=== PATIENT | female | born 1995 | race Caucasian/White ===

== ENCOUNTER 2017-08-09 10:06 | Emergency (ER) | payer SELFPAY ==
[2017-08-09] MEDS ORDERED: IBUPROFEN 400 MG TAB ONE (10:50)
[2017-08-09] MEDS ORDERED: IBUPROFEN 200 MG TAB PO ONE (10:50)
--- NOTE | 2017-08-09 11:34 | RAD REPORT ---
EXAM DESCRIPTION: RAD - Shoulder Left 2 View - 08/09/2017 11:25 am CLINICAL HISTORY: pain COMPARISON: No comparisons FINDINGS: No bone or joint abnormality detected. IMPRESSION: Negative study.
--- NOTE | 2017-08-09 11:49 | EDPHYS ---
Physician Documentation [facility] Name: Gail Juárez Age: 22 yrs Sex: Female : 1995 Arrival Date: 08/09/2017 Time: 10:09 Bed 14 Private MD: None, None ED Physician Joseph Cai HPI: 08/09 10:41 This 22 yrs old Female presents to ER via Ambulatory with complaints of Left pm1 Shoulder Pain. 10:41 The patient or guardian complains of pain. left shoulder. Context: The problem was pm1 sustained at home, resulted from lifting or carrying, a heavy object, The patient experiences decreased range of motion, when attempts to raise arm, The patient reports no obvious deformity. Onset: The symptoms/episode began/occurred last night. Modifying factors: the symptoms are alleviated by Resting left shoulder, The symptoms are aggravated by rotation of arm, Movement of left arm. Associated signs and symptoms: Pertinent negatives: chest pain, diaphoresis, neck pain, Numbness in left arm shortness of breath, tingling, Weakness in left arm. Severity of symptoms: in the emergency department the symptoms are unchanged. Treatment prior to arrival includes: no previous treatment. The patient has not experienced similar symptoms in the past. Patient lifts heavy objects at work. Onset of left shoulder pain last night. Pain increased with raising left arm above her shoulder and rotating left arm. 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 - Social history:: Smoking status: Patient/guardian denies using tobacco. - Ebola Screening: : No symptoms or risks identified at this time. ROS: 10:41 Constitutional: Negative for fever, chills, and weight loss, Eyes: Negative for injury, pm1 pain, redness, and discharge, ENT: Negative for injury, pain, and discharge, Neck: Negative for injury, pain, and swelling, Cardiovascular: Negative for chest pain, palpitations, and edema, Respiratory: Negative for shortness of breath, cough, wheezing, and pleuritic chest pain, Abdomen/GI: Negative for abdominal pain, nausea, vomiting, diarrhea, and constipation, Back: Negative for injury and pain. 10:41 Skin: Negative for injury, rash, and discoloration, Neuro: Negative for headache, weakness, numbness, tingling, and seizure. 10:41 MS/extremity: Positive for pain, of the left shoulder, Negative for deformity, paresthesias, tingling. Exam: 10:41 Constitutional: This is a well developed, well nourished patient who is awake, alert, pm1 and in no acute distress. Head/Face: Normocephalic, atraumatic. Neck: Trachea midline, no thyromegaly or masses palpated, and no cervical lymphadenopathy. Supple, full range of motion without nuchal rigidity, or vertebral point tenderness. No Meningismus. Chest/axilla: Normal chest wall appearance and motion. Nontender with no deformity. No lesions are appreciated. Cardiovascular: Regular rate and rhythm with a normal S1 and S2. No gallops, murmurs, or rubs. Normal PMI, no JVD. No pulse deficits. Respiratory: Lungs have equal breath sounds bilaterally, clear to auscultation and percussion. No rales, rhonchi or wheezes noted. No increased work of breathing, no retractions or nasal flaring. Abdomen/GI: Soft, non-tender, with normal bowel sounds. No distension or tympany. No guarding or rebound. No evidence of tenderness throughout. Back: No spinal tenderness. No costovertebral tenderness. Full range of motion. Skin: Warm, dry with normal turgor. Normal color with no rashes, no lesions, and no evidence of cellulitis. 10:41 Musculoskeletal/extremity: Extremities: grossly normal except: noted in the Tenderness with palpation in supraspinatus insertion point: Pain with passive FROM to left arm. Increased pain with left arm raised above shoulder and rotation posteriorly, Circulation is intact in all extremities. Sensation intact. Vital Signs: 10:21 BP 121 / 75; Pulse 87; Resp 16 S; Temp 98.3(O); Pulse Ox 96% on R/A; Weight 89.36 kg jl7 (R); Height 5 ft. 7 in. (170.18 cm) (R); Pain 4/10; 11:57 BP 107 / 62; Pulse 75; Resp 16; Pulse Ox 99% ; Pain 2/10; jl7 10:21 Body Mass Index 30.85 (89.36 kg, 170.18 cm) jl7 MDM: 10:24 Patient medically screened. pm1 10:59 Data reviewed: vital signs. Data interpreted: Pulse oximetry: on room air is 96 %. pm1 Interpretation: normal. 11:46 Counseling: I had a detailed discussion with the patient and/or guardian regarding: the pm1 historical points, exam findings, and any diagnostic results supporting the discharge/admit diagnosis, radiology results, the need for outpatient follow up, to return to the emergency department if symptoms worsen or persist or if there are any questions or concerns that arise at home. 08/09 11:12 Order name: Urine Dipstick--Ancillary (enter results) 08/09 11:12 Order name: Test Urine - POC 08/09 10:30 Order name: Urine Dipstick-Ancillary (obtain specimen); Complete Time: 11:15 pm1 08/09 10:46 Order name: Shoulder Left 2 View; Complete Time: 11:46 [facility] 08/09 10:30 Order name: Urine Test (obtain specimen); Complete Time: 11:15 pm1 Administered Medications: 11:15 Drug: Ibuprofen 600 mg Route: PO; 7 11:58 Follow up: Response: No adverse reaction; Pain is decreased jl7 Disposition: 13:35 Co-signature as Attending Physician, Joseph Cai MD I agree with the assessment and kdr plan of care. Disposition: 08/09/17 11:48 Discharged to Home. Impression: Pain in left shoulder - possible strain of muscle and tendons of left rotator cuff. - Condition is Stable. - Discharge Instructions: Shoulder Pain, Shoulder Sprain. - Prescriptions for Diclofenac Sodium 75 mg Oral Tablet Sustained Release - take 1 tablet by ORAL route 2 times per day; 30 tablet. - Medication Reconciliation Form, Thank You Letter form. - Follow up: Emergency Department; When: As needed; Reason: Worsening of condition. Follow up: Private Physician; When: 1 - 2 days; Reason: Recheck today's complaints, Continuance of care, Re-evaluation by your physician. - Problem is new. - Symptoms have improved. Signatures: Dispatcher [employer] [facility] Joseph Cai MD MD kdr Marinas, Patrick, NP INVESTIGATOR NARCOTICS pm1 Silvia Isidro, RN RN jl7 Corrections: (The following items were deleted from the chart) 11:51 11:48 08/09/2017 11:48 Discharged to Home. Impression: Strain of muscle(s) and pm1 tendon(s) of the rotator cuff of left shoulder. Condition is Stable. Forms are Medication Reconciliation Form, Thank You Letter, Antibiotic Education, Prescription Opioid Use. Follow up: Emergency Department; When: As needed; Reason: Worsening of condition. Follow up: Private Physician; When: 1 - 2 days; Reason: Recheck today's complaints, Continuance of care, Re-evaluation by your physician. Problem is new. Symptoms have improved. pm1 12:01 11:51 08/09/2017 11:48 Discharged to Home. Impression: Pain in left shoulder - possible jl7 strain of muscle and tendons of left rotator cuff. Condition is Stable. Discharge Instructions: Shoulder Pain, Shoulder Sprain. Forms are Medication Reconciliation Form, Thank You Letter. Follow up: Emergency Department; When: As needed; Reason: Worsening of condition. Follow up: Private Physician; When: 1 - 2 days; Reason: Recheck today's complaints, Continuance of care, Re-evaluation by your physician. Problem is new. Symptoms have improved. pm1
--- NOTE | 2017-08-09 11:49 | ER ---
Nurse's Notes [facility] Name: Gail Juárez Age: 22 yrs Sex: Female : 1995 Arrival Date: 08/09/2017 Time: 10:09 Bed 14 Private MD: None, None Diagnosis: Pain in left shoulder-possible strain of muscle and tendons of left rotator cuff Presentation: 08/09 10:17 Presenting complaint: Patient states: Reports left shoulder pain that began yesterday, jl7 denies trauma. Transition of care: patient was not received from another setting of care. Onset of symptoms was August 08, 2017. Risk Assessment: Do you want to hurt yourself or someone else? Patient reports no desire to harm self or others. Initial Sepsis Screen: Does the patient meet any 2 criteria? No. Patient's initial sepsis screen is negative. Does the patient have a suspected source of infection? No. Patient's initial sepsis screen is negative. Care prior to arrival: None. 10:17 Method Of Arrival: Ambulatory [facility] 10:17 Acuity: CHAYO 4 jl7 Triage Assessment: 10:19 General: Appears in no apparent distress. uncomfortable, Behavior is calm, cooperative, jl7 appropriate for age. Pain: Complains of pain in left shoulder Pain does not radiate. Pain currently is 4 out of 10 on a pain scale. Quality of pain is described as "Sore" Pain began 1 day ago. Is continuous, Alleviated by rest, Aggravated by increased activity, repositioning. EENT: No signs and/or symptoms were reported regarding the EENT system. Neuro: Level of Consciousness is awake, alert, obeys commands, Oriented to person, place, time, situation. Cardiovascular: Patient's skin is warm and dry. Respiratory: Airway is patent Respiratory effort is even, unlabored, Respiratory pattern is regular, symmetrical. GI: No signs and/or symptoms were reported involving the gastrointestinal system. : No signs and/or symptoms were reported regarding the genitourinary system. Derm: Skin is pink, warm \\T\\ dry. Musculoskeletal: Range of motion: limited in left shoulder Swelling absent Reports pain in left shoulder Pain is 4 out of 10 on a pain scale. 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 - Social history:: Smoking status: Patient/guardian denies using tobacco. - Ebola Screening: : No symptoms or risks identified at this time. Screenin:22 Abuse screen: Denies threats or abuse. Denies injuries from another. Nutritional jl7 screening: No deficits noted. Tuberculosis screening: No symptoms or risk factors identified. Fall Risk None identified. Assessment: 10:22 General: See triage assessment. jl7 11:00 Reassessment: Patient and/or family updated on plan of care and expected duration. Pain jl7 level reassessed. Patient is alert, oriented x 3, equal unlabored respirations, skin warm/dry/pink. Patient states feeling better. Vital Signs: 10:21 BP 121 / 75; Pulse 87; Resp 16 S; Temp 98.3(O); Pulse Ox 96% on R/A; Weight 89.36 kg jl7 (R); Height 5 ft. 7 in. (170.18 cm) (R); Pain 4/10; 11:57 BP 107 / 62; Pulse 75; Resp 16; Pulse Ox 99% ; Pain 2/10; jl7 10:21 Body Mass Index 30.85 (89.36 kg, 170.18 cm) jl7 ED Course: 10:09 Patient arrived in ED. mr 10:09 None, None is Private Physician. mr 10:11 Silvia Isidro, SUNDAR is Primary Nurse. jl7 10:13 Jus Valdez NP is PHCP. pm1 10:13 Joseph Cai MD is Attending Physician. pm1 10:18 Triage completed. jl7 10:21 Arm band placed on right wrist. jl7 10:22 Patient has correct armband on for positive identification. Placed in gown. Bed in low jl7 position. Call light in reach. Side rails up X 1. Pulse ox on. NIBP on. 11:24 X-ray completed. Portable x-ray completed in exam room. Patient tolerated procedure tm4 well. 11:25 Shoulder Left 2 View In Process Unspecified. EDMS 11:57 No provider procedures requiring assistance completed. Patient did not have IV access jl7 during this emergency room visit. Administered Medications: 11:15 Drug: Ibuprofen 600 mg Route: PO; jl7 11:58 Follow up: Response: No adverse reaction; Pain is decreased jl7 Outcome: 11:48 Discharge ordered by . pm1 11:57 Discharged to home ambulatory. jl7 11:57 Condition: stable 11:57 Discharge instructions given to patient, Instructed on discharge instructions, follow up and referral plans. medication usage, Demonstrated understanding of instructions, follow-up care, medications, Prescriptions given X 1. 12:01 Patient left the ED. jl7 Signatures: Dispatcher [employer] EDCT Cherelle Landon mr Arce, Jessica tm4 Jus Valdez NP SKIDDER OPERATOR pm1 Silvia Isidro RN RN jl7
[2017-08-09 12:08] VITALS: TEMP 98.3
[2017-08-09 12:09] VITALS: BP 107/62; O2SAT 99
[2017-08-09 14:56] LABS: Urine Blood NEGATIVE (NEG); Urine Glucose NEGATIVE (NEG); Urine Protein NEGATIVE (NEG); Urine Specific Gravity 1.025 (1.005-1.030); Urine pH 5.5 (5.0-7.0)
== END 2017-08-09 12:01 | disposition home or self-care (01) ==
LOC: ER 10:06
DX: S46.012A Strain of muscle(s) and tendon(s) of the rotator cuff of left shoulder, initial encounter (principal); X50.0XXA Overexertion from strenuous movement or load, initial encounter; Y93.89 Activity, other specified; Y92.89 Other specified places as the place of occurrence of the external cause; Y99.8 Other external cause status
CPT/HCPCS: 81003; 81025; 99284

== ENCOUNTER 2017-09-22 19:11 | Emergency (ER) | payer SELFPAY ==
--- NOTE | 2017-09-22 20:22 | EDPHYS ---
Physician Documentation [facility] Name: Gail Juárez Age: 22 yrs Sex: Female : 1995 Arrival Date: 09/22/2017 Time: 19:13 Bed 11 Private MD: ED Physician Nahum Roberts HPI: 09/22 19:53 This 22 yrs old Female presents to ER via Ambulatory with complaints of snw Fever, Body aches. 19:53 The patient reports fever, not measured (subjective). Onset: The symptoms/episode snw began/occurred suddenly, 3 day(s) ago, and became persistent. Modifying factors: there are no obvious modifying factors. Associated signs and symptoms: Pertinent positives: headache, myalgias, sore throat. Severity of symptoms: At their worst the symptoms were moderate. The patient has not experienced similar symptoms in the past. The patient has not recently seen a physician. possibly . 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 - Social history:: Smoking status: Patient/guardian denies using tobacco. - Ebola Screening: : No symptoms or risks identified at this time. ROS: 19:52 Eyes: Negative for injury, pain, redness, and discharge. snw 19:52 Neck: Negative for injury, pain, and swelling, Cardiovascular: Negative for chest pain, palpitations, and edema, Respiratory: Negative for shortness of breath, cough, wheezing, and pleuritic chest pain, Abdomen/GI: Negative for abdominal pain, nausea, vomiting, diarrhea, and constipation, Back: Negative for injury and pain, : Negative for injury, bleeding, discharge, and swelling. 19:52 MS/Extremity: Negative for injury and deformity, Skin: Negative for injury, rash, and discoloration. 19:52 Constitutional: Positive for body aches, chills, fever, malaise. 19:52 ENT: Positive for sore throat. 19:52 Neuro: Positive for headache. Exam: 19:51 Head/Face: Normocephalic, atraumatic. Eyes: Pupils equal round and reactive to light, snw extra-ocular motions intact. Lids and lashes normal. Conjunctiva and sclera are non-icteric and not injected. Cornea within normal limits. Periorbital areas with no swelling, redness, or edema. Neck: Trachea midline, no thyromegaly or masses palpated, and no cervical lymphadenopathy. Supple, full range of motion without nuchal rigidity, or vertebral point tenderness. No Meningismus. Chest/axilla: Normal chest wall appearance and motion. Nontender with no deformity. No lesions are appreciated. Respiratory: Lungs have equal breath sounds bilaterally, clear to auscultation and percussion. No rales, rhonchi or wheezes noted. No increased work of breathing, no retractions or nasal flaring. Abdomen/GI: Soft, non-tender, with normal bowel sounds. No distension or tympany. No guarding or rebound. No evidence of tenderness throughout. Back: No spinal tenderness. No costovertebral tenderness. Full range of motion. Skin: Warm, dry with normal turgor. Normal color with no rashes, no lesions, and no evidence of cellulitis. MS/ Extremity: Pulses equal, no cyanosis. Neurovascular intact. Full, normal range of motion. Neuro: Awake and alert, GCS 15, oriented to person, place, time, and situation. Cranial nerves II-XII grossly intact. Motor strength 5/5 in all extremities. Sensory grossly intact. Cerebellar exam normal. Normal gait. Psych: Awake, alert, with orientation to person, place and time. Behavior, mood, and affect are within normal limits. 19:51 Constitutional: The patient appears alert, awake, uncomfortable. 19:51 ENT: TM's: are normal, Nose: is normal, Mouth: is normal, Posterior pharynx: erythema, that is moderate, Voice: is normal. 19:51 Cardiovascular: Rate: tachycardic, Pulses: no pulse deficits are appreciated, Heart sounds: normal. Vital Signs: 19:28 BP 130 / 80; Pulse 91; Resp 16; Temp 100.1(TE); Pulse Ox 100% on R/A; Weight 86.18 kg; la1 Height 5 ft. 7 in. (170.18 cm); 19:28 Body Mass Index 29.76 (86.18 kg, 170.18 cm) la1 MDM: 19:43 Patient medically screened. snw 20:29 Data reviewed: vital signs, nurses notes. Data interpreted: Pulse oximetry: on room air snw is 100 %. Interpretation: normal. Counseling: I had a detailed discussion with the patient and/or guardian regarding: the historical points, exam findings, and any diagnostic results supporting the discharge/admit diagnosis, the presence of at least one elevated blood pressure reading (>120/80) during this emergency department visit, lab results, the need for outpatient follow up, to return to the emergency department if symptoms worsen or persist or if there are any questions or concerns that arise at home. Special discussion: Based on the history and exam findings, there is no indication for further emergent testing or inpatient evaluation. I discussed with the patient/guardian the need to see the primary care provider for further evaluation of the symptoms. 09/22 19:42 Order name: Strep; Complete Time: 20:19 snw 09/22 20:32 Order name: Throat Culture EDMS Administered Medications: 20:38 Drug: Decadron 8 mg Route: PO; lp1 20:38 Follow up: Response: Medication administered at discharge. lp1 20:38 Drug: Zithromax 500 mg Route: PO; lp1 20:38 Follow up: Response: Medication administered at discharge. lp1 Disposition: 09/23 14:00 Co-signature as Attending Physician, Nahum Roberts MD I agree with the assessment and amber plan of care. Disposition: 09/22/17 20:22 Discharged to Home. Impression: Acute pharyngitis. - Condition is Stable. - Discharge Instructions: Fever, Adult, Infectious Mononucleosis, Pharyngitis, Rehydration, Adult. - Prescriptions for Zithromax 500 mg Oral Tablet - take 1 tablet by ORAL route once daily for 5 days; 5 tablet. - Work release form, Medication Reconciliation Form, Thank You Letter, Antibiotic Education, Prescription Opioid Use form. - Follow up: Private Physician; When: 2 - 3 days; Reason: Recheck today's complaints, Continuance of care, Re-evaluation by your physician. Follow up: Emergency Department; When: As needed; Reason: Worsening of condition. Signatures: Dispatcher [employer] Nahum Lr MD MD cha Therrien, Shelly, NARCOTICS AGENT-C NARCOTICS AGENT-Csnw Kim Boyer RN RN lp1 Wild Douglas RN RN la1 Corrections: (The following items were deleted from the chart) 09/22 20:13 19:51 Urine Test ordered. w lp1 20:39 20:22 09/22/2017 20:22 Discharged to Home. Impression: Acute pharyngitis. Condition is lp1 Stable. Forms are Medication Reconciliation Form, Thank You Letter, Antibiotic Education, Prescription Opioid Use. Follow up: Private Physician; When: 2 - 3 days; Reason: Recheck today's complaints, Continuance of care, Re-evaluation by your physician. Follow up: Emergency Department; When: As needed; Reason: Worsening of condition. kurt
--- NOTE | 2017-09-22 20:22 | ER ---
Nurse's Notes [facility] Name: Gail Juárez Age: 22 yrs Sex: Female : 1995 Arrival Date: 09/22/2017 Time: 19:13 Bed 11 Private MD: Diagnosis: Acute pharyngitis Presentation: 09/22 19:28 Presenting complaint: Patient states: fever, body aches, sore throat, chills, for 3 la1 days. Transition of care: patient was not received from another setting of care. Onset of symptoms was September 22, 2017. Risk Assessment: Do you want to hurt yourself or someone else? Patient reports no desire to harm self or others. Initial Sepsis Screen: Does the patient meet any 2 criteria? No. Patient's initial sepsis screen is negative. Does the patient have a suspected source of infection? No. Patient's initial sepsis screen is negative. Care prior to arrival: None. 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 - Social history:: Smoking status: Patient/guardian denies using tobacco. - Ebola Screening: : No symptoms or risks identified at this time. Screenin:50 Abuse screen: Denies threats or abuse. Denies injuries from another. Nutritional lp1 screening: No deficits noted. Tuberculosis screening: No symptoms or risk factors identified. Fall Risk None identified. Assessment: 19:48 General: Appears in no apparent distress. Behavior is appropriate for age, Reports lp1 feeling ill for fatigue for. Pain: Complains of pain in generalized body Pain currently is 6 out of 10 on a pain scale. Quality of pain is described as aching, Pain began 2-3 days ago. Neuro: Level of Consciousness is awake, alert, obeys commands, Reports headache. Cardiovascular: Patient's skin is warm and dry. Respiratory: Reports cough that is productive, Respiratory effort is even, unlabored, Respiratory pattern is regular, symmetrical, Breath sounds are clear bilaterally. GI: No signs and/or symptoms were reported involving the gastrointestinal system. : No signs and/or symptoms were reported regarding the genitourinary system. EENT: Throat is reddened. Derm: Skin is pink, warm \T\ dry. Musculoskeletal: Circulation, motion, and sensation intact. Vital Signs: 19:28 BP 130 / 80; Pulse 91; Resp 16; Temp 100.1(TE); Pulse Ox 100% on R/A; Weight 86.18 kg; la1 Height 5 ft. 7 in. (170.18 cm); 19:28 Body Mass Index 29.76 (86.18 kg, 170.18 cm) la1 ED Course: 19:13 Patient arrived in ED. es 19:28 Triage completed. la1 19:29 Arm band placed on right wrist. la1 19:37 Kim Boyer, RN is Primary Nurse. lp1 19:42 [facility]C [facility] snw 19:42 Nahum Roberts MD is Attending Physician. snw 19:48 Strep swab sent to lab. lp1 19:51 Patient has correct armband on for positive identification. lp1 19:51 No provider procedures requiring assistance completed. Patient did not have IV access lp1 during this emergency room visit. Administered Medications: 20:38 Drug: Decadron 8 mg Route: PO; lp1 20:38 Follow up: Response: Medication administered at discharge. lp1 20:38 Drug: Zithromax 500 mg Route: PO; lp1 20:38 Follow up: Response: Medication administered at discharge. lp1 Outcome: 20:22 Discharge ordered by . snw 20:38 Discharged to home ambulatory. lp1 20:38 Condition: good 20:38 Discharge instructions given to patient, Instructed on discharge instructions, follow up and referral plans. medication usage, Demonstrated understanding of instructions, follow-up care, medications, Prescriptions given X 1. 20:39 Patient left the ED. lp1 Signatures: Irene Alex FNP-C FURNACE CLERK-CsnJo High Kim Boyer RN RN lp1 Wild Douglas RN RN la1 Corrections: (The following items were deleted from the chart) 20:23 19:48 EENT: No signs and/or symptoms were reported regarding the EENT system. lp1 lp1
[2017-09-22] MEDS ORDERED: AZITHROMYCIN 250 MG TAB ONE (20:37)
[2017-09-22] MEDS ORDERED: DEXAMETHASONE 4 MG TAB ONE (20:38)
[2017-09-22 20:47] VITALS: BP 130/80; TEMP 100.1; O2SAT 100
== END 2017-09-22 20:39 | disposition home or self-care (01) ==
LOC: EEVIPCON 19:11 → ER 19:11
DX: J02.9 Acute pharyngitis, unspecified (principal)
CPT/HCPCS: 87070; 87081; 99283

== ENCOUNTER 2018-03-17 16:35 | Emergency (ER) | payer OTHER, SELFPAY ==
--- OUTSIDE RECORDS SUMMARY | 2018-03-17 16:37 | XMS REPORT ---
:1995 [facility] Address [address] [place] [address] Dr. Gallegos [address] [place] [id number] Care Team Providers Name Role Phone Unavailable Unavailable Unavailable Problems This patient has no known problems. Allergies, Adverse Reactions, Alerts This patient has no known allergies or adverse reactions. Medications This patient has no known medications.
[2018-03-17 17:41] LABS: Absolute Lymphocytes (CBC) 1.8 K/uL (0.7-4.9); Absolute Monocytes 0.5 K/uL (0.1-1.3); Absolute Neutrophil 3.8 K/uL (1.8-8.0); Basophils % 0.2 % (0-1.3); Eosinophils % 0.2 % (0-4.4); Hematocrit 41.3 % (36.0-45.0); Lymphocytes % 28.8 % (15.3-44.8); MPV 8.6 fL (7.6-11.3); Monocytes % 8.3 % (3.3-12.3); RBC Red Blood Cell Count 4.86 M/uL (3.86-4.86)
[2018-03-17 18:13] LABS: Urine Amorphous Sediment 1+ /HPF (NONE SEEN); Urine Bacteria <20 /HPF (<20); Urine Culture Reflex Order NOT NEEDED; Urine Mucus 4+ /HPF (NONE SEEN); Urine RBC <5 /HPF (NONE SEEN)
[2018-03-17 18:15] LABS: BUN Blood Urea Nitrogen 7 mg/dL (7-18); Bicarbonate 26 mmol/L (21-32); Glucose Level 75 mg/dL (74-106); HCG, Quantitative 144721 mIU/mL (1-3); Potassium 3.9 mmol/L (3.5-5.1); Sodium Level 139 mmol/L (136-145)
[2018-03-17 18:51] LABS: Urine Blood NEGATIVE (NEG); Urine Glucose NEGATIVE (NEG); Urine Protein TRACE (NEG)
[2018-03-17 19:13] LABS: Albumin 3.4 g/dL (3.4-5.0); Bilirubin Direct 0.2 mg/dL (0-0.2); Bilirubin Total 0.3 mg/dL (0.2-1.0); Protein, Total 7.5 g/dL (6.4-8.2)
--- NOTE | 2018-03-17 19:27 | ER ---
Nurse's Notes [facility] Name: Gail Juárez Age: 22 yrs Sex: Female : 1995 Arrival Date: 03/17/2018 Time: 16:38 Bed 23 Private MD: None, None Diagnosis: Intermittent epigastric pain Presentation: 03/17 16:38 Presenting complaint: Patient states: i am 9 weeks and i have been feeling a tw2 tightness in my stomach and then it releases, my family wanting me to come to make sure i am not miscarrying, it started a couple of days ago. Transition of care: patient was not received from another setting of care. Onset of symptoms was March 17, 2018. Risk Assessment: Do you want to hurt yourself or someone else? Patient reports no desire to harm self or others. Initial Sepsis Screen: Does the patient meet any 2 criteria? No. Patient's initial sepsis screen is negative. Does the patient have a suspected source of infection? No. Patient's initial sepsis screen is negative. Care prior to arrival: None. 16:38 Method Of Arrival: Ambulatory tw2 16:38 Method Of Arrival: Ambulatory tw2 16:38 Acuity: CHAYO 3 tw2 Triage Assessment: 16:40 General: Appears in no apparent distress. Behavior is calm, cooperative, appropriate tw2 for age. Pain: Denies pain. 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 - Social history:: Smoking status: . - Ebola Screening: : Patient denies travel to an Ebola-affected area in the 21 days before illness onset. - Family history:: not pertinent. - Hospitalizations: : No recent hospitalization is reported. Screenin:00 Abuse screen: Denies threats or abuse. Nutritional screening: No deficits noted. tl3 Tuberculosis screening: No symptoms or risk factors identified. Fall Risk None identified. Assessment: 17:00 General: Appears in no apparent distress. comfortable, slender, well groomed, well tl3 developed, well nourished, Behavior is calm, cooperative, appropriate for age. Pain: Complains of pain in epigastric area. Neuro: No deficits noted. Level of Consciousness is awake, alert, obeys commands, Oriented to person, place, time, situation, Appropriate for age. Cardiovascular: Patient's skin is warm and dry. Respiratory: Airway is patent Respiratory effort is even, unlabored, Respiratory pattern is regular, symmetrical. GI: Abdomen is round Reports pain in the epigastric area. : Urine is clear, Denies discharge, vaginal bleeding. EENT: No signs and/or symptoms were reported regarding the EENT system. Derm: No signs and/or symptoms reported regarding the dermatologic system. Musculoskeletal: No signs and/or symptoms reported regarding the musculoskeletal system. 18:45 Reassessment: No changes from previously documented assessment. Patient and/or family tl3 updated on plan of care and expected duration. Pain level reassessed. Patient is alert, oriented x 3, equal unlabored respirations, skin warm/dry/pink. pt awaiting results. 19:20 Reassessment: Dr Moore at bedside discussing POC. tl3 Vital Signs: 16:39 BP 116 / 61; Pulse 93; Resp 17; Temp 98.2(O); Pulse Ox 99% on R/A; Weight 89.81 kg (R); tw2 Pain 0/10; 17:00 BP 122 / 70; Pulse 74; Resp 18; Pulse Ox 100% on R/A; tl3 18:03 BP 106 / 64; Pulse 84; Resp 18; Pulse Ox 100% on R/A; tl3 18:45 BP 107 / 69; Pulse 76; Resp 18; Pulse Ox 100% on R/A; tl3 ED Course: 16:38 Patient arrived in ED. sb2 16:38 None, None is Private Physician. sb2 16:39 Triage completed. tw2 16:39 Arm band placed on. tw2 16:45 Inserted saline lock: 20 gauge in right antecubital area, using aseptic technique. tl3 16:58 Medhat Moore MD is Attending Physician. wa 17:00 Patient has correct armband on for positive identification. Placed in gown. Bed in low tl3 position. Call light in reach. Side rails up X 1. Pulse ox on. NIBP on. 17:00 No provider procedures requiring assistance completed. tl3 17:49 Fouzia Pollard, RN is Primary Nurse. tl3 17:50 TRANSVAG OB Sent. tl3 17:54 TRANSVAG OB In Process Unspecified. EDMS 19:25 Nan Uribe MD is Referral Physician. la 19:32 IV discontinued, intact, bleeding controlled, No redness/swelling at site. Pressure tl3 dressing applied. Administered Medications: No medications were administered Point of Care Testing: Urine : 17:00 hCG Reading: Positive; tl3 Outcome: 19:26 Discharge ordered by . wa 19:32 Discharged to home ambulatory. tl3 19:32 Condition: stable 19:32 Discharge instructions given to patient, Instructed on discharge instructions, follow up and referral plans. medication usage, Demonstrated understanding of instructions, follow-up care, medications, Prescriptions given X 1. 19:33 Patient left the ED. tl3 Signatures: Dispatcher [employer] EDMS Kimberley Patel RN RN tw2 Medhat Moore MD MD la Luann Rodriguez 2 Fouzia Pollard, RN RN tl3
--- NOTE | 2018-03-17 19:27 | EDPHYS ---
Physician Documentation [facility] Name: Gail Juárez Age: 22 yrs Sex: Female : 1995 Arrival Date: 03/17/2018 Time: 16:38 Bed 23 Private MD: None, None ED Physician Medhat Moore HPI: 03/17 17:17 This 22 yrs old Female presents to ER via Ambulatory with complaints of Abd wa Tightness 9WK PG. 17:17 The patient presents with abdominal pain in the epigastric area, c/o intermittent wa epigastric tightness that lasts for seconds at a time. admits to vomiting throughout this early . denies low abd pain or vag bleed. states wants to make sure she is not having a "miscarriage." 2, para 1. has had a positive preg test at [facility] but not had US. Onset: The symptoms/episode began/occurred 3 day(s) ago. The symptoms do not radiate. Associated signs and symptoms: Pertinent positives: nausea and vomiting, Pertinent negatives: diarrhea, dysuria, fever, vaginal discharge, denies vag bleed. The symptoms are described as intermittent, tightness. Modifying factors: The symptoms are alleviated by nothing, the symptoms are aggravated by nothing. Severity of pain: At its worst the pain was moderate in the emergency department the pain has resolved. The patient has not experienced similar symptoms in the past. The patient has not recently seen a physician. 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 - Social history:: Smoking status: . - Ebola Screening: : Patient denies travel to an Ebola-affected area in the 21 days before illness onset. - Family history:: not pertinent. - Hospitalizations: : No recent hospitalization is reported. ROS: 17:20 Constitutional: Negative for fever, chills, and weight loss, Eyes: Negative for injury, wa pain, redness, and discharge, ENT: Negative for injury, pain, and discharge, Neck: Negative for injury, pain, and swelling, Cardiovascular: Negative for chest pain, palpitations, and edema, Respiratory: Negative for shortness of breath, cough, wheezing, and pleuritic chest pain, Back: Negative for injury and pain, : Negative for injury, bleeding, discharge, and swelling, MS/Extremity: Negative for injury and deformity, Skin: Negative for injury, rash, and discoloration, Neuro: Negative for headache, weakness, numbness, tingling, and seizure. 17:20 Abdomen/GI: Positive for abdominal pain, of the epigastric area. 17:20 All other systems are negative. Exam: 17:21 Constitutional: This is a well developed, well nourished patient who is awake, alert, wa and in no acute distress. Head/Face: Normocephalic, atraumatic. Eyes: Pupils equal round and reactive to light, extra-ocular motions intact. Lids and lashes normal. Conjunctiva and sclera are non-icteric and not injected. Cornea within normal limits. Periorbital areas with no swelling, redness, or edema. ENT: Nares patent. No nasal discharge, no septal abnormalities noted. Tympanic membranes are normal and external auditory canals are clear. Oropharynx with no redness, swelling, or masses, exudates, or evidence of obstruction, uvula midline. Mucous membranes moist. Neck: Trachea midline, no thyromegaly or masses palpated, and no cervical lymphadenopathy. Supple, full range of motion without nuchal rigidity, or vertebral point tenderness. No Meningismus. Chest/axilla: Normal chest wall appearance and motion. Nontender with no deformity. No lesions are appreciated. Cardiovascular: Regular rate and rhythm with a normal S1 and S2. No gallops, murmurs, or rubs. Normal PMI, no JVD. No pulse deficits. Respiratory: Lungs have equal breath sounds bilaterally, clear to auscultation and percussion. No rales, rhonchi or wheezes noted. No increased work of breathing, no retractions or nasal flaring. Back: No spinal tenderness. No costovertebral tenderness. Full range of motion. Skin: Warm, dry with normal turgor. Normal color with no rashes, no lesions, and no evidence of cellulitis. MS/ Extremity: Pulses equal, no cyanosis. Neurovascular intact. Full, normal range of motion. Neuro: Awake and alert, GCS 15, oriented to person, place, time, and situation. Cranial nerves II-XII grossly intact. Motor strength 5/5 in all extremities. Sensory grossly intact. Cerebellar exam normal. Normal gait. Psych: Awake, alert, with orientation to person, place and time. Behavior, mood, and affect are within normal limits. 17:21 Abdomen/GI: Inspection: abdomen appears normal. Vital Signs: 16:39 BP 116 / 61; Pulse 93; Resp 17; Temp 98.2(O); Pulse Ox 99% on R/A; Weight 89.81 kg (R); tw2 Pain 0/10; 17:00 BP 122 / 70; Pulse 74; Resp 18; Pulse Ox 100% on R/A; tl3 18:03 BP 106 / 64; Pulse 84; Resp 18; Pulse Ox 100% on R/A; tl3 18:45 BP 107 / 69; Pulse 76; Resp 18; Pulse Ox 100% on R/A; tl3 MDM: 16:58 Patient medically screened. nv 17:26 Differential diagnosis: normal exam. pt has already had a cholecystectomy. non-tender wa abd. will eval and re-eval. 19:21 Data reviewed: vital signs, nurses notes. Test interpretation: by ED physician or nv midlevel provider: labs noted within normal limits. US 9 wk IUP. no abnml. UA noted for ketones but no infection. liver enzymes and lipase noted within nml limits. pt asymptomatic at time of visit and at time of d/c. Response to treatment: the patient's symptoms have markedly improved after treatment. 03/17 17:11 Order name: Quantitative Hcg; Complete Time: 18:34 nv 03/17 17:11 Order name: Abo/rh Typing; Complete Time: 18:34 nv 03/17 17:11 Order name: Basic Metabolic Panel; Complete Time: 18:34 nv 03/17 17:11 Order name: CBC with Diff; Complete Time: 18:34 nv 03/17 17:11 Order name: Urine Microscopic Only; Complete Time: 18:34 nv 03/17 17:28 Order name: Lipase; Complete Time: 19:19 nv 03/17 17:11 Order name: Urine Test (obtain specimen); Complete Time: 17:58 nv 03/17 17:11 Order name: IV Saline Lock; Complete Time: 17:58 nv 03/17 17:16 Order name: TRANSVAG OB [facility] 03/17 17:59 Order name: Urine Dipstick--Ancillary (enter results); Complete Time: 19:19 03/17 17:59 Order name: Urine --Ancillary (enter results); Complete Time: 19:19 03/17 18:05 Order name: ABO/RH no charge; Complete Time: 18:34 [facility] 03/17 18:48 Order name: LFT's; Complete Time: 19:19 nv 03/17 17:11 Order name: Labs collected and sent; Complete Time: 17:50 nv 03/17 17:11 Order name: NPO; Complete Time: 17:50 nv 03/17 17:11 Order name: Urine Dipstick-Ancillary (obtain specimen); Complete Time: 17:58 nv Administered Medications: No medications were administered Point of Care Testing: Urine : 17:00 hCG Reading: Positive; tl3 Disposition: 03/17/18 19:26 Discharged to Home. Impression: Intermittent epigastric pain. - Condition is Stable. - Discharge Instructions: Abdominal Pain, Adult, [id number]. - Prescriptions for promethazine 12.5 mg Oral tablet - take 1 tablet by ORAL route every 8-12 hours; 10 tablet. - Medication Reconciliation Form, Thank You Letter, Antibiotic Education, Prescription Opioid Use form. - Follow up: Nan Uribe MD; When: 1 - 2 days. - Problem is new. - Symptoms have improved. - Notes: you may take tylenol for pain. return for worsening concerns immediately. see your doctor for follow up within 1-3 days as discussed Signatures: Dispatcher [employer] [facility] Kimberley Patel, RN RN tw2 Medhat Moore MD MD nv Fouzia Pollard, RN RN tl3 Corrections: (The following items were deleted from the chart) 17:17 17:15 Transvaginal Study (Probe)+[id number] ordered. [facility] 19:33 19:26 03/17/2018 19:26 Discharged to Home. Impression: Intermittent epigastric pain. tl3 Condition is Stable. Forms are Medication Reconciliation Form, Thank You Letter, Antibiotic Education, Prescription Opioid Use. Follow up: Nan Uribe; When: 1 - 2 days. Problem is new. Symptoms have improved. wa
--- NOTE | 2018-03-17 19:34 | RAD REPORT ---
EXAM DESCRIPTION: US - TRANSVAG OB - 03/17/2018 5:54 pm CLINICAL HISTORY: Abdominal pain, COMPARISON: None. FINDINGS: Normal shaped gestational sac is identified and a retroflexed uterus. Gestation is in the fundal portion of the endometrial cavity. Yolk sac is seen. No hematoma or mass within the endometria l cavity. No myometrial mass identified. Heart rate is 174 BPM. [place]-rump length corresponds to a 9 week 0 day age. Calculated YAAKOV is 10/20/2018. Right ovary was not visualized. No right adnexal mass. Left ovary shows no suspicious finding. No left adnexal mass. No free fluid or blood in the [place]. IMPRESSION: Single 9 week 0 day IUP with an YAAKOV of 10/20/2018. Heart rate is normal. No mass, hematoma or other significant finding on this study.
[2018-03-17 20:26] VITALS: TEMP 98.2
[2018-03-17 20:27] VITALS: O2SAT 100
[2018-03-17 20:29] VITALS: BP 107/69
== END 2018-03-17 19:33 | disposition home or self-care (01) ==
LOC: ER 16:35
DX: O26.891 Other specified pregnancy related conditions, first trimester (principal); R10.13 Epigastric pain; Z3A.09 9 weeks gestation of pregnancy
CPT/HCPCS: 36415; 76813; 80048; 80076; 81003; 81015; 81025; 83690; 84702; 85025; 86900; 86901; 99284

== ENCOUNTER 2019-01-05 15:56 | Emergency (ER) | payer OTHER, SELFPAY ==
--- OUTSIDE RECORDS SUMMARY | 2019-01-05 15:57 | XMS REPORT ---
:1995 [facility] [place]os [address] [place] [id number] Care Team Providers Name Role Phone Unavailable Unavailable Unavailable Problems This patient has no known problems. Allergies, Adverse Reactions, Alerts This patient has no known allergies or adverse reactions. Medications This patient has no known medications.
--- OUTSIDE RECORDS SUMMARY | 2019-01-05 15:59 | XMS REPORT | Summary of Care ---
:1995 Author Organization [facility] Address [address] [place] [address] Care Team Providers Name Role Phone Rukhsana Lugo [facility] Primary Care Provider Karla Butterfield [facility] Insurance [employer] Reason for Visit Reason Comments Care Encounter Details Date Type Department Care Team Description 09/30/2018 [facility] Srinivasan Supervision of high risk in third trimester (Primary Dx); Visit HARSHA Rodriguez Abnormal maternal glucose tolerance, antepartum; [address] Chlamydia trachomatis infection of lower genitourinary sites; [place], [place] Os[place]do A Group B Streptococ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 ; [id number] [place], [place] headache in third trimester; [phone] [id number] Obesity complicating , childbirth, or puerperium, antepartum; [phone] Rubella non-immune status, antepartum Allergies No Known Allergiesdocumented as of this encounter (statuses as of 09/30/2018) Medications Medication Sig Dispensed Refills Start Date End Date Status proMETHazine 25 mg Take 1 tablet 30 tablet 0 06/26/2018 Active tabletIndications: by mouth every Nausea and 6 (six) hours vomiting during as needed for Nausea and Vomiting (N/V). acetaminophen-caff Take 1 capsule 30 capsule 0 08/26/2018 Active -butalbital by mouth every (ESGIC) per 6 (six) hours capsuleIndications as needed for : Pain. headache in third trimester proMETHazine 25 mg Take 1 tablet 30 tablet 0 03/05/2018 09/30/2018 Discontinued tabletIndications: by mouth every Nausea and 6 (six) hours vomiting during as needed for Nausea and Vomiting (N/V). acetaminophen-caff Take 1 capsule 30 capsule 1 06/26/2018 09/30/2018 Discontinued -butalbital by mouth every (ESGIC) per 6 (six) hours capsuleIndications as needed : (headache). headache in second trimester documented as of this encounter (statuses as of 09/30/2018) Active Problems Problem Noted Date Obesity (BMI 30-39.9) 09/28/2018 Decreased movements in third trimester 09/28/2018 Group B Streptococ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 09/25/2018 Pain of round ligament affecting , antepartum 07/06/2018 Vaginal yeast infection 04/29/2018 Headache in 04/20/2018 Nausea and vomiting during 03/23/2018 Chlamydia trachomatis infection of lower genitourinary sites 02/24/2018 Overview: Jhon negative repeat at 36 weeks Abnormal maternal glucose tolerance, antepartum 02/21/2018 Overview: Passed early 3hr, will need 3hr at 28 weeks -passed Influenza vaccination declined 02/20/2018 History of hypothyroidism 02/20/2018 Overview: No medication, consider labs second trimester Rubella non-immune status, antepartum 12/08/2013 Obesity complicating , childbirth, or puerperium, antepartum 2013 Overview: ICD10 Diagnosis Term Saddle 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 Utility Supervision of high-risk 12/07/2013 Estimated Date of Delivery Comments Yes 10/20/2018 Based on last menstrual period of 01/13/2018 documented as of this encounter (statuses as of 09/30/2018) Resolved Problems Problem Noted Date Resolved Date Nausea and vomiting in prior to 22 weeks gestation 12/07/201302/20 documented as of this encounter (statuses as of 09/30/2018) Immunizations Name Administration Dates Next Due TDAP (ADACEL) VACCINE 07/29/2018 Tdap 02/17/2009 documented as of this encounter Social History Tobacco Use Types Packs/Day Years Used Date Never Smoker Smokeless Tobacco: Never Used Alcohol Use Drinks/Week oz/Week Comments No Estimated Date of Delivery Comments Yes 10/20/2018 Based on last menstrual period of 01/13/2018 Sex Assigned at Date Recorded Not on file Job Start Date Occupation Industry Not on file Not on file Not on file Travel History Travel Start Travel End No recent travel history available. documented as of this encounter Last Filed Vital Signs Vital Sign Reading Time Taken Comments Blood Pressure 125/70 09/30/2018 10:59 AM CDT Pulse 82 09/30/2018 10:59 AM CDT Temperature 36.2 C (97.1 F) 09/30/2018 10:59 AM CDT Respiratory Rate 16 09/30/2018 10:59 AM CDT Oxygen Saturation - - Inhaled Oxygen Concentration - - Weight 97.6 kg (215 lb 2 oz) 09/30/2018 10:59 AM CDT Height 170.2 cm (5' 7") 09/30/2018 10:59 AM CDT Body Mass Index 33.69 09/30/2018 10:59 AM CDT documented in this encounter Progress Notes Jenn Srinivasan, [employer] - 09/30/2018 10:45 AM CDT Chief complaint: Chief Complaint Patient presents with Care HPI Gail Sandy Juárez is a 23 year old female is a @ 37w1d here for visit. Patient's last menstrual period was 2017. Estimated Date of Delivery: 10/20/18 Today she denies any complaints or concerns. She did go to on 09/28 for decreased FM, discharged with reactive NST and BPP 10/10. Pt reports normal movement now. She is taking PNV. She reports good FM. She denies any ctx/cramping, VB, LOF, MESSER , visual disturbance, vaginal discharge or dysuria. She denies any foreign travel. She also denies any physical, sexual or emotional abuse. Histories OB History Para Term AB Living 2 1 1 SAB TAB Ectopic Multiple Live Births # Outcome Date GA Lbr Bladimir/2nd Weight Sex Delivery Anes PTL Lv 2 Current 1 Term 2014 42w0d M NORMAL SPONT Past Medical History: Diagnosis Date Abnormal maternal glucose tolerance, antepartum 02/21/2018 Nausea and vomiting in prior to 22 weeks gestation 12/07/2013 Vaginal yeast infection 04/29/2018 Family History Problem Relation Age of Onset Hypertension Mother Asthma NoFHx Arthritis NoFHx defects NoFHx Breast Cancer NoFHx Colon Cancer NoFHx Ovarian Cancer NoFHx Cancer NoFHx Uterine Cancer NoFHx Depression NoFHx Diabetes NoFHx Genetic NoFHx Heart NoFHx High cholesterol NoFHx Neurological NoFHx Mental retardation NoFHx Osteoporosis NoFHx Psychiatry NoFHx Family Status Relation Name Status Mo (Not Specified) NoFHx (Not Specified) Past Surgical History: Procedure Laterality Date CHOLECYSTECTOMY TONSILLECTOMY 2014 Social History Socioeconomic History Marital status: Single Spouse name: Not on file Number of children: Not on file Years of education: Not on file Highest education level: Not on file Occupational History Not on file Social Needs Financial resource strain: Not on file Food insecurity: Worry: Not on file Inability: Not on file Transportation needs: Medical: Not on file Non-medical: Not on file Tobacco Use Smoking status: Never Smoker Smokeless tobacco: Never Used Substance and Sexual Activity Alcohol use: No Drug use: No Sexual activity: Yes Partners: Male control/protection: None Lifestyle Physical activity: Days per week: Not on file Minutes per session: Not on file Stress: Not on file Relationships Social connections: Talks on phone: Not on file Gets together: Not on file Attends jehovah's witness service: Not on file Active member of club or organization: Not on file Attends meetings of clubs or organizations: Not on file Relationship status: Not on file Intimate partner violence: Fear of current or ex partner: Not on file Emotionally abused: Not on file Physically abused: Not on file Forced sexual activity: Not on file Other Topics Concern Not on file Social History Narrative Not on file Social History Substance and Sexual Activity Sexual Activity Yes Partners: Male control/protection: None Labs No new labs and I have reviewed the patient's labs. Radiology No new radiology. Allergies Gail has No Known Allergies. Medications Gail has a current medication list which includes the following prescription(s ): [id number] and promethazine. Review of Systems Constitutional: Negative for appetite change, fatigue and fever. Eyes: Negative for visual disturbance. Respiratory: Negative. Cardiovascular: Negative for palpitations and leg swelling. Gastrointestinal: Negative for abdominal pain, constipation, diarrhea, nausea and vomiting. Genitourinary: Negative. Negative for dysuria, vaginal bleeding, vaginal discharge and pelvic pain. Musculoskeletal: Negative. Skin: Negative for rash. Neurological: Negative for dizziness, light-headedness and headaches. Psychiatric/Behavioral: Negative. BP 125/70 (BP Location: Right arm, Patient Position: Sitting, BP CUFF SIZE: Adult Medium) | Pulse 82 | Temp 36.2 C (97.1 F) (Oral) | Resp 16 | Ht 5 ' 7" (1.702 m) | Wt 215 lb 2 oz (97.6 kg) | LMP 01/13/2018 | BMI 33.69 kg/m Pregravid BMI: 32.6 Physical Exam Vitals reviewed. Constitutional: She is oriented to person, place, and time. She appears well- developed and well-nourished. See flowsheet Cardiovascular: No peripheral edema present. Pulmonary/Chest: Normal inspiratory effort. Abdominal: Abdomen is soft. Neuro/Psychiatric: She has a normal mood and affect. She is oriented to person, place, and time. Skin: Skin normal. Assessment/Plan 1. Supervision of high risk in third trimester 37w1d Labor precautions, FKC and PIH warnings reviewed. IOL scheduled for 10/13, instructions given - POCT URINALYSIS GLUCOSE & PROTEIN 2. Abnormal maternal glucose tolerance, antepartum Passed 3 hr GTT 3. Chlamydia trachomatis infection of lower genitourinary sites JHON negative 4. Group B Streptococ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 Intrapartum prophylaxis 5. headache in third trimester Patient reports resolved 6. Obesity complicating , childbirth, or puerperium, antepartum The patient is asked to make an attempt to improve diet and exercise patterns to aid in medical management of this problem. 7. Rubella non-immune status, antepartum Offer vaccine . Return to clinic in 1 weeks. at 37w1d This visit did not involve counseling and coordination that comprised more than 50% of the visit time. documented in this encounter Plan of Treatment Date Type Specialty Care Team Description 10/07/2018 Routine Visit [facility] Jenn Srinivasan FNP [address] [place] [address] [phone] Health Maintenance Due Date Last Done Comments MENINGOCOCCAL B VACCINES (1 06/18/2005 of 2 - Risk Bexsero 2-dose series) HPV VACCINES (1 - Female 06/18/2010 3-dose series) INFLUENZA VACCINE 10/18/2018 02/25/2018 CHLAMYDIA SCREENING 09/24/2019 09/23/2018, 03/23/2018, 03/05/2018, Additional history exists PAP SMEAR 02/20/2021 02/20/2018 DTaP,Tdap,and Td Vaccines (3 07/29/2028 07/29/2018, 02/17/2009 - Td) PNEUMOCOCCAL 0-64 YEARS Aged Out No longer eligible COMBINED SERIES based on patient's age to complete this topic documented as of this encounter Procedures Procedure Name Priority Date/Time Associated Diagnosis Comments POCT URINALYSIS Routine 09/30/2018 11:00 Supervision of high Results for this GLUCOSE & PROTEIN AM CDT risk in procedure are in third trimester the results section. documented in this encounter Results POCT URINALYSIS GLUCOSE & PROTEIN (09/30/2018 11:00 AM CDT) POCT U PROT trace Negative - Negative POCT U GLU neg Negative - Negative Specimen Urine - URINE, CLEAN CATCH documented in this encounter Visit Diagnoses Diagnosis Supervision of high risk in third trimester - Primary Unspecified high-risk Abnormal maternal glucose tolerance, antepartum Chlamydia trachomatis infection of lower genitourinary sites Group B Streptococ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 headache in third trimester Obesity complicating , childbirth, or puerperium, antepartum Obesity complicating , childbirth, or the puerperium, antepartum condition or complication Rubella non-immune status, antepartum Other specified complication, antepartum documented in this encounter Insurance Payer Benefit Plan / Subscriber ID Effective Dates Phone Address Type Group [facility] xxxxxxxxx 2018-Present Medicaid COMM PLAN - MANAGED MEDICAID documented as of this encounter Advance Directives Name Relationship Healthcare Agent Relationship Communication Keke Beatty Grandparent Primary healthcare agent
--- OUTSIDE RECORDS SUMMARY | 2019-01-05 16:00 | XMS REPORT | Summary of Care ---
:1995 Author Organization [facility] Address [address] [place] [address] Care Team Providers Name Role Phone Rukhsana Lugo [facility] Primary Care Provider Karla Butterfield [facility] Insurance Hmo Reason for Referral (Routine) Status Reason Specialty Diagnoses / Procedures Referred By Referred To Contact Contact New Request OB Satellites Diagnoses Rubella non-immune status, antepartum 38 weeks gestation of Nausea and vomiting, intractability of vomiting not specified, unspecified vomiting type Encounter for induction of labor Anemia, K[place], Obesity complicating , childbirth, or puerperium, antepartum Influenza vaccination declined History of hypothyroidism Abnormal maternal glucose tolerance, antepartum Chlamydia trachomatis infection of lower genitourinary sites MEGAN Thompson headache in third trimester Pain of round ligament affecting , antepartum Group B Streptococ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 Obesity (BMI 30-39.9) Decreased movements in third trimester, single or unspecified fetus [facility] Procedures DISCHARGE FOLLOW-UP: [facility] [address] [place] [phone] Reason for Visit Auth/Cert Status Reason Specialty Diagnoses / Referred By Contact Referred To Contact Procedures Obstetrics Diagnoses induction J7c [address] [place] [phone] Encounter Details Date Type Department Care Team Description 10/11/2018 - Hospital Encounter Mother Baby Unit Altagracia Murray 38 weeks gestation 10/13/2018 (JMarisol Ramesh MD [address] [place] [id number] [place] [id number] [phone] Allergies No Known Allergiesdocumented as of this encounter (statuses as of 10/13/2018) Medications Medication Sig Dispensed Refills Start Date End Date Status proMETHazine 25 mg Take 1 tablet by 30 tablet 0 06/26/2018 Active tabletIndications: mouth every 6 Nausea and vomiting (six) hours as during needed for Nausea and Vomiting (N/V). [id number] Take 1 capsule 30 capsule 0 08/26/2018 Active lbital (ESGIC) per by mouth every 6 capsuleIndications: (six) hours as headache in needed for Pain. third trimester vitamin w/FA Take 1 tablet by 100 tablet 3 10/13/2018 Active tabletIndications: mouth daily. Rubella non-immune status, antepartum, 38 weeks gestation of , Nausea and vomiting, intractability of vomiting not specified, unspecified vomiting type, Encounter for induction of labor, Anemia, , Obesity complicating , childbirth, or puerperium, antepartum, Influenza vaccination declined, History of hypothyroidism, Abnormal maternal glucose tolerance, antepartum, Chlamydia trachomatis infection of lower genitourinary sites, headache in third trimester, Pain of round ligament affecting , antepartum, Group B Streptococ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 , Obesity (BMI 30-39.9), Decreased movements in third trimester, single or unspecified fetus docusate calcium 240 mg Take 1 capsule 60 capsule 1 10/13/2018 Active capsuleIndications: by mouth once Rubella non-immune daily as needed status, antepartum, 38 for weeks gestation of Constipation. , Nausea and vomiting, intractability of vomiting not specified, unspecified vomiting type, Encounter for induction of labor, Anemia, , Obesity complicating , childbirth, or puerperium, antepartum, Influenza vaccination declined, History of hypothyroidism, Abnormal maternal glucose tolerance, antepartum, Chlamydia trachomatis infection of lower genitourinary sites, headache in third trimester, Pain of round ligament affecting , antepartum, Group B Streptococ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 , Obesity (BMI 30-39.9), Decreased movements in third trimester, single or unspecified fetus ferrous sulfate 325 mg Take 1 tablet by 60 tablet 2 10/13/2018 Active (65 mg iron) mouth 2 (two) tabletIndications: times daily. Rubella non-immune status, antepartum, 38 weeks gestation of , Nausea and vomiting, intractability of vomiting not specified, unspecified vomiting type, Encounter for induction of labor, Anemia, , Obesity complicating , childbirth, or puerperium, antepartum, Influenza vaccination declined, History of hypothyroidism, Abnormal maternal glucose tolerance, antepartum, Chlamydia trachomatis infection of lower genitourinary sites, headache in third trimester, Pain of round ligament affecting , antepartum, Group B Streptococ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 , Obesity (BMI 30-39.9), Decreased movements in third trimester, single or unspecified fetus ibuprofen 600 mg Take 1 tablet by 60 tablet 1 10/13/2018 Active tabletIndications: mouth every 6 Rubella non-immune (six) hours as status, antepartum, 38 needed for Pain weeks gestation of (scale 1-3) or , Nausea and Pain (scale 4-6) vomiting, (Pain). Take intractability of with food or vomiting not specified, milk. unspecified vomiting type, Encounter for induction of labor, Anemia, , Obesity complicating , childbirth, or puerperium, antepartum, Influenza vaccination declined, History of hypothyroidism, Abnormal maternal glucose tolerance, antepartum, Chlamydia trachomatis infection of lower genitourinary sites, headache in third trimester, Pain of round ligament affecting , antepartum, Group B Streptococ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 , Obesity (BMI 30-39.9), Decreased movements in third trimester, single or unspecified fetus documented as of this encounter (statuses as of 10/13/2018) Active Problems Problem Noted Date Anemia, 10/12/2018 38 weeks gestation of 10/11/2018 Nausea & vomiting 10/11/2018 Encounter for induction of labor 10/11/2018 Obesity (BMI 30-39.9) 09/28/2018 Decreased movements in third trimester 09/28/2018 Group B Streptococ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 09/25/2018 Pain of round ligament affecting , antepartum 07/06/2018 Headache in 04/20/2018 Chlamydia trachomatis infection of lower genitourinary sites [...] puerperium, antepartum 2013 Overview: ICD10 Diagnosis 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 documented as of this encounter (statuses as of 10/13/2018) Resolved Problems Problem Noted Date Resolved Date Vaginal yeast infection 04/29/2018 10/12/2018 Nausea and vomiting during 03/23/2018 10/12/2018 Nausea and vomiting in prior to 22 weeks gestation 12/07/201302/20 Supervision of high-risk 12/07/2013 10/12/2018 documented as of this encounter (statuses as of 10/13/2018) Immunizations Name Administration Dates Next Due MMR 10/13/2018 TDAP (ADACEL) VACCINE 07/29/2018 Tdap 02/17/2009 documented as of this encounter Social History Tobacco Use Types Packs/Day Years Used Date Never Smoker Smokeless Tobacco: Never Used Alcohol Use Drinks/Week oz/Week Comments No Comments Yes Sex Assigned at Date Recorded Not on file Job Start Date Occupation Industry Not on file Not on file Not on file Travel History Travel Start Travel End No recent travel history available. documented as of this encounter Last Filed Vital Signs Vital Sign Reading Time Taken Comments Blood Pressure 125/68 10/13/2018 8:00 AM CDT Pulse 69 10/13/2018 8:00 AM CDT Temperature 36.8 C (98.3 F) 10/13/2018 8:00 AM CDT Respiratory Rate 18 10/13/2018 8:00 AM CDT Oxygen Saturation 98% 10/13/2018 8:00 AM CDT Inhaled Oxygen Concentration - - Weight 96.5 kg (212 lb 11.2 oz) 10/11/2018 9:30 AM CDT Height 170.2 cm (5' 7") 10/11/2018 9:30 AM CDT Body Mass Index 33.31 10/11/2018 9:30 AM CDT documented in this encounter Discharge Instructions Nova Pritchard RN - 10/13/2018Multidisciplinary Discharge Instructions (may include diet, dressing changes, activity limits, written materials given to patient: DIET: Eat a well balanced diet; drink 6-8 glasses of fluids daily; eat fruits and green, leafy vegetables. DAILY ACTIVITIES: 1. As much as you feel able to do. Rest when you are tired. 2. Limitations: Specify; No heavy lifting other than your baby for 4 weeks if you had surgery. TREATMENT AT HOME 1. Use a well-fitting bra to prevent breast engorgement 2. Resume intercourse as instructed by your physician. 3. Do not use douches or tampons for four weeks. 4. To help prevent urinary tract infection; after each urination and bowel movement, wipe and dry from front to back and change ericka pad. 5. Follow discharge instructions regarding baby care. 6. Follow family planning instructions. IMMEDIATE TREATMENT - Call Clinic or Your Physician 1. Increase in pain and tenderness of uterus. 2. Increased vaginal bleeding (bright red blood which soaks 2 pads in 1 hour or pass large clots). 3. Foul smelling vaginal discharge. 4. Burning in the tube that empties the urine from the bladder. 5. Painful breast engorgement or cracked nipples. 6. Pain, discharges, or gaping incision. 7. Temperature greater than 38.0C or 100.4F 8. Pain and tenderness of calf or thigh muscles. 9. No bowel movements in 4 days. For Problems or Questions Call: OB Clinic Family Planning [phone] or Emergency: Go to the closest emergency room or call 911 AttachmentsThe following attachments cannot be sent through Care Everywhere.After a Vaginal (Yakut), After Giving: How to Feel Healthy (Yakut)documented in this encounter Progress Notes Donna Archuleta, MEGAN WHCNP - 10/12/2018 6:34 AM CDT PROGRESS NOTE Subjective: Patient is a 23 year old , S/P , post day 0. She complains of pain, cramps and contractions. Patient denies sob, vertigo, or palpitations. Patient reports voiding x 1 DTV x 1. Tolerating diet, passing flatus. Breast/bottlefeeding. No evidence of depression. Changes since previous day: delivered Objective: Vital Signs: BP: (80-138)/(37-85) Temp: [36.1 C (97 F)-37.4 C (99.3 F)] Temp source: Oral (10/12 0300) Pulse: [71-143] Resp: [18-19] SpO2: [99 %-100 %] Height: [170.2 cm (5' 7")] Weight: [96.5 kg (212 lb 11.2 oz)] BMI (calculated): [33.31] Physical Exam: No apparent distress Happy with new baby. Affect appropriate Heart: regular rate and rhythm. S1S1 present. No murmur/ rubs/gallops Lungs: good inspiratory effort to inspections, lungs clear to auscultation bilaterally. No wheeze/stridor/ crackles bilaterally. Breast: soft Abdomen: soft non-tender. Fundus: firm at umbilicus- Perineum: intact, no edema, hematoma or abcess Lochia: scant rubra, no clots Extremities: no clubbing, cyanosis, or edema bilaterally. No calf tenderness/ NEG Eleanor's Contraception: OCP's/condoms Current Medications: Current Facility-Administered Medications Medication Dose Route Frequency Last Rate Last Dose acetaminophen (TYLENOL) tablet 650 mg 650 mg Oral Q6HPRN benzocaine-menthol (DERMOPLAST) 20-0.5 % topical spray Topical PRN diphenhydrAMINE (BENADRYL) 25 mg in NaCl 0.9% (NS) piggyback 25 mg IV Piggyback Q6HPRN diphenhydrAMINE (BENADRYL) tablet 25 mg 25 mg Oral Q6HPRN docusate calcium (SURFAK) capsule 240 mg 240 mg Oral QDAILYPRN human papillomav vac,9-katherine(PF) (GARDASIL 9 (PF)) vial 0.5 mL 0.5 mL Intramuscular ONCE-PRIOR TODISCHARGE ibuprofen (IBU) tablet 600 mg 600 mg Oral Q6HPRN magnesium hydroxide (MILK OF MAGNESIA) 400 mg/5 mL suspension 30 mL 30 mL Oral QDAILYPRN ondansetron (ZOFRAN (PF)) injection 4 mg 4 mg Slow IV Push Q8HPRN vitamin w/FA (PRENATABS RX) tablet 1 tablet 1 tablet Oral DAILY simethicone (GAS RELIEF) chewable tablet 160 mg 160 mg Oral PC+HSPRN Labs: CBC BMP MAGNESIUM WBC x10^3 (/uL) Date Value 12/07/2013 11.4 (H) WBC (10*3/L) Date Value 09/23/2018 11.45 (H) No results found for: NA No results found for: MG PLT x10^3 (/uL) Date Value 12/07/2013 361 (H) PLT (10*3/L) Date Value 09/23/2018 261 No results found for: K HGB Date Value 09/23/2018 10.7 g/dL (L) 12/07/2013 12.6 G/DL No results found for: CA HCT (%) Date Value 09/23/2018 34.1 (L) 12/07/2013 37.8 No results found for: CL TYPE & RH No results found for: BUN ABO & RH (no units) Date Value 10/11/2018 B POSITIVE No results found for: CREAT Type & Screen Rubella Varicella ABO & RH (no units) Date Value 10/11/2018 B POSITIVE RUBELLA (no units) Date Value 12/07/2013 Negative Rubella screen IgG (no units) Date Value 02/20/2018 Negative VZV IgG (no units) Date Value 12/07/2013 Negative No results found for: TSABINT Hep B HIV Syphilis HBsAg (no units) Date Value 12/07/2013 NEGATIVE HIV 1/2 Ab (no units) Date Value 12/07/2013 NEGATIVE SYPH IgG/IgM (no units) Date Value 12/07/2013 Non Reac Group B Strep Chlamydia No results found for: CGBS Chlamydia Amplified Assay (no units) Date Value 12/07/2013 NEGATIVE C. trachomatis Nucleic Acid (no units) Date Value 09/23/2018 Negative Studies: Assessment/Plan: Active Problems: Rubella non-immune status, antepartum (12/08/2013) POA: Yes Assessment: Pt aware she needs the MMR vaccine for rubella status prior to d/c home. Pt to avoid x 3 months post vaccine. Plan: 38 weeks gestation of (10/11/2018) POA: Yes Assessment: Plan: Nausea & vomiting (10/11/2018) POA: Yes Assessment: Plan: Encounter for induction of labor (10/11/2018) POA: Yes Assessment: Plan: Anemia, (10/12/2018) POA: Unknown Assessment: Secondary to & delivery. Estimated blood loss 250 ml at delivery. Pt without sob, vertigo or palpitations. Lochia scant, good hemostasis maintained, & vital signs stable. Plan: RX Ferrous sulfate 325mg 1 po daily , take with Vit C. Increase iron rich foods, increase hydration. bleed precautions reviewed. ASSESSMENT 23 y/o S/p on 10/12/2018 at 1256a complicated by nothing noted . Patient is recovering well: hemodynamically stable, good UOP, pain well-controlled, vitals within normal limits. PLAN 1. Review: - Admitted for: Decreased FM 2. care: - Diet: Regular diet - Fluid: Encourage oral intake - Activity: Encourage ambulation - Pain: Schlater and Ibuprofen - DVT prophylaxis: Encourage ambulation 4. Discharge Planning: - Contraception: Nexplanon - Vaccines: Pt aware she needs the MMR vaccine for rubella status prior to d/c home. Pt to avoid x 3 months post vaccine. - Follow Up: follow-up in 3 weeks at clinic - Anticipate discharge tomorrow PPD 1 is stable 5. Baby's Status: 9/9 MEGAN FuP documented in this encounter Plan of Treatment Date Type Specialty Care Team Description 11/02/2018 Routine Visit OB Satellites Rukhsana Lugo, JUSTINEP [address], [place] [id number] Name Type Priority Associated Order Schedule Diagnoses Delayed Administration IMMUNIZATION/ Routine ONCE for 1 until Day of Discharge INJECTION Occurrences starting MMR 10/12/2018 until (MEASLES/MUMPS/RUBELLA) 10/12/2018 VACCINE Standing Order Health Maintenance Due Date Last Done Comments MENINGOCOCCAL B VACCINES (1 06/18/2005 of 2 - Risk Bexsero 2-dose series) HPV VACCINES (1 - Female 06/18/2010 3-dose series) INFLUENZA VACCINE (#1) 2018 CHLAMYDIA SCREENING 09/24/2019 09/23/2018, 03/23/2018, 03/05/2018, Additional history exists PAP SMEAR 02/20/2021 02/20/2018 DTaP,Tdap,and Td Vaccines (3 07/29/2028 07/29/2018, 02/17/2009 - Td) PNEUMOCOCCAL 0-64 YEARS Aged Out No longer eligible COMBINED SERIES based on patient's age to complete this topic documented as of this encounter Procedures Procedure Name Priority Date/Time Associated Comments Diagnosis CBC WITH DIFFERENTIAL Routine 10/13/2018 4:05 Results for this AM CDT procedure are in the results section. CBC WITH DIFF Routine 10/13/2018 4:05 Results for this AM CDT procedure are in the results section. VENOUS CORD GAS TERI 10/12/2018 12:36 Results for this AM CDT procedure are in the results section. ARTERIAL CORD GAS TERI 10/12/2018 12:36 Results for this AM CDT procedure are in the results section. POCT GLUCOSE Routine 10/11/2018 9:07 Results for this (AUTOMATED) PM CDT procedure are in the results section. GALV ONLY - SYPHILIS TERI 10/11/2018 11:54 Results for this IGG/IGM AM CDT procedure are in the results section. TYPE AND SCREEN TERI 10/11/2018 11:54 Results for this AM CDT procedure are in the results section. HEPATITIS B SURFACE TERI 10/11/2018 11:54 Results for this ANTIGEN AM CDT procedure are in the results section. CONSENT/REFUSAL FOR Routine 09/28/2018 12:01 DIAGNOSIS AND AM CDT TREATMENT documented in this encounter Results CBC WITH DIFFERENTIAL (10/13/2018 4:05 AM CDT) WBC 9.95 4.30 - 11.10 [facility] 10*3/L SERVICES RBC 3.47 (L) 3.93 - 5.25 [facility] 10*6/L SERVICES HGB 9.4 (L) 11.6 - 15.0 [facility] g/dL SERVICES HCT 31.1 (L) 35.7 - 45.2 % [facility] SERVICES MCV 89.6 80.6 - 95.5 fL [facility] MCH 27.1 25.9 - 32.8 pg [facility] MCHC 30.2 (L) 31.6 - 35.1 [facility] g/dL SERVICES RDW-SD 46.6 39.0 - 49.9 fL [facility] RDW-CV 14.5 12.0 - 15.5 % [facility] PLT 241 166 - 358 [facility] 10*3/L SERVICES MPV 9.9 9.5 - 12.9 fL [facility] NRBC/100 WBC 0.0 0.0 - 10.0 /100 [facility] WBCs SERVICES NRBC x10^3 <0.01 10*3/L [facility] GRAN MAT (NEUT) % 68.1 % [facility] IMM GRAN % 0.90 % [facility] LYMPH % 22.0 % [facility] MONO % 7.0 % [facility] EOS % 1.7 % [facility] BASO % 0.3 % [facility] GRAN MAT x10^3(ANC) 6.77 1.88 - 7.09 [facility] 10*3/uL SERVICES IMM GRAN x10^3 0.09 (H) 0.00 - 0.06 [facility] 10*3/uL SERVICES LYMPH x10^3 2.19 1.32 - 3.29 [facility] 10*3/uL SERVICES MONO x10^3 0.70 0.33 - 0.92 [facility] 10*3/uL SERVICES EOS x10^3 0.17 0.03 - 0.39 [facility] 10*3/uL SERVICES BASO x10^3 0.03 0.01 - 0.07 [facility] 10*3/uL SERVICES Specimen Blood - ARM, LEFT Performing Organization Address City/State/Zipcode Phone Number [facility] CLIA: [id number], [address] [place] [address] [facility] ARTERIAL CORD GAS (10/12/2018 12:36 AM CDT) BASE EXCESS, CORD -0.4 mEq/L [facility] AC PH, CORD (BEAKER) 7.37 7.18 - 7.38 [facility] PC02, CORD 45 32 - 66 mmHg [facility] PO2, CORD 38 (H) 10 - 30 mmHg [facility] BICARBONATE, CORD 25 17 - 27 mEq/L [facility] Specimen Blood - CORD Performing Organization Address City/State/Zipcode Phone Number [facility] CLIA: [id number], [address] [place] [address] [phone] [facility] VENOUS CORD GAS (10/12/2018 12:36 AM CDT) VENOUS BASE EXCESS, -1.4 mEq/L [facility] CORD SERVICES VENOUS PH, CORD 7.38 7.25 - 7.45 [facility] VENOUS PC02, CORD 40 27 - 49 mmHg [facility] VENOUS PO2, CORD 26 17 - 41 mmHg [facility] VENOUS BICARBONATE, 24 12 - 29 mEq/L [facility] CORD SERVICES Specimen Blood - CORD Performing Organization Address [facility] [place] Phone Number [facility] CLIA: [id number], [address] [place] [address] [facility] POCT GLUCOSE (AUTOMATED) (10/11/2018 9:07 PM CDT) Pathologist [facility] POCT GLU 99 70 - 110 mg/dL [facility] Specimen Blood Performing Organization Address City/[facility] Phone Number [facility] CLIA: [id number], [address] [place] [address] Malcolm Medina Type and Screen - ONCE TERI (10/11/2018 11:54 AM CDT) ABO & RH B POSITIVE LAB Comment: Performed at [facility] Laboratory Services - [facility] Blood [address] [address] Toll Free: [phone] CLIA No. [id number] IAT Negative LAB Comment: Performed at [facility] Laboratory Services - [facility] Blood [address] [address] Toll Free: [phone] CLIA No. [id number] Specimen Blood - VENOUS Performing Organization Address City/[facility]/Zipcode Phone Number [facility] LAB GALV ONLY - SYPHILIS IGG/IGM (10/11/2018 11:54 AM CDT) Syphilis IgG/IgM Non-reactive Non-reactive [facility] Specimen Blood - VENOUS Narrative Performed At Non-reactive - No serologic evidence of T. pallidum [facility] infection. Cannot exclude incubating or early syphilis. Submit a second specimen in 2-4 weeks if syphilis is clinically suspected. Equivocal - Further testing to follow. Reactive - Further testing to follow. Performing Organization Address City/[facility]/Zipcode Phone Number [facility] CLIA: [id number], [address] [place] [address] [phone] [facility] Hepatitis B Surface Antigen (10/11/2018 11:54 AM CDT) HBsAg HEPATITIS B Negative [facility] SURFACE ANTIGEN SERVICES NEGATIVE HBsAg 0.05 [facility] Semi-Quantitative SERVICES Specimen Blood - HAND, RIGHT Performing Organization Address City/[facility] Phone Number [facility] CLIA: [id number], [address] [place] [phone] [facility] documented in this encounter Visit Diagnoses Diagnosis Rubella non-immune status, antepartum - Primary Other specified complication, antepartum 38 weeks gestation of state, incidental Nausea and vomiting, intractability of vomiting not specified, unspecified vomiting type Encounter for induction of labor Anemia, Obesity complicating , childbirth, or puerperium, antepartum Obesity complicating , childbirth, or the puerperium, antepartum condition or complication Influenza vaccination declined History of hypothyroidism Personal history of other endocrine, metabolic, and immunity disorders Abnormal maternal glucose tolerance, antepartum Chlamydia trachomatis infection of lower genitourinary sites headache in third trimester Pain of round ligament affecting , antepartum Group B Streptococ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 Obesity (BMI 30-39.9) Obesity, unspecified Decreased movements in third trimester, single or unspecified fetus documented in this encounter Administered Medications Medication Order MAR Action Action Date Dose Rate Site acetaminophen (TYLENOL) tablet Given 10/13/2018 6:26 AM CDT 650 mg 650 mg 650 mg, Oral, Q6HPRN, Starting 10/12/18 at 0532, Until Discontinued, Routine, Pain (scale 1-3) Given 10/12/2018 8:02 PM CDT 650 mg benzocaine-menthol (DERMOPLAST) 20-0.5 % topical Given 10/12/2018 8:02 PM CDT spray Topical, PRN, Starting Fri10/12/18 at 0532, Until Discontinued, Routine, Perineum discomfort docusate calcium (SURFAK) capsule 240 mg Given 10/12/2018 7:38 AM CDT 240 mg 240 mg, Oral, QDAILYPRN, Starting Fri10/12/18 at 0532, Until Discontinued, Routine, Constipation ibuprofen (IBU) tablet 600 mg Given 10/12/2018 11:55 PM CDT 600 mg 600 mg, Oral, Q6HPRN, Starting Fri10/12/18 at 0532, Until Discontinued, Routine, Pain (scale 4-6) Given 10/12/2018 7:39 AM CDT 600 mg vitamin w/FA (PRENATABS RX) Given 10/13/2018 8:14 AM CDT 1 tablet tablet 1 tablet 1 tablet, Oral, DAILY, First dose on Fri10/12/18 at 0900, Until Discontinued, Routine Given 10/12/2018 7:38 AM CDT 1 tablet simethicone (GAS RELIEF) chewable tablet 160 Given 10/13/2018 10:29 AM CDT 160 mg mg 160 mg, Oral, PC+HSPRN, Starting Fri10/12/18 at 0532, Until Discontinued, Routine, Gas Medication Order MAR Action Action Date Dose Rate Site LR 1000 mL + oxytocin Rate Change 10/11/2018 11:00 PM 12 36 mL/hr 20 units IV Solution CDT radha-units/min 2 radha-units/min (6 mL/hr), at 6 mL/hr, IV Infusion, TITRATE, Starting Fri10/11/18 at 1244, Until Fri10/12/18 at 0532, TERI, CTX q2m Rate Change 10/11/2018 10:20 PM CDT 10 radha-units/min 30 mL/hr Rate Change 10/11/2018 10:00 PM CDT 8 radha-units/min 24 mL/hr LR 1000 mL + oxytocin 20 units IV Given 10/12/2018 12:27 AM CDT 999 mL/hr Solution at 999 mL/hr, IV Infusion, ONCE, 1 dose, Fri10/12/18 at 0145, Routine LR 1000 mL + oxytocin 20 units IV Given 10/12/2018 5:39 AM CDT 125 mL/hr Solution at 125 mL/hr, IV Infusion, ONCE, 1 dose, 10/12/18 at 0545, Routine measles, mumps + rubella vac Given 10/13/2018 12:27 PM CDT 0.5 mL Right Deltoid-IM (M-M-R II) 1,000-12,500 TCID50/0.5 mL injection 0.5 mL 0.5 mL, Subcutaneous, ONCE, 1 dose, [facility] 10/13/18 at 0800, Routine ondansetron (ZOFRAN (PF)) injection 4 mg Given 10/12/2018 2:21 AM CDT 4 mg 4 mg, Slow IV Push, ONCE, 1 dose, 10/12/18 at 0315, Routine penicillin g pot in dextrose Given 10/11/2018 9:04 PM CDT 3 Million Units 50 mL/hr 3 million unit/50 mL RTU iv piggyback 3 Million Units 3 Million Units, IV Piggyback, Q4H ABX, First dose on 10/11/18 at 1600, Until Discontinued, 50 mL, Reason for Anti-Infective: Documented Infection, Documented Infection Site: Pelvic, Duration of Therapy: Other (see Comments) Given 10/11/2018 5:09 PM CDT 3 Million Units 50 mL/hr penicillin g potassium 5 Million Given 10/11/2018 1:09 PM CDT 5 Million Units Units in NaCl 0.9% (NS) 100 mL MINI-BAG 5 Million Units, IV Piggyback, ONCE, 1 dose, Crum 10/11/18 at 1200, 100 mL, Reason for Anti-Infective: Documented Infection, Documented Infection Site: Pelvic, Duration of Therapy: Other (see Comments) sodium citrate-citric acid (BICITRA) 500-334 Given 10/11/2018 4:43 PM CDT 30 mL mg/5 mL solution 30 mL 30 mL, Oral, PRE-PROCEDURE ONCE, 1 dose, Starting 10/11/18 at 1625, Until 10/11/18 at 1643, Routine, Surgery/Procedure documented in this encounter Insurance Payer Benefit Plan / Subscriber ID Effective Dates Phone Address Type Group [facility] xxxxxxxxx 2018-Present Medicaid COMM PLAN - MANAGED MEDICAID documented as of this encounter Advance Directives Name Relationship Healthcare Agent Relationship Communication Keke Beatty Grandparent Primary healthcare agent
--- OUTSIDE RECORDS SUMMARY | 2019-01-05 16:00 | XMS REPORT | Summary of Care ---
:1995 Author Organization [facility] Address [address] [place] [address] Care Team Providers Name Role Phone Rukhsana Lugo [facility] Primary Care Provider Karla Butterfield [facility] Insurance Hmo Reason for Visit Reason Comments Care Encounter Details Date Type Department Care Team Description 10/07/2018 [facility] Srinivasan, [employer] MANAGER [address] [place], [place] [id number] Supervision of high risk in third trimester ( Primary Dx); Visit Rukhsana Lance, [facility] [address] [place], [place] [id number] Obesity complicating , childbirth, or puerperium, antepartum; [address] Rubella non-immune status, antepartum; [place], [place] Group B Streptococ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 [phone] Allergies No Known Allergiesdocumented as of this encounter (statuses as of 10/07/2018) Medications Medication Sig Dispensed Refills Start Date End Date Status proMETHazine 25 mg Take 1 tablet by 30 tablet 0 06/26/2018 Active tabletIndications: mouth every 6 Nausea and vomiting (six) hours as during needed for Nausea and Vomiting (N/V). [id number] Take 1 capsule by 30 capsule 0 08/26/2018 Active albital (ESGIC) per mouth every 6 capsuleIndications: (six) hours as headache in needed for Pain. 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 Supervision of high-risk 12/07/2013 Estimated Date of Delivery Comments Yes 10/20/2018 Based on last menstrual period of 01/13/2018 documented as of this encounter (statuses as of 10/07/2018) Resolved Problems Problem Noted Date Resolved Date Nausea and vomiting in prior to 22 weeks gestation 12/07/201302/20 documented as of this encounter (statuses as of 10/07/2018) Immunizations Name Administration Dates Next Due TDAP [...] Sign Reading Time Taken Comments Blood Pressure 129/71 10/07/2018 11:39 AM CDT Pulse 86 10/07/2018 11:39 AM CDT Temperature 36.7 C (98 F) 10/07/2018 11:39 AM CDT Respiratory Rate 16 10/07/2018 11:39 AM CDT Oxygen Saturation - - Inhaled Oxygen Concentration - - Weight 96.7 kg (213 lb 2 oz) 10/07/2018 11:39 AM CDT Height 170.2 cm (5' 7") 10/07/2018 11:39 AM CDT Body Mass Index 33.38 10/07/2018 11:39 AM CDT documented in this encounter Progress Notes Rukhsana Lugo, WHCNP - 10/07/2018 10:45 AM CDT Chief complaint: Chief Complaint Patient presents with Care HPI CC: Follow Up Visit Gail Juárez is a 23 year old, , /White female. Patient's last menstrual period was 01/13/2018. She is 38w1d with an intrauterine . Her estimated date of delivery is 10/20/2018, by Last Menstrual Period. She has no complaints today. She reports +FM and denies contractions, LOF and bleeding today. Histories OB History Para Term AB Living 2 1 1 SAB TAB Ectopic Multiple Live Births # Outcome Date GA Lbr Bladimir/2nd Weight Sex Delivery Anes PTL Lv 2 Current 1 Term 2015 42w0d M NORMAL SPONT Past Medical History: [...] file Gets together: Not on file Attends baptism service: Not on file Active member of [...] control/protection: None Labs No new labs and Routine Visit on 09/30/2018 Component Date Value POCT U PROT 09/30/2018 trace POCT U GLU 09/30/2018 neg Routine Visit on 09/23/2018 Component Date Value C. trachomatis Nucleic A* 09/23/2018 Negative N. gonorrhoeae Nucleic A* 09/23/2018 Negative Group B Streptococcus by* 09/23/2018 Positive* TSH 09/23/2018 2.37 WBC 09/23/2018 11.45* RBC 09/23/2018 3.87* HGB 09/23/2018 10.7* HCT 09/23/2018 34.1* MCV 09/23/2018 88.1 MCH 09/23/2018 27.6 MCHC 09/23/2018 31.4* RDW-SD 09/23/2018 45.1 RDW-CV 09/23/2018 14.2 PLT 09/23/2018 261 MPV 09/23/2018 10.0 NRBC/100 WBC 09/23/2018 0.0 NRBC x10^3 09/23/2018 <0.01 GRAN MAT (NEUT) % 09/23/2018 80.5 IMM GRAN % 09/23/2018 0.70 LYMPH % 09/23/2018 12.2 MONO % 09/23/2018 5.7 EOS % 09/23/2018 0.7 BASO % 09/23/2018 0.2 GRAN MAT x10^3(ANC) 09/23/2018 9.22* IMM GRAN x10^3 09/23/2018 0.08* LYMPH x10^3 09/23/2018 1.40 MONO x10^3 09/23/2018 0.65 EOS x10^3 09/23/2018 0.08 BASO x10^3 09/23/2018 <0.03 POCT PH U 09/23/2018 . POCT U LEUK EST 09/23/2018 . POCT U NIT 09/23/2018 . POCT U PROT 09/23/2018 Trace POCT U GLU 09/23/2018 Neg POCT U KETONE 09/23/2018 . POCT U BLD 09/23/2018 . Routine Visit on 09/09/2018 Component Date Value POCT PH U 09/09/2018 . POCT U LEUK EST 09/09/2018 . POCT U NIT 09/09/2018 . POCT U PROT 09/09/2018 Trace POCT U GLU 09/09/2018 Neg POCT U KETONE 09/09/2018 . POCT U BLD 09/09/2018 .. Routine Visit on 08/12/2018 Component Date Value POCT PH U 08/12/2018 . POCT U LEUK EST 08/12/2018 . POCT U NIT 08/12/2018 .. POCT U PROT 08/12/2018 Trace POCT U GLU 08/12/2018 Neg POCT U KETONE 08/12/2018 . POCT U BLD 08/12/2018 . Routine Visit on 07/29/2018 Component Date Value WBC 07/29/2018 9.74 RBC 07/29/2018 3.69* HGB 07/29/2018 10.8* HCT 07/29/2018 34.0* MCV 07/29/2018 92.1 MCH 07/29/2018 29.3 MCHC 07/29/2018 31.8 RDW-SD 07/29/2018 45.1 RDW-CV 07/29/2018 13.4 PLT 07/29/2018 301 MPV 07/29/2018 9.7 NRBC/100 WBC 07/29/2018 0.0 NRBC x10^3 07/29/2018 <0.01 GRAN MAT (NEUT) % 07/29/2018 78.4 IMM GRAN % 07/29/2018 0.50 LYMPH % 07/29/2018 15.0 MONO % 07/29/2018 5.1 EOS % 07/29/2018 0.7 BASO % 07/29/2018 0.3 GRAN MAT x10^3(ANC) 07/29/2018 7.63* IMM GRAN x10^3 07/29/2018 0.05 LYMPH x10^3 07/29/2018 1.46 MONO x10^3 07/29/2018 0.50 EOS x10^3 07/29/2018 0.07 BASO x10^3 07/29/2018 0.03 GLU FASTNG 07/29/2018 78 GLUC 1 HR 07/29/2018 145 GLUC 2 HR 07/29/2018 116 GLUC 3 HR 07/29/2018 97 POCT U PROT 07/29/2018 neg POCT U GLU 07/29/2018 neg HIV 1/2 Ag-Ab with Reflex 07/29/2018 Negative HIV Semi-quantitative 07/29/2018 0.07 Syphilis IgG/IgM 07/29/2018 Non-reactive Radiology No new radiology. Allergies Gail has No Known Allergies. Medications Gail has a current medication list which includes the following prescription(s ): jesbdylbmdafq-tutx-mxpymgibur and promethazine. Review of Systems Constitutional: Negative. HENT: Negative. Eyes: Negative. Respiratory: Negative. Breasts: Negative. Cardiovascular: Negative. Gastrointestinal: Negative. Genitourinary: Negative. Musculoskeletal: Negative. Skin: Negative. Neurological: Negative. Psychiatric/Behavioral: Negative. Endocrine: Endocrine negative BP 129/71 (BP Location: Right arm, Patient Position: Sitting, BP CUFF SIZE: Adult Medium) | Pulse 86 | Temp 36.7 C (98 F) (Oral) | Resp 16 | Ht 5' 7 " (1.702 m) | Wt 213 lb 2 oz (96.7 kg) | LMP 01/13/2018 | BMI 33.38 kg/m Pregravid BMI: 32.6 Physical Exam PHYSICAL: General Exam: Neurological: Normal Abdomen: Normal gravid Extremities: Normal Pelvic Exam: Uterus: 40 Weeks Assessment/Plan Return to clinic in 1 weeks. Denies zika virus risk, signs and symptoms such as fever,rash,joint pain, conjunctivitis (red eyes),muscle pain, headaches; outside [place] travel to areas affected by zika, and FOB exposure to zika. Educated on use of mosquito repellent. Supervision of high risk in third trimester (primary encounter diagnosis) Comment: routine Plan: POCT URINALYSIS W/O SPECIFIC GRAVITY Obesity complicating , childbirth, or puerperium, antepartum Comment: see bmi Plan: limit weight gain and sensible diet. Rubella non-immune status, antepartum Comment: no mgmt today Plan: address pp Group B Streptococ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 Comment: no mgmt today Plan: address pp This visit did not involve counseling and coordination that comprised more than 50% of the visit time. MARIBETH Wagner 10/07/2018 12:56 PM documented in this encounter Plan of Treatment Health Maintenance Due Date Last Done Comments [...] Priority Date/Time Associated Diagnosis Comments POCT URINALYSIS W/O Routine 10/07/2018 11:43 Supervision of high Results for this SPECIFIC GRAVITY AM CDT risk in procedure are in third trimester the results section. documented in this encounter Results POCT URINALYSIS W/O SPECIFIC GRAVITY (10/07/2018 11:43 AM CDT) POCT PH U . 5 - 8 mg/dl POCT U LEUK EST . Negative - Negative POCT U NIT . Negative - Negative POCT U PROT Trace Negative - Negative POCT U GLU Neg Negative - Negative POCT U KETONE . Negative - Negative POCT U BLD . Negative - Negative Specimen Urine - URINE, CLEAN CATCH documented in this encounter Visit Diagnoses Diagnosis Supervision of high risk in third trimester - Primary Unspecified high-risk Obesity complicating , childbirth, or puerperium, antepartum Obesity complicating , childbirth, or the puerperium, antepartum condition or complication Rubella non-immune status, antepartum Other specified complication, antepartum Group B Streptococ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 documented in this encounter Insurance Payer Benefit Plan / Subscriber ID Effective Dates Phone Address Type Group [facility] xxxxxxxxx 2018-Present Medicaid COMM PLAN - MANAGED MEDICAID documented as of this encounter Advance Directives Name Relationship Healthcare Agent Relationship Communication Kekemarilin Beatty Grandparent Primary healthcare agent
--- OUTSIDE RECORDS SUMMARY | 2019-01-05 16:01 | XMS REPORT | Summary of Care ---
:1995 Author Organization [facility] Address [address] [place] [id number] Care Team Providers Name Role Phone Rukhsana Lugo [facility] Primary Care Provider Karla Butterfield [facility] Insurance [employer] Reason for Visit Reason Comments Care 3WK (Routine) Status Reason Specialty Diagnoses / Procedures [...] in third trimester, single or unspecified fetus [facility] Procedures DISCHARGE FOLLOW-UP: [facility] [address] [place] [address] Encounter Details Date Type Department Care Team Description 11/02/[address] [facility]- Edsonsipatricia, Routine Visit MARIBETH Huerta follow-up (Primary [address]) [facility] [id number] [facility] [phone] [place] [address] Allergies No Known Allergiesdocumented as of this encounter (statuses as of 11/02/2018) Medications Medication Sig Dispensed Refills Start Date End Date Status proMETHazine 25 mg Take 1 tablet by 30 tablet 0 06/26/2018 Active tabletIndications: mouth every 6 Nausea and vomiting (six) hours as during needed for Nausea and Vomiting (N/V). blqwhnqozqtab-llbf-agal Take 1 capsule 30 capsule 0 08/26/2018 [...] as of this encounter (statuses as of 11/02/2018) Active Problems Problem Noted Date Routine follow-up 11/02/2018 Anemia, 10/12/2018 Obesity (BMI 30-39.9) 09/28/2018 History of hypothyroidism 02/20/2018 Overview: No medication, consider labs second trimester Rubella non-immune status, antepartum 12/08/2013 documented as of this encounter (statuses as of 11/02/2018) Resolved Problems Problem Noted Date Resolved Date 38 weeks gestation of 10/11/2018 11/02/2018 Nausea & vomiting 10/11/2018 11/02/2018 Encounter for induction of labor 10/11/2018 11/02/2018 Decreased movements in third trimester 09/28/2018 11/02/2018 Group B Streptococ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 09/25/2018 11/02/2018 Pain of round ligament affecting , antepartum 07/06/2018 11/02/2018 Vaginal yeast infection 04/29/2018 10/12/2018 Headache in 04/20/2018 11/02/2018 Nausea and vomiting during 03/23/2018 10/12/2018 Chlamydia trachomatis infection of lower genitourinary sites 02/24/201811/02 Overview: Jhon negative repeat at 36 weeks Abnormal maternal glucose tolerance, antepartum 02/21/2018 11/02/2018 Overview: Passed early 3hr, will need 3hr at 28 weeks -passed Influenza vaccination declined 02/20/2018 11/02/2018 Nausea and vomiting in prior to 22 weeks gestation 12/07/201302/20 Obesity complicating , childbirth, or puerperium, 12/07/20132018 antepartum Overview: ICD10 Diagnosis Term Title Insurance Examiner Utility Supervision of high-risk 12/07/2013 10/12/2018 documented as of this encounter (statuses as of 11/02/2018) Immunizations Name Administration Dates Next Due MMR 10/13/2018 TDAP (ADACEL) VACCINE 07/29/2018 Tdap 02/17/2009 documented as of this encounter Social History Tobacco Use Types Packs/Day Years Used Date Never Smoker Smokeless Tobacco: Never Used Alcohol Use Drinks/Week oz/Week Comments No Sex Assigned at Date Recorded Not on file Job Start Date Occupation Industry Not on file Not on file Not on file Travel History Travel Start Travel End No recent travel history available. documented as of this encounter Last Filed Vital Signs Vital Sign Reading Time Taken Comments Blood Pressure 113/67 11/02/2018 9:26 AM CDT Pulse 50 11/02/2018 9:26 AM CDT Temperature 36.6 C (97.9 F) 11/02/2018 9:26 AM CDT Respiratory Rate 16 11/02/2018 9:26 AM CDT Oxygen Saturation - - Inhaled Oxygen Concentration - - Weight 86.8 kg (191 lb 5 oz) 11/02/2018 9:26 AM CDT Height 170.2 cm (5' 7") 11/02/2018 9:26 AM CDT Body Mass Index 29.96 11/02/2018 9:26 AM CDT documented in this encounter Patient Instructions Patient InstructionsNasir Morocho RN - 11/02/2018 9:30 AM CDT How to Bottle-Feed Newborns need nutrition and plenty of loving2 things you can supply while bottle-feeding. Both breastmilk and formula can be given to your baby in a bottle. Be sure to place the nipple on the tongue and well into your baby's mouth. Safety tip:Never heat breastmilk or formula in a microwave. This can result in uneven heating. Thehot formulamight burn your baby's mouth. Instead, warm the bottle by putting it in a bowl of warm (not hot) water. Using hot water to heat formula or breastmilk can burn your baby's mouth or throat. Test the temperature of theformulaby dripping a few dropson your wrist. Make sure it is a warmtemperature before giving it to your baby. Bottle care No matter if you use breastmilk or formula, the bottles, nipples, and tools you use to get the formula ready must be clean. Below are suggestions for bottle care, but talk with your healthcare provider about how to care for bottles: Wash your hands before you mix formula, fill a bottle, or offer a bottle. Do this every time. If soap and water aren't available, use an alcohol-based hand drain cleaner plumber. Clean glass bottles and nipples in the administrative hearing officer. Use the hot water setting with a hot drying cycle. Or wash the bottles and nipples with hot, soapy water. Be sure to rinse both completely. Boil them for 5 minutes and cool them. If you use plastic bottles with disposable liners, you will still need to make sure the bottles and nipples are clean. Store clean, unused bottles and nipples with the nipple end facing into the bottle (inverted). Put the bottle caps on the bottles to keep the nipples clean. Facts on formula Baby formulais made from cows milk or soybeans.Formula made from cows milk is more commonly used. But you may need to use formula made from soybeans. Your babys healthcare provider may tell you to use soybean-based formula if your family has a history ofallergiesor your baby has certain health conditions. All formula used should include iron. Uysew-ro-kamy formula Tdvjv-tn-defq formula is the easiest to use, but it also costs the most.Brand names cost more thanstore-brand formulas because these companies spend more money on advertising. Pour the desired amount of uvgzn-rx-hwmt formula into the baby's clean bottle. Once you open the container of formula, it must be stored in the refrigerator. It can only be stored for 24 hours. If not refrigerated, the formula is only safe at room temperature for 1 hour. After that, it mustbe thrown out. You can fill bottles with the formula up to 24 hours ahead of time.You must keep them refrigerated untilyou use them. If your baby does not finish drinking a bottle within 2 hours, throw away the unfinished formula. Ask your healthcare provider how much formula to offer your baby at each feeding. Concentrated liquid formulas Concentrated liquid formulas need to be mixed with water before using. Follow thedirectteganon the jocelyne. Using too much or too little water may harm your baby.Follow these tips: Use water that has been boiled and then cooled. Pour the whole can of concentrated liquid formula into a clean pitcher. Fill the can with water to the top and add it to the pitcher. Mix well. Pour the desired amount of formula into your baby's clean bottle. Store the pitcher of mixed formula in the refrigerator. Keep it for only 24 hours. If not refrigerated, the formula is only safe at room temperature for 1 hour. After that, it must be thrown out. Ask your healthcare provider how much formula to offer your baby at each feeding. Concentrated powder formulas Powdered formulas must be mixed with water before using. Liquid formulas have no germs (sterile). But powdered formula can get germs (bacteria) in it when you make it or when you store it. Follow thesetips to protect your baby from getting sick from these germs: Concentrated powder formulas need to be mixed with clean, boiled water before using. Wash and dry the top of the formula can before you open it. Make sure the can dimension stone quarry supervisor, spoons, scoops, and other tools you use to make the formula are clean. Use very hot water to mix with the formula powder. This means water that is 158F (70C). Dont mix the formula with water until right before you are going to feed your baby. Add the right amount of hot water to the bottle. Then add the right amount of powdered formula. Its important to add the water to the first. Adding the formula first may make it too strong and cause diarrhea. Mix the water and formula well. Test the temperature of the mixed formula by shaking a few drops on your wrist. If it is too hot,cool it by running the bottle under cool tap water. Or put the bottle in an ice bath. Make sure the cooling water does not get into the bottle or on the nipple. If you dont plan to use the prepared formula right away, put it in the refrigerator and use itwithin 24 hours. It is important to keep the dry powder in the formula can clean to prevent bacteria from growing. Ask your healthcare provider how much formula to offer your baby at each feeding. Holding baby and bottle To hold your baby and feed him or her with a bottle, follow these tips: Cradle your baby in your arm, holding your babys head slightly higher thanhis or her bottom. Using the correct position can lower the chance that your baby will choke. Stroke your babyslower lip. When your babys mouth opens, place the nipple on the tongueand feel him or her pull the nipple into the mouth. Tip the bottle so the nipple fills with milk. Forsafety'ssake, never prop the bottle.Your baby can choke if you leave him or her alone with a propped bottle. Feeding your can be a time of bonding and building trust. Hold your baby close to your body, make eye contact, and talk to your baby. Don't let your baby fall asleep while sucking on a bottle. This can lead to tooth decay when he or she is older. If your baby seems hungry but isn't eating well, you can try a different shaped nipple. You might also check the nipple opening. Some babies prefer a faster flow of milk. They can get frustrated when the flow is too slow. If your baby is gagging and choking, you might need a nipple with a smaller hole. The smaller hole slows the flow. Cade with bottle nipples. Let your baby choose which bottle nipple is best for him or her. Burping your baby It is easy for babies to swallow air while bottle-feeding. Burping helps your baby get rid of that air.Tips on burping your baby include: Burp your babywhen he or she acts restless, tries to turn away from the nipple, or slows his orher sucking.This is usually after eating every 1/2 to 1 ounce of formula and when he or she is finished feeding. Your baby can be burped sitting up while you hold the babys jaw, lying face down across your lap, oruprightwith his or her belly against your shoulder. Feeding cues Don't wait for your baby to cry before feeding. Crying is too late of a sign that your baby is ready to eat. Your baby is ready to feed when your baby flutters his or her eyes and moves his or her hands to the mouth as he or she wakes up. Don't force your baby to finish the bottle. This can lead to obesity. Respect cues that he or she is finished. These include letting go of the bottle, turning his or her head away, looking sleepy, or stopping feeding. Offer a pacifier if your baby acts like he or she wants to suckle after finishing the amount of formula your healthcare provider recommended. Babies enjoy sucking. But bottle-fed babies may feed so fast that they dont get enough suckling time. Date Last Reviewed: 04/17/201619994212-6327 [employer]. [address] [place] [address]. All rights reserved. This information is not intended as a substitute for professional medical care. Always follow your healthcare professional's instructions. How to Bottle-Feed Newborns need nutrition and plenty of loving2 things you can supply while bottle-feeding. Both breastmilk and formula can be given to your baby in a bottle. Be sure to place the nipple on the tongue and well into your baby's mouth. Safety tip:Never heat breastmilk or formula in a microwave. This can result in uneven heating. Thehot formulamight burn your baby's mouth. Instead, warm the bottle by putting it in a bowl of warm (not hot) water. Using hot water to heat formula or breastmilk can burn your baby's mouth or throat. Test the temperature of theformulaby dripping a few dropson your wrist. Make sure it is a warmtemperature before giving it to your baby. Bottle care No matter if you use breastmilk or formula, the bottles, nipples, and tools you use to get the formula ready must be clean. Below are suggestions for bottle care, but talk with your healthcare provider about how to care for bottles: Wash your hands before you mix formula, fill a bottle, or offer a bottle. Do this every time. If soap and water aren't available, use an alcohol-based hand drain cleaner plumber. Clean glass bottles and nipples in the administrative hearing officer. Use the hot water setting with a hot drying cycle. Or wash the bottles and nipples with hot, soapy water. Be sure to rinse both completely. Boil them for 5 minutes and cool them. If you use plastic bottles with disposable liners, you will still need to make sure the bottles and nipples are clean. Store clean, unused bottles and nipples with the nipple end facing into the bottle (inverted). Put the bottle caps on the bottles to keep the nipples clean. Facts on formula Baby formulais made from cows milk or soybeans.Formula made from cows milk is more commonly used. But you may need to use formula made from soybeans. Your babys healthcare provider may tell you to use soybean-based formula if your family has a history ofallergiesor your baby has certain health conditions. All formula used should include iron. Cequp-qh-wfic formula Lolmn-mw-kxeq formula is the easiest to use, but it also costs the most.Brand names cost more thanstore-brand formulas because these companies spend more money on advertising. Pour the desired amount of vltdm-dt-eliz formula into the baby's clean bottle. Once you open the container of formula, it must be stored in the refrigerator. It can only be stored for 24 hours. If not refrigerated, the formula is only safe at room temperature for 1 hour. After that, it mustbe thrown out. You can fill bottles with the formula up to 24 hours ahead of time.You must keep them refrigerated untilyou use them. If your baby does not finish drinking a bottle within 2 hours, throw away the unfinished formula. Ask your healthcare provider how much formula to offer your baby at each feeding. Concentrated liquid formulas Concentrated liquid formulas need to be mixed with water before using. Follow thedirectionson the canclosely. Using too much or too little water may harm your baby.Follow these tips: Use water that has been boiled and then cooled. Pour the whole can of concentrated liquid formula into a clean pitcher. Fill the can with water to the top and add it to the pitcher. Mix well. Pour the desired amount of formula into your baby's clean bottle. Store the pitcher of mixed formula in the refrigerator. Keep it for only 24 hours. If not refrigerated, the formula is only safe at room temperature for 1 hour. After that, it must be thrown out. Ask your healthcare provider how much formula to offer your baby at each feeding. Concentrated powder formulas Powdered formulas must be mixed with water before using. Liquid formulas have no germs (sterile). But powdered formula can get germs (bacteria) in it when you make it or when you store it. Follow thesetips to protect your baby from getting sick from these germs: Concentrated powder formulas need to be mixed with clean, boiled water before using. Wash and dry the top of the formula can before you open it. Make sure the can dimension stone quarry supervisor, spoons, scoops, and other tools you use to make the formula are clean. Use very hot water to mix with the formula powder. This means water that is 158F (70C). Dont mix the formula with water until right before you are going to feed your baby. Add the right amount of hot water to the bottle. Then add the right amount of powdered formula. Its important to add the water to the first. Adding the formula first may make it too strong and cause diarrhea. Mix the water and formula well. Test the temperature of the mixed formula by shaking a few drops on your wrist. If it is too hot,cool it by running the bottle under cool tap water. Or put the bottle in an ice bath. Make sure the cooling water does not get into the bottle or on the nipple. If you dont plan to use the prepared formula right away, put it in the refrigerator and use itwithin 24 hours. It is important to keep the dry powder in the formula can clean to prevent bacteria from growing. Ask your healthcare provider how much formula to offer your baby at each feeding. Holding baby and bottle To hold your baby and feed him or her with a bottle, follow these tips: Cradle your baby in your arm, holding your babys head slightly higher thanhis or her bottom. Using the correct position can lower the chance that your baby will choke. Stroke your babyslower lip. When your babys mouth opens, place the nipple on the tongueand feel him or her pull the nipple into the mouth. Tip the bottle so the nipple fills with milk. Forsafety'ssake, never prop the bottle.Your baby can choke if you leave him or her alone with a propped bottle. Feeding your can be a time of bonding and building trust. Hold your baby close to your body, make eye contact, and talk to your baby. Don't let your baby fall asleep while sucking on a bottle. This can lead to tooth decay when he or she is older. If your baby seems hungry but isn't eating well, you can try a different shaped nipple. You might also check the nipple opening. Some babies prefer a faster flow of milk. They can get frustrated when the flow is too slow. If your baby is gagging and choking, you might need a nipple with a smaller hole. The smaller hole slows the flow. Cade with bottle nipples. Let your baby choose which bottle nipple is best for him or her. Burping your baby It is easy for babies to swallow air while bottle-feeding. Burping helps your baby get rid of that air.Tips on burping your baby include: Burp your babywhen he or she acts restless, tries to turn away from the nipple, or slows his orher sucking.This is usually after eating every 1/2 to 1 ounce of formula and when he or she is finished feeding. Your baby can be burped sitting up while you hold the babys jaw, lying face down across your lap, oruprightwith his or her belly against your shoulder. Feeding cues Don't wait for your baby to cry before feeding. Crying is too late of a sign that your baby is ready to eat. Your baby is ready to feed when your baby flutters his or her eyes and moves his or her hands to the mouth as he or she wakes up. Don't force your baby to finish the bottle. This can lead to obesity. Respect cues that he or she is finished. These include letting go of the bottle, turning his or her head away, looking sleepy, or stopping feeding. Offer a pacifier if your baby acts like he or she wants to suckle after finishing the amount of formula your healthcare provider recommended. Babies enjoy sucking. But bottle-fed babies may feed so fast that they dont get enough suckling time. Date Last Reviewed: 04/17/201619997978-6855 [employer]. [address] [place] [address], [place] [address]. All rights reserved. This information is not intended as a substitute for professional medical care. Always follow your healthcare professional's instructions. How to Bottle-Feed Newborns need nutrition and plenty of loving2 things you can supply while bottle-feeding. Both breastmilk and formula can be given to your baby in a bottle. Be sure to place the nipple on the tongue and well into your baby's mouth. Safety tip:Never heat breastmilk or formula in a microwave. This can result in uneven heating. Thehot formulamight burn your baby's mouth. Instead, warm the bottle by putting it in a bowl of warm (not hot) water. Using hot water to heat formula or breastmilk can burn your baby's mouth or throat. Test the temperature of theformulaby dripping a few dropson your wrist. Make sure it is a warmtemperature before giving it to your baby. Bottle care No matter if you use breastmilk or formula, the bottles, nipples, and tools you use to get the formula ready must be clean. Below are suggestions for bottle care, but talk with your healthcare provider about how to care for bottles: Wash your hands before you mix formula, fill a bottle, or offer a bottle. Do this every time. If soap and water aren't available, use an alcohol-based hand drain cleaner plumber. Clean glass bottles and nipples in the administrative hearing officer. Use the hot water setting with a hot drying cycle. Or wash the bottles and nipples with hot, soapy water. Be sure to rinse both completely. Boil them for 5 minutes and cool them. If you use plastic bottles with disposable liners, you will still need to make sure the bottles and nipples are clean. Store clean, unused bottles and nipples with the nipple end facing into the bottle (inverted). Put the bottle caps on the bottles to keep the nipples clean. Facts on formula Baby formulais made from cows milk or soybeans.Formula made from cows milk is more commonly used. But you may need to use formula made from soybeans. Your babys healthcare provider may tell you to use soybean-based formula if your family has a history ofallergiesor your baby has certain health conditions. All formula used should include iron. Fjkvu-po-rxrl formula Ixdjf-ga-ejnp formula is the easiest to use, but it also costs the most.Brand names cost more thanstore-brand formulas because these companies spend more money on advertising. Pour the desired amount of yabkl-qn-evdm formula into the baby's clean bottle. Once you open the container of formula, it must be stored in the refrigerator. It can only be stored for 24 hours. If not refrigerated, the formula is only safe at room temperature for 1 hour. After that, it mustbe thrown out. You can fill bottles with the formula up to 24 hours ahead of time.You must keep them refrigerated untilyou use them. If your baby does not finish drinking a bottle within 2 hours, throw away the unfinished formula. Ask your healthcare provider how much formula to offer your baby at each feeding. Concentrated liquid formulas Concentrated liquid formulas need to be mixed with water before using. Follow thedirectionson the jocelyne. Using too much or too little water may harm your baby.Follow these tips: Use water that has been boiled and then cooled. Pour the whole can of concentrated liquid formula into a clean pitcher. Fill the can with water to the top and add it to the pitcher. Mix well. Pour the desired amount of formula into your baby's clean bottle. Store the pitcher of mixed formula in the refrigerator. Keep it for only 24 hours. If not refrigerated, the formula is only safe at room temperature for 1 hour. After that, it must be thrown out. Ask your healthcare provider how much formula to offer your baby at each feeding. Concentrated powder formulas Powdered formulas must be mixed with water before using. Liquid formulas have no germs (sterile). But powdered formula can get germs (bacteria) in it when you make it or when you store it. Follow thesetips to protect your baby from getting sick from these germs: Concentrated powder formulas need to be mixed with clean, boiled water before using. Wash and dry the top of the formula can before you open it. Make sure the can dimension stone quarry supervisor, spoons, scoops, and other tools you use to make the formula are clean. Use very hot water to mix with the formula powder. This means water that is 158F (70C). Dont mix the formula with water until right before you are going to feed your baby. Add the right amount of hot water to the bottle. Then add the right amount of powdered formula. Its important to add the water to the first. Adding the formula first may make it too strong and cause diarrhea. Mix the water and formula well. Test the temperature of the mixed formula by shaking a few drops on your wrist. If it is too hot,cool it by running the bottle under cool tap water. Or put the bottle in an ice bath. Make sure the cooling water does not get into the bottle or on the nipple. If you dont plan to use the prepared formula right away, put it in the refrigerator and use itwithin 24 hours. It is important to keep the dry powder in the formula can clean to prevent bacteria from growing. Ask your healthcare provider how much formula to offer your baby at each feeding. Holding baby and bottle To hold your baby and feed him or her with a bottle, follow these tips: Cradle your baby in your arm, holding your babys head slightly higher thanhis or her bottom. Using the correct position can lower the chance that your baby will choke. Stroke your babyslower lip. When your babys mouth opens, place the nipple on the tongueand feel him or her pull the nipple into the mouth. Tip the bottle so the nipple fills with milk. Forsafety'ssake, never prop the bottle.Your baby can choke if you leave him or her alone with a propped bottle. Feeding your infant can be a time of bonding and building trust. Hold your baby close to your body, make eye contact, and talk to your baby. Don't let your baby fall asleep while sucking on a bottle. This can lead to tooth decay when he or she is older. If your baby seems hungry but isn't eating well, you can try a different shaped nipple. You might also check the nipple opening. Some babies prefer a faster flow of milk. They can get frustrated when the flow is too slow. If your baby is gagging and choking, you might need a nipple with a smaller hole. The smaller hole slows the flow. Cade with bottle nipples. Let your baby choose which bottle nipple is best for him or her. Burping your baby It is easy for babies to swallow air while bottle-feeding. Burping helps your baby get rid of that air.Tips on burping your baby include: Burp your babywhen he or she acts restless, tries to turn away from the nipple, or slows his orher sucking.This is usually after eating every 1/2 to 1 ounce of formula and when he or she is finished feeding. Your baby can be burped sitting up while you hold the babys jaw, lying face down across your lap, oruprightwith his or her belly against your shoulder. Feeding cues Don't wait for your baby to cry before feeding. Crying is too late of a sign that your baby is ready to eat. Your baby is ready to feed when your baby flutters his or her eyes and moves his or her hands to the mouth as he or she wakes up. Don't force your baby to finish the bottle. This can lead to obesity. Respect cues that he or she is finished. These include letting go of the bottle, turning his or her head away, looking sleepy, or stopping feeding. Offer a pacifier if your baby acts like he or she wants to suckle after finishing the amount of formula your healthcare provider recommended. Babies enjoy sucking. But bottle-fed babies may feed so fast that they dont get enough suckling time. Date Last Reviewed: 04/17/201619997553-1868 [employer]. [address] [place] [address]. All rights reserved. This information is not intended as a substitute for professional medical care. Always follow your healthcare professional's instructions. Understanding Depression Youve just had a baby. You expected to be excited and happy. But instead you find yourself cryingfor no reason. You may have trouble coping with your daily tasks. You feel sad, tired, and hopeless most of the time. You may even feel ashamed or guilty. But what youre going through is not your fault and you can feel better. Talk to your healthcare provider. He or she can help. What is depression? Depression is a mood disorder that affects the way you think and feel. The most common symptom is a feeling of deep sadness. You may also feel as if you just cant cope with life. Other symptoms include: Gaining or losing a lot of weight Sleeping too much or too little Feeling tired all the time Feeling restless Crying a lot Having too little or too much appetite. Withdrawing from friends and family Having headaches, aches and pains, or stomach problems that won't go away. Fears of harming your baby Lack of interest in your baby Feeling worthless or guilty No longer finding pleasure in things you used to Having trouble thinking clearly or making decisions Thinking about or suicide Depression after childbirth You may be weepy and tired right after giving . These feelings are normal. Theyre sometimes called the baby blues. These blues go away after 1 to 2 weeks. However, (meaning after ) depression lasts much longer and is more severe than the "baby blues." It can make you feel sad and hopeless. You may also fear that your baby will be harmed and worry about being a bad mother. What causes depression? The exact cause of depression is unknown. Changes in brain chemistry or structure are believed to play a big role in depression.It may be due to changes in your hormones during and after childbirth. You may also be tired from caring for your baby and adjusting to being a mother. All thesefactors may make you feel depressed. In some cases, your genes may also play a role. Depression can be treated There are many ways to treat depression. Talking to your healthcare provider is the firststep toward feeling better. When to call your healthcare provider Call your healthcare provider if you: Cry for no clear reason Have trouble sleeping, eating, and making choices Questions whether you can handle caring for a baby Have intense feelings of sadness, anxiety, or despair that prevent you from being able to do yourdaily tasks Resources National [place] of Mental Tddfel179-922-7819npy.nimh.nih.gov National [place] on Mental Rsbtcye924-078-4607spj.alicia.org Mental Health Tegollf011-545-0321ihp.[facility].org National Suicide Bumrugp340-253-2942 (800-SUICIDE) Date Last Reviewed: 08/17/201619994147-9084 [employer]. [address] [place] [address], [place] [address]. All rights reserved. This information is not intended as a substitute for professional medical care. Always follow your healthcare professional's instructions. After a Vaginal After having a baby, your body may be very tired. It can take time to recover from a vaginal delivery. You may stay in the hospital or center from 1 to 4 days.In some cases, you may be able to go home the same day. Right after the delivery Your temperature and blood pressure will be taken until they are stable. A nurse or other healthcareprovider will observe you as you rest. You may have afterbirth pains. These are cramps caused by theuterus shrinking. Sanitary pads are used to soak up the discharge of the uterine lining. To make sure that you arent bleeding too much, the pad will be checked. And the firmness of your uterus will be checked. To do this, a nurse will gently push down on your stomach. If you had anesthesia, youll be watched closely until you can feel and move your toes. If you have perineal pain (pain between the vagina and anus) , an ice pack can help. [place] care While still in the hospital or center, youll learn how to hold and feed your baby. You willalso be given instructions on how to care for your baby. This includes bathing and feeding. Preparing to go home You may be anxious to go home as soon as possible. Before you and your baby go home, a healthcare provider will check to be sure you are healthy enough to take care of your baby and yourself. Youre ready to go home when: You can walk to the bathroom and use the bathroom without help. You can eat solid food and swallow pills (if needed). You have no sign of infection or other health problems, including fever. You have adequate pain control. Your bleeding isn't excessive. You are able to care for your and are emotionally stable. Before leaving the hospital or center, youll be given written instructions for home self-care after vaginal delivery. Be sure to follow these instructions carefully. If you have questions or concerns, talk about them now. If you have stitches You may have received stitches in the skin near your vagina. The stitches might have closed an episiotomy (an incision that enlarges the opening of the vagina) . Or you may have needed stitches to repair torn skin. Either way, your stitches should dissolve within weeks. Until then, you can help reduce discomfort, aid healing, and reduce your risk of infection by keeping the stitches clean. These tips can help: Gently wipe from front to back after you urinate or have a bowel movement. After wiping, spray warm water on the area. Or you can have a sitz bath. This means sitting in a tub with a few inches of water in it. Then pat the area dry or use a hairdryer on a cool setting. Do not use soap or any solution except water on the area. You can take a shower unless told not to. Change sanitary pads at least every [address] cold or heat packs on the area as directed by your healthcare providers or nurses. Keep a thin towel between the pack and your skin. Sit on firm seats so the stitches pull less. follow-up Schedule a follow-up exam with your healthcare provider for about 6 weeks after delivery. During this exam, your uterus and vaginal area will be checked. Contact your healthcare provider if you think you or your baby are having any problems. When to call your healthcare provider Call your healthcare provider right away if you have: A fever of 100.4F (38.0C) or higher Bleeding that needs a new sanitary pad after an hour, or large blood clots Pain in your vagina that gets worse and isn't relieved with medicine Swelling, discharge, or increased pain from vaginal tear or episiotomy Burning, pain, red streaks, or lumpy areas in your breasts that may be accompanied by flu-like symptoms Cracks, blisters, or blood on your nipples Burning or pain when you urinate Nausea or vomiting Dizziness or fainting Feelings of extreme sadness or anxiety, or a feeling that you dont want to be with your baby Belly pain that isnt relieved with medicine Vaginal discharge that has a bad odor No bowel movement for 5 days Painful urination, or inability to control urination Redness, warmth, or pain in the lower leg Chest pain Date Last Reviewed: 01/17/201719995402-3751 [employer]. [address] [place] [address], [place] [address]. All rights reserved. This information is not intended as a substitute for professional medical care. Always follow your healthcare professional's instructions. documented in this encounter Progress Notes Rukhsana Lugo, WHCNP - 11/02/2018 9:30 AM CDT Chief complaint: Chief Complaint Patient presents with Care 3WK HPI The patient is here for a routine PP visit. She has no complaints today. She states that she is /formula feeding her infant, is bonding well , and coping well with less sleep. She reports that she has no pain, small lochia, and denies all s/s of PP depression. She wants nexplanon for PP contraception. Histories OB History Para Term AB Living 2 2 2 2 SAB TAB Ectopic Multiple Live Births 0 1 # Outcome Date GA Lbr Bladimir/2nd Weight Sex Delivery Anes PTL Lv 2 Term 10/12/18 38w6d 8 lb 1.1 oz (3.66 kg) F NORMAL SPONT EPI N ELIANE 1 Term 2014 42w0d M NORMAL SPONT Past Medical History: Diagnosis Date Abnormal maternal glucose tolerance, antepartum 02/21/2018 Anemia, 10/12/2018 Nausea and vomiting in prior to [...] Surgical History: Procedure Laterality Date CHOLECYSTECTOMY TONSILLECTOMY 2013 Social History Socioeconomic History Marital status: Single [...] file Gets together: Not on file Attends buddhist service: Not on file Active member of [...] control/protection: None Labs No new labs and Admission on 10/11/2018, Discharged on 10/13/2018 Component Date Value HBsAg 10/11/2018 Negative HBsAg Semi-Quantitative 10/11/2018 0.05 Syphilis IgG/IgM 10/11/2018 Non-reactive ABO & RH 10/11/2018 B POSITIVE IAT 10/11/2018 Negative VENOUS BASE EXCESS, CORD 10/12/2018 -1.4 VENOUS PH, CORD 10/12/2018 7.38 VENOUS PC02, CORD 10/12/2018 40 VENOUS PO2, CORD 10/12/2018 26 VENOUS BICARBONATE, CORD 10/12/2018 24 BASE EXCESS, CORD 10/12/2018 -0.4 AC PH, CORD (BEAKER) 10/12/2018 7.37 PC02, CORD 10/12/2018 45 PO2, CORD 10/12/2018 38* BICARBONATE, CORD 10/12/2018 25 POCT GLU 10/11/2018 99 WBC 10/13/2018 9.95 RBC 10/13/2018 3.47* HGB 10/13/2018 9.4* HCT 10/13/2018 31.1* MCV 10/13/2018 89.6 MCH 10/13/2018 27.1 MCHC 10/13/2018 30.2* RDW-SD 10/13/2018 46.6 RDW-CV 10/13/2018 14.5 PLT 10/13/2018 241 MPV 10/13/2018 9.9 NRBC/100 WBC 10/13/2018 0.0 NRBC x10^3 10/13/2018 <0.01 GRAN MAT (NEUT) % 10/13/2018 68.1 IMM GRAN % 10/13/2018 0.90 LYMPH % 10/13/2018 22.0 MONO % 10/13/2018 7.0 EOS % 10/13/2018 1.7 BASO % 10/13/2018 0.3 GRAN MAT x10^3(ANC) 10/13/2018 6.77 IMM GRAN x10^3 10/13/2018 0.09* LYMPH x10^3 10/13/2018 2.19 MONO x10^3 10/13/2018 0.70 EOS x10^3 10/13/2018 0.17 BASO x10^3 10/13/2018 0.03 Routine Visit on 10/07/2018 Component Date Value POCT PH U 10/07/2018 . POCT U LEUK EST 10/07/2018 . POCT U NIT 10/07/2018 . POCT U PROT 10/07/2018 Trace POCT U GLU 10/07/2018 Neg POCT U KETONE 10/07/2018 . POCT U BLD 10/07/2018 . Routine Visit on 09/30/2018 Component Date Value [...] 08/12/2018 . POCT U BLD 08/12/2018 . Radiology No new radiology. Allergies Gail has No Known Allergies. Medications Gail has a current medication list which includes the following prescription(s ): docusate calcium,ferrous sulfate, ibuprofen, vitamin w/fa, qirlpsrzratkt-hevj-jrmpzgqupg, and promethazine. Review of Systems Constitutional: Negative. HENT: Negative. Eyes: Negative. Respiratory: Negative. Breasts: Negative. Cardiovascular: Negative. Gastrointestinal: Negative. Genitourinary: Positive for vaginal bleeding. Musculoskeletal: Negative. Skin: Negative. Neurological: Negative. Psychiatric/Behavioral: Negative. Endocrine: Endocrine negative BP 113/67 (BP Location: Right arm, Patient Position: Sitting, BP CUFF SIZE: Adult Medium) | Pulse 50 | Temp 36.6 C (97.9 F) (Oral) | Resp 16 | Ht 5 ' 7" (1.702 m) | Wt 191 lb 5 oz (86.8 kg) | LMP 01/13/2018 | BMI 29.96 kg/m Pregravid BMI: 32.6 Physical Exam Vitals reviewed. Constitutional: She is oriented to person, place, and time. She appears well- developed, well-nourished and well-groomed. Cardiovascular: Regular rate and rhythm. No peripheral edema present. Pulmonary/Chest: Normal inspiratory effort. Abdominal: Abdomen is soft. Normal appearance. No mass palpated. No tenderness present. There is no hepatosplenomegaly, splenomegaly or hepatomegaly. There is no rigidity and no guarding. No hernia palpated or inspected. Fundus firm Neuro/Psychiatric: She has a normal mood and affect. She is oriented to person, place, and time. Skin: Skin normal. Breast: Right breast exhibits no mass, no nipple discharge and no tenderness. Left breast exhibits no mass, no nipple discharge and no tenderness. Breasts are symmetrical. Normal left breast and normalright breast Rectal: Rectal exam with normal anal tone. No mass, no external hemorrhoid and no internal hemorrhoid palpated or inspected. normal rectum External genitalia: Normal external genitalia appropriate for age. Normal hair distribution. No labial lesion. Vagina:No lesion inspected. Normal estrogen effect. Normal support. Vaginal discharge found. Lochia WNL, small rubra Uterus: Uterus is normal size, normal contour, normal position and non-tender. Involution WNL Normal uterus Assessment/Plan Return to clinic in 3 weeks. Routine follow-up (primary encounter diagnosis) Comment: routine pp visit Plan: routine pp care This visit did not involve counseling and coordination that comprised more than 50% of the visit time. MARIBETH Wagner 11/02/2018 10:08 AM Nasir Spence RN - 11/02/2018 9:30 AM CDTPt in clinic today for 3 wk pp visit. 1) Delivery method Vaginal 2) Patient delivered on 10/12/2018 at [facility] 3) Patient is currently bottlefeeding) 4) Desired BCM: Nexplanon 5) Patient denies pp depression 6) patient reports light vaginal spotting, denies any lochia, and or pelvic pain. NASIR MOROCHO RN 11/02/2018 9:50 AM documented in this encounter Plan of Treatment [...] this topic documented as of this encounter Results Not on filedocumented in this encounter Visit Diagnoses Diagnosis Routine follow-up - Primary documented in this encounter Insurance Payer Benefit Plan / Subscriber ID Effective Dates Phone Address Type Group [facility] xxxxxxxxx 2018-Present Medicaid COMM PLAN - MANAGED MEDICAID documented as of this encounter Advance Directives Name Relationship Healthcare Agent Relationship Communication Keke Beatty Grandparent Primary healthcare agent
--- OUTSIDE RECORDS SUMMARY | 2019-01-05 16:01 | XMS REPORT | Summary of Care ---
:1995 Author Organization [facility] - Health Address [address] [place] [address] Care Team Providers Name Role Phone Edsonannamariapatricia Rukhsana Sprague [facility] Primary Care Provider Karla Butterfield [facility] Insurance Hmo Encounter Details Date Type Department Care Team Description 10/11/2018 Orders Only [facility] Doctor Unassigned, No [address] [facility] [place] [address] [place] [id number] Allergies No Known Allergiesdocumented as of this encounter (statuses as of 10/20/2018) Medications Medication Sig Dispensed Refills Start Date End Date Status proMETHazine 25 mg Take 1 tablet by 30 tablet 0 06/26/2018 Active tabletIndications: mouth every 6 Nausea and vomiting (six) hours as during needed for Nausea and Vomiting (N/V). zltynmmmtzlmi-pwxm-thkh Take 1 capsule 30 capsule 0 08/26/2018 [...] as of this encounter (statuses as of 10/20/2018) Active Problems Problem Noted Date Anemia, 10/12/2018 [...] puerperium, antepartum 2013 Overview: ICD10 Diagnosis Term Operations Executive Utility Comments Yes documented as of this encounter (statuses as of 10/20/2018) Resolved Problems Problem Noted Date Resolved Date Vaginal yeast infection 04/29/2018 10/12/2018 Nausea and vomiting during 03/23/2018 10/12/2018 Nausea and vomiting in prior to 22 weeks gestation 12/07/201302/20 Supervision of high-risk 12/07/2013 10/12/2018 documented as of this encounter (statuses as of 10/20/2018) Immunizations Name Administration Dates Next Due TDAP [...] of this encounter Last Filed Vital Signs Not on filedocumented in this encounter Plan of Treatment Date Type Specialty Care Team Description 11/02/2018 Routine Visit OB Satellites Rukhsana Lugo, WHCNP [address] [place] [address] [phone] Health Maintenance Due Date Last Done Comments [...] Procedure Name Priority Date/Time Associated Diagnosis Comments HOSPITAL ADMISSION Routine 10/11/2018 12:01 AM CDT documented in this encounter Results Not on filedocumented in this encounter Insurance Payer Benefit Plan / Subscriber ID Effective Dates Phone Address Type Group [facility] xxxxxxxxx 2018-Present Medicaid COMM PLAN - MANAGED MEDICAID documented as of this encounter Advance Directives Name Relationship Healthcare Agent Relationship Communication Keke Beatty Grandparent Primary healthcare agent
--- OUTSIDE RECORDS SUMMARY | 2019-01-05 16:02 | XMS REPORT | Summary of Care ---
:1995 Author Organization [facility] Address [address] [place] [id number] Care Team Providers Name Role Phone Rukhsana Lugo [facility] Primary Care Provider Karla Butterfield [facility] Insurance Hmo Reason for Visit Reason Comments [...] or unspecified fetus WHCNP Procedures DISCHARGE FOLLOW-UP: [facility] [address] [place] [address] Encounter Details Date Type Department Care Team Description 11/02/2018 Routine [facility]- Edsonsipatricia, Routine Visit MARIBETH Huerta follow-up (Primary [address]) [facility] [id number] [facility] [phone] [place] [address] Allergies No Known Allergiesdocumented as of this encounter (statuses as of 11/02/2018) Medications Medication Sig Dispensed Refills Start Date End Date Status proMETHazine 25 mg Take 1 tablet by 30 tablet 0 06/26/2018 Active tabletIndications: mouth every 6 Nausea and vomiting (six) hours as during needed for Nausea and Vomiting (N/V). 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 Clean glass bottles and nipples in the script reader. Use the hot water setting with a [...] conditions. All formula used should include iron. Qqczt-pv-lavg formula Oyohv-oa-aviq formula is the easiest to use, but it also costs the most.Brand names cost more thanstore-brand formulas because these companies spend more money on advertising. Pour the desired amount of pfvvz-yn-yrkp formula into the baby's clean bottle. Once [...] you open it. Make sure the can architecture professor, spoons, scoops, and other tools you use [...] hole. The smaller hole slows the flow. Killian with bottle nipples. Let your baby choose [...] get enough suckling time. Date Last Reviewed: 04/17/201619995912-5612 [employer]. [address] [place] [address]. All rights reserved. This information is not [...] water aren't available, use an alcohol-based hand curve cleaner. Clean glass bottles and nipples in the script reader. Use the hot water setting with a [...] conditions. All formula used should include iron. Ljwgq-gj-lqxa formula Bvdtr-rk-ggdh formula is the easiest to use, but it also costs the most.Brand names cost more thanstore-brand formulas because these companies spend more money on advertising. Pour the desired amount of mxhpz-rq-okax formula into the baby's clean bottle. Once [...] you open it. Make sure the can architecture professor, spoons, scoops, and other tools you use [...] hole. The smaller hole slows the flow. Killian with bottle nipples. Let your baby choose [...] get enough suckling time. Date Last Reviewed: 04/17/201619996902-0492 [employer]. [address] [place] [address], [place] [address]. All rights reserved. This information is not [...] water aren't available, use an alcohol-based hand curve cleaner. Clean glass bottles and nipples in the script reader. Use the hot water setting with a [...] conditions. All formula used should include iron. Qgelx-vu-uxnc formula Mvngz-qp-vjmu formula is the easiest to use, but it also costs the most.Brand names cost more thanstore-brand formulas because these companies spend more money on advertising. Pour the desired amount of vsxpb-ov-oejz formula into the baby's clean bottle. Once [...] you open it. Make sure the can architecture professor, spoons, scoops, and other tools you use [...] hole. The smaller hole slows the flow. Killian with bottle nipples. Let your baby choose [...] get enough suckling time. Date Last Reviewed: 04/17/201619999532-[address] [employer] [place] [address]. All rights reserved. This information is not [...] able to do yourdaily tasks Resources National [place] of Mental Deckcd516-435-3389jzh.nimh.nih.gov National [employer] on Mental Xfhuyxu770-497-8587wwp.alicia.org Mental Health Uytkjcr226-352-8410eow.rust.org National Suicide Dvdqhee404-269-2874 (800-SUICIDE) Date Last Reviewed: 08/17/201619992658-0385 [employer]. [address] [place] [address], [place] [address]. All rights reserved. This information is not [...] anus) , an ice pack can help. [place] care While still in the hospital or [...] lower leg Chest pain Date Last Reviewed: 01/17/201719994581-1984 [employer]. [address] [place] [address], [place] [address]. All rights reserved. This information is not [...] file Gets together: Not on file Attends church service: Not on file Active member of [...] ): docusate calcium,ferrous sulfate, ibuprofen, vitamin w/fa, eqsppcxdxcxjt-urdr-crvkfyvaub, and promethazine. Review of Systems Constitutional: Negative. [...] Vaginal 2) Patient delivered on 10/12/2018 at [facility] 3) Patient is currently bottlefeeding) 4) Desired BCM: Nexplanon 5) Patient denies pp depression 6) patient reports light vaginal spotting, denies any lochia, and or pelvic pain. NASIR MOROCHO RN 11/02/2018 9:50 AM documented in this encounter Plan of Treatment Date Type Specialty Care Team Description 11/23/2018 [facility] [address] [place], [place] [id number] Health Maintenance Due Date Last Done Comments [...] ID Effective Dates Phone Address Type Group [facility] xxxxxxxxx 2018-Present Medicaid COMM PLAN - MANAGED MEDICAID documented as of this encounter Advance Directives Name Relationship Healthcare Agent Relationship Communication Keke Beatty Grandparent Primary healthcare agent [phone] ([place])
[2019-01-05] MEDS ORDERED: ALBUTEROL 2.5 MG/3 ML NEB SOL ONE (16:51)
--- NOTE | 2019-01-05 17:26 | ER ---
Nurse's Notes [facility] Name: Gail Juárez Age: 23 yrs Sex: Female : 1995 Arrival Date: 01/05/2019 Time: 15:59 Bed 25 Private MD: Diagnosis: Acute upper respiratory infection, unspecified Presentation: 01/05 16:10 Presenting complaint: Cough, sinus congestion, and watery eyes x 2 days. Denies fever. hb Transition of care: patient was not received from another setting of care. Onset of symptoms was January 03, 2019. Risk Assessment: Do you want to hurt yourself or someone else? Patient reports no desire to harm self or others. Initial Sepsis Screen: Does the patient meet any 2 criteria? No. Patient's initial sepsis screen is negative. Does the patient have a suspected source of infection? No. Patient's initial sepsis screen is negative. Care prior to arrival: None. 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 - Social history:: Smoking status: Patient/guardian denies using tobacco. - Ebola Screening: : No symptoms or risks identified at this time. Screenin:06 Abuse screen: Denies threats or abuse. Nutritional screening: No deficits noted. tr5 Tuberculosis screening: No symptoms or risk factors identified. Fall Risk None identified. Assessment: 17:06 General: Appears uncomfortable, Behavior is calm, cooperative, appropriate for age. tr5 Pain: Denies pain. Neuro: Level of Consciousness is awake, alert, obeys commands, Oriented to person, place, time, Cemetery Manager are equal bilaterally. Cardiovascular: Heart tones present Capillary refill < 3 seconds. Respiratory: Reports cough that is productive, Airway is patent Respiratory effort is even, unlabored, Respiratory pattern is regular, symmetrical, Breath sounds are clear bilaterally. GI: No signs and/or symptoms were reported involving the gastrointestinal system. : No signs and/or symptoms were reported regarding the genitourinary system. EENT: Reports nasal congestion. Derm: No signs and/or symptoms reported regarding the dermatologic system. Musculoskeletal: No signs and/or symptoms reported regarding the musculoskeletal system. Vital Signs: 16:13 BP 127 / 77; Pulse 101; Resp 16; Temp 97.8; Pulse Ox 100% on R/A; Weight 83.91 kg; hb Height 5 ft. 7 in. (170.18 cm); Pain 4/10; 16:13 Body Mass Index 28.97 (83.91 kg, 170.18 cm) hb ED Course: 15:59 Patient arrived in ED. mr 16:12 Triage completed. hb 16:13 Arm band placed on. hb 16:19 Irene Alex [facility]-C [facility]. snw 16:19 Hermann Price MD is Attending Physician. snw 16:46 Flu and/or RSV swab sent to lab. lt1 16:46 Flu Sent. lt1 16:49 Oleg Hairston, SUNDAR is Primary Nurse. tr5 17:06 Bed in low position. Call light in reach. Side rails up X 1. tr5 17:49 No provider procedures requiring assistance completed. Patient did not have IV access tr5 during this emergency room visit. Administered Medications: 17:05 Drug: Albuterol 2.5 mg Route: Inhalation; tr5 Outcome: 17:25 Discharge ordered by . snw 17:49 Discharged to home ambulatory. tr5 17:49 Condition: stable 17:49 Discharge instructions given to patient, Instructed on discharge instructions, follow up and referral plans. the need for admit, Demonstrated understanding of instructions, follow-up care, medications, Prescriptions given X 1. 17:53 Patient left the ED. tr5 Signatures: Irene Alex FNP-C FNP-Ancelmo Amanda Landon AyoubSandy, RN SUNDAR Liliana Hays 1 Oleg Hairston RN RN tr5
--- NOTE | 2019-01-05 17:26 | EDPHYS ---
Physician Documentation [facility] Name: Gail Juárez Age: 23 yrs Sex: Female : 1995 Arrival Date: 01/05/2019 Time: 15:59 Bed 25 Private MD: ED Physician Hermann Price HPI: 01/05 16:45 This 23 yrs old Female presents to ER via Ambulatory with complaints of snw Cough, Congestion. 16:45 The patient or guardian reports cough, flu symptoms, low-grade fever. Onset: The snw symptoms/episode began/occurred suddenly, 1 week(s) ago. Severity of symptoms: At their worst the symptoms were mild. Associated signs and symptoms: The patient has no apparent associated signs or symptoms. It is unknown whether or not the patient has had similar symptoms in the past. It is unknown whether or not the patient has recently seen a physician. recent exposure to rsv. 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 - Social history:: Smoking status: Patient/guardian denies using tobacco. - Ebola Screening: : No symptoms or risks identified at this time. ROS: 16:44 Constitutional: Negative for fever, chills, and weight loss, Eyes: Negative for injury, snw pain, redness, and discharge, ENT: Negative for injury, pain, and discharge, + congestion Neck: Negative for injury, pain, and swelling, Cardiovascular: Negative for chest pain, palpitations, and edema, Respiratory: Negative for shortness of breath, wheezing, and pleuritic chest pain, + cough Abdomen/GI: Negative for abdominal pain, nausea, vomiting, diarrhea, and constipation, Back: Negative for injury and pain, : Negative for injury, bleeding, discharge, and swelling, MS/Extremity: Negative for injury and deformity, Skin: Negative for injury, rash, and discoloration, Neuro: Negative for headache, weakness, numbness, tingling, and seizure. Exam: 16:42 Constitutional: This is a well developed, well nourished patient who is awake, alert, snw and in no acute distress. Head/Face: Normocephalic, atraumatic. Eyes: Pupils equal round and reactive to light, extra-ocular motions intact. Lids and lashes normal. Conjunctiva and sclera are non-icteric and not injected. Cornea within normal limits. Periorbital areas with no swelling, redness, or edema. ENT: Nares patent. No nasal discharge, no septal abnormalities noted. Tympanic membranes are normal and external auditory canals are clear. Oropharynx with no redness, swelling, or masses, exudates, or evidence of obstruction, uvula midline. Mucous membranes moist. Neck: Trachea midline, no thyromegaly or masses palpated, and no cervical lymphadenopathy. Supple, full range of motion without nuchal rigidity, or vertebral point tenderness. No Meningismus. Chest/axilla: Normal chest wall appearance and motion. Nontender with no deformity. No lesions are appreciated. Cardiovascular: Regular rate and rhythm with a normal S1 and S2. No gallops, murmurs, or rubs. Normal PMI, no JVD. No pulse deficits. Respiratory: Lungs have equal breath sounds bilaterally, clear to auscultation and percussion. No rales, rhonch, mild occasional wheeze noted. No increased work of breathing, no retractions or nasal flaring. Abdomen/GI: Soft, non-tender, with normal bowel sounds. No distension or tympany. No guarding or rebound. No evidence of tenderness throughout. Back: No spinal tenderness. No costovertebral tenderness. Full range of motion. Skin: Warm, dry with normal turgor. Normal color with no rashes, no lesions, and no evidence of cellulitis. MS/ Extremity: Pulses equal, no cyanosis. Neurovascular intact. Full, normal range of motion. Neuro: Awake and alert, GCS 15, oriented to person, place, time, and situation. Cranial nerves II-XII grossly intact. Motor strength 5/5 in all extremities. Sensory grossly intact. Cerebellar exam normal. Normal gait. Psych: Awake, alert, with orientation to person, place and time. Behavior, mood, and affect are within normal limits. Vital Signs: 16:13 BP 127 / 77; Pulse 101; Resp 16; Temp 97.8; Pulse Ox 100% on R/A; Weight 83.91 kg; hb Height 5 ft. 7 in. (170.18 cm); Pain 4/10; 16:13 Body Mass Index 28.97 (83.91 kg, 170.18 cm) hb MDM: 16:21 Patient medically screened. snw 17:30 Data reviewed: vital signs, nurses notes. Data interpreted: Pulse oximetry: on room air snw is 100 %. Interpretation: normal. Counseling: I had a detailed discussion with the patient and/or guardian regarding: the historical points, exam findings, and any diagnostic results supporting the discharge/admit diagnosis, lab results, the need for outpatient follow up, to return to the emergency department if symptoms worsen or persist or if there are any questions or concerns that arise at home. 01/05 16:21 Order name: Flu; Complete Time: 17:25 snw Administered Medications: 17:05 Drug: Albuterol 2.5 mg Route: Inhalation; tr5 Disposition: 21:23 Co-signature as Attending Physician, Hermann Price MD. rn Disposition: 01/05/19 17:25 Discharged to Home. Impression: Acute upper respiratory infection, unspecified. - Condition is Stable. - Discharge Instructions: Upper Respiratory Infection, Adult, Viral Respiratory Infection, Rehydration, Adult. - Prescriptions for cetirizine 1 mg/mL Oral Solution - take 5 milliliter by ORAL route once daily; 105 milliliter. - Medication Reconciliation Form, Thank You Letter, Antibiotic Education, Prescription Opioid Use form. - Follow up: Private Physician; When: 2 - 3 days; Reason: Recheck today's complaints, Continuance of care, Re-evaluation by your physician. Follow up: Emergency Department; When: As needed; Reason: Worsening of condition. Signatures: Dispatcher [employer] EDMT Irene Alex, RING STRIKER-C RING STRIKER-Csnw Hermann Price MD MD rn Baxter, Heather, Kimberley Serrano RN, RN RN 2 Oleg Hairston, SUNDAR RN tr5 Corrections: (The following items were deleted from the chart) 17:53 17:25 01/05/2019 17:25 Discharged to Home. Impression: Acute upper respiratory tr5 infection, unspecified. Condition is Stable. Forms are Medication Reconciliation Form, Thank You Letter, Antibiotic Education, Prescription Opioid Use. Follow up: Private Physician; When: 2 - 3 days; Reason: Recheck today's complaints, Continuance of care, Re-evaluation by your physician. Follow up: Emergency Department; When: As needed; Reason: Worsening of condition. snw
[2019-01-05 17:58] VITALS: BP 127/77; TEMP 97.8; O2SAT 100
== END 2019-01-05 17:53 | disposition home or self-care (01) ==
LOC: ER 15:56
DX: J06.9 Acute upper respiratory infection, unspecified (principal)
CPT/HCPCS: 87804; 99284

== ENCOUNTER 2021-05-21 21:11 | Emergency (ER) | payer OTHER ==
--- OUTSIDE RECORDS SUMMARY | 2021-05-21 21:25 | XMS REPORT | Continuity of Care Document ---
:1995 Author Organization [facility] [place] [facility] t Address [address] [place] [address] Care Team Providers Name Role Phone Mickeyjuan pablo MCLEOD Primary Care Physician AKINARCHIE C Attending Clinician Unavailable Akinarchie STAHL C Attending Clinician Jovanni Souza MD Attending Clinician Wild GOMEZ Attending Clinician Risk Attending Clinician Unavailable Brandy STAHL, L Attending Clinician Ultrasound Attending Clinician Unavailable Dave GOMEZ, F Attending Clinician Gadiel ECHOLS Attending Clinician Unavailable Simin GOMEZ, Carla Attending Clinician Tyson GOMEZ Attending Clinician Doctor Unassigned, Name Attending Clinician Unavailable OLIVER BLANDON Attending Clinician Unavailable Oliver Blandon DO Attending Clinician Laura GRAHAM Attending Clinician Unavailable Lab Attending Clinician Unavailable Santos MCLEOD, N Attending Clinician Shanna Umanzor Attending Clinician Sacha GOMEZ Attending Clinician MICKEY Attending Clinician Unavailable Mickey MCLEOD Attending Clinician theresa Attending Clinician Unavailable Gadiel Blandon MD Attending Clinician Kortney Garcia Attending Clinician Herman RN, D Attending Clinician Unavailable WILD Admitting Clinician Unavailable SIMIN, CARLA Admitting Clinician Unavailable TYSON Admitting Clinician Unavailable Libby GOMEZ, Jovanni Admitting Clinician Carla Dickens MD Admitting Clinician Tyson GOMEZ Admitting Clinician theresa Admitting Clinician Unavailable Gadiel Blandon MD Admitting Clinician Kortney Garcia Admitting Clinician Payers Payer Name Policy Type Policy Number Effective Date Expiration Date [facility] [id number] 2020 00:00:00 MEDICAID PENDING PENDING 2020 00:00:00 Advance Directives Directive Decision Effective Termination Comments Source Date Date Healthcare Agents on N/A [facility] ersity FileNameRelationshipHealthcare [facility] Agent Medical RelationshipCommunicationPaP[facility] System[facility]parent[facility] Care [phone] (Mobile) Problems Condition Condition Condition Status Onset Resolution Last Treating Co mments Source Name Details Category Date Date Treatment Clinician Date Other Other Disease Active Univers general general 7-14 [place]y of counseling [place] and advice and advice 00 Me dical for for [place] contracept contracept mark mark management management Well woman Well woman Disease Active U nivers exam exam 6-21 ity of 00:00: [address] History of History of Disease Active U nivers tubal tubal 6-21 ity of ligation ligation 00:00: [address] Single Single Disease Active Univers liveborn liveborn 5-30 ity of 00:00: [address] Disease Active Univers (spontaneo (spontaneo 5-30 it y of us vaginal us vaginal 00[place] delivery[place] delivery[place] 00 [facility] 37 weeks 37 weeks Disease Active Unive rs gestation gestation 5-28 ity of of of 00:00: [place] 00 [facility] 36 weeks 36 weeks Disease Active Unive rs gestation gestation 5-22 ity of of of 00:00: [place] 00 [facility] High-risk High-risk Disease Active Uni vers 5-20 ity of in third in third 00:00: [place] trimester trimester 00 [facility] Oral Oral Disease Active Univers hypoglycem hypoglycem 5-20 it y of ic ic 00:00: [place] controlled controlled 00 Me dical [place] classifica classifica tion A2 tion A2 gestationa gestationa l diabetes l diabetes mellitus mellitus (GDM) (GDM) Abnormal Abnormal Disease Active Unive rs finding in finding in 5-20 it y of urine urine 00:00: [place] 00 [facility] Branch Hematuria, Hematuria, Disease Active U nivers unspecifie unspecifie 5-20 it y of d type d type 00:00: [place] 00 [facility] Branch Diabetes Diabetes Disease Active Unive rs mellitus mellitus 3-18 ity of complicati complicati 00:00: [place] ng ng 00 Medical , , Br anch antepartum antepartum GDM GDM Disease Active Univers (gestation (gestation 3-18 it y of al al 00:00: [place] diabetes diabetes 00 Medica l mellitus) mellitus) Bran ch Abnormal Abnormal Disease Active Overview: Un indra maternal maternal 3-10 Formattin ity of glucose glucose 00:00: g of this [place] tolerance, tolerance, 00 note Me dical antepartum antepartum might be Branch different from the original. Pending 3hr gtt Anemia of Anemia of Disease Active Uni vers mother in mother in 3-05 ity of , , 00:[place] antepartum antepartum 00 Me dical Branch Dizziness Dizziness Disease Active Uni vers and and 3-04 ity of giddiness giddiness 00:[place] [facility] Obesity Obesity Disease Active 2019-02 Univers (BMI (BMI 1-17 ity of 30-39.9) 30-39.9) 00:00: [place] [facility] Supervisio Supervisio Disease Active 2020- U nivers n of high n of high 1-17 ity of risk risk 00:00: [place] 00 [facility] in second in second Bran ch trimester trimester Multiparit Multiparit Disease Active 2019-02 U nivers y y 1-17 ity of 00:00: [place] [facility] Obesity Obesity Disease Active 2019-02 Univers complicati complicati 1-17 it y of ng ng 00:00: [place] , , 00 Me dical childbirth childbirth Br anch , or , or puerperium puerperium , , antepartum antepartum Tubal Tubal Disease Active 2019-02 Univers ligation ligation 1-17 ity of evaluation evaluation 00:00: [place] [facility] Refused Refused Disease Active 2019-02 Univers influenza influenza -17 ity of vaccine vaccine 00:00: [place] [address] Medical Branch Elevated Elevated Disease Active 2019-02 Unive rs BP without BP without 1-17 it y of diagnosis diagnosis 00:00: Eloina hinojosa of of Medical hypertensi hypertensi Br anch on on Nausea and Nausea and Disease Active 2019-02 U scooter vomiting vomiting 1-17 ity of during during 00:00: [place] 00 [facility] Branch Disease Active 2019-02 Uni vers screening screening 1-17 ity of for Down for Down 00:00: [place] syndrome syndrome 00 Medica l declined declined Branch Obesity in Obesity in Disease Active 2019- U nivers 1-17 ity of 00:00: [place] [facility] Nexplanon Nexplanon Disease Active 2018-02 Overview: Univers removal removal 0-22 Placed ity of 00:00: 11/2018 [place] 00 removed Medical 02/2019 Branch Well woman Well woman Disease Active 2019- U nivers exam exam 0-07 ity of 00:00: [place] [address] Medical Branch Routine Routine Disease Active 2019- Univers 9-16 it y of follow-up follow-up 00:00: Eloina hinojosa Medical Branch Anemia, Anemia, Disease Active 2019- Univers 8-26 it y of 00:00: [place] [facility] Anemia, Anemia, Disease Active 2019- Univers 8-26 it y of 00:00: [place] 00 Medical Branch 38 weeks 38 weeks Disease Active Unive rs gestation gestation 8-25 ity of of of 00:00: [place] 00 [facility] Nausea & Nausea & Disease Active Unive rs vomiting vomiting 8-25 ity of 00:00: [place] 00 Medical Branch Encounter Encounter Disease Active Uni vers for for 8-25 ity of induction induction 00:00[place] of labor of labor 00 Medica l Branch Obesity Obesity Disease Active Univers (BMI (BMI 8-12 ity of 30-39.9) 30-39.9) 00:00: [place] 00 Medical Branch Decreased Decreased Disease Active Uni vers 8-12 ity of movements movements 00:00[place] in third in third 00 Medica l trimester trimester Bran ch 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:00: [place] 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 00 [facility] Branch affecting affecting Pain of Pain of Disease Active Univers round round 5-20 ity of ligament ligament 00:00: [place] affecting affecting 00 [facility] , , Br anch antepartum antepartum Vaginal Vaginal Disease Active Univers yeast yeast 3-13 ity of infection infection 00:00[place] Headache Headache Disease Active Unive rs in in 3-04 ity of 00:[place] Nausea and Nausea and Disease Active U nivers vomiting vomiting 2-04 ity of during during 00:00: [place] 00 [facility] Chlamydia Chlamydia Disease Active Overview: Univers trachomati trachomati 1-08 Jhon it y of s s 00:00: negative [place] infection infection 00 repeat at M edical of lower of lower 36 weeks Bran ch genitourin genitourin fiona sites fiona sites Abnormal Abnormal Disease Active Overview: Un indra maternal maternal 1-05 Passed ity of glucose glucose 00:00: early [place] tolerance, tolerance, 00 3hr, will Medical antepartum antepartum need 3hr Branch at 28 weeks -passed Influenza Influenza Disease Active Uni vers vaccinatio vaccinatio 1-04 it y of n declined n declined 00:00: [place] 00 [place] History of History of Disease Active Overview : Univers hypothyroi hypothyroi 1-04 No it y of dism dism 00:00: medicatio [place] 00 n, Medical consider Branch labs second trimester Rubella Rubella Disease Active 2013-02 Univers non-immune non-immune 0-22 it y of status, status, 00:00: [place] antepartum antepartum 00 Me dical Branch Obesity Obesity Disease Active 2013-02 Overview: Univ ers affecting affecting 0-21 Formattin i ty of 00:00: g of this [place] in third in third 00 note Medica l trimester trimester might be Br anch different from the original. 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[employer] Supervisio Supervisio Disease Active 2013-02 U nivers n of n of 0-21 ity of high-risk high-risk 00:00[place] [facility] Nausea and Nausea and Disease Resolve 2013-022018-02-20 2018-02-20 Univers vomiting vomiting d 0-21 00:00:00 21:38:10 it y of in in 00:00: [place] 00 [facility] prior to prior to [place] 22 weeks 22 weeks gestation gestation Allergies, Adverse Reactions, Alerts Allergy Allergy Status Severity Reaction(s) Onset Inactive Treating Comm ents Source Name Type Date Date Clinician No Known DA Active U 2019-0 [facility] [place] [facility] No Known DA Active U 2020-0 [facility]ie 4[facility] [place] [facility] NO KNOWN Drug Active Univers ALLERGIE Class ity of S [facility] Social History Social Habit Start Date Stop Date Quantity Comments Source ASSERTION 2019-11-08 University 00:00:00 [facility] Exposure to Not sure [facility] SARS-CoV-2 [facility] (event) Branch Alcohol intake 2020-08-30 2020-08-30 Current University 00:00:00 00:00:00 non-drinker of [facility] alcohol Branch (finding) Tobacco use and 2020-08-30 2020-08-30 Never used Universit y of exposure 00:00:00 00:00:00 [facility] Sex Ass[birth year] At [birth year] Universit y of 00:00:00 00:00:00 [facility] Smoking Status Start Date Stop Date Source Never smoker [facility] [place] [facility] Medications Ordered Filled Start Stop Current Ordering Indication Dosage Frequency Signature Comments Components Source Medication Medication Date Date Medication? Clinician (SIG) Name Name HYDROcodone Yes 1{tbl} 1 tablet, Univers -acetaminop 5-30 Oral, ity of hen (NORCO 01:56: Q6HPRN, [place] 5) 5-325 mg 22 Starting Medi nba tablet 1 Sat Branch tablet 07/15/20 at 2055, Until Discontinu ed, Routine, Pain (scale 7-10) HYDROcodone 202- No 1{tbl} 1 tablet, Univers -acetaminop 5-30 05-30 Oral, ity of hen (NORCO 01:56: 21:14 Q6HPRN, [place] 5) 5-325 mg 22 :16 Starting Medi nba tablet 1 Sat Branch tablet 07/15/20 at 2055, Until 07/16/20 at 1614, Routine, Pain (scale 7-10) rho(D) Yes 300ug 300 mcg, Univer s immune 5-30 Intramuscu ity of globulin 01:39: lar, ONCE, [place] (RHOGAM) 54 For 1 Medical syringe 300 dose, Branch mcg Conditiona l, Routine rho(D) 2020- No 300ug 300 mcg, Unive rs immune 5-30 05-30 Intramuscu ity of globulin 01:39: 21:14 [place], ONCE, [place] (RHOGAM) 54 :16 For 1 Medical syringe 300 dose, Branch mcg Conditiona l, Routine ondansetron Yes 4mg 4 mg, Slow Univers (ZOFRAN 5-30 IV Push, ity of (PF)) 01:39: Q8HPRN, [place] injection 4 06 Starting Medi nba mg Sat Branch 07/15/20 at 2038, Until Discontinu ed, Routine, Nausea and Vomiting (N/V) simethicone Yes 160mg 160 mg, Un indra (GAS RELIEF 5-30 Oral, ity of (SIMETHICON 01:39: PC+HSPRN, [place] E)) 06 Starting Medical chewable Sat Branch tablet 160 07/15/20 at mg 2038, Until Discontinu ed, Routine, Gas ondansetron 2020- No 4mg 4 mg, Slow Univers (ZOFRAN 5-30 05-30 IV Push, ity of (PF)) 01:39: 21:14 Q8HPRN, [place] injection 4 06 :16 Starting Medi nba mg Sat Branch 07/15/20 at 2038, Until 07/16/20 at 1614, Routine, Nausea and Vomiting (N/V) simethicone 2020- No 160mg 160 mg, U nivers (GAS RELIEF 5-30 05-30 Oral, ity of (SIMETHICON 01:39: 21:14 PC+HSPRN, [place] E)) 06 :16 Starting Medical chewable Sat Branch tablet 160 07/15/20 at mg 2038, Until 07/16/20 at 1614, Routine, Gas acetaminoph 0 Yes 650mg 650 mg, Un indra en 5-30 Oral, ity of (TYLENOL) 01:39: Q6HPRN, [place] tablet 650 05 Starting Medic al mg Sat Branch 07/15/20 at 2038, Until Discontinu ed, Routine, Pain (scale 1-3) diphenhydrA 0 Yes 25mg 25 mg, Univ ers MINE 5-30 Oral, ity of (BENADRYL) 01:39: Q6HPRN, [place] tablet 25 05 Starting Medica l mg Sat Branch 07/15/20 at 2038, Until Discontinu ed, Routine, Sleep, Itching diphenhydrA 0 Yes 25mg 25 mg, IV U nivers MINE-0.9 % 5-30 Piggyback, ity of sod.chlr 01:39: Administer [place] (BENADRYL) 05 over 30 Medica l 25 mg/50 mL Minutes, Bran ch piggyback Q6HPRN, 25 mg Starting 07/15/20 at 2038, Until Discontinu ed, Routine, Itching docusate 0 Yes 240mg 240 mg, Unive rs calcium 5-30 Oral, ity of (SURFAK) 01:39: QDAILYPRN, [place] capsule 240 05 Starting Medi nba mg Sat Branch 07/15/20 at 2038, Until Discontinu ed, Routine, Constipati on magnesium 0 Yes 30mL 30 mL, Univer s hydroxide 5-30 Oral, ity of (MILK OF 01:39: QDAILYPRN, [place] MAGNESIA) 05 Starting Medica l 400 mg/5 mL Sat Branch suspension 07/15/20 at 30 mL 2038, Until Discontinu ed, Routine, Constipati on benzocaine- Yes Topical, Un indra menthol 5-30 PRN, ity of (DERMOPLAST 01:39: Starting [place] ) 20-0.5 % 05 Sat Medical topical 07/15/20 at Branch spray 2038, Until Discontinu ed, Routine, Perineum discomfort acetaminoph 2020- No 650mg 650 mg, U nivers en 07-16- Oral, ity of (TYLENOL) 01:39: 21:14 Q6HPRN, [place] tablet 650 05 :16 Starting Medic al mg Sat Branch 07/15/20 at 2038, Until 07/16/20 at 1614, Routine, Pain (scale 1-3) diphenhydrA 2020- No 25mg 25 mg, Uni vers MINE 07-16 05-30 Oral, ity of (BENADRYL) 01:39: 21:14 Q6HPRN, [place] tablet 25 05 :16 Starting Medica l mg Sat Branch 07/15/20 at 2038, Until 07/16/20 at 1614, Routine, Sleep, Itching diphenhydrA 2020- No 25mg 25 mg, IV Univers MINE-0.9 % 07-16-30 Piggyback, it y of sod.chlr 01:39: 21:14 Administer [place] (BENADRYL) 05 :16 over 30 Medica l 25 mg/50 mL Minutes, Bran ch piggyback Q6HPRN, 25 mg Starting 07/15/20 at 2038, Until 07/16/20 at 1614, Routine, Itching docusate 2020- No 240mg 240 mg, Univ ers calcium 07-16 05-30 Oral, ity of (SURFAK) 01:39: 21:14 QDAILYPRN, [place] capsule 240 05 :16 Starting Medi nba mg Sat Branch 07/15/20 at 2038, Until 07/16/20 at 1614, Routine, Constipati on magnesium 2020- No 30mL 30 mL, Unive rs hydroxide 07-16-30 Oral, ity of (MILK OF 01:39: 21:14 QDAILYPRN, [place] MAGNESIA) 05 :16 Starting Medica l 400 mg/5 mL Sat Branch suspension 07/15/20 at 30 mL 2038, Until 07/16/20 at 1614, Routine, Constipati on benzocaine- 2020- No Topical, U nivers menthol 07-16-30 PRN, ity of (DERMOPLAST 01:39: 21:14 Starting [place] ) 20-0.5 % 05 :16 Sat Medical topical 07/15/20 at Branch spray 2038, Until 07/16/20 at 1614, Routine, Perineum discomfort acetaminoph 2020- No 1000mg 1,000 mg, Univers en ADULT 07-16 IV ity of (OFIRMEV) 01:00: 00:23 Infusion, [place] injection 00 :00 Administer Medi nba 1,000 mg over 15 Branch Minutes, ONCE, 1 dose, 07/15/20 at 2000, Routine, PACU
Indicatio n: Perioperat mark Patient ketorolac 2020- No 30mg 30 mg, Unive rs (TORADOL) 07-16-30 Slow IV ity of injection 00:01: 00:51 Push, [place] 30 mg 12 :00 Q6HPRN, 1 Medical dose, Branch Starting 07/15/20 at 1901, Until 07/15/20 at 1951, Routine, Pain (scale 4-6), PACU
Fa culty member approving Restricted medication : KENNEDY, MOHAMED A Yes [id number] 1{tbl} Take 1 Univers vitamin 5-30 tablet by ity of w/FA tablet 00:00: mouth [place] 00 daily. Medical Branch docusate Yes [id number] 240mg Take 1 U nivers calcium 240 5-30 capsule by it y of mg capsule 00:00: mouth once [place] 00 daily as Medical needed for Branch Constipati on. ferrous 2021-0 Yes [id number] 325mg Take 1 Un indra sulfate 325 5-30 tablet by ity of mg (65 mg 00:00: mouth 2 [place] iron) 00 (two) Medical tablet times Branch daily. ibuprofen Yes [id number] 600mg Take 1 Univers 600 mg 5-30 tablet by ity of tablet 00:00: mouth [place] 00 every 6 Medical (six) Branch hours as needed (Pain). Take with food or milk. docusate Yes [id number] 240mg Take 1 U nivers calcium 240 5-30 capsule by it y of mg capsule 00:00: mouth once [place] 00 daily as Medical needed for Branch Constipati on. ibuprofen Yes [id number] 600mg Take 1 Univers 600 mg 5-30 tablet by ity of tablet 00:00: mouth [place] 00 every 6 Medical (six) Branch hours as needed for Pain (scale 4-6). Yes [id number] 1{tbl} Take 1 Univers vitamin 5-30 tablet by ity of w/FA tablet 00:00: mouth [place] 00 daily. Medical Branch docusate Yes [id number] 240mg Take 1 U nivers calcium 240 5-30 capsule by it y of mg capsule 00:00: mouth once [place] 00 daily as Medical needed for Branch Constipati on. ferrous Yes [id number] 325mg Take 1 Un indra sulfate 325 5-30 tablet by ity of mg (65 mg 00:00: mouth 2 [place] iron) 00 (two) Medical tablet times Branch daily. ibuprofen Yes [id number] 600mg Take 1 Univers 600 mg 5-30 tablet by ity of tablet 00:00: mouth [place] 00 every 6 Medical (six) Branch hours as needed (Pain). Take with food or milk. docusate Yes [id number] 240mg Take 1 U nivers calcium 240 5-30 capsule by it y of mg capsule 00:00: mouth once [place] 00 daily as Medical needed for Branch Constipati on. ibuprofen Yes [id number] 600mg Take 1 Univers 600 mg 5-30 tablet by ity of tablet 00:00: mouth [place] 00 every 6 Medical (six) Branch hours as needed for Pain (scale 4-6). Yes [id number] 1{tbl} Take 1 Univers vitamin 5-30 tablet by ity of w/FA tablet 00:00: mouth [place] 00 daily. Medical Branch docusate Yes [id number] 240mg Take 1 U nivers calcium 240 5-30 capsule by it y of mg capsule 00:00: mouth once [place] 00 daily as Medical needed for Branch Constipati on. ferrous Yes [id number] 325mg Take 1 Un indra sulfate 325 5-30 tablet by ity of mg (65 mg 00:00: mouth 2 [place] iron) 00 (two) Medical tablet times Branch daily. ibuprofen Yes [id number] 600mg Take 1 Univers 600 mg 5-30 tablet by ity of tablet 00:00: mouth [place] 00 every 6 Medical (six) Branch hours as needed (Pain). Take with food or milk. docusate Yes [id number] 240mg Take 1 U nivers calcium 240 5-30 capsule by it y of mg capsule 00:00: mouth once [place] 00 daily as Medical needed for Branch Constipati on. ibuprofen Yes [id number] 600mg Take 1 Univers 600 mg 5-30 tablet by ity of tablet 00:00: mouth [place] 00 every 6 Medical (six) Branch hours as needed for Pain (scale 4-6). 2020- Yes [id number] 1{tbl} Take 1 Univers vitamin 5-30 tablet by ity of w/FA tablet 00:00: mouth [place] 00 daily. Medical Branch docusate Yes [id number] 240mg Take 1 U nivers calcium 240 5-30 capsule by it y of mg capsule 00:00: mouth once [place] 00 daily as Medical needed for Branch Constipati on. ferrous Yes [id number] 325mg Take 1 Un indra sulfate 325 5-30 tablet by ity of mg (65 mg 00:00: mouth 2 [place] iron) 00 (two) Medical tablet times Branch daily. ibuprofen Yes [id number] 600mg Take 1 Univers 600 mg 5-30 tablet by ity of tablet 00:00: mouth [place] 00 every 6 Medical (six) Branch hours as needed (Pain). Take with food or milk. docusate Yes [id number] 240mg Take 1 U nivers calcium 240 5-30 capsule by it y of mg capsule 00:00: mouth once [place] 00 daily as Medical needed for Branch Constipati on. ibuprofen Yes [id number] 600mg Take 1 Univers 600 mg 5-30 tablet by ity of tablet 00:00: mouth [place] 00 every 6 Medical (six) Branch hours as needed for Pain (scale 4-6). Yes [id number] 1{tbl} Take 1 Univers vitamin 5-30 tablet by ity of w/FA tablet 00:00: mouth [place] 00 daily. Medical Branch docusate Yes [id number] 240mg Take 1 U nivers calcium 240 5-30 capsule by it y of mg capsule 00:00: mouth once [place] 00 daily as Medical needed for Branch Constipati on. ferrous Yes [id number] 325mg Take 1 Un indra sulfate 325 5-30 tablet by ity of mg (65 mg 00:00: mouth 2 [place] iron) 00 (two) Medical tablet times Branch daily. ibuprofen Yes [id number] 600mg Take 1 Univers 600 mg 5-30 tablet by ity of tablet 00:00: mouth [place] 00 every 6 Medical (six) Branch hours as needed (Pain). Take with food or milk. docusate Yes [id number] 240mg Take 1 U nivers calcium 240 5-30 capsule by it y of mg capsule 00:00: mouth once [place] 00 daily as Medical needed for Branch Constipati on. ibuprofen Yes [id number] 600mg Take 1 Univers 600 mg 5-30 tablet by ity of tablet 00:00: mouth [place] 00 every 6 Medical (six) Branch hours as needed for Pain (scale 4-6). Yes [id number] 1{tbl} Take 1 Univers vitamin 5-30 tablet by ity of w/FA tablet 00:00: mouth [place] 00 daily. Medical Branch docusate Yes [id number] 240mg Take 1 U nivers calcium 240 5-30 capsule by it y of mg capsule 00:00: mouth once [place] 00 daily as Medical needed for Branch Constipati on. ferrous Yes [id number] 325mg Take 1 Un indra sulfate 325 5-30 tablet by ity of mg (65 mg 00:00: mouth 2 [place] iron) 00 (two) Medical tablet times Branch daily. ibuprofen 0 Yes [id number] 600mg Take 1 Univers 600 mg 5-30 tablet by ity of tablet 00:00: mouth [place] 00 every 6 Medical (six) Branch hours as needed (Pain). Take with food or milk. docusate 0 Yes [id number] 240mg Take 1 U nivers calcium 240 5-30 capsule by it y of mg capsule 00:00: mouth once [place] 00 daily as Medical needed for Branch Constipati on. ibuprofen Yes [id number] 600mg Take 1 Univers 600 mg 5-30 tablet by ity of tablet 00:00: mouth [place] 00 every 6 Medical (six) Branch hours as needed for Pain (scale 4-6). Yes [id number] 1{tbl} Take 1 Univers vitamin 5-30 tablet by ity of w/FA tablet 00:00: mouth [place] 00 daily. Medical Branch docusate Yes [id number] 240mg Take 1 U nivers calcium 240 5-30 capsule by it y of mg capsule 00:00: mouth once [place] 00 daily as Medical needed for Branch Constipati on. ferrous Yes [id number] 325mg Take 1 Un indra sulfate 325 5-30 tablet by ity of mg (65 mg 00:00: mouth 2 [place] iron) 00 (two) Medical tablet times Branch daily. ibuprofen Yes [id number] 600mg Take 1 Univers 600 mg 5-30 tablet by ity of tablet 00:00: mouth [place] 00 every 6 Medical (six) Branch hours as needed (Pain). Take with food or milk. docusate Yes [id number] 240mg Take 1 U nivers calcium 240 5-30 capsule by it y of mg capsule 00:00: mouth once [place] 00 daily as Medical needed for Branch Constipati on. ibuprofen 0 Yes [id number] 600mg Take 1 Univers 600 mg 5-30 tablet by ity of tablet 00:00: mouth [place] 00 every 6 Medical (six) Branch hours as needed for Pain (scale 4-6). 2020-0 Yes [id number] 1{tbl} Take 1 Univers vitamin 5-30 tablet by ity of w/FA tablet 00:00: mouth [place] 00 daily. Medical Branch docusate 2021-0 Yes [id number] 240mg Take 1 U nivers calcium 240 5-30 capsule by it y of mg capsule 00:00: mouth once [place] 00 daily as Medical needed for Branch Constipati on. ferrous 0 Yes [id number] 325mg Take 1 Un indra sulfate 325 5-30 tablet by ity of mg (65 mg 00:00: mouth 2 [place] iron) 00 (two) Medical tablet times Branch daily. ibuprofen Yes [id number] 600mg Take 1 Univers 600 mg 5-30 tablet by ity of tablet 00:00: mouth [place] 00 every 6 Medical (six) Branch hours as needed (Pain). Take with food or milk. docusate Yes [id number] 240mg Take 1 U nivers calcium 240 5-30 capsule by it y of mg capsule 00:00: mouth once [place] 00 daily as Medical needed for Branch Constipati on. ibuprofen Yes [id number] 600mg Take 1 Univers 600 mg 5-30 tablet by ity of tablet 00:00: mouth [place] 00 every 6 Medical (six) Branch hours as needed for Pain (scale 4-6). Yes [id number] 1{tbl} Take 1 Univers vitamin 5-30 tablet by ity of w/FA tablet 00:00: mouth [place] 00 daily. Medical Branch docusate Yes [id number] 240mg Take 1 U nivers calcium 240 5-30 capsule by it y of mg capsule 00:00: mouth once [place] 00 daily as Medical needed for Branch Constipati on. ferrous 0 Yes [id number] 325mg Take 1 Un indra sulfate 325 5-30 tablet by ity of mg (65 mg 00:00: mouth 2 [place] iron) 00 (two) Medical tablet times Branch daily. ibuprofen 0 Yes [id number] 600mg Take 1 [facility] 600 mg 5-30 tablet by ity of tablet 00:00: mouth [place] 00 every 6 Medical (six) Branch hours as needed (Pain). Take with food or milk. docusate 0 Yes [id number] 240mg Take 1 U nivers calcium 240 5-30 capsule by it y of mg capsule 00:00: mouth once [place] 00 daily as Medical needed for Branch Constipati on. ibuprofen Yes [id number] 600mg Take 1 [facility] 600 mg 5-30 tablet by ity of tablet 00:00: mouth [place] 00 every 6 Medical (six) Branch hours as needed for Pain (scale 4-6). 2020- Yes [id number] 1{tbl} Take 1 [facility] vitamin 5-30 tablet by ity of w/FA tablet 00:00: mouth [place] 00 daily. Medical Branch docusate Yes [id number] 240mg Take 1 U nivers calcium 240 5-30 capsule by it y of mg capsule 00:00: mouth once [place] 00 daily as Medical needed for Branch Constipati on. ferrous Yes [id number] 325mg Take 1 Un indra sulfate 325 5-30 tablet by ity of mg (65 mg 00:00: mouth 2 [place] iron) 00 (two) Medical tablet times Branch daily. ibuprofen Yes [id number] 600mg Take 1 [facility] 600 mg 5-30 tablet by ity of tablet 00:00: mouth [place] 00 every 6 Medical (six) Branch hours as needed (Pain). Take with food or milk. docusate Yes [id number] 240mg Take 1 U nivers calcium 240 5-30 capsule by it y of mg capsule 00:00: mouth once [place] 00 daily as Medical needed for Branch Constipati on. ibuprofen Yes [id number] 600mg Take 1 [facility] 600 mg 5-30 tablet by ity of tablet 00:00: mouth [place] 00 every 6 Medical (six) Branch hours as needed for Pain (scale 4-6). Yes [id number] 1{tbl} Take 1 [facility] vitamin 5-30 tablet by ity of w/FA tablet 00:00: mouth [place] 00 daily. Medical Branch docusate Yes [id number] 240mg Take 1 U nivers calcium 240 5-30 capsule by it y of mg capsule 00:00: mouth once [place] 00 daily as Medical needed for Branch Constipati on. ferrous Yes [id number] 325mg Take 1 Un indra sulfate 325 5-30 tablet by ity of mg (65 mg 00:00: mouth 2 [place] iron) 00 (two) Medical tablet times Branch daily. ibuprofen Yes [id number] 600mg Take 1 [facility] 600 mg 5-30 tablet by ity of tablet 00:00: mouth [place] 00 every 6 Medical (six) Branch hours as needed (Pain). Take with food or milk. docusate Yes [id number] 240mg Take 1 U nivers calcium 240 5-30 capsule by it y of mg capsule 00:00: mouth once [place] 00 daily as Medical needed for Branch Constipati on. ibuprofen Yes [id number] 600mg Take 1 [facility] 600 mg 5-30 tablet by ity of tablet 00:00: mouth [place] 00 every 6 Medical (six) Branch hours as needed for Pain (scale 4-6). Yes [id number] 1{tbl} Take 1 [facility] vitamin 5-30 tablet by ity of w/FA tablet 00:00: mouth [place] 00 daily. Medical Branch docusate Yes [id number] 240mg Take 1 U nivers calcium 240 5-30 capsule by it y of mg capsule 00:00: mouth once [place] 00 daily as Medical needed for Branch Constipati on. ferrous Yes [id number] 325mg Take 1 Un indra sulfate 325 5-30 tablet by ity of mg (65 mg 00:00: mouth 2 [place] iron) 00 (two) Medical tablet times Branch daily. ibuprofen Yes [id number] 600mg Take 1 [facility] 600 mg 5-30 tablet by ity of tablet 00:00: mouth [place] 00 every 6 Medical (six) Branch hours as needed (Pain). Take with food or milk. docusate Yes [id number] 240mg Take 1 U nivers calcium 240 5-30 capsule by it y of mg capsule 00:00: mouth once [place] 00 daily as Medical needed for Branch Constipati on. ibuprofen Yes [id number] 600mg Take 1 [facility] 600 mg 5-30 tablet by ity of tablet 00:00: mouth [place] 00 every 6 Medical (six) Branch hours as needed for Pain (scale 4-6). 2020-0 Yes [id number] 1{tbl} Take 1 [facility] vitamin 5-30 tablet by ity of w/FA tablet 00:00: mouth [place] 00 daily. Medical Branch docusate Yes [id number] 240mg Take 1 U nivers calcium 240 5-30 capsule by it y of mg capsule 00:00: mouth once [place] 00 daily as Medical needed for Branch Constipati on. ferrous Yes [id number] 325mg Take 1 Un indra sulfate 325 5-30 tablet by ity of mg (65 mg 00:00: mouth 2 [place] iron) 00 (two) Medical tablet times Branch daily. ibuprofen Yes [id number] 600mg Take 1 [facility] 600 mg 5-30 tablet by ity of tablet 00:00: mouth [place] 00 every 6 Medical (six) Branch hours as needed (Pain). Take with food or milk. docusate Yes [id number] 240mg Take 1 U nivers calcium 240 5-30 capsule by it y of mg capsule 00:00: mouth once [place] 00 daily as Medical needed for Branch Constipati on. ibuprofen Yes [id number] 600mg Take 1 [facility] 600 mg 5-30 tablet by ity of tablet 00:00: mouth [place] 00 every 6 Medical (six) Branch hours as needed for Pain (scale 4-6). Yes [id number] 1{tbl} Take 1 [facility] vitamin 5-30 tablet by ity of w/FA tablet 00:00: mouth [place] 00 daily. Medical Branch docusate Yes [id number] 240mg Take 1 U nivers calcium 240 5-30 capsule by it y of mg capsule 00:00: mouth once [place] 00 daily as Medical needed for Branch Constipati on. ferrous Yes [id number] 325mg Take 1 Un indra sulfate 325 5-30 tablet by ity of mg (65 mg 00:00: mouth 2 [place] iron) 00 (two) Medical tablet times Branch daily. ibuprofen Yes [id number] 600mg Take 1 [facility] 600 mg 5-30 tablet by ity of tablet 00:00: mouth [place] 00 every 6 Medical (six) Branch hours as needed (Pain). Take with food or milk. docusate Yes [id number] 240mg Take 1 U nivers calcium 240 5-30 capsule by it y of mg capsule 00:00: mouth once [place] 00 daily as Medical needed for Branch Constipati on. ibuprofen Yes [id number] 600mg Take 1 [facility] 600 mg 5-30 tablet by ity of tablet 00:00: mouth [place] 00 every 6 Medical (six) Branch hours as needed for Pain (scale 4-6). Yes [id number] 1{tbl} Take 1 [facility] vitamin 5-30 tablet by ity of w/FA tablet 00:00: mouth [place] 00 daily. Medical Branch docusate Yes [id number] 240mg Take 1 U nivers calcium 240 5-30 capsule by it y of mg capsule 00:00: mouth once [place] 00 daily as Medical needed for Branch Constipati on. ferrous Yes [id number] 325mg Take 1 Un indra sulfate 325 5-30 tablet by ity of mg (65 mg 00:00: mouth 2 [place] iron) 00 (two) Medical tablet times Branch daily. ibuprofen Yes [id number] 600mg Take 1 [facility] 600 mg 5-30 tablet by ity of tablet 00:00: mouth [place] 00 every 6 Medical (six) Branch hours as needed (Pain). Take with food or milk. docusate Yes [id number] 240mg Take 1 U nivers calcium 240 5-30 capsule by it y of mg capsule 00:00: mouth once [place] 00 daily as Medical needed for Branch Constipati on. ibuprofen Yes [id number] 600mg Take 1 [facility] 600 mg 5-30 tablet by ity of tablet 00:00: mouth [place] 00 every 6 Medical (six) Branch hours as needed for Pain (scale 4-6). acetaminoph 2021- No [id number] 650mg Take 2 [facility] en 325 mg 5-30 05-31 tablets by ity of tablet 00:00: 04:59 mouth [place] 00 :00 every 6 Medical (six) Branch hours as needed for Pain (scale 1-3). acetaminoph 2021- No [id number] 650mg Take 2 [facility] en 325 mg 5-30 05-31 tablets by ity of tablet 00:00: 04:59 mouth [place] 00 :00 every 6 Medical (six) Branch hours as needed for Pain (scale 1-3). acetaminoph 2021- No [id number] 650mg Take 2 [facility] en 325 mg 5-30 05-31 tablets by ity of tablet 00:00: 04:59 mouth [place] 00 :00 every 6 Medical (six) Branch hours as needed for Pain (scale 1-3). acetaminoph 2021- No [id number] 650mg Take 2 [facility] en 325 mg 5-30 05-31 tablets by ity of tablet 00:00: 04:59 mouth [place] 00 :00 every 6 Medical (six) Branch hours as needed for Pain (scale 1-3). acetaminoph 2021- No [id number] 650mg Take 2 [facility] en 325 mg 5-30 05-31 tablets by ity of tablet 00:00: 04:59 mouth [place] 00 :00 every 6 Medical (six) Branch hours as needed for Pain (scale 1-3). acetaminoph 2021- No [id number] 650mg Take 2 [facility] en 325 mg 5-30 05-31 tablets by ity of tablet 00:00: 04:59 mouth [place] 00 :00 every 6 Medical (six) Branch hours as needed for Pain (scale 1-3). acetaminoph 2021- No [id number] 650mg Take 2 [facility] en 325 mg 5-30 05-31 tablets by ity of tablet 00:00: 04:59 mouth [place] 00 :00 every 6 Medical (six) Branch hours as needed for Pain (scale 1-3). acetaminoph 2021- No [id number] 650mg Take 2 [facility] en 325 mg 5-30 05-31 tablets by ity of tablet 00:00: 04:59 mouth [place] 00 :00 every 6 Medical (six) Branch hours as needed for Pain (scale 1-3). acetaminoph 2021- No [id number] 650mg Take 2 [facility] en 325 mg 5-30 05-31 tablets by ity of tablet 00:00: 04:59 mouth [place] 00 :00 every 6 Medical (six) Branch hours as needed for Pain (scale 1-3). acetaminoph 2021- No [id number] 650mg Take 2 [facility] en 325 mg 5-30 05-31 tablets by ity of tablet 00:00: 04:59 mouth [place] 00 :00 every 6 Medical (six) Branch hours as needed for Pain (scale 1-3). acetaminoph 2021- No [id number] 650mg Take 2 [facility] en 325 mg 5-30 05-31 tablets by ity of tablet 00:00: 04:59 mouth [place] 00 :00 every 6 Medical (six) Branch hours as needed for Pain (scale 1-3). acetaminoph 2021- No [id number] 650mg Take 2 [facility] en 325 mg 5-30 05-31 tablets by ity of tablet 00:00: 04:59 mouth [place] 00 :00 every 6 Medical (six) Branch hours as needed for Pain (scale 1-3). acetaminoph 2021- No [id number] 650mg Take 2 [facility] en 325 mg 5-30 05-31 tablets by ity of tablet 00:00: 04:59 mouth [place] 00 :00 every 6 Medical (six) Branch hours as needed for Pain (scale 1-3). acetaminoph 2021- No [id number] 650mg Take 2 [facility] en 325 mg 5-30 05-31 tablets by ity of tablet 00:00: 04:59 mouth [place] 00 :00 every 6 Medical (six) Branch hours as needed for Pain (scale 1-3). acetaminoph 2021- No [id number] 650mg Take 2 [facility] en 325 mg 5-30 05-31 tablets by ity of tablet 00:00: 04:59 mouth [place] 00 :00 every 6 Medical (six) Branch hours as needed for Pain (scale 1-3). bupivacaine Yes PRN, Univer s (preserv 07-15 Starting ity of free) 23:06: [facility] 1806, Branch % (2.5 Until mg/mL) Discontinu injection ed, Routine, Intra-op bupivacaine 2020- No PRN, Unive rs (preserv 07-15 Starting ity of free) 23:06: 21:14 [facility] ([facility] 00 [facility] 0.25 1806, Branch % (2.5 Until Sun mg/mL) 07/16/20 at injection 1614, Routine, Intra-op ibuprofen Yes 600mg 600 mg, Univ ers (IBU) 07-15 Oral, ity of tablet 600 19:22: Q6HPRN, [place] mg 05 Starting Medical Sat Branch 07/15/20 at 1422, Until Discontinu ed, Routine, Pain (scale 4-6) ibuprofen 2020- No 600mg 600 mg, Uni vers (IBU) 07-15 Oral, ity of tablet 600 19:22: 21:14 Q6HPRN, [place] mg 05 :16 Starting Medical [facility] 07/15/20 at 1422, Until 07/16/20 at 1614, Routine, Pain (scale 4-6) ibuprofen 2020- No 600mg 600 mg, Uni vers (IBU) 07-15 Oral, ity of tablet 600 19:22: 19:25 ONCE, 1 [place] mg 00 :00 dose, Sat Medical 07/15/20 at Branch 1430, Routine ondansetron 2020- No 4mg 4 mg, Slow Univers (ZOFRAN 07-15 IV Push, ity of (PF)) 15:54: 15:56 ONCE, 1 [place] injection 4 00 :00 dose, Sat Med ical mg 07/15/20 at Branch 1100, Routine LR 1000 mL 2020- No 999mL/h 999 mL/hr, Univers + oxytocin 07-15 IV ity of 20 units IV 14:45: 17:23 Infusion, [place] Solution 00 :00 ONCE, Sat Medica l 07/15/20 at Branch 0945, For 1 dose
In fuse 999 mL /hr & amp;nbsp;o devyn 30 minutes and then decrease rate to 125 mL/hr for the remainder.
pantoprazol Yes 40mg 40 mg, Univ ers e 07-15 Oral, ity of (PROTONIX) 14:00: DAILY, [place] EC tablet 00 First dose Medi nba 40 mg on Sat Branch 07/15/20 at 0900, Until Discontinu ed, Routine pantoprazol 2020- No 40mg 40 mg, Uni vers e 07-15 Oral, ity of (PROTONIX) 14:00: 21:14 DAILY, [place] EC tablet 00 :16 First dose Medi nba 40 mg on [facility] Branch 07/15/20 at 0900, Until Discontinu ed, Routine lactated 2020- No 500mL at 999 Unive rs ringers IV 5-29 05-29 mL/hr, 500 it y of infusion 08:30: 07:48 mL, IV [place] 500 mL 00 :00 Infusion, Medical ONCE, 1 Branch dose, 07/15/20 at 0330, Routine sodium 2020- No 30mL 30 mL, Univers citrate-cit 07-15 Oral, ity of gloria acid 07:27: 22:30 PRE-PROCED [place] (BICITRA) 28 :00 URE ONCE, Medic al 500-334 1 dose, Branch mg/5 mL Starting solution 30 Sat mL 07/15/20 at 0227, Until Discontinu ed, Routine, Surgery/Pr ocedure butalbital- 2020- No 2{tbl} 2 tablet, Univers acetaminoph 07-15 Oral, ity of en-caff 07:15: 06:20 ONCE, 1 [place] (ESGIC) 00 :00 dose, Sat Medical 50-325-40 07/15/20 at Bran ch mg tablet 2 5, tablet Routine D5W-LR IV 2020- No 1000mL at 125 Uni vers infusion 07-15 05- mL/hr, IV ity o f 1,000 mL 04:00: 01:39 Infusion, [place] 00 :54 CONTINUOUS Medical , Starting Branch 07/14/20 at 2300, Until 07/15/20 at 2038, Routine Sliding 2020- No Subcutaneo Uni vers Scale 07-15 0530 us, ity of Insulin - 03:58: 01:39 SEE-INSTRU [place] Regular + 17 :54 CTIONS, Medical Fsbg Starting Branch Testing Fri07/14/20 at 2258, Until 07/15/20 at 2038, Routine sodium 2020- No 30mL 30 mL, Univers citrate-cit 07-15 Oral, ity of gloria acid 03:57: 07:47 PRE-PROCED [place] (BICITRA) 09 :00 URE ONCE, Medic al 500-334 1 dose, Branch mg/5 mL Starting solution 30 Fri mL 07/14/20 at 2257, Until Discontinu ed, Routine, Surgery/Pr ocedure metroNIDAZO Yes [id number] 500mg Take 1 Univers LE 500 mg 5-23 9109 tablet by ity o f tablet 00:00: mouth 2 [place] 00 (two) Medical times Branch daily. metroNIDAZO 2020- No [id number] 500mg Take 1 [facility] LE 500 mg 5-23 05-30 9109 tablet by ity of tablet 00:00: 00:00 mouth 2 [place] 00 :00 (two) Medical times Branch daily. metroNIDAZO 0 2020- No [id number] 500mg Take 1 [facility] LE 500 mg 5-23 05-30 9109 tablet by ity of tablet 00:00: 00:00 mouth 2 [place] 00 :00 (two) Medical times Branch daily. proMETHazin Yes Nausea/vomi 25mg Take 1 Univers e 25 mg 5-06 ting in tablet by ity of tablet 00:00: mouth [place] 00 every 6 Medical (six) Branch hours as needed for Nausea and Vomiting (N/V). glyBURIDE Yes [id number] Take 1 tab [facility] 2.5 mg 5-06 PO AC ity of tablet 00:00: breakfast [place] 00 and 1 tab Medical PO HS with Branch snack pantoprazol Yes [id number] 40mg Take 1 Univers e 5-06 tablet by ity of (PROTONIX) 00:00: mouth [place] 40 mg EC 00 daily. Medical tablet Branch proMETHazin Yes [id number] 25mg Take 1 Univers e 25 mg 5-06 tablet by ity of tablet 00:00: mouth [place] 00 every 6 Medical (six) Branch hours as needed for Nausea and Vomiting (N/V). glyBURIDE 0 Yes [id number] Take 1 tab [facility] 2.5 mg 5-06 PO AC ity of tablet 00:00: breakfast [place] 00 and 1 tab Medical PO HS with Branch snack pantoprazol 0 Yes [id number] 40mg Take 1 Univers e 5-06 tablet by ity of (PROTONIX) 00:00: mouth [place] 40 mg EC 00 daily. Medical tablet Branch proMETHazin 0 Yes [id number] 25mg Take 1 Univers e 25 mg 5-06 tablet by ity of tablet 00:00: mouth [place] 00 every 6 Medical (six) Branch hours as needed for Nausea and Vomiting (N/V). glyBURIDE Yes [id number] Take 1 tab [facility] 2.5 mg 5-06 PO AC ity of tablet 00:00: breakfast [place] 00 and 1 tab Medical PO HS with Branch snack pantoprazol 0 Yes [id number] 40mg Take 1 Univers e 5-06 tablet by ity of (PROTONIX) 00:00: mouth [place] 40 mg EC 00 daily. Medical tablet Branch proMETHazin 0 Yes [id number] 25mg Take 1 Univers e 25 mg 5-06 tablet by ity of tablet 00:00: mouth [place] 00 every 6 Medical (six) Branch hours as needed for Nausea and Vomiting (N/V). glyBURIDE Yes [id number] Take 1 tab [facility] 2.5 mg 5-06 PO AC ity of tablet 00:00: breakfast [place] 00 and 1 tab Medical PO HS with Branch snack pantoprazol 0 Yes [id number] 40mg Take 1 Univers e 5-06 tablet by ity of (PROTONIX) 00:00: mouth [place] 40 mg EC 00 daily. Medical tablet Branch proMETHazin Yes [id number] 25mg Take 1 Univers e 25 mg 5-06 tablet by ity of tablet 00:00: mouth [place] 00 every 6 Medical (six) Branch hours as needed for Nausea and Vomiting (N/V). glyBURIDE 0 Yes [id number] Take 1 tab [facility] 2.5 mg 5-06 PO AC ity of tablet 00:00: breakfast [place] 00 and 1 tab Medical PO HS with Branch snack pantoprazol 0 Yes [id number] 40mg Take 1 Univers e 5-06 tablet by ity of (PROTONIX) 00:00: mouth [place] 40 mg EC 00 daily. Medical tablet Branch proMETHazin 0 Yes [id number] 25mg Take 1 Univers e 25 mg 5-06 tablet by ity of tablet 00:00: mouth [place] 00 every 6 Medical (six) Branch hours as needed for Nausea and Vomiting (N/V). glyBURIDE 0 Yes [id number] Take 1 tab [facility] 2.5 mg 5-06 PO AC ity of tablet 00:00: breakfast [place] 00 and 1 tab Medical PO HS with Branch snack pantoprazol 2020-0 Yes [id number] 40mg Take 1 Univers e 5-06 tablet by ity of (PROTONIX) 00:00: mouth [place] 40 mg EC 00 daily. Medical tablet Branch proMETHazin 0 Yes [id number] 25mg Take 1 Univers e 25 mg 5-06 tablet by ity of tablet 00:00: mouth [place] 00 every 6 Medical (six) Branch hours as needed for Nausea and Vomiting (N/V). glyBURIDE 0 Yes [id number] Take 1 tab [facility] 2.5 mg 5-06 PO AC ity of tablet 00:00: breakfast [place] 00 and 1 tab Medical PO HS with Branch snack pantoprazol 0 Yes [id number] 40mg Take 1 Univers e 5-06 tablet by ity of (PROTONIX) 00:00: mouth [place] 40 mg EC 00 daily. Medical tablet Branch proMETHazin Yes [id number] 25mg Take 1 Univers e 25 mg 5-06 tablet by ity of tablet 00:00: mouth [place] 00 every 6 Medical (six) Branch hours as needed for Nausea and Vomiting (N/V). glyBURIDE Yes [id number] Take 1 tab Univers 2.5 mg 5-06 PO AC ity of tablet 00:00: breakfast [place] 00 and 1 tab Medical PO HS with Branch snack pantoprazol 0 Yes [id number] 40mg Take 1 Univers e 5-06 tablet by ity of (PROTONIX) 00:00: mouth [place] 40 mg EC 00 daily. Medical tablet Branch proMETHazin Yes [id number] 25mg Take 1 Univers e 25 mg 5-06 tablet by ity of tablet 00:00: mouth [place] 00 every 6 Medical (six) Branch hours as needed for Nausea and Vomiting (N/V). glyBURIDE 0 Yes [id number] Take 1 tab [facility] 2.5 mg 5-06 PO AC ity of tablet 00:00: breakfast [place] 00 and 1 tab Medical PO HS with Branch snack pantoprazol 0 Yes [id number] 40mg Take 1 Univers e 5-06 tablet by ity of (PROTONIX) 00:00: mouth [place] 40 mg EC 00 daily. Medical tablet Branch proMETHazin 0 Yes [id number] 25mg Take 1 Univers e 25 mg 5-06 tablet by ity of tablet 00:00: mouth [place] 00 every 6 Medical (six) Branch hours as needed for Nausea and Vomiting (N/V). glyBURIDE 0 Yes [id number] Take 1 tab [facility] 2.5 mg 5-06 PO AC ity of tablet 00:00: breakfast [place] 00 and 1 tab Medical PO HS with Branch snack pantoprazol 2020-0 Yes [id number] 40mg Take 1 Univers e 5-06 tablet by ity of (PROTONIX) 00:00: mouth [place] 40 mg EC 00 daily. Medical tablet Branch proMETHazin 2020-0 Yes [id number] 25mg Take 1 [facility] e 25 mg 5-06 tablet by ity of tablet 00:00: mouth [place] 00 every 6 Medical (six) Branch hours as needed for Nausea and Vomiting (N/V). glyBURIDE 2020-0 Yes [id number] Take 1 tab [facility] 2.5 mg 5-06 PO AC ity of tablet 00:00: breakfast [place] 00 and 1 tab Medical PO HS with Branch snack pantoprazol 2020-0 Yes [id number] 40mg Take 1 Univers e 5-06 tablet by ity of (PROTONIX) 00:00: mouth [place] 40 mg EC 00 daily. Medical tablet Branch proMETHazin 0 Yes [id number] 25mg Take 1 Univers e 25 mg 5-06 tablet by ity of tablet 00:00: mouth [place] 00 every 6 Medical (six) Branch hours as needed for Nausea and Vomiting (N/V). glyBURIDE 2020-0 Yes [id number] Take 1 tab [facility] 2.5 mg 5-06 PO AC ity of tablet 00:00: breakfast [place] 00 and 1 tab Medical PO HS with Branch snack pantoprazol 2020-0 Yes [id number] 40mg Take 1 Univers e 5-06 tablet by ity of (PROTONIX) 00:00: mouth [place] 40 mg EC 00 daily. Medical tablet Branch proMETHazin 2020-0 Yes [id number] 25mg Take 1 Univers e 25 mg 5-06 tablet by ity of tablet 00:00: mouth [place] 00 every 6 Medical (six) Branch hours as needed for Nausea and Vomiting (N/V). glyBURIDE 2020-0 Yes [id number] Take 1 tab [facility] 2.5 mg 5-06 PO AC ity of tablet 00:00: breakfast [place] 00 and 1 tab Medical PO HS with Branch snack pantoprazol 2020-0 Yes [id number] 40mg Take 1 Univers e 5-06 tablet by ity of (PROTONIX) 00:00: mouth [place] 40 mg EC 00 daily. Medical tablet Branch proMETHazin Yes [id number] 25mg Take 1 Univers e 25 mg 5-06 tablet by ity of tablet 00:00: mouth [place] 00 every 6 Medical (six) Branch hours as needed for Nausea and Vomiting (N/V). glyBURIDE Yes Oral Take 1 tab Un indra 2.5 mg 5-06 hypoglycemi PO AC ity o f tablet 00:00: c breakfast [place] 00 controlled and 1 tab Medi nba White PO HS with Branch classificat snack ion A2 gestational diabetes mellitus (GDM) pantoprazol Yes Heartburn 40mg Take 1 Univers e 5-06 during tablet by ity of (PROTONIX) 00:00: mouth [place] 40 mg EC 00 in third daily. Medic al tablet trimester Branch glyBURIDE 2020- No [id number] Take 1 tab [facility] 2.5 mg 5-06 05-30 PO AC ity of tablet 00:00: 00:00 breakfast [place] 00 :00 and 1 tab Medical PO HS with Branch snack pantoprazol 2020- No [id number] 40mg Take 1 Univers e 5-06 05-30 tablet by ity of (PROTONIX) 00:00: 00:00 mouth [place] 40 mg EC 00 :00 daily. Medical tablet Branch proMETHazin 2020- No [id number] 25mg Take 1 Univers e 25 mg 5-06 05-30 tablet by ity of tablet 00:00: 00:00 mouth [place] 00 :00 every 6 Medical (six) Branch hours as needed for Nausea and Vomiting (N/V). glyBURIDE 2020- No [id number] Take 1 tab Univers 2.5 mg 5-06 05-30 PO AC ity of tablet 00:00: 00:00 breakfast [place] 00 :00 and 1 tab Medical PO HS with Branch snack pantoprazol 2020- No [id number] 40mg Take 1 Univers e 5-06 05-30 tablet by ity of (PROTONIX) 00:00: 00:00 mouth [place] 40 mg EC 00 :00 daily. Medical tablet Branch proMETHazin 2020- No [id number] 25mg Take 1 Univers e 25 mg 5-06 05-30 tablet by ity of tablet 00:00: 00:00 mouth [place] 00 :00 every 6 Medical (six) Branch hours as needed for Nausea and Vomiting (N/V). Blood-Gluco Yes Diet Check Unive rs se Meter 3-18 controlled blood ity of (ONETOUCH 00:00: gestational glucose 4x [place] ULTRA2 00 diabetes dialy Medical METER) Kit mellitus Branc h (GDM) in second trimester Lancets Yes Diet Check Univers (ONETOUCH 3-18 controlled blood ity of ULTRASOFT 00:00: gestational glucose 4x [place] LANCETS) 00 diabetes daily Medica l Misc mellitus Branch (GDM) in second trimester blood sugar Yes Diet Check Unive rs diagnostic 3-18 controlled blood it y of (ONETOUCH 00:00: gestational glucose 4x [place] VERIO TEST 00 diabetes daily Medi nba STRIPS) mellitus Branch strip (GDM) in second trimester Blood-Gluco Yes [id number] Check U nivers se Meter 3-18 blood ity of (ONETOUCH 00:00: glucose 4x [place] ULTRA2 00 dialy Medical METER) Kit Branch Lancets Yes [id number] Check Unive rs (ONETOUCH 3-18 blood ity of ULTRASOFT 00:00: glucose 4x [place] LANCETS) 00 daily Medical Misc Branch blood sugar Yes [id number] Check U nivers diagnostic 3-18 blood ity of (ONETOUCH 00:00: glucose 4x [place] VERIO TEST 00 daily Medical STRIPS) Branch strip Blood-Gluco Yes [id number] Check U nivers se Meter 3-18 blood ity of (ONETOUCH 00:00: glucose 4x [place] ULTRA2 00 dialy Medical METER) Kit Branch Lancets Yes [id number] Check Unive rs (ONETOUCH 3-18 blood ity of ULTRASOFT 00:00: glucose 4x [place] LANCETS) 00 daily Medical Misc Branch blood sugar Yes [id number] Check U nivers diagnostic 3-18 blood ity of (ONETOUCH 00:00: glucose 4x [place] VERIO TEST 00 daily Medical STRIPS) Branch strip Blood-Gluco Yes [id number] Check U nivers se Meter 3-18 blood ity of (ONETOUCH 00:00: glucose 4x [place] ULTRA2 00 dialy Medical METER) Kit Branch Lancets Yes [id number] Check Unive rs (ONETOUCH 3-18 blood ity of ULTRASOFT 00:00: glucose 4x [place] LANCETS) 00 daily Medical [facility] Branch blood sugar Yes [id number] Check U nivers diagnostic 3-18 blood ity of (ONETOUCH 00:00: glucose 4x [place] VERIO TEST 00 daily Medical STRIPS) Branch strip Blood-Gluco Yes [id number] Check U nivers se Meter 3-18 blood ity of (ONETOUCH 00:00: glucose 4x [place] ULTRA2 00 dialy Medical METER) Kit Branch Lancets Yes [id number] Check Unive rs (ONETOUCH 3-18 blood ity of ULTRASOFT 00:00: glucose 4x [place] LANCETS) 00 daily Medical [facility] Branch blood sugar Yes [id number] Check U nivers diagnostic 3-18 blood ity of (ONETOUCH 00:00: glucose 4x [place] VERIO TEST 00 daily Medical STRIPS) Branch strip Blood-Gluco Yes [id number] Check U nivers se Meter 3-18 blood ity of (ONETOUCH 00:00: glucose 4x [place] ULTRA2 00 dialy Medical METER) Kit Branch Lancets Yes [id number] Check Unive rs (ONETOUCH 3-18 blood ity of ULTRASOFT 00:00: glucose 4x [place] LANCETS) 00 daily Medical [facility] Branch blood sugar Yes [id number] Check U nivers diagnostic 3-18 blood ity of (ONETOUCH 00:00: glucose 4x [place] VERIO TEST 00 daily Medical STRIPS) Branch strip Blood-Gluco Yes [id number] Check U nivers se Meter 3-18 blood ity of (ONETOUCH 00:00: glucose 4x [place] ULTRA2 00 dialy Medical METER) Kit Branch Lancets Yes [id number] Check Unive rs (ONETOUCH 3-18 blood ity of ULTRASOFT 00:00: glucose 4x [place] LANCETS) 00 daily Medical [facility] Branch blood sugar 2021-0 Yes [id number] Check U nivers diagnostic 3-18 blood ity of (ONETOUCH 00:00: glucose 4x [place] VERIO TEST 00 daily Medical STRIPS) Branch strip Blood-Gluco Yes [id number] Check U nivers se Meter 3-18 blood ity of (ONETOUCH 00:00: glucose 4x [place] ULTRA2 00 dialy Medical METER) Kit Branch Lancets Yes [id number] Check Unive rs (ONETOUCH 3-18 blood ity of ULTRASOFT 00:00: glucose 4x [place] LANCETS) 00 daily Medical Misc Branch blood sugar 0 Yes [id number] Check U nivers diagnostic 3-18 blood ity of (ONETOUCH 00:00: glucose 4x [place] VERIO TEST 00 daily Medical STRIPS) Branch strip Blood-Gluco Yes [id number] Check U nivers se Meter 3-18 blood ity of (ONETOUCH 00:00: glucose 4x [place] ULTRA2 00 dialy Medical METER) Kit Branch Lancets Yes [id number] Check Unive rs (ONETOUCH 3-18 blood ity of ULTRASOFT 00:00: glucose 4x [place] LANCETS) 00 daily Medical Misc Branch blood sugar 0 Yes [id number] Check U nivers diagnostic 3-18 blood ity of (ONETOUCH 00:00: glucose 4x [place] VERIO TEST 00 daily Medical STRIPS) Branch strip Blood-Gluco Yes [id number] Check U nivers se Meter 3-18 blood ity of (ONETOUCH 00:00: glucose 4x [place] ULTRA2 00 dialy Medical METER) Kit Branch Lancets Yes [id number] Check Unive rs (ONETOUCH 3-18 blood ity of ULTRASOFT 00:00: glucose 4x [place] LANCETS) 00 daily Medical Misc Branch blood sugar 0 Yes [id number] Check U nivers diagnostic 3-18 blood ity of (ONETOUCH 00:00: glucose 4x [place] VERIO TEST 00 daily Medical STRIPS) Branch strip Blood-Gluco 0 Yes [id number] Check U nivers se Meter 3-18 blood ity of (ONETOUCH 00:00: glucose 4x [place] ULTRA2 00 dialy Medical METER) Kit Branch Lancets Yes [id number] Check Unive rs (ONETOUCH 3-18 blood ity of ULTRASOFT 00:00: glucose 4x [place] LANCETS) 00 daily Medical Misc Branch blood sugar 0 Yes [id number] Check U nivers diagnostic 3-18 blood ity of (ONETOUCH 00:00: glucose 4x [place] VERIO TEST 00 daily Medical STRIPS) Branch strip Blood-Gluco Yes [id number] Check U nivers se Meter 3-18 blood ity of (ONETOUCH 00:00: glucose 4x [place] ULTRA2 00 dialy Medical METER) Kit Branch Lancets Yes [id number] Check Unive rs (ONETOUCH 3-18 blood ity of ULTRASOFT 00:00: glucose 4x [place] LANCETS) 00 daily Medical Mis Branch blood sugar Yes [id number] Check U nivers diagnostic 3-18 blood ity of (ONETOUCH 00:00: glucose 4x [place] VERIO TEST 00 daily Medical STRIPS) Branch strip Blood-Gluco Yes [id number] Check U nivers se Meter 3-18 blood ity of (ONETOUCH 00:00: glucose 4x [place] ULTRA2 00 dialy Medical METER) Kit Branch Lancets Yes [id number] Check Unive rs (ONETOUCH 3-18 blood ity of ULTRASOFT 00:00: glucose 4x [place] LANCETS) 00 daily Medical Mis Branch blood sugar Yes [id number] Check U nivers diagnostic 3-18 blood ity of (ONETOUCH 00:00: glucose 4x [place] VERIO TEST 00 daily Medical STRIPS) Branch strip Blood-Gluco Yes [id number] Check U nivers se Meter 3-18 blood ity of (ONETOUCH 00:00: glucose 4x [place] ULTRA2 00 dialy Medical METER) Kit Branch Lancets Yes [id number] Check Unive rs (ONETOUCH 3-18 blood ity of ULTRASOFT 00:00: glucose 4x [place] LANCETS) 00 daily Medical Mis Branch blood sugar Yes [id number] Check U nivers diagnostic 3-18 blood ity of (ONETOUCH 00:00: glucose 4x [place] VERIO TEST 00 daily Medical STRIPS) Branch strip Blood-Gluco Yes [id number] Check U nivers se Meter 3-18 blood ity of (ONETOUCH 00:00: glucose 4x [place] ULTRA2 00 dialy Medical METER) Kit Branch Lancets Yes [id number] Check Unive rs (ONETOUCH 3-18 blood ity of ULTRASOFT 00:00: glucose 4x [place] LANCETS) 00 daily Medical Misc Branch blood sugar Yes [id number] Check U nivers diagnostic 3-18 blood ity of (ONETOUCH 00:00: glucose 4x [place] VERIO TEST 00 daily Medical STRIPS) Branch strip Blood-Gluco Yes [id number] Check U nivers se Meter 3-18 blood ity of (ONETOUCH 00:00: glucose 4x [place] ULTRA2 00 dialy Medical METER) Kit Branch Lancets Yes [id number] Check Unive rs (ONETOUCH 3-18 blood ity of ULTRASOFT 00:00: glucose 4x [place] LANCETS) 00 daily Medical Misc Branch blood sugar Yes [id number] Check U nivers diagnostic 3-18 blood ity of (ONETOUCH 00:00: glucose 4x [place] VERIO TEST 00 daily Medical STRIPS) Branch strip Blood-Gluco Yes [id number] Check U nivers se Meter 3-18 blood ity of (ONETOUCH 00:00: glucose 4x [place] ULTRA2 00 dialy Medical METER) Kit Branch Lancets Yes [id number] Check Unive rs (ONETOUCH 3-18 blood ity of ULTRASOFT 00:00: glucose 4x [place] LANCETS) 00 daily Medical Misc Branch blood sugar Yes [id number] Check U nivers diagnostic 3-18 blood ity of (ONETOUCH 00:00: glucose 4x [place] VERIO TEST 00 daily Medical STRIPS) Branch strip Blood-Gluco Yes [id number] Check U nivers se Meter 3-18 blood ity of (ONETOUCH 00:00: glucose 4x [place] ULTRA2 00 dialy Medical METER) Kit Branch Lancets Yes [id number] Check Unive rs (ONETOUCH 3-18 blood ity of ULTRASOFT 00:00: glucose 4x [place] LANCETS) 00 daily Medical Misc Branch blood sugar Yes [id number] Check U nivers diagnostic 3-18 blood ity of (ONETOUCH 00:00: glucose 4x [place] VERIO TEST 00 daily Medical STRIPS) Branch strip Blood-Gluco Yes [id number] Check U nivers se Meter 3-18 blood ity of (ONETOUCH 00:00: glucose 4x [place] ULTRA2 00 dialy Medical METER) Kit Branch Lancets Yes [id number] Check Unive rs (ONETOUCH 3-18 blood ity of ULTRASOFT 00:00: glucose 4x [place] LANCETS) 00 daily Medical Mis Branch blood sugar Yes [id number] Check U nivers diagnostic 3-18 blood ity of (ONETOUCH 00:00: glucose 4x [place] VERIO TEST 00 daily Medical STRIPS) Branch strip Blood-Gluco Yes [id number] Check U nivers se Meter 3-18 blood ity of (ONETOUCH 00:00: glucose 4x [place] ULTRA2 00 dialy Medical METER) Kit Branch Lancets Yes [id number] Check Unive rs (ONETOUCH 3-18 blood ity of ULTRASOFT 00:00: glucose 4x [place] LANCETS) 00 daily Medical [facility] Branch blood sugar Yes [id number] Check U nivers diagnostic 3-18 blood ity of (ONETOUCH 00:00: glucose 4x [place] VERIO TEST 00 daily Medical STRIPS) Branch strip Blood-Gluco Yes [id number] Check U nivers se Meter 3-18 blood ity of (ONETOUCH 00:00: glucose 4x [place] ULTRA2 00 dialy Medical METER) Kit Branch Lancets Yes [id number] Check Unive rs (ONETOUCH 3-18 blood ity of ULTRASOFT 00:00: glucose 4x [place] LANCETS) 00 daily Medical Mis Branch blood sugar Yes [id number] Check U nivers diagnostic 3-18 blood ity of (ONETOUCH 00:00: glucose 4x [place] VERIO TEST 00 daily Medical STRIPS) Branch strip Blood-Gluco 0 Yes [id number] Check U nivers se Meter 3-18 blood ity of (ONETOUCH 00:00: glucose 4x [place] ULTRA2 00 dialy Medical METER) Kit Branch Lancets 0 Yes [id number] Check Unive rs (ONETOUCH 3-18 blood ity of ULTRASOFT 00:00: glucose 4x [place] LANCETS) 00 daily Medical Misc Branch blood sugar 0 Yes [id number] Check U nivers diagnostic 3-18 blood ity of (ONETOUCH 00:00: glucose 4x [place] VERIO TEST 00 daily Medical STRIPS) Branch strip Blood-Gluco Yes [id number] Check U nivers se Meter 3-18 blood ity of (ONETOUCH 00:00: glucose 4x [place] ULTRA2 00 dialy Medical METER) Kit Branch Lancets Yes [id number] Check Unive rs (ONETOUCH 3-18 blood ity of ULTRASOFT 00:00: glucose 4x [place] LANCETS) 00 daily Medical Misc Branch blood sugar 0 Yes [id number] Check U nivers diagnostic 3-18 blood ity of (ONETOUCH 00:00: glucose 4x [place] VERIO TEST 00 daily Medical STRIPS) Branch strip Blood-Gluco Yes [id number] Check U nivers se Meter 3-18 blood ity of (ONETOUCH 00:00: glucose 4x [place] ULTRA2 00 dialy Medical METER) Kit Branch Lancets Yes [id number] Check Unive rs (ONETOUCH 3-18 blood ity of ULTRASOFT 00:00: glucose 4x [place] LANCETS) 00 daily Medical Misc Branch blood sugar 0 Yes [id number] Check U nivers diagnostic 3-18 blood ity of (ONETOUCH 00:00: glucose 4x [place] VERIO TEST 00 daily Medical STRIPS) Branch strip Blood-Gluco 0 Yes [id number] Check U nivers se Meter 3-18 blood ity of (ONETOUCH 00:00: glucose 4x [place] ULTRA2 00 dialy Medical METER) Kit Branch Lancets Yes [id number] Check Unive rs (ONETOUCH 3-18 blood ity of ULTRASOFT 00:00: glucose 4x [place] LANCETS) 00 daily Medical [facility] Branch blood sugar Yes [id number] Check U nivers diagnostic 3-18 blood ity of (ONETOUCH 00:00: glucose 4x [place] VERIO TEST 00 daily Medical STRIPS) Branch strip Blood-Gluco Yes [id number] Check U nivers se Meter 3-18 blood ity of (ONETOUCH 00:00: glucose 4x [place] ULTRA2 00 dialy Medical METER) Kit Branch Lancets Yes [id number] Check Unive rs (ONETOUCH 3-18 blood ity of ULTRASOFT 00:00: glucose 4x [place] LANCETS) 00 daily Medical [facility] Branch blood sugar Yes [id number] Check U nivers diagnostic 3-18 blood ity of (ONETOUCH 00:00: glucose 4x [place] VERIO TEST 00 daily Medical STRIPS) Branch strip Blood-Gluco Yes [id number] Check U nivers se Meter 3-18 blood ity of (ONETOUCH 00:00: glucose 4x [place] ULTRA2 00 dialy Medical METER) Kit Branch Lancets Yes [id number] Check Unive rs (ONETOUCH 3-18 blood ity of ULTRASOFT 00:00: glucose 4x [place] LANCETS) 00 daily Medical [facility] Branch blood sugar Yes [id number] Check U nivers diagnostic 3-18 blood ity of (ONETOUCH 00:00: glucose 4x [place] VERIO TEST 00 daily Medical STRIPS) Branch strip Blood-Gluco Yes [id number] Check U nivers se Meter 3-18 blood ity of (ONETOUCH 00:00: glucose 4x [place] ULTRA2 00 dialy Medical METER) Kit Branch Lancets Yes [id number] Check Unive rs (ONETOUCH 3-18 blood ity of ULTRASOFT 00:00: glucose 4x [place] LANCETS) 00 daily Medical [facility] Branch blood sugar Yes [id number] Check U nivers diagnostic 3-18 blood ity of (ONETOUCH 00:00: glucose 4x [place] VERIO TEST 00 daily Medical STRIPS) Branch strip Blood-Gluco Yes [id number] Check U nivers se Meter 3-18 blood ity of (ONETOUCH 00:00: glucose 4x [place] ULTRA2 00 dialy Medical METER) Kit Branch Lancets Yes [id number] Check Unive rs (ONETOUCH 3-18 blood ity of ULTRASOFT 00:00: glucose 4x [place] LANCETS) 00 daily Medical [facility] Branch blood sugar Yes [id number] Check U nivers diagnostic 3-18 blood ity of (ONETOUCH 00:00: glucose 4x [place] VERIO TEST 00 daily Medical STRIPS) Branch strip Blood-Gluco 2020- No [id number] Check [facility] se Meter 3-18 05-30 blood ity of (ONETOUCH 00:00: 00:00 glucose 4x [place] ULTRA2 00 :00 dialy Medical METER) Kit Branch Lancets 2020- No [id number] Check Univ ers (ONETOUCH 3-18 05-30 blood ity of ULTRASOFT 00:00: 00:00 glucose 4x [place] LANCETS) 00 :00 daily Medical [facility] Branch blood sugar 2020- No [id number] Check [facility] diagnostic 3-18 05-30 blood ity of (ONETOUCH 00:00: 00:00 glucose 4x [place] VERIO TEST 00 :00 daily Medical STRIPS) Branch strip Blood-Gluco 2020- No [id number] Check Univers se Meter 3-18 05-30 blood ity of (ONETOUCH 00:00: 00:00 glucose 4x [place] ULTRA2 00 :00 dialy Medical METER) Kit Branch Lancets 2020- No [id number] Check Univ ers (ONETOUCH 3-18 05-30 blood ity of ULTRASOFT 00:00: 00:00 glucose 4x [place] LANCETS) 00 :00 daily Medical [facility] Branch blood sugar 2020- No [id number] Check [facility] diagnostic 3-18 05-30 blood ity of (ONETOUCH 00:00: 00:00 glucose 4x [place] VERIO TEST 00 :00 daily Medical STRIPS) Branch strip ascorbic Yes Anemia of 500mg Take 1 U nivers acid, 3-10 mother in tablet by ity of vitamin C, 00:00: , mouth 3 [place] 500 mg 00 antepartum (three) Medi nba tablet times Branch daily. ascorbic Yes [id number] 500mg Take 1 U nivers acid, 3-10 tablet by ity of vitamin C, 00:00: mouth 3 [place] 500 mg 00 (three) Medical tablet times Branch daily. ferrous Yes [id number] 325mg Take 1 Un indra sulfate 325 3-10 tablet by ity of mg (65 mg 00:00: mouth 2 [place] iron) 00 (two) Medical tablet times Branch daily. ascorbic Yes [id number] 500mg Take 1 U nivers acid, 3-10 tablet by ity of vitamin C, 00:00: mouth 3 [place] 500 mg 00 (three) Medical tablet times Branch daily. ferrous Yes [id number] 325mg Take 1 Un indra sulfate 325 3-10 tablet by ity of mg (65 mg 00:00: mouth 2 [place] iron) 00 (two) Medical tablet times Branch daily. ascorbic Yes [id number] 500mg Take 1 U nivers acid, 3-10 tablet by ity of vitamin C, 00:00: mouth 3 [place] 500 mg 00 (three) Medical tablet times Branch daily. ferrous Yes [id number] 325mg Take 1 Un indra sulfate 325 3-10 tablet by ity of mg (65 mg 00:00: mouth 2 [place] iron) 00 (two) Medical tablet times Branch daily. ascorbic Yes [id number] 500mg Take 1 U nivers acid, 3-10 tablet by ity of vitamin C, 00:00: mouth 3 [place] 500 mg 00 (three) Medical tablet times Branch daily. ferrous Yes [id number] 325mg Take 1 Un indra sulfate 325 3-10 tablet by ity of mg (65 mg 00:00: mouth 2 [place] iron) 00 (two) Medical tablet times Branch daily. ascorbic Yes [id number] 500mg Take 1 U nivers acid, 3-10 tablet by ity of vitamin C, 00:00: mouth 3 [place] 500 mg 00 (three) Medical tablet times Branch daily. ferrous Yes [id number] 325mg Take 1 Un indra sulfate 325 3-10 tablet by ity of mg (65 mg 00:00: mouth 2 [place] iron) 00 (two) Medical tablet times Branch daily. ascorbic Yes [id number] 500mg Take 1 U nivers acid, 3-10 tablet by ity of vitamin C, 00:00: mouth 3 [place] 500 mg 00 (three) Medical tablet times Branch daily. ferrous Yes [id number] 325mg Take 1 Un indra sulfate 325 3-10 tablet by ity of mg (65 mg 00:00: mouth 2 [place] iron) 00 (two) Medical tablet times Branch daily. ascorbic Yes [id number] 500mg Take 1 U nivers acid, 3-10 tablet by ity of vitamin C, 00:00: mouth 3 [place] 500 mg 00 (three) Medical tablet times Branch daily. ferrous Yes [id number] 325mg Take 1 Un indra sulfate 325 3-10 tablet by ity of mg (65 mg 00:00: mouth 2 [place] iron) 00 (two) Medical tablet times Branch daily. ascorbic Yes [id number] 500mg Take 1 U nivers acid, 3-10 tablet by ity of vitamin C, 00:00: mouth 3 [place] 500 mg 00 (three) Medical tablet times Branch daily. ferrous Yes [id number] 325mg Take 1 Un indra sulfate 325 3-10 tablet by ity of mg (65 mg 00:00: mouth 2 [place] iron) 00 (two) Medical tablet times Branch daily. ascorbic Yes [id number] 500mg Take 1 U nivers acid, 3-10 tablet by ity of vitamin C, 00:00: mouth 3 [place] 500 mg 00 (three) Medical tablet times Branch daily. ferrous Yes [id number] 325mg Take 1 Un indra sulfate 325 3-10 tablet by ity of mg (65 mg 00:00: mouth 2 [place] iron) 00 (two) Medical tablet times Branch daily. ascorbic Yes [id number] 500mg Take 1 U nivers acid, 3-10 tablet by ity of vitamin C, 00:00: mouth 3 [place] 500 mg 00 (three) Medical tablet times Branch daily. ferrous Yes [id number] 325mg Take 1 Un indra sulfate 325 3-10 tablet by ity of mg (65 mg 00:00: mouth 2 [place] iron) 00 (two) Medical tablet times Branch daily. ascorbic Yes [id number] 500mg Take 1 U nivers acid, 3-10 tablet by ity of vitamin C, 00:00: mouth 3 [place] 500 mg 00 (three) Medical tablet times Branch daily. ferrous Yes [id number] 325mg Take 1 Un indra sulfate 325 3-10 tablet by ity of mg (65 mg 00:00: mouth 2 [place] iron) 00 (two) Medical tablet times Branch daily. ascorbic Yes [id number] 500mg Take 1 U nivers acid, 3-10 tablet by ity of vitamin C, 00:00: mouth 3 [place] 500 mg 00 (three) Medical tablet times Branch daily. ferrous Yes [id number] 325mg Take 1 Un indra sulfate 325 3-10 tablet by ity of mg (65 mg 00:00: mouth 2 [place] iron) 00 (two) Medical tablet times Branch daily. ascorbic Yes [id number] 500mg Take 1 U nivers acid, 3-10 tablet by ity of vitamin C, 00:00: mouth 3 [place] 500 mg 00 (three) Medical tablet times Branch daily. ferrous Yes [id number] 325mg Take 1 Un indra sulfate 325 3-10 tablet by ity of mg (65 mg 00:00: mouth 2 [place] iron) 00 (two) Medical tablet times Branch daily. ascorbic Yes [id number] 500mg Take 1 U nivers acid, 3-10 tablet by ity of vitamin C, 00:00: mouth 3 [place] 500 mg 00 (three) Medical tablet times Branch daily. ferrous Yes [id number] 325mg Take 1 Un indra sulfate 325 3-10 tablet by ity of mg (65 mg 00:00: mouth 2 [place] iron) 00 (two) Medical tablet times Branch daily. ascorbic Yes [id number] 500mg Take 1 U nivers acid, 3-10 tablet by ity of vitamin C, 00:00: mouth 3 [place] 500 mg 00 (three) Medical tablet times Branch daily. ferrous Yes [id number] 325mg Take 1 Un indra sulfate 325 3-10 tablet by ity of mg (65 mg 00:00: mouth 2 [place] iron) 00 (two) Medical tablet times Branch daily. ascorbic Yes [id number] 500mg Take 1 U nivers acid, 3-10 tablet by ity of vitamin C, 00:00: mouth 3 [place] 500 mg 00 (three) Medical tablet times Branch daily. ferrous Yes [id number] 325mg Take 1 Un indra sulfate 325 3-10 tablet by ity of mg (65 mg 00:00: mouth 2 [place] iron) 00 (two) Medical tablet times Branch daily. ascorbic Yes [id number] 500mg Take 1 U nivers acid, 3-10 tablet by ity of vitamin C, 00:00: mouth 3 [place] 500 mg 00 (three) Medical tablet times Branch daily. ferrous Yes [id number] 325mg Take 1 Un indra sulfate 325 3-10 tablet by ity of mg (65 mg 00:00: mouth 2 [place] iron) 00 (two) Medical tablet times Branch daily. ascorbic Yes [id number] 500mg Take 1 U nivers acid, 3-10 tablet by ity of vitamin C, 00:00: mouth 3 [place] 500 mg 00 (three) Medical tablet times Branch daily. ferrous Yes [id number] 325mg Take 1 Un indra sulfate 325 3-10 tablet by ity of mg (65 mg 00:00: mouth 2 [place] iron) 00 (two) Medical tablet times Branch daily. ascorbic Yes [id number] 500mg Take 1 U nivers acid, 3-10 tablet by ity of vitamin C, 00:00: mouth 3 [place] 500 mg 00 (three) Medical tablet times Branch daily. ferrous Yes [id number] 325mg Take 1 Un indra sulfate 325 3-10 tablet by ity of mg (65 mg 00:00: mouth 2 [place] iron) 00 (two) Medical tablet times Branch daily. ascorbic Yes [id number] 500mg Take 1 U nivers acid, 3-10 tablet by ity of vitamin C, 00:00: mouth 3 [place] 500 mg 00 (three) Medical tablet times Branch daily. ferrous Yes [id number] 325mg Take 1 Un indra sulfate 325 3-10 tablet by ity of mg (65 mg 00:00: mouth 2 [place] iron) 00 (two) Medical tablet times Branch daily. ascorbic Yes [id number] 500mg Take 1 U nivers acid, 3-10 tablet by ity of vitamin C, 00:00: mouth 3 [place] 500 mg 00 (three) Medical tablet times Branch daily. ferrous Yes [id number] 325mg Take 1 Un indra sulfate 325 3-10 tablet by ity of mg (65 mg 00:00: mouth 2 [place] iron) 00 (two) Medical tablet times Branch daily. ascorbic Yes [id number] 500mg Take 1 U nivers acid, 3-10 tablet by ity of vitamin C, 00:00: mouth 3 [place] 500 mg 00 (three) Medical tablet times Branch daily. ferrous Yes [id number] 325mg Take 1 Un indra sulfate 325 3-10 tablet by ity of mg (65 mg 00:00: mouth 2 [place] iron) 00 (two) Medical tablet times Branch daily. ascorbic Yes [id number] 500mg Take 1 U nivers acid, 3-10 tablet by ity of vitamin C, 00:00: mouth 3 [place] 500 mg 00 (three) Medical tablet times Branch daily. ferrous Yes [id number] 325mg Take 1 Un indra sulfate 325 3-10 tablet by ity of mg (65 mg 00:00: mouth 2 [place] iron) 00 (two) Medical tablet times Branch daily. ascorbic Yes [id number] 500mg Take 1 U nivers acid, 3-10 tablet by ity of vitamin C, 00:00: mouth 3 [place] 500 mg 00 (three) Medical tablet times Branch daily. ferrous Yes [id number] 325mg Take 1 Un indra sulfate 325 3-10 tablet by ity of mg (65 mg 00:00: mouth 2 [place] iron) 00 (two) Medical tablet times Branch daily. ascorbic Yes [id number] 500mg Take 1 U nivers acid, 3-10 tablet by ity of vitamin C, 00:00: mouth 3 [place] 500 mg 00 (three) Medical tablet times Branch daily. ferrous Yes [id number] 325mg Take 1 Un indra sulfate 325 3-10 tablet by ity of mg (65 mg 00:00: mouth 2 [place] iron) 00 (two) Medical tablet times Branch daily. ascorbic Yes [id number] 500mg Take 1 U nivers acid, 3-10 tablet by ity of vitamin C, 00:00: mouth 3 [place] 500 mg 00 (three) Medical tablet times Branch daily. ferrous Yes [id number] 325mg Take 1 Un indra sulfate 325 3-10 tablet by ity of mg (65 mg 00:00: mouth 2 [place] iron) 00 (two) Medical tablet times Branch daily. ascorbic Yes [id number] 500mg Take 1 U nivers acid, 3-10 tablet by ity of vitamin C, 00:00: mouth 3 [place] 500 mg 00 (three) Medical tablet times Branch daily. ferrous Yes [id number] 325mg Take 1 Un indra sulfate 325 3-10 tablet by ity of mg (65 mg 00:00: mouth 2 [place] iron) 00 (two) Medical tablet times Branch daily. ascorbic Yes [id number] 500mg Take 1 U nivers acid, 3-10 tablet by ity of vitamin C, 00:00: mouth 3 [place] 500 mg 00 (three) Medical tablet times Branch daily. ferrous Yes [id number] 325mg Take 1 Un indra sulfate 325 3-10 tablet by ity of mg (65 mg 00:00: mouth 2 [place] iron) 00 (two) Medical tablet times Branch daily. ascorbic Yes [id number] 500mg Take 1 U nivers acid, 3-10 tablet by ity of vitamin C, 00:00: mouth 3 [place] 500 mg 00 (three) Medical tablet times Branch daily. ferrous Yes [id number] 325mg Take 1 Un indra sulfate 325 3-10 tablet by ity of mg (65 mg 00:00: mouth 2 [place] iron) 00 (two) Medical tablet times Branch daily. ascorbic Yes [id number] 500mg Take 1 U nivers acid, 3-10 tablet by ity of vitamin C, 00:00: mouth 3 [place] 500 mg 00 (three) Medical tablet times Branch daily. ferrous Yes [id number] 325mg Take 1 Un indra sulfate 325 3-10 tablet by ity of mg (65 mg 00:00: mouth 2 [place] iron) 00 (two) Medical tablet times Branch daily. ascorbic Yes [id number] 500mg Take 1 U nivers acid, 3-10 tablet by ity of vitamin C, 00:00: mouth 3 [place] 500 mg 00 (three) Medical tablet times Branch daily. ferrous Yes [id number] 325mg Take 1 Un indra sulfate 325 3-10 tablet by ity of mg (65 mg 00:00: mouth 2 [place] iron) 00 (two) Medical tablet times Branch daily. ferrous Yes Anemia of 325mg Take 1 Un indra sulfate 325 3-10 mother in tablet by ity of mg (65 mg 00:00: , mouth 2 [place] iron) 00 antepartum (two) Medical tablet times Branch daily. ascorbic 2020- No [id number] 500mg Take 1 [facility] acid, 3-10 05-30 tablet by ity of vitamin C, 00:00: 00:00 mouth 3 [place] 500 mg 00 :00 (three) Medical tablet times Branch daily. ferrous 2020- No [id number] 325mg Take 1 U nivers sulfate 325 3-10 05-30 tablet by it y of mg (65 mg 00:00: 00:00 [place] 2 [place] iron) 00 :00 (two) Medical tablet times Branch daily. ascorbic 2020- No [id number] 500mg Take 1 [facility] acid, 3-10 05-30 tablet by ity of vitamin C, 00:00: 00:00 mouth 3 [place] 500 mg 00 :00 (three) Medical tablet times Branch daily. ferrous 2020- No [id number] 325mg Take 1 U nivers sulfate 325 3-10 05-30 tablet by it y of mg (65 mg 00:00: 00:00 mouth 2 [place] iron) 00 :00 (two) Medical tablet times Branch daily. ferrous Yes [id number] 325mg Take 1 Un indra sulfate 325 3-05 tablet by ity of mg (65 mg 00:00: mouth 2 [place] iron) 00 (two) Medical tablet times Branch daily. ascorbic Yes [id number] 500mg Take 1 U nivers acid, 3-05 tablet by ity of vitamin C, 00:00: mouth 3 [place] 500 mg 00 (three) Medical tablet times Branch daily. ferrous Yes [id number] 325mg Take 1 Un indra sulfate 325 3-05 tablet by ity of mg (65 mg 00:00: mouth 2 [place] iron) 00 (two) Medical tablet times Branch daily. ascorbic Yes [id number] 500mg Take 1 U nivers acid, 3-05 tablet by ity of vitamin C, 00:00: mouth 3 [place] 500 mg 00 (three) Medical tablet times Branch daily. ferrous Yes [id number] 325mg Take 1 Un indra sulfate 325 3-05 tablet by ity of mg (65 mg 00:00: mouth 2 [place] iron) 00 (two) Medical tablet times Branch daily. ascorbic Yes [id number] 500mg Take 1 U nivers acid, 3-05 tablet by ity of vitamin C, 00:00: mouth 3 [place] 500 mg 00 (three) Medical tablet times Branch daily. ferrous Yes [id number] 325mg Take 1 Un indra sulfate 325 3-05 tablet by ity of mg (65 mg 00:00: mouth 2 [place] iron) 00 (two) Medical tablet times Branch daily. ascorbic Yes [id number] 500mg Take 1 U nivers acid, 3-05 tablet by ity of vitamin C, 00:00: mouth 3 [place] 500 mg 00 (three) Medical tablet times Branch daily. ferrous Yes [id number] 325mg Take 1 Un indra sulfate 325 3-05 tablet by ity of mg (65 mg 00:00: mouth 2 [place] iron) 00 (two) Medical tablet times Branch daily. ascorbic Yes [id number] 500mg Take 1 U nivers acid, 3-05 tablet by ity of vitamin C, 00:00: mouth 3 [place] 500 mg 00 (three) Medical tablet times Branch daily. ferrous Yes [id number] 325mg Take 1 Un indra sulfate 325 3-05 tablet by ity of mg (65 mg 00:00: mouth 2 [place] iron) 00 (two) Medical tablet times Branch daily. ascorbic Yes [id number] 500mg Take 1 U nivers acid, 3-05 tablet by [facility] vitamin C, 00:00: mouth [place] mg 00 (three) Medical tablet times Branch daily. ferrous Yes [id number] 325mg Take 1 Un indra sulfate 325 3-05 tablet by ity of mg (65 mg 00:00: mouth 2 [place] iron) 00 (two) Medical tablet times Branch daily. ascorbic Yes [id number] 500mg Take 1 U nivers acid, 3-05 tablet by [facility] vitamin C, 00:00: mouth 3 [place] mg 00 (three) Medical tablet times Branch daily. ferrous Yes [id number] 325mg Take 1 Un indra sulfate 325 3-05 tablet by ity of mg (65 mg 00:00: mouth 2 [place] iron) 00 (two) Medical tablet times Branch daily. ascorbic Yes [id number] 500mg Take 1 U nivers acid, 3-05 tablet by [facility] vitamin C, 00:00: mouth 3 [place] mg 00 (three) Medical tablet times Branch daily. ferrous Yes [id number] 325mg Take 1 Un indra sulfate 325 3-05 tablet by [facility]y of mg (65 mg 00:00: mouth 2 [place] iron) 00 (two) Medical tablet times Branch daily. ascorbic Yes [id number] 500mg Take 1 U nivers acid, 3-05 tablet by [facility] vitamin C, 00:00: mouth 3 [place] mg 00 (three) Medical tablet times Branch daily. ferrous Yes [id number] 325mg Take 1 Un indra sulfate 325 3-05 tablet by [facility]y of mg (65 mg 00:00: mouth 2 [place] iron) 00 (two) Medical tablet times Branch daily. ascorbic Yes [id number] 500mg Take 1 U nivers acid, 3-05 tablet by [facility] vitamin C, 00:00: mouth 3 [place] 500 mg 00 (three) Medical tablet times Branch daily. ferrous Yes [id number] 325mg Take 1 Un indar sulfate 325 3-05 tablet by ity of mg (65 mg 00:00: mouth 2 [place] iron) 00 (two) Medical tablet times Branch daily. ascorbic Yes [id number] 500mg Take 1 U nivers acid, 3-05 tablet by [facility] of vitamin C, 00:00: mouth 3 [place] 500 mg 00 (three) Medical tablet times Branch daily. ferrous Yes [id number] 325mg Take 1 Un indra sulfate 325 3-05 tablet by [facility]y of mg (65 mg 00:00: mouth 2 [place] iron) 00 (two) Medical tablet times Branch daily. ascorbic Yes [id number] 500mg Take 1 U nivers acid, 3-05 tablet by [facility] of vitamin C, 00:00: mouth 3 [place] 500 mg 00 (three) Medical tablet times Branch daily. ferrous Yes [id number] 325mg Take 1 Un indra sulfate 325 3-05 tablet by [facility]y of mg (65 mg 00:00: mouth 2 [place] iron) 00 (two) Medical tablet times Branch daily. ascorbic Yes [id number] 500mg Take 1 U nivers acid, 3-05 tablet by [facility] of vitamin C, 00:00: mouth 3 [place] 500 mg 00 (three) Medical tablet times Branch daily. ferrous Yes [id number] 325mg Take 1 Un indra sulfate 325 3-05 tablet by [facility]y of mg (65 mg 00:00: mouth 2 [place] iron) 00 (two) Medical tablet times Branch daily. ascorbic Yes [id number] 500mg Take 1 U nivers acid, 3-05 tablet by [facility] of vitamin C, 00:00: mouth 3 [place] 500 mg 00 (three) Medical tablet times Branch daily. ferrous Yes [id number] 325mg Take 1 Un indra sulfate 325 3-05 tablet by ity of mg (65 mg 00:00: mouth 2 [place] iron) 00 (two) Medical tablet times Branch daily. ascorbic Yes [id number] 500mg Take 1 U nivers acid, 3-05 tablet by [facility] of vitamin C, 00:00: mouth 3 [place] 500 mg 00 (three) Medical tablet times Branch daily. ferrous Yes [id number] 325mg Take 1 Un indra sulfate 325 3-05 tablet by [facility]y of mg (65 mg 00:00: mouth 2 [place] iron) 00 (two) Medical tablet times Branch daily. ascorbic Yes [id number] 500mg Take 1 U nivers acid, 3-05 tablet by [facility] of vitamin C, 00:00: mouth 3 [place] 500 mg 00 (three) Medical tablet times Branch daily. ferrous Yes [id number] 325mg Take 1 Un indra sulfate 325 3-05 tablet by ity of mg (65 mg 00:00: mouth 2 [place] iron) 00 (two) Medical tablet times Branch daily. ascorbic Yes [id number] 500mg Take 1 U nivers acid, 3-05 tablet by [facility] of vitamin C, 00:00: mouth 3 [place] 500 mg 00 (three) Medical tablet times Branch daily. ferrous Yes [id number] 325mg Take 1 Un indra sulfate 325 3-05 tablet by [facility]y of mg (65 mg 00:00: mouth 2 [place] iron) 00 (two) Medical tablet times Branch daily. ascorbic Yes [id number] 500mg Take 1 U nivers acid, 3-05 tablet by [facility] of vitamin C, 00:00: mouth 3 [place] 500 mg 00 (three) Medical tablet times Branch daily. ferrous Yes [id number] 325mg Take 1 Un indra sulfate 325 3-05 tablet by ity of mg (65 mg 00:00: mouth 2 [place] iron) 00 (two) Medical tablet times Branch daily. ascorbic Yes [id number] 500mg Take 1 U nivers acid, 3-05 tablet by [facility] of vitamin C, 00:00: mouth 3 [place] 500 mg 00 (three) Medical tablet times Branch daily. ferrous Yes [id number] 325mg Take 1 Un indra sulfate 325 3-05 tablet by [facility]y of mg (65 mg 00:00: mouth 2 [place] iron) 00 (two) Medical tablet times Branch daily. ascorbic Yes [id number] 500mg Take 1 U nivers acid, 3-05 tablet by [facility] of vitamin C, 00:00: mouth 3 [place] 500 mg 00 (three) Medical tablet times Branch daily. ferrous Yes [id number] 325mg Take 1 Un indra sulfate 325 3-05 tablet by [facility]y of mg (65 mg 00:00: mouth 2 [place] iron) 00 (two) Medical tablet times Branch daily. ascorbic Yes [id number] 500mg Take 1 U nivers acid, 3-05 tablet by [facility] of vitamin C, 00:00: mouth 3 [place] 500 mg 00 (three) Medical tablet times Branch daily. ferrous Yes [id number] 325mg Take 1 Un indra sulfate 325 3-05 tablet by [facility]y of mg (65 mg 00:00: mouth 2 [place] iron) 00 (two) Medical tablet times Branch daily. ascorbic Yes [id number] 500mg Take 1 U nivers acid, 3-05 tablet by [facility] of vitamin C, 00:00: mouth 3 [place] 500 mg 00 (three) Medical tablet times Branch daily. ferrous Yes [id number] 325mg Take 1 Un indra sulfate 325 3-05 tablet by [facility]y of mg (65 mg 00:00: mouth 2 [place] iron) 00 (two) Medical tablet times Branch daily. ascorbic Yes [id number] 500mg Take 1 U nivers acid, 3-05 tablet by [facility] of vitamin C, 00:00: mouth 3 [place] 500 mg 00 (three) Medical tablet times Branch daily. ferrous Yes [id number] 325mg Take 1 Un indra sulfate 325 3-05 tablet by [facility]y of mg (65 mg 00:00: mouth 2 [place] iron) 00 (two) Medical tablet times Branch daily. ascorbic Yes [id number] 500mg Take 1 U nivers acid, 3-05 tablet by [facility] of vitamin C, 00:00: mouth 3 [place] 500 mg 00 (three) Medical tablet times Branch daily. ferrous Yes [id number] 325mg Take 1 Un indra sulfate 325 3-05 tablet by [facility]y of mg (65 mg 00:00: mouth 2 [place] iron) 00 (two) Medical tablet times Branch daily. ascorbic Yes [id number] 500mg Take 1 U nivers acid, 3-05 tablet by [facility] of vitamin C, 00:00: mouth 3 [place] 500 mg 00 (three) Medical tablet times Branch daily. ferrous Yes [id number] 325mg Take 1 Un indra sulfate 325 3-05 tablet by [facility]y of mg (65 mg 00:00: mouth 2 [place] iron) 00 (two) Medical tablet times Branch daily. ascorbic Yes [id number] 500mg Take 1 U nivers acid, 3-05 tablet by [facility] of vitamin C, 00:00: mouth 3 [place] 500 mg 00 (three) Medical tablet times Branch daily. ferrous Yes [id number] 325mg Take 1 Un indra sulfate 325 3-05 tablet by [facility]y of mg (65 mg 00:00: mouth 2 [place] iron) 00 (two) Medical tablet times Branch daily. ascorbic Yes [id number] 500mg Take 1 U nivers acid, 3-05 tablet by [facility] of vitamin C, 00:00: mouth 3 [place] 500 mg 00 (three) Medical tablet times Branch daily. ferrous Yes [id number] 325mg Take 1 Un indra sulfate 325 3-05 tablet by [facility]y of mg (65 mg 00:00: mouth 2 [place] iron) 00 (two) Medical tablet times Branch daily. ascorbic Yes [id number] 500mg Take 1 U nivers acid, 3-05 tablet by [facility] of vitamin C, 00:00: mouth 3 [place] 500 mg 00 (three) Medical tablet times Branch daily. ferrous Yes [id number] 325mg Take 1 Un indra sulfate 325 3-05 tablet by [facility]y of mg (65 mg 00:00: mouth 2 [place] iron) 00 (two) Medical tablet times Branch daily. ascorbic Yes [id number] 500mg Take 1 U nivers acid, 3-05 tablet by [facility] of vitamin C, 00:00: mouth 3 [place] 500 mg 00 (three) Medical tablet times Branch daily. ferrous Yes [id number] 325mg Take 1 Un indra sulfate 325 3-05 tablet by [facility]y of mg (65 mg 00:00: mouth 2 [place] iron) 00 (two) Medical tablet times Branch daily. ascorbic Yes [id number] 500mg Take 1 U nivers acid, 3-05 tablet by [facility] of vitamin C, 00:00: mouth 3 [place] 500 mg 00 (three) Medical tablet times Branch daily. ferrous Yes [id number] 325mg Take 1 Un indra sulfate 325 3-05 tablet by [facility]y of mg (65 mg 00:00: mouth 2 [place] iron) 00 (two) Medical tablet times Branch daily. ascorbic Yes [id number] 500mg Take 1 U nivers acid, 3-05 tablet by [facility] of vitamin C, 00:00: mouth 3 [place] 500 mg 00 (three) Medical tablet times Branch daily. ferrous Yes [id number] 325mg Take 1 Un indra sulfate 325 3-05 tablet by [facility]y of mg (65 mg 00:00: mouth 2 [place] iron) 00 (two) Medical tablet times Branch daily. ascorbic Yes [id number] 500mg Take 1 U nivers acid, 3-05 tablet by [facility] of vitamin C, 00:00: mouth 3 [place] 500 mg 00 (three) Medical tablet times Branch daily. ferrous Yes [id number] 325mg Take 1 Un indra sulfate 325 3-05 tablet by [facility]y of mg (65 mg 00:00: mouth 2 [place] iron) 00 (two) Medical tablet times Branch daily. ascorbic Yes [id number] 500mg Take 1 U nivers acid, 3-05 tablet by [facility] of vitamin C, 00:00: mouth 3 [place] 500 mg 00 (three) Medical tablet times Branch daily. ferrous Yes [id number] 325mg Take 1 Un indra sulfate 325 3-05 tablet by [facility]y of mg (65 mg 00:00: mouth 2 [place] iron) 00 (two) Medical tablet times Branch daily. ascorbic Yes [id number] 500mg Take 1 U nivers acid, 3-05 tablet by [facility] of vitamin C, 00:00: mouth 3 [place] 500 mg 00 (three) Medical tablet times Branch daily. ferrous Yes [id number] 325mg Take 1 Un indra sulfate 325 3-05 tablet by [facility]y of mg (65 mg 00:00: mouth 2 [place] iron) 00 (two) Medical tablet times Branch daily. ascorbic Yes [id number] 500mg Take 1 U nivers acid, 3-05 tablet by [facility] of vitamin C, 00:00: mouth 3 [place] 500 mg 00 (three) Medical tablet times Branch daily. ferrous Yes [id number] 325mg Take 1 Un indra sulfate 325 3-05 tablet by [facility]y of mg (65 mg 00:00: mouth 2 [place] iron) 00 (two) Medical tablet times Branch daily. ascorbic Yes [id number] 500mg Take 1 U nivers acid, 3-05 tablet by [facility] of vitamin C, 00:00: mouth 3 [place] 500 mg 00 (three) Medical tablet times Branch daily. ferrous Yes [id number] 325mg Take 1 Un indra sulfate 325 3-05 tablet by [facility]y of mg (65 mg 00:00: mouth 2 [place] iron) 00 (two) Medical tablet times Branch daily. ascorbic Yes [id number] 500mg Take 1 U nivers acid, 3-05 tablet by [facility] of vitamin C, 00:00: mouth 3 [place] 500 mg 00 (three) Medical tablet times Branch daily. ferrous Yes [id number] 325mg Take 1 Un indra sulfate 325 3-05 tablet by [facility]y of mg (65 mg 00:00: mouth 2 [place] iron) 00 (two) Medical tablet times Branch daily. ascorbic Yes [id number] 500mg Take 1 U nivers acid, 3-05 tablet by [facility] of vitamin C, 00:00: mouth 3 [place] 500 mg 00 (three) Medical tablet times Branch daily. ferrous Yes [id number] 325mg Take 1 Un indra sulfate 325 3-05 tablet by [facility]y of mg (65 mg 00:00: mouth 2 [place] iron) 00 (two) Medical tablet times Branch daily. ascorbic Yes [id number] 500mg Take 1 U nivers acid, 3-05 tablet by [facility] of vitamin C, 00:00: mouth 3 [place] 500 mg 00 (three) Medical tablet times Branch daily. ferrous Yes [id number] 325mg Take 1 Un indra sulfate 325 3-05 tablet by [facility]y of mg (65 mg 00:00: mouth 2 [place] iron) 00 (two) Medical tablet times Branch daily. ascorbic Yes [id number] 500mg Take 1 U nivers acid, 3-05 tablet by [facility] of vitamin C, 00:00: mouth 3 [place] 500 mg 00 (three) Medical tablet times Branch daily. ferrous Yes [id number] 325mg Take 1 Un indra sulfate 325 3-05 tablet by [facility]y of mg (65 mg 00:00: mouth 2 [place] iron) 00 (two) Medical tablet times Branch daily. ascorbic Yes [id number] 500mg Take 1 U nivers acid, 3-05 tablet by [facility] of vitamin C, 00:00: mouth 3 [place] 500 mg 00 (three) Medical tablet times Branch daily. ferrous Yes [id number] 325mg Take 1 Un indra sulfate 325 3-05 tablet by [facility]y of mg (65 mg 00:00: mouth 2 [place] iron) 00 (two) Medical tablet times Branch daily. ascorbic Yes [id number] 500mg Take 1 U nivers acid, 3-05 tablet by [facility] of vitamin C, 00:00: mouth 3 [place] 500 mg 00 (three) Medical tablet times Branch daily. ferrous Yes [id number] 325mg Take 1 Un indra sulfate 325 3-05 tablet by [facility]y of mg (65 mg 00:00: mouth 2 [place] iron) 00 (two) Medical tablet times Branch daily. ascorbic Yes [id number] 500mg Take 1 U nivers acid, 3-05 tablet by [facility] of vitamin C, 00:00: mouth 3 [place] 500 mg 00 (three) Medical tablet times Branch daily. ferrous Yes [id number] 325mg Take 1 Un indra sulfate 325 3-05 tablet by [facility]y of mg (65 mg 00:00: mouth 2 [place] iron) 00 (two) Medical tablet times Branch daily. ascorbic Yes [id number] 500mg Take 1 U nivers acid, 3-05 tablet by [facility] of vitamin C, 00:00: mouth 3 [place] 500 mg 00 (three) Medical tablet times Branch daily. ferrous Yes [id number] 325mg Take 1 Un indra sulfate 325 3-05 tablet by [facility]y of mg (65 mg 00:00: mouth 2 [place] iron) 00 (two) Medical tablet times Branch daily. ascorbic Yes [id number] 500mg Take 1 U nivers acid, 3-05 tablet by [facility] of vitamin C, 00:00: mouth 3 [place] 500 mg 00 (three) Medical tablet times Branch daily. ferrous Yes [id number] 325mg Take 1 Un indra sulfate 325 3-05 tablet by [facility]y of mg (65 mg 00:00: mouth 2 [place] iron) 00 (two) Medical tablet times Branch daily. ascorbic Yes [id number] 500mg Take 1 U nivers acid, 3-05 tablet by [facility] of vitamin C, 00:00: mouth 3 [place] 500 mg 00 (three) Medical tablet times Branch daily. ferrous Yes [id number] 325mg Take 1 Un indra sulfate 325 3-05 tablet by [facility]y of mg (65 mg 00:00: mouth 2 [place] iron) 00 (two) Medical tablet times Branch daily. ascorbic Yes [id number] 500mg Take 1 U nivers acid, 3-05 tablet by [facility] of vitamin C, 00:00: mouth 3 [place] 500 mg 00 (three) Medical tablet times Branch daily. ferrous Yes [id number] 325mg Take 1 Un indra sulfate 325 3-05 tablet by [facility]y of mg (65 mg 00:00: mouth 2 [place] iron) 00 (two) Medical tablet times Branch daily. ascorbic Yes [id number] 500mg Take 1 U nivers acid, 3-05 tablet by [facility] of vitamin C, 00:00: mouth 3 [place] 500 mg 00 (three) Medical tablet times Branch daily. ferrous Yes [id number] 325mg Take 1 Un indra sulfate 325 3-05 tablet by [facility]y of mg (65 mg 00:00: mouth 2 [place] iron) 00 (two) Medical tablet times Branch daily. ascorbic Yes [id number] 500mg Take 1 U nivers acid, 3-05 tablet by [facility] of vitamin C, 00:00: mouth 3 [place] 500 mg 00 (three) Medical tablet times Branch daily. ferrous Yes Anemia of 325mg Take 1 Un inrda sulfate 325 3-05 mother in tablet by ity of mg (65 mg 00:00: , mouth 2 [place] iron) 00 antepartum (two) Medical tablet times Branch daily. ascorbic Yes Anemia of 500mg Take 1 U nivers acid, 3-05 mother in tablet by ity of vitamin C, 00:00: , mouth 3 [place] 500 mg 00 antepartum (three) Medi nba tablet times Branch daily. PNV 67-iron 2019-02 Yes [id number] 1{capsu Take 1 [facility] ps-folate 2-15 le} capsule by ity of no.1-dha 00:00: mouth [place] (VITAFOL 00 daily. Medical ULTRA) 29 Branch mg iron- 1 mg-200 mg Cap PNV 67-iron 2019-02 Yes [id number] 1{capsu Take 1 [facility] ps-folate 2-15 le} capsule by ity of no.1-dha 00:00: mouth [place] (VITAFOL 00 daily. Medical ULTRA) 29 Branch mg iron- 1 mg-200 mg Cap PNV 67-iron 2020-1 Yes [id number] 1{capsu Take 1 [facility] ps-folate 2-15 le} capsule by ity of no.1-dha 00:00: mouth [place] (VITAFOL 00 daily. Medical ULTRA) 29 Branch mg iron- 1 mg-200 mg Cap PNV 67-iron 2020-1 Yes [id number] 1{capsu Take 1 [facility] ps-folate 2-15 le} capsule by ity of no.1-dha 00:00: mouth [place] (VITAFOL 00 daily. Medical ULTRA) 29 Branch mg iron- 1 mg-200 mg Cap PNV 67-iron 2020-1 Yes [id number] 1{capsu Take 1 [facility] ps-folate 2-15 le} capsule by ity of no.1-dha 00:00: mouth [place] (VITAFOL 00 daily. Medical ULTRA) 29 Branch mg iron- 1 mg-200 mg Cap PNV 67-iron 2020-1 Yes [id number] 1{capsu Take 1 [facility] ps-folate 2-15 le} capsule by ity of no.1-dha 00:00: mouth [place] (VITAFOL 00 daily. Medical ULTRA) 29 Branch mg iron- 1 mg-200 mg Cap PNV 67-iron 2020-1 Yes [id number] 1{capsu Take 1 [facility] ps-folate 2-15 le} capsule by ity of no.1-dha 00:00: mouth [place] (VITAFOL 00 daily. Medical ULTRA) 29 Branch mg iron- 1 mg-200 mg Cap PNV 67-iron 2020-1 Yes [id number] 1{capsu Take 1 [facility] ps-folate 2-15 le} capsule by ity of no.1-dha 00:00: mouth [place] (VITAFOL 00 daily. Medical ULTRA) 29 Branch mg iron- 1 mg-200 mg Cap PNV 67-iron 2020-1 Yes [id number] 1{capsu Take 1 [facility] ps-folate 2-15 le} capsule by ity of no.1-dha 00:00: mouth [place] (VITAFOL 00 daily. Medical ULTRA) 29 Branch mg iron- 1 mg-200 mg Cap PNV 67-iron 2020-1 Yes [id number] 1{capsu Take 1 [facility] ps-folate 2-15 le} capsule by ity of no.1-dha 00:00: mouth [place] (VITAFOL 00 daily. Medical ULTRA) 29 Branch mg iron- 1 mg-200 mg Cap PNV 67-iron 2020-1 Yes [id number] 1{capsu Take 1 [facility] ps-folate 2-15 le} capsule by ity of no.1-dha 00:00: mouth [place] (VITAFOL 00 daily. Medical ULTRA) 29 Branch mg iron- 1 mg-200 mg Cap PNV 67-iron 2020-1 Yes [id number] 1{capsu Take 1 [facility] ps-folate 2-15 le} capsule by ity of no.1-dha 00:00: mouth [place] (VITAFOL 00 daily. Medical ULTRA) 29 Branch mg iron- 1 mg-200 mg Cap PNV 67-iron 2020-1 Yes [id number] 1{capsu Take 1 [facility] ps-folate 2-15 le} capsule by ity of no.1-dha 00:00: mouth [place] (VITAFOL 00 daily. Medical ULTRA) 29 Branch mg iron- 1 mg-200 mg Cap PNV 67-iron 2020-1 Yes [id number] 1{capsu Take 1 [facility] ps-folate 2-15 le} capsule by ity of no.1-dha 00:00: mouth [place] (VITAFOL 00 daily. Medical ULTRA) 29 Branch mg iron- 1 mg-200 mg Cap PNV 67-iron 2020-1 Yes [id number] 1{capsu Take 1 [facility] ps-folate 2-15 le} capsule by ity of no.1-dha 00:00: mouth [place] (VITAFOL 00 daily. Medical ULTRA) 29 Branch mg iron- 1 mg-200 mg Cap PNV 67-iron 2020-1 Yes [id number] 1{capsu Take 1 [facility] ps-folate 2-15 le} capsule by ity of no.1-dha 00:00: mouth [place] (VITAFOL 00 daily. Medical ULTRA) 29 Branch mg iron- 1 mg-200 mg Cap PNV 67-iron 2020-1 Yes [id number] 1{capsu Take 1 [facility] ps-folate 2-15 le} capsule by ity of no.1-dha 00:00: mouth [place] (VITAFOL 00 daily. Medical ULTRA) 29 Branch mg iron- 1 mg-200 mg Cap PNV 67-iron 2020-1 Yes [id number] 1{capsu Take 1 [facility] ps-folate 2-15 le} capsule by ity of no.1-dha 00:00: mouth [place] (VITAFOL 00 daily. Medical ULTRA) 29 Branch mg iron- 1 mg-200 mg Cap PNV 67-iron 2020-1 Yes [id number] 1{capsu Take 1 [facility] ps-folate 2-15 le} capsule by ity of no.1-dha 00:00: mouth [place] (VITAFOL 00 daily. Medical ULTRA) 29 Branch mg iron- 1 mg-200 mg Cap PNV 67-iron 2020-1 Yes [id number] 1{capsu Take 1 [facility] ps-folate 2-15 le} capsule by ity of no.1-dha 00:00: mouth [place] (VITAFOL 00 daily. Medical ULTRA) 29 Branch mg iron- 1 mg-200 mg Cap PNV 67-iron 2020-1 Yes [id number] 1{capsu Take 1 [facility] ps-folate 2-15 le} capsule by ity of no.1-dha 00:00: mouth [place] (VITAFOL 00 daily. Medical ULTRA) 29 Branch mg iron- 1 mg-200 mg Cap PNV 67-iron 2020-1 Yes [id number] 1{capsu Take 1 [facility] ps-folate 2-15 le} capsule by ity of no.1-dha 00:00: mouth [place] (VITAFOL 00 daily. Medical ULTRA) 29 Branch mg iron- 1 mg-200 mg Cap PNV 67-iron 2020-1 Yes [id number] 1{capsu Take 1 [facility] ps-folate 2-15 le} capsule by ity of no.1-dha 00:00: mouth [place] (VITAFOL 00 daily. Medical ULTRA) 29 Branch mg iron- 1 mg-200 mg Cap PNV 67-iron 2020-1 Yes [id number] 1{capsu Take 1 [facility] ps-folate 2-15 le} capsule by ity of no.1-dha 00:00: mouth [place] (VITAFOL 00 daily. Medical ULTRA) 29 Branch mg iron- 1 mg-200 mg Cap PNV 67-iron 2020-1 Yes [id number] 1{capsu Take 1 [facility] ps-folate 2-15 le} capsule by ity of no.1-dha 00:00: mouth [place] (VITAFOL 00 daily. Medical ULTRA) 29 Branch mg iron- 1 mg-200 mg Cap PNV 67-iron 2020-1 Yes [id number] 1{capsu Take 1 [facility] ps-folate 2-15 le} capsule by ity of no.1-dha 00:00: mouth [place] (VITAFOL 00 daily. Medical ULTRA) 29 Branch mg iron- 1 mg-200 mg Cap PNV 67-iron 2020-1 Yes [id number] 1{capsu Take 1 [facility] ps-folate 2-15 le} capsule by ity of no.1-dha 00:00: mouth [place] (VITAFOL 00 daily. Medical ULTRA) 29 Branch mg iron- 1 mg-200 mg Cap PNV 67-iron 2020-1 Yes [id number] 1{capsu Take 1 [facility] ps-folate 2-15 le} capsule by ity of no.1-dha 00:00: mouth [place] (VITAFOL 00 daily. Medical ULTRA) 29 Branch mg iron- 1 mg-200 mg Cap PNV 67-iron 2020-1 Yes [id number] 1{capsu Take 1 [facility] ps-folate 2-15 le} capsule by ity of no.1-dha 00:00: mouth [place] (VITAFOL 00 daily. Medical ULTRA) 29 Branch mg iron- 1 mg-200 mg Cap PNV 67-iron 2020-1 Yes [id number] 1{capsu Take 1 [facility] ps-folate 2-15 le} capsule by ity of no.1-dha 00:00: mouth [place] (VITAFOL 00 daily. Medical ULTRA) 29 Branch mg iron- 1 mg-200 mg Cap PNV 67-iron 2020-1 Yes [id number] 1{capsu Take 1 [facility] ps-folate 2-15 le} capsule by ity of no.1-dha 00:00: mouth [place] (VITAFOL 00 daily. Medical ULTRA) 29 Branch mg iron- 1 mg-200 mg Cap PNV 67-iron 2020-1 Yes [id number] 1{capsu Take 1 [facility] ps-folate 2-15 le} capsule by ity of no.1-dha 00:00: mouth [place] (VITAFOL 00 daily. Medical ULTRA) 29 Branch mg iron- 1 mg-200 mg Cap PNV 67-iron 2020-1 Yes [id number] 1{capsu Take 1 [facility] ps-folate 2-15 le} capsule by ity of no.1-dha 00:00: mouth [place] (VITAFOL 00 daily. Medical ULTRA) 29 Branch mg iron- 1 mg-200 mg Cap PNV 67-iron 2020-1 Yes [id number] 1{capsu Take 1 [facility] ps-folate 2-15 le} capsule by ity of no.1-dha 00:00: mouth [place] (VITAFOL 00 daily. Medical ULTRA) 29 Branch mg iron- 1 mg-200 mg Cap PNV 67-iron 2020- Yes [id number] 1{capsu Take 1 [facility] ps-folate 2-15 le} capsule by ity of no.1-dha 00:00: mouth [place] (VITAFOL 00 daily. Medical ULTRA) 29 Branch mg iron- 1 mg-200 mg Cap PNV 67-iron 2020- Yes [id number] 1{capsu Take 1 [facility] ps-folate 2-15 le} capsule by ity of no.1-dha 00:00: mouth [place] (VITAFOL 00 daily. Medical ULTRA) 29 Branch mg iron- 1 mg-200 mg Cap PNV 67-iron 2020- Yes [id number] 1{capsu Take 1 [facility] ps-folate 2-15 le} capsule by ity of no.1-dha 00:00: mouth [place] (VITAFOL 00 daily. Medical ULTRA) 29 Branch mg iron- 1 mg-200 mg Cap PNV 67-iron 2020- Yes [id number] 1{capsu Take 1 [facility] ps-folate 2-15 le} capsule by ity of no.1-dha 00:00: mouth [place] (VITAFOL 00 daily. Medical ULTRA) 29 Branch mg iron- 1 mg-200 mg Cap PNV 67-iron 2020- Yes [id number] 1{capsu Take 1 [facility] ps-folate 2-15 le} capsule by ity of no.1-dha 00:00: mouth [place] (VITAFOL 00 daily. Medical ULTRA) 29 Branch mg iron- 1 mg-200 mg Cap PNV 67-iron 2020- Yes Supervision 1{capsu Take 1 [facility] ps-folate 2-15 of high le} capsule by i ty of no.1-dha 00:00: risk mouth [place] (VITAFOL 00 daily. Medi nba ULTRA) 29 in second Branc h mg iron- 1 trimester mg-200 mg Cap PNV 67-iron 2020-2020- No [id number] 1{capsu Take 1 [facility] ps-folate 2-15 05-30 le} capsule by ity of no.1-dha 00:00: 00:00 mouth [place] (VITAFOL 00 :00 daily. Medical ULTRA) 29 Branch mg iron- 1 mg-200 mg Cap PNV 67-iron 2019-02- No [id number] 1{capsu Take 1 [facility] ps-folate 2-15 05-30 le} capsule by ity of no.1-dha 00:00: 00:00 mouth [place] (VITAFOL 00 :00 daily. Medical ULTRA) 29 Branch mg iron- 1 mg-200 mg Cap measles, 2019- No .5mL 0.5 mL, Unive rs mumps + 10-13 Subcutaneo ity o f rubella vac 13:00: 17:27 us, ONCE, [place] (M-M-R II) 00 :00 1 dose, Medica l 1,000-12,50 Tue Branch 0 10/13/18 at TCID50/0.5 0800, mL Routine injection 0.5 mL 2018- Yes [id number] 1{tbl} Take 1 [facility] vitamin 8-27 tablet by ity of w/FA tablet 00:00: mouth 00 daily. Medical Branch docusate Yes [id number] 240mg Take 1 U nivers calcium 240 8-27 capsule by it y of mg capsule 00:00: mouth once [place] 00 daily as Medical needed for Branch Constipati on. ferrous 2018- Yes [id number] 325mg Take 1 Un indra sulfate 325 8-27 tablet by ity of mg (65 mg 00:00: mouth 2 [place] iron) 00 (two) Medical tablet times Branch daily. ibuprofen 2018- Yes [id number] 600mg Take 1 [facility] 600 mg 8-27 tablet by ity of tablet 00:00: mouth [place] 00 every 6 Medical (six) Branch hours as needed for Pain (scale 1-3) or Pain (scale 4-6) (Pain). Take with food or milk. 2019- Yes [id number] 1{tbl} Take 1 [facility] vitamin 8-27 tablet by ity of w/FA tablet 00:00: mouth [place] 00 daily. Medical Branch docusate Yes [id number] 240mg Take 1 U nivers calcium 240 8-27 capsule by it y of mg capsule 00:00: mouth once [place] 00 daily as Medical needed for Branch Constipati on. ferrous 2018- Yes [id number] 325mg Take 1 Un indra sulfate 325 8-27 tablet by ity of mg (65 mg 00:00: mouth 2 [place] iron) 00 (two) Medical tablet times Branch daily. ibuprofen 2019-0 Yes [id number] 600mg Take 1 [facility] 600 mg 8-27 tablet by ity of tablet 00:00: mouth [place] 00 every 6 Medical (six) Branch hours as needed for Pain (scale 1-3) or Pain (scale 4-6) (Pain). Take with food or milk. 2019-0 Yes [id number] 1{tbl} Take 1 [facility] vitamin 8-27 tablet by ity of w/FA tablet 00:00: mouth [place] 00 daily. Medical Branch docusate Yes [id number] 240mg Take 1 [facility] n[facility] calcium 240 8-27 capsule by it y of mg capsule 00:00: mouth once [place] 00 daily as Medical needed for Branch Constipati on. ferrous 2018- Yes [id number] 325mg Take 1 [facility] sulfate 325 8-27 tablet by ity of mg (65 mg 00:00: mouth 2 [place] iron) 00 (two) Medical tablet times Branch daily. ibuprofen Yes [id number] 600mg Take 1 [facility] 600 mg 8-27 tablet by ity of tablet 00:00: mouth [place] 00 every 6 Medical (six) Branch hours as needed for Pain (scale 1-3) or Pain (scale 4-6) (Pain). Take with food or milk. 0 Yes [id number] 1{tbl} Take 1 [facility] vitamin 8-27 tablet by ity of w/FA tablet 00:00: mouth [place] 00 daily. Medical Branch docusate 0 Yes [id number] 240mg Take 1 [facility] nivers calcium 240 8-27 capsule by it y of mg capsule 00:00: mouth once [place] 00 daily as Medical needed for Branch Constipati on. ferrous 2019-0 Yes [id number] 325mg Take 1 [facility] sulfate 325 8-27 tablet by ity of mg (65 mg 00:00: mouth 2 [place] iron) 00 (two) Medical tablet times Branch daily. ibuprofen 2019-0 Yes [id number] 600mg Take 1 [facility] 600 mg 8-27 tablet by ity of tablet 00:00: mouth [place] 00 every 6 Medical (six) Branch hours as needed for Pain (scale 1-3) or Pain (scale 4-6) (Pain). Take with food or milk. Yes [id number] 1{tbl} Take 1 [facility] vitamin 8-27 tablet by ity of w/FA tablet 00:00: mouth [place] 00 daily. Medical Branch docusate Yes [id number] 240mg Take 1 [facility] n[facility] calcium 240 8-27 capsule by it y of mg capsule 00:00: mouth once [place] 00 daily as Medical needed for Branch Constipati on. ferrous Yes [id number] 325mg Take 1 [facility] sulfate 325 8-27 tablet by ity of mg (65 mg 00:00: mouth 2 [place] iron) 00 (two) Medical tablet times Branch daily. ibuprofen Yes [id number] 600mg Take 1 [facility] 600 mg 8-27 tablet by ity of tablet 00:00: mouth [place] 00 every 6 Medical (six) Branch hours as needed for Pain (scale 1-3) or Pain (scale 4-6) (Pain). Take with food or milk. Yes [id number] 1{tbl} Take 1 [facility] vitamin 8-27 tablet by ity of w/FA tablet 00:00: mouth [place] 00 daily. Medical Branch docusate Yes [id number] 240mg Take 1 [facility] n[facility] calcium 240 8-27 capsule by it y of mg capsule 00:00: mouth once [place] 00 daily as Medical needed for Branch Constipati on. ferrous Yes [id number] 325mg Take 1 [facility] ind[facility] sulfate 325 8-27 tablet by ity of mg (65 mg 00:00: mouth 2 [place] iron) 00 (two) Medical tablet times Branch daily. ibuprofen Yes [id number] 600mg Take 1 [facility] 600 mg 8-27 tablet by ity of tablet 00:00: mouth [place] 00 every 6 Medical (six) Branch hours as needed for Pain (scale 1-3) or Pain (scale 4-6) (Pain). Take with food or milk. Yes [id number] 1{tbl} Take 1 [facility] vitamin 8-27 tablet by ity of w/FA tablet 00:00: mouth [place] 00 daily. Medical Branch docusate Yes [id number] 240mg Take 1 [facility] calcium 240 8-27 capsule by it y of mg capsule 00:00: mouth once [place] 00 daily as Medical needed for Branch Constipati on. ferrous 2019-0 Yes [id number] 325mg Take 1 [facility] ind[facility] sulfate 325 8-27 tablet by ity of mg (65 mg 00:00: mouth 2 [place] iron) 00 (two) Medical tablet times Branch daily. ibuprofen 2019-0 Yes [id number] 600mg Take 1 [facility] 600 mg 8-27 tablet by ity of tablet 00:00: mouth [place] 00 every 6 Medical (six) Branch hours as needed for Pain (scale 1-3) or Pain (scale 4-6) (Pain). Take with food or milk. 2018- Yes [id number] 1{tbl} Take 1 [facility] vitamin 8-27 tablet by ity of w/FA tablet 00:00: mouth [place] 00 daily. Medical Branch docusate Yes [id number] 240mg Take 1 [facility] nivers calcium 240 8-27 capsule by it y of mg capsule 00:00: mouth once [place] 00 daily as Medical needed for Branch Constipati on. ferrous Yes [id number] 325mg Take 1 [facility] ind[facility] sulfate 325 8-27 tablet by ity of mg (65 mg 00:00: mouth 2 [place] iron) 00 (two) Medical tablet times Branch daily. ibuprofen 2018-0 Yes [id number] 600mg Take 1 [facility] 600 mg 8-27 tablet by ity of tablet 00:00: mouth [place] 00 every 6 Medical (six) Branch hours as needed for Pain (scale 1-3) or Pain (scale 4-6) (Pain). Take with food or milk. 2019-0 Yes [id number] 1{tbl} Take 1 [facility] vitamin 8-27 tablet by ity of w/FA tablet 00:00: mouth [place] 00 daily. Medical Branch docusate 0 Yes [id number] 240mg Take 1 [facility] n[facility] calcium 240 8-27 capsule by it y of mg capsule 00:00: mouth once [place] 00 daily as Medical needed for Branch Constipati on. ferrous 2019-0 Yes [id number] 325mg Take 1 [facility] ind[facility] sulfate 325 8-27 tablet by ity of mg (65 mg 00:00: mouth 2 [place] iron) 00 (two) Medical tablet times Branch daily. ibuprofen 2019-0 Yes [id number] 600mg Take 1 [facility] 600 mg 8-27 tablet by ity of tablet 00:00: mouth [place] 00 every 6 Medical (six) Branch hours as needed for Pain (scale 1-3) or Pain (scale 4-6) (Pain). Take with food or milk. Yes [id number] 1{tbl} Take 1 [facility] vitamin 8-27 tablet by ity of w/FA tablet 00:00: mouth [place] 00 daily. Medical Branch docusate Yes [id number] 240mg Take 1 [facility] n[facility] calcium 240 8-27 capsule by it y of mg capsule 00:00: mouth once [place] 00 daily as Medical needed for Branch Constipati on. ferrous Yes [id number] 325mg Take 1 Un ind[facility] sulfate 325 8-27 tablet by ity of mg (65 mg 00:00: mouth 2 [place] iron) 00 (two) Medical tablet times Branch daily. ibuprofen Yes [id number] 600mg Take 1 [facility] 600 mg 8-27 tablet by ity of tablet 00:00: mouth [place] 00 every 6 Medical (six) Branch hours as needed for Pain (scale 1-3) or Pain (scale 4-6) (Pain). Take with food or milk. 2020- No [id number] 1{tbl} Take 1 [facility] vitamin 8-27 10-16 tablet by ity of w/FA tablet 00:00: 00:00 mouth [place] 00 :00 daily. Medical Branch docusate 2020- No [id number] 240mg Take 1 [facility] calcium 240 8-27 10-16 capsule by i ty of mg capsule 00:00: 00:00 mouth once [place] 00 :00 daily as Medical needed for Branch Constipati on. ferrous 2020- No [id number] 325mg Take 1 U nivers sulfate 325 8-27 10-16 tablet by it y of mg (65 mg 00:00: 00:00 mouth 2 [place] iron) 00 :00 (two) Medical tablet times Branch daily. ibuprofen 2019- No [id number] 600mg Take 1 [facility] 600 mg 8-27 10-16 tablet by ity of tablet 00:00: 00:00 mouth [place] 00 :00 every 6 Medical (six) Branch hours as needed for Pain (scale 1-3) or Pain (scale 4-6) (Pain). Take with food or milk. human 2019-0 Yes .5mL 0.5 mL, Univers papillomav 10-12 Intramuscu ity of vac,9-katherine(P 10:32: lar, [place] F) 12 ONCE-PRIOR Medical (GARDASIL 9 TO Branch (PF)) vial DISCHARGE, 0.5 mL 1 dose, Starting 10/12/18 at 0532, Until Discontinu ed, Routine, Give vaccine prior to discharge acetaminoph 2019-0 Yes 650mg 650 mg, Un ind[facility] en 10-12 Oral, ity of (TYLENOL) 10:32: Q6HPRN, [place] tablet 650 12 Starting Medic al mg [facility] 10/12/18 at 0532, Until Discontinu ed, Routine, Pain (scale 1-3) ibuprofen 2019-0 Yes 600mg 600 mg, Univ ers (IBU) 10-12 Oral, ity of tablet 600 10:32: Q6HPRN, [place] mg 12 Starting Medical [facility] Branch 10/12/18 at 0532, Until Discontinu ed, Routine, Pain (scale 4-6) diphenhydrA 2019-0 Yes 25mg 25 mg, Univ ers MINE 10-12 Oral, ity of (BENADRYL) 10:32: Q6HPRN, [place] tablet 25 12 Starting Medica l mg [facility] 10/12/18 at 0532, Until Discontinu ed, Routine, Sleep, Itching ondansetron 2019-0 Yes 4mg 4 mg, Slow Univers (ZOFRAN 10-12 IV Push, ity of (PF)) 10:32: Q8HPRN, [place] injection 4 12 Starting Medi nba mg [facility] 10/12/18 at 0532, Until Discontinu ed, Routine, Nausea and Vomiting (N/V) simethicone 2019-0 Yes 160mg 160 mg, Un indra (GAS 10-12 Oral, ity of RELIEF) 10:32: PC+HSPRN, [place] chewable 12 Starting Medical tablet 160 Mon Branch mg 10/12/18 at 0532, Until Discontinu ed, Routine, Gas docusate 2019-0 Yes 240mg 240 mg, Unive rs calcium 10-12 Oral, ity of (SURFAK) 10:32: QDAILYPRN, [place] capsule 240 12 Starting Medi nba mg Mon [place] 10/12/18 at 0532, Until Discontinu ed, Routine, Constipati on magnesium Yes 30mL 30 mL, Univer s hydroxide 10-12 Oral, ity of (MILK OF 10:32: QDAILYPRN, [place] MAGNESIA) 12 Starting Medica l 400 mg/5 mL Mon [place] suspension 10/12/18 at 30 mL 0532, Until Discontinu ed, Routine, Constipati on benzocaine- Yes Topical, Un indra menthol 10-12 PRN, ity of (DERMOPLAST 10:32: Starting [place] ) 20-0.5 % 12 Mon Medical topical 10/12/18 at Branch spray 0532, Until Discontinu ed, Routine, Perineum discomfort ondansetron 2019- No 4mg 4 mg, Slow Univers (ZOFRAN 10-12 IV Push, ity of (PF)) 08:15: 07:21 ONCE, 1 [place] injection 4 00 :00 dose, Mon Med ical mg 10/12/18 at Branch 0315, Routine LR 1000 mL 2019- No at 999 Univ ers + oxytocin 10-12 mL/hr, IV ity of 20 units IV 06:45: 05:57 Infusion, [place] Solution 00 :00 ONCE, 1 Medical dose, [facility] 10/12/18 at 0145, Routine sodium 2019- No 30mL 30 mL, Univers citrate-cit 10-11 Oral, ity of [place] acid 21:25: 21:43 PRE-PROCED [place] (BICITRA) 17 :00 URE ONCE, Medic al 500-334 1 dose, Branch mg/5 mL Starting solution 30 Sun mL 10/11/18 at 1625, Until Discontinu ed, Routine, Surgery/Pr ocedure LR 1000 mL 2019- No 2mU/min 2 Uni vers + oxytocin 10-11 radha-unit it y of 20 units IV 17:44: 10:32 s/min (6 [place] Solution 00 :17 mL/hr), at Medic al 6 mL/hr, Branch IV Infusion, TITRATE, Starting 10/11/18 at 1244, Until 8/26/19 at 0532, TERI, [place] q2m acetaminoph Yes [id number] 1{capsu Take 1 [facility] en-caff-but 7-10 le} capsule by it y of albital 00:00: mouth [place] (ESGIC) per 00 every 6 Medic al capsule (six) Branch hours as needed for Pain. acetaminoph Yes [id number] 1{capsu Take 1 [facility] en-caff-but 7-10 le} capsule by it y of albital 00:00: mouth [place] (ESGIC) per 00 every 6 Medic al capsule (six) Branch hours as needed for Pain. acetaminoph Yes [id number] 1{capsu Take 1 [facility] en-caff-but 7-10 le} capsule by it y of albital 00:00: mouth [place] (ESGIC) per 00 every 6 Medic al capsule (six) Branch hours as needed for Pain. acetaminoph Yes [id number] 1{capsu Take 1 [facility] en-caff-but 7-10 le} capsule by it y of albital 00:00: mouth [place] (ESGIC) per 00 every 6 Medic al capsule (six) Branch hours as needed for Pain. acetaminoph Yes [id number] 1{capsu Take 1 [facility] en-caff-but 7-10 le} capsule by it y of albital 00:00: mouth [place] (ESGIC) per 00 every 6 Medic al capsule (six) Branch hours as needed for Pain. acetaminoph Yes [id number] 1{capsu Take 1 [facility] en-caff-but 7-10 le} capsule by it y of albital 00:00: mouth [place] (ESGIC) per 00 every 6 Medic al capsule (six) Branch hours as needed for Pain. acetaminoph Yes [id number] 1{capsu Take 1 [facility] en-caff-but 7-10 le} capsule by it y of albital 00:00: mouth [place] (ESGIC) per 00 every 6 Medic al capsule (six) Branch hours as needed for Pain. acetaminoph Yes [id number] 1{capsu Take 1 [facility] en-caff-but 7-10 le} capsule by it y of albital 00:00: mouth [place] (ESGIC) per 00 every 6 Medic al capsule (six) Branch hours as needed for Pain. acetaminoph Yes [id number] 1{capsu Take 1 [facility] en-caff-but 7-10 le} capsule by it y of albital 00:00: mouth [place] (ESGIC) per 00 every 6 Medic al capsule (six) Branch hours as needed for Pain. acetaminoph Yes [id number] 1{capsu Take 1 [facility] en-caff-but 7-10 le} capsule by it y of albital 00:00: mouth [place] (ESGIC) per 00 every 6 Medic al capsule (six) Branch hours as needed for Pain. acetaminoph Yes [id number] 1{capsu Take 1 [facility] en-caff-but 7-10 le} capsule by it y of albital 00:00: mouth [place] (ESGIC) per 00 every 6 Medic al capsule (six) Branch hours as needed for Pain. acetaminoph Yes [id number] 1{capsu Take 1 [facility] en-caff-but 7-10 le} capsule by it y of albital 00:00: mouth [place] (ESGIC) per 00 every 6 Medic al capsule (six) Branch hours as needed for Pain. acetaminoph Yes [id number] 1{capsu Take 1 [facility] en-caff-but 7-10 le} capsule by it y of albital 00:00: mouth [place] (ESGIC) per 00 every 6 Medic al capsule (six) Branch hours as needed for Pain. acetaminoph Yes [id number] 1{capsu Take 1 [facility] en-caff-but 7-10 le} capsule by it y of albital 00:00: mouth [place] (ESGIC) per 00 every 6 Medic al capsule (six) Branch hours as needed for Pain. acetaminoph Yes [id number] 1{capsu Take 1 [facility] en-caff-but 7-10 le} capsule by it y of albital 00:00: mouth [place] (ESGIC) per 00 every 6 Medic al capsule (six) Branch hours as needed for Pain. acetaminoph 2018- Yes [id number] 1{capsu Take 1 [facility] en-caff-but 7-10 le} capsule by it y of albital 00:00: mouth [place] (ESGIC) per 00 every 6 Medic al capsule (six) Branch hours as needed for Pain. acetaminoph Yes [id number] 1{capsu Take 1 [facility] en-caff-but 7-10 le} capsule by it y of albital 00:00: mouth [place] (ESGIC) per 00 every 6 Medic al capsule (six) Branch hours as needed for Pain. acetaminoph Yes [id number] 1{capsu Take 1 [facility] en-caff-but 7-10 le} capsule by it y of albital 00:00: mouth [place] (ESGIC) per 00 every 6 Medic al capsule (six) Branch hours as needed for Pain. acetaminoph Yes [id number] 1{capsu Take 1 [facility] en-caff-but 7-10 le} capsule by it y of albital 00:00: mouth [place] (ESGIC) per 00 every 6 Medic al capsule (six) Branch hours as needed for Pain. acetaminoph Yes [id number] 1{capsu Take 1 [facility] en-caff-but 7-10 le} capsule by it y of albital 00:00: mouth [place] (ESGIC) per 00 every 6 Medic al capsule (six) Branch hours as needed for Pain. acetaminoph Yes [id number] 1{capsu Take 1 [facility] en-caff-but 7-10 le} capsule by it y of albital 00:00: mouth [place] (ESGIC) per 00 every 6 Medic al capsule (six) Branch hours as needed for Pain. acetaminoph 2020- No [id number] 1{capsu Take 1 [facility] en-caff-but 7-10 10-16 le} capsule by i ty of albital 00:00: 00:00 mouth [place] (ESGIC) per 00 :00 every 6 Medic al capsule (six) Branch hours as needed for Pain. proMETHazin 2019- Yes [id number] 25mg Take 1 Univers e 25 mg 5-10 tablet by ity of tablet 00:00: mouth [place] 00 every 6 Medical (six) Branch hours as needed for Nausea and Vomiting (N/V). acetaminoph Yes [id number] 1{capsu Take 1 [facility] en-caff-but 5-10 le} capsule by it y of albital 00:00: mouth [place] (ESGIC) per 00 every 6 Medic al capsule (six) Branch hours as needed (headache) . proMETHazin 2019- Yes [id number] 25mg Take 1 Univers e 25 mg 5-10 tablet by ity of tablet 00:00: mouth [place] 00 every 6 Medical (six) Branch hours as needed for Nausea and Vomiting (N/V). acetaminoph Yes [id number] 1{capsu Take 1 [facility] en-caff-but 5-10 le} capsule by it y of albital 00:00: mouth [place] (ESGIC) per 00 every 6 Medic al capsule (six) Branch hours as needed (headache) . proMETHazin 2018- Yes [id number] 25mg Take 1 Univers e 25 mg 5-10 tablet by ity of tablet 00:00: mouth [place] 00 every 6 Medical (six) Branch hours as needed for Nausea and Vomiting (N/V). acetaminoph Yes [id number] 1{capsu Take 1 [facility] en-caff-but 5-10 le} capsule by it y of albital 00:00: mouth [place] (ESGIC) per 00 every 6 Medic al capsule (six) Branch hours as needed (headache) . proMETHazin Yes [id number] 25mg Take 1 Univers e 25 mg 5-10 tablet by ity of tablet 00:00: mouth [place] 00 every 6 Medical (six) Branch hours as needed for Nausea and Vomiting (N/V). acetaminoph Yes [id number] 1{capsu Take 1 [facility] en-caff-but 5-10 le} capsule by it y of albital 00:00: mouth [place] (ESGIC) per 00 every 6 Medic al capsule (six) Branch hours as needed (headache) . proMETHazin 2018- Yes [id number] 25mg Take 1 Univers e 25 mg 5-10 tablet by ity of tablet 00:00: mouth [place] 00 every 6 Medical (six) Branch hours as needed for Nausea and Vomiting (N/V). acetaminoph 2019 Yes [id number] 1{capsu Take 1 [facility] en-caff-but 5-10 le} capsule by it y of albital 00:00: mouth [place] (ESGIC) per 00 every 6 Medic al capsule (six) Branch hours as needed (headache) . proMETHazin 2019- Yes [id number] 25mg Take 1 Univers e 25 mg 5-10 tablet by ity of tablet 00:00: mouth [place] 00 every 6 Medical (six) Branch hours as needed for Nausea and Vomiting (N/V). acetaminoph Yes [id number] 1{capsu Take 1 [facility] en-caff-but 5-10 le} capsule by it y of albital 00:00: mouth [place] (ESGIC) per 00 every 6 Medic al capsule (six) Branch hours as needed (headache) . proMETHazin 2018- Yes [id number] 25mg Take 1 Univers e 25 mg 5-10 tablet by ity of tablet 00:00: mouth [place] 00 every 6 Medical (six) Branch hours as needed for Nausea and Vomiting (N/V). acetaminoph Yes [id number] 1{capsu Take 1 [facility] en-caff-but 5-10 le} capsule by it y of albital 00:00: mouth [place] (ESGIC) per 00 every 6 Medic al capsule (six) Branch hours as needed (headache) . proMETHazin Yes [id number] 25mg Take 1 Univers e 25 mg 5-10 tablet by ity of tablet 00:00: mouth [place] 00 every 6 Medical (six) Branch hours as needed for Nausea and Vomiting (N/V). acetaminoph Yes [id number] 1{capsu Take 1 [facility] en-caff-but 5-10 le} capsule by it y of albital 00:00: mouth [place] (ESGIC) per 00 every 6 Medic al capsule (six) Branch hours as needed (headache) . proMETHazin 2018- Yes [id number] 25mg Take 1 Univers e 25 mg 5-10 tablet by ity of tablet 00:00: mouth [place] 00 every 6 Medical (six) Branch hours as needed for Nausea and Vomiting (N/V). acetaminoph Yes [id number] 1{capsu Take 1 [facility] en-caff-but 5-10 le} capsule by it y of albital 00:00: mouth [place] (ESGIC) per 00 every 6 Medic al capsule (six) Branch hours as needed (headache) . proMETHazin 2019- Yes [id number] 25mg Take 1 Univers e 25 mg 5-10 tablet by ity of tablet 00:00: mouth [place] 00 every 6 Medical (six) Branch hours as needed for Nausea and Vomiting (N/V). proMETHazin 2018- Yes [id number] 25mg Take 1 Univers e 25 mg 5-10 tablet by ity of tablet 00:00: mouth [place] 00 every 6 Medical (six) Branch hours as needed for Nausea and Vomiting (N/V). proMETHazin 2018-0 Yes [id number] 25mg Take 1 Univers e 25 mg 5-10 tablet by ity of tablet 00:00: mouth [place] 00 every 6 Medical (six) Branch hours as needed for Nausea and Vomiting (N/V). proMETHazin 2018-0 Yes [id number] 25mg Take 1 Univers e 25 mg 5-10 tablet by ity of tablet 00:00: mouth [place] 00 every 6 Medical (six) Branch hours as needed for Nausea and Vomiting (N/V). proMETHazin 0 Yes [id number] 25mg Take 1 Univers e 25 mg 5-10 tablet by ity of tablet 00:00: mouth [place] 00 every 6 Medical (six) Branch hours as needed for Nausea and Vomiting (N/V). proMETHazin 0 Yes [id number] 25mg Take 1 Univers e 25 mg 5-10 tablet by ity of tablet 00:00: mouth [place] 00 every 6 Medical (six) Branch hours as needed for Nausea and Vomiting (N/V). proMETHazin 0 Yes [id number] 25mg Take 1 Univers e 25 mg 5-10 tablet by ity of tablet 00:00: mouth [place] 00 every 6 Medical (six) Branch hours as needed for Nausea and Vomiting (N/V). proMETHazin 2018-0 Yes [id number] 25mg Take 1 Univers e 25 mg 5-10 tablet by ity of tablet 00:00: mouth [place] 00 every 6 Medical (six) Branch hours as needed for Nausea and Vomiting (N/V). proMETHazin 0 Yes [id number] 25mg Take 1 Univers e 25 mg 5-10 tablet by ity of tablet 00:00: mouth [place] 00 every 6 Medical (six) Branch hours as needed for Nausea and Vomiting (N/V). proMETHazin 2019-0 Yes [id number] 25mg Take 1 Univers e 25 mg 5-10 tablet by ity of tablet 00:00: mouth [place] 00 every 6 Medical (six) Branch hours as needed for Nausea and Vomiting (N/V). proMETHazin 2019-0 Yes [id number] 25mg Take 1 Univers e 25 mg 5-10 tablet by ity of tablet 00:00: mouth [place] 00 every 6 Medical (six) Branch hours as needed for Nausea and Vomiting (N/V). proMETHazin Yes [id number] 25mg Take 1 Univers e 25 mg 5-10 tablet by ity of tablet 00:00: mouth [place] 00 every 6 Medical (six) Branch hours as needed for Nausea and Vomiting (N/V). proMETHazin Yes [id number] 25mg Take 1 Univers e 25 mg 5-10 tablet by ity of tablet 00:00: mouth [place] 00 every 6 Medical (six) Branch hours as needed for Nausea and Vomiting (N/V). proMETHazin 2020- No [id number] 25mg Take 1 Univers e 25 mg 5-10 10-16 tablet by ity of tablet 00:00: 00:00 mouth [place] 00 :00 every 6 Medical (six) Branch hours as needed for Nausea and Vomiting (N/V). acetaminoph 2019- No [id number] 1{capsu Take 1 Univers en-caff-but 5-10 08-14 le} capsule by i ty of albital 00:00: 00:00 mouth [place] (ESGIC) per 00 :00 every 6 Medic al capsule (six) Branch hours as needed (headache) . acetaminoph 2019- No [id number] 1{capsu Take 1 Univers en-caff-but 5-10 08-14 le} capsule by i ty of albital 00:00: 00:00 mouth [place] (ESGIC) per 00 :00 every 6 Medic al capsule (six) Branch hours as needed (headache) . proMETHazin 2018- Yes [id number] 25mg Take 1 Univers e 25 mg 1-17 tablet by ity of tablet 00:00: mouth [place] 00 every 6 Medical (six) Branch hours as needed for Nausea and Vomiting (N/V). proMETHazin 2018- Yes [id number] 25mg Take 1 Univers e 25 mg 1-17 tablet by ity of tablet 00:00: mouth [place] 00 every 6 Medical (six) Branch hours as needed for Nausea and Vomiting (N/V). proMETHazin Yes [id number] 25mg Take 1 Univers e 25 mg 1-17 tablet by ity of tablet 00:00: mouth [place] 00 every 6 Medical (six) Branch hours as needed for Nausea and Vomiting (N/V). proMETHazin Yes [id number] 25mg Take 1 Univers e 25 mg 1-17 tablet by ity of tablet 00:00: mouth [place] 00 every 6 Medical (six) Branch hours as needed for Nausea and Vomiting (N/V). proMETHazin Yes [id number] 25mg Take 1 Univers e 25 mg 1-17 tablet by ity of tablet 00:00: mouth [place] 00 every 6 Medical (six) Branch hours as needed for Nausea and Vomiting (N/V). proMETHazin Yes [id number] 25mg Take 1 Univers e 25 mg 1-17 tablet by ity of tablet 00:00: mouth [place] 00 every 6 Medical (six) Branch hours as needed for Nausea and Vomiting (N/V). proMETHazin Yes [id number] 25mg Take 1 Univers e 25 mg 1-17 tablet by ity of tablet 00:00: mouth [place] 00 every 6 Medical (six) Branch hours as needed for Nausea and Vomiting (N/V). proMETHazin Yes [id number] 25mg Take 1 Univers e 25 mg 1-17 tablet by ity of tablet 00:00: mouth [place] 00 every 6 Medical (six) Branch hours as needed for Nausea and Vomiting (N/V). proMETHazin Yes [id number] 25mg Take 1 Univers e 25 mg 1-17 tablet by ity of tablet 00:00: mouth [place] 00 every 6 Medical (six) Branch hours as needed for Nausea and Vomiting (N/V). proMETHazin 2019- No [id number] 25mg Take 1 Univers e 25 mg 1-17 08-14 tablet by ity of tablet 00:00: 00:00 mouth [place] 00 :00 every 6 Medical (six) Branch hours as needed for Nausea and Vomiting (N/V). proMETHazin 2019- No [id number] 25mg Take 1 Univers e 25 mg 1-17 08-14 tablet by ity of tablet 00:00: 00:00 mouth [place] 00 :00 every 6 Medical (six) Branch hours as needed for Nausea and Vomiting (N/V). No known No Univers medications ity [facility] No known No Univers medications ity [facility] No known No [facility] medications ity [facility] No known No Univers medications ity [facility] Immunizations Ordered Filled Immunization Date Status Comments [facility] e Immunization Name Name SARS-COV-2 COVID-19 2020-06-20 Completed Unive rsity of MODERNA VACCINE 00:00:00 [place] [facility] ical Branch SARS-COV-2 COVID-19 2020-06-20 Completed Unive rsity of MODERNA VACCINE 00:00:00 [facility] Branch SARS-COV-2 COVID-19 2020-06-20 Completed Unive rsity of MODERNA VACCINE 00:00:00 [place] [facility] ical Branch SARS-COV-2 COVID-19 2020-06-20 Completed Unive rsity of MODERNA VACCINE 00:00:00 [place] [facility] ical Branch SARS-COV-2 COVID-19 2020-06-20 Completed Unive rsity of MODERNA VACCINE 00:00:00 [facility] ical Branch SARS-COV-2 COVID-19 2020-06-20 Completed Unive rsity of MODERNA VACCINE 00:00:00 [facility] ical Branch SARS-COV-2 COVID-19 2020-06-20 Completed Unive rsity of MODERNA VACCINE 00:00:00 [facility] ical Branch SARS-COV-2 COVID-19 2020-06-20 Completed Unive rsity of MODERNA VACCINE 00:00:00 [facility] ical Branch SARS-COV-2 COVID-19 2020-06-20 Completed Unive rsity of MODERNA VACCINE 00:00:00 [facility] ical Branch SARS-COV-2 COVID-19 2020-06-20 Completed Unive rsity of MODERNA VACCINE 00:00:00 [place] [facility] ical Branch SARS-COV-2 COVID-19 2020-06-20 Completed Unive rsity of MODERNA VACCINE 00:00:00 [facility] ical Branch SARS-COV-2 COVID-19 2020-06-20 Completed Unive rsity of MODERNA VACCINE 00:00:00 [place] [facility] ical Branch SARS-COV-2 COVID-19 2020-06-20 Completed Unive rsity of MODERNA VACCINE 00:00:00 [facility] ical Branch SARS-COV-2 COVID-19 2020-06-20 Completed Unive rsity of MODERNA VACCINE 00:00:00 [facility] ical Branch SARS-COV-2 COVID-19 2020-06-20 Completed Unive rsity of MODERNA VACCINE 00:00:00 [place] [facility] Branch SARS-COV-2 COVID-19 2020-06-20 Completed [facility] VACCINE 00:00:00 [facility] SARS-COV-2 COVID-19 2020-06-20 Completed [facility] VACCINE 00:00:00 [facility] SARS-COV-2 COVID-19 2020-06-20 Completed [facility] VACCINE 00:00:00 [facility] SARS-COV-2 COVID-19 2020-06-20 Completed [facility] VACCINE 00:00:00 [facility] SARS-COV-2 COVID-19 2020-06-20 Completed [facility] VACCINE 00:00:00 [facility] SARS-COV-2 COVID-19 2020-06-20 Completed [facility] VACCINE 00:00:00 [facility] SARS-COV-2 COVID-19 2020-06-20 Completed [facility] VACCINE 00:00:00 [facility] SARS-COV-2 COVID-19 2020-06-20 Completed [facility] VACCINE 00:00:00 [facility] SARS-COV-2 COVID-19 2020-06-20 Completed [facility] VACCINE 00:00:00 [facility] SARS-COV-2 COVID-19 2020-06-20 Completed [facility] VACCINE 00:00:00 [facility] SARS-COV-2 COVID-19 2020-06-20 Completed [facility] VACCINE 00:00:00 [facility] SARS-COV-2 COVID-19 2020-06-20 Completed [facility] VACCINE 00:00:00 [facility] SARS-COV-2 COVID-19 2020-06-20 Completed [facility] VACCINE 00:00:00 [facility] SARS-COV-2 COVID-19 2020-06-20 Completed [facility] VACCINE 00:00:00 [facility] SARS-COV-2 COVID-19 2020-05-23 Completed [facility] VACCINE 00:00:00 [facility] SARS-COV-2 COVID-19 2020-05-23 Completed [facility] VACCINE 00:00:00 [facility] SARS-COV-2 COVID-19 2020-05-23 Completed [facility] VACCINE 00:00:00 [facility] SARS-COV-2 COVID-19 2020-05-23 Completed [facility] VACCINE 00:00:00 [facility] SARS-COV-2 COVID-19 2020-05-23 Completed [facility] VACCINE 00:00:00 [facility] SARS-COV-2 COVID-19 2020-05-23 Completed [facility] VACCINE 00:00:00 [facility] SARS-COV-2 COVID-19 2020-05-23 Completed [facility] VACCINE 00:00:00 [facility] SARS-COV-2 COVID-19 2020-05-23 Completed [facility] VACCINE 00:00:00 [facility] SARS-COV-2 COVID-19 2020-05-23 Completed [facility] VACCINE 00:00:00 [facility] SARS-COV-2 COVID-19 2020-05-23 Completed [facility] VACCINE 00:00:00 [facility] SARS-COV-2 COVID-19 2020-05-23 Completed [facility] VACCINE 00:00:00 [facility] SARS-COV-2 COVID-19 2020-05-23 Completed [facility] VACCINE 00:00:00 [facility] SARS-COV-2 COVID-19 2020-05-23 Completed [facility] VACCINE 00:00:00 [facility] SARS-COV-2 COVID-19 2020-05-23 Completed [facility] VACCINE 00:00:00 [facility] SARS-COV-2 COVID-19 2020-05-23 Completed [facility] VACCINE 00:00:00 [facility] SARS-COV-2 COVID-19 2020-05-23 Completed [facility] VACCINE 00:00:00 [facility] SARS-COV-2 COVID-19 2020-05-23 Completed [facility] VACCINE 00:00:00 [facility] SARS-COV-2 COVID-19 2020-05-23 Completed [facility] VACCINE 00:00:00 [facility] SARS-COV-2 COVID-19 2020-05-23 Completed [facility] VACCINE 00:00:00 [facility] SARS-COV-2 COVID-19 2020-05-23 Completed [facility] VACCINE 00:00:00 [facility] SARS-COV-2 COVID-19 2020-05-23 Completed [facility] VACCINE 00:00:00 [facility] SARS-COV-2 COVID-19 2020-05-23 Completed [facility] VACCINE 00:00:00 [facility] SARS-COV-2 COVID-19 2020-05-23 Completed [facility] VACCINE 00:00:00 [facility] SARS-COV-2 COVID-19 2020-05-23 Completed [facility] VACCINE 00:00:00 [facility] SARS-COV-2 COVID-19 2020-05-23 Completed [facility] VACCINE 00:00:00 [facility] SARS-COV-2 COVID-19 2020-05-23 Completed [facility] VACCINE 00:00:00 [facility] SARS-COV-2 COVID-19 2020-05-23 Completed [facility] VACCINE 00:00:00 [facility] SARS-COV-2 COVID-19 2020-05-23 Completed [facility] VACCINE 00:00:00 [facility] SARS-COV-2 COVID-19 2020-05-23 Completed [facility] VACCINE 00:00:00 [facility] SARS-COV-2 COVID-19 2020-05-23 Completed [facility] VACCINE 00:00:00 [facility] SARS-COV-2 COVID-19 2020-05-23 Completed [facility] VACCINE 00:00:00 [facility] SARS-COV-2 COVID-19 2020-05-23 Completed [facility] VACCINE 00:00:00 [facility] SARS-COV-2 COVID-19 2020-05-23 Completed [facility] VACCINE 00:00:00 [facility] SARS-COV-2 COVID-19 2020-05-23 Completed [facility] VACCINE 00:00:00 [facility] SARS-COV-2 COVID-19 2020-05-23 Completed [facility] VACCINE 00:00:00 [facility] TDAP 2020-05-08 Completed [facility] 00:00:00 [facility] TDAP 2020-05-08 Completed [facility] 00:00:00 [facility] TDAP 2020-05-08 Completed [facility] 00:00:00 [facility] TDAP 2020-05-08 Completed [facility] 00:00:00 [facility] TDAP 2020-05-08 Completed [facility] 00:00:00 [facility] TDAP 2020-05-08 Completed [facility] 00:00:00 [facility] TDAP 2020-05-08 Completed [facility] 00:00:00 [facility] TDAP 2020-05-08 Completed [facility] 00:00:00 [facility] TDAP 2020-05-08 Completed [facility] 00:00:00 [facility] TDAP 2020-05-08 Completed [facility] 00:00:00 [facility] TDAP 2020-05-08 Completed [facility] 00:00:00 [facility] TDAP 2020-05-08 Completed [facility] 00:00:00 [facility] TDAP 2020-05-08 Completed [facility] 00:00:00 [facility] TDAP 2020-05-08 Completed [facility] 00:00:00 [facility] TDAP 2020-05-08 Completed [facility] 00:00:00 [facility] TDAP 2020-05-08 Completed [facility] 00:00:00 [facility] TDAP 2020-05-08 Completed [facility] 00:00:00 [facility] TDAP 2020-05-08 Completed [facility] 00:00:00 [facility] TDAP 2020-05-08 Completed [facility] 00:00:00 [facility] TDAP 2020-05-08 Completed [facility] 00:00:00 [facility] TDAP 2020-05-08 Completed [facility] 00:00:00 [facility] TDAP 2020-05-08 Completed [facility] 00:00:00 [facility] TDAP 2020-05-08 Completed [facility] 00:00:00 [facility] TDAP 2020-05-08 Completed [facility] 00:00:00 [facility] TDAP 2020-05-08 Completed [facility] 00:00:00 [facility] TDAP 2020-05-08 Completed [facility] 00:00:00 [facility] TDAP 2020-05-08 Completed [facility] 00:00:00 [facility] TDAP 2020-05-08 Completed [facility] 00:00:00 [facility] TDAP 2020-05-08 Completed [facility] 00:00:00 [facility] TDAP 2020-05-08 Completed [facility] 00:00:00 [facility] TDAP 2020-05-08 Completed [facility] 00:00:00 [facility] TDAP 2020-05-08 Completed [facility] 00:00:00 [facility] TDAP 2020-05-08 Completed [facility] 00:00:00 [facility] TDAP 2020-05-08 Completed [facility] 00:00:00 [facility] TDAP 2020-05-08 Completed [facility] 00:00:00 [facility] TDAP 2020-05-08 Completed [facility] 00:00:00 [facility] TDAP 2020-05-08 Completed [facility] 00:00:00 [facility] TDAP 2020-05-08 Completed [facility] 00:00:00 [facility] TDAP 2020-05-08 Completed [facility] 00:00:00 [facility] TDAP 2020-05-08 Completed [facility] 00:00:00 [facility] TDAP 2020-05-08 Completed [facility] 00:00:00 [facility] TDAP 2020-05-08 Completed [facility] 00:00:00 [facility] 2018-10-13 Completed [facility] 00:00:00 [facility] 2018-10-13 Completed [facility] 00:00:00 [facility] 2018-10-13 Completed [facility] 00:00:00 [facility] 2018-10-13 Completed [facility] 00[facility]00:00 [facility] 2018-10-13 Completed [facility] 00[facility]00:00 [facility] 2018-10-13 Completed [facility] 00:00:00 [facility] 2018-10-13 Completed [facility] 00[facility]00:00 [facility] 2018-10-13 Completed [facility] 00:00:00 [facility] 2018-10-13 Completed [facility] 00[facility]00:00 [facility] 2018-10-13 Completed [facility] 00:00:00 [facility] 2018-10-13 Completed [facility] 00:00:00 [facility] 2018-10-13 Completed [facility] 00:00:00 [facility] 2018-10-13 Completed [facility] 00:00:00 [facility] 2018-10-13 Completed [facility] 00[facility]00:00 [facility] 2018-10-13 Completed [facility] 00:00:00 [facility] 2018-10-13 Completed [facility] 00:00:00 [facility] 2018-10-13 Completed [facility] 00:00:00 [facility] 2018-10-13 Completed [facility] 00:00:00 [facility] 2018-10-13 Completed [facility] 00:00:00 [facility] 2018-10-13 Completed [facility] 00:00:00 [facility] 2018-10-13 Completed [facility] 00:00:00 [facility] 2018-10-13 Completed [facility] 00:00:00 [facility] 2018-10-13 Completed [facility] 00:00:00 [facility] 2018-10-13 Completed [facility] 00:00:00 [facility] 2018-10-13 Completed [facility] 00:00:00 [facility] MMR 2018-10-13 Completed [facility] 00:00:00 [facility] MMR 2018-10-13 Completed [facility] 00:00:00 [facility] 2018-10-13 Completed [facility] 00:00:00 [facility] 2018-10-13 Completed [facility] 00:00:00 [facility] 2018-10-13 Completed [facility] 00:00:00 [facility] 2018-10-13 Completed [facility] 00:00:00 [facility] 2018-10-13 Completed [facility] 00[facility]00:00 [facility] MMR 2018-10-13 Completed [facility] 00:00:00 [facility] MMR 2018-10-13 Completed [facility] 00:00:00 [facility] MMR 2018-10-13 Completed [facility] 00:00:00 [facility] 2018-10-13 Completed [facility] 00:00:00 [facility] M[facility] 2018-10-13 Completed [facility] 00:00:00 [facility] 2018-10-13 Completed [facility] 00[facility]00:00 [facility] M[facility] 2018-10-13 Completed [facility] 00:00:00 [facility] 2018-10-13 Completed [facility] 00:00:00 [facility] 2018-10-13 Completed [facility] 00:00:00 [facility] 2018-10-13 Completed [facility] 00:00:00 [facility] 2018-10-13 Completed [facility] 00:00:00 [facility] 2018-10-13 Completed [facility] 00:00:00 [facility] 2018-10-13 Completed [facility] 00:00:00 [facility] 2018-10-13 Completed [facility] 00:00:00 [facility] 2018-10-13 Completed [facility] 00:00:00 [facility] 2018-10-13 Completed [facility] 00:00:00 [facility] 2018-10-13 Completed [facility] 00:00:00 [facility] 2018-10-13 Completed [facility] 00:00:00 [facility] 2018-10-13 Completed [facility] 00:00:00 [facility] MMR 2018-10-13 Completed [facility] 00:00:00 [facility] 2018-10-13 Completed [facility] 00:00:00 [facility] MMR 2018-10-13 Completed [facility] 00:00:00 [facility] MMR 2018-10-13 Completed [facility] 00:00:00 [facility] MMR 2018-10-13 Completed [facility] 00:00:00 [facility] MMR 2018-10-13 Completed [facility] 00[facility]00:00 [facility] 2018-10-13 Completed [facility] 00:00:00 [facility] 2018-10-13 Completed [facility] 00:00:00 [facility] MMR 2018-10-13 Completed [facility] 00:00:00 [facility] MMR 2018-10-13 Completed [facility] 00:00:00 [facility] MMR 2018-10-13 Completed [facility] 00:00:00 [facility] MMR 2018-10-13 Completed [facility] 00:00:00 [facility] MMR 2018-10-13 Completed [facility] 00:00:00 [facility] MMR 2018-10-13 Completed [facility] 00:00:00 [facility] MMR 2018-10-13 Completed [facility] 00:00:00 [facility] MMR 2018-10-13 Completed [facility] 00:00:00 [facility] MMR 2018-10-13 Completed [facility] 00:00:00 [facility] MMR 2018-10-13 Completed [facility] 00:00:00 [facility] TDAP (ADACEL) 2018-07-29 Completed [facility] of VACCINE 00:00:00 [facility] TDAP (ADACEL) 2018-07-29 Completed [facility] VACCINE 00:00:00 [facility] TDAP (ADACEL) 2018-07-29 Completed [facility] VACCINE 00:00:00 [facility] TDAP (ADACEL) 2018-07-29 Completed [facility] VACCINE 00:00:00 [facility] TDAP (ADACEL) 2018-07-29 Completed [facility] VACCINE 00:00:00 [facility] TDAP (ADACEL) 2018-07-29 Completed [facility] VACCINE 00:00:00 [facility] TDAP (ADACEL) 2018-07-29 Completed [facility] VACCINE 00:00:00 [facility] TDAP (ADACEL) 2018-07-29 Completed [facility] VACCINE 00:00:00 [facility] TDAP (ADACEL) 2018-07-29 Completed [facility] VACCINE 00:00:00 [facility] TDAP (ADACEL) 2018-07-29 Completed [facility] VACCINE 00:00:00 [facility] TDAP (ADACEL) 2018-07-29 Completed [facility] VACCINE 00:00:00 [facility] TDAP (ADACEL) 2018-07-29 Completed [facility] VACCINE 00:00:00 [facility] TDAP (ADACEL) 2018-07-29 Completed [facility] VACCINE 00:00:00 [facility] TDAP (ADACEL) 2018-07-29 Completed [facility] VACCINE 00:00:00 [facility] TDAP (ADACEL) 2018-07-29 Completed [facility] VACCINE 00:00:00 [facility] TDAP (ADACEL) 2018-07-29 Completed [facility] VACCINE 00:00:00 [facility] TDAP (ADACEL) 2018-07-29 Completed [facility] VACCINE 00:00:00 [facility] TDAP (ADACEL) 2018-07-29 Completed [facility] VACCINE 00:00:00 [facility] TDAP (ADACEL) 2018-07-29 Completed [facility] VACCINE 00:00:00 [facility] TDAP (ADACEL) 2018-07-29 Completed [facility] VACCINE 00:00:00 [facility] TDAP (ADACEL) 2018-07-29 Completed [facility] VACCINE 00:00:00 [facility] TDAP (ADACEL) 2018-07-29 Completed [facility] VACCINE 00:00:00 [facility] TDAP (ADACEL) 2018-07-29 Completed [facility] VACCINE 00:00:00 [facility] TDAP (ADACEL) 2018-07-29 Completed [facility] VACCINE 00:00:00 [facility] TDAP (ADACEL) 2018-07-29 Completed [facility] VACCINE 00:00:00 [facility] TDAP (ADACEL) 2018-07-29 Completed [facility] VACCINE 00:00:00 [facility] TDAP (ADACEL) 2018-07-29 Completed [facility] VACCINE 00:00:00 [facility] TDAP (ADACEL) 2018-07-29 Completed [facility] VACCINE 00:00:00 [facility] TDAP (ADACEL) 2018-07-29 Completed [facility] VACCINE 00:00:00 [facility] TDAP (ADACEL) 2018-07-29 Completed [facility] VACCINE 00:00:00 [facility] TDAP (ADACEL) 2018-07-29 Completed [facility] VACCINE 00:00:00 [facility] TDAP (ADACEL) 2018-07-29 Completed [facility] VACCINE 00:00:00 [facility] TDAP (ADACEL) 2018-07-29 Completed [facility] VACCINE 00:00:00 [facility] TDAP (ADACEL) 2018-07-29 Completed [facility] VACCINE 00:00:00 [facility] TDAP (ADACEL) 2018-07-29 Completed [facility] VACCINE 00:00:00 [facility] TDAP (ADACEL) 2018-07-29 Completed [facility] VACCINE 00:00:00 [facility] TDAP (ADACEL) 2018-07-29 Completed [facility] VACCINE 00:00:00 [facility] TDAP (ADACEL) 2018-07-29 Completed [facility] VACCINE 00:00:00 [facility] TDAP (ADACEL) 2018-07-29 Completed [facility] VACCINE 00:00:00 [facility] TDAP (ADACEL) 2018-07-29 Completed [facility] VACCINE 00:00:00 [facility] TDAP (ADACEL) 2018-07-29 Completed [facility] VACCINE 00:00:00 [facility] TDAP (ADACEL) 2018-07-29 Completed [facility] VACCINE 00:00:00 [facility] TDAP (ADACEL) 2018-07-29 Completed [facility] VACCINE 00:00:00 [facility] TDAP (ADACEL) 2018-07-29 Completed [facility] VACCINE 00:00:00 [facility] TDAP (ADACEL) 2018-07-29 Completed [facility] VACCINE 00:00:00 [facility] TDAP (ADACEL) 2018-07-29 Completed [facility] VACCINE 00:00:00 [facility] TDAP (ADACEL) 2018-07-29 Completed [facility] VACCINE 00:00:00 [facility] TDAP (ADACEL) 2018-07-29 Completed [facility] VACCINE 00:00:00 [facility] TDAP (ADACEL) 2018-07-29 Completed [facility] VACCINE 00:00:00 [facility] TDAP (ADACEL) 2018-07-29 Completed [facility] VACCINE 00:00:00 [facility] TDAP (ADACEL) 2018-07-29 Completed [facility] VACCINE 00:00:00 [facility] TDAP (ADACEL) 2018-07-29 Completed [facility] VACCINE 00:00:00 [facility] TDAP (ADACEL) 2018-07-29 Completed [facility] VACCINE 00:00:00 [facility] TDAP (ADACEL) 2018-07-29 Completed [facility] VACCINE 00:00:00 [facility] TDAP (ADACEL) 2018-07-29 Completed [facility] VACCINE 00:00:00 [facility] TDAP (ADACEL) 2018-07-29 Completed [facility] VACCINE 00:00:00 [facility] TDAP (ADACEL) 2018-07-29 Completed [facility] VACCINE 00:00:00 [facility] TDAP (ADACEL) 2018-07-29 Completed [facility] VACCINE 00:00:00 [facility] TDAP (ADACEL) 2018-07-29 Completed [facility] VACCINE 00:00:00 [facility] TDAP (ADACEL) 2018-07-29 Completed [facility] VACCINE 00:00:00 [facility] TDAP (ADACEL) 2018-07-29 Completed [facility] VACCINE 00:00:00 [facility] TDAP (ADACEL) 2018-07-29 Completed [facility] VACCINE 00:00:00 [facility] TDAP (ADACEL) 2018-07-29 Completed [facility] VACCINE 00:00:00 [facility] TDAP (ADACEL) 2018-07-29 Completed [facility] VACCINE 00:00:00 [facility] TDAP (ADACEL) 2018-07-29 Completed [facility] VACCINE 00:00:00 [facility] TDAP (ADACEL) 2018-07-29 Completed [facility] VACCINE 00:00:00 [facility] TDAP (ADACEL) 2018-07-29 Completed [facility] VACCINE 00:00:00 [facility] TDAP (ADACEL) 2018-07-29 Completed [facility] VACCINE 00:00:00 [facility] TDAP (ADACEL) 2018-07-29 Completed [facility] VACCINE 00:00:00 [facility] TDAP (ADACEL) 2018-07-29 Completed [facility] VACCINE 00:00:00 [facility] TDAP (ADACEL) 2018-07-29 Completed [facility] VACCINE 00:00:00 [facility] TDAP (ADACEL) 2018-07-29 Completed [facility] VACCINE 00:00:00 [facility] TDAP (ADACEL) 2018-07-29 Completed [facility] VACCINE 00:00:00 [facility] TDAP (ADACEL) 2018-07-29 Completed [facility] VACCINE 00:00:00 [facility] TDAP (ADACEL) 2018-07-29 Completed [facility] VACCINE 00:00:00 [facility] TDAP (ADACEL) 2018-07-29 Completed [facility] VACCINE 00:00:00 [facility] TDAP (ADACEL) 2018-07-29 Completed [facility] VACCINE 00:00:00 [facility] TDAP (ADACEL) 2018-07-29 Completed [facility] VACCINE 00:00:00 [facility] TDAP (ADACEL) 2018-07-29 Completed [facility] VACCINE 00:00:00 [facility] TDAP (ADACEL) 2018-07-29 Completed [facility] VACCINE 00:00:00 [facility] TDAP (ADACEL) 2018-07-29 Completed [facility] VACCINE 00:00:00 [facility] TDAP (ADACEL) 2018-07-29 Completed [facility] VACCINE 00:00:00 [facility] TDAP 2009-02-17 Completed [facility] 00:00:00 [facility] TDAP 2009-02-17 Completed [facility] 00:00:00 [facility] TDAP 2009-02-17 Completed [facility] 00:00:00 [facility] TDAP 2009-02-17 Completed [facility] 00:00:00 [facility] TDAP 2009-02-17 Completed [facility] 00:00:00 [facility] TDAP 2009-02-17 Completed [facility] 00:00:00 [facility] TDAP 2009-02-17 Completed [facility] 00:00:00 [facility] TDAP 2009-02-17 Completed [facility] 00:00:00 [facility] TDAP 2009-02-17 Completed [facility] 00:00:00 [facility] TDAP 2009-02-17 Completed [facility] 00:00:00 [facility] TDAP 2009-02-17 Completed [facility] 00:00:00 [facility] TDAP 2009-02-17 Completed [facility] 00:00:00 [facility] TDAP 2009-02-17 Completed [facility] 00:00:00 [facility] TDAP 2009-02-17 Completed [facility] 00:00:00 [facility] TDAP 2009-02-17 Completed [facility] 00:00:00 [facility] TDAP 2009-02-17 Completed [facility] 00:00:00 [facility] TDAP 2009-02-17 Completed [facility] 00:00:00 [facility] TDAP 2009-02-17 Completed [facility] 00:00:00 [facility] TDAP 2009-02-17 Completed [facility] 00:00:00 [facility] TDAP 2009-02-17 Completed [facility] 00:00:00 [facility] TDAP 2009-02-17 Completed [facility] 00:00:00 [facility] TDAP 2009-02-17 Completed [facility] 00:00:00 [facility] TDAP 2009-02-17 Completed [facility] 00:00:00 [facility] TDAP 2009-02-17 Completed [facility] 00:00:00 [facility] TDAP 2009-02-17 Completed [facility] 00:00:00 [facility] TDAP 2009-02-17 Completed [facility] 00:00:00 [facility] TDAP 2009-02-17 Completed [facility] 00:00:00 [facility] TDAP 2009-02-17 Completed [facility] 00:00:00 [facility] TDAP 2009-02-17 Completed [facility] 00:00:00 [facility] TDAP 2009-02-17 Completed [facility] 00:00:00 [facility] TDAP 2009-02-17 Completed [facility] 00:00:00 [facility] TDAP 2009-02-17 Completed [facility] 00:00:00 [facility] TDAP 2009-02-17 Completed [facility] 00:00:00 [facility] TDAP 2009-02-17 Completed [facility] 00:00:00 [facility] Tdap 2009-02-17 Completed [facility] 00:00:00 [facility] Tdap 2009-02-17 Completed [facility] 00:00:00 [facility] Tdap 2009-02-17 Completed [facility] 00:00:00 [facility] Tdap 2009-02-17 Completed [facility] 00:00:00 [facility] Tdap 2009-02-17 Completed [facility] 00:00:00 [facility] Tdap 2009-02-17 Completed [facility] 00:00:00 [facility] Tdap 2009-02-17 Completed [facility] 00:00:00 [facility] Tdap 2009-02-17 Completed [facility] 00:00:00 [facility] Tdap 2009-02-17 Completed [facility] 00:00:00 [facility] Tdap 2009-02-17 Completed [facility] 00:00:00 [facility] Tdap 2009-02-17 Completed [facility] 00:00:00 [facility] Tdap 2009-02-17 Completed [facility] 00:00:00 [facility] Tdap 2009-02-17 Completed [facility] 00:00:00 [facility] Tdap 2009-02-17 Completed [facility] 00:00:00 [facility] Tdap 2009-02-17 Completed [facility] 00:00:00 [facility] Tdap 2009-02-17 Completed [facility] 00:00:00 [facility] Tdap 2009-02-17 Completed [facility] 00:00:00 [facility] Tdap 2009-02-17 Completed [facility] 00:00:00 [facility] Tdap 2009-02-17 Completed [facility] 00:00:00 [facility] Tdap 2009-02-17 Completed [facility] 00:00:00 [facility] Tdap 2009-02-17 Completed [facility] 00:00:00 [facility] TDAP 2009-02-17 Completed [facility] 00:00:00 [facility] TDAP 2009-02-17 Completed [facility] 00:00:00 [facility] TDAP 2009-02-17 Completed [facility] 00[facility]00:00 [facility] TDAP 2009-02-17 Completed [facility] 00:00:00 [facility] TDAP 2009-02-17 Completed [facility] 00:00:00 [facility] TDAP 2009-02-17 Completed [facility] 00:00:00 [facility] TDAP 2009-02-17 Completed [facility] 00:00:00 [facility] TDAP 2009-02-17 Completed [facility] 00:00:00 [facility] TDAP 2009-02-17 Completed [facility] 00[facility]00:00 [facility] TDAP 2009-02-17 Completed [facility] 00[facility]00:00 [facility] TDAP 2009-02-17 Completed [facility] 00[facility]00:00 [facility] TDAP 2009-02-17 Completed [facility] 00:00:00 [facility] TDAP 2009-02-17 Completed [facility] 00[facility]00:00 [facility] TDAP 2009-02-17 Completed [facility] 00:00:00 [facility] TDAP 2009-02-17 Completed [facility] 00:00:00 [facility] TDAP 2009-02-17 Completed [facility] 00:00:00 [facility] TDAP 2009-02-17 Completed [facility] 00:00:00 [facility] TDAP 2009-02-17 Completed [facility] 00:00:00 [facility] TDAP 2009-02-17 Completed [facility] 00:00:00 [facility] TDAP 2009-02-17 Completed [facility] 00[facility]00:00 [facility] TDAP 2009-02-17 Completed [facility] 00[facility]00:00 [facility] TDAP 2009-02-17 Completed [facility] 00:00:00 [facility] TDAP 2009-02-17 Completed [facility] 00[facility]00:00 [facility] TDAP 2009-02-17 Completed [facility] 00:00:00 [facility] TDAP 2009-02-17 Completed [facility] 00:00:00 [facility] TDAP 2009-02-17 Completed [facility] 00:00:00 [facility] TDAP 2009-02-17 Completed [facility] 00:00:00 [facility] Vital Signs Vital Name Observation Time Observation Value Comments Source Systolic blood 2020-08-30 13:38:00 125 mm[Hg] [facility] Diastolic blood 2020-08-30 13:38:00 80 mm[Hg] [facility] Heart rate 2020-08-30 13:38:00 67 /min [facility] Body temperature 2020-08-30 13:38:00 36.5 Anel [facility] Respiratory rate 2020-08-30 13:38:00 16 /min [facility] Body height 2020-08-30 13:38:00 170.2 cm [facility] Body weight 2020-08-30 13:38:00 103.023 kg [facility] BMI 2020-08-30 13:38:00 35.57 kg/m2 [facility] Systolic blood 2020-08-07 14:31:00 118 mm[Hg] [facility] Diastolic blood 2020-08-07 14:31:00 79 mm[Hg] [facility] Heart rate 2020-08-07 14:31:00 60 /min [facility] Body temperature 2020-08-07 14:31:00 36.83 Anel [facility] Respiratory rate 2020-08-07 14:31:00 16 /min [facility] Body height 2020-08-07 14:31:00 170.2 cm [facility] Body weight 2020-08-07 14:31:00 101.379 kg [facility] BMI 2020-08-07 14:31:00 35.01 kg/m2 [facility] Systolic blood 2020-07-16 12:54:00 124 mm[Hg] [facility] Diastolic blood 2020-07-16 12:54:00 74 mm[Hg] [facility] Heart rate 2020-07-16 12:54:00 67 /min [facility] Body temperature 2020-07-16 12:54:00 36.22 Anel [facility] Respiratory rate 2020-07-16 12:54:00 18 /min [facility] Oxygen saturation in 2020-07-16 12:54:00 97 /min [facility] Arterial blood by [facility] Systolic blood 2020-07-15 15:20:00 120 mm[Hg] [facility] Diastolic blood 2020-07-15 15:20:00 53 mm[Hg] [facility] Heart rate 2020-07-15 15:20:00 85 /min [facility] Respiratory rate 2020-07-15 15:20:00 18 /min [facility] Oxygen saturation in 2020-07-15 15:20:00 100 /min [facility] Arterial blood by [facility] Body temperature 2020-07-15 14:20:00 36.72 Anel [facility] Systolic blood 2020-07-10 19:56:00 130 mm[Hg] [facility] Diastolic blood 2020-07-10 19:56:00 81 mm[Hg] [facility] Heart rate 2020-07-10 19:56:00 87 /min [facility] Body temperature 2020-07-10 19:56:00 36.78 Anel [facility] Respiratory rate 2020-07-10 19:56:00 16 /min [facility] Body height 2020-07-10 19:56:00 170.2 cm [facility] Body weight 2020-07-10 19:56:00 111.613 kg [facility] BMI 2020-07-10 19:56:00 38.54 kg/m2 [facility] Systolic blood 2020-07-06 19:35:00 132 mm[Hg] [facility] Diastolic blood 2020-07-06 19:35:00 72 mm[Hg] [facility] Heart rate 2020-07-06 19:35:00 98 /min [facility] Body temperature 2020-07-06 19:35:00 36.78 Anel [facility] Respiratory rate 2020-07-06 19:35:00 16 /min [facility] Body height 2020-07-06 19:35:00 170.2 cm [facility] Body weight 2020-07-06 19:35:00 110.224 kg [facility] BMI 2020-07-06 19:35:00 38.06 kg/m2 [facility] Systolic blood 2020-07-03 19:46:00 125 mm[Hg] [facility] Diastolic blood 2020-07-03 19:46:00 79 mm[Hg] [facility] Heart rate 2020-07-03 19:46:00 99 /min [facility] Body temperature 2020-07-03 19:46:00 36.89 Anel [facility] Respiratory rate 2020-07-03 19:46:00 16 /min [facility] Body height 2020-07-03 19:46:00 170.2 cm [facility] Body weight 2020-07-03 19:46:00 110.309 kg [facility] BMI 2020-07-03 19:46:00 38.09 kg/m2 [facility] Systolic blood 2020-06-29 18:35:00 135 mm[Hg] [facility] Diastolic blood 2020-06-29 18:35:00 71 mm[Hg] [facility] Heart rate 2020-06-29 18:35:00 94 /min [facility] Body temperature 2020-06-29 18:35:00 36.44 Anel [facility] Respiratory rate 2020-06-29 18:35:00 16 /min [facility] Body height 2020-06-29 18:35:00 170.2 cm [facility] Body weight 2020-06-29 18:35:00 109.487 kg [facility] BMI 2020-06-29 18:35:00 37.80 kg/m2 [facility] Systolic blood 2020-06-26 19:04:00 137 mm[Hg] [facility] Diastolic blood 2020-06-26 19:04:00 79 mm[Hg] [facility] Heart rate 2020-06-26 19:04:00 97 /min [facility] Body temperature 2020-06-26 19:04:00 36.89 Anel [facility] Respiratory rate 2020-06-26 19:04:00 16 /min [facility] Body height 2020-06-26 19:04:00 170.2 cm [facility] Body weight 2020-06-26 19:04:00 110.252 kg [facility] BMI 2020-06-26 19:04:00 38.07 kg/m2 [facility] Systolic blood 2020-06-22 14:09:00 127 mm[Hg] [facility] Diastolic blood 2020-06-22 14:09:00 72 mm[Hg] [facility] Heart rate 2020-06-22 14:09:00 94 /min [facility] Body temperature 2020-06-22 14:09:00 36.67 Anel [facility] Respiratory rate 2020-06-22 14:09:00 16 /min [facility] Body height 2020-06-22 14:09:00 170.2 cm [facility] Body weight 2020-06-22 14:09:00 108.977 kg [facility] BMI 2020-06-22 14:09:00 37.63 kg/m2 [facility] Heart rate 2020-06-13 23:55:00 105 /min [facility] Oxygen saturation in 2020-06-13 23:55:00 100 /min [facility] Arterial blood by [facility] Systolic blood 2020-06-13 23:30:00 138 mm[Hg] [facility] Diastolic blood 2020-06-13 23:30:00 76 mm[Hg] [facility] Body temperature 2020-06-13 23:17:00 36.89 Anel [facility] Respiratory rate 2020-06-13 23:17:00 18 /min [facility] Body height 2020-06-13 23:17:00 170.2 cm [facility] Body weight 2020-06-13 23:17:00 108.773 kg [facility] BMI 2020-06-13 23:17:00 37.56 kg/m2 [facility] Systolic blood 2020-06-06 00:45:00 146 mm[Hg] [facility] Diastolic blood 2020-06-06 00:45:00 84 mm[Hg] [facility] Heart rate 2020-06-06 00:45:00 99 /min [facility] Oxygen saturation in 2020-06-06 00:45:00 100 /min [facility] blood by [facility] Body temperature 2020-06-05 23:36:00 37.06 Anel [facility] Respiratory rate 2020-06-05 23:36:00 18 /min [facility] Body height 2020-06-05 23:36:00 170.2 cm [facility] Body weight 2020-06-05 23:36:00 109.045 kg [facility] BMI 2020-06-05 23:36:00 37.65 kg/m2 [facility] Heart rate 2020-05-31 02:00:00 99 /min [facility] Oxygen saturation in 2020-05-31 01:45:00 99 /min [facility] Arterial blood by [facility] Systolic blood 2020-05-31 01:15:00 134 mm[Hg] [facility] Diastolic blood 2020-05-31 01:15:00 70 mm[Hg] [facility] Body temperature 2020-05-31 01:15:00 36.83 Anel [facility] Respiratory rate 2020-05-31 01:15:00 20 /min [facility] Body height 2020-05-31 01:15:00 170.2 cm [facility] Body weight 2020-05-31 01:15:00 108.863 kg [facility] BMI 2020-05-31 01:15:00 37.59 kg/m2 [facility] Systolic blood 2020-05-22 15:40:00 124 mm[Hg] [facility] Diastolic blood 2020-05-22 15:40:00 72 mm[Hg] [facility] Heart rate 2020-05-22 15:40:00 90 /min [facility] Body temperature 2020-05-22 15:40:00 36.89 Anel [facility] Respiratory rate 2020-05-22 15:40:00 16 /min [facility] Body height 2020-05-22 15:40:00 170.2 cm [facility] Body weight 2020-05-22 15:40:00 107.134 kg [facility] BMI 2020-05-22 15:40:00 36.99 kg/m2 [facility] Systolic blood 2020-05-08 14:33:00 127 mm[Hg] [facility] Diastolic blood 2020-05-08 14:33:00 74 mm[Hg] [facility] Heart rate 2020-05-08 14:32:00 99 /min [facility] Body temperature 2020-05-08 14:32:00 36.61 Anel [facility] Respiratory rate 2020-05-08 14:32:00 16 /min [facility] Body height 2020-05-08 14:32:00 170.2 cm [facility] Body weight 2020-05-08 14:32:00 107.106 kg [facility] BMI 2020-05-08 14:32:00 36.98 kg/m2 [facility] Systolic blood 2020-04-25 15:50:00 139 mm[Hg] [facility] Diastolic blood 2020-04-25 15:50:00 83 mm[Hg] [facility] Heart rate 2020-04-25 15:06:00 111 /min [facility] Body temperature 2020-04-25 15:06:00 36.72 Anel [facility] Respiratory rate 2020-04-25 15:06:00 16 /min [facility] Body height 2020-04-25 15:06:00 170.2 cm [facility] Body weight 2020-04-25 15:06:00 106.17 kg [facility] BMI 2020-04-25 15:06:00 36.66 kg/m2 [facility] Systolic blood 2020-04-20 16:25:00 123 mm[Hg] [facility] Diastolic blood 2020-04-20 16:25:00 68 mm[Hg] [facility] Heart rate 2020-04-20 16:25:00 88 /min [facility] Body temperature 2020-04-20 16:25:00 36.61 Anel [facility] Respiratory rate 2020-04-20 16:25:00 16 /min [facility] Body height 2020-04-20 16:25:00 170.2 cm [facility] Body weight 2020-04-20 16:25:00 105.858 kg [facility] BMI 2020-04-20 16:25:00 36.55 kg/m2 [facility] Systolic blood 2020-02-29 19:10:00 134 mm[Hg] [facility] Diastolic blood 2020-02-29 19:10:00 80 mm[Hg] [facility] Heart rate 2020-02-29 19:10:00 100 /min [facility] Body temperature 2020-02-29 19:10:00 36.72 Anel [facility] Respiratory rate 2020-02-29 19:10:00 16 /min [facility] Body height 2020-02-29 19:10:00 170.2 cm [facility] Body weight 2020-02-29 19:10:00 100.018 kg [facility] BMI 2020-02-29 19:10:00 34.54 kg/m2 [facility] Systolic blood 2020-02-01 19:50:00 138 mm[Hg] [facility] Diastolic blood 2020-02-01 19:50:00 73 mm[Hg] [facility] Heart rate 2020-02-01 19:50:00 86 /min [facility] Body temperature 2020-02-01 19:50:00 36.83 Anel [facility] Respiratory rate 2020-02-01 19:50:00 16 /min [facility] Body height 2020-02-01 19:50:00 170.2 cm [facility] Body weight 2020-02-01 19:50:00 98.544 kg [facility] BMI 2020-02-01 19:50:00 34.03 kg/m2 [facility] Systolic blood 2020-01-04 20:39:00 135 mm[Hg] [facility] Diastolic blood 2020-01-04 20:39:00 75 mm[Hg] [facility] Heart rate 2020-01-04 20:38:00 94 /min [facility] Body temperature 2020-01-04 20:38:00 36.5 Anel [facility] Respiratory rate 2020-01-04 20:38:00 16 /min [facility] Body height 2020-01-04 20:38:00 170.2 cm [facility] Body weight 2020-01-04 20:38:00 99.139 kg [facility] BMI 2020-01-04 20:38:00 34.23 kg/m2 [facility] Systolic blood 2019-12-03 20:12:00 128 mm[Hg] [facility] Diastolic blood 2019-12-03 20:12:00 68 mm[Hg] [facility] Heart rate 2019-12-03 19:16:00 90 /min [facility] Body temperature 2019-12-03 19:16:00 36.61 Anel [facility] Respiratory rate 2019-12-03 19:16:00 18 /min [facility] Body height 2019-12-03 19:16:00 170.2 cm [facility] [place] Body weight 2019-12-03 19:16:00 102.059 kg [facility] BMI 2019-12-03 19:16:00 35.24 kg/m2 [facility] Oxygen saturation in 2019-12-03 19:16:00 100 /min [facility] Arterial blood by [facility] Systolic blood 2019-03-12 20:41:00 132 mm[Hg] [facility] Diastolic blood 2019-03-12 20:41:00 73 mm[Hg] [facility]ity [facility] pressure [facility] Heart rate 2019-03-12 20:41:00 95 /min [facility] Body temperature 2019-03-12 20:41:00 36.78 Anel [facility] Respiratory rate 2019-03-12 20:41:00 16 /min [facility] Body height 2019-03-12 20:41:00 170.2 cm [facility] Body weight 2019-03-12 20:41:00 89.841 kg [facility] BMI 2019-03-12 20:41:00 31.02 kg/m2 [facility] Systolic blood 2019-03-12 20:41:00 132 mm[Hg] [facility] Diastolic blood 2019-03-12 20:41:00 73 mm[Hg] [facility] Heart rate 2019-03-12 20:41:00 95 /min [facility] Body temperature 2019-03-12 20:41:00 36.78 Anel [facility] Respiratory rate 2019-03-12 20:41:00 16 /min [facility] Body height 2019-03-12 20:41:00 170.2 cm [facility] Body weight 2019-03-12 20:41:00 89.841 kg [facility] BMI 2019-03-12 20:41:00 31.02 kg/m2 [facility] Systolic blood 2018-11-02 14:26:00 113 mm[Hg] [facility] Diastolic blood 2018-11-02 14:26:00 67 mm[Hg] [facility] Heart rate 2018-11-02 14:26:00 50 /min [facility] Body temperature 2018-11-02 14:26:00 36.61 Anel [facility] Respiratory rate 2018-11-02 14:26:00 16 /min [facility] Body height 2018-11-02 14:26:00 170.2 cm [facility] Body weight 2018-11-02 14:26:00 86.779 kg [facility] BMI 2018-11-02 14:26:00 29.96 kg/m2 [facility] Systolic blood 2018-10-13 13:00:00 125 mm[Hg] [facility] Diastolic blood 2018-10-13 13:00:00 68 mm[Hg] [facility] Heart rate 2018-10-13 13:00:00 69 /min [facility] Body temperature 2018-10-13 13:00:00 36.83 Anel [facility] Respiratory rate 2018-10-13 13:00:00 18 /min [facility] Oxygen saturation in 2018-10-13 13:00:00 98 /min [facility] Arterial blood by [facility] Body height 2018-10-11 14:30:00 170.2 cm [facility] Body weight 2018-10-11 14:30:00 96.48 kg [facility] BMI 2018-10-11 14:30:00 33.31 kg/m2 [facility] Systolic blood 2018-10-07 16:39:00 129 mm[Hg] [facility] Diastolic blood 2018-10-07 16:39:00 71 mm[Hg] [facility] Heart rate 2018-10-07 16:39:00 86 /min [facility] Body temperature 2018-10-07 16:39:00 36.67 Anel [facility] Respiratory rate 2018-10-07 16:39:00 16 /min [facility] Body height 2018-10-07 16:39:00 170.2 cm [facility] Body weight 2018-10-07 16:39:00 96.673 kg [facility] BMI 2018-10-07 16:39:00 33.38 kg/m2 [facility] Systolic blood 2018-09-30 15:59:00 125 mm[Hg] [facility] Diastolic blood 2018-09-30 15:59:00 70 mm[Hg] [facility] Heart rate 2018-09-30 15:59:00 82 /min [facility] Body temperature 2018-09-30 15:59:00 36.17 Anel [facility] Respiratory rate 2018-09-30 15:59:00 16 /min [facility] Body height 2018-09-30 15:59:00 170.2 cm [facility] Body weight 2018-09-30 15:59:00 97.58 kg [facility] BMI 2018-09-30 15:59:00 33.69 kg/m2 [facility] Systolic blood 2018-09-28 17:05:00 123 mm[Hg] [facility] Diastolic blood 2018-09-28 17:05:00 75 mm[Hg] [facility] Heart rate 2018-09-28 17:05:00 106 /min [facility] Respiratory rate 2018-09-28 17:05:00 18 /min [facility] Body height 2018-09-28 17:05:00 170.2 cm [facility] Body weight 2018-09-28 17:05:00 95.618 kg [facility] BMI 2018-09-28 17:05:00 33.02 kg/m2 [facility] Oxygen saturation in 2018-09-28 17:05:00 98 /min [facility] Arterial blood by [facility] Pulse [facility] Branch Systolic blood 2018-09-23 14:12:00 132 mm[Hg] Univer sity of pressure [facility] Diastolic blood 2018-09-23 14:12:00 73 mm[Hg] Unive rsity [facility] Heart rate 2018-09-23 14:12:00 99 /min [facility] Body temperature 2018-09-23 14:12:[address] [facility] 2018-09-23 14:12:00 16 /min [facility] Body height 2018-09-23 14:12:00 170.2 cm [facility] Body weight 2018-09-23 14:12:00 95.482 kg [facility] BMI 2018-09-23 14:12:00 32.97 kg/m2 [facility] Procedures Procedure Date / Time Performing Clinician Source Performed CBC WITH DIFF 2020-07-16 10:20:00 Mike [facility] CBC WITH DIFF 2020-07-16 10:20:00 [facility] TUBAL LIGATION 2020-07-15 22:29:00 Anibal [facility] VENOUS CORD GAS 2020-07-15 14:21:00 Evelyn [facility] VENOUS CORD GAS 2020-07-15 14:21:00 Evelyn [facility] POCT GLUCOSE (AUTOMATED) 2020-07-15 11:56:00 [place], Chasey [facility] POCT GLUCOSE (AUTOMATED) 2020-07-15 11:56:00 [place], Chasey [facility] POCT GLUCOSE (AUTOMATED) 2020-07-15 08:10:00 [place], Chasey [facility] POCT GLUCOSE (AUTOMATED) 2020-07-15 08:10:00 [place], Chasey [facility] URINALYSIS 2020-07-15 06:21:00 Evelyn [facility] PROTEIN CREAT RATIO URINE 2020-07-15 06:21:00 Evelyn [facility] [facility] URINALYSIS 2020-07-15 06:21:00 Evelyn San [facility] PROTEIN CREAT RATIO URINE 2020-07-15 06:21:00 Evelyn San [facility] POCT GLUCOSE (AUTOMATED) 2020-07-15 04:48:00 Omere, Chasey [facility] POCT GLUCOSE (AUTOMATED) 2020-07-15 04:48:00 Omere, Chasey [facility] HB ABO GROUPING 2020-07-15 04:42:00 Evelyn [facility] RHO (D) IMMUNE GLOBULIN 2020-07-15 04:42:00 Mike [facility] HB ABO GROUPING 2020-07-15 04:42:00 Evelyn [facility] RHO (D) IMMUNE GLOBULIN 2020-07-15 04:42:00 Mike [facility] SGOT (ASPARTATE AMINO 2020-07-15 04:40:00 Evelyn San [facility]) Medical Branch CREATININE 2020-07-15 04:40:00 Evelyn [facility] ALANINE AMINO 2020-07-15 04:40:00 Evelyn San [facility] TRANSFERASE(SGPT Medical Branch LACTATE DEHYDROGENASE 2020-07-15 04:40:00 Evelyn San [facility] URIC ACID 2020-07-15 04:40:00 Evelyn [facility] CBC WITH DIFF 2020-07-15 04:40:00 Evelyn [facility] HEPATITIS B SURFACE 2020-07-15 04:40:00 Evelyn San [facility] ANTIGEN [facility] HIV 1/2 AG-AB WITH REFLEX 2020-07-15 04:40:00 Evelyn San [facility] GALV ONLY - SYPHILIS 2020-07-15 04:40:00 Evelyn San [facility] IGG/IGM [facility] SGOT (ASPARTATE AMINO 2020-07-15 04:40:00 Evelyn San [facility] TRANSFER) Medical Branch CREATININE 2020-07-15 04:40:00 Evelyn [facility] ALANINE AMINO 2020-07-15 04:40:00 Evelyn San [facility] TRANSFERASE(SGPT [facility] LACTATE DEHYDROGENASE 2020-07-15 04:40:00 Evelyn San [facility] URIC ACID 2020-07-15 04:40:00 Evelyn [facility] CBC WITH DIFF 2020-07-15 04:40:00 Evelyn [facility] HEPATITIS B SURFACE 2020-07-15 04:40:00 Evelyn San [facility] ANTIGEN [facility] HIV 1/2 AG-AB WITH REFLEX 2020-07-15 04:40:00 Evelyn San [facility] GALV ONLY - SYPHILIS 2020-07-15 04:40:00 Evelyn San [facility] IGG/IGM [facility] COVID-19 (ID NOW RAPID 2020-07-15 02:48:00 Libby [facility] TESTING) [facility] COVID-19 (ID NOW RAPID 2020-07-15 02:48:00 [facility] LAB ONLY COVID 2020-07-15 02:48:00 Libby [facility] INTERPRETATION [facility] NON-STRESS TEST 2020-07-10 21:44:58 Lizette Lugo [facility] POCT URINALYSIS 2020-07-10 19:59:00 Lizette Lugo [facility] HOSPITAL ADMISSION 2020-07-08 05:01:00 Doctor Unassigned, [facility] HOSPITAL ADMISSION 2020-07-08 05:01:00 Doctor Unassigned, [facility] NON-STRESS TEST 2020-07-07 03:07:40 Mary Grace Nava [facility] POCT URINALYSIS 2020-07-06 19:43:00 AkinZeyad ruizilola C [facility] PATIENT QUESTIONNAIRE 2020-07-06 05:01:00 Doctor Unajazmínigned, [facility] PATIENT QUESTIONNAIRE 2020-07-06 05:01:00 Doctor Mars, [facility] NON-STRESS TEST 2020-07-03 20:39:49 Akinsipe Lizette C U [facility] POCT URINALYSIS 2020-07-03 19:47:00 Akinsipe Lizette C [facility] NON-STRESS TEST 2020-06-30 01:17:10 Mary Grace Nava [facility] URINE CULTURE 2020-06-29 19:17:00 Mary Grace Nava [facility] POCT URINALYSIS 2020-06-29 18:38:00 Akinsipe Lizette C [facility] NON-STRESS TEST 2020-06-26 20:00:14 Akinsipe Lizette C U [facility] POCT URINALYSIS 2020-06-26 19:07:00 Akinsipe Lizette C [facility] POCT URINALYSIS 2020-06-22 14:10:00 Akinsipatricia Lizette C [facility] COVID-19 (ID NOW RAPID 2020-06-13 23:40:00 Mallory Dickens [facility] TESTING) [facility] POCT GLUCOSE (AUTOMATED) 2020-06-13 23:39:00 Mallory Dickens [facility] NOTICE OF PRIVACY 2020-06-13 23:05:21 Doctor Mars [facility] PRACTICES [facility] CONSENT/REFUSAL FOR 2020-06-13 23:05:08 Doctor Mars [facility] DIAGNOSIS AND TREATMENT [facility] CONSENT/REFUSAL FOR 2020-06-05 23:13:27 Doctor Unassrivka, [facility] DIAGNOSIS AND TREATMENT [facility] [place] ASSIGNMENT OF BENEFITS 2020-05-31 00:57:40 Doctor Unassigned, [facility] [place] CONSENT/REFUSAL FOR 2020-05-31 00:57:15 Doctor Albassrivka, [facility] DIAGNOSIS AND TREATMENT [facility] POCT URINALYSIS 2020-05-22 15:41:00 Lizette Lugo [facility] PATIENT QUESTIONNAIRE 2020-05-22 05:01:00 Doctor Unassrivka, [facility] POCT URINALYSIS 2020-05-08 14:47:00 Lizette Lugo [facility] TDAP VACCINE, >11 YRS, IM 2020-05-08 14:31:42 Lizette Lugo [facility] STERILIZATION CONSENT 2020-05-08 05:01:00 Doctor Unassigned, [facility] FORM [facility] POCT URINALYSIS 2020-04-20 16:26:00 Lizette Lugo [facility] POCT URINALYSIS 2020-02-29 19:14:00 Lizette Lugo [facility] CONSENT FOR SERUM MARKER 2020-02-29 06:01:00 Doctor Mars, [facility] SCREENING [facility] POCT URINALYSIS 2020-02-01 20:26:00 Dayday Graham [facility] FIRST TRIMESTER 2020-01-26 19:45:00 Dayday Graham [facility] ULTRASOUND [facility] HB ABO GROUPING 2019-12-03 20:30:00 Mickey Paul [facility] GLUCOSE 1 HOUR POST 2019-12-03 20:29:00 Paul Arevalo [facility] PRANDIAL [facility] THYROID STIMULATING 2019-12-03 20:29:00 Mickey Paul [facility] HORMONE [facility] COMP. METABOLIC PANEL 2019-12-03 20:29:00 Paul Arevalo [facility] ([id number]) Medical [place] CBC WITH DIFF 2019-12-03 20:29:00 Mickey [facility] HEPATITIS B SURFACE 2019-12-03 20:29:00 Mickey Paul [facility] ANTIGEN [facility] URINE CULTURE 2019-12-03 20:29:00 Mickey [facility] HIV 1/2 AG-AB WITH REFLEX 2019-12-03 20:29:00 [facility] SARS-COV-2 IGG 2019-12-03 20:29:00 Mickey [facility] POCT URINALYSIS 2019-12-03 00:00:00 Mickey [facility] POCT TEST 2019-12-03 00:00:00 Paul Arevalo [facility] CONSENT/REFUSAL FOR 2019-11-29 02:29:26 Doctor Unassigned, [facility] DIAGNOSIS AND TREATMENT [facility] CONSENT/REFUSAL FOR 2019-03-12 20:07:12 Doctor Unassigned, [facility] DIAGNOSIS AND TREATMENT [facility] ASSIGNMENT OF BENEFITS 2019-03-12 20:06:52 Doctor Unassigned, [facility] CBC WITH DIFFERENTIAL 2018-10-13 09:05:00 Evelyn San [facility] VENOUS CORD GAS 2018-10-12 05:36:00 [facility] o f [facility] POCT GLUCOSE (AUTOMATED) 2018-10-12 02:07:00 [facility] 2018-10-11 16:54:00 [facility] ANTIGEN [facility] TYPE AND SCREEN 2018-10-11 16:54:00 [facility] o f [facility] GALV ONLY - SYPHILIS 2018-10-11 16:54:00 [facility] IGG/IGM [facility] HOSPITAL ADMISSION 2018-10-11 05:01:00 Doctor Unassigned, [facility] Name [facility] POCT URINALYSIS W/O 2018-10-07 16:43:00 Lizette Lugo [facility] SPECIFIC GRAVITY [facility] POCT URINALYSIS GLUCOSE & 2018-09-30 16:00:00 Dayday Graham [facility] PROTEIN Medical Branch CONSENT/REFUSAL FOR 2018-09-28 05:01:00 [facility]igned[facility] DIAGNOSIS AND TREATMENT [place] [facility] POCT URINALYSIS W/O 2018-09-23 14:15:00 Lizette Lugo [facility] SPECIFIC GRAVITY Medical Branch Plan of Care Planned Activity Planned Date Details Comments Source Future Scheduled 2030-05-08 DTaP,Tdap,and Td Univers ity of Test 00:00:00 Vaccines (4 - Td) [facility] [code = Branch DTaP,Tdap,and Td Vaccines (4 - Td)] Future Scheduled 2021-04-29 HPV VACCINES (1 - Postponed from [facility] ersity of Test 00:00:00 2-dose series) 06/18/2006 [facility] [code = HPV ( or Branch VACCINES (1 - ) 2-dose series)] Future Scheduled 2021-02-20 Screening for University of Test 00:00:00 malignant neoplasm [facility] ical of cervix Branch (procedure) [code = 431586673] Future Scheduled 2020-12-02 Depression University of Test 00:00:00 screening [facility] (procedure) [code Branch = 073198593] Future Scheduled 2020-10-18 INFLUENZA VACCINE Univer sity of Test 00:00:00 (Season Ended) [facility] [code = INFLUENZA Branch VACCINE (Season Ended)] Encounters Start End Encounter Admission Attending Care Care Encounter Source Date/Time Date/Time Type Type Clinicians Facility Department ID 2020-12-17 Outpatient P [facility] [id number] Univers 20:44:03 ity of [facility] 2020-12-17 Outpatient P [facility] [id number] Univers 15:42:38 ity of [facility] 2020-12-17 Outpatient P [facility] [id number] Univers 15:42:20 ity of [facility] Branch 2020-12-17 Outpatient P [facility] [id number] Univers 12:42:32 ity of [facility] 2020-12-17 Outpatient P [facility] [id number] Univers 12:42:20 ity [facility] 2019-06-05 Inpatient [facility] [id number] [facility] 12:52:00 [id number] [facility] 2020-12-06 2020-12-06 Outpatient [facility] [id number] Univers 10:30:00 10:30:00 [id number] ity of [facility] 2020-12-06 2020-12-06 Outpatient R AKINSIPE, [facility] [id number] Univers 10:30:00 10:30:00 LIZETTE ity o f [facility] 2020-09-04 2020-09-04 [facility] 1.2.840.114 [id number] Univers 00:00:00 00:00:00 Lizette C [place] 350.1.13.10 ity of REGIONAL 4.2.7.2.686 [place] as MATERNAL [id number] [facility] ical & CHILD [address] [place] [address] 2020-08-30 2020-08-30 Office [facility] [id number] Univers 08:10:27 08:55:14 Visit Lizette C [place] 350.1.13.10 ity of REGIONAL 4.2.7.2.686 [place] as MATERNAL [phone] [facility] ical & CHILD [address] [place] [address] 2020-08-30 2020-08-30 Outpatient R AKINSIPE, [facility] [id number] Univers 08:15:00 08:15:00 LIZETTE [id number] ity o f [facility] 2020-08-30 2020-08-30 Outpatient R AKINSIPE, [facility] [id number] Univers 08:15:00 08:15:00 LIZETTE ity o [facility] 2020-08-07 2020-08-07 Routine Akinpe, [facility] 1.2.133.112 [id number] Univers 09:02:18 09:17:18 Lizette C [place] 350.1.13.10 ity of Visit REGIONAL 4.2.7.2.686 [place] as MATERNAL [id number] [facility] ical & CHILD [address] [place] [address] 2020-08-07 2020-08-07 Outpatient R AKINSIPE, [facility] [id number] Univers 09:15:00 09:15:00 LIZETTE ity o f [facility] 2020-07-20 2020-07-20 Outpatient R [facility] [id number] Univers 15:00:00 15:00:00 [id number] ity of [facility] 2020-07-20 2020-07-20 Outpatient R [facility] [id number] Univers 15:00:00 15:00:00 ity of [facility] 2020-07-18 2020-07-18 Outpatient R [facility] [id number] Univers 14:30:00 14:30:00 [id number] ity of [facility] 2020-07-18 2020-07-18 Outpatient R [facility] [id number] Univers 14:30:00 14:30:00 ity [facility] 2020-07-14 2020-07-16 [facility] LIA Souza 1.2.840.114 [id number] Univers 21:46:00 14:09:00 Encounter Naomi LOZADA 350.1.13.10 ity [facility] 4.2.7.2.686 [place] [id number] [facility] 063 Branch 2020-07-15 2020-07-15 Surgery Anibal [place] 1.2.283.194 [id number] Univers 11:50:00 13:16:00 NEVIL[place] 350.1.13.10 it y [place] [id number] [facility] 013 Branch 2020-07-13 2020-07-13 Outpatient R [facility] [id number] Univers 14:00:00 14:00:00 [id number] ity of [facility] 2020-07-13 2020-07-13 Outpatient R [facility] [id number] Univers 14:00:00 14:00:00 ity [facility] 2020-07-10 2020-07-10 Routine Akinsipe, [facility] 1.2.208.312 [id number] Univers 14:39:24 15:42:26 Lizette Sprague [place] 350.1.13.10 ity of Visit REGIONAL 4.2.7.2.686 [place] as MATERNAL [id number] Med ical & [address] 2020-07-10 2020-07-10 Outpatient R [facility] [id number] Univers 14:30:00 14:30:00 [id number] ity [facility] 2020-07-10 2020-07-10 Outpatient R [facility] [id number] Univers 14:30:00 14:30:00 ity [facility] 2020-07-06 2020-07-06 Routine Risk, Jsq-Ldyrk-Ba/High [facility] 1. 2.840.114 [id number] Univers 13:51:59 15:15:19 Mary Grace Nava [place] 350.1.13.10 ity of Visit REGIONAL 4.2.7.2.686 Henry as MATERNAL [id number] [facility] & [address] 2020-07-06 2020-07-06 Outpatient R [facility] [id number] Univers 14:00:00 14:00:00 [id number] ity [facility] 2020-07-06 2020-07-06 Outpatient R [facility] [id number] Univers [facility]-04 2020-07-04 Telephone [facility] 1.2.840.114 [id number] Univers 00:00:00 00:00:00 Lizette C [place] 350.1.13.10 ity of REGIONAL 4.2.7.2.686 [place] as MATERNAL [id number] [address] 2020-07-04 2020-07-04 Abstract [facility] 1.2.840.114 [id number] Univers 00:00:00 00:00:00 Lizette C [place] 350.1.13.10 ity of REGIONAL 4.2.7.2.686 [place] as MATERNAL [id number] [address] 2020-07-03 2020-07-03 Routine [facility], [facility] 1.2.101.948 [id number] Univers 14:35:38 15:23:50 Lizette C [place] 350.1.13.10 ity of Visit REGIONAL 4.2.7.2.686 [place] as MATERNAL [id number] [facility] ical & CHILD [address] [place] [address] 2020-07-03 2020-07-03 Outpatient R [facility] [id number] Univers 14:45:00 14:45:00 ity of [facility] 2020-07-03 2020-07-03 Silk Screen Printer Ultrasound, Roberto [facility] 1.2 .840.114 [id number] Univers 14:15:12 14:34:18 Visit Dave Dion F [place] 350.1.13.10 ity of REGIONAL 4.2.7.2.686 Henry as MATERNAL [id number] [facility] ical & CHILD [address] [place] [address] 2020-07-03 2020-07-03 Outpatient P [facility] [id number] Univers 14:15:00 14:15:00 [id number] ity [facility] 2020-06-29 2020-06-29 Routine Risk, Onc-Jbyvq-Xy/High [facility] 1. 2.840.114 [id number] Univers 13:24:41 14:19:29 Mary Grace Nava [place] 350.1.13.10 ity of Visit REGIONAL 4.2.7.2.686 Henry as MATERNAL [id number] [facility] & CHILD [address] [place] [address] 2020-06-29 2020-06-29 Outpatient R [facility] [id number] Univers 14:00:00 14:00:00 [id number] ity of [facility] 2020-06-29 2020-06-29 Outpatient R [facility] [id number] Univers 14:00:00 14:00:00 ity [facility] 2020-06-26 2020-06-26 Routine Akinsipe, [facility] 1.2.350.484 [id number] Univers 13:50:58 14:52:08 Lizette C [place] 350.1.13.10 ity of Visit REGIONAL 4.2.7.2.686 Henry as MATERNAL [id number] [facility] & CHILD [address] [place] [address] 2020-06-26 2020-06-26 Outpatient R [facility] [id number] Univers 14:00:00 14:00:00 [id number] ity [facility] 2020-06-26 2020-06-26 Outpatient R [facility] [id number] Univers 14:00:00 14:00:00 ity [facility] 2020-06-22 2020-06-22 Routine Risk, Pse-Jwblp-Dc/High [facility] 1. 2.840.114 [id number] Univers 08:49:16 09:53:49 Mary Grace Nava [place] 350.1.13.10 ity of Visit REGIONAL 4.2.7.2.686 Henry as MATERNAL [id number] [facility] & CHILD [address] [place] [address] 2020-06-22 2020-06-22 Outpatient R [facility] [id number] Univers 09:00:00 09:00:00 [id number] ity [facility] 2020-06-22 2020-06-22 Outpatient R [facility] [id number] Univers 09:00:00 09:00:00 ity [facility] 2020-06-22 2020-06-22 Telephone [facility] 1.2.840.114 [id number] Univers 00:00:00 00:00:00 Lizette Sprague [place] 350.1.13.10 ity of REGIONAL 4.2.7.2.686 [place] [address] MAT[address]NAL [id number] [facility] & CHILD [address] [place] [address] 2020-06-20 2020-06-20 [facility] [id number] Univers 10:00:00 10:00:00 TONIO ity [facility] 2020-06-13 2020-06-13 [facility] Mallory Dickens [facility] 1.2.840.114 [id number] Univers 18:04:00 19:07:00 Encounter Carla [place] 350.1.13.10 ity [facility] 4.2.7.2.[place] [id number] [address] 2020-06-08 2020-06-08 Outpatient R [facility] [id number] Univers 08:30:00 08:30:00 [id number] ity of [facility] 2020-06-08 2020-06-08 Outpatient R [facility] [id number] Univers 08:30:00 08:30:00 ity of [facility] 2020-06-05 2020-06-05 [facility] Mallory Dickens [facility] 1.2.840.114 [id number] Univers 18:10:00 20:23:00 Encounter Cally Mehta 350.1.13.10 ity of [place] 4.2.7.2.686 [facility] [id number] [facility] [address] [place] 2020-06-05 2020-06-05 Telephone [facility] 1.2.873.684 [id number] Univers 00:00:00 00:00:00 Ang-Rmchp-N [place] 350.1.13.10 ity of p/High REGIONAL 4.2.7.2.686 Henry as MATERNAL [id number] Med ical & CHILD [address] [place] [address] 2020-06-05 2020-06-05 Orders Doctor LIA 1.2.840.114 [id number] Univers 00:00:00 00:00:00 Only Unassigned, [place] 350.1.13.10 ity of [place] [facility] 4.2.7.2.686 Henry as [id number] [facility] [address] [place] 2020-05-30 2020-05-30 [facility] Cally Mehta [facility] 1.2.840.114 [id number] Univers 19:58:00 21:25:00 Encounter Nikita 350.1.13.10 ity of [place] 4.2.7.2.686 [facility] [id number] [facility] 083 Branch 2020-05-30 2020-05-30 Orders Doctor LIA 1.2.840.114 [id number] Univers 00:00:00 00:00:00 Only Unassigned, [place] 350.1.13.10 ity of [place] [facility] 4.2.7.2.686 Henry as [id number] [facility] [address] [place] 2020-05-23 2020-05-23 Outpatient TREVOR [facility] [id number] Univers 10:00:00 10:00:00 ARSALAN ity [facility] 2020-05-22 2020-05-22 [facility] 1.2.487.406 [id number] Univers 10:26:59 10:58:34 Lizette C [place] 350.1.13.10 ity of Visit REGIONAL 4.2.7.2.686 Henry as MATERNAL [id number] [facility] ical & CHILD [address] [place] [address] 2020-05-22 2020-05-22 [facility] [id number] Univers 09:45:00 09:45:00 LIZETTE [id number] ity o [facility] 2020-05-22 2020-05-22 Outpatient [facility] [id number] Univers 09:45:00 09:45:00 LIZETTE ity o [facility] 2020-05-22 2020-05-22 Orders Doctor LIA 1.2.840.114 [id number] Univers 00:00:00 00:00:00 Only Unassigned, [place] 350.1.13.10 ity of [place] [facility] 4.2.7.2.686 Henry as [id number] [address] 2020-05-09 2020-05-[address] [facility] 1.2.840.114 [id number] Univers 00:00:00 00:00:00 [facility]reach [facility] 350.1.13.10 i ty of [facility] 4.2.7.2.[place] [id number] [place] [address] [place] 2020-05-08 2020-05-08 [facility]ine [facility] 1.2.025.319 [id number] Univers 08:47:27 10:56:07 Lizette C [place] 350.1.13.10 ity of Visit REGIONAL 4.2.7.2.686 [place] as MATERNAL [id number] [facility] ical & CHILD [address] [place] [address] 2020-05-08 2020-05-08 Outpatient Darya GRAHAM [facility] [id number] Univers 09:00:00 09:00:00 DAYDAY [id number] ity [facility] 2020-05-08 2020-05-08 Outpatient R SANTOS [facility] [id number] Univers 09:00:00 09:00:00 DAYDAY ity [facility] 2020-05-08 2020-05-08 Outpatient R PARISH [facility] [id number] Univers 09:00:00 09:00:00 LIZETTE archer o f [facility] 2020-05-08 2020-05-08 Orders Doctor LIA 1.2.840.114 [id number] Univers 00:00:00 00:00:00 Only Unassigned, [place] 350.1.13.10 ity of [place] [facility] 4.2.7.2.686 [place] as [id number] [address] 2020-05-04 2020-05-04 Telephone [facility] 1.2.840.114 [id number] Univers 00:00:00 00:00:00 Lizette Sprague [place] 350.1.13.[address] [facility] 4.2.7.2.686 Henry as MATERNAL [id number] [facility] ical & CHILD [address] [place] [address] 2020-05-03 2020-05-03 Silk Screen Printer Lab, [facility] 1.2.840. 114 [id number] Univers 07:46:58 08:01:58 Visit Dayday Graham [place] 350.1.13.[address] [facility] 4.2.7.2.686 Henry as MATERNAL [id number] [facility] & [address] 2020-05-03 2020-05-03 Outpatient [facility] [id number] Univers 07:45:00 07:45:00 [id number] ity [facility] 2020-05-03 2020-05-03 Outpatient Darya GRAHAM [facility] [id number] Univers 07:45:00 07:45:00 DAYDAY italie [facility] 2020-04-26 2020-04-26 Telephone [facility] 1.2.840.114 [id number] Univers 00:00:00 00:00:00 Lizette Sprague [place] 350.1.13.10 ity of REGIONAL 4.2.7.2.686 [place] as MATERNAL [id number] [facility] ical & CHILD [address] [place] [address] 2020-04-25 2020-04-[address] [facility] 1.2.8 40.114 [id number] Univers 08:55:43 09:34:31 Dayday Graham [place] 350.1.13.10 ity of Visit REGIONAL 4.2.7.2.686 [place] as MATERNAL [id number] Med ical & CHILD [address] [place] [address] 2020-04-25 2020-04-25 Outpatient R SANTOS [facility] [id number] Univers 09:15:00 09:15:00 DAYDAY archer [facility] 2020-04-21 2020-04-21 [facility]phone [facility] 1.2.840.114 [id number] Univers 00:00:00 00:00:00 Dayday Sanchez [place] 350.1.13.10 it y of REGIONAL 4.2.7.2.686 [place] as MATERNAL [id number] [facility] & CHILD [address] [place] [address] 2020-04-20 2020-04-20 Routine Risk, Nuy-Qswcv-Jy/High [facility] 1. [id number] [id number] [employer] 10:18:39 10:46:55 Tara Harvey TRIBAL DELEGATE 350.1.13.10 ity of Visit REGIONAL 4.2.7.2.686 Henry as MATERNAL [id number] [facility] & CHILD [address] [place] [address] 2020-04-20 2020-04-20 Outpatient R [facility] [id number] Univers 10:30:00 10:30:00 [id number] ity [facility] 2020-04-20 2020-04-20 [facility] [facility] [id number] Univers 10:30:00 10:30:00 ity [facility] 2020-04-06 2020-04-06 Outpatient R [facility] [id number] Univers 10:00:00 10:00:00 ity [facility] 2020-03-28 2020-03-28 Outpatient R PARISH [facility] [id number] 4Q-20 Univers 11:00:00 11:00:00 LIZETTE [id number] ity o f [facility] 2020-03-28 2020-03-28 [facility] [id number] Univers 11:00:00 11:00:00 LIEZTTE ity o f [facility] 2020-03-09 2020-03-09 Silk Screen Printer Ultrasound, [facility] 1.2 .840.114 [id number] Univers 13:52:50 15:07:50 Visit Tamiko Goncalves [employer] 350.1.13.10 ity of REGIONAL 4.2.7.2.686 Henry as MATERNAL [phone] [facility] ical & CHILD 369 [facility] 2020-03-09 2020-03-09 Outpatient R [facility] [id number] -[id number] Univers 14:00:00 14:00:00 [id number] ity [facility] 2020-03-09 2020-03-09 Outpatient P [facility] [id number] Univers 14:00:00 14:00:00 ity of [facility] 2020-02-29 2020-02-29 Routine [facility] 1.2.051.670 [id number] Univers 12:58:27 13:26:41 Lizette Sprague [employer] 350.1.13.10 ity of Visit REGIONAL 4.2.7.2.686 Henry as MATERNAL [id number] [facility] & CHILD [address] [place] [address] 2020-02-29 2020-02-29 Outpatient R [facility] [id number] 4Q-20 Univers 13:00:00 13:00:00 LIZETTE [id number] ity o [facility] 2020-02-29 2020-02-29 [facility] [id number] Univers 13:00:00 13:00:00 LIZETTE ity o [facility] 2020-02-29 2020-02-29 Orders Doctor FITZGERALD 1.2.840.114 [id number] Univers 00:00:00 00:00:00 Only Unassigned, NEVILLE 350.1.13.10 ity of [place] [facility] 4.2.7.2.686 Henry as [phone] [address] 2020-02-01 2020-02-01 [facility] 1.2.752.441 [id number] Univers 13:43:05 14:05:32 Dayday Sanchez [employer] 350.1.13.[address] [facility] 4.2.7.2.686 Henry as MATERNAL [id number] [facility] & CHILD [address] [place] [address] 2020-02-01 2020-02-01 [facility] [id number] 4Q-20 Univers 14:00:00 14:00:00 DAYDAY [id number] ity [facility] 2020-02-01 2020-02-01 [facility] [id number] Univers 14:00:00 14:00:00 [facility] 2020-01-26 2020-01-26 Silk Screen Printer Ultrasound, [facility] 1.2 .840.114 [id number] Univers 13:20:33 13:52:11 Visit Tamiko Goncalves [employer] 350.1.13.[address] [facility] 4.2.7.2.686 Henry as MATERNAL [id number] [facility] & [address] 2020-01-26 2020-01-26 Outpatient R [facility] [id number] -[id number] Univers 13:30:00 13:30:00 [id number] ity [facility] 2020-01-26 2020-01-26 Outpatient P [facility] [id number] Univers 13:30:00 13:30:00 ity [facility] 2020-01-21 2020-01-21 [facility]phone [facility] 1.2.840.114 [id number] Univers 00:00:00 00:00:00 Dayday Sanchez [employer] 350.1.13.[address] [facility] 4.2.7.2.686 Henry as MATERNAL [id number] [facility] & [address] 2020-01-04 2020-01-04 [facility] 1.2.689.420 [id number] Univers 14:10:07 14:25:07 Dayday Sanchez [employer] 350.1.13.[address] [facility] 4.2.7.2.686 Henry as MATERNAL [id number] Med ical & CHILD 107 [facility] 2020-01-04 2020-01-04 Outpatient Darya GRAHAM [facility] [id number] Univers 14:15:00 14:15:00 [facility] 2020-01-04 2020-01-04 Out[facility] 2231 14Q-20 Univers 10:30:00 10:30:00 PAUL [id number] [facility] 2019-12-03 2019-12-03 [facility] 1.2.840.114 [id number] Univers 13:57:53 15:53:08 Paul [employer] 350.1.13.[address] [facility] 4.2.7.2.686 Henry as MATERNAL [id number] Med ical & CHILD 111 [facility] 2019-12-03 2019-12-03 Outpatient Darya [facility] [id number] Univers 14:00:00 14:00:00 PAUL [facility] 2019-12-03 2019-12-03 Outpatient R [facility] [id number] -[id number] Univers 13:30:00 13:30:00 [id number] [facility] 2019-11-28 2019-11-28 Orders Doctor LIA 1.2.840.114 [id number] Univers 00:00:00 00:00:00 Only Unassigned, NEVILLE 350.1.13.10 ity of [place] [facility] 4.2.7.2.686 Henry as [phone] [address] 2019-05-12 2019-05-12 Outpatient matnjosh [facility] 5510 [place] 09:15:00 09:15:00 0325 [facility] 2019-03-12 2019-03-[address] [facility] 1.2.726.172 [id number] 14:09:29 15:05:26 Visit Lizette Sprague [employer] 350.1.13.10 REGIONAL 4.2.7.2.686 MATERNAL [id number] & CHILD [address] [place] [address] 2019-03-12 2019-03-12 Office Akins[place], [facility] 1.2.161.659 [id number] Univers 14:09:29 15:05:26 Visit Lizette Sprague [employer] 350.1.13.10 ity of REGIONAL 4.2.7.2.686 Henry as MATERNAL [id number] [facility] ical & CHILD [address] [place] [address] 2019-03-12 2019-03-12 Orders Doctor LIA 1.2.840.114 [id number] Univers 00:00:00 00:00:00 Only Unassigned, NEVILLE 350.1.13.10 ity of [place] [facility] 4.2.7.2.686 Henry as [id number] [facility] [address] 2019-03-11 2019-03-11 Telephone [facility] 1.2.840.114 [id number] Univers 00:00:00 00:00:00 Lizette Sprague [employer] 350.1.13.10 ity of REGIONAL 4.2.7.2.686 Henry as MATERNAL [id number] [facility] ical & CHILD [address] [place] [address] 2018-11-02 2018-11-02 Routine [facility], [facility] 1.2.140.445 [id number] Univers 09:19:45 10:10:06 Lizette Sprague [employer] 350.1.13.10 ity of Visit REGIONAL 4.2.7.2.686 Henry as MATERNAL [id number] [facility] ical & CHILD [address] [place] [address] 2018-10-11 2018-10-13 Hospital LIA Blandon 1.2.840.114 [id number] Univers 09:10:00 13:48:00 Encounter Altagracia LOZADA 350.1.13.10 ity of HOSPITAL 4.2.7.2.686 Henry as [phone] [facility] [address] 2018-10-11 2018-10-11 Orders Doctor LIA 1.2.840.114 [id number] Univers 00:00:00 00:00:00 Only Unassigned, NEVILLE 350.1.13.10 ity of [place] [facility]OSPITAL 4.2.7.2.686 Henry as [id number] [facility] [address] 2018-10-07 2018-10-[address] [facility] 1.2.8 40.114 [id number] Univers 10:46:28 11:49:44 Dayday Graham [employer] 350.1.13.10 ity of Visit REGIONAL 4.2.7.2.686 Henry as MATERNAL [id number] Med ical & CHILD [address] [place] [address] 2018-09-30 2018-09-[address] [facility] 1.2.832.724 [id number] Univers 10:52:31 11:16:08 Dayday Sanchez [employer] 350.1.13.10 i ty of Visit REGIONAL 4.2.7.2.686 Henry as MATERNAL [id number] Med ical & CHILD [address] [place] [address] 2018-09-28 2018-09-28 Hospital Kortney FITZGERALD 1.2.840.114 [id number] Univers 11:23:00 13:27:00 Encounter Carline LOZADA 350.1.13.10 ity of s, [place]2.[place] [id number] [facility] [address] 2018-09-28 2018-09-28 Nurse LIA Sutton 1.2.840.114 [id number] Univers 00:00:00 00:00:00 Triage Virginie LOZADA 350.1.13.10 i ty of HOSPITAL 4.2.7.2.686 Henry as [id number] [facility] [address] [place] 2018-09-28 2018-09-[address] [facility] 1.2.469.550 [id number] Univers 00:00:00 00:00:00 Secure Msg Lizette Sprague [employer] 350.1.13.[address] [facility] 4.2.7.2.686 Henry as MATERNAL [id number] [facility] ical & CHILD [address] [place] [address] 2018-09-24 2018-09-[address] [facility] 1.2.840.114 [id number] Univers 00:00:00 00:00:00 Lizette Sprague [employer] 350.1.13.[address] [facility] 4.2.7.2.686 Henry as MATERNAL [id number] Med ical & CHILD [address] [place] [address] 2018-09-24 2018-09-24 Patient COREY Lugo 1.2.959.772 [id number] Univers 00:00:00 00:00:00 Secure Msg Lizette C [employer] 350.1.13.[address] [facility] 4.2.7.2.686 Henry as MATERNAL [id number] [facility] ical & CHILD [address] [place] [address] 2018-09-23 2018-09-23 Routine Parish NYXENIA 1.2.732.962 [id number] Univers 08:57:20 10:50:36 Lizette C [employer] 350.1.13.10 ity of Visit REGIONAL 4.2.7.2.686 Henry as MATERNAL [id number] [facility] & CHILD [address] [place] [address] 2018-08-14 2018-08-14 Patient Doctor LIA 1.2.840.114 [id number] Univers 00:00:00 00:00:00 Secure Msg Unassigned, NEVILLE 350.1.13.10 ity of [place] [facility] 4.2.7.2.686 Henry as [phone] [address] Results Test Description Test Time Test Comments Results Result [facility] e Comments LAB ONLY COVID COVID [place] [address] [facility] 03:38:37 rpretation/Recomme Branch ndations: Molecular NAAT Tests for Active Infection with the SARS-CoV-2 Virus: The patient has currently tested negative for the SARS-CoV-2 virus that causes COVID-19 illness. This most likely indicates that the patient does not have an active infection with the SARS-CoV-2 virus. However, infection is not completely ruled out as the false negative rate for molecular NAAT testing using a nasopharyngeal sample can be up to 30%, mostly dependent on the timing of sample collection in relation to illness onset and any deficiencies in sampling techniques. If the patient has symptoms concerning for COVID-19 illness, a repeat NAAT test (PCR, Rapid ID Now, etc.) should be performed, at which time the SARS-CoV-2 virus - if present - may have reached a detectable viral load (usually peaking by the end of the first week of symptoms). Tests for IgM and/or IgG Antibodies to the SARS-CoV-2 Virus: The patient has tested positive for SARS-CoV-2 IgG antibodies, suggestive of a past infection. While IgG antibodies to SARS-CoV-2 may provide some degree of immunity, at this time the strength and duration of the antibody response is unknown. Of note, IgG antibody positivity may be in response to vaccination if the patient has been vaccinated at least 1-2 weeks before the sample was collected for the antibody test. - Interpretation Result Comments:These interpretation comments are based upon all COVID-19 testing the patient has had at [facility], including molecular NAAT testing (more commonly known as PCR testing and Rapid ID Now testing) and antibody testing. It does not take into account any testing that a patient has had outside of the [facility] medical record. [facility] LABORATORY SERVICESCOVID [id number] Rapid ID NOW (no units) ? ? Date ? Value ? 07/14/2020 ? Not Detected ? ? ? 07/08/2020 ? Not Detected ? ? ? 06/13/2020 ? Not Detected ? CoV-2 IgG (no units) ? ? Date ? Value ? 07/03/2020 ? Positive (A) ? ? ? 12/03/2019 ? Negative ? ? ? [facility] CBC with Differential 2020-07-16 10:28:11 Test Item Value Reference Range Interpretation Comme nts WBC (test code = 6690-2) See_Comment H [A utomated message] The system which ge nerated this result transmit kishor reference range: 4.30 - 1 1.10 10*3/?L. The reference r kb was not used to interpr et this result as normal/abnor mal. RBC (test code = 789-8) See_Comment L [Au tomated message] The system which Xuba nerated this result transmit kishor reference range: 3.93 - 5 .25 10*6/?L. The reference r kb was not used to interpr et this result as normal/abnor mal. HGB (test code = 718-7) 9.7 g/dL 11.6-15.0 L HCT (test code = 4544-3) 31.2 % 35.7-45.2 L MCV (test code = 787-2) 89.7 fL 80.6-95.5 MCH (test code = 785-6) 27.9 pg 25.9-32.8 MCHC (test code = 786-4) 31.1 g/dL 31.6-35.1 L RDW-SD (test code = 51585-0) 48.5 fL 39.0-49.9 RDW-CV (test code = 788-0) 14.8 % 12.0-15.5 PLT (test code = 777-3) See_Comment [Au tomated message] The system which Xuba nerated this result transmit kishor reference range: 166 - 35 8 10*3/?L. The reference range was not used to interpret th is result as normal/abnormal . MPV (test code = 19551-6) 9.5 fL 9.5-12.9 NRBC/100 WBC (test code = See_Comment [ Automated message] The 3371349614) system which Xuba nerated this result transmit kishor reference range: 0.0 - 10 .0 /100 WBCs. The reference r kb was not used to interpr et this result as normal/abnor mal. NRBC x10^3 (test code = <0.01 See_Comment [Au tomated message] The 0807569467) system which Xuba nerated this result transmit kishor reference range: 10*3/?L. The reference range was not u sed to interpret this result as normal/abnormal . GRAN MAT (NEUT) % (test code 77.0 % = 770-8) IMM GRAN % (test code = 0.80 % 7284880473) LYMPH % (test code = 736-9) 12.4 % MONO % (test code = 5905-5) 8.7 % EOS % (test code = 713-8) 0.9 % BASO % (test code = 706-2) 0.2 % GRAN MAT x10^3(ANC) (test 11.03 10*3/uL 1.88-7.09 H code = 8987724932) IMM GRAN x10^3 (test code = 0.12 10*3/uL 0.00-0.06 H 4778720179) LYMPH x10^3 (test code = 1.78 10*3/uL 1.32-3.29 731-0) MONO x10^3 (test code = 1.25 10*3/uL 0.33-0.92 H 742-7) EOS x10^3 (test code = 0.13 10*3/uL 0.03-0.39 711-2) BASO x10^3 (test code = 0.03 10*3/uL 0.01-0.07 704-7) Lab Interpretation (test Abnormal code = 46629-4) [facility] with [id number] 10:28:11 Test Item Value Reference Range Interpretation Comments WBC (test code = See_Comment H [Automated 6690-2) message] The system which generated this result transmit kishor reference range : 4.30 - 11.10 10*3/?L. The reference range was not used to interpret this result as normal/abnormal . RBC (test code = See_Comment L [Automated 789-8) message] The system which generated this result transmit kishor reference range : 3.93 - 5.25 10*6/?L. The reference range was not used to interpret this result as normal/abnormal . HGB (test code = 9.7 g/dL 11.6-15.0 L 718-7) HCT (test code = 31.2 % 35.7-45.2 L 4544-3) MCV (test code = 89.7 fL 80.6-95.5 787-2) MCH (test code = 27.9 pg 25.9-32.8 785-6) MCHC (test code = 31.1 g/dL 31.6-35.1 L 786-4) RDW-SD (test code = 48.5 fL 39.0-49.9 72125-8) RDW-CV (test code = 14.8 % 12.0-15.5 788-0) PLT (test code = See_Comment [Automated 777-3) message] The system which generated this result transmit kishor reference range : 166 - 358 10*3/ ?L. The reference range was not u sed to interpret th is result as normal/abnormal . MPV (test code = 9.5 fL 9.5-12.9 58477-9) NRBC/100 WBC (test See_Comment [Automat ed code = 5593371386) message] The system which generated this result transmit kishor reference range : 0.0 - 10.0 /100 WBCs. The reference range was not used to interpret this result as normal/abnormal . NRBC x10^3 (test code <0.01 See_Comment [Auto mated = 5637499602) message] The system which generated this result transmit kishor reference range : 10*3/?L. The reference range was not used to interpret this result as normal/abnormal . GRAN MAT (NEUT) % 77.0 % (test code = 770-8) IMM GRAN % (test code 0.80 % = 1458178910) LYMPH % (test code = 12.4 % 736-9) MONO % (test code = 8.7 % 5905-5) EOS % (test code = 0.9 % 713-8) BASO % (test code = 0.2 % 706-2) GRAN MAT x10^3(ANC) 11.03 10*3/uL 1.88-7.09 H (test code = 1534141565) IMM GRAN x10^3 (test 0.12 10*3/uL 0.00-0.06 H code = 6202166114) LYMPH x10^3 (test code 1.78 10*3/uL 1.32-3.29 = 731-0) MONO x10^3 (test code 1.25 10*3/uL 0.33-0.92 H = 742-7) EOS x10^3 (test code = 0.13 10*3/uL 0.03-0.39 711-2) BASO x10^3 (test code 0.03 10*3/uL 0.01-0.07 = 704-7) Lab Interpretation Abnormal (test code = 44776-2) [facility] (D) IMMUNE [id number] 01:57:12 Test Item Value Reference Range Interpretation Comments RHIG CANDIDATE? No- see comment Patient i s not a (test code = candidate for R hIg- 5055) Patient is Rh Positive.Perfor med at [facility] Laboratory Services - [facility] Blood [address] Free: [phone] A No. [id number] [facility] (D) IMMUNE [id number] 01:57:12 Test Item Value Reference Range Interpretation Comments RHIG CANDIDATE? No- see comment Patient i s not a (test code = candidate for R hIg- 5055) Patient is Rh Positive.Perfor med at [facility] Laboratory Services - [facility] Blood [address] Free: [phone] A No. [id number] [facility] ONLY - [place] [id number] 16:55:55 Test Item Value Reference Range Interpretation Comments Syphilis IgG/IgM (test Non-reactive Non-reactive code = 81721-5) KARLA (test code = KARLA) Non-reactive - No serologic evidence of T. pallidum infection. Cannot exclude incubating or early syphilis. Submit a second specimen in 2-4 weeks if syphilis is clinically suspected. Equivocal - Further testing to follow. Reactive - Further testing to follow. Lab Interpretation (test Normal code = 32802-2) [facility] ONLY - [place] [id number] 16:55:55 Test Item Value Reference Range Interpretation Comments Syphilis IgG/IgM (test Non-reactive Non-reactive code = 62403-4) KARLA (test code = KARLA) Non-reactive - No serologic evidence of T. pallidum infection. Cannot exclude incubating or early syphilis. Submit a second specimen in 2-4 weeks if syphilis is clinically suspected. Equivocal - Further testing to follow. Reactive - Further testing to follow. Lab Interpretation (test Normal code = 87378-4) [facility] CORD [id number] 14:33:45 Test Item Value Reference Range Interpretation Comments VENOUS BASE EXCESS, mEq/L CORD (test code = 9218889489) VENOUS PH, CORD (test 7.25-7.45 code = 9370077448) VENOUS PC02, CORD See_Comment [Automate d message] The (test code = system which ge nerated 2684670743) this result tra nsmitted reference range : 27 - 49 mmHg. The refer ence range was not used to interpret this result as normal/abnormal . VENOUS PO2, CORD (test See_Comment [Aut omated message] The code = 4682362936) system [facility] generated this result tra nsmitted reference range : 17 - 41 mmHg. The refer ence range was not used to interpret this result as normal/abnormal . VENOUS BICARBONATE, See_Comment [Automa kishor message] The CORD (test code = system [facility] generated 9250084841) this result tra nsmitted reference range : 12 - 29 mEq/L. The refe rence range was not used to interpret this result as normal/abnormal . [facility] CORD [id number] 14:33:45 Test Item Value Reference Range Interpretation Comments VENOUS BASE EXCESS, mEq/L CORD (test code = 6391315262) VENOUS PH, CORD (test 7.25-7.45 code = 0693889950) VENOUS PC02, CORD See_Comment [Automate d message] The (test code = system which ge nerated 0578460931) this result tra nsmitted reference range : 27 - 49 mmHg. The refer ence range was not used to interpret this result as normal/abnormal . VENOUS PO2, CORD (test See_Comment [Aut omated message] The code = 5631748295) system [facility] generated this result tra nsmitted reference range : 17 - 41 mmHg. The refer ence range was not used to interpret this result as normal/abnormal . VENOUS BICARBONATE, See_Comment [Automa kishor message] The CORD (test code = system [facility] generated 0729657910) this result tra nsmitted reference range : 12 - 29 mEq/L. The refe rence range was not used to interpret this result as normal/abnormal . [facility] [id number] 14:30:44 Test Item Value Reference Range Interpretation Comments BASE EXCESS, CORD mEq/L (test code = 9161809218) AC PH, CORD (BEAKER) 7.18-7.38 (test code = 8713177208) PC02, CORD (test code See_Comment [Auto mated message] The = ) system which g enerated this result transmit kishor reference range : 32 - 66 mmHg. The refer ence range was not used to interpret this result as normal/abnormal . PO2, CORD (test code See_Comment [Autom ated message] The = 7994003025) system which g enerated this result transmit kishor reference range : 10 - 30 mmHg. The refer ence range was not used to interpret this result as normal/abnormal . BICARBONATE, CORD See_Comment [Automate d message] The (test code = system which ge nerated this 3414856890) result transmit kishor reference range : 17 - 27 mEq/L. The refe rence range was not used to interpret this result as normal/abnormal . [facility] CORD [id number] 14:30:44 Test Item Value Reference Range Interpretation Comments BASE EXCESS, CORD mEq/L (test code = 4157467610) AC PH, CORD (BEAKER) 7.18-7.38 (test code = 3165445815) PC02, CORD (test code See_Comment [Auto mated message] The = ) system which g enerated this result transmit kishor reference range : 32 - 66 mmHg. The refer ence range was not used to interpret this result as normal/abnormal . PO2, CORD (test code See_Comment [Autom ated message] The = 1089308909) system which g enerated this result transmit kishor reference range : 10 - 30 mmHg. The refer ence range was not used to interpret this result as normal/abnormal . BICARBONATE, CORD See_Comment [Automate d message] The (test code = system which ge nerated this 6468295835) result transmit kishor reference range : 17 - 27 mEq/L. The refe rence range was not used to interpret this result as normal/abnormal . [facility] acute hospital GLUCOSE (AUTOMATED)2020-07-15 11:59:25 Test Item Value Reference Range Interpretation Comments POCT GLU (test code = 3252085849) 122 mg/dL 70-110 H Lab Interpretation (test code = Abnormal 75579-4) General acute hospital GLUCOSE (AUTOMATED)2020-07-15 11:59:25 Test Item Value Reference Range Interpretation Comments POCT GLU (test code = 8500839910) 122 mg/dL 70-110 H Lab Interpretation (test code = Abnormal 12070-1) General acute hospital GLUCOSE (AUTOMATED)2020-07-15 08:15:23 Test Item Value Reference Range Interpretation Comments POCT GLU (test code = 0670617187) 122 mg/dL 70-110 H Lab Interpretation (test code = Abnormal 47551-9) General acute hospital GLUCOSE (AUTOMATED)2020-07-15 08:15:23 Test Item Value Reference Range Interpretation Comments POCT GLU (test code = 6858484210) 122 mg/dL 70-110 H Lab Interpretation (test code = Abnormal 96840-4) [facility] 06[facility]28 Test Item Value Reference Range Interpretation Comments APPEARANCE (test code = Clear Clear 9364956333) COLOR (test code = Yellow Yellow 9497570570) PH (test code = 4.8-8.0 7994231559) SP GRAVITY (test code = 1.003-1.030 7750908426) GLU U QUAL (test code = Normal Normal 9702592217) BLOOD (test code = Negative Negative 5633112410) KETONES (test code = 5 mg/dL Negative A 5403698875) PROTEIN (test code = Negative Negative 2887-8) UROBILIN (test code = Normal Normal 9494665578) BILIRUBIN (test code = Negative Negative 7947126347) NITRITE (test code = Negative Negative 7116708593) LEUK RAJ (test code = Negative Negative 4568395276) RBC/HPF (test code = See_Comment H [Autom ated message] 6606250320) The system [employer] generated this result transmitted ref erence range: 0 - 3 HP F. The reference range was not used to int erpret this result as normal/abnormal . WBC/HPF (test code = See_Comment [Autom ated message] 2114814774) The system [employer] generated this result transmitted ref erence range: 0 - 5 HP F. The reference range was not used to int erpret this result as normal/abnormal . BACTERIA (test code = Few Negative A 3570055623) MUCOUS (test code = Moderate Negative LPF A 8755690911) SQ EPITH (test code = See_Comment H [Auto mated message] [id number]) The system [employer] generated this result transmitted ref erence range: <=2 HPF. The reference range was not used to int erpret this result as normal/abnormal . Lab Interpretation (test Abnormal code = 70662-4) [facility] 06[facility]40:28 Test Item Value Reference Range Interpretation Comments APPEARANCE (test code = Clear Clear 3073632113) COLOR (test code = Yellow Yellow 1134170685) PH (test code = 4.8-8.0 9112604281) SP GRAVITY (test code = 1.003-1.030 5765337163) GLU U QUAL (test code = Normal Normal 8204841932) BLOOD (test code = Negative Negative 6682202269) KETONES (test code = 5 mg/dL Negative A 3833013347) PROTEIN (test code = Negative Negative 2887-8) UROBILIN (test code = Normal Normal 0439433351) BILIRUBIN (test code = Negative Negative 0389676568) NITRITE (test code = Negative Negative 8407964194) LEUK RAJ (test code = Negative Negative 8571050605) RBC/HPF (test code = See_Comment H [Autom ated message] 3452751426) The system [employer] generated this result transmitted ref erence range: 0 - 3 HP F. The reference range was not used to int erpret this result as normal/abnormal . WBC/HPF (test code = See_Comment [Autom ated message] 6440329147) The system [employer] generated this result transmitted ref erence range: 0 - 5 HP F. The reference range was not used to int erpret this result as normal/abnormal . BACTERIA (test code = Few Negative A 5436540605) MUCOUS (test code = Moderate Negative LPF A 5855831289) SQ EPITH (test code = See_Comment H [Auto mated message] 3830338205) The system [employer] generated this result transmitted ref erence range: <=2 HPF. The reference range was not used to int erpret this result as normal/abnormal . Lab Interpretation (test Abnormal code = 68937-7) [facility]burgProtein CREAT Ratio Urine [id number] 06:39:32 Test Item Value Reference Range Interpretation Comments T. PROT U (test code = 2888-6) 13 mg/dL CREAT U (test code = 4858947388) 156.2 mg/dL Protein/Creatinine Ratio Urine 0.0-2.0 (test code = 9701850164) [facility] CREAT Ratio Urine [id number] 06:39:32 Test Item Value Reference Range Interpretation Comments T. PROT U (test code = 2888-6) 13 mg/dL CREAT U (test code = 2023390842) 156.2 mg/dL Protein/Creatinine Ratio Urine 0.0-2.0 (test code = 2413722452) [facility] AG-AB WITH [id number] 06:12:14 Test Item Value Reference Range Interpretation Comments HIV Negative Negative Semi-quantitative (test code = 81160-5) KARLA (test code = Non-reactive for HIV-1 KARLA) antigen and HIV-1/HIV-2 antibodies. ?No laboratory evidence of HIV infection. ?Repeat in 2-4 weeks if acute HIV infection is suspected. [facility] [id number] 06:12:14 Test Item Value Reference Range Interpretation Comments HIV Negative Negative Semi-quantitative (test code = 82483-8) KARLA (test code = Non-reactive for HIV-1 KARLA) antigen and HIV-1/HIV-2 antibodies. ?No laboratory evidence of HIV infection. ?Repeat in 2-4 weeks if acute HIV infection is suspected. [facility]burgHEPATITIS B SURFACE [id number] 06:03:09 Test Item Value Reference Range Interpretation Comments HBsAg Semi-Quantitative (test code = Negative Negative 5195-3) [facility]HEAD[facility] M[facility]HESTERTIS B SURFACE [id number] 06:03:09 Test Item Value Reference Range Interpretation Comments HBsAg Semi-Quantitative (test code = Negative Negative 5195-3) [facility]burgUric Acid [id number] 05:31:11 Test Item Value Reference Range Interpretation Comments URIC ACID (test code = 7587202348) 4.7 mg/dL 2.9-6.0 Lab Interpretation (test code = Normal 41632-3) [facility] Svqcbqszxz3547-55-00 05:31:11 Test Item Value Reference Range Interpretation Comments CREATININE (test code = 0.49 mg/dL 0.50-1.04 L 4893974340) eGFR (test code = mL/min/1.73m2 1972316076) KARLA (test code = KARLA) Association of Glomerular Filtration Rate (GFR) and Staging of Kidney Disease* + --+ --+ ------+| GFR (mL/min/1.73 m2) ?| With Kidney Damage ?| ?Without Kidney Damage+ --------+ --------+ +| ?>90 ?| ?Stage one ?| ? Normal ?+ ---+ ---+ -------+| ?60-89 ?| ?Stage two ?| ? Decreased GFR ? + --+ --+ ------+| ?30-59 ?| ?Stage three ?| ? Stage three ? + --+ --+ ------+| ?15-29 ?| ?Stage four ? | ? Stage four ?+ ---+ ---+ -------+| ?<15 (or dialysis) ? ?| ?Stage five ? | ? Stage five ?+ ---+ ---+ -------+ *Each stage assumes the associated GFR level has been in effect for at least three months. ?Stages 1 to 5, with or without kidney disease, indicate chronic kidney disease. Notes: Determination of stages one and two (with eGFR >59mL/min/1.73 m2) requires estimation of kidney damage for at least three months as defined by structural or functional abnormalities of the kidney, manifested by either:Pathological abnormalities or Markers of kidney damage (including abnormalities in the composition of the blood or urine or abnormalities in imaging tests). Lab Interpretation Abnormal (test code = 20515-1) [facility] (Asparate Amino Transfer)2020-07-15 05:31:11 Test Item Value Reference Range Interpretation Comments AST(SGOT) (test code = 4311884822) 19 U/L 13-40 Lab Interpretation (test code = Normal 90496-3) [facility]burg[facility] Acid [id number] 05:31:11 Test Item Value Reference Range Interpretation Comments URIC ACID (test code = 2845763730) 4.7 mg/dL 2.9-6.0 Lab Interpretation (test code = Normal 25859-8) [facility] Xndkskvhvk2639-21-78 05:31:11 Test Item Value Reference Range Interpretation Comments CREATININE (test code = 0.49 mg/dL 0.50-1.04 L 7005153704) eGFR (test code = mL/min/1.73m2 0313889268) KARLA (test code = KARLA) Association of Glomerular Filtration Rate (GFR) and Staging of Kidney Disease* + --+ --+ ------+| GFR (mL/min/1.73 m2) ?| With Kidney Damage ?| ?Without Kidney Damage+ --------+ --------+ +| ?>90 ?| ?Stage one ?| ? Normal ?+ ---+ ---+ -------+| ?60-89 ?| ?Stage two ?| ? Decreased GFR ? + --+ --+ ------+| ?30-59 ?| ?Stage three ?| ? Stage three ? + --+ --+ ------+| ?15-29 ?| ?Stage four ? | ? Stage four ?+ ---+ ---+ -------+| ?<15 (or dialysis) ? ?| ?Stage five ? | ? Stage five ?+ ---+ ---+ -------+ *Each stage assumes the associated GFR level has been in effect for at least three months. ?Stages 1 to 5, with or without kidney disease, indicate chronic kidney disease. Notes: Determination of stages one and two (with eGFR >59mL/min/1.73 m2) requires estimation of kidney damage for at least three months as defined by structural or functional abnormalities of the kidney, manifested by either:Pathological abnormalities or Markers of kidney damage (including abnormalities in the composition of the blood or urine or abnormalities in imaging tests). Lab Interpretation Abnormal (test code = 83151-2) [facility] (Asparate Amino Transfer)2020-07-15 05:31:11 Test Item Value Reference Range Interpretation Comments AST(SGOT) (test code = 7047079141) 19 U/L 13-40 Lab Interpretation (test code = Normal 21923-5) [facility]burgAlanine Amino Transferase (SGPT)2020-07-15 05:31:10 Test Item Value Reference Range Interpretation Comments ALTv (test code = 1742-6) 12 U/L 5-35 Lab Interpretation (test code = Normal 90950-4) [facility]burgAlanine Amino Transferase (SGPT)2020-07-15 05:31:10 Test Item Value Reference Range Interpretation Comments ALTv (test code = 1742-6) 12 U/L 5-35 Lab Interpretation (test code = Normal 68646-5) [facility]burgLactate Ispxjlhlvefpv3989-42-37 05:30:50 Test Item Value Reference Range Interpretation Comments LDH (test code = 5136080704) 459 U/L 300-600 Lab Interpretation (test code = Normal 72732-3) [facility]burgLatnate Bnolfzrusiazp2077-17-50 05:30:50 Test Item Value Reference Range Interpretation Comments LDH (test code = 4463155890) 459 U/L 300-600 Lab Interpretation (test code = Normal 14131-0) [facility]burgType and Screen - ONCE [id number] 05:21:09 Test Item Value Reference Range Interpretation Comments ABO & RH (test code B POSITIVE Performe d at [facility] = 20) Laboratory Serv [facility] [place] [address] s [address]Zjks Free: [phone] A No. [id number] IAT (test code = Negative Performed a t [facility] 1185) Laboratory [facility] [place] [address] s 524[address]Amlf Free: [phone] A No. [id number] [facility] - ONCE [id number] 05:21:09 Test Item Value Reference Range Interpretation Comments ABO & RH (test code B POSITIVE Performe d at [facility] = 20) Laboratory [facility] [address] [place] [address] s [address]Nmad Free: [phone] A No. [id number] IAT (test code = Negative Performed a t [facility] 1185) Laboratory [facility] [place] [address] s [address]Ilkc Free: [phone] A No. [id number] [facility] with Uobbqjdabnie8196-50-28 05:01:18 Test Item Value Reference Range Interpretation Comments WBC (test code = See_Comment H [Automated 6690-2) message] The system which generated this result transmit kishor reference range : 4.30 - 11.10 10*3/?L. The reference range was not used to interpret this result as normal/abnormal . RBC (test code = See_Comment L [Automated 789-8) message] The system which generated this result transmit kishor reference range : 3.93 - 5.25 10*6/?L. The reference range was not used to interpret this result as normal/abnormal . HGB (test code = 10.9 g/dL 11.6-15.0 L 718-7) HCT (test code = 34.4 % 35.7-45.2 L 4544-3) MCV (test code = 88.4 fL 80.6-95.5 787-2) MCH (test code = 28.0 pg 25.9-32.8 785-6) MCHC (test code = 31.7 g/dL 31.6-35.1 786-4) RDW-SD (test code = 48.0 fL 39.0-49.9 01595-6) RDW-CV (test code = 14.8 % 12.0-15.5 788-0) PLT (test code = See_Comment [Automated 777-3) message] The system which generated this result transmit kishor reference range : 166 - 358 10*3/ ?L. The reference range was not u sed to interpret th is result as normal/abnormal . MPV (test code = 9.6 fL 9.5-12.9 92847-2) NRBC/100 WBC (test See_Comment [Automat ed code = 1608929238) message] The system which generated this result transmit kishor reference range : 0.0 - 10.0 /100 WBCs. The reference range was not used to interpret this result as normal/abnormal . NRBC x10^3 (test code <0.01 See_Comment [Auto mated = 1457616015) message] The system which generated this result transmit kishor reference range : 10*3/?L. The reference range was not used to interpret this result as normal/abnormal . GRAN MAT (NEUT) % 74.5 % (test code = 770-8) IMM GRAN % (test code 1.60 % = 1827650981) LYMPH % (test code = 15.7 % 736-9) MONO % (test code = 7.1 % 5905-5) EOS % (test code = 0.9 % 713-8) BASO % (test code = 0.2 % 706-2) GRAN MAT x10^3(ANC) 11.97 10*3/uL 1.88-7.09 H (test code = 1383458694) IMM GRAN x10^3 (test 0.25 10*3/uL 0.00-0.06 H code = 1037527128) LYMPH x10^3 (test code 2.52 10*3/uL 1.32-3.29 = 731-0) MONO x10^3 (test code 1.14 10*3/uL 0.33-0.92 H = 742-7) EOS x10^3 (test code = 0.14 10*3/uL 0.03-0.39 711-2) BASO x10^3 (test code 0.04 10*3/uL 0.01-0.07 = 704-7) Lab Interpretation Abnormal (test code = 30133-8) [facility] with Kcxourxrbcsw7471-90-67 05:01:18 Test Item Value Reference Range Interpretation Comments WBC (test code = See_Comment H [Automated 6690-2) message] The system which generated this result transmit kishor reference range : 4.30 - 11.10 10*3/?L. The reference range was not used to interpret this result as normal/abnormal . RBC (test code = See_Comment L [Automated 789-8) message] The system which generated this result transmit kishor reference range : 3.93 - 5.25 10*6/?L. The reference range was not used to interpret this result as normal/abnormal . HGB (test code = 10.9 g/dL 11.6-15.0 L 718-7) HCT (test code = 34.4 % 35.7-45.2 L 4544-3) MCV (test code = 88.4 fL 80.6-95.5 787-2) MCH (test code = 28.0 pg 25.9-32.8 785-6) MCHC (test code = 31.7 g/dL 31.6-35.1 786-4) RDW-SD (test code = 48.0 fL 39.0-49.9 17380-9) RDW-CV (test code = 14.8 % 12.0-15.5 788-0) PLT (test code = See_Comment [Automated 777-3) message] The system which generated this result transmit kishor reference range : 166 - 358 10*3/ ?L. The reference range was not u sed to interpret th is result as normal/abnormal . MPV (test code = 9.6 fL 9.5-12.9 10050-2) NRBC/100 WBC (test See_Comment [Automat ed code = 4254475337) message] The system which generated this result transmit kishor reference range : 0.0 - 10.0 /100 WBCs. The reference range was not used to interpret this result as normal/abnormal . NRBC x10^3 (test code <0.01 See_Comment [Auto mated = 3490788782) message] The system which generated this result transmit kishor reference range : 10*3/?L. The reference range was not used to interpret this result as normal/abnormal . GRAN MAT (NEUT) % 74.5 % (test code = 770-8) IMM GRAN % (test code 1.60 % = 0643441209) LYMPH % (test code = 15.7 % 736-9) MONO % (test code = 7.1 % 5905-5) EOS % (test code = 0.9 % 713-8) BASO % (test code = 0.2 % 706-2) GRAN MAT x10^3(ANC) 11.97 10*3/uL 1.88-7.09 H (test code = 7875999537) IMM GRAN x10^3 (test 0.25 10*3/uL 0.00-0.06 H code = 3068227627) LYMPH x10^3 (test code 2.52 10*3/uL 1.32-3.29 = 731-0) MONO x10^3 (test code 1.14 10*3/uL 0.33-0.92 H = 742-7) EOS x10^3 (test code = 0.14 10*3/uL 0.03-0.39 711-2) BASO x10^3 (test code 0.04 10*3/uL 0.01-0.07 = 704-7) Lab Interpretation Abnormal (test code = 21502-9) General acute hospital GLUCOSE (AUTOMATED)2020-07-15 04:49:15 Test Item Value Reference Range Interpretation Comments POCT GLU (test code = 0962358272) 137 mg/dL 70-110 H Lab Interpretation (test code = Abnormal 42332-5) General acute hospital GLUCOSE (AUTOMATED)2020-07-15 04:49:15 Test Item Value Reference Range Interpretation Comments POCT GLU (test code = 5939005474) 137 mg/dL 70-110 H Lab Interpretation (test code = Abnormal 51720-3) [facility]-19 (ID NOW RAPID TESTING)2020-07-15 03:33:51 Test Item Value Reference Range Interpretation Comments SARS-CoV-2 Rapid ID NOW Not Detected Not Detected (test code = 55408-8) KARLA (test code = KARLA) ID NOW COVID-19 Assay is an isothermal nucleic acid amplification test intended for the qualitative detection of nucleic acid from SARS-CoV-2 viral RNA in nasopharyngeal (QUALITATIVE FIELD PROJECT MANAGER) specimens. It is used under Emergency Use Authorization (EUA) by FDA. The limit of detection (LOD) of the assay is 125 Genome Equivalents/mL. A positive result is indicative of the presence of SARS-CoV-2 RNA. ?Clinical correlation with patient history and other diagnostic information is necessary to determine patient infection status. A negative (Not Detected) result does not preclude SARS-CoV-2 infection. In patients with clinical symptoms and other tests that are consistent with SARS-CoV-2 infection, negative results should be treated as presumptive negative and a new specimen should be tested with alternative PCR molecular test. Invalid: Please collect a new specimen for repeat patient testing if clinically indicated. Lab Interpretation Normal (test code = 36217-2) [facility]-19 (ID NOW RAPID TESTING)2020-07-15 03:33:51 Test Item Value Reference Range Interpretation Comments SARS-CoV-2 Rapid ID NOW Not Detected Not Detected (test code = 25166-1) KARLA (test code = KARLA) ID NOW COVID-19 Assay is an isothermal nucleic acid amplification test intended for the qualitative detection of nucleic acid from SARS-CoV-2 viral RNA in nasopharyngeal (QUALITATIVE FIELD PROJECT MANAGER) specimens. It is used under Emergency Use Authorization (EUA) by FDA. The limit of detection (LOD) of the assay is 125 Genome Equivalents/mL. A positive result is indicative of the presence of SARS-CoV-2 RNA. ?Clinical correlation with patient history and other diagnostic information is necessary to determine patient infection status. A negative (Not Detected) result does not preclude SARS-CoV-2 infection. In patients with clinical symptoms and other tests that are consistent with SARS-CoV-2 infection, negative results should be treated as presumptive negative and a new specimen should be tested with alternative PCR molecular test. Invalid: Please collect a new specimen for repeat patient testing if clinically indicated. Lab Interpretation Normal (test code = 51018-3) [facility] NON-STRESS [id number] 21:45:26NST: cat 1, reactive/reassuring, no ctx, +accels, neg decls, moderate variability General acute hospital URINALYSIS W SPECIFIC [id number] 19:59:00 Test Item Value Reference Range Interpretation Comments POCT U SP GRAV (test code = 3255) . 1.005-1.025 POCT PH U (test code = 3254) . 5-8 POCT U LEUK EST (test code = 3263) . Negative - Negative POCT U NIT (test code = 3262) . Negative - Negative POCT U PROT (test code = 3259) Trace Negative - Negative POCT U GLU (test code = 3256) Neg Negative - Negative POCT U KETONE (test code = 3258) . Negative - Negative POCT U UROBILI (test code = 3260) . 0.2-1 POCT U BILI (test code = 3261) . Negative - Negative POCT U BLD (test code = 3257) . Negative - Negative POCT U COLOR (test code = 3266) POCT U APPEAR (test code = 3267) [facility] NON-STRESS [id number] 03:09:14NST reactive and reassuring, no ctx [facility]Un[facility] W SPECIFIC [id number] 19:43:00 Test Item Value Reference Range Interpretation Comments POCT U SP GRAV (test code = 3255) . 1.005-1.025 POCT PH U (test code = 3254) 6 mg/dl 5-8 POCT U LEUK EST (test code = Trace Negative - Negative 3263) POCT U NIT (test code = 3262) Neg Negative - Negative POCT U PROT (test code = 3259) Trace Negative - Negative POCT U GLU (test code = 3256) Neg Negative - Negative POCT U KETONE (test code = 3258) None Negative - Negative POCT U UROBILI (test code = 3260) . 0.2-1 POCT U BILI (test code = 3261) . Negative - Negative POCT U BLD (test code = 3257) TRace Negative - Negative POCT U COLOR (test code = 3266) POCT U APPEAR (test code = 3267) [facility] [id number] 20:40:19NST: cat 1, reactive/reassuring, no ctx, +accels, neg decls, moderate variability General acute hospital URINALYSIS W SPECIFIC [id number] 19:47:00 Test Item Value Reference Range Interpretation Comments POCT U SP GRAV (test code = 3255) . 1.005-1.025 POCT PH U (test code = 3254) . 5-8 POCT U LEUK EST (test code = 3263) . Negative - Negative POCT U NIT (test code = 3262) . Negative - Negative POCT U PROT (test code = 3259) Trace Negative - Negative POCT U GLU (test code = 3256) Neg Negative - Negative POCT U KETONE (test code = 3258) . Negative - Negative POCT U UROBILI (test code = 3260) . 0.2-1 POCT U BILI (test code = 3261) . Negative - Negative POCT U BLD (test code = 3257) . Negative - Negative POCT U COLOR (test code = 3266) POCT U APPEAR (test code = 3267) [facility] [id number] 13:06:59 Test Item Value Reference Range Interpretation Comments URINE CULTURE (test 10,000 - 100,000 CFU/mL code = 630-4) mixed aerobic organisms - suggests endogenous microbial contamination [facility] NON-STRESS [id number] 01:18:29NST reactive and reassuring, no ctx notedUnChildren[facility] URINALYSIS W SPECIFIC [id number] 18:38:00 Test Item Value Reference Range Interpretation Comments POCT U SP GRAV (test code = 3255) . 1.005-1.025 POCT PH U (test code = 3254) 6 mg/dl 5-8 POCT U LEUK EST (test code = Trace Negative - Negative 3263) POCT U NIT (test code = 3262) Pos Negative - Negative POCT U PROT (test code = 3259) Trace Negative - Negative POCT U GLU (test code = 3256) Neg Negative - Negative POCT U KETONE (test code = 3258) None Negative - Negative POCT U UROBILI (test code = 3260) . 0.2-1 POCT U BILI (test code = 3261) . Negative - Negative POCT U BLD (test code = 3257) Large Negative - Negative POCT U COLOR (test code = 3266) POCT U APPEAR (test code = 3267) [facility] NON-STRESS [id number] 20:01:23NST: cat 1, reactive/reassuring, no ctx, +accels, neg decls, moderate variability [facility] NON-STRESS [id number] 20:01:23NST: cat 1, reactive/reassuring, no ctx, +accels, neg decls, moderate variability [facility] NON-STRESS [id number] 20:01:23NST: cat 1, reactive/reassuring, no ctx, +accels, neg decls, moderate variability General acute hospital URINALYSIS W SPECIFIC [id number] 19:07:00 Test Item Value Reference Range Interpretation Comments POCT U SP GRAV (test code = . 1.005-1.025 3255) POCT PH U (test code = 3254) . 5-8 POCT U LEUK EST (test code = . Negative - Negative 3263) POCT U NIT (test code = 3262) . Negative - Negative POCT U PROT (test code = 3259) trace Negative - Negative POCT U GLU (test code = 3256) negative Negative - Negative POCT U KETONE (test code = 3258) . Negative - Negative POCT U UROBILI (test code = . 0.2-1 3260) POCT U BILI (test code = 3261) . Negative - Negative POCT U BLD (test code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 Value Reference Range Interpretation Comments ABO & RH (test code B POSITIVE Performe d at [facility] = 20) Laboratory Serv [facility] Blood Bank3 [address] [facility] s [address]Ytlq Free: [phone] A No. [id number] IAT (test code = Negative Performed a t [facility] 1185) Laboratory Serv [facility] Blood Bank3 [facility] s [address]Rpgx Free: [phone] A No. [id number] General acute hospital URINALYSIS W/O SPECIFIC [id number] 16:43:00 Test Item Value Reference Range Interpretation Comments POCT PH U (test code = 3254) . 5-8 POCT U LEUK EST (test code = 3263) . Negative - Negative POCT U NIT (test code = 3262) . Negative - Negative POCT U PROT (test code = 3259) Trace Negative - Negative POCT U GLU (test code = 3256) Neg Negative - Negative POCT U KETONE (test code = 3258) . Negative - Negative POCT U BLD (test code = 3257) . Negative - Negative General acute hospital URINALYSIS GLUCOSE & PROTEIN 2018-09-30 16:01:00 Test Item Value Reference Range Interpretation Comments POCT U PROT (test code = 3259) trace Negative - Negative POCT U GLU (test code = 3256) neg Negative - Negative General acute hospital URINALYSIS GLUCOSE & PROTEIN 2018-09-30 16:01:00 Test Item Value Reference Range Interpretation Comments POCT U PROT (test code = 3259) trace Negative - Negative POCT U GLU (test code = 3256) neg Negative - Negative [facility] W/O SPECIFIC [id number] 14:15:00 Test Item Value Reference Range Interpretation Comments POCT PH U (test code = 3254) . 5-8 POCT U LEUK EST (test code = 3263) . Negative - Negative POCT U NIT (test code = 3262) . Negative - Negative POCT U PROT (test code = 3259) Trace Negative - Negative POCT U GLU (test code = 3256) Neg Negative - Negative POCT U KETONE (test code = 3258) . Negative - Negative POCT U BLD (test code = 3257) . Negative - Negative [facility] W/O SPECIFIC [id number] 14:15:00 Test Item Value Reference Range Interpretation Comments POCT PH U (test code = 3254) . 5-8 POCT U LEUK EST (test code = 3263) . Negative - Negative POCT U NIT (test code = 3262) . Negative - Negative POCT U PROT (test code = 3259) Trace Negative - Negative POCT U GLU (test code = 3256) Neg Negative - Negative POCT U KETONE (test code = 3258) . Negative - Negative POCT U BLD (test code = 3257) . Negative - Negative [facility] SPECIFIC [id number] 14:15:00 Test Item Value Reference Range Interpretation Comments POCT PH U (test code = 3254) . 5-8 POCT U LEUK EST (test code = 3263) . Negative - Negative POCT U NIT (test code = 3262) . Negative - Negative POCT U PROT (test code = 3259) Trace Negative - Negative POCT U GLU (test code = 3256) Neg Negative - Negative POCT U KETONE (test code = 3258) . Negative - Negative POCT U BLD (test code = 3257) . Negative - Negative [facility]"
--- NOTE | 2021-05-22 00:40 | ER ---
Nurse's Notes [facility] Name: Gail Juárez Age: 25 yrs Sex: Female : 1995 Arrival Date: 05/21/2021 Time: 21:22 Bed Waiting Private MD: Diagnosis: Presentation: 05/21 22:07 Chief complaint: Patient states: "earlier today I ate some leftover food, and since lp1 then I have been vomiting and have a bad headache"; Reports general abdominal pain, nausea, headache, diarrhea. Coronavirus screen: At this time, the client does not indicate any symptoms associated with coronavirus-19. Risk Assessment: Do you want to hurt yourself or someone else? Patient reports no desire to harm self or others. Onset of symptoms was May 21, 2021. 22:07 Method Of Arrival: Ambulatory lp1 22:07 Acuity: CHAYO 3 lp1 22:08 Ebola Screen: No symptoms or risks identified at this time. lp1 22:09 Initial Sepsis Screen: Does the patient meet any 2 criteria? No. Patient's initial lp1 sepsis screen is negative. Does the patient have a suspected source of infection? No. Patient's initial sepsis screen is negative. 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 - Social history:: Smoking status: Patient denies any tobacco usage or history of. Vital Signs: 22:09 BP 125 / 74; Pulse 84; Resp 16; Temp 98.5(O); Pulse Ox 99% on R/A; Weight 108.86 kg lp1 (R); Height 5 ft. 7 in. (170.18 cm); Pain 6/10; 22:09 Body Mass Index 37.59 (108.86 kg, 170.18 cm) lp1 ED Course: :22 Patient arrived in ED. kz 22:08 Triage completed. lp1 22:08 Arm band placed on. lp1 05/22 00:05 Jus Valdez NP is PHCP. pm1 00:05 Nahum Roberts MD is Attending Physician. pm1 00:08 Patient's name was called from [email or web address]. No response. lp1 00:38 Patient's name was called from [email or web address]. No response. Unable to locate patient. Will lp1 disposition as left without being seen by a provider. Administered Medications: No medications were administered Outcome: 00:39 Patient left the ED. lp1 Signatures: Kim Boyer RN RN lp1 Jus Valdez NP [employer] pm1 Evelyn Swan
[2021-05-22 03:16] VITALS: BP 125/74; TEMP 98.5; O2SAT 99
== END 2021-05-22 00:39 | disposition left against medical advice (07) ==
LOC: ER 21:11
DX: Z53.21 Procedure and treatment not carried out due to patient leaving prior to being seen by health care provider (principal)
CPT/HCPCS: 99281

== ENCOUNTER 2022-02-23 15:46 | Emergency (ER) | payer OTHER ==
--- OUTSIDE RECORDS SUMMARY | 2022-02-23 16:00 | XMS REPORT | Continuity of Care Document ---
:1995 Author Organization [facility] t Address [address] [place] [address] Care Team Providers Name Role Phone Paul Montero Primary Care Physician LIZETTE LUGO Attending Clinician Unavailable Lizette Patino Attending Clinician [phone] Naomi Souza MD Attending Clinician [phone] Kate Alexandre MD Attending Clinician Risk, Hjk-Zlxlh-Hq/High Attending Clinician Unavailable Mary Grace Beyer Attending Clinician Ultrasound, Juan-Mfjustine Attending Clinician Unavailable Dion Acosta MD Attending Clinician TONIO ECHOLS Attending Clinician Unavailable Jaclyn Duval MD Attending Clinician Radha Mehta MD Attending Clinician Doctor Unassigned, [place] Attending Clinician Unavailable ARSALAN BLANDON Attending Clinician Unavailable Arsalan Blandon DO Attending Clinician DAYDAY GRAHAM Attending Clinician Unavailable Lab, Ang-Rmchp Attending Clinician Unavailable Santos PEANUT BLANCHER, Dayday Sanchez Attending Clinician Candice CNP, Tara Otero Attending Clinician Tamiko Goncalves MD Attending Clinician Mickey MCLEOD, Paul Attending Clinician PAUL AREVALO Attending Clinician Unavailable theresa Attending Clinician Unavailable Altagracia Blandon MD Attending Clinician Yas Cordero Attending Clinician Herman KWOK, Virginie Galvez Attending Clinician Unavailable KATE ALEXANDRE Admitting Clinician Unavailable JACLYN DUVAL Admitting Clinician Unavailable RADHA MEHTA Admitting Clinician Unavailable Libby GOMEZ, Naomi Baig Admitting Clinician [phone] Jaclyn Duval MD Admitting Clinician Radha Mehta MD Admitting Clinician theresa Admitting Clinician Unavailable Altagracia Blandon MD Admitting Clinician Yas Cordero Admitting Clinician Payers Payer Name Policy Type Policy Number Effective Date Expiration Date Ashish leary [facility] [id number] 2020 00:00:00 MEDICAID PENDING PENDING 2020 00:00:00 Problems Condition Condition Condition Status Onset Resolution Last Treating Co mments Source Name Details Category Date Date Treatment Clinician Date Other Other Disease Active Univers general general 7-14 ity of counseling [place] and advice and advice 00 Or dical for for Branch contracept contracept mark mark management management Well woman Well woman Disease Active U nivers exam exam 6-21 ity of 00:00: [place] 00 Medical Branch History of History of Disease Active U nivers tubal tubal 6-21 ity of ligation ligation 00:00: [place] 00 [facility] Single Single Disease Active Univers liveborn liveborn 5-30 ity of 00:00: [place] 00 [facility] Disease Active Univers (spontaneo (spontaneo 5-30 it y of us vaginal us vaginal 00:[place] delivery) delivery) 00 [facility] 37 weeks 37 weeks Disease Active Unive rs gestation gestation 5-28 ity of of of 00:00: [place] 00 [facility] 36 weeks 36 weeks Disease Active Unive rs gestation gestation 5-22 ity of of of 00:00: [place] 00 [facility] High-risk High-risk Disease Active Uni vers 5-20 ity of in third in third 00:00: [place] trimester trimester 00 [facility] Oral Oral Disease Active Univers hypoglycem hypoglycem 5-20 it y of ic ic 00:00: [place] controlled controlled 00 Me dical [place] classifica classifica tion A2 tion A2 gestationa gestationa l diabetes l diabetes mellitus mellitus (GDM) (GDM) Abnormal Abnormal Disease Active Unive rs finding in finding in 5-20 it y of urine urine 00:00: [place] 00 [facility] Hematuria, Hematuria, Disease Active U nivers unspecifie unspecifie 5-20 it y of d type d type 00:00: [place] 00 [facility] Diabetes Diabetes Disease Active Unive rs mellitus mellitus 3-18 ity of complicati complicati 00:00: [place] ng ng 00 Medical , , Br anch antepartum antepartum GDM GDM Disease Active Univers (gestation (gestation 3-18 it y of al al 00:00: [place] diabetes diabetes 00 Medica l mellitus) mellitus) Bran ch Abnormal Abnormal Disease Active Overview: Un indra maternal maternal 3-10 Formattin ity of glucose glucose 00:00: g of this [place] tolerance, tolerance, 00 note Me dical antepartum antepartum might be Branch different from the original. Pending 3hr gtt Anemia of Anemia of Disease Active Uni vers mother in mother in 3-05 ity of , , 00:00[place] antepartum antepartum 00 Me dical Branch Dizziness Dizziness Disease Active Uni vers and and 3-04 ity of giddiness giddiness 00:00: [facility] Obesity Obesity Disease Active 2020- Univers (BMI (BMI 1-17 ity of 30-39.9) 30-39.9) 00:00: [place] [facility] Supervisio Supervisio Disease Active 2020- U nivers n of high n of high 1-17 ity of risk risk 00:00: [place] 00 [facility] in second in second Bran ch trimester trimester Multiparit Multiparit Disease Active 2019-02 U nivers y y 1-17 ity of 00:00: [place] [facility] Obesity Obesity Disease Active 2019-02 Univers complicati complicati 1-17 it y of ng ng 00:00: [place] , , 00 Me dical childbirth childbirth Br anch , or , or puerperium puerperium , , antepartum antepartum Tubal Tubal Disease Active 2019-02 Univers ligation ligation 1-17 ity of evaluation evaluation 00:00: [place] 00 [facility] Refused Refused Disease Active 2019-02 Univers influenza influenza 1-17 ity of vaccine vaccine 00:00: [place] [facility] Elevated Elevated Disease Active 2019-02 Unive rs BP without BP without 1-17 it y of diagnosis diagnosis 00:00: [facility] hino[facility]osa of of 00 Medical hypertensi hypertensi Br anch on on Nausea and Nausea and Disease Active 2019- U nivers vomiting vomiting 1-17 ity of during during 00:00: [place] 00 [facility] Branch Disease Active 2019-02 Uni vers screening screening 1-17 ity of for Down for Down 00:00: [place] syndrome syndrome 00 Medica l declined declined Branch Obesity in Obesity in Disease Active 2020- U nivers 1-17 ity of 00:00: [place] [facility] Nexplanon Nexplanon Disease Active 2018-02 Overview: Univers removal removal 0-22 Placed ity of 00:00: 11/2018 [place] [address] removed Medical 02/2019 Branch Well woman Well woman Disease Active 2019- U nivers exam exam 0-07 ity of 00:00: [place] [facility] Routine Routine Disease Active 2019 Univers 9-16 it y of follow-up follow-up 00:00: [facility] Anemia, Anemia, Disease Active 2019 Univers 8-26 it y of 00:00: [place] [facility] Anemia, Anemia, Disease Active Univers 8-26 it y of 00:00: [place] [facility] 38 weeks 38 weeks Disease Active Unive rs gestation gestation 8-25 ity of of of 00:00: [place] 00 [facility] Branch Nausea & Nausea & Disease Active Unive rs vomiting vomiting 8-25 ity of 00:00: [place] [address] Medical Branch Encounter Encounter Disease Active Uni vers for for 8-25 ity of induction induction 00:00: [place] s of labor of labor 00 Medica l Branch Obesity Obesity Disease Active Univers (BMI (BMI 8-12 ity of 30-39.9) 30-39.9) 00:00: [place] [address] Medical Branch Decreased Decreased Disease Active Uni vers 8-12 ity of movements movements 00:00: [place] in third in third 00 Medica l trimester trimester Bran ch 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:00: [place] 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 00 [facility] Branch affecting affecting Pain of Pain of Disease Active Univers round round 5-20 ity of ligament ligament 00:00: [place] affecting affecting 00 [facility] , , Br anch antepartum antepartum Vaginal Vaginal Disease Active Univers yeast yeast 3-13 ity of infection infection 00:00[place] Headache Headache Disease Active Unive rs in in 3-04 [place] of [place] Nausea and Nausea and Disease Active U nivers vomiting vomiting 2-04 ity of during during 00:00: [place] 00 [facility] Branch Chlamydia Chlamydia Disease Active Overview: Univers trachomati [...] Disease Active Overview : Univers hypothyroi hypothyroi -04 No it y of dism dism 00:00: medicatio [place] 00 n, Medical consider Branch labs second trimester Rubella Rubella Disease Active 2013-02 Univers non-immune non-immune 0-22 it y of status, status, 00:00: [place] antepartum antepartum 00 Me dical Branch Obesity Obesity Disease Active 2013-02 Overview: Univ ers affecting affecting 0-21 Formattin i ty of 00:00: g of this [place] in third in third 00 note Medica l trimester trimester might be Br anch different from the original. ICD10 Diagnosis Term Bass String [employer] Supervisio Supervisio Disease Active 2013-02 U nivers n of n of 0-21 ity of high-risk high-risk 00:00[place] [facility] Nausea and Nausea and Disease Resolve 2013-022018-02-20 2018-02-20 [facility] vomiting vomiting d 0-21 00:00:00 21:38:10 it y of in in 00:00: [place] 00 [facility] prior to prior to Branch 22 weeks 22 weeks gestation gestation Allergies, Adverse Reactions, Alerts Allergy Allergy Status Severity Reaction(s) Onset Inactive Treating Comm ents Source Name Type Date Date Clinician No Known DA Active U 2020-0 [facility] Allergie 4-18 [place] 00:00: e 00 Medical [place] No Known DA Active U 2020-0 [facility] Allergie 4-18 [place] 00:00: e 00 Medical [place] NO KNOWN Drug Active Univers ALLERGIE Class ity of S [facility] Social History Social Habit Start Date Stop Date Quantity Comments Source ASSERTION 2019-11-08 University of 00:00:00 [facility] Exposure to Not sure University of SARS-CoV-2 [facility] (event) Branch Alcohol intake 2020-08-30 2020-08-30 Current University of 00:00:00 00:00:00 non-drinker of [facility] alcohol Branch (finding) Tobacco use and 2020-08-30 2020-08-30 Never used Universit y of exposure 00:00:00 00:00:00 [facility] Sex Ass[birth year] At [birth year] Universit y of 00:00:00 00:00:00 [facility] Smoking Status Start Date Stop Date Source Never smoker [facility] Medications Ordered Filled Start Stop Current Ordering Indication Dosage Frequency Signature Comments Components Source Medication Medication Date Date Medication? Clinician (SIG) Name Name HYDROcodone Yes 1{tbl} 1 tablet, Univers -acetaminop 5-30 Oral, ity of hen (NORCO 01:56: Q6HPRN, [place] 5) 5-325 mg 22 Starting Medi nba tablet 1 Sat Branch tablet 07/15/20 at 2055, Until Discontinu ed, Routine, Pain (scale 7-10) HYDROcodone 2020- No 1{tbl} 1 tablet, Univers -acetaminop 5-30 [...] dose, Branch mcg Conditiona l, Routine rho(D) No 300ug 300 mcg, Unive rs immune [...] Push, ity of (PF)) 01:39: 21:14 Q8HPRN, [place] injection 4 06 :16 Starting Medi nba mg Sat Branch 07/15/20 at 2038, Until 07/16/20 at 1614, Routine, Nausea and Vomiting (N/V) simethicone 2020- No 160mg 160 mg, U nivers (GAS RELIEF 5-30 05-30 Oral, ity of (SIMETHICON 01:39: 21:14 PC+HSPRN, [place] E)) 06 :16 Starting Medical chewable Sat Branch tablet 160 07/15/20 at mg 2038, Until 07/16/20 at 1614, Routine, Gas acetaminoph 0 Yes 650mg 650 mg, Un indra en 5-30 Oral, ity of (TYLENOL) 01:39: Q6HPRN, [place] tablet 650 05 Starting Medic al mg Sat Branch 07/15/20 at 2038, Until Discontinu ed, Routine, Pain (scale 1-3) diphenhydrA 0 Yes 25mg 25 mg, Univ ers MINE 5-30 Oral, ity of (BENADRYL) 01:39: Q6HPRN, [place] tablet 25 05 Starting Medica l mg Sat Branch 07/15/20 at 2038, Until Discontinu ed, Routine, Sleep, Itching diphenhydrA 2020-0 Yes 25mg 25 mg, IV U nivers MINE-0.9 % 5-30 Piggyback, ity of sod.chlr 01:39: Administer [place] (BENADRYL) 05 over 30 Medica l 25 mg/50 mL Minutes, Bran ch piggyback Q6HPRN, 25 mg Starting 07/15/20 at 2038, Until Discontinu ed, Routine, Itching docusate 2020-0 Yes 240mg 240 mg, Unive rs calcium 5-30 Oral, ity of (SURFAK) 01:39: QDAILYPRN, [place] capsule 240 05 Starting Medi nba mg Sat Branch 07/15/20 at 2038, Until Discontinu ed, Routine, Constipati on magnesium Yes 30mL 30 mL, Univer s hydroxide 30 Oral, ity of (MILK OF 01:39: QDAILYPRN, [...] No 650mg 650 mg, U nivers en 07-16 05-30 Oral, ity of (TYLENOL) 01:39: 21:14 Q6HPRN, [...] 25mg 25 mg, IV Univers MINE-0.9 % 07-16 05-30 Piggyback, it y of sod.chlr 01:39: 21:14 [...] No 30mL 30 mL, Unive rs hydroxide 5-30 05-30 Oral, ity of (MILK OF 01:39: 21:14 QDAILYPRN, [place] MAGNESIA) 05 :16 Starting Medica l 400 mg/5 mL Sat Branch suspension 07/15/20 at 30 mL 2038, Until 07/16/20 at 1614, Routine, Constipati on benzocaine- 2020- No Topical, U nivers menthol 5-30 05-30 PRN, ity of (DERMOPLAST 01:39: 21:14 Starting [place] ) 20-0.5 % 05 :16 Sat Medical topical 07/15/20 at Branch spray 2038, Until 07/16/20 at 1614, Routine, Perineum discomfort acetaminoph 2020- No 1000mg 1,000 mg, Univers en ADULT 530 05-30 IV ity of (OFIRMEV) 01:00: 00:23 [place]fusion, [place] injection 00 :00 Administer Medi nba 1,000 mg over 15 Branch Minutes, ONCE, 1 dose, 07/15/20 at 2000, Routine, PACU
Indicatio n: Perioperat mark Patient ketorolac 2020- No 30mg 30 mg, Unive rs (TORADOL) 5-30 05-30 Slow IV ity of injection 00:01: 00:51 [place], [place] 30 mg 12 :00 Q6HPRN, 1 Medical dose, Branch Starting 07/15/20 at 1901, Until 07/15/20 at 1951, Routine, Pain (scale 4-6), PACU
[facility] Rest[facility] : KELLEN KENNEDY ibuprofen Yes [id number] 600mg Take 1 Univers 600 mg 5-30 tablet by ity of tablet 00:00: mouth [place] 00 every 6 Medical (six) Branch hours as needed (Pain). Take with food or milk. docusate Yes [id number] 240mg Take 1 U nivers calcium 240 5-30 capsule by it y of mg capsule 00:00: mouth once [place] 00 daily as Medical needed for Branch Constipati on. ibuprofen Yes [id number] 600mg Take 1 Univers 600 mg 5-30 tablet by ity of tablet 00:00: mouth [place] 00 every 6 Medical (six) Branch hours as needed for Pain (scale 4-6). Yes [id number] 1{tbl} Take 1 Univers vitamin 5-30 tablet by ity of w/FA tablet 00:00: mouth [place] 00 daily. Medical Branch docusate Yes [id number] 240mg Take 1 U nivers calcium 240 5-30 capsule by it y of mg capsule 00:00: mouth once [place] 00 daily as Medical needed for Branch Constipati on. ferrous Yes [id number] 325mg Take 1 Un indra sulfate 325 5-30 tablet by ity of mg (65 mg 00:00: mouth 2 [place] iron) 00 (two) Medical tablet times Branch daily. ibuprofen Yes [id number] 600mg Take 1 Univers 600 mg 5-30 tablet by ity of tablet 00:00: mouth [place] 00 every 6 Medical (six) Branch hours as needed (Pain). Take with food or milk. docusate Yes [id number] 240mg Take 1 U nivers calcium 240 5-30 capsule by it y of mg capsule 00:00: mouth once [place] 00 daily as Medical needed for Branch Constipati on. ibuprofen Yes [id number] 600mg Take 1 Univers 600 mg 5-30 tablet by ity of tablet 00:00: mouth [place] 00 every 6 Medical (six) Branch hours as needed for Pain (scale 4-6). Yes [id number] 1{tbl} Take 1 Univers vitamin 5-30 tablet by ity of w/FA tablet 00:00: mouth [place] 00 daily. Medical Branch docusate Yes [id number] 240mg Take 1 U nivers calcium 240 5-30 capsule by it y of mg capsule 00:00: mouth once [place] 00 daily as Medical needed for Branch Constipati on. ferrous Yes [id number] 325mg Take 1 Un indra sulfate 325 5-30 tablet by ity of mg (65 mg 00:00: mouth 2 [place] iron) 00 (two) Medical tablet times Branch daily. ibuprofen Yes [id number] 600mg Take 1 Univers 600 mg 5-30 tablet by ity of tablet 00:00: mouth [place] 00 every 6 Medical (six) Branch hours as needed (Pain). Take with food or milk. docusate Yes [id number] 240mg Take 1 U nivers calcium 240 5-30 capsule by it y of mg capsule 00:00: mouth once [place] 00 daily as Medical needed for Branch Constipati on. ibuprofen Yes [id number] 600mg Take 1 Univers 600 mg 5-30 tablet by ity of tablet 00:00: mouth [place] 00 every 6 Medical (six) Branch hours as needed for Pain (scale 4-6). Yes [id number] 1{tbl} Take 1 Univers vitamin 5-30 tablet by ity of w/FA tablet 00:00: mouth [place] 00 daily. Medical Branch docusate Yes [id number] 240mg Take 1 U nivers calcium 240 5-30 capsule by it y of mg capsule 00:00: mouth once [place] 00 daily as Medical needed for Branch Constipati on. ferrous Yes [id number] 325mg Take 1 Un indra sulfate 325 5-30 tablet by ity of mg (65 mg 00:00: mouth 2 [place] iron) 00 (two) Medical tablet times Branch daily. ibuprofen Yes [id number] 600mg Take 1 Univers 600 mg 5-30 tablet by ity of tablet 00:00: mouth [place] 00 every 6 Medical (six) Branch hours as needed (Pain). Take with food or milk. docusate Yes [id number] 240mg Take 1 U nivers calcium 240 5-30 capsule by it y of mg capsule 00:00: mouth once [place] 00 daily as Medical needed for Branch Constipati on. ibuprofen 0 Yes [id number] 600mg Take 1 Univers 600 mg 5-30 tablet by ity of tablet 00:00: mouth [place] 00 every 6 Medical (six) Branch hours as needed for Pain (scale 4-6). Yes [id number] 1{tbl} Take 1 Univers vitamin 5-30 tablet by ity of w/FA tablet 00:00: mouth [place] 00 daily. Medical Branch docusate Yes [id number] 240mg Take 1 U nivers calcium 240 5-30 capsule by it y of mg capsule 00:00: mouth once [place] 00 daily as Medical needed for Branch Constipati on. ferrous Yes [id number] 325mg Take 1 Un indra sulfate 325 5-30 tablet by ity of mg (65 mg 00:00: mouth 2 [place] iron) 00 (two) Medical tablet times Branch daily. ibuprofen Yes [id number] 600mg Take 1 Univers 600 mg 5-30 tablet by ity of tablet 00:00: mouth [place] 00 every 6 Medical (six) Branch hours as needed (Pain). Take with food or milk. docusate Yes [id number] 240mg Take 1 U nivers calcium 240 5-30 capsule by it y of mg capsule 00:00: mouth once [place] 00 daily as Medical needed for Branch Constipati on. ibuprofen Yes [id number] 600mg Take 1 Univers 600 mg 5-30 tablet by ity of tablet 00:00: mouth [place] 00 every 6 Medical (six) Branch hours as needed for Pain (scale 4-6). Yes [id number] 1{tbl} Take 1 Univers vitamin 5-30 tablet by ity of w/FA tablet 00:00: mouth [place] 00 daily. Medical Branch docusate Yes [id number] 240mg Take 1 U nivers calcium 240 5-30 capsule by it y of mg capsule 00:00: mouth once [place] 00 daily as Medical needed for Branch Constipati on. ferrous Yes [id number] 325mg Take 1 Un indra sulfate 325 5-30 tablet by ity of mg (65 mg 00:00: mouth 2 [place] iron) 00 (two) Medical tablet times Branch daily. ibuprofen Yes [id number] 600mg Take 1 Univers 600 mg 5-30 tablet by ity of tablet 00:00: mouth [place] 00 every 6 Medical (six) Branch hours as needed (Pain). Take with food or milk. docusate Yes [id number] 240mg Take 1 U nivers calcium 240 5-30 capsule by it y of mg capsule 00:00: mouth once [place] 00 daily as Medical needed for Branch Constipati on. ibuprofen Yes [id number] 600mg Take 1 Univers 600 mg 5-30 tablet by ity of tablet 00:00: mouth [place] 00 every 6 Medical (six) Branch hours as needed for Pain (scale 4-6). Yes [id number] 1{tbl} Take 1 Univers vitamin 5-30 tablet by ity of w/FA tablet 00:00: mouth [place] 00 daily. Medical Branch docusate Yes [id number] 240mg Take 1 U nivers calcium 240 5-30 capsule by it y of mg capsule 00:00: mouth once [place] 00 daily as Medical needed for Branch Constipati on. ferrous Yes [id number] 325mg Take 1 Un indra sulfate 325 5-30 tablet by ity of mg (65 mg 00:00: mouth 2 [place] iron) 00 (two) Medical tablet times Branch daily. ibuprofen Yes [id number] 600mg Take 1 Univers 600 mg 5-30 tablet by ity of tablet 00:00: mouth [place] 00 every 6 Medical (six) Branch hours as needed (Pain). Take with food or milk. docusate Yes [id number] 240mg Take 1 U nivers calcium 240 5-30 capsule by it y of mg capsule 00:00: mouth once [place] 00 daily as Medical needed for Branch Constipati on. ibuprofen Yes [id number] 600mg Take 1 Univers 600 mg 5-30 tablet by ity of tablet 00:00: mouth [place] 00 every 6 Medical (six) Branch hours as needed for Pain (scale 4-6). Yes [id number] 1{tbl} Take 1 Univers vitamin 5-30 tablet by ity of w/FA tablet 00:00: mouth [place] 00 daily. Medical Branch docusate Yes [id number] 240mg Take 1 U nivers calcium 240 5-30 capsule by it y of mg capsule 00:00: mouth once [place] 00 daily as Medical needed for Branch Constipati on. ferrous Yes [id number] 325mg Take 1 Un indra sulfate 325 5-30 tablet by ity of mg (65 mg 00:00: mouth 2 [place] iron) 00 (two) Medical tablet times Branch daily. ibuprofen Yes [id number] 600mg Take 1 Univers 600 mg 5-30 tablet by ity of tablet 00:00: mouth [place] 00 every 6 Medical (six) Branch hours as needed (Pain). Take with food or milk. docusate Yes [id number] 240mg Take 1 U nivers calcium 240 5-30 capsule by it y of mg capsule 00:00: mouth once [place] 00 daily as Medical needed for Branch Constipati on. ibuprofen Yes [id number] 600mg Take 1 Univers 600 mg 5-30 tablet by ity of tablet 00:00: mouth [place] 00 every 6 Medical (six) Branch hours as needed for Pain (scale 4-6). Yes [id number] 1{tbl} Take 1 Univers vitamin 5-30 tablet by ity of w/FA tablet 00:00: mouth [place] 00 daily. Medical Branch docusate Yes [id number] 240mg Take 1 U nivers calcium 240 5-30 capsule by it y of mg capsule 00:00: mouth once [place] 00 daily as Medical needed for Branch Constipati on. ferrous Yes [id number] 325mg Take 1 Un indra sulfate 325 5-30 tablet by ity of mg (65 mg 00:00: mouth 2 [place] iron) 00 (two) Medical tablet times Branch daily. ibuprofen Yes [id number] 600mg Take 1 Univers 600 mg 5-30 tablet by ity of tablet 00:00: mouth [place] 00 every 6 Medical (six) Branch hours as needed (Pain). Take with food or milk. docusate Yes [id number] 240mg Take 1 U nivers calcium 240 5-30 capsule by it y of mg capsule 00:00: mouth once [place] 00 daily as Medical needed for Branch Constipati on. ibuprofen Yes [id number] 600mg Take 1 Univers 600 mg 5-30 tablet by ity of tablet 00:00: mouth [place] 00 every 6 Medical (six) Branch hours as needed for Pain (scale 4-6). 2020- Yes [id number] 1{tbl} Take 1 Univers vitamin 5-30 tablet by ity of w/FA tablet 00:00: mouth [place] 00 daily. Medical Branch docusate Yes [id number] 240mg Take 1 U nivers calcium 240 5-30 capsule by it y of mg capsule 00:00: mouth once [place] 00 daily as Medical needed for Branch Constipati on. ferrous 2020-0 Yes [id number] 325mg Take 1 Un indra sulfate 325 5-30 tablet by ity of mg (65 mg 00:00: mouth 2 [place] iron) 00 (two) Medical tablet times Branch daily. ibuprofen Yes [id number] 600mg Take 1 Univers 600 mg 5-30 tablet by ity of tablet 00:00: mouth [place] 00 every 6 Medical (six) Branch hours as needed (Pain). Take with food or milk. docusate Yes [id number] 240mg Take 1 U nivers calcium 240 5-30 capsule by it y of mg capsule 00:00: mouth once [place] 00 daily as Medical needed for Branch Constipati on. ibuprofen Yes [id number] 600mg Take 1 Univers 600 mg 5-30 tablet by ity of tablet 00:00: mouth [place] 00 every 6 Medical (six) Branch hours as needed for Pain (scale 4-6). 2020-0 Yes [id number] 1{tbl} Take 1 Univers vitamin 5-30 tablet by ity of w/FA tablet 00:00: mouth [place] 00 daily. Medical Branch docusate 0 Yes [id number] 240mg Take 1 U nivers calcium 240 5-30 capsule by it y of mg capsule 00:00: mouth once [place] 00 daily as Medical needed for Branch Constipati on. ferrous 2020-0 Yes [id number] 325mg Take 1 Un indra sulfate 325 5-30 tablet by ity of mg (65 mg 00:00: mouth 2 [place] iron) 00 (two) Medical tablet times Branch daily. ibuprofen 0 Yes [id number] 600mg Take 1 Univers 600 mg 5-30 tablet by ity of tablet 00:00: mouth [place] 00 every 6 Medical (six) Branch hours as needed (Pain). Take with food or milk. docusate 0 Yes [id number] 240mg Take 1 U nivers calcium 240 5-30 capsule by it y of mg capsule 00:00: mouth once [place] 00 daily as Medical needed for Branch Constipati on. ibuprofen 2020-0 Yes [id number] 600mg Take 1 Univers 600 mg 5-30 tablet by ity of tablet 00:00: mouth [place] 00 every 6 Medical (six) Branch hours as needed for Pain (scale 4-6). 2020- Yes [id number] 1{tbl} Take 1 Univers vitamin 5-30 tablet by ity of w/FA tablet 00:00: mouth [place] 00 daily. Medical Branch docusate Yes [id number] 240mg Take 1 U nivers calcium 240 5-30 capsule by it y of mg capsule 00:00: mouth once [place] 00 daily as Medical needed for Branch Constipati on. ferrous Yes [id number] 325mg Take 1 Un indra sulfate 325 5-30 tablet by ity of mg (65 mg 00:00: mouth 2 [place] iron) 00 (two) Medical tablet times Branch daily. ibuprofen Yes [id number] 600mg Take 1 [facility] 600 mg 5-30 tablet by ity of tablet 00:00: mouth [place] 00 every 6 Medical (six) Branch hours as needed (Pain). Take with food or milk. docusate Yes [id number] 240mg Take 1 U nivers calcium 240 5-30 capsule by it y of mg capsule 00:00: mouth once [place] 00 daily as Medical needed for Branch Constipati on. ibuprofen Yes [id number] 600mg Take 1 [facility] 600 mg 5-30 tablet by ity of tablet 00:00: mouth [place] 00 every 6 Medical (six) Branch hours as needed for Pain (scale 4-6). 2020- Yes [id number] 1{tbl} Take 1 [facility] vitamin 5-30 tablet by ity of w/FA tablet 00:00: mouth [place] 00 daily. Medical Branch docusate Yes [id number] 240mg Take 1 U nivers calcium 240 5-30 capsule by it y of mg capsule 00:00: mouth once [place] 00 daily as Medical needed for Branch Constipati on. ferrous 0 Yes [id number] 325mg Take 1 [facility] indra sulfate 325 5-30 tablet by ity of mg (65 mg 00:00: mouth 2 [place] iron) 00 (two) Medical tablet times Branch daily. ibuprofen Yes [id number] 600mg Take 1 [facility] 600 mg 5-30 tablet by ity of tablet 00:00: mouth [place] 00 every 6 Medical (six) Branch hours as needed (Pain). Take with food or milk. docusate Yes [id number] 240mg Take 1 U nivers calcium 240 5-30 capsule by it y of mg capsule 00:00: mouth once [place] 00 daily as Medical needed for Branch Constipati on. ibuprofen Yes [id number] 600mg Take 1 [facility] 600 mg 5-30 tablet by ity of tablet 00:00: mouth [place] 00 every 6 Medical (six) Branch hours as needed for Pain (scale 4-6). Yes [id number] 1{tbl} Take 1 [facility] vitamin 5-30 tablet by ity of w/FA tablet 00:00: mouth [place] 00 daily. Medical Branch docusate Yes [id number] 240mg Take 1 U nivers calcium 240 5-30 capsule by it y of mg capsule 00:00: mouth once [place] 00 daily as Medical needed for Branch Constipati on. ferrous Yes [id number] 325mg Take 1 Un indra sulfate 325 5-30 tablet by ity of mg (65 mg 00:00: mouth 2 [place] iron) 00 (two) Medical tablet times Branch daily. ibuprofen Yes [id number] 600mg Take 1 [facility] 600 mg 5-30 tablet by ity of tablet 00:00: mouth [place] 00 every 6 Medical (six) Branch hours as needed (Pain). Take with food or milk. docusate Yes [id number] 240mg Take 1 U nivers calcium 240 5-30 capsule by it y of mg capsule 00:00: mouth once [place] 00 daily as Medical needed for Branch Constipati on. ibuprofen Yes [id number] 600mg Take 1 [facility] 600 mg 5-30 tablet by ity of tablet 00:00: mouth [place] 00 every 6 Medical (six) Branch hours as needed for Pain (scale 4-6). Yes [id number] 1{tbl} Take 1 [facility] vitamin 5-30 tablet by ity of w/FA tablet 00:00: mouth [place] 00 daily. Medical Branch docusate Yes [id number] 240mg Take 1 U nivers calcium 240 5-30 capsule by it y of mg capsule 00:00: mouth once [place] 00 daily as Medical needed for Branch Constipati on. ferrous Yes [id number] 325mg Take 1 Un indra sulfate 325 5-30 tablet by ity of mg (65 mg 00:00: mouth 2 [place] iron) 00 (two) Medical tablet times Branch daily. ibuprofen Yes [id number] 600mg Take 1 [facility] 600 mg 5-30 tablet by ity of tablet 00:00: mouth [place] 00 every 6 Medical (six) Branch hours as needed (Pain). Take with food or milk. docusate Yes [id number] 240mg Take 1 U nivers calcium 240 5-30 capsule by it y of mg capsule 00:00: mouth once [place] 00 daily as Medical needed for Branch Constipati on. ibuprofen Yes [id number] 600mg Take 1 [facility] 600 mg 5-30 tablet by ity of tablet 00:00: mouth [place] 00 every 6 Medical (six) Branch hours as needed for Pain (scale 4-6). Yes [id number] 1{tbl} Take 1 [facility] vitamin 5-30 tablet by ity of w/FA tablet 00:00: mouth [place] 00 daily. Medical Branch docusate Yes [id number] 240mg Take 1 U nivers calcium 240 5-30 capsule by it y of mg capsule 00:00: mouth once [place] 00 daily as Medical needed for Branch Constipati on. ferrous Yes [id number] 325mg Take 1 Un indra sulfate 325 5-30 tablet by ity of mg (65 mg 00:00: mouth 2 [place] iron) 00 (two) Medical tablet times Branch daily. acetaminoph 2021- No [id number] 650mg Take 2 [facility] en 325 mg 5-30 05-31 tablets by ity of tablet 00:00: 04:59 mouth [place] 00 :00 every 6 Medical (six) Branch hours as needed for Pain (scale 1-3). acetaminoph 2021- No [id number] 650mg Take 2 [facility] en 325 mg 5-30 05-31 tablets by ity of tablet 00:00: 04:59 mouth [place] 00 :00 every 6 Medical (six) Branch hours as needed for Pain (scale 1-3). acetaminoph 2021- No [id number] 650mg Take 2 [facility] en 325 mg 5-30 05-31 tablets by ity of tablet 00:00: 04:59 mouth [place] 00 :00 every 6 Medical (six) Branch hours as needed for Pain (scale 1-3). acetaminoph 2021- No [id number] 650mg Take 2 [facility] en 325 mg 5-30 05-31 tablets by ity of tablet 00:00: 04:59 mouth [place] 00 :00 every 6 Medical (six) Branch hours as needed for Pain (scale 1-3). acetaminoph 2021- No [id number] 650mg Take 2 [facility] en 325 mg 5-30 05-31 tablets by ity of tablet 00:00: 04:59 mouth [place] 00 :00 every 6 Medical (six) Branch hours as needed for Pain (scale 1-3). acetaminoph 2021- No [id number] 650mg Take 2 [facility] en 325 mg 5-30 05-31 tablets by ity of tablet 00:00: 04:59 mouth [place] 00 :00 every 6 Medical (six) Branch hours as needed for Pain (scale 1-3). acetaminoph 2021- No [id number] 650mg Take 2 [facility] en 325 mg 5-30 05-31 tablets by ity of tablet 00:00: 04:59 mouth [place] 00 :00 every 6 Medical (six) Branch hours as needed for Pain (scale 1-3). acetaminoph 2021- No [id number] 650mg Take 2 [facility] en 325 mg 5-30 05-31 tablets by ity of tablet 00:00: 04:59 mouth [place] 00 :00 every 6 Medical (six) Branch hours as needed for Pain (scale 1-3). acetaminoph 2021- No [id number] 650mg Take 2 [facility] en 325 mg 5-30 05-31 tablets by ity of tablet 00:00: 04:59 mouth [place] 00 :00 every 6 Medical (six) Branch hours as needed for Pain (scale 1-3). acetaminoph 2021- No [id number] 650mg Take 2 [facility] en 325 mg 5-30 05-31 tablets by ity of tablet 00:00: 04:59 mouth [place] 00 :00 every 6 Medical (six) Branch hours as needed for Pain (scale 1-3). acetaminoph 2021- No [id number] 650mg Take 2 [facility] en 325 mg 5-30 05-31 tablets by ity of tablet 00:00: 04:59 mouth [place] 00 :00 every 6 Medical (six) Branch hours as needed for Pain (scale 1-3). acetaminoph 2020-2021- No [id number] 650mg Take 2 [facility] en 325 mg 5-30 05-31 tablets by ity of tablet 00:00: 04:59 mouth [place] 00 :00 every 6 Medical (six) Branch hours as needed for Pain (scale 1-3). acetaminoph 2021- No [id number] 650mg Take 2 [facility] en 325 mg 5-30 05-31 tablets by ity of tablet 00:00: 04:59 mouth [place] 00 :00 every 6 Medical (six) Branch hours as needed for Pain (scale 1-3). acetaminoph 2021- No [id number] 650mg Take 2 [facility] en 325 mg 5-30 05-31 tablets by ity of tablet 00:00: 04:59 mouth [place] 00 :00 every 6 Medical (six) Branch hours as needed for Pain (scale 1-3). acetaminoph 2021- No [id number] 650mg Take 2 [facility] en 325 mg 5-30 05-31 tablets by ity of tablet 00:00: 04:59 mouth [place] 00 :00 every 6 Medical (six) Branch hours as needed for Pain (scale 1-3). bupivacaine Yes PRN, Univer s (preserv 07-15 Starting ity of free) 23:06: [facility] (SENSORCAIN 00 07/15/20 at [facility]) 0.25 1806, Branch % (2.5 Until mg/mL) Discontinu injection ed, Routine, Intra-op bupivacaine 2020- No PRN, Unive rs (preserv 07-15-30 Starting ity of free) 23:06: 21:14 [facility] ([facility] 00 :16 [facility] 0.[facility] 1806, Branch % (2.5 Until Sun mg/mL) 07/16/20 at injection 1614, Routine, Intra-op ibuprofen Yes 600mg 600 mg, Univ ers (IBU) 07-15 Oral, ity of tablet 600 19:22: Q6HPRN, [place] mg 05 Starting Medical [facility] Branch 07/15/20 at 1422, Until Discontinu ed, Routine, Pain (scale 4-6) ibuprofen 2020- No 600mg 600 mg, Uni vers (IBU) 07-15 Oral, ity of tablet 600 19:22: 21:14 Q6HPRN, [place] mg 05 :16 Starting Medical [facility] 07/15/20 at 1422, Until 07/16/20 at 1614, Routine, Pain (scale 4-6) ibuprofen 2020- No 600mg 600 mg, Uni vers (IBU) 07-15 Oral, ity of tablet 600 19:22: 19:25 ONCE, 1 [place] mg 00 :00 dose, [facility] 07/15/20 at Branch 1430, Routine ondansetron 2020- [...] First dose Medi nba 40 mg on [facility] Branch 07/15/20 at 0900, Until Discontinu ed, Routine pantoprazol 2020- No 40mg 40 mg, Uni vers e 07-15 Oral, ity of (PROTONIX) 14:00: 21:14 DAILY, [place] EC tablet 00 :16 First dose Medi nba 40 mg on [facility] 07/15/20 at 0900, Until Discontinu ed, Routine lactated 2020- No 500mL at 999 Unive rs ringers IV 07-15 mL/hr, 500 it y of infusion 08:30: [...] ity of en-caff 07:15: 06:20 ONCE, 1 [place] (ESGIC) 00 :00 dose, Sat Medical 50-325-40 07/15/20 at Bran ch mg tablet 2 0215, tablet Routine [id number]-LR IV 2020- No 1000mL at 125 Uni vers infusion 07-15- mL/hr, IV ity o f 1,000 mL 04:00: 01:39 Infusion, [place] 00 :54 CONTINUOUS Medical , Starting Branch 07/14/20 at 2300, Until 07/15/20 at 2038, Routine Sliding 2020- No Subcutaneo Uni vers Scale 07-15 us, ity of Insulin - 03:58: 01:39 [...] Discontinu ed, Routine, Surgery/Pr ocedure metroNIDAZO Yes [id number] 500mg Take 1 [facility] LE 500 mg 5-23 9109 tablet by ity o f tablet 00:00: mouth 2 [place] 00 (two) Medical times Branch daily. metroNIDAZO 2020- No [id number] 500mg Take 1 [facility] LE 500 mg 5-23 05-30 9109 tablet by ity of tablet 00:00: 00:00 mouth 2 [place] 00 :00 (two) Medical times Branch daily. metroNIDAZO 2020- No [id number] 500mg Take 1 [facility] LE 500 mg 5-23 05-30 9109 tablet by ity of tablet 00:00: 00:00 mouth 2 [place] 00 :00 (two) Medical times Branch daily. glyBURIDE Yes [id number] Take 1 tab [facility] 2.5 mg 5-06 PO AC ity of tablet 00:00: breakfast [place] 00 and 1 tab Medical PO HS with Branch snack pantoprazol Yes [id number] 40mg Take 1 [facility] e 5-06 tablet by ity of (PROTONIX) 00:00: mouth [place] 40 mg EC 00 daily. Medical tablet Branch proMETHazin Yes [id number] 25mg Take 1 [facility] e 25 mg 5-06 tablet by ity of tablet 00:00: mouth [place] 00 every 6 Medical (six) Branch hours as needed for Nausea and Vomiting (N/V). glyBURIDE Yes [id number] Take 1 tab [facility] 2.5 mg 5-06 PO AC ity of tablet 00:00: breakfast [place] 00 and 1 tab Medical PO HS with Branch snack pantoprazol Yes [id number] 40mg Take 1 Univers e 5-06 tablet by ity of (PROTONIX) 00:00: mouth [place] 40 mg EC 00 daily. Medical tablet Branch proMETHazin Yes [id number] 25mg Take 1 [facility] e 25 mg 5-06 tablet by ity of tablet 00:00: mouth [place] 00 every 6 Medical (six) Branch hours as needed for Nausea and Vomiting (N/V). glyBURIDE Yes [id number] Take 1 tab [facility] 2.5 mg 5-06 PO AC ity of tablet 00:00: breakfast [place] 00 and 1 tab Medical PO HS with Branch snack pantoprazol 0 Yes [id number] 40mg Take 1 Univers e 5-06 tablet by ity of (PROTONIX) 00:00: mouth [place] 40 mg EC 00 daily. Medical tablet Branch proMETHazin 0 Yes [id number] 25mg Take 1 [facility] e 25 mg 5-06 tablet by ity of tablet 00:00: mouth [place] 00 every 6 Medical (six) Branch hours as needed for Nausea and Vomiting (N/V). glyBURIDE 2020-0 Yes [id number] Take 1 tab [facility] 2.5 mg 5-06 PO AC ity of tablet 00:00: breakfast [place] 00 and 1 tab Medical PO HS with Branch snack pantoprazol 0 Yes [id number] 40mg Take 1 Univers e 5-06 tablet by ity of (PROTONIX) 00:00: mouth [place] 40 mg EC 00 daily. Medical tablet Branch proMETHazin Yes [id number] 25mg Take 1 [facility] e 25 mg 5-06 tablet by ity of tablet 00:00: mouth [place] 00 every 6 Medical (six) Branch hours as needed for Nausea and Vomiting (N/V). glyBURIDE 0 Yes [id number] Take 1 tab [facility] 2.5 mg 5-06 PO AC ity of tablet 00:00: breakfast [place] 00 and 1 tab Medical PO HS with Branch snack pantoprazol 0 Yes [id number] 40mg Take 1 Univers e 5-06 tablet by ity of (PROTONIX) 00:00: mouth [place] 40 mg EC 00 daily. Medical tablet Branch proMETHazin 0 Yes [id number] 25mg Take 1 [facility] e 25 mg 5-06 tablet by ity of tablet 00:00: mouth [place] 00 every 6 Medical (six) Branch hours as needed for Nausea and Vomiting (N/V). glyBURIDE 2020-0 Yes [id number] Take 1 tab [facility] 2.5 mg 5-06 PO AC ity of tablet 00:00: breakfast [place] 00 and 1 tab Medical PO HS with Branch snack pantoprazol 2020-0 Yes [id number] 40mg Take 1 Univers e 5-06 tablet by ity of (PROTONIX) 00:00: mouth [place] 40 mg EC 00 daily. Medical tablet Branch proMETHazin 0 Yes [id number] 25mg Take 1 [facility] e 25 mg 5-06 tablet by ity of tablet 00:00: mouth [place] 00 every 6 Medical (six) Branch hours as needed for Nausea and Vomiting (N/V). glyBURIDE 0 Yes [id number] Take 1 tab [facility] 2.5 mg 5-06 PO AC ity of tablet 00:00: breakfast [place] 00 and 1 tab Medical PO HS with Branch snack pantoprazol Yes [id number] 40mg Take 1 [facility] e 5-06 tablet by ity of (PROTONIX) 00:00: mouth [place] 40 mg EC 00 daily. Medical tablet Branch proMETHazin Yes [id number] 25mg Take 1 [facility] e 25 mg 5-06 tablet by ity of tablet 00:00: mouth [place] 00 every 6 Medical (six) Branch hours as needed for Nausea and Vomiting (N/V). glyBURIDE Yes [id number] Take 1 tab [facility] 2.5 mg 5-06 PO AC ity of tablet 00:00: breakfast [place] 00 and 1 tab Medical PO HS with Branch snack pantoprazol Yes [id number] 40mg Take 1 [facility] e 5-06 tablet by ity of (PROTONIX) 00:00: mouth [place] 40 mg EC 00 daily. Medical tablet Branch proMETHazin Yes [id number] 25mg Take 1 [facility] e 25 mg 5-06 tablet by ity of tablet 00:00: mouth [place] 00 every 6 Medical (six) Branch hours as needed for Nausea and Vomiting (N/V). glyBURIDE Yes [id number] Take 1 tab [facility] 2.5 mg 5-06 PO AC ity of tablet 00:00: breakfast [place] 00 and 1 tab Medical PO HS with Branch snack pantoprazol Yes [id number] 40mg Take 1 [facility] e 5-06 tablet by ity of (PROTONIX) 00:00: mouth [place] 40 mg EC 00 daily. Medical tablet Branch proMETHazin Yes [id number] 25mg Take 1 [facility] e 25 mg 5-06 tablet by ity of tablet 00:00: mouth [place] 00 every 6 Medical (six) Branch hours as needed for Nausea and Vomiting (N/V). glyBURIDE 0 Yes [id number] Take 1 tab [facility] 2.5 mg 5-06 PO AC ity of tablet 00:00: breakfast [place] 00 and 1 tab Medical PO HS with Branch snack pantoprazol 0 Yes [id number] 40mg Take 1 [facility] e 5-06 tablet by ity of (PROTONIX) 00:00: mouth [place] 40 mg EC 00 daily. Medical tablet Branch proMETHazin 0 Yes [id number] 25mg Take 1 [facility] e 25 mg 5-06 tablet by ity of tablet 00:00: mouth [place] 00 every 6 Medical (six) Branch hours as needed for Nausea and Vomiting (N/V). glyBURIDE 0 Yes [id number] Take 1 tab [facility] 2.5 mg 5-06 PO AC ity of tablet 00:00: breakfast [place] 00 and 1 tab Medical PO HS with Branch snack pantoprazol Yes [id number] 40mg Take 1 Univers e 5-06 tablet by ity of (PROTONIX) 00:00: mouth [place] 40 mg EC 00 daily. Medical tablet Branch proMETHazin Yes [id number] 25mg Take 1 [facility] e 25 mg 5-06 tablet by ity of tablet 00:00: mouth [place] 00 every 6 Medical (six) Branch hours as needed for Nausea and Vomiting (N/V). glyBURIDE Yes [id number] Take 1 tab [facility] 2.5 mg 5-06 PO AC ity of tablet 00:00: breakfast [place] 00 and 1 tab Medical PO HS with Branch snack pantoprazol 0 Yes [id number] 40mg Take 1 Univers e 5-06 tablet by ity of (PROTONIX) 00:00: mouth [place] 40 mg EC 00 daily. Medical tablet Branch proMETHazin 0 Yes [id number] 25mg Take 1 [facility] e 25 mg 5-06 tablet by ity of tablet 00:00: mouth [place] 00 every 6 Medical (six) Branch hours as needed for Nausea and Vomiting (N/V). glyBURIDE 0 Yes [id number] Take 1 tab [facility] 2.5 mg 5-06 PO AC ity of tablet 00:00: breakfast [place] 00 and 1 tab Medical PO HS with Branch snack pantoprazol 0 Yes [id number] 40mg Take 1 Univers e 5-06 tablet by ity of (PROTONIX) 00:00: mouth [place] 40 mg EC 00 daily. Medical tablet Branch proMETHazin Yes [id number] 25mg Take 1 Univers e 25 mg [...] third daily. Medic al tablet trimester Branch proMETHazin Yes Nausea/vomi 25mg Take 1 Univers e 25 mg 5-06 ting in tablet by ity of tablet 00:00: mouth [place] 00 every 6 Medical (six) Branch hours as needed for Nausea and Vomiting (N/V). glyBURIDE 2020- No [id number] Take 1 tab [facility] 2.5 mg 5-06 05-30 PO AC ity of tablet 00:00: 00:00 breakfast [place] 00 :00 and 1 tab Medical PO HS with Branch snack pantoprazol 2020- No [id number] 40mg Take 1 Univers e 5-06 05-30 tablet by ity of (PROTONIX) 00:00: 00:00 mouth [place] 40 mg EC 00 :00 daily. Medical tablet Branch proMETHazin 2020- No [id number] 25mg Take 1 Univers e 25 mg 5-06 05-30 tablet by ity of tablet 00:00: 00:00 mouth [place] 00 :00 every 6 Medical (six) Branch hours as needed for Nausea and Vomiting (N/V). glyBURIDE 2020- No [id number] Take 1 tab [facility] 2.5 mg 5-06 05-30 PO AC ity of tablet 00:00: 00:00 breakfast [place] 00 :00 and 1 tab Medical PO HS with Branch snack pantoprazol 2020- No [id number] 40mg Take 1 Univers e 5-06 05-30 tablet by ity of (PROTONIX) 00:00: 00:00 mouth [place] 40 mg EC 00 :00 daily. Medical tablet Branch proMETHazin 2020- No [id number] 25mg Take 1 Univers e 25 mg [...] mellitus Branc h (GDM) in second trimester Blood-Gluco Yes [id number] Check U nivers se Meter 3-18 blood ity of (ONETOUCH 00:00: glucose 4x [place] ULTRA2 00 dialy Medical METER) Kit Branch Lancets Yes [id number] Check Unive rs (ONETOUCH 3-18 blood ity of ULTRASOFT 00:00: glucose 4x [place] LANCETS) 00 daily Medical Misc Branch blood sugar Yes [id number] Check U nivers diagnostic 3-18 blood ity of (ONETOUCH 00:00: glucose 4x [place] VERIO TEST 00 daily Medical STRIPS) Branch strip Blood-Gluco Yes [id number] Check U nivers se Meter 3-18 blood ity of (ONETOUCH 00:00: glucose 4x [place] ULTRA2 00 dialy Medical METER) Kit Branch Lancets Yes [id number] Check Unive rs (ONETOUCH 3-18 blood ity of ULTRASOFT 00:00: glucose 4x [place] LANCETS) 00 daily Medical Misc Branch blood sugar Yes [id number] Check U nivers diagnostic 3-18 blood ity of (ONETOUCH 00:00: glucose 4x [place] VERIO TEST 00 daily Medical STRIPS) Branch strip Blood-Gluco Yes [id number] Check U nivers se Meter 3-18 blood ity of (ONETOUCH 00:00: glucose 4x [place] ULTRA2 00 dialy Medical METER) Kit Branch Lancets Yes [id number] Check Unive rs (ONETOUCH 3-18 blood ity of ULTRASOFT 00:00: glucose 4x [place] LANCETS) 00 daily Medical Misc Branch blood sugar Yes [id number] Check U nivers diagnostic 3-18 blood ity of (ONETOUCH 00:00: glucose 4x [place] VERIO TEST 00 daily Medical STRIPS) Branch strip Blood-Gluco Yes [id number] Check U nivers se Meter 3-18 blood ity of (ONETOUCH 00:00: glucose 4x [place] ULTRA2 00 dialy Medical METER) Kit Branch Lancets Yes [id number] Check Unive rs (ONETOUCH 3-18 blood ity of ULTRASOFT 00:00: glucose 4x [place] LANCETS) [address] [facility] Branch blood sugar Yes [id number] Check U nivers diagnostic 3-18 blood ity of (ONETOUCH 00:00: glucose 4x [place] VERIO TEST 00 daily Medical STRIPS) Branch strip Blood-Gluco Yes [id number] Check U nivers se Meter 3-18 blood ity of (ONETOUCH 00:00: glucose 4x [place] ULTRA2 00 dialy Medical METER) Kit Branch Lancets Yes [id number] Check Unive rs (ONETOUCH 3-18 blood ity of ULTRASOFT 00:00: glucose 4x [place] LANCETS) [address] [facility] Branch blood sugar Yes [id number] Check U nivers diagnostic 3-18 blood ity of (ONETOUCH 00:00: glucose 4x [place] VERIO TEST 00 daily Medical STRIPS) Branch strip Blood-Gluco Yes [id number] Check U nivers se Meter 3-18 blood ity of (ONETOUCH 00:00: glucose 4x [place] ULTRA2 00 dialy Medical METER) Kit Branch Lancets Yes [id number] Check Unive rs (ONETOUCH 3-18 blood ity of ULTRASOFT 00:00: glucose 4x [place] LANCETS) [address] [facility] Branch blood sugar Yes [id number] Check U nivers diagnostic 3-18 blood ity of (ONETOUCH 00:00: glucose 4x [place] VERIO TEST 00 daily Medical STRIPS) Branch strip Blood-Gluco Yes [id number] Check U nivers se Meter 3-18 blood ity of (ONETOUCH 00:00: glucose 4x [place] ULTRA2 00 dialy Medical METER) Kit Branch Lancets Yes [id number] Check Unive rs (ONETOUCH 3-18 blood ity of ULTRASOFT 00:00: glucose 4x [place] LANCETS) [address] [facility] Branch blood sugar Yes [id number] Check U nivers diagnostic 3-18 blood ity of (ONETOUCH 00:00: glucose 4x [place] VERIO TEST 00 daily Medical STRIPS) Branch strip Blood-Gluco Yes [id number] Check U nivers se Meter 3-18 blood ity of (ONETOUCH 00:00: glucose 4x [place] ULTRA2 00 dialy Medical METER) Kit Branch Lancets Yes [id number] Check Unive rs (ONETOUCH 3-18 blood ity of ULTRASOFT 00:00: glucose 4x [place] LANCETS) [address] [facility] Branch blood sugar Yes [id number] Check U nivers diagnostic 3-18 blood ity of (ONETOUCH 00:00: glucose 4x [place] VERIO TEST 00 daily Medical STRIPS) Branch strip Blood-Gluco Yes [id number] Check U nivers se Meter 3-18 blood ity of (ONETOUCH 00:00: glucose 4x [place] ULTRA2 00 dialy Medical METER) Kit Branch Lancets Yes [id number] Check Unive rs (ONETOUCH 3-18 blood ity of ULTRASOFT 00:00: glucose 4x [place] LANCETS) [address] [facility] Branch blood sugar Yes [id number] Check U nivers diagnostic 3-18 blood ity of (ONETOUCH 00:00: glucose 4x [place] VERIO TEST 00 daily Medical STRIPS) Branch strip Blood-Gluco Yes [id number] Check U nivers se Meter 3-18 blood ity of (ONETOUCH 00:00: glucose 4x [place] ULTRA2 00 dialy Medical METER) Kit Branch Lancets Yes [id number] Check Unive rs (ONETOUCH 3-18 blood ity of ULTRASOFT 00:00: glucose 4x [place] LANCETS) [address] [facility] Branch blood sugar 2021-0 Yes [id number] Check U nivers diagnostic 3-18 blood ity of (ONETOUCH 00:00: glucose 4x [place] VERIO TEST 00 daily Medical STRIPS) Branch strip Blood-Gluco 0 Yes [id number] Check U nivers se Meter 3-18 blood ity of (ONETOUCH 00:00: glucose 4x [place] ULTRA2 00 dialy Medical METER) Kit Branch Lancets Yes [id number] Check Unive rs (ONETOUCH 3-18 blood ity of ULTRASOFT 00:00: glucose 4x [place] LANCETS) [address] [facility] Branch blood sugar 0 Yes [id number] Check U nivers diagnostic 3-18 blood ity of (ONETOUCH 00:00: glucose 4x [place] VERIO TEST 00 daily Medical STRIPS) Branch strip Blood-Gluco Yes [id number] Check U nivers se Meter 3-18 blood ity of (ONETOUCH 00:00: glucose 4x [place] ULTRA2 00 dialy Medical METER) Kit Branch Lancets Yes [id number] Check Unive rs (ONETOUCH 3-18 blood ity of ULTRASOFT 00:00: glucose 4x [place] LANCETS) [address] [facility] Branch blood sugar 0 Yes [id number] Check U nivers diagnostic 3-18 blood ity of (ONETOUCH 00:00: glucose 4x [place] VERIO TEST 00 daily Medical STRIPS) Branch strip Blood-Gluco Yes [id number] Check U nivers se Meter 3-18 blood ity of (ONETOUCH 00:00: glucose 4x [place] ULTRA2 00 dialy Medical METER) Kit Branch Lancets Yes [id number] Check Unive rs (ONETOUCH 3-18 blood ity of ULTRASOFT 00:00: glucose 4x [place] LANCETS) [address] [facility] Branch blood sugar 0 Yes [id number] Check U nivers diagnostic 3-18 blood ity of (ONETOUCH 00:00: glucose 4x [place] VERIO TEST 00 daily Medical STRIPS) Branch strip Blood-Gluco Yes [id number] Check U nivers se Meter 3-18 blood ity of (ONETOUCH 00:00: glucose 4x [place] ULTRA2 00 dialy Medical METER) Kit Branch Lancets Yes [id number] Check Unive rs (ONETOUCH 3-18 blood ity of ULTRASOFT 00:00: glucose 4x [place] LANCETS) [address] [facility] Branch blood sugar Yes [id number] Check U nivers diagnostic 3-18 blood ity of (ONETOUCH 00:00: glucose 4x [place] VERIO TEST 00 daily Medical STRIPS) Branch strip Blood-Gluco Yes [id number] Check U nivers se Meter 3-18 blood ity of (ONETOUCH 00:00: glucose 4x [place] ULTRA2 00 dialy Medical METER) Kit Branch Lancets Yes [id number] Check Unive rs (ONETOUCH 3-18 blood ity of ULTRASOFT 00:00: glucose 4x [place] LANCETS) [address] [facility] Branch blood sugar Yes [id number] Check U nivers diagnostic 3-18 blood ity of (ONETOUCH 00:00: glucose 4x [place] VERIO TEST 00 daily Medical STRIPS) Branch strip Blood-Gluco Yes [id number] Check U nivers se Meter 3-18 blood ity of (ONETOUCH 00:00: glucose 4x [place] ULTRA2 00 dialy Medical METER) Kit Branch Lancets Yes [id number] Check Unive rs (ONETOUCH 3-18 blood ity of ULTRASOFT 00:00: glucose 4x [place] LANCETS) [address] [facility] Branch blood sugar Yes [id number] Check U nivers diagnostic 3-18 blood ity of (ONETOUCH 00:00: glucose 4x [place] VERIO TEST 00 daily Medical STRIPS) Branch strip Blood-Gluco Yes [id number] Check U nivers se Meter 3-18 blood ity of (ONETOUCH 00:00: glucose 4x [place] ULTRA2 00 dialy Medical METER) Kit Branch Lancets Yes [id number] Check Unive rs (ONETOUCH 3-18 blood ity of ULTRASOFT 00:00: glucose 4x [place] LANCETS) [address] [facility] Branch blood sugar Yes [id number] Check U nivers diagnostic 3-18 blood ity of (ONETOUCH 00:00: glucose 4x [place] VERIO TEST 00 daily Medical STRIPS) Branch strip Blood-Gluco Yes [id number] Check U nivers se Meter 3-18 blood ity of (ONETOUCH 00:00: glucose 4x [place] ULTRA2 00 dialy Medical METER) Kit Branch Lancets Yes [id number] Check Unive rs (ONETOUCH 3-18 blood ity of ULTRASOFT 00:00: glucose 4x [place] LANCETS) 00 daily Medical Misc Branch blood sugar 0 Yes [id number] Check U nivers diagnostic 3-18 blood ity of (ONETOUCH 00:00: glucose 4x [place] VERIO TEST 00 daily Medical STRIPS) Branch strip Blood-Gluco Yes [id number] Check U nivers se Meter 3-18 blood ity of (ONETOUCH 00:00: glucose 4x [place] ULTRA2 00 dialy Medical METER) Kit Branch Lancets Yes [id number] Check Unive rs (ONETOUCH 3-18 blood ity of ULTRASOFT 00:00: glucose 4x [place] LANCETS) 00 daily Medical Misc Branch blood sugar 0 Yes [id number] Check U nivers diagnostic 3-18 blood ity of (ONETOUCH 00:00: glucose 4x [place] VERIO TEST 00 daily Medical STRIPS) Branch strip Blood-Gluco Yes [id number] Check U nivers se Meter 3-18 blood ity of (ONETOUCH 00:00: glucose 4x [place] ULTRA2 00 dialy Medical METER) Kit Branch Lancets Yes [id number] Check Unive rs (ONETOUCH 3-18 blood ity of ULTRASOFT 00:00: glucose 4x [place] LANCETS) 00 daily Medical Misc Branch blood sugar 0 Yes [id number] Check U nivers diagnostic 3-18 blood ity of (ONETOUCH 00:00: glucose 4x [place] VERIO TEST 00 daily Medical STRIPS) Branch strip Blood-Gluco Yes [id number] Check U nivers se Meter 3-18 blood ity of (ONETOUCH 00:00: glucose 4x [place] ULTRA2 00 dialy Medical METER) Kit Branch Lancets Yes [id number] Check Unive rs (ONETOUCH 3-18 blood ity of ULTRASOFT 00:00: glucose 4x [place] LANCETS) 00 daily Medical Misc Branch blood sugar Yes [id number] Check U nivers diagnostic 3-18 blood ity of (ONETOUCH 00:00: glucose 4x [place] VERIO TEST 00 daily Medical STRIPS) Branch strip Blood-Gluco Yes [id number] Check U nivers se Meter 3-18 blood ity of (ONETOUCH 00:00: glucose 4x [place] ULTRA2 00 dialy Medical METER) Kit Branch Lancets Yes [id number] Check Unive rs (ONETOUCH 3-18 blood ity of ULTRASOFT 00:00: glucose 4x [place] LANCETS) 00 daily Medical Mis Branch blood sugar Yes [id number] Check U nivers diagnostic 3-18 blood ity of (ONETOUCH 00:00: glucose 4x [place] VERIO TEST 00 daily Medical STRIPS) Branch strip Blood-Gluco Yes [id number] Check U nivers se Meter 3-18 blood ity of (ONETOUCH 00:00: glucose 4x [place] ULTRA2 00 dialy Medical METER) Kit Branch Lancets Yes [id number] Check Unive rs (ONETOUCH 3-18 blood ity of ULTRASOFT 00:00: glucose 4x [place] LANCETS) [address] [facility] Branch blood sugar Yes [id number] Check U nivers diagnostic 3-18 blood ity of (ONETOUCH 00:00: glucose 4x [place] VERIO TEST 00 daily Medical STRIPS) Branch strip Blood-Gluco Yes [id number] Check U nivers se Meter 3-18 blood ity of (ONETOUCH 00:00: glucose 4x [place] ULTRA2 00 dialy Medical METER) Kit Branch Lancets Yes [id number] Check Unive rs (ONETOUCH 3-18 blood ity of ULTRASOFT 00:00: glucose 4x [place] LANCETS) 00 daily Medical Misc Branch Lancets Yes Diet Check [facility] (ONETOUCH 3-18 controlled blood ity of ULTRASOFT 00:00: gestational glucose 4x [place] LANCETS) [address] [facility] mellitus Branch (GDM) in second trimester blood sugar Yes [id number] Check U nivers diagnostic 3-18 blood ity of (ONETOUCH 00:00: glucose 4x [place] VERIO TEST 00 daily Medical STRIPS) Branch strip Blood-Gluco Yes [id number] Check U nivers se Meter 3-18 blood ity of (ONETOUCH 00:00: glucose 4x [place] ULTRA2 00 dialy Medical METER) Kit Branch Lancets Yes [id number] Check Unive rs (ONETOUCH 3-18 blood ity of ULTRASOFT 00:00: glucose 4x [place] LANCETS) [address] [facility] Branch blood sugar Yes [id number] Check U nivers diagnostic 3-18 blood ity of (ONETOUCH 00:00: glucose 4x [place] VERIO TEST 00 daily Medical STRIPS) Branch strip Blood-Gluco Yes [id number] Check U nivers se Meter 3-18 blood ity of (ONETOUCH 00:00: glucose 4x [place] ULTRA2 00 dialy Medical METER) Kit Branch Lancets Yes [id number] Check Unive rs (ONETOUCH 3-18 blood ity of ULTRASOFT 00:00: glucose 4x [place] LANCETS) [address] [facility] Branch blood sugar Yes [id number] Check U nivers diagnostic 3-18 blood ity of (ONETOUCH 00:00: glucose 4x [place] VERIO TEST 00 daily Medical STRIPS) Branch strip Blood-Gluco Yes [id number] Check U nivers se Meter 3-18 blood ity of (ONETOUCH 00:00: glucose 4x [place] ULTRA2 00 dialy Medical METER) Kit Branch Lancets Yes [id number] Check Unive rs (ONETOUCH 3-18 blood ity of ULTRASOFT 00:00: glucose 4x [place] LANCETS) [address] [facility] Branch blood sugar Yes [id number] Check U nivers diagnostic 3-18 blood ity of (ONETOUCH 00:00: glucose 4x [place] VERIO TEST 00 daily Medical STRIPS) Branch strip Blood-Gluco Yes [id number] Check U nivers se Meter 3-18 blood ity of (ONETOUCH 00:00: glucose 4x [place] ULTRA2 00 dialy Medical METER) Kit Branch Lancets Yes [id number] Check Unive rs (ONETOUCH 3-18 blood ity of ULTRASOFT 00:00: glucose 4x [place] LANCETS) 00 daily Medical Misc Branch blood sugar Yes [id number] Check U nivers diagnostic 3-18 blood ity of (ONETOUCH 00:00: glucose 4x [place] VERIO TEST 00 daily Medical STRIPS) Branch strip blood sugar Yes Diet Check Unive rs diagnostic 3-18 controlled blood it y of (ONETOUCH 00:00: gestational glucose 4x [place] VERIO TEST 00 diabetes daily Medi nba STRIPS) mellitus Branch strip (GDM) in second trimester Blood-Gluco 2020- No [id number] Check [facility] se Meter 3-18 05-30 blood ity of (ONETOUCH 00:00: 00:00 glucose 4x [place] ULTRA2 00 :00 dialy Medical METER) Kit Branch Lancets 2020- No [id number] Check Univ ers (ONETOUCH 3-18 05-30 blood ity of ULTRASOFT 00:00: 00:00 glucose 4x [place] LANCETS) 00 :00 daily Medical Misc Branch blood sugar 2020- No [id number] Check [facility] diagnostic 3-18 05-30 blood ity of (ONETOUCH 00:00: 00:00 glucose 4x [place] VERIO TEST 00 :00 daily Medical STRIPS) Branch strip Blood-Gluco 2020- No [id number] Check Univers se Meter 3-18 05-30 blood ity of (ONETOUCH 00:00: 00:00 glucose 4x [place] ULTRA2 00 :00 dialy Medical METER) Kit Branch Lancets 2020- No [id number] Check Univ ers (ONETOUCH 3-18 05-30 blood ity of ULTRASOFT 00:00: 00:00 glucose 4x [place] LANCETS) 00 :00 daily Medical Misc Branch blood sugar 2020- No [id number] Check [facility] diagnostic 318 05-30 blood ity of (ONETOUCH 00:00: 00:00 glucose 4x [place] VERIO TEST 00 :00 daily Medical STRIPS) Branch strip ascorbic Yes [id number] 500mg Take 1 U nivers acid, 3-10 tablet by ity of vitamin C, 00:00: mouth 3 [place] 500 mg 00 (three) Medical tablet times Branch daily. ferrous Yes [id number] 325mg Take 1 Un indra sulfate 325 3-10 tablet by ity of mg (65 mg 00:00: mouth 2 [place] iron) 00 (two) Medical tablet times Branch daily. ascorbic Yes [id number] 500mg Take 1 U nivers acid, 3-10 tablet by ity of vitamin C, 00:00: mouth 3 [place] 500 mg 00 (three) Medical tablet times Branch daily. ferrous Yes [id number] 325mg Take 1 Un indra sulfate 325 3-10 tablet by ity of mg (65 mg 00:00: mouth 2 [place] iron) 00 (two) Medical tablet times Branch daily. ascorbic Yes [id number] 500mg Take 1 U nivers acid, 3-10 tablet by ity of vitamin C, 00:00: mouth 3 [place] 500 mg 00 (three) Medical tablet times Branch daily. ferrous Yes [id number] 325mg Take 1 Un indra sulfate 325 3-10 tablet by ity of mg (65 mg 00:00: mouth 2 [place] iron) 00 (two) Medical tablet times Branch daily. ascorbic Yes [id number] 500mg Take 1 U nivers acid, 3-10 tablet by ity of vitamin C, 00:00: mouth 3 [place] 500 mg 00 (three) Medical tablet times Branch daily. ferrous Yes [id number] 325mg Take 1 Un indra sulfate 325 3-10 tablet by ity of mg (65 mg 00:00: mouth 2 [place] iron) 00 (two) Medical tablet times Branch daily. ascorbic Yes [id number] 500mg Take 1 U nivers acid, 3-10 tablet by ity of vitamin C, 00:00: mouth 3 [place] 500 mg 00 (three) Medical tablet times Branch daily. ferrous Yes [id number] 325mg Take 1 Un indra sulfate 325 3-10 tablet by ity of mg (65 mg 00:00: mouth 2 [place] iron) 00 (two) Medical tablet times Branch daily. ascorbic Yes [id number] 500mg Take 1 U nivers acid, 3-10 tablet by ity of vitamin C, 00:00: mouth 3 [place] 500 mg 00 (three) Medical tablet times Branch daily. ferrous Yes [id number] 325mg Take 1 Un indra sulfate 325 3-10 tablet by ity of mg (65 mg 00:00: mouth 2 [place] iron) 00 (two) Medical tablet times Branch daily. ascorbic Yes [id number] 500mg Take 1 U nivers acid, 3-10 tablet by ity of vitamin C, 00:00: mouth 3 [place] 500 mg 00 (three) Medical tablet times Branch daily. ferrous Yes [id number] 325mg Take 1 Un indra sulfate 325 3-10 tablet by ity of mg (65 mg 00:00: mouth 2 [place] iron) 00 (two) Medical tablet times Branch daily. ascorbic Yes [id number] 500mg Take 1 U nivers acid, 3-10 tablet by ity of vitamin C, 00:00: mouth 3 [place] 500 mg 00 (three) Medical tablet times Branch daily. ferrous Yes [id number] 325mg Take 1 Un indra sulfate 325 3-10 tablet by ity of mg (65 mg 00:00: mouth 2 [place] iron) 00 (two) Medical tablet times Branch daily. ascorbic Yes [id number] 500mg Take 1 U nivers acid, 3-10 tablet by ity of vitamin C, 00:00: mouth 3 [place] 500 mg 00 (three) Medical tablet times Branch daily. ferrous Yes [id number] 325mg Take 1 Un indra sulfate 325 3-10 tablet by ity of mg (65 mg 00:00: mouth 2 [place] iron) 00 (two) Medical tablet times Branch daily. ascorbic Yes [id number] 500mg Take 1 U nivers acid, 3-10 tablet by ity of vitamin C, 00:00: mouth 3 [place] 500 mg 00 (three) Medical tablet times Branch daily. ferrous Yes [id number] 325mg Take 1 Un indra sulfate 325 3-10 tablet by ity of mg (65 mg 00:00: mouth 2 [place] iron) 00 (two) Medical tablet times Branch daily. ascorbic Yes [id number] 500mg Take 1 U nivers acid, 3-10 tablet by ity of vitamin C, 00:00: mouth 3 [place] 500 mg 00 (three) Medical tablet times Branch daily. ferrous Yes [id number] 325mg Take 1 Un indra sulfate 325 3-10 tablet by ity of mg (65 mg 00:00: mouth 2 [place] iron) 00 (two) Medical tablet times Branch daily. ascorbic Yes [id number] 500mg Take 1 U nivers acid, 3-10 tablet by ity of vitamin C, 00:00: mouth 3 [place] 500 mg 00 (three) Medical tablet times Branch daily. ferrous Yes [id number] 325mg Take 1 Un indra sulfate 325 3-10 tablet by ity of mg (65 mg 00:00: mouth 2 [place] iron) 00 (two) Medical tablet times Branch daily. ascorbic Yes [id number] 500mg Take 1 U nivers acid, 3-10 tablet by ity of vitamin C, 00:00: mouth 3 [place] 500 mg 00 (three) Medical tablet times Branch daily. ferrous Yes [id number] 325mg Take 1 Un indra sulfate 325 3-10 tablet by ity of mg (65 mg 00:00: mouth 2 [place] iron) 00 (two) Medical tablet times Branch daily. ascorbic Yes [id number] 500mg Take 1 U nivers acid, 3-10 tablet by ity of vitamin C, 00:00: mouth 3 [place] 500 mg 00 (three) Medical tablet times Branch daily. ferrous Yes [id number] 325mg Take 1 Un indra sulfate 325 3-10 tablet by ity of mg (65 mg 00:00: mouth 2 [place] iron) 00 (two) Medical tablet times Branch daily. ascorbic Yes [id number] 500mg Take 1 U nivers acid, 3-10 tablet by ity of vitamin C, 00:00: mouth 3 [place] 500 mg 00 (three) Medical tablet times Branch daily. ferrous Yes [id number] 325mg Take 1 Un indra sulfate 325 3-10 tablet by ity of mg (65 mg 00:00: mouth 2 [place] iron) 00 (two) Medical tablet times Branch daily. ascorbic Yes [id number] 500mg Take 1 U nivers acid, 3-10 tablet by ity of vitamin C, 00:00: mouth 3 [place] 500 mg 00 (three) Medical tablet times Branch daily. ferrous Yes [id number] 325mg Take 1 Un indra sulfate 325 3-10 tablet by ity of mg (65 mg 00:00: mouth 2 [place] iron) 00 (two) Medical tablet times Branch daily. ascorbic Yes [id number] 500mg Take 1 U nivers acid, 3-10 tablet by ity of vitamin C, 00:00: mouth 3 [place] 500 mg 00 (three) Medical tablet times Branch daily. ferrous Yes [id number] 325mg Take 1 Un indra sulfate 325 3-10 tablet by ity of mg (65 mg 00:00: mouth 2 [place] iron) 00 (two) Medical tablet times Branch daily. ascorbic Yes [id number] 500mg Take 1 U nivers acid, 3-10 tablet by ity of vitamin C, 00:00: mouth 3 [place] 500 mg 00 (three) Medical tablet times Branch daily. ferrous Yes [id number] 325mg Take 1 Un indra sulfate 325 3-10 tablet by ity of mg (65 mg 00:00: mouth 2 [place] iron) 00 (two) Medical tablet times Branch daily. ascorbic Yes [id number] 500mg Take 1 U nivers acid, 3-10 tablet by ity of vitamin C, 00:00: mouth 3 [place] 500 mg 00 (three) Medical tablet times Branch daily. ferrous Yes [id number] 325mg Take 1 Un indra sulfate 325 3-10 tablet by ity of mg (65 mg 00:00: mouth 2 [place] iron) 00 (two) Medical tablet times Branch daily. ascorbic Yes [id number] 500mg Take 1 U nivers acid, 3-10 tablet by ity of vitamin C, 00:00: mouth 3 [place] 500 mg 00 (three) Medical tablet times Branch daily. ferrous Yes [id number] 325mg Take 1 Un indra sulfate 325 3-10 tablet by ity of mg (65 mg 00:00: mouth 2 [place] iron) 00 (two) Medical tablet times Branch daily. ascorbic Yes [id number] 500mg Take 1 U nivers acid, 3-10 tablet by ity of vitamin C, 00:00: mouth 3 [place] 500 mg 00 (three) Medical tablet times Branch daily. ferrous Yes [id number] 325mg Take 1 Un indra sulfate 325 3-10 tablet by ity of mg (65 mg 00:00: mouth 2 [place] iron) 00 (two) Medical tablet times Branch daily. ascorbic Yes [id number] 500mg Take 1 U nivers acid, 3-10 tablet by ity of vitamin C, 00:00: mouth 3 [place] 500 mg 00 (three) Medical tablet times Branch daily. ferrous Yes [id number] 325mg Take 1 Un indra sulfate 325 3-10 tablet by ity of mg (65 mg 00:00: mouth 2 [place] iron) 00 (two) Medical tablet times Branch daily. ascorbic Yes [id number] 500mg Take 1 U nivers acid, 3-10 tablet by ity of vitamin C, 00:00: mouth 3 [place] 500 mg 00 (three) Medical tablet times Branch daily. ferrous Yes [id number] 325mg Take 1 Un indra sulfate 325 3-10 tablet by ity of mg (65 mg 00:00: mouth 2 [place] iron) 00 (two) Medical tablet times Branch daily. ascorbic Yes [id number] 500mg Take 1 U nivers acid, 3-10 tablet by ity of vitamin C, 00:00: mouth 3 [place] 500 mg 00 (three) Medical tablet times Branch daily. ferrous Yes [id number] 325mg Take 1 Un indra sulfate 325 3-10 tablet by ity of mg (65 mg 00:00: mouth 2 [place] iron) 00 (two) Medical tablet times Branch daily. ascorbic Yes [id number] 500mg Take 1 U nivers acid, 3-10 tablet by ity of vitamin C, 00:00: mouth 3 [place] 500 mg 00 (three) Medical tablet times Branch daily. ferrous Yes [id number] 325mg Take 1 Un indra sulfate 325 3-10 tablet by ity of mg (65 mg 00:00: mouth 2 [place] iron) 00 (two) Medical tablet times Branch daily. ascorbic Yes [id number] 500mg Take 1 U nivers acid, 3-10 tablet by ity of vitamin C, 00:00: mouth 3 [place] 500 mg 00 (three) Medical tablet times Branch daily. ferrous Yes [id number] 325mg Take 1 Un indra sulfate 325 3-10 tablet by ity of mg (65 mg 00:00: mouth 2 [place] iron) 00 (two) Medical tablet times Branch daily. ascorbic Yes [id number] 500mg Take 1 U nivers acid, 3-10 tablet by ity of vitamin C, 00:00: mouth 3 [place] 500 mg 00 (three) Medical tablet times Branch daily. ferrous Yes [id number] 325mg Take 1 Un indra sulfate 325 3-10 tablet by ity of mg (65 mg 00:00: mouth 2 [place] iron) 00 (two) Medical tablet times Branch daily. ascorbic Yes [id number] 500mg Take 1 U nivers acid, 3-10 tablet by ity of vitamin C, 00:00: mouth 3 [place] 500 mg 00 (three) Medical tablet times Branch daily. ferrous Yes [id number] 325mg Take 1 Un indra sulfate 325 3-10 tablet by ity of mg (65 mg 00:00: mouth 2 [place] iron) 00 (two) Medical tablet times Branch daily. ascorbic Yes [id number] 500mg Take 1 U nivers acid, 3-10 tablet by ity of vitamin C, 00:00: mouth 3 [place] 500 mg 00 (three) Medical tablet times Branch daily. ferrous Yes [id number] 325mg Take 1 Un indra sulfate 325 3-10 tablet by ity of mg (65 mg 00:00: mouth 2 [place] iron) 00 (two) Medical tablet times Branch daily. ascorbic Yes [id number] 500mg Take 1 U nivers acid, 3-10 tablet by ity of vitamin C, 00:00: mouth 3 [place] 500 mg 00 (three) Medical tablet times Branch daily. ferrous Yes [id number] 325mg Take 1 Un indra sulfate 325 3-10 tablet by ity of mg (65 mg 00:00: mouth 2 [place] iron) 00 (two) Medical tablet times Branch daily. ascorbic Yes [id number] 500mg Take 1 U nivers acid, 3-10 tablet by ity of vitamin C, 00:00: mouth 3 [place] 500 mg 00 (three) Medical tablet times Branch daily. ferrous Yes [id number] 325mg Take 1 Un indra sulfate 325 3-10 tablet by ity of mg (65 mg 00:00: mouth 2 [place] iron) 00 (two) Medical tablet times Branch daily. ascorbic Yes Anemia of 500mg Take 1 U nivers acid, 3-10 mother in tablet by ity of vitamin C, 00:00: , mouth 3 [place] 500 mg 00 antepartum (three) Medi nba tablet times Branch daily. ferrous Yes Anemia of 325mg Take 1 Un indra sulfate 325 3-10 mother in tablet by ity of mg (65 mg 00:00: , mouth 2 [place] iron) 00 antepartum (two) Medical tablet times Branch daily. ascorbic 2020- No [id number] 500mg Take 1 [facility] acid, 3-10 05-30 tablet by ity of vitamin C, 00:00: 00:00 mouth 3 [place] 500 mg 00 :00 (three) Medical tablet times Branch daily. ferrous 2020- No [id number] 325mg Take 1 U nivers sulfate 325 3-10 05-30 tablet by it y of mg (65 mg 00:00: 00:00 mouth 2 [place] iron) 00 :00 (two) Medical tablet times Branch daily. ascorbic 2020- No [id number] 500mg Take 1 [facility] acid, 3-10 05-30 tablet by ity of vitamin C, 00:00: 00:00 mouth 3 [place] 500 mg 00 :00 (three) Medical tablet times Branch daily. ferrous 2020- No [id number] 325mg Take 1 U nivers sulfate 325 3-10 05-30 tablet by it y of mg (65 mg 00:00: 00:00 mouth 2 [place] iron) 00 :00 (two) Medical tablet times Branch daily. ferrous Yes [id number] 325mg Take 1 Un indra sulfate 325 3-05 tablet by ity of mg (65 mg 00:00: mouth 2 [place] iron) 00 (two) Medical tablet times Branch daily. ascorbic Yes [id number] 500mg Take 1 U nivers acid, 3-05 tablet by ity of vitamin C, 00:00: mouth 3 [place] 500 mg 00 (three) Medical tablet times Branch daily. ferrous Yes [id number] 325mg Take 1 Un indra sulfate 325 3-05 tablet by ity of mg (65 mg 00:00: mouth 2 [place] iron) 00 (two) Medical tablet times Branch daily. ascorbic Yes [id number] 500mg Take 1 U nivers acid, 3-05 tablet by ity of vitamin C, 00:00: mouth 3 [place] 500 mg 00 (three) Medical tablet times Branch daily. ferrous Yes [id number] 325mg Take 1 Un indra sulfate 325 3-05 tablet by ity of mg (65 mg 00:00: mouth 2 [place] iron) 00 (two) Medical tablet times Branch daily. ascorbic Yes [id number] 500mg Take 1 U nivers acid, 3-05 tablet by ity of vitamin C, 00:00: mouth 3 [place] 500 mg 00 (three) Medical tablet times Branch daily. ferrous Yes [id number] 325mg Take 1 Un inrda sulfate 325 3-05 tablet by ity of mg (65 mg 00:00: mouth 2 [place] iron) 00 (two) Medical tablet times Branch daily. ascorbic Yes [id number] 500mg Take 1 U nivers acid, 3-05 tablet by ity of vitamin C, 00:00: mouth 3 [place] 500 mg 00 (three) Medical tablet times Branch daily. ferrous Yes [id number] 325mg Take 1 Un indra sulfate 325 3-05 tablet by ity of mg (65 mg 00:00: mouth 2 [place] iron) 00 (two) Medical tablet times Branch daily. ascorbic Yes [id number] 500mg Take 1 U nivers acid, 3-05 tablet by ity of vitamin C, 00:00: mouth 3 [place] 500 mg 00 (three) Medical tablet times Branch daily. ferrous Yes [id number] 325mg Take 1 Un indra sulfate 325 3-05 tablet by ity of mg (65 mg 00:00: mouth 2 [place] iron) 00 (two) Medical tablet times Branch daily. ascorbic Yes [id number] 500mg Take 1 U nivers acid, 3-05 tablet by ity of vitamin C, 00:00: mouth 3 [place] 500 mg 00 (three) Medical tablet times Branch daily. ferrous Yes [id number] 325mg Take 1 Un indra sulfate 325 3-05 tablet by ity of mg (65 mg 00:00: mouth 2 [place] iron) 00 (two) Medical tablet times Branch daily. ascorbic Yes [id number] 500mg Take 1 U nivers acid, 3-05 tablet by ity of vitamin C, 00:00: mouth 3 [place] 500 mg 00 (three) Medical tablet times Branch daily. ferrous Yes [id number] 325mg Take 1 Un indra sulfate 325 3-05 tablet by ity of mg (65 mg 00:00: mouth 2 [place] iron) 00 (two) Medical tablet times Branch daily. ascorbic Yes [id number] 500mg Take 1 U nivers acid, 3-05 tablet by ity of vitamin C, 00:00: mouth 3 [place] 500 mg 00 (three) Medical tablet times Branch daily. ferrous Yes [id number] 325mg Take 1 Un indra sulfate 325 3-05 tablet by ity of mg (65 mg 00:00: mouth 2 [place] iron) 00 (two) Medical tablet times Branch daily. ascorbic Yes [id number] 500mg Take 1 U nivers acid, 3-05 tablet by ity of vitamin C, 00:00: mouth 3 [place] 500 mg 00 (three) Medical tablet times Branch daily. ferrous Yes [id number] 325mg Take 1 Un indra sulfate 325 3-05 tablet by ity of mg (65 mg 00:00: mouth 2 [place] iron) 00 (two) Medical tablet times Branch daily. ascorbic Yes [id number] 500mg Take 1 U nivers acid, 3-05 tablet by ity of vitamin C, 00:00: mouth 3 [place] 500 mg 00 (three) Medical tablet times Branch daily. ferrous Yes [id number] 325mg Take 1 Un indra sulfate 325 3-05 tablet by ity of mg (65 mg 00:00: mouth 2 [place] iron) 00 (two) Medical tablet times Branch daily. ascorbic Yes [id number] 500mg Take 1 U nivers acid, 3-05 tablet by ity of vitamin C, 00:00: mouth 3 [place] 500 mg 00 (three) Medical tablet times Branch daily. ferrous Yes [id number] 325mg Take 1 Un indra sulfate 325 3-05 tablet by ity of mg (65 mg 00:00: mouth 2 [place] iron) 00 (two) Medical tablet times Branch daily. ascorbic Yes [id number] 500mg Take 1 U nivers acid, 3-05 tablet by ity of vitamin C, 00:00: mouth 3 [place] 500 mg 00 (three) Medical tablet times Branch daily. ferrous Yes [id number] 325mg Take 1 Un indra sulfate 325 3-05 tablet by ity of mg (65 mg 00:00: mouth 2 [place] iron) 00 (two) Medical tablet times Branch daily. ascorbic Yes [id number] 500mg Take 1 U nivers acid, 3-05 tablet by ity of vitamin C, 00:00: mouth 3 [place] 500 mg 00 (three) Medical tablet times Branch daily. ferrous Yes [id number] 325mg Take 1 Un indra sulfate 325 3-05 tablet by ity of mg (65 mg 00:00: mouth 2 [place] iron) 00 (two) Medical tablet times Branch daily. ascorbic Yes [id number] 500mg Take 1 U nivers acid, 3-05 tablet by ity of vitamin C, 00:00: mouth 3 [place] 500 mg 00 (three) Medical tablet times Branch daily. ferrous Yes [id number] 325mg Take 1 Un indra sulfate 325 3-05 tablet by ity of mg (65 mg 00:00: mouth 2 [place] iron) 00 (two) Medical tablet times Branch daily. ascorbic Yes [id number] 500mg Take 1 U nivers acid, 3-05 tablet by ity of vitamin C, 00:00: mouth 3 [place] 500 mg 00 (three) Medical tablet times Branch daily. ferrous Yes [id number] 325mg Take 1 Un indra sulfate 325 3-05 tablet by ity of mg (65 mg 00:00: mouth 2 [place] iron) 00 (two) Medical tablet times Branch daily. ascorbic Yes [id number] 500mg Take 1 U nivers acid, 3-05 tablet by ity of vitamin C, 00:00: mouth 3 [place] 500 mg 00 (three) Medical tablet times Branch daily. ferrous Yes [id number] 325mg Take 1 Un indra sulfate 325 3-05 tablet by ity of mg (65 mg 00:00: mouth 2 [place] iron) 00 (two) Medical tablet times Branch daily. ascorbic Yes [id number] 500mg Take 1 U nivers acid, 3-05 tablet by ity of vitamin C, 00:00: mouth 3 [place] 500 mg 00 (three) Medical tablet times Branch daily. ferrous Yes [id number] 325mg Take 1 Un indra sulfate 325 3-05 tablet by ity of mg (65 mg 00:00: mouth 2 [place] iron) 00 (two) Medical tablet times Branch daily. ascorbic Yes [id number] 500mg Take 1 U nivers acid, 3-05 tablet by ity of vitamin C, 00:00: mouth 3 [place] 500 mg 00 (three) Medical tablet times Branch daily. ferrous Yes [id number] 325mg Take 1 Un indra sulfate 325 3-05 tablet by ity of mg (65 mg 00:00: mouth 2 [place] iron) 00 (two) Medical tablet times Branch daily. ascorbic Yes [id number] 500mg Take 1 U nivers acid, 3-05 tablet by ity of vitamin C, 00:00: mouth 3 [place] 500 mg 00 (three) Medical tablet times Branch daily. ferrous Yes [id number] 325mg Take 1 Un indra sulfate 325 3-05 tablet by ity of mg (65 mg 00:00: mouth 2 [place] iron) 00 (two) Medical tablet times Branch daily. ascorbic Yes [id number] 500mg Take 1 U nivers acid, 3-05 tablet by [facility] vitamin C, 00:00: mouth 3 [place] 500 mg 00 (three) Medical tablet times Branch daily. ferrous Yes [id number] 325mg Take 1 Un indra sulfate 325 3-05 tablet by [facility] of mg (65 mg 00:00: mouth 2 [place] iron) 00 (two) Medical tablet times Branch daily. ascorbic Yes [id number] 500mg Take 1 [facility] nivers acid, 3-05 tablet by [facility] vitamin C, 00:00: mouth 3 [place] 500 mg 00 (three) Medical tablet times Branch daily. ferrous Yes [id number] 325mg Take 1 Un indra sulfate 325 3-05 tablet by [facility] of mg (65 mg 00:00: mouth 2 [place] iron) 00 (two) Medical tablet times Branch daily. ascorbic Yes [id number] 500mg Take 1 U nivers acid, 3-05 tablet by [facility] vitamin C, 00:00: mouth 3 [place] 500 mg 00 (three) Medical tablet times Branch daily. ferrous Yes [id number] 325mg Take 1 Un indra sulfate 325 3-05 tablet by [facility] of mg (65 mg 00:00: mouth 2 [place] iron) 00 (two) Medical tablet times Branch daily. ascorbic Yes [id number] 500mg Take 1 U nivers acid, 3-05 tablet by [facility] vitamin C, 00:00: mouth 3 [place] 500 mg 00 (three) Medical tablet times Branch daily. ferrous Yes [id number] 325mg Take 1 Un indra sulfate 325 3-05 tablet by [facility] of mg (65 mg 00:00: mouth 2 [place] iron) 00 (two) Medical tablet times Branch daily. ascorbic Yes [id number] 500mg Take 1 U nivers acid, 3-05 tablet by [facility] vitamin C, 00:00: mouth 3 [place] 500 mg 00 (three) Medical tablet times Branch daily. ferrous Yes [id number] 325mg Take 1 Un indra sulfate 325 3-05 tablet by [facility] of mg (65 mg 00:00: mouth 2 [place] iron) 00 (two) Medical tablet times Branch daily. ascorbic Yes [id number] 500mg Take 1 U nivers acid, 3-05 tablet by [facility] vitamin C, 00:00: mouth 3 [place] 500 mg 00 (three) Medical tablet times Branch daily. ferrous Yes [id number] 325mg Take 1 Un indra sulfate 325 3-05 tablet by [facility] of mg (65 mg 00:00: mouth 2 [place] iron) 00 (two) Medical tablet times Branch daily. ascorbic Yes [id number] 500mg Take 1 U nivers acid, 3-05 tablet by [facility] vitamin C, 00:00: mouth 3 [place] 500 mg 00 (three) Medical tablet times Branch daily. ferrous Yes [id number] 325mg Take 1 Un indra sulfate 325 3-05 tablet by [facility] of mg (65 mg 00:00: mouth 2 [place] iron) 00 (two) Medical tablet times Branch daily. ascorbic Yes [id number] 500mg Take 1 U nivers acid, 3-05 tablet by [facility] vitamin C, 00:00: mouth 3 [place] 500 mg 00 (three) Medical tablet times Branch daily. ferrous Yes [id number] 325mg Take 1 Un indra sulfate 325 3-05 tablet by [facility] of mg (65 mg 00:00: mouth 2 [place] iron) 00 (two) Medical tablet times Branch daily. ascorbic Yes [id number] 500mg Take 1 U nivers acid, 3-05 tablet by [facility] vitamin C, 00:00: mouth 3 [place] 500 mg 00 (three) Medical tablet times Branch daily. ferrous Yes [id number] 325mg Take 1 Un indra sulfate 325 3-05 tablet by [facility] of mg (65 mg 00:00: mouth 2 [place] iron) 00 (two) Medical tablet times Branch daily. ascorbic Yes [id number] 500mg Take 1 U nivers acid, 3-05 tablet by [facility] vitamin C, 00:00: mouth 3 [place] 500 mg 00 (three) Medical tablet times Branch daily. ferrous Yes [id number] 325mg Take 1 Un indra sulfate 325 3-05 tablet by [facility]y of mg (65 mg 00:00: mouth 2 [place] iron) 00 (two) Medical tablet times Branch daily. ascorbic Yes [id number] 500mg Take 1 U nivers acid, 3-05 tablet by [facility] vitamin C, 00:00: mouth 3 [place] 500 mg 00 (three) Medical tablet times Branch daily. ferrous Yes [id number] 325mg Take 1 Un indra sulfate 325 3-05 tablet by [facility]y of mg (65 mg 00:00: mouth 2 [place] iron) 00 (two) Medical tablet times Branch daily. ascorbic Yes [id number] 500mg Take 1 U nivers acid, 3-05 tablet by [facility] vitamin C, 00:00: mouth 3 [place] 500 mg 00 (three) Medical tablet times Branch daily. ferrous Yes [id number] 325mg Take 1 Un indra sulfate 325 3-05 tablet by [facility] of mg (65 mg 00:00: mouth 2 [place] iron) 00 (two) Medical tablet times Branch daily. ascorbic Yes [id number] 500mg Take 1 U nivers acid, 3-05 tablet by [facility] vitamin C, 00:00: mouth 3 [place] 500 mg 00 (three) Medical tablet times Branch daily. ferrous Yes [id number] 325mg Take 1 Un indra sulfate 325 3-05 tablet by [facility] of mg (65 mg 00:00: mouth 2 [place] iron) 00 (two) Medical tablet times Branch daily. ascorbic Yes [id number] 500mg Take 1 U nivers acid, 3-05 tablet by [facility] vitamin C, 00:00: mouth 3 [place] 500 mg 00 (three) Medical tablet times Branch daily. ferrous Yes [id number] 325mg Take 1 Un indra sulfate 325 3-05 tablet by [facility] of mg (65 mg 00:00: mouth 2 [place] iron) 00 (two) Medical tablet times Branch daily. ascorbic Yes [id number] 500mg Take 1 U nivers acid, 3-05 tablet by [facility] vitamin C, 00:00: mouth 3 [place] 500 mg 00 (three) Medical tablet times Branch daily. ferrous Yes [id number] 325mg Take 1 Un indra sulfate 325 3-05 tablet by [facility] of mg (65 mg 00:00: mouth 2 [place] iron) 00 (two) Medical tablet times Branch daily. ascorbic Yes [id number] 500mg Take 1 U nivers acid, 3-05 tablet by [facility] vitamin C, 00:00: mouth 3 [place] 500 mg 00 (three) Medical tablet times Branch daily. ferrous Yes [id number] 325mg Take 1 Un indra sulfate 325 3-05 tablet by [facility] of mg (65 mg 00:00: mouth 2 [place] iron) 00 (two) Medical tablet times Branch daily. ascorbic Yes [id number] 500mg Take 1 U nivers acid, 3-05 tablet by [facility] vitamin C, 00:00: mouth 3 [place] 500 mg 00 (three) Medical tablet times Branch daily. ferrous Yes [id number] 325mg Take 1 Un indra sulfate 325 3-05 tablet by [facility] of mg (65 mg 00:00: mouth 2 [place] iron) 00 (two) Medical tablet times Branch daily. ascorbic Yes [id number] 500mg Take 1 U nivers acid, 3-05 tablet by [facility] vitamin C, 00:00: mouth 3 [place] 500 mg 00 (three) Medical tablet times Branch daily. ferrous Yes [id number] 325mg Take 1 Un indra sulfate 325 3-05 tablet by [facility] of mg (65 mg 00:00: mouth 2 [place] iron) 00 (two) Medical tablet times Branch daily. ascorbic Yes [id number] 500mg Take 1 U nivers acid, 3-05 tablet by [facility] vitamin C, 00:00: mouth 3 [place] 500 mg 00 (three) Medical tablet times Branch daily. ferrous Yes [id number] 325mg Take 1 Un indra sulfate 325 3-05 tablet by [facility] of mg (65 mg 00:00: mouth 2 [place] iron) 00 (two) Medical tablet times Branch daily. ascorbic Yes [id number] 500mg Take 1 U nivers acid, 3-05 tablet by [facility] vitamin C, 00:00: mouth 3 [place] 500 mg 00 (three) Medical tablet times Branch daily. ferrous Yes [id number] 325mg Take 1 Un indra sulfate 325 3-05 tablet by [facility] of mg (65 mg 00:00: mouth 2 [place] iron) 00 (two) Medical tablet times Branch daily. ascorbic Yes [id number] 500mg Take 1 U nivers acid, 3-05 tablet by [facility] vitamin C, 00:00: mouth 3 [place] 500 mg 00 (three) Medical tablet times Branch daily. ferrous Yes [id number] 325mg Take 1 Un indra sulfate 325 3-05 tablet by [facility] of mg (65 mg 00:00: mouth 2 [place] iron) 00 (two) Medical tablet times Branch daily. ascorbic Yes [id number] 500mg Take 1 U nivers acid, 3-05 tablet by [facility] vitamin C, 00:00: mouth 3 [place] 500 mg 00 (three) Medical tablet times Branch daily. ferrous Yes [id number] 325mg Take 1 Un indra sulfate 325 3-05 tablet by [facility] of mg (65 mg 00:00: mouth 2 [place] iron) 00 (two) Medical tablet times Branch daily. ascorbic Yes [id number] 500mg Take 1 U nivers acid, 3-05 tablet by [facility] vitamin C, 00:00: mouth 3 [place] 500 mg 00 (three) Medical tablet times Branch daily. ferrous Yes [id number] 325mg Take 1 Un indra sulfate 325 3-05 tablet by [facility] of mg (65 mg 00:00: mouth 2 [place] iron) 00 (two) Medical tablet times Branch daily. ascorbic Yes [id number] 500mg Take 1 U nivers acid, 3-05 tablet by [facility] vitamin C, 00:00: mouth 3 [place] 500 mg 00 (three) Medical tablet times Branch daily. ferrous Yes [id number] 325mg Take 1 Un indra sulfate 325 3-05 tablet by [facility] of mg (65 mg 00:00: mouth 2 [place] iron) 00 (two) Medical tablet times Branch daily. ascorbic Yes [id number] 500mg Take 1 U nivers acid, 3-05 tablet by [facility] vitamin C, 00:00: mouth 3 [place] 500 mg 00 (three) Medical tablet times Branch daily. ferrous Yes [id number] 325mg Take 1 Un indra sulfate 325 3-05 tablet by [facility] of mg (65 mg 00:00: mouth 2 [place] iron) 00 (two) Medical tablet times Branch daily. ascorbic Yes [id number] 500mg Take 1 U nivers acid, 3-05 tablet by [facility] vitamin C, 00:00: mouth 3 [place] 500 mg 00 (three) Medical tablet times Branch daily. ferrous Yes [id number] 325mg Take 1 Un indra sulfate 325 3-05 tablet by [facility] of mg (65 mg 00:00: mouth 2 [place] iron) 00 (two) Medical tablet times Branch daily. ascorbic Yes [id number] 500mg Take 1 U nivers acid, 3-05 tablet by [facility] of vitamin C, 00:00: mouth 3 [place] 500 mg 00 (three) Medical tablet times Branch daily. ferrous Yes [id number] 325mg Take 1 Un indra sulfate 325 3-05 tablet by [facility] of mg (65 mg 00:00: mouth 2 [place] iron) 00 (two) Medical tablet times Branch daily. ascorbic Yes [id number] 500mg Take 1 U nivers acid, 3-05 tablet by [facility] vitamin C, 00:00: mouth 3 [place] 500 mg 00 (three) Medical tablet times Branch daily. ferrous Yes [id number] 325mg Take 1 Un indra sulfate 325 3-05 tablet by [facility] of mg (65 mg 00:00: mouth 2 [place] iron) 00 (two) Medical tablet times Branch daily. ascorbic Yes [id number] 500mg Take 1 U nivers acid, 3-05 tablet by [facility] of vitamin C, 00:00: mouth 3 [place] 500 mg 00 (three) Medical tablet times Branch daily. ferrous Yes [id number] 325mg Take 1 Un indra sulfate 325 3-05 tablet by [facility] of mg (65 mg 00:00: mouth 2 [place] iron) 00 (two) Medical tablet times Branch daily. ascorbic Yes [id number] 500mg Take 1 U nivers acid, 3-05 tablet by [facility] of vitamin C, 00:00: mouth 3 [place] 500 mg 00 (three) Medical tablet times Branch daily. ferrous Yes Anemia of 325mg Take 1 Un indra sulfate 325 3-05 mother in tablet by [...] times Branch daily. PNV 67-iron 2019-02 Yes [id number] 1{capsu Take 1 [facility] ps-folate 2-15 le} capsule by ity of no.1-dha 00:00: mouth [place] (VITAFOL 00 daily. Medical ULTRA) 29 Branch mg iron- 1 mg-200 mg Cap PNV 67-iron 2019-02 Yes [id number] 1{capsu Take 1 [facility] ps-folate 2-15 le} capsule by ity of no.1-dha 00:00: mouth [place] (VITAFOL 00 daily. Medical ULTRA) 29 Branch mg iron- 1 mg-200 mg Cap PNV 67-iron 2020-1 Yes [id number] 1{capsu Take 1 [facility] ps-folate 2-15 le} capsule by ity of no.1-dha 00:00: mouth [place] (VITAFOL 00 daily. Medical ULTRA) 29 Branch mg iron- 1 mg-200 mg Cap PNV 67-iron 2020-1 Yes [id number] 1{capsu Take 1 [facility] ps-folate 2-15 le} capsule by ity of no.1-dha 00:00: mouth [place] (VITAFOL 00 daily. Medical ULTRA) 29 Branch mg iron- 1 mg-200 mg Cap PNV 67-iron 2020-1 Yes [id number] 1{capsu Take 1 [facility] ps-folate 2-15 le} capsule by ity of no.1-dha 00:00: mouth [place] (VITAFOL 00 daily. Medical ULTRA) 29 Branch mg iron- 1 mg-200 mg Cap PNV 67-iron 2020-1 Yes [id number] 1{capsu Take 1 [facility] ps-folate 2-15 le} capsule by ity of no.1-dha 00:00: mouth [place] (VITAFOL 00 daily. Medical ULTRA) 29 Branch mg iron- 1 mg-200 mg Cap PNV 67-iron 2020-1 Yes [id number] 1{capsu Take 1 [facility] ps-folate 2-15 le} capsule by ity of no.1-dha 00:00: mouth [place] (VITAFOL 00 daily. Medical ULTRA) 29 Branch mg iron- 1 mg-200 mg Cap PNV 67-iron 2020-1 Yes [id number] 1{capsu Take 1 [facility] ps-folate 2-15 le} capsule by ity of no.1-dha 00:00: mouth [place] (VITAFOL 00 daily. Medical ULTRA) 29 Branch mg iron- 1 mg-200 mg Cap PNV 67-iron 2020-1 Yes [id number] 1{capsu Take 1 [facility] ps-folate 2-15 le} capsule by ity of no.1-dha 00:00: mouth [place] (VITAFOL 00 daily. Medical ULTRA) 29 Branch mg iron- 1 mg-200 mg Cap PNV 67-iron 2020-1 Yes [id number] 1{capsu Take 1 [facility] ps-folate 2-15 le} capsule by ity of no.1-dha 00:00: mouth [place] (VITAFOL 00 daily. Medical ULTRA) 29 Branch mg iron- 1 mg-200 mg Cap PNV 67-iron 2020-1 Yes [id number] 1{capsu Take 1 [facility] ps-folate 2-15 le} capsule by ity of no.1-dha 00:00: mouth [place] (VITAFOL 00 daily. Medical ULTRA) 29 Branch mg iron- 1 mg-200 mg Cap PNV 67-iron 2020-1 Yes [id number] 1{capsu Take 1 [facility] ps-folate 2-15 le} capsule by ity of no.1-dha 00:00: mouth [place] (VITAFOL 00 daily. Medical ULTRA) 29 Branch mg iron- 1 mg-200 mg Cap PNV 67-iron 2020-1 Yes [id number] 1{capsu Take 1 [facility] ps-folate 2-15 le} capsule by ity of no.1-dha 00:00: mouth [place] (VITAFOL 00 daily. Medical ULTRA) 29 Branch mg iron- 1 mg-200 mg Cap PNV 67-iron 2020-1 Yes [id number] 1{capsu Take 1 [facility] ps-folate 2-15 le} capsule by ity of no.1-dha 00:00: mouth [place] (VITAFOL 00 daily. Medical ULTRA) 29 Branch mg iron- 1 mg-200 mg Cap PNV 67-iron 2020-1 Yes [id number] 1{capsu Take 1 [facility] ps-folate 2-15 le} capsule by ity of no.1-dha 00:00: mouth [place] (VITAFOL 00 daily. Medical ULTRA) 29 Branch mg iron- 1 mg-200 mg Cap PNV 67-iron 2020-1 Yes [id number] 1{capsu Take 1 [facility] ps-folate 2-15 le} capsule by ity of no.1-dha 00:00: mouth [place] (VITAFOL 00 daily. Medical ULTRA) 29 Branch mg iron- 1 mg-200 mg Cap PNV 67-iron 2020-1 Yes [id number] 1{capsu Take 1 [facility] ps-folate 2-15 le} capsule by ity of no.1-dha 00:00: mouth [place] (VITAFOL 00 daily. Medical ULTRA) 29 Branch mg iron- 1 mg-200 mg Cap PNV 67-iron 2020-1 Yes [id number] 1{capsu Take 1 [facility] ps-folate 2-15 le} capsule by ity of no.1-dha 00:00: mouth [place] (VITAFOL 00 daily. Medical ULTRA) 29 Branch mg iron- 1 mg-200 mg Cap PNV 67-iron 2020-1 Yes [id number] 1{capsu Take 1 [facility] ps-folate 2-15 le} capsule by ity of no.1-dha 00:00: mouth [place] (VITAFOL 00 daily. Medical ULTRA) 29 Branch mg iron- 1 mg-200 mg Cap PNV 67-iron 2020-1 Yes [id number] 1{capsu Take 1 [facility] ps-folate 2-15 le} capsule by ity of no.1-dha 00:00: mouth [place] (VITAFOL 00 daily. Medical ULTRA) 29 Branch mg iron- 1 mg-200 mg Cap PNV 67-iron 2020-1 Yes [id number] 1{capsu Take 1 [facility] ps-folate 2-15 le} capsule by ity of no.1-dha 00:00: mouth [place] (VITAFOL 00 daily. Medical ULTRA) 29 Branch mg iron- 1 mg-200 mg Cap PNV 67-iron 2020-1 Yes [id number] 1{capsu Take 1 [facility] ps-folate 2-15 le} capsule by ity of no.1-dha 00:00: mouth [place] (VITAFOL 00 daily. Medical ULTRA) 29 Branch mg iron- 1 mg-200 mg Cap PNV 67-iron 2020-1 Yes [id number] 1{capsu Take 1 [facility] ps-folate 2-15 le} capsule by ity of no.1-dha 00:00: mouth [place] (VITAFOL 00 daily. Medical ULTRA) 29 Branch mg iron- 1 mg-200 mg Cap PNV 67-iron 2020-1 Yes [id number] 1{capsu Take 1 [facility] ps-folate 2-15 le} capsule by ity of no.1-dha 00:00: mouth [place] (VITAFOL 00 daily. Medical ULTRA) 29 Branch mg iron- 1 mg-200 mg Cap PNV 67-iron 2020-1 Yes [id number] 1{capsu Take 1 [facility] ps-folate 2-15 le} capsule by ity of no.1-dha 00:00: mouth [place] (VITAFOL 00 daily. Medical ULTRA) 29 Branch mg iron- 1 mg-200 mg Cap PNV 67-iron 2020-1 Yes [id number] 1{capsu Take 1 [facility] ps-folate 2-15 le} capsule by ity of no.1-dha 00:00: mouth [place] (VITAFOL 00 daily. Medical ULTRA) 29 Branch mg iron- 1 mg-200 mg Cap PNV 67-iron 2020-1 Yes [id number] 1{capsu Take 1 [facility] ps-folate 2-15 le} capsule by ity of no.1-dha 00:00: mouth [place] (VITAFOL 00 daily. Medical ULTRA) 29 Branch mg iron- 1 mg-200 mg Cap PNV 67-iron 2020-1 Yes [id number] 1{capsu Take 1 [facility] ps-folate 2-15 le} capsule by ity of no.1-dha 00:00: mouth [place] (VITAFOL 00 daily. Medical ULTRA) 29 Branch mg iron- 1 mg-200 mg Cap PNV 67-iron 2020-1 Yes [id number] 1{capsu Take 1 [facility] ps-folate 2-15 le} capsule by ity of no.1-dha 00:00: mouth [place] (VITAFOL 00 daily. Medical ULTRA) 29 Branch mg iron- 1 mg-200 mg Cap PNV 67-iron 2020-1 Yes [id number] 1{capsu Take 1 [facility] ps-folate 2-15 le} capsule by ity of no.1-dha 00:00: mouth [place] (VITAFOL 00 daily. Medical ULTRA) 29 Branch mg iron- 1 mg-200 mg Cap PNV 67-iron 2020-1 Yes [id number] 1{capsu Take 1 [facility] ps-folate 2-15 le} capsule by ity of no.1-dha 00:00: mouth [place] (VITAFOL 00 daily. Medical ULTRA) 29 Branch mg iron- 1 mg-200 mg Cap PNV 67-iron 2020-1 Yes [id number] 1{capsu Take 1 [facility] ps-folate 2-15 le} capsule by ity of no.1-dha 00:00: mouth [place] (VITAFOL 00 daily. Medical ULTRA) 29 Branch mg iron- 1 mg-200 mg Cap PNV 67-iron 2020-1 Yes [id number] 1{capsu Take 1 [facility] ps-folate 2-15 le} capsule by ity of no.1-dha 00:00: mouth [place] (VITAFOL 00 daily. Medical ULTRA) 29 Branch mg iron- 1 mg-200 mg Cap PNV 67-iron 2020-1 Yes [id number] 1{capsu Take 1 [facility] ps-folate 2-15 le} capsule by ity of no.1-dha 00:00: mouth [place] (VITAFOL 00 daily. Medical ULTRA) 29 Branch mg iron- 1 mg-200 mg Cap PNV 67-iron 2020-1 Yes [id number] 1{capsu Take 1 [facility] ps-folate 2-15 le} capsule by ity of no.1-dha 00:00: mouth [place] (VITAFOL 00 daily. Medical ULTRA) 29 Branch mg iron- 1 mg-200 mg Cap PNV 67-iron 2020-1 Yes [id number] 1{capsu Take 1 [facility] ps-folate 2-15 le} capsule by ity of no.1-dha 00:00: mouth [place] (VITAFOL 00 daily. Medical ULTRA) 29 Branch mg iron- 1 mg-200 mg Cap PNV 67-iron 2020-1 Yes [id number] 1{capsu Take 1 [facility] ps-folate 2-15 le} capsule by ity of no.1-dha 00:00: mouth [place] (VITAFOL 00 daily. Medical ULTRA) 29 Branch mg iron- 1 mg-200 mg Cap PNV 67-iron 2020-1 Yes [id number] 1{capsu Take 1 [facility] ps-folate 2-15 le} capsule by ity of no.1-dha 00:00: mouth [place] (VITAFOL 00 daily. Medical ULTRA) 29 Branch mg iron- 1 mg-200 mg Cap PNV 67-iron 2020-1 Yes [id number] 1{capsu Take 1 [facility] ps-folate 2-15 le} capsule by ity of no.1-dha 00:00: mouth [place] (VITAFOL 00 daily. Medical ULTRA) 29 Branch mg iron- 1 mg-200 mg Cap PNV 67-iron 2020-1 Yes Supervision 1{capsu Take 1 [facility] ps-folate 2-15 of high le} capsule by i ty of no.1-dha 00:00: risk mouth [place] (VITAFOL 00 daily. Medi nba ULTRA) 29 in second Branc h mg iron- 1 trimester mg-200 mg Cap PNV 67-iron 2020-2020- No [id number] 1{capsu Take 1 [facility] ps-folate 2-15 05-30 le} capsule by ity of no.1-dha 00:00: 00:00 mouth [place] (VITAFOL 00 :00 daily. Medical ULTRA) 29 Branch mg iron- 1 mg-200 mg Cap PNV 67-iron 2019-02- No [id number] 1{capsu Take 1 [facility] ps-folate 2-15 05-30 le} capsule by ity of no.1-dha 00:00: 00:00 mouth [place] (VITAFOL 00 :00 daily. Medical ULTRA) 29 Branch mg iron- 1 mg-200 mg Cap measles, 2019- No .5mL 0.5 mL, Unive rs mumps + -10-13 Subcutaneo ity o f rubella vac 13:00: 17:27 , ONCE, [place] (M-M-R II) 00 :00 1 dose, Medica l 1,000-12,50 Tue Branch 0 10/13/18 at TCID50/0.5 0800, mL Routine injection 0.5 mL 2018- Yes [id number] 1{tbl} Take 1 [facility] vitamin 8-27 tablet by ity of w/FA tablet 00:00: mouth 00 daily. Medical Branch docusate Yes [id number] 240mg Take 1 U nivers calcium 240 8-27 capsule by it y of mg capsule 00:00: mouth once [place] 00 daily as Medical needed for Branch Constipati on. ferrous 2018- Yes [id number] 325mg Take 1 Un indra sulfate 325 8-27 tablet by ity of mg (65 mg 00:00: mouth 2 [place] iron) 00 (two) Medical tablet times Branch daily. ibuprofen 2018- Yes [id number] 600mg Take 1 [facility] 600 mg 8-27 tablet by ity of tablet 00:00: mouth [place] 00 every 6 Medical (six) Branch hours as needed for Pain (scale 1-3) or Pain (scale 4-6) (Pain). Take with food or milk. 2019- Yes [id number] 1{tbl} Take 1 [facility] vitamin 8-27 tablet by ity of w/FA tablet 00:00: mouth [place] 00 daily. Medical Branch docusate Yes [id number] 240mg Take 1 U nivers calcium 240 8-27 capsule by it y of mg capsule 00:00: mouth once [place] 00 daily as Medical needed for Branch Constipati on. ferrous 2019-0 Yes [id number] 325mg Take 1 Un indra sulfate 325 8-27 tablet by ity of mg (65 mg 00:00: mouth 2 [place] iron) 00 (two) Medical tablet times Branch daily. ibuprofen 2019- Yes [id number] 600mg Take 1 [facility] 600 mg 8-27 tablet by ity of tablet 00:00: mouth [place] 00 every 6 Medical (six) Branch hours as needed for Pain (scale 1-3) or Pain (scale 4-6) (Pain). Take with food or milk. 2018- Yes [id number] 1{tbl} Take 1 [facility] vitamin 8-27 tablet by ity of w/FA tablet 00:00: mouth [place] 00 daily. Medical Branch docusate Yes [id number] 240mg Take 1 U nivers calcium 240 8-27 capsule by it y of mg capsule 00:00: mouth once [place] 00 daily as Medical needed for Branch Constipati on. ferrous Yes [id number] 325mg Take 1 Un indra sulfate 325 8-27 tablet by ity of mg (65 mg 00:00: mouth 2 [place] iron) 00 (two) Medical tablet times Branch daily. ibuprofen 0 Yes [id number] 600mg Take 1 [facility] 600 mg 8-27 tablet by ity of tablet 00:00: mouth [place] 00 every 6 Medical (six) Branch hours as needed for Pain (scale 1-3) or Pain (scale 4-6) (Pain). Take with food or milk. 2018-0 Yes [id number] 1{tbl} Take 1 [facility] vitamin 8-27 tablet by ity of w/FA tablet 00:00: mouth [place] 00 daily. Medical Branch docusate 0 Yes [id number] 240mg Take 1 U nivers calcium 240 8-27 capsule by it y of mg capsule 00:00: mouth once [place] 00 daily as Medical needed for Branch Constipati on. ferrous 2018-0 Yes [id number] 325mg Take 1 Un indra sulfate 325 8-27 tablet by ity of mg (65 mg 00:00: mouth 2 [place] iron) 00 (two) Medical tablet times Branch daily. ibuprofen 2019-0 Yes [id number] 600mg Take 1 [facility] 600 mg 8-27 tablet by ity of tablet 00:00: mouth [place] 00 every 6 Medical (six) Branch hours as needed for Pain (scale 1-3) or Pain (scale 4-6) (Pain). Take with food or milk. 2018- Yes [id number] 1{tbl} Take 1 [facility] vitamin 8-27 tablet by ity of w/FA tablet 00:00: mouth [place] 00 daily. Medical Branch docusate 0 Yes [id number] 240mg Take 1 [facility] nivers calcium 240 8-27 capsule by it y of mg capsule 00:00: mouth once [place] 00 daily as Medical needed for Branch Constipati on. ferrous 2018-0 Yes [id number] 325mg Take 1 Un indra sulfate 325 8-27 tablet by ity of mg (65 mg 00:00: mouth 2 [place] iron) 00 (two) Medical tablet times Branch daily. ibuprofen Yes [id number] 600mg Take 1 [facility] 600 mg 8-27 tablet by ity of tablet 00:00: mouth [place] 00 every 6 Medical (six) Branch hours as needed for Pain (scale 1-3) or Pain (scale 4-6) (Pain). Take with food or milk. Yes [id number] 1{tbl} Take 1 [facility] vitamin 8-27 tablet by ity of w/FA tablet 00:00: mouth [place] 00 daily. Medical Branch docusate Yes [id number] 240mg Take 1 [facility] nivers calcium 240 8-27 capsule by it y of mg capsule 00:00: mouth once [place] 00 daily as Medical needed for Branch Constipati on. ferrous 2018-0 Yes [id number] 325mg Take 1 Un indra sulfate 325 8-27 tablet by ity of mg (65 mg 00:00: mouth 2 [place] iron) 00 (two) Medical tablet times Branch daily. ibuprofen 0 Yes [id number] 600mg Take 1 [facility] 600 mg 8-27 tablet by ity of tablet 00:00: mouth [place] 00 every 6 Medical (six) Branch hours as needed for Pain (scale 1-3) or Pain (scale 4-6) (Pain). Take with food or milk. 2018-0 Yes [id number] 1{tbl} Take 1 [facility] vitamin 8-27 tablet by ity of w/FA tablet 00:00: mouth [place] 00 daily. Medical Branch docusate Yes [id number] 240mg Take 1 [facility] nivers calcium 240 8-27 capsule by it y of mg capsule 00:00: mouth once [place] 00 daily as Medical needed for Branch Constipati on. ferrous Yes [id number] 325mg Take 1 Un indra sulfate 325 8-27 tablet by ity of mg (65 mg 00:00: mouth 2 [place] iron) 00 (two) Medical tablet times Branch daily. ibuprofen 2018- Yes [id number] 600mg Take 1 [facility] 600 mg 8-27 tablet by ity of tablet 00:00: mouth [place] 00 every 6 Medical (six) Branch hours as needed for Pain (scale 1-3) or Pain (scale 4-6) (Pain). Take with food or milk. Yes [id number] 1{tbl} Take 1 [facility] vitamin 8-27 tablet by ity of w/FA tablet 00:00: mouth [place] 00 daily. Medical Branch docusate Yes [id number] 240mg Take 1 [facility] nivers calcium 240 8-27 capsule by it y of mg capsule 00:00: mouth once [place] 00 daily as Medical needed for Branch Constipati on. ferrous Yes [id number] 325mg Take 1 Un indra sulfate 325 8-27 tablet by ity of mg (65 mg 00:00: mouth 2 [place] iron) 00 (two) Medical tablet times Branch daily. ibuprofen Yes [id number] 600mg Take 1 [facility] 600 mg 8-27 tablet by ity of tablet 00:00: mouth [place] 00 every 6 Medical (six) Branch hours as needed for Pain (scale 1-3) or Pain (scale 4-6) (Pain). Take with food or milk. 2019-0 Yes [id number] 1{tbl} Take 1 [facility] vitamin 8-27 tablet by ity of w/FA tablet 00:00: mouth [place] 00 daily. Medical Branch docusate Yes [id number] 240mg Take 1 [facility] nivers calcium 240 8-27 capsule by it y of mg capsule 00:00: mouth once [place] 00 daily as Medical needed for Branch Constipati on. ferrous Yes [id number] 325mg Take 1 Un indra sulfate 325 8-27 tablet by ity of mg (65 mg 00:00: mouth 2 [place] iron) 00 (two) Medical tablet times Branch daily. ibuprofen Yes [id number] 600mg Take 1 [facility] 600 mg 8-27 tablet by ity of tablet 00:00: mouth [place] 00 every 6 Medical (six) Branch hours as needed for Pain (scale 1-3) or Pain (scale 4-6) (Pain). Take with food or milk. Yes [id number] 1{tbl} Take 1 [facility] vitamin 8-27 tablet by ity of w/FA tablet 00:00: mouth [place] 00 daily. Medical Branch docusate Yes [id number] 240mg Take 1 U nivers calcium 240 8-27 capsule by it y of mg capsule 00:00: mouth [place] 00 daily as Medical needed for Branch Constipati on. ferrous Yes [id number] 325mg Take 1 Un indra sulfate 325 8-27 tablet by ity of mg (65 mg 00:00: mouth 2 [place] iron) 00 (two) Medical tablet times Branch daily. ibuprofen Yes [id number] 600mg Take 1 [facility] 600 mg 8-27 tablet by ity of tablet 00:00: mouth [place] 00 every 6 Medical (six) Branch hours as needed for Pain (scale 1-3) or Pain (scale 4-6) (Pain). Take with food or milk. 2020- No [id number] 1{tbl} Take 1 [facility] vitamin 8-27 10-16 tablet by ity of w/FA tablet 00:00: [place] :[place] daily. Medical Branch docusate 2020- No [id number] 240mg Take 1 [facility] calcium 240 8-27 10-16 capsule by i ty of mg capsule 00:00: 00:00 mouth once [place] 00 :00 daily as Medical needed for Branch Constipati on. ferrous 2020- No [id number] 325mg Take 1 U nivers sulfate 325 8-27 10-16 tablet by it y of mg (65 mg 00:00: 00:00 [place] iron[place] 00 :00 (two) Medical tablet times Branch daily. ibuprofen 2020- No [id number] 600mg Take 1 [facility] 600 mg 8 10-16 tablet by ity of tablet 00:00: 00:00 mouth [place] 00 :00 every 6 Medical (six) Branch hours as needed for Pain (scale 1-3) or Pain (scale 4-6) (Pain). Take with food or milk. human 2019-0 Yes .5mL 0.5 mL, Univers papillomav 10-12 Intramuscu ity of vac,9-katherine(P 10:32: lar, [place] F) 12 ONCE-PRIOR Medical (GARDASIL 9 TO Branch (PF)) vial DISCHARGE, 0.5 mL 1 dose, Starting 10/12/18 at 0532, Until Discontinu ed, Routine, Give vaccine prior to discharge acetaminoph 2019-0 Yes 650mg 650 mg, Un indra en 10-12 Oral, ity of (TYLENOL) 10:32: Q6HPRN, [place] tablet 650 12 Starting Medic al mg [facility] 10/12/18 at 0532, Until Discontinu ed, Routine, Pain (scale 1-3) ibuprofen 2019-0 Yes 600mg 600 mg, Univ ers (IBU) 10-12 Oral, ity of tablet 600 10:32: Q6HPRN[place] mg 12 Starting Medical [facility] Branch 10/12/18 at 0532, Until Discontinu ed, Routine, Pain (scale 4-6) diphenhydrA 2019-0 Yes 25mg 25 mg, Univ ers MINE 10-12 Oral, ity of (BENADRYL) 10:32: Q6HPRN, [place] tablet 25 12 Starting Medica l mg [facility] 10/12/18 at 0532, Until Discontinu ed, Routine, Sleep, Itching ondansetron 2019-0 Yes 4mg 4 mg, Slow Univers (ZOFRAN 10-12 IV Push, ity of (PF)) 10:32: Q8HPRN, [place] injection 4 12 Starting Medi nba mg [facility] 10/12/18 at 0532, Until Discontinu ed, Routine, Nausea and Vomiting (N/V) simethicone 2019-0 Yes 160mg 160 mg, Un indra (GAS 10-12 Oral, ity of RELIEF) 10:32: PC+HSPRN, [place] chewable 12 Starting Medical tablet 160 Mon Branch mg 10/12/18 at 0532, Until Discontinu ed, Routine, Gas docusate Yes 240mg 240 mg, Unive rs calcium 10-12 Oral, ity of (SURFAK) 10:32: QDAILYPRN, [place] capsule 240 12 Starting Medi nba mg [facility] Branch 10/12/18 at 0532, Until Discontinu ed, Routine, Constipati on magnesium Yes 30mL 30 mL, Univer s hydroxide 10-12 Oral, ity of (MILK OF 10:32: QDAILYPRN, [place] as MAGNESIA) 12 Starting Medica l 400 mg/5 mL [facility] suspension 10/12/18 at 30 mL 0532, Until [...] Solution 00 :00 ONCE, 1 Medical dose, [facility] 10/12/18 at 0145, Routine sodium 2019- No [...] Infusion, TITRATE, Starting 10/11/18 at 1244, Until 10/12/18 at 0532, TERI, [facility] q2m acetaminoph Yes [id number] 1{capsu Take 1 Univers en-caff-but 7-10 le} capsule by it y of albital 00:00: mouth [place] (ESGIC) per 00 every 6 Medic al capsule (six) Branch hours as needed for Pain. acetaminoph Yes [id number] 1{capsu Take 1 Univers en-caff-but 7-10 le} capsule by it y of albital 00:00: mouth [place] (ESGIC) per 00 every 6 Medic al capsule (six) Branch hours as needed for Pain. acetaminoph Yes [id number] 1{capsu Take 1 Univers en-caff-but 7-10 le} capsule by it y of albital 00:00: mouth [place] (ESGIC) per 00 every 6 Medic al capsule (six) Branch hours as needed for Pain. acetaminoph Yes [id number] 1{capsu Take 1 Univers en-caff-but 7-10 le} capsule by it y of albital 00:00: mouth [place] (ESGIC) per 00 every 6 Medic al capsule (six) Branch hours as needed for Pain. acetaminoph Yes [id number] 1{capsu Take 1 Univers en-caff-but 7-10 le} capsule by it y of albital 00:00: mouth [place] (ESGIC) per 00 every 6 Medic al capsule (six) Branch hours as needed for Pain. acetaminoph Yes [id number] 1{capsu Take 1 Univers en-caff-but 7-10 le} capsule by it y of albital 00:00: mouth [place] (ESGIC) per 00 every 6 Medic al capsule (six) Branch hours as needed for Pain. acetaminoph Yes [id number] 1{capsu Take 1 Univers en-caff-but 7-10 le} capsule by it y of albital 00:00: mouth [place] (ESGIC) per 00 every 6 Medic al capsule (six) Branch hours as needed for Pain. acetaminoph Yes [id number] 1{capsu Take 1 Univers en-caff-but 7-10 le} capsule by it y of albital 00:00: mouth [place] (ESGIC) per 00 every 6 Medic al capsule (six) Branch hours as needed for Pain. acetaminoph Yes [id number] 1{capsu Take 1 Univers en-caff-but 7-10 le} capsule by it y of albital 00:00: mouth [place] (ESGIC) per 00 every 6 Medic al capsule (six) Branch hours as needed for Pain. acetaminoph Yes [id number] 1{capsu Take 1 Univers en-caff-but 7-10 le} capsule by it y of albital 00:00: mouth [place] (ESGIC) per 00 every 6 Medic al capsule (six) Branch hours as needed for Pain. acetaminoph Yes [id number] 1{capsu Take 1 Univers en-caff-but 7-10 le} capsule by it y of albital 00:00: mouth [place] (ESGIC) per 00 every 6 Medic al capsule (six) Branch hours as needed for Pain. acetaminoph Yes [id number] 1{capsu Take 1 Univers en-caff-but 7-10 le} capsule by it y of albital 00:00: mouth [place] (ESGIC) per 00 every 6 Medic al capsule (six) Branch hours as needed for Pain. acetaminoph Yes [id number] 1{capsu Take 1 Univers en-caff-but 7-10 le} capsule by it y of albital 00:00: mouth [place] (ESGIC) per 00 every 6 Medic al capsule (six) Branch hours as needed for Pain. acetaminoph Yes [id number] 1{capsu Take 1 Univers en-caff-but 7-10 le} capsule by it y of albital 00:00: mouth [place] (ESGIC) per 00 every 6 Medic al capsule (six) Branch hours as needed for Pain. acetaminoph Yes [id number] 1{capsu Take 1 Univers en-caff-but 7-10 le} capsule by it y of albital 00:00: mouth [place] (ESGIC) per 00 every 6 Medic al capsule (six) Branch hours as needed for Pain. acetaminoph Yes [id number] 1{capsu Take 1 Univers en-caff-but 7-10 le} capsule by it y of albital 00:00: mouth [place] (ESGIC) per 00 every 6 Medic al capsule (six) Branch hours as needed for Pain. acetaminoph Yes [id number] 1{capsu Take 1 Univers en-caff-but 7-10 le} capsule by it y of albital 00:00: mouth [place] (ESGIC) per 00 every 6 Medic al capsule (six) Branch hours as needed for Pain. acetaminoph Yes [id number] 1{capsu Take 1 Univers en-caff-but 7-10 le} capsule by it y of albital 00:00: mouth [place] (ESGIC) per 00 every 6 Medic al capsule (six) Branch hours as needed for Pain. acetaminoph Yes [id number] 1{capsu Take 1 Univers en-caff-but 7-10 le} capsule by it y of albital 00:00: mouth [place] (ESGIC) per 00 every 6 Medic al capsule (six) Branch hours as needed for Pain. acetaminoph Yes [id number] 1{capsu Take 1 Univers en-caff-but 7-10 le} capsule by it y of albital 00:00: mouth [place] (ESGIC) per 00 every 6 Medic al capsule (six) Branch hours as needed for Pain. acetaminoph Yes [id number] 1{capsu Take 1 Univers en-caff-but 7-10 le} capsule by it y of albital 00:00: mouth [place] (ESGIC) per 00 every 6 Medic al capsule (six) Branch hours as needed for Pain. acetaminoph 2020- No [id number] 1{capsu Take 1 Univers en-caff-but 7-10 10-16 le} capsule by i ty of albital 00:00: 00:00 mouth [place] (ESGIC) per 00 :00 every 6 Medic al capsule (six) Branch hours as needed for Pain. proMETHazin 2018- Yes [id number] 25mg Take 1 Univers e 25 mg 5-10 tablet by ity of tablet 00:00: mouth [place] 00 every 6 Medical (six) Branch hours as needed for Nausea and Vomiting (N/V). acetaminoph Yes [id number] 1{capsu Take 1 Univers en-caff-but 5-10 le} capsule by it y of albital 00:00: mouth [place] (ESGIC) per 00 every 6 Medic al capsule (six) Branch hours as needed (headache) . proMETHazin Yes [id number] 25mg Take 1 Univers e 25 mg 5-10 tablet by ity of tablet 00:00: mouth [place] 00 every 6 Medical (six) Branch hours as needed for Nausea and Vomiting (N/V). acetaminoph Yes [id number] 1{capsu Take 1 Univers en-caff-but 5-10 le} capsule by it y of albital 00:00: mouth [place] (ESGIC) per 00 every 6 Medic al capsule (six) Branch hours as needed (headache) . proMETHazin Yes [id number] 25mg Take 1 Univers e 25 mg 5-10 tablet by ity of tablet 00:00: mouth [place] 00 every 6 Medical (six) Branch hours as needed for Nausea and Vomiting (N/V). acetaminoph Yes [id number] 1{capsu Take 1 Univers en-caff-but 5-10 le} capsule by it y of albital 00:00: mouth [place] (ESGIC) per 00 every 6 Medic al capsule (six) Branch hours as needed (headache) . proMETHazin Yes [id number] 25mg Take 1 Univers e 25 mg 5-10 tablet by ity of tablet 00:00: mouth [place] 00 every 6 Medical (six) Branch hours as needed for Nausea and Vomiting (N/V). acetaminoph Yes [id number] 1{capsu Take 1 Univers en-caff-but 5-10 le} capsule by it y of albital 00:00: mouth [place] (ESGIC) per 00 every 6 Medic al capsule (six) Branch hours as needed (headache) . proMETHazin 2018- Yes [id number] 25mg Take 1 Univers e 25 mg 5-10 tablet by ity of tablet 00:00: mouth [place] 00 every 6 Medical (six) Branch hours as needed for Nausea and Vomiting (N/V). acetaminoph Yes [id number] 1{capsu Take 1 Univers en-caff-but 5-10 le} capsule by it y of albital 00:00: mouth [place] (ESGIC) per 00 every 6 Medic al capsule (six) Branch hours as needed (headache) . proMETHazin Yes [id number] 25mg Take 1 Univers e 25 mg 5-10 tablet by ity of tablet 00:00: mouth [place] 00 every 6 Medical (six) Branch hours as needed for Nausea and Vomiting (N/V). acetaminoph Yes [id number] 1{capsu Take 1 Univers en-caff-but 5-10 le} capsule by it y of albital 00:00: mouth [place] (ESGIC) per 00 every 6 Medic al capsule (six) Branch hours as needed (headache) . proMETHazin Yes [id number] 25mg Take 1 Univers e 25 mg 5-10 tablet by ity of tablet 00:00: mouth [place] 00 every 6 Medical (six) Branch hours as needed for Nausea and Vomiting (N/V). acetaminoph Yes [id number] 1{capsu Take 1 Univers en-caff-but 5-10 le} capsule by it y of albital 00:00: mouth [place] (ESGIC) per 00 every 6 Medic al capsule (six) Branch hours as needed (headache) . proMETHazin Yes [id number] 25mg Take 1 Univers e 25 mg 5-10 tablet by ity of tablet 00:00: mouth [place] 00 every 6 Medical (six) Branch hours as needed for Nausea and Vomiting (N/V). acetaminoph Yes [id number] 1{capsu Take 1 Univers en-caff-but 5-10 le} capsule by it y of albital 00:00: mouth [place] (ESGIC) per 00 every 6 Medic al capsule (six) Branch hours as needed (headache) . proMETHazin Yes [id number] 25mg Take 1 Univers e 25 mg 5-10 tablet by ity of tablet 00:00: mouth [place] 00 every 6 Medical (six) Branch hours as needed for Nausea and Vomiting (N/V). acetaminoph Yes [id number] 1{capsu Take 1 Univers en-caff-but 5-10 le} capsule by it y of albital 00:00: mouth [place] (ESGIC) per 00 every 6 Medic al capsule (six) Branch hours as needed (headache) . proMETHazin Yes [id number] 25mg Take 1 Univers e 25 mg 5-10 tablet by ity of tablet 00:00: mouth [place] 00 every 6 Medical (six) Branch hours as needed for Nausea and Vomiting (N/V). proMETHazin 2019-0 Yes [id number] 25mg Take 1 Univers e 25 mg 5-10 tablet by ity of tablet 00:00: mouth [place] 00 every 6 Medical (six) Branch hours as needed for Nausea and Vomiting (N/V). proMETHazin 2019-0 Yes [id number] 25mg Take 1 Univers e 25 mg 5-10 tablet by ity of tablet 00:00: mouth [place] 00 every 6 Medical (six) Branch hours as needed for Nausea and Vomiting (N/V). proMETHazin 2018-0 Yes [id number] 25mg Take 1 Univers e 25 mg 5-10 tablet by ity of tablet 00:00: mouth [place] 00 every 6 Medical (six) Branch hours as needed for Nausea and Vomiting (N/V). proMETHazin 2018-0 Yes [id number] 25mg Take 1 Univers e 25 mg 5-10 tablet by ity of tablet 00:00: mouth [place] 00 every 6 Medical (six) Branch hours as needed for Nausea and Vomiting (N/V). proMETHazin 2018-0 Yes [id number] 25mg Take 1 Univers e 25 mg 5-10 tablet by ity of tablet 00:00: mouth [place] 00 every 6 Medical (six) Branch hours as needed for Nausea and Vomiting (N/V). proMETHazin 2018-0 Yes [id number] 25mg Take 1 Univers e 25 mg 5-10 tablet by ity of tablet 00:00: mouth [place] 00 every 6 Medical (six) Branch hours as needed for Nausea and Vomiting (N/V). proMETHazin 2019-0 Yes [id number] 25mg Take 1 Univers e 25 mg 5-10 tablet by ity of tablet 00:00: mouth [place] 00 every 6 Medical (six) Branch hours as needed for Nausea and Vomiting (N/V). proMETHazin 2019-0 Yes [id number] 25mg Take 1 Univers e 25 mg 5-10 tablet by ity of tablet 00:00: mouth [place] 00 every 6 Medical (six) Branch hours as needed for Nausea and Vomiting (N/V). proMETHazin 2019-0 Yes [id number] 25mg Take 1 Univers e 25 mg 5-10 tablet by ity of tablet 00:00: mouth [place] 00 every 6 Medical (six) Branch hours as needed for Nausea and Vomiting (N/V). proMETHazin 2019 Yes [id number] 25mg Take 1 Univers e 25 mg 5-10 tablet by ity of tablet 00:00: mouth [place] 00 every 6 Medical (six) Branch hours as needed for Nausea and Vomiting (N/V). proMETHazin Yes [id number] 25mg Take 1 Univers e 25 mg 5-10 tablet by ity of tablet 00:00: mouth [place] 00 every 6 Medical (six) Branch hours as needed for Nausea and Vomiting (N/V). proMETHazin Yes [id number] 25mg Take 1 Univers e 25 mg 5-10 tablet by ity of tablet 00:00: mouth [place] 00 every 6 Medical (six) Branch hours as needed for Nausea and Vomiting (N/V). proMETHazin 2020- No [id number] 25mg Take 1 Univers e 25 mg 5-10 10-16 tablet by ity of tablet 00:00: 00:00 mouth [place] 00 :00 every 6 Medical (six) Branch hours as needed for Nausea and Vomiting (N/V). acetaminoph 2019- No [id number] 1{capsu Take 1 Univers en-caff-but 5-10 08-14 le} capsule by i ty of albital 00:00: 00:00 mouth [place] (ESGIC) per 00 :00 every 6 Medic al capsule (six) Branch hours as needed (headache) . acetaminoph 2019- No [id number] 1{capsu Take 1 Univers en-caff-but 5-10 08-14 le} capsule by i ty of albital 00:00: 00:00 mouth [place] (ESGIC) per 00 :00 every 6 Medic al capsule (six) Branch hours as needed (headache) . proMETHazin 2019- Yes [id number] 25mg Take 1 Univers e 25 mg 1-17 tablet by ity of tablet 00:00: mouth [place] 00 every 6 Medical (six) Branch hours as needed for Nausea and Vomiting (N/V). proMETHazin 2019- Yes [id number] 25mg Take 1 Univers e 25 mg 1-17 tablet by ity of tablet 00:00: mouth [place] 00 every 6 Medical (six) Branch hours as needed for Nausea and Vomiting (N/V). proMETHazin 2018-0 Yes [id number] 25mg Take 1 Univers e 25 mg 1-17 tablet by ity of tablet 00:00: mouth [place] 00 every 6 Medical (six) Branch hours as needed for Nausea and Vomiting (N/V). proMETHazin 2018-0 Yes [id number] 25mg Take 1 Univers e 25 mg 1-17 tablet by ity of tablet 00:00: mouth [place] 00 every 6 Medical (six) Branch hours as needed for Nausea and Vomiting (N/V). proMETHazin 2018-0 Yes [id number] 25mg Take 1 Univers e 25 mg 1-17 tablet by ity of tablet 00:00: mouth [place] 00 every 6 Medical (six) Branch hours as needed for Nausea and Vomiting (N/V). proMETHazin 2018-0 Yes [id number] 25mg Take 1 Univers e 25 mg 1-17 tablet by ity of tablet 00:00: mouth [place] 00 every 6 Medical (six) Branch hours as needed for Nausea and Vomiting (N/V). proMETHazin 2018- Yes [id number] 25mg Take 1 Univers e 25 mg 1-17 tablet by ity of tablet 00:00: mouth [place] 00 every 6 Medical (six) Branch hours as needed for Nausea and Vomiting (N/V). proMETHazin 0 Yes [id number] 25mg Take 1 Univers e 25 mg 1-17 tablet by ity of tablet 00:00: mouth [place] 00 every 6 Medical (six) Branch hours as needed for Nausea and Vomiting (N/V). proMETHazin 2018- Yes [id number] 25mg Take 1 Univers e 25 mg 1-17 tablet by ity of tablet 00:00: mouth [place] 00 every 6 Medical (six) Branch hours as needed for Nausea and Vomiting (N/V). proMETHazin 2019- No [id number] 25mg Take 1 Univers e 25 mg 1-17 08-14 tablet by ity of tablet 00:00: 00:00 mouth [place] 00 :00 every 6 Medical (six) Branch hours as needed for Nausea and Vomiting (N/V). proMETHazin 2019- No [id number] 25mg Take 1 Univers e 25 mg 1-17 08-14 tablet by ity of tablet 00:00: 00:00 mouth [place] 00 :00 every 6 Medical (six) Branch hours as needed for Nausea and Vomiting (N/V). No known No Univers medications ity of [facility] No known No Univers medications ity of [facility] No known No Univers medications ity of [facility] No known No Univers medications it of [facility] Immunizations Ordered Filled Immunization Date Status Comments [facility] e Immunization Name Name SARS-COV-2 COVID-19 2020-06-20 Completed Unive rsity of MODERNA VACCINE 00:00:00 [facility] [place] SARS-COV-2 COVID-19 2020-06-20 Completed Unive rsity of MODERNA VACCINE 00:00:00 [facility] [place] SARS-COV-2 COVID-19 2020-06-20 Completed Unive rsity of MODERNA VACCINE 00:00:00 [facility] [place] SARS-COV-2 COVID-19 2020-06-20 Completed Unive rsity of MODERNA VACCINE 00:00:00 [facility] SARS-COV-2 COVID-19 2020-06-20 Completed Unive rsity of MODERNA VACCINE 00:00:00 [facility] [place] SARS-COV-2 COVID-19 2020-06-20 Completed Unive rsity of MODERNA VACCINE 00:00:00 [facility] [place] SARS-COV-2 COVID-19 2020-06-20 Completed Unive rsity of MODERNA VACCINE 00:00:00 [facility] [place] SARS-COV-2 COVID-19 2020-06-20 Completed Unive rsity of MODERNA VACCINE 00:00:00 [facility] [place] SARS-COV-2 COVID-19 2020-06-20 Completed Unive rsity of MODERNA VACCINE 00:00:00 [facility] [place] SARS-COV-2 COVID-19 2020-06-20 Completed Unive rsity of MODERNA VACCINE 00:00:00 [facility] [place] SARS-COV-2 COVID-19 2020-06-20 Completed Unive rsity of MODERNA VACCINE 00:00:00 [facility] [place] SARS-COV-2 COVID-19 2020-06-20 Completed Unive rsity of MODERNA VACCINE 00:00:00 [facility] SARS-COV-2 COVID-19 2020-06-20 Completed Unive rsity of MODERNA VACCINE 00:00:00 [facility] [place] SARS-COV-2 COVID-19 2020-06-20 Completed Unive rsity [...] Completed Unive rsity of MODERNA VACCINE 00:00:00 [facility] [place] [facility] SARS-COV-2 COVID-19 2020-05-23 Completed Unive rsity of MODERNA VACCINE 00:00:00 [facility] [place] [facility] SARS-COV-2 COVID-19 2020-05-23 Completed Unive rsity of MODERNA VACCINE 00:00:00 [facility] [place] [facility] SARS-COV-2 COVID-19 2020-05-23 Completed Unive rsity of MODERNA VACCINE 00:00:00 [facility] [place] [facility] SARS-COV-2 COVID-19 2020-05-23 Completed Unive rsity of MODERNA VACCINE 00:00:00 [facility] [place] [facility] SARS-COV-2 COVID-19 2020-05-23 Completed Unive rsity of MODERNA VACCINE 00:00:00 [facility] [place] [facility] SARS-COV-2 COVID-19 2020-05-23 Completed Unive rsity of MODERNA VACCINE 00:00:00 [facility] [place] [facility] TDAP 2020-05-08 Completed University of 00:00:00 [facility] TDAP 2020-05-08 Completed University of 00:00:00 [facility] TDAP 2020-05-08 Completed University of 00:00:00 [facility] TDAP 2020-05-08 Completed University of 00:00:00 [facility] TDAP 2020-05-08 Completed University of 00:00:00 [facility] TDAP 2020-05-08 Completed University of 00:00:00 [facility] TDAP 2020-05-08 Completed University of 00:00:00 [facility] TDAP 2020-05-08 Completed University of 00:00:00 [facility] TDAP 2020-05-08 Completed University of 00:00:00 [facility] TDAP 2020-05-08 Completed University of 00:00:00 [facility] TDAP 2020-05-08 Completed University of 00:00:00 [facility] TDAP 2020-05-08 Completed University of 00:00:00 [facility] TDAP 2020-05-08 Completed University of 00:00:00 [facility] TDAP 2020-05-08 Completed University of 00:00:00 [facility] TDAP 2020-05-08 Completed University of 00:00:00 [place] [facility] TDAP 2020-05-08 Completed University of 00:00:00 [place] [facility] TDAP 2020-05-08 Completed University of 00:00:00 [place] [facility] TDAP 2020-05-08 Completed University of 00:00:00 [place] [facility] TDAP 2020-05-08 Completed University of 00:00:00 [place] [facility] TDAP 2020-05-08 Completed University of 00:00:00 [place] [facility] TDAP 2020-05-08 Completed University of 00:00:00 [place] [facility] TDAP 2020-05-08 Completed University of 00:00:00 [place] [facility] TDAP 2020-05-08 Completed University of 00:00:00 [place] [facility] TDAP 2020-05-08 Completed University of 00:00:00 [place] [facility] TDAP 2020-05-08 Completed University of 00:00:00 [place] [facility] TDAP 2020-05-08 Completed University of 00:00:00 [place] [facility] TDAP 2020-05-08 Completed University of 00:00:00 [place] [facility] TDAP 2020-05-08 Completed University of 00:00:00 [place] [facility] TDAP 2020-05-08 Completed University of 00:00:00 [place] [facility] TDAP 2020-05-08 Completed University of 00:00:00 [place] [facility] TDAP 2020-05-08 Completed University of 00:00:00 [place] [facility] TDAP 2020-05-08 Completed University of 00:00:00 [place] [facility] TDAP 2020-05-08 Completed University of 00:00:00 [place] [facility] TDAP 2020-05-08 Completed University of 00:00:00 [place] [facility] TDAP 2020-05-08 Completed University of 00:00:00 [place] [facility] TDAP 2020-05-08 Completed University of 00:00:00 [place] [facility] TDAP 2020-05-08 Completed University of 00:00:00 [place] [facility] TDAP 2020-05-08 Completed University of 00:00:00 [place] [facility] TDAP 2020-05-08 Completed University of 00:00:00 [place] [facility] TDAP 2020-05-08 Completed University of 00:00:00 [facility] TDAP 2020-05-08 Completed University of 00:00:00 [facility] TDAP 2020-05-08 Completed University of 00:00:00 [facility] MMR 2018-10-13 Completed University of 00:00:00 [place] [facility] [place] MMR 2018-10-13 Completed University of 00:00:00 [place] [facility] [place] MMR 2018-10-13 Completed University of 00:00:00 [place] [facility] [place] MMR 2018-10-13 Completed University of 00:00:00 [facility] MMR 2018-10-13 Completed University of 00:00:00 [place] [facility] [place] MMR 2018-10-13 Completed University of 00:00:00 [place] [facility] [place] MMR 2018-10-13 Completed University of 00:00:00 [place] [facility] [place] MMR 2018-10-13 Completed University of 00:00:00 [place] [facility] [place] MMR 2018-10-13 Completed University of 00:00:00 [facility] MMR 2018-10-13 Completed University of 00:00:00 [facility] MMR 2018-10-13 Completed University of 00:00:00 [facility] MMR 2018-10-13 Completed University of 00:00:00 [facility] MMR 2018-10-13 Completed University of 00:00:00 [facility] MMR 2018-10-13 Completed University of 00:00:00 [facility] MMR 2018-10-13 Completed University of 00:00:00 [facility] MMR 2018-10-13 Completed University of 00:00:00 [facility] MMR 2018-10-13 Completed University of 00:00:00 [facility] MMR 2018-10-13 Completed University of 00:00:00 [facility] MMR 2018-10-13 Completed [facility] 00:00:00 [facility] MMR 2018-10-13 Completed [facility] 00:00:00 [facility] MMR 2018-10-13 Completed [facility] 00:00:00 [facility] MMR 2018-10-13 Completed [facility] 00:00:00 [facility] MMR 2018-10-13 Completed [facility] 00:00:00 [facility] MMR 2018-10-13 Completed [facility] 00:00:00 [facility] MMR 2018-10-13 Completed [facility] 00:00:00 [facility] MMR 2018-10-13 Completed [facility] 00:00:00 [facility] MMR 2018-10-13 Completed [facility] 00:00:00 [facility] MMR 2018-10-13 Completed [facility] 00:00:00 [facility] MMR 2018-10-13 Completed [facility] 00:00:00 [facility] MMR 2018-10-13 Completed [facility] 00:00:00 [facility] MMR 2018-10-13 Completed [facility] 00:00:00 [facility] MMR 2018-10-13 Completed [facility] 00:00:00 [facility] MMR 2018-10-13 Completed [facility] 00:00:00 [facility] MMR 2018-10-13 Completed [facility] 00:00:00 [facility] MMR 2018-10-13 Completed [facility] 00:00:00 [facility] MMR 2018-10-13 Completed [facility] 00:00:00 [facility] MMR 2018-10-13 Completed [facility] 00:00:00 [facility] MMR 2018-10-13 Completed [facility] 00:00:00 [facility] MMR 2018-10-13 Completed [facility] 00[facility]00:00 [facility] MMR 2018-10-13 Completed [facility] 00[facility]00:00 [facility] MMR 2018-10-13 Completed [facility] 00:00:00 [facility] MMR 2018-10-13 Completed [facility] 00:00:00 [facility] 2018-10-13 Completed [facility] 00:00:00 [facility] MMR 2018-10-13 Completed [facility] 00[facility]00:00 [facility] MMR 2018-10-13 Completed [facility] 00:00:00 [facility] MMR 2018-10-13 Completed [facility] 00:00:00 [facility] 2018-10-13 Completed [facility] 00:00:00 [facility] 2018-10-13 Completed [facility] 00:00:00 [facility] MMR 2018-10-13 Completed [facility] 00:00:00 [facility] MMR 2018-10-13 Completed [facility] 00:00:00 [facility] MMR 2018-10-13 Completed [facility] 00:00:00 [facility] MMR 2018-10-13 Completed [facility] 00:00:00 [facility] MMR 2018-10-13 Completed [facility] 00[facility]00:00 [facility] MMR 2018-10-13 Completed [facility] 00:00:00 [facility] MMR 2018-10-13 Completed [facility] 00:00:00 [facility] MMR 2018-10-13 Completed [facility] 00:00:00 [facility] MMR 2018-10-13 Completed [facility] 00:00:00 [facility] MMR 2018-10-13 Completed [facility] 00:00:00 [facility] MMR 2018-10-13 Completed [facility] 00:00:00 [facility] MMR 2018-10-13 Completed [facility] 00:00:00 [facility] MMR 2018-10-13 Completed [facility] 00:00:00 [facility] MMR 2018-10-13 Completed [facility] 00:00:00 [facility] MMR 2018-10-13 Completed [facility] 00:00:00 [facility] MMR 2018-10-13 Completed [facility] 00:00:00 [facility] MMR 2018-10-13 Completed [facility] 00:00:00 [facility] MMR 2018-10-13 Completed [facility] 00:00:00 [facility] MMR 2018-10-13 Completed [facility] 00:00:00 [facility] MMR 2018-10-13 Completed [facility] 00:00:00 [facility] MMR 2018-10-13 Completed [facility] 00:00:00 [facility] TDAP (ADACEL) 2018-07-29 Completed [facility] of VACCINE 00:00:00 [facility] TDAP (ADACEL) 2018-07-29 Completed [facility] VACCINE 00:00:00 [facility] TDAP (ADACEL) 2018-07-29 Completed [facility] VACCINE 00:00:00 [facility] TDAP (ADACEL) 2018-07-29 Completed [facility] VACCINE 00:00:00 [facility] TDAP (ADACEL) 2018-07-29 Completed [facility] VACCINE 00:00:00 [facility] TDAP (ADACEL) 2018-07-29 Completed [facility] VACCINE 00:00:00 [facility] TDAP (ADACEL) 2018-07-29 Completed [facility] VACCINE 00:00:00 [facility] TDAP (ADACEL) 2018-07-29 Completed [facility] VACCINE 00:00:00 [facility] TDAP (ADACEL) 2018-07-29 Completed [facility] VACCINE 00:00:00 [facility] TDAP (ADACEL) 2018-07-29 Completed [facility] VACCINE 00:00:00 [facility] TDAP (ADACEL) 2018-07-29 Completed [facility] VACCINE 00:00:00 [facility] TDAP (ADACEL) 2018-07-29 Completed [facility] VACCINE 00:00:00 [facility] TDAP (ADACEL) 2018-07-29 Completed [facility] VACCINE 00:00:00 [facility] TDAP (ADACEL) 2018-07-29 Completed [facility] VACCINE 00:00:00 [facility] TDAP (ADACEL) 2018-07-29 Completed [facility] VACCINE 00:00:00 [facility] TDAP (ADACEL) 2018-07-29 Completed [facility] VACCINE 00:00:00 [facility] TDAP (ADACEL) 2018-07-29 Completed [facility] VACCINE 00:00:00 [facility] TDAP (ADACEL) 2018-07-29 Completed [facility] of VACCINE 00:00:00 [facility] TDAP (ADACEL) 2018-07-29 Completed [facility] VACCINE 00:00:00 [facility] TDAP (ADACEL) 2018-07-29 Completed [facility] VACCINE 00:00:00 [facility] TDAP (ADACEL) 2018-07-29 Completed [facility] VACCINE 00:00:00 [facility] TDAP (ADACEL) 2018-07-29 Completed [facility] of VACCINE 00:00:00 [facility] TDAP (ADACEL) 2018-07-29 Completed [facility] VACCINE 00:00:00 [facility] TDAP (ADACEL) 2018-07-29 Completed [facility] VACCINE 00:00:00 [facility] TDAP (ADACEL) 2018-07-29 Completed [facility] of VACCINE 00:00:00 [facility] TDAP (ADACEL) 2018-07-29 Completed [facility] VACCINE 00:00:00 [facility] TDAP (ADACEL) 2018-07-29 Completed [facility] VACCINE 00:00:00 [facility] TDAP (ADACEL) 2018-07-29 Completed [facility] VACCINE 00:00:00 [facility] TDAP (ADACEL) 2018-07-29 Completed [facility] VACCINE 00:00:00 [facility] TDAP (ADACEL) 2018-07-29 Completed [facility] VACCINE 00:00:00 [facility] TDAP (ADACEL) 2018-07-29 Completed [facility] VACCINE 00:00:00 [facility] TDAP (ADACEL) 2018-07-29 Completed [facility] VACCINE 00:00:00 [facility] TDAP (ADACEL) 2018-07-29 Completed [facility] VACCINE 00:00:00 [facility] TDAP (ADACEL) 2018-07-29 Completed [facility] VACCINE 00:00:00 [facility] TDAP (ADACEL) 2018-07-29 Completed [facility] VACCINE 00:00:00 [facility] TDAP (ADACEL) 2018-07-29 Completed [facility] VACCINE 00:00:00 [facility] TDAP (ADACEL) 2018-07-29 Completed [facility] VACCINE 00:00:00 [facility] TDAP (ADACEL) 2018-07-29 Completed [facility] VACCINE 00:00:00 [facility] TDAP (ADACEL) 2018-07-29 Completed [facility] VACCINE 00:00:00 [facility] TDAP (ADACEL) 2018-07-29 Completed [facility] VACCINE 00:00:00 [facility] TDAP (ADACEL) 2018-07-29 Completed [facility] VACCINE 00:00:00 [facility] TDAP (ADACEL) 2018-07-29 Completed [facility] VACCINE 00:00:00 [facility] TDAP (ADACEL) 2018-07-29 Completed [facility] VACCINE 00:00:00 [facility] TDAP (ADACEL) 2018-07-29 Completed [facility] VACCINE 00:00:00 [facility] TDAP (ADACEL) 2018-07-29 Completed [facility] VACCINE 00:00:00 [facility] TDAP (ADACEL) 2018-07-29 Completed [facility] VACCINE 00:00:00 [facility] TDAP (ADACEL) 2018-07-29 Completed [facility] VACCINE 00:00:00 [facility] TDAP (ADACEL) 2018-07-29 Completed [facility] VACCINE 00:00:00 [facility] TDAP (ADACEL) 2018-07-29 Completed [facility] VACCINE 00:00:00 [facility] TDAP (ADACEL) 2018-07-29 Completed [facility] VACCINE 00:00:00 [facility] TDAP (ADACEL) 2018-07-29 Completed [facility] VACCINE 00:00:00 [facility] TDAP (ADACEL) 2018-07-29 Completed [facility] VACCINE 00:00:00 [facility] TDAP (ADACEL) 2018-07-29 Completed [facility] VACCINE 00:00:00 [facility] TDAP (ADACEL) 2018-07-29 Completed [facility] VACCINE 00:00:00 [facility] TDAP (ADACEL) 2018-07-29 Completed [facility] VACCINE 00:00:00 [facility] TDAP (ADACEL) 2018-07-29 Completed [facility] VACCINE 00:00:00 [facility] TDAP (ADACEL) 2018-07-29 Completed [facility] VACCINE 00:00:00 [facility] TDAP (ADACEL) 2018-07-29 Completed [facility] VACCINE 00:00:00 [facility] TDAP (ADACEL) 2018-07-29 Completed [facility] VACCINE 00:00:00 [facility] TDAP (ADACEL) 2018-07-29 Completed [facility] VACCINE 00:00:00 [facility] TDAP (ADACEL) 2018-07-29 Completed [facility] VACCINE 00:00:00 [facility] TDAP (ADACEL) 2018-07-29 Completed [facility] VACCINE 00:00:00 [facility] TDAP (ADACEL) 2018-07-29 Completed [facility] VACCINE 00:00:00 [facility] TDAP (ADACEL) 2018-07-29 Completed [facility] VACCINE 00:00:00 [facility] TDAP (ADACEL) 2018-07-29 Completed [facility] VACCINE 00:00:00 [facility] TDAP (ADACEL) 2018-07-29 Completed [facility] VACCINE 00:00:00 [facility] TDAP (ADACEL) 2018-07-29 Completed [facility] VACCINE 00:00:00 [facility] TDAP (ADACEL) 2018-07-29 Completed [facility] VACCINE 00:00:00 [facility] TDAP (ADACEL) 2018-07-29 Completed [facility] VACCINE 00:00:00 [facility] TDAP (ADACEL) 2018-07-29 Completed [facility] VACCINE 00:00:00 [facility] TDAP (ADACEL) 2018-07-29 Completed [facility] VACCINE 00:00:00 [facility] TDAP (ADACEL) 2018-07-29 Completed [facility] VACCINE 00:00:00 [facility] TDAP (ADACEL) 2018-07-29 Completed [facility] VACCINE 00:00:00 [facility] TDAP (ADACEL) 2018-07-29 Completed [facility] VACCINE 00:00:00 [facility] TDAP (ADACEL) 2018-07-29 Completed [facility] VACCINE 00:00:00 [facility] TDAP (ADACEL) 2018-07-29 Completed [facility] VACCINE 00:00:00 [facility] TDAP (ADACEL) 2018-07-29 Completed [facility] VACCINE 00:00:00 [facility] TDAP (ADACEL) 2018-07-29 Completed [facility] VACCINE 00:00:00 [facility] TDAP (ADACEL) 2018-07-29 Completed [facility] VACCINE 00:00:00 [facility] TDAP (ADACEL) 2018-07-29 Completed [facility] VACCINE 00:00:00 [facility] TDAP (ADACEL) 2018-07-29 Completed [facility] VACCINE 00:00:00 [facility] TDAP (ADACEL) 2018-07-29 Completed [facility] VACCINE 00:00:00 [facility] TDAP 2009-02-17 Completed [facility] 00:00:00 [facility] TDAP 2009-02-17 Completed [facility] 00:00:00 [facility] TDAP 2009-02-17 Completed [facility] 00:00:00 [facility] TDAP 2009-02-17 Completed [facility] 00:00:00 [facility] TDAP 2009-02-17 Completed [facility] 00:00:00 [facility] TDAP 2009-02-17 Completed [facility] 00:00:00 [facility] TDAP 2009-02-17 Completed [facility] 00:00:00 [facility] TDAP 2009-02-17 Completed [facility] 00:00:00 [facility] TDAP 2009-02-17 Completed [facility] 00:00:00 [facility] TDAP 2009-02-17 Completed [facility] 00:00:00 [facility] TDAP 2009-02-17 Completed [facility] 00:00:00 [facility] TDAP 2009-02-17 Completed [facility] 00:00:00 [facility] TDAP 2009-02-17 Completed [facility] 00:00:00 [facility] TDAP 2009-02-17 Completed [facility] 00:00:00 [facility] TDAP 2009-02-17 Completed [facility] 00:00:00 [facility] TDAP 2009-02-17 Completed [facility] 00:00:00 [facility] TDAP 2009-02-17 Completed [facility] 00:00:00 [facility] TDAP 2009-02-17 Completed [facility] 00:00:00 [facility] TDAP 2009-02-17 Completed [facility] 00:00:00 [facility] TDAP 2009-02-17 Completed [facility] 00:00:00 [facility] TDAP 2009-02-17 Completed [facility] 00:00:00 [facility] TDAP 2009-02-17 Completed [facility] 00:00:00 [facility] TDAP 2009-02-17 Completed [facility] 00:00:00 [facility] TDAP 2009-02-17 Completed [facility] 00:00:00 [facility] TDAP 2009-02-17 Completed [facility] 00:00:00 [facility] TDAP 2009-02-17 Completed [facility] 00:00:00 [facility] TDAP 2009-02-17 Completed [facility] 00:00:00 [facility] TDAP 2009-02-17 Completed [facility] 00:00:00 [facility] TDAP 2009-02-17 Completed [facility] 00:00:00 [facility] TDAP 2009-02-17 Completed [facility] 00:00:00 [facility] TDAP 2009-02-17 Completed [facility] 00:00:00 [facility] TDAP 2009-02-17 Completed [facility] 00:00:00 [facility] TDAP 2009-02-17 Completed [facility] 00:00:00 [facility] TDAP 2009-02-17 Completed [facility] 00:00:00 [facility] Tdap 2009-02-17 Completed [facility] 00:00:00 [facility] Tdap 2009-02-17 Completed [facility] 00:00:00 [facility] Tdap 2009-02-17 Completed [facility] 00:00:00 [facility] Tdap 2009-02-17 Completed [facility] 00:00:00 [facility] Tdap 2009-02-17 Completed [facility] 00:00:00 [facility] Tdap 2009-02-17 Completed [facility] 00:00:00 [facility] Tdap 2009-02-17 Completed [facility] 00:00:00 [facility] Tdap 2009-02-17 Completed [facility] 00:00:00 [facility] Tdap 2009-02-17 Completed [facility] 00:00:00 [facility] Tdap 2009-02-17 Completed [facility] 00:00:00 [facility] Tdap 2009-02-17 Completed [facility] 00:00:00 [facility] Tdap 2009-02-17 Completed [facility] 00:00:00 [facility] Tdap 2009-02-17 Completed [facility] 00:00:00 [facility] Tdap 2009-02-17 Completed [facility] 00:00:00 [facility] Tdap 2009-02-17 Completed [facility] 00:00:00 [facility] Tdap 2009-02-17 Completed [facility] 00:00:00 [facility] Tdap 2009-02-17 Completed [facility] 00:00:00 [facility] Tdap 2009-02-17 Completed [facility] 00:00:00 [facility] Tdap 2009-02-17 Completed [facility] 00:00:00 [facility] Tdap 2009-02-17 Completed [facility] 00:00:00 [facility] Tdap 2009-02-17 Completed [facility] 00:00:00 [facility] TDAP 2009-02-17 Completed [facility] 00:00:00 [facility] TDAP 2009-02-17 Completed [facility] 00:00:00 [facility] TDAP 2009-02-17 Completed [facility] 00:00:00 [facility] TDAP 2009-02-17 Completed [facility] 00:00:00 [facility] TDAP 2009-02-17 Completed [facility] 00:00:00 [facility] TDAP 2009-02-17 Completed [facility] 00:00:00 [facility] TDAP 2009-02-17 Completed [facility] 00:00:00 [facility] TDAP 2009-02-17 Completed [facility] 00:00:00 [facility] TDAP 2009-02-17 Completed [facility] 00:00:00 [facility] TDAP 2009-02-17 Completed [facility] 00:00:00 [facility] TDAP 2009-02-17 Completed [facility] 00:00:00 [facility] TDAP 2009-02-17 Completed [facility] 00:00:00 [facility] TDAP 2009-02-17 Completed [facility] 00:00:00 [facility] TDAP 2009-02-17 Completed [facility] 00:00:00 [facility] TDAP 2009-02-17 Completed [facility] 00:00:00 [facility] TDAP 2009-02-17 Completed [facility] 00:00:00 [facility] TDAP 2009-02-17 Completed [facility] 00:00:00 [facility] TDAP 2009-02-17 Completed [facility] 00:00:00 [facility] TDAP 2009-02-17 Completed [facility] 00:00:00 [facility] TDAP 2009-02-17 Completed [facility] 00:00:00 [facility] TDAP 2009-02-17 Completed [facility] 00:00:00 [facility] TDAP 2009-02-17 Completed [facility] 00:00:00 [facility] TDAP 2009-02-17 Completed [facility] 00:00:00 [facility] TDAP 2009-02-17 Completed [facility] 00:00:00 [facility] TDAP 2009-02-17 Completed [facility] 00:00:00 [facility] TDAP 2009-02-17 Completed [facility] 00:00:00 [facility] TDAP 2009-02-17 Completed [facility] 00:00:00 [facility] Vital Signs Vital Name Observation Time Observation Value Comments Source Systolic blood 2020-08-30 13:38:00 125 mm[Hg] [facility] Diastolic blood 2020-08-30 13:38:00 80 mm[Hg] [facility] Heart rate 2020-08-30 13:38:00 67 /min [facility] Body temperature 2020-08-30 13:38:00 36.5 Anel [facility] Respiratory rate 2020-08-30 13:38:00 16 /min [facility] Body height 2020-08-30 13:38:00 170.2 cm [facility] Body weight 2020-08-30 13:38:00 103.023 kg [facility] BMI 2020-08-30 13:38:00 35.57 kg/m2 [facility] Systolic blood 2020-08-07 14:31:00 118 mm[Hg] [facility] Diastolic blood 2020-08-07 14:31:00 79 mm[Hg] [facility] Heart rate 2020-08-07 14:31:00 60 /min [facility] Body temperature 2020-08-07 14:31:00 36.83 Anel [facility] Respiratory rate 2020-08-07 14:31:00 16 /min [facility] Body height 2020-08-07 14:31:00 170.2 cm [facility] Body weight 2020-08-07 14:31:00 101.379 kg [facility] BMI 2020-08-07 14:31:00 35.01 kg/m2 [facility] Systolic blood 2020-07-16 12:54:00 124 mm[Hg] [facility] Diastolic blood 2020-07-16 12:54:00 74 mm[Hg] [facility] Heart rate 2020-07-16 12:54:00 67 /min [facility] Body temperature 2020-07-16 12:54:00 36.22 Anel [facility] Respiratory rate 2020-07-16 12:54:00 18 /min [facility] Oxygen saturation in 2020-07-16 12:54:00 97 /min [facility] Arterial blood by [facility] Pulse oximetry [facility] Systolic blood 2020-07-15 15:20:00 120 mm[Hg] [facility] pressure [facility] Diastolic blood 2020-07-15 15:20:00 53 mm[Hg] [facility] pressure [facility] Heart rate 2020-07-15 15:20:00 85 /min [facility] Respiratory rate 2020-07-15 15:20:00 18 /min [facility] Oxygen saturation in 2020-07-15 15:20:00 100 /min [facility] Arterial blood by [facility] Body temperature 2020-07-15 14:20:00 36.72 Anel [facility] Systolic blood 2020-07-10 19:56:00 130 mm[Hg] [facility] Diastolic blood 2020-07-10 19:56:00 81 mm[Hg] [facility] pressure [facility] Heart rate 2020-07-10 19:56:00 87 /min [facility] Body temperature 2020-07-10 19:56:00 36.78 Anel [facility] Respiratory rate 2020-07-10 19:56:00 16 /min [facility] Body height 2020-07-10 19:56:00 170.2 cm [facility] Body weight 2020-07-10 19:56:00 111.613 kg [facility] BMI 2020-07-10 19:56:00 38.54 kg/m2 [facility] Systolic blood 2020-07-06 19:35:00 132 mm[Hg] [facility] pressure [facility] Diastolic blood 2020-07-06 19:35:00 72 mm[Hg] [facility] pressure [facility] Heart rate 2020-07-06 19:35:00 98 /min [facility] Body temperature 2020-07-06 19:35:00 36.78 Anel [facility] Respiratory rate 2020-07-06 19:35:00 16 /min [facility] Body height 2020-07-06 19:35:00 170.2 cm [facility] Body weight 2020-07-06 19:35:00 110.224 kg [facility] BMI 2020-07-06 19:35:00 38.06 kg/m2 [facility] Systolic blood 2020-07-03 19:46:00 125 mm[Hg] [facility] Diastolic blood 2020-07-03 19:46:00 79 mm[Hg] [facility] Heart rate 2020-07-03 19:46:00 99 /min [facility] Body temperature 2020-07-03 19:46:00 36.89 Anel [facility] Respiratory rate 2020-07-03 19:46:00 16 /min [facility] Body height 2020-07-03 19:46:00 170.2 cm [facility] Body weight 2020-07-03 19:46:00 110.309 kg [facility] BMI 2020-07-03 19:46:00 38.09 kg/m2 [facility] Systolic blood 2020-06-29 18:35:00 135 mm[Hg] [facility] Diastolic blood 2020-06-29 18:35:00 71 mm[Hg] [facility] Heart rate 2020-06-29 18:35:00 94 /min [facility] Body temperature 2020-06-29 18:35:00 36.44 Anel [facility] Respiratory rate 2020-06-29 18:35:00 16 /min [facility] Body height 2020-06-29 18:35:00 170.2 cm [facility] Body weight 2020-06-29 18:35:00 109.487 kg [facility] BMI 2020-06-29 18:35:00 37.80 kg/m2 [facility] Systolic blood 2020-06-26 19:04:00 137 mm[Hg] [facility] Diastolic blood 2020-06-26 19:04:00 79 mm[Hg] [facility] Heart rate 2020-06-26 19:04:00 97 /min [facility] Body temperature 2020-06-26 19:04:00 36.89 Anel [facility] Respiratory rate 2020-06-26 19:04:00 16 /min [facility] Body height 2020-06-26 19:04:00 170.2 cm [facility] Body weight 2020-06-26 19:04:00 110.252 kg [facility] BMI 2020-06-26 19:04:00 38.07 kg/m2 [facility] Systolic blood 2020-06-22 14:09:00 127 mm[Hg] [facility] Diastolic blood 2020-06-22 14:09:00 72 mm[Hg] [facility] Heart rate 2020-06-22 14:09:00 94 /min [facility] Body temperature 2020-06-22 14:09:00 36.67 Anel [facility] Respiratory rate 2020-06-22 14:09:00 16 /min [facility] Body height 2020-06-22 14:09:00 170.2 cm [facility] Body weight 2020-06-22 14:09:00 108.977 kg [facility] BMI 2020-06-22 14:09:00 37.63 kg/m2 [facility] Heart rate 2020-06-13 23:55:00 105 /min [facility] Oxygen saturation in 2020-06-13 23:55:00 100 /min [facility] Arterial blood by [facility] Pulse oximetry Branch Systolic blood 2020-06-13 23:30:00 138 mm[Hg] [facility] Diastolic blood 2020-06-13 23:30:00 76 mm[Hg] [facility] Body temperature 2020-06-13 23:17:00 36.89 Anel [facility] Respiratory rate 2020-06-13 23:17:00 18 /min [facility] Body height 2020-06-13 23:17:00 170.2 cm [facility] Body weight 2020-06-13 23:17:00 108.773 kg [facility] BMI 2020-06-13 23:17:00 37.56 kg/m2 [facility] Systolic blood 2020-06-06 00:45:00 146 mm[Hg] [facility] Diastolic blood 2020-06-06 00:45:00 84 mm[Hg] [facility] Heart rate 2020-06-06 00:45:00 99 /min [facility] Oxygen saturation in 2020-06-06 00:45:00 100 /min [facility] Arterial blood by [facility] Pulse oximetry Branch Body temperature 2020-06-05 23:36:00 37.06 Anel [facility] Respiratory rate 2020-06-05 23:36:00 18 /min [facility] Body height 2020-06-05 23:36:00 170.2 cm [facility] Body weight 2020-06-05 23:36:00 109.045 kg [facility] BMI 2020-06-05 23:36:00 37.65 kg/m2 [facility] Heart rate 2020-05-31 02:00:00 99 /min [facility] Oxygen saturation in 2020-05-31 01:45:00 99 /min [facility] Arterial blood by [facility] Pulse oximetry Branch Systolic blood 2020-05-31 01:15:00 134 mm[Hg] [facility] Diastolic blood 2020-05-31 01:15:00 70 mm[Hg] [facility] Body temperature 2020-05-31 01:15:00 36.83 Anel [facility] Respiratory rate 2020-05-31 01:15:00 20 /min [facility] Body height 2020-05-31 01:15:00 170.2 cm [facility] Body weight 2020-05-31 01:15:00 108.863 kg [facility] BMI 2020-05-31 01:15:00 37.59 kg/m2 [facility] Systolic blood 2020-05-22 15:40:00 124 mm[Hg] [facility] Diastolic blood 2020-05-22 15:40:00 72 mm[Hg] [facility] Heart rate 2020-05-22 15:40:00 90 /min [facility] Body temperature 2020-05-22 15:40:00 36.89 Anel [facility] Respiratory rate 2020-05-22 15:40:00 16 /min [facility] Body height 2020-05-22 15:40:00 170.2 cm [facility] Body weight 2020-05-22 15:40:00 107.134 kg [facility] BMI 2020-05-22 15:40:00 36.99 kg/m2 [facility] Systolic blood 2020-05-08 14:33:00 127 mm[Hg] [facility] Diastolic blood 2020-05-08 14:33:00 74 mm[Hg] [facility] Heart rate 2020-05-08 14:32:00 99 /min [facility] Body temperature 2020-05-08 14:32:00 36.61 Anel [facility] Respiratory rate 2020-05-08 14:32:00 16 /min [facility] Body height 2020-05-08 14:32:00 170.2 cm [facility] Body weight 2020-05-08 14:32:00 107.106 kg [facility] BMI 2020-05-08 14:32:00 36.98 kg/m2 [facility] Systolic blood 2020-04-25 15:50:00 139 mm[Hg] [facility] Diastolic blood 2020-04-25 15:50:00 83 mm[Hg] [facility] Heart rate 2020-04-25 15:06:00 111 /min [facility] Body temperature 2020-04-25 15:06:00 36.72 Anel [facility] Respiratory rate 2020-04-25 15:06:00 16 /min [facility] Body height 2020-04-25 15:06:00 170.2 cm [facility] Body weight 2020-04-25 15:06:00 106.17 kg [facility] BMI 2020-04-25 15:06:00 36.66 kg/m2 [facility] Systolic blood 2020-04-20 16:25:00 123 mm[Hg] [facility] Diastolic blood 2020-04-20 16:25:00 68 mm[Hg] [facility] Heart rate 2020-04-20 16:25:00 88 /min [facility] Body temperature 2020-04-20 16:25:00 36.61 Anel [facility] Respiratory rate 2020-04-20 16:25:00 16 /min [facility] Body height 2020-04-20 16:25:00 170.2 cm [facility] Body weight 2020-04-20 16:25:00 105.858 kg [facility] BMI 2020-04-20 16:25:00 36.55 kg/m2 [facility] Systolic blood 2020-02-29 19:10:00 134 mm[Hg] [facility] Diastolic blood 2020-02-29 19:10:00 80 mm[Hg] [facility] Heart rate 2020-02-29 19:10:00 100 /min [facility] Body temperature 2020-02-29 19:10:00 36.72 Anel [facility] Respiratory rate 2020-02-29 19:10:00 16 /min [facility] Body height 2020-02-29 19:10:00 170.2 cm [facility] Body weight 2020-02-29 19:10:00 100.018 kg [facility] BMI 2020-02-29 19:10:00 34.54 kg/m2 [facility] Systolic blood 2020-02-01 19:50:00 138 mm[Hg] [facility] Diastolic blood 2020-02-01 19:50:00 73 mm[Hg] [facility] Heart rate 2020-02-01 19:50:00 86 /min [facility] Body temperature 2020-02-01 19:50:00 36.83 Anel [facility] Respiratory rate 2020-02-01 19:50:00 16 /min [facility] Body height 2020-02-01 19:50:00 170.2 cm [facility] Body weight 2020-02-01 19:50:00 98.544 kg [facility] BMI 2020-02-01 19:50:00 34.03 kg/m2 [facility] Systolic blood 2020-01-04 20:39:00 135 mm[Hg] [facility] Diastolic blood 2020-01-04 20:39:00 75 mm[Hg] [facility] Heart rate 2020-01-04 20:38:00 94 /min [facility] Body temperature 2020-01-04 20:38:00 36.5 Anel [facility] Respiratory rate 2020-01-04 20:38:00 16 /min [facility] Body height 2020-01-04 20:38:00 170.2 cm [facility] Body weight 2020-01-04 20:38:00 99.139 kg [facility] BMI 2020-01-04 20:38:00 34.23 kg/m2 [facility] Systolic blood 2019-12-03 20:12:00 128 mm[Hg] [facility] Diastolic blood 2019-12-03 20:12:00 68 mm[Hg] [facility] Heart rate 2019-12-03 19:16:00 90 /min [facility] Body temperature 2019-12-03 19:16:00 36.61 Anel [facility] Respiratory rate 2019-12-03 19:16:00 18 /min [facility] Body height 2019-12-03 19:16:00 170.2 cm [facility] Body weight 2019-12-03 19:16:00 102.059 kg [facility] BMI 2019-12-03 19:16:00 35.24 kg/m2 [facility] Oxygen saturation in 2019-12-03 19:16:00 100 /min [facility] Arterial blood by [facility] Pulse oximetry Branch Systolic blood 2019-03-12 20:41:00 132 mm[Hg] [facility] Diastolic blood 2019-03-12 20:41:00 73 mm[Hg] [facility] Heart rate 2019-03-12 20:41:00 95 /min [facility] Body temperature 2019-03-12 20:41:00 36.78 Anel [facility] Respiratory rate 2019-03-12 20:41:00 16 /min [facility] Body height 2019-03-12 20:41:00 170.2 cm [facility] Body weight 2019-03-12 20:41:00 89.841 kg [facility] BMI 2019-03-12 20:41:00 31.02 kg/m2 [facility] Systolic blood 2019-03-12 20:41:00 132 mm[Hg] [facility] Diastolic blood 2019-03-12 20:41:00 73 mm[Hg] [facility] rs[facility] pressure [facility] Heart rate 2019-03-12 20:41:00 95 /min [facility] Body temperature 2019-03-12 20:41:00 36.78 Anel [facility] Respiratory rate 2019-03-12 20:41:00 16 /min [facility] Body height 2019-03-12 20:41:00 170.2 cm [facility] Body weight 2019-03-12 20:41:00 89.841 kg [facility] BMI 2019-03-12 20:41:00 31.02 kg/m2 [facility] Systolic blood 2018-11-02 14:26:00 113 mm[Hg] [facility] Diastolic blood 2018-11-02 14:26:00 67 mm[Hg] [facility]ive rsity of pressure [facility] Heart rate 2018-11-02 14:26:00 50 /min [facility] Body temperature 2018-11-02 14:26:00 36.61 Anel [facility] Respiratory rate 2018-11-02 14:26:00 16 /min [facility] Body height 2018-11-02 14:26:00 170.2 cm [facility] Body weight 2018-11-02 14:26:00 86.779 kg [facility] BMI 2018-11-02 14:26:00 29.96 kg/m2 [facility] Systolic blood 2018-10-13 13:00:00 125 mm[Hg] [facility] pressure [facility] Diastolic blood 2018-10-13 13:00:00 68 mm[Hg] Unive rsity of pressure [facility] Heart rate 2018-10-13 13:00:00 69 /min [facility] Body temperature 2018-10-13 13:00:00 36.83 Anel [facility] Respiratory rate 2018-10-13 13:00:00 18 /min [facility] Oxygen saturation in 2018-10-13 13:00:00 98 /min [facility] Arterial blood by [facility] Pulse oximetry Branch Body height 2018-10-11 14:30:00 170.2 cm [facility] Body weight 2018-10-11 14:30:00 96.48 kg [facility] BMI 2018-10-11 14:30:00 33.31 kg/m2 [facility] Systolic blood 2018-10-07 16:39:00 129 mm[Hg] [facility] Diastolic blood 2018-10-07 16:39:00 71 mm[Hg] [facility] Heart rate 2018-10-07 16:39:00 86 /min [facility] Body temperature 2018-10-07 16:39:00 36.67 Anel [facility] Respiratory rate 2018-10-07 16:39:00 16 /min [facility] Body height 2018-10-07 16:39:00 170.2 cm [facility] Body weight 2018-10-07 16:39:00 96.673 kg [facility] BMI 2018-10-07 16:39:00 33.38 kg/m2 [facility] Systolic blood 2018-09-30 15:59:00 125 mm[Hg] [facility] Diastolic blood 2018-09-30 15:59:00 70 mm[Hg] [facility] Heart rate 2018-09-30 15:59:00 82 /min [facility] Body temperature 2018-09-30 15:59:00 36.17 Anel [facility] Respiratory rate 2018-09-30 15:59:00 16 /min [facility] Body height 2018-09-30 15:59:00 170.2 cm [facility] Body weight 2018-09-30 15:59:00 97.58 kg [facility] BMI 2018-09-30 15:59:00 33.69 kg/m2 [facility] Systolic blood 2018-09-28 17:05:00 123 mm[Hg] [facility] Diastolic blood 2018-09-28 17:05:00 75 mm[Hg] [facility] Heart rate 2018-09-28 17:05:00 106 /min [facility] Respiratory rate 2018-09-28 17:05:00 18 /min [facility] Body height 2018-09-28 17:05:00 170.2 cm [facility] Body weight 2018-09-28 17:05:00 95.618 kg [facility] BMI 2018-09-28 17:05:00 33.02 kg/m2 [facility] Oxygen saturation in 2018-09-28 17:05:00 98 /min [facility] Arterial blood by [facility] Pulse oximetry Branch Systolic blood 2018-09-23 14:12:00 132 mm[Hg] Univer [facility]ity of pressure [facility] Diastolic blood 2018-09-23 14:12:00 73 [facility]Hg[facility] 2018-09-23 14:12:00 99 /min [facility] Body temperature 2018-09-23 14:12:00 36.39 Anel [facility] 2018-09-23 14:12:00 16 /min [facility] Body height 2018-09-23 14:12:00 170.2 cm [facility] Body weight 2018-09-23 14:12:00 95.482 kg [facility] BMI 2018-09-23 14:12:00 32.97 kg/m2 [facility] Procedures Procedure Date / Time Performing Clinician Source Performed CBC WITH DIFF 2020-07-16 10:20:00 [place] [facility] CBC WITH DIFF 2020-07-16 10:20:00 Mike [facility] TUBAL LIGATION 2020-07-15 22:29:00 Kate Alexandre [facility] VENOUS CORD GAS 2020-07-15 14:21:00 Evelyn San [facility] VENOUS CORD GAS 2020-07-15 14:21:00 Evelyn San [facility] POCT GLUCOSE (AUTOMATED) 2020-07-15 11:56:00 [place], [facility] POCT GLUCOSE (AUTOMATED) 2020-07-15 11:56:00 O[place], [facility] POCT GLUCOSE (AUTOMATED) 2020-07-15 08:10:00 [facility] 2020-07-15 08:10:00 OmedebraNaomi [facility] URINALYSIS 2020-07-15 06:21:00 Evelyn San [facility] PROTEIN CREAT RATIO URINE 2020-07-15 06:21:00 [facility] 2020-07-15 06:21:00 Evelyn San [facility] PROTEIN CREAT RATIO URINE 2020-07-15 06:21:00 [facility] 2020-07-15 04:48:00 [place] Gabrielealie [facility] POCT GLUCOSE (AUTOMATED) 2020-07-15 04:48:00 OmereNaomi [facility] HB ABO GROUPING 2020-07-15 04:42:00 Evelyn San [facility] RHO (D) IMMUNE GLOBULIN 2020-07-15 04:42[facility] 2020-07-15 04:42:00 Evelyn San [facility] RHO (D) IMMUNE GLOBULIN 2020-07-15 04:42:00 [facility] SGOT (ASPARTATE AMINO 2020-07-15 04:40:00 Evelyn San [facility]) Medical Branch CREATININE 2020-07-15 04:40:00 Evelyn San [facility] ALANINE AMINO 2020-07-15 04:40:00 Evelyn San [facility] TRANSFERASE(SGPT Medical Branch LACTATE DEHYDROGENASE 2020-07-15 04:40:00 Evelyn San [facility] URIC ACID 2020-07-15 04:40:00 Evelyn San [facility] CBC WITH DIFF 2020-07-15 04:40:00 Evelyn San [facility] HEPATITIS B SURFACE 2020-07-15 04:40:00 Evelyn San [facility] ANTIGEN [facility] HIV 1/2 AG-AB WITH REFLEX 2020-07-15 04:40:00 Evelyn San [facility] GALV ONLY - SYPHILIS 2020-07-15 04:40:00 Evelyn San [facility] IGG/IGM [facility] Branch SGOT (ASPARTATE AMINO 2020-07-15 04:40:00 Evelyn San [facility] TRANSFER) Medical Branch CREATININE 2020-07-15 04:40:00 Evelyn San [facility] ALANINE AMINO 2020-07-15 04:40:00 Evelyn San [facility] TRANSFERASE(SGPT [facility] LACTATE DEHYDROGENASE 2020-07-15 04:40:00 Evelyn San [facility] URIC ACID 2020-07-15 04:40:00 Evelyn San [facility] CBC WITH DIFF 2020-07-15 04:40:00 Evelyn San [facility] HEPATITIS B SURFACE 2020-07-15 04:40:00 Evelny San [facility] ANTIGEN [facility] HIV 1/2 AG-AB WITH REFLEX 2020-07-15 04:40:00 Evelyn San [facility] GALV ONLY - SYPHILIS 2020-07-15 04:40:00 Evelyn San [facility] IGG/IGM [facility] COVID-19 (ID NOW RAPID 2020-07-15 02:48:00 Omedebra [facility] TESTING) [facility] COVID-19 (ID NOW RAPID 2020-07-15 02:48:00 [place] [facility] TESTING) [facility] LAB ONLY COVID 2020-07-15 02:48:00 Libby [facility] INTERPRETATION [facility] NON-STRESS TEST 2020-07-10 21:44:58 Lizette Lugo [facility] POCT URINALYSIS 2020-07-10 19:59:00 Lizette Lugo [facility] HOSPITAL ADMISSION 2020-07-08 05:01:00 Doctor Unassigned, [facility] HOSPITAL ADMISSION 2020-07-08 05:01:00 Doctor Unassigned, [facility] NON-STRESS TEST 2020-07-07 03:07:40 Mary Grace Nava [facility] POCT URINALYSIS 2020-07-06 19:43:00 Lizette Lugo [facility] PATIENT QUESTIONNAIRE 2020-07-06 05:01:00 Doctor Unassigned, [facility] PATIENT QUESTIONNAIRE 2020-07-06 05:01:00 Doctor Unassigned, [facility] NON-STRESS TEST 2020-07-03 20:39:49 Zeyad Lugoilola C U [facility] POCT URINALYSIS 2020-07-03 19:47:00 AkinZeyad ruizilola C [facility] NON-STRESS TEST 2020-06-30 01:17:10 Mary Grace Nava [facility] URINE CULTURE 2020-06-29 19:17:00 Mary Grace Nava [facility] POCT URINALYSIS 2020-06-29 18:38:00 Akinsipatricia Lizette C [facility] NON-STRESS TEST 2020-06-26 20:00:14 AkinZeyad ruizilola C U [facility] POCT URINALYSIS 2020-06-26 19:07:00 Akinsipatricia Lizette C [facility] POCT URINALYSIS 2020-06-22 14:10:00 Akinsipatricia Lizette C [facility] COVID-19 (ID NOW RAPID 2020-06-13 23:40:00 Jaclyn Duval [facility] POCT GLUCOSE (AUTOMATED) 2020-06-13 23:39:00 Jaclyn [facility]val [facility] NOTICE OF PRIVACY 2020-06-13 23:05:21 Doctor Mars [facility] CONSENT/REFUSAL FOR 2020-06-13 23:05:08 Doctor Unassrivka, [facility] DIAGNOSIS AND TREATMENT [facility] CONSENT/REFUSAL FOR 2020-06-05 23:13:27 Doctor Unassrivka, [facility] DIAGNOSIS AND TREATMENT [facility] ASSIGNMENT OF BENEFITS 2020-05-31 00:57:40 Doctor Unassigned, [facility] CONSENT/REFUSAL FOR 2020-05-31 00:57:15 Doctor Unassrivka, [facility] DIAGNOSIS AND TREATMENT [facility] POCT URINALYSIS 2020-05-22 15:41:00 Lizette Lugo [facility] PATIENT QUESTIONNAIRE 2020-05-22 05:01:00 Doctor Mars, [facility] POCT URINALYSIS 2020-05-08 14:47:00 Lizette Lugo [facility] TDAP VACCINE, >11 YRS, IM 2020-05-08 14:31:42 Lizette Lugo [facility] STERILIZATION CONSENT 2020-05-08 05:01:00 Doctor Mars, [facility] FORM [facility] POCT URINALYSIS 2020-04-20 16:26:00 Lizette Lugo [facility] POCT URINALYSIS 2020-02-29 19:14:00 Lizette Lugo [facility] CONSENT FOR SERUM MARKER 2020-02-29 06:01:00 Doctor Mars, [facility] SCREENING [facility] POCT URINALYSIS 2020-02-01 20:26:00 Dayday Graham [facility] FIRST TRIMESTER 2020-01-26 19:45:00 Dayday Graham [facility] ULTRASOUND [facility] HB ABO GROUPING 2019-12-03 20:30:00 Mickey Paul [facility] GLUCOSE 1 HOUR POST 2019-12-03 20:29:00 Paul Arevalo [facility] PRANDIAL [facility] THYROID STIMULATING 2019-12-03 20:29:00 Paul Arevalo [facility] HORMONE [facility] COMP. METABOLIC PANEL 2019-12-03 20:29:00 Mickey Paul [facility] ([id number]) [facility] [place] CBC WITH DIFF 2019-12-03 20:29:00 Mickey [facility] HEPATITIS B SURFACE 2019-12-03 20:29:00 Paul Arevalo [facility] URINE CULTURE 2019-12-03 20:29:00 Mickey [facility] HIV 1/2 AG-AB WITH REFLEX 2019-12-03 20:29:00 [facility] SARS-[facility]2 IGG 2019-12-03 20:29:00 Mickey [facility] POCT URINALYSIS 2019-12-03 00:00:00 Mickey [facility] POCT TEST 2019-12-03 00:00:00 Paul Arevalo [facility] CONSENT/REFUSAL FOR 2019-11-29 02:29:26 Doctor Unameet, [facility] DIAGNOSIS AND TREATMENT [facility] CONSENT/REFUSAL FOR 2019-03-12 20:07:12 Doctor Mars, [facility] DIAGNOSIS AND TREATMENT [facility] ASSIGNMENT OF BENEFITS 2019-03-12 20:06:52 Doctor Unameet, Un [facility] CBC WITH DIFFERENTIAL 2018-10-13 09:05:00 Evelyn San [facility] VENOUS CORD GAS 2018-10-12 05:36:00 [facility] POCT GLUCOSE (AUTOMATED) 2018-10-12 02:07:00 Altagracia Blandon Un [facility] HEPATITIS B SURFACE 2018-10-11 16:54[facility] TYPE AND SCREEN 2018-10-11 16:54:00 [facility] GALV ONLY - SYPHILIS 2018-10-11 16:54:[facility] IGG/IGM [facility] HOSPITAL ADMISSION 2018-10-11 05:01:00 Doctor Mars, [facility] POCT URINALYSIS W/O 2018-10-07 16:43:00 Lizette Lugo [facility] [place] [facility] POCT URINALYSIS GLUCOSE & 2018-09-30 16:00:00 Dayday Graham [facility] PROTEIN Medical Branch CONSENT/REFUSAL FOR 2018-09-28 05:01:00 Doctor Unassigned, [facility] DIAGNOSIS AND TREATMENT [place] [facility] POCT URINALYSIS W/O 2018-09-23 14:15:00 Lizette Lugo [facility] [place] Plan of Care Planned Activity Planned Date Details Comments Source Future Scheduled 2030-05-08 DTaP,Tdap,and Td Univers ity of Test 00:00:00 Vaccines (4 - Td) [facility] [code = Branch DTaP,Tdap,and Td Vaccines (4 - Td)] Future Scheduled 2021-04-29 HPV VACCINES (1 - Postponed from Univ ersity of Test 00:00:00 2-dose series) 06/18/2006 [facility] [code = HPV ( or Branch VACCINES (1 - ) 2-dose series)] Future Scheduled 2021-02-20 Screening for University of Test 00:00:00 malignant neoplasm [facility] of cervix Branch (procedure) [code = 253213610] Future Scheduled 2020-12-02 Depression [facility] of Test 00:00:00 screening [facility] (procedure) [code Branch = [id number]] Future Scheduled 2020-10-18 INFLUENZA VACCINE Univer sity of Test 00:00:00 (Season Ended) [facility] [code = INFLUENZA Branch VACCINE (Season Ended)] Encounters Start End Encounter Admission Attending Care Care Encounter Source Date/Time Date/Time Type Type [facility] Facility Department ID 2020-12-17 Outpatient P [facility] [id number] Univers 20:44:03 ity of [facility] 2020-12-17 Outpatient P [facility] [id number] Univers 15:42:38 ity of [facility] 2020-12-17 Outpatient P [facility] [id number] Univers 15:42:20 ity of [facility] 2020-12-17 Outpatient P [facility] [id number] Univers 12:42:32 ity of [facility] 2020-12-17 Outpatient P [facility] [id number] Univers 12:42:20 ity of [facility] 2020-12-06 2020-12-06 Outpatient R [facility] [id number] Univers 10:30:00 10:30:00 LIZETTE archer o f [facility] 2020-09-04 2020-09-04 Telephone [facility] 1.2.840.114 [id number] Univers 00:00:00 00:00:00 Lizette C SANDING MACHINE BUFFER 350.1.13.10 ity of REGIONAL 4.2.7.2.686 Henry as MATERNAL [id number] [facility] [address] [place] [address] 2020-08-30 2020-08-30 Office [facility] 1.2.635.669 [id number] Univers 08:10:27 08:55:14 Visit Lizette C SANDING MACHINE BUFFER 350.1.13.10 ity of REGIONAL 4.2.7.2.686 Henry as MATERNAL [phone] [facility] [address] [place] [address] 2020-08-30 2020-08-30 Outpatient R [facility] [id number] Univers 08:15:00 08:15:00 LIZETTE vasquez [facility] 2020-08-07 2020-08-07 Routine [facility] 1.2.469.691 [id number] Univers 09:02:18 09:17:18 Lizette C SANDING MACHINE BUFFER 350.1.13.10 ity of Visit REGIONAL 4.2.7.2.686 Henry as MATERNAL [id number] [facility] & [address] 2020-08-07 2020-08-07 Outpatient R [facility] [id number] Univers 09:15:00 09:15:00 LIZETTE archer o [facility] 2020-07-20 2020-07-20 Outpatient R [facility] [id number] Univers 15:00:00 15:00:00 ity of [facility] 2020-07-18 2020-07-18 Outpatient R [facility] [id number] Univers 14:30:00 14:30:00 ity of [facility] 2020-07-14 2020-07-16 [facility] LIA Souza 1.2.840.114 [id number] Univers 21:46:00 14:09:00 Encounter Chasey [place] 350.1.13.10 ity of [facility] 4.2.7.2.686 [place] [id number] [facility] 063 [place] 2020-07-15 2020-07-15 Surgery Kate Alexandre 1.2.936.728 [id number] Univers 11:50:00 13:16:00 [place]EV[place] 350.1.13.10 it y of [place].2.7.2.686 [place] [id number] [facility] 013 [place] 2020-07-13 2020-07-13 Outpatient R [facility] [id number] Univers 14:00:00 14:00:00 ity Formerly [facility] 2020-07-10 2020-07-10 Routine [facility], [facility] 1.2.929.620 [id number] Univers 14:39:24 15:42:26 Lizette C SANDING MACHINE BUFFER 350.1.13.10 ity of Visit REGIONAL 4.2.7.2.686 Henry as MATERNAL [id number] Med ical & CHILD [address] [place] [address] 2020-07-10 2020-07-10 Outpatient R [facility] [id number] Univers 14:30:00 14:30:00 ity [facility]ly [facility] 2020-07-06 2020-07-06 Routine Risk, Pcy-Sabda-Uy/High [facility] 1. 2.840.114 [id number] Univers 13:51:59 15:15:19 Mary Grace Nava SANDING MACHINE BUFFER 350.1.13.10 ity of Visit REGIONAL 4.2.7.2.686 Henry as MATERNAL [id number] [facility] ical & CHILD [address] [place] [address] 2020-07-06 2020-07-06 Outpatient R [facility] [id number] Univers 14:00:00 14:00:00 ity [facility]ly [facility] 2020-07-04 2020-07-04 [facility]phone [facility] 1.2.840.114 [id number] Univers 00:00:00 00:00:00 Lizette C SANDING MACHINE BUFFER 350.1.13.10 ity of REGIONAL 4.2.7.2.686 Henry as MATERNAL [phone] [facility] [address] [place] [address] 2020-07-04 2020-07-04 Abstract Akinpe, [facility] 1.2.840.114 [id number] Univers 00:00:00 00:00:00 Lizette C SANDING MACHINE BUFFER 350.1.13.10 ity of REGIONAL 4.2.7.2.686 Henry as MATERNAL [id number] [facility] & CHILD [address] [place] [address] 2020-07-03 2020-07-03 Routine Akinpe, [facility] 1.2.320.805 [id number] Univers 14:35:38 15:23:50 Lizette C SANDING MACHINE BUFFER 350.1.13.10 ity of Visit REGIONAL 4.2.7.2.686 Henry as MATERNAL [id number] [facility] & CHILD [address] [place] [address] 2020-07-03 2020-07-03 Outpatient R [facility] [id number] Univers 14:45:00 14:45:00 ity of [facility] 2020-07-03 2020-07-03 Desulfurizer Hand Ultrasound, Roberto [facility] 1.2 .840.114 [id number] Univers 14:15:12 14:34:18 Visit Dion Acosta SANDING MACHINE BUFFER 350.1.13.10 ity of REGIONAL 4.2.7.2.686 Henry as MATERNAL [id number] [facility] [address] [facility] 2020-06-29 2020-06-29 Routine Risk, Yve-Lrnkz-Bv/High [facility] 1. 2.840.114 [id number] Univers 13:24:41 14:19:29 Mary Grace Nava SANDING MACHINE BUFFER 350.1.13.10 ity of Visit REGIONAL 4.2.7.2.686 Henry as MATERNAL [id number] [facility] [address] [place] [address] 2020-06-29 2020-06-29 Outpatient R [facility] [id number] Univers 14:00:00 14:00:00 ity of [facility] 2020-06-26 2020-06-26 Routine Akinsipe, [facility] 1.2.087.217 [id number] Univers 13:50:58 14:52:08 Lizette C SANDING MACHINE BUFFER 350.1.13.10 ity of Visit REGIONAL 4.2.7.2.686 Henry as MATERNAL [phone] [facility] & CHILD [address] [place] [address] 2020-06-26 2020-06-26 Outpatient R [facility] [id number] Univers 14:00:00 14:00:00 ity [facility]ly [facility] 2020-06-22 2020-06-22 Routine Risk, Hej-Itxbz-Bl/High [facility] 1. 2.840.114 [id number] Univers 08:49:16 09:53:49 Mary Grace Nava SANDING MACHINE BUFFER 350.1.13.10 ity of Visit [facility] 4.2.7.2.686 Henry as MATERNAL [id number] [facility] & [address] 2020-06-22 2020-06-22 Outpatient R [facility] [id number] Univers 09:00:00 09:00:00 ity of [facility] 2020-06-22 2020-06-22 Telephone [facility], [facility] 1.2.840.114 [id number] Univers 00:00:00 00:00:00 Lizette C SANDING MACHINE BUFFER 350.1.13.10 ity of [facility] 4.2.7.2.686 Henry as MATERNAL [id number] [facility] & [address] 2020-06-20 2020-06-20 Outpatient R KINZA [facility] [id number] Univers 10:00:00 10:00:00 TONIO ity Formerly [facility] 2020-06-13 2020-06-13 [facility] Jaclyn Duval [facility] 1.2.840.114 [id number] Univers 18:04:00 19:07:00 Encounter Napoleon [place] 350.1.13.10 ity [facility].7.2.686 [facility] [id number] [facility] 083 [place] 2020-06-08 2020-06-08 Outpatient R [facility] [id number] Univers 08:30:00 08:30:00 ity of [facility] 2020-06-05 2020-06-05 [facility] Jaclyn Duval [facility] 1.2.840.114 [id number] Univers 18:10:00 20:23:00 Encounter Radha Mehta 350.1.13.10 ity of [place] 4.2.7.2.686 [facility] [phone] [place] [id number] [place] 2020-06-05 2020-06-05 Telephone [facility], [facility] 1.2.244.890 [id number] Univers 00:00:00 00:00:00 Ang-Rmchp-N SANDING MACHINE BUFFER 350.1.13.10 ity of p/High [facility] 4.2.7.2.686 Henry as MATERNAL [phone] Med ical & CHILD [address] [place] [address] 2020-06-05 2020-06-05 Orders Doctor LIA 1.2.840.114 [id number] Univers 00:00:00 00:00:00 Only Unassigned, NEVILLE 350.1.13.10 ity of [place] [facility] 4.2.7.2.686 Henry as [id number] [facility] 009 [place] 2020-05-30 2020-05-30 [facility] Radha Mehta [facility] 1.2.840.114 [id number] Univers 19:58:00 21:25:00 Encounter Nikita 350.1.13.10 ity of [place] 4.2.7.2.686 [facility] [id number] [facility] 083 [place] 2020-05-30 2020-05-30 Orders Doctor LIA 1.2.840.114 [id number] Univers 00:00:00 00:00:00 Only Unassigned, [place]EVILLE 350.1.13.10 ity of [place] [facility] 4.2.7.2.686 Henry as [id number] [facility] 009 [place] 2020-05-23 2020-05-23 Outpatient TREVOR [facility] [id number] Univers 10:00:00 10:00:00 ARSALAN ity Formerly [facility] 2020-05-22 2020-05-22 Routine [facility] 1.2.962.113 [id number] Univers 10:26:59 10:58:34 Lizette C SANDING MACHINE BUFFER 350.1.13.10 ity of Visit [facility] 4.2.7.2.686 Henry as MATERNAL [id number] [facility] ical & CHILD [address] [place] [address] 2020-05-22 2020-05-22 [facility] [id number] Univers 09:45:00 09:45:00 LIZETTE hanson [facility] 2020-05-22 2020-05-22 Orders Doctor FITZGERALD 1.2.840.114 [id number] Univers 00:00:00 00:00:00 Only Unassigned, [place] 350.1.13.10 ity of [place] [facility] 4.2.7.2.686 Henry as [phone] [address] 2020-05-09 2020-05-09 [facility] 1.2.840.114 [id number] Univers 00:00:00 00:00:00 [facility] 350.1.13.10 i ty of [facility] 4.2.7.2.686 [place] RACHEL [phone] [address] 2020-05-08 2020-05-08 Routine [facility] 1.2.051.622 [id number] Univers 08:47:27 10:56:07 Lizette C SANDING MACHINE BUFFER 350.1.13.10 ity of Visit [facility] 4.2.7.2.686 Henry as MATERNAL [id number] [facility] ical & CHILD [address] [place] [address] 2020-05-08 2020-05-08 Outpatient Darya GRAHAM [facility] [id number] Univers 09:00:00 09:00:00 DAYDAY archer [facility] 2020-05-08 2020-05-08 [facility] [id number] Univers 09:00:00 09:00:00 LIZETTE hanson [facility] 2020-05-08 2020-05-08 Orders Doctor LIA 1.2.840.114 [id number] Univers 00:00:00 00:00:00 Only Unassigned, [place] 350.1.13.10 ity of [place] [facility] 4.2.7.2.686 Henry as [phone] [address] 2020-05-04 2020-05-04 Telephone [facility] 1.2.840.114 [id number] Univers 00:00:00 00:00:00 Lizette Sprague SANDING MACHINE BUFFER 350.1.13.10 ity of [facility] 4.2.7.2.686 Henry as MATERNAL [id number] [facility] ical & CHILD [address] [place] [address] 2020-05-03 2020-05-03 Desulfurizer Hand [facility], [facility] 1.2.840. 114 [id number] Univers 07:46:58 08:01:58 Visit Dayday Graham SANDING MACHINE BUFFER 350.1.13.10 ity of [facility] 4.2.7.2.686 Henry as MATERNAL [phone] [facility] ical & CHILD [address] [place] [address] 2020-05-03 2020-05-03 Outpatient Darya GRAHAM [facility] [id number] Univers 07:45:00 07:45:00 DAYDAY archer [facility] 2020-04-26 2020-04-26 Telephone [facility] 1.2.840.114 [id number] Univers 00:00:00 00:00:00 Lizette Sprague SANDING MACHINE BUFFER 350.1.13.10 ity of REGIONAL 4.2.7.2.686 Henry as MATERNAL [id number] [facility] ical & CHILD [address] [place] [address] 2020-04-25 2020-04-25 Routine Lizette Lugo [facility] 1.2.8 40.114 [id number] Univers 08:55:43 09:34:31 Dayday Graham SANDING MACHINE BUFFER 350.1.13.10 ity of Visit [facility] 4.2.7.2.686 Henry as MATERNAL [phone] [facility] ical & CHILD [address] [place] [address] 2020-04-25 2020-04-25 Outpatient Darya GRAHAM [facility] [id number] Univers 09:15:00 09:15:00 DAYDAY gianni of [facility] 2020-04-21 2020-04-21 Telephone Santos [facility] 1.2.840.114 [id number] Univers 00:00:00 00:00:00 Dayday Darren SANDING MACHINE BUFFER 350.1.13.10 it y of REGIONAL 4.2.7.2.686 Henry as MATERNAL [phone] [facility] [address] [place] [address] 2020-04-20 2020-04-20 Routine Risk, Lxz-Qnozc-Hc/High [facility] 1. 2.840.114 [id number] Univers 10:18:39 10:46:55 Tara Harvey SANDING MACHINE BUFFER 350.1.13.10 ity of Visit REGIONAL 4.2.7.2.686 Henry as MATERNAL [id number] [facility] & CHILD [address] [place] [address] 2020-04-20 2020-04-20 Outpatient R [facility] [id number] Univers 10:30:00 10:30:00 ity [facility]ly [facility] 2020-04-06 2020-04-06 Outpatient R [facility] [id number] Univers 10:00:00 10:00:00 [facility] 2020-03-28 2020-03-28 Outpatient R AKINARCHIE, [facility] [id number] Univers 11:00:00 11:00:00 LIZETTE archer o f [facility] 2020-03-09 2020-03-09 Desulfurizer Hand Ultrasound, Dustyjustine [facility] 1.2 .840.114 [id number] Univers 13:52:50 15:07:50 Visit Tamiko Goncalves SANDING MACHINE BUFFER 350.1.13.10 ity of REGIONAL 4.2.7.2.686 Henry as MATERNAL [phone] [facility] & CHILD [address] [place] [address] 2020-03-09 2020-03-09 Outpatient P [facility] [id number] Univers 14:00:00 14:00:00 [facility] 2020-02-29 2020-02-29 Routine Akinarchie, [facility] 1.2.670.241 [id number] Univers 12:58:27 13:26:41 Lizette Sprague SANDING MACHINE BUFFER 350.1.13.10 ity of Visit [facility] 4.2.7.2.686 Henry as MATERNAL [id number] [facility] ical & CHILD [address] [place] [address] 2020-02-29 2020-02-29 Outpatient R PARISH [facility] [id number] Univers 13:00:00 13:00:00 LIZETTE archer o f [facility] 2020-02-29 2020-02-29 Orders Doctor LIA 1.2.840.114 [id number] Univers 00:00:00 00:00:00 Only Unassigned, [place]EV[place] 350.1.13.10 ity of [place] [facility] 4.2.7.2.686 Henry as [id number] [address] 2020-02-01 2020-02-01 Routine [facility] 1.2.155.094 [id number] Univers 13:43:05 14:05:32 Dayday Sanchez SANDING MACHINE BUFFER 350.1.13.10 i ty of Visit [facility] 4.2.7.2.686 Henry as MATERNAL [phone] [facility] & CHILD [address] [place] [address] 2020-02-01 2020-02-01 Outpatient R SANTOS [facility] [id number] Univers 14:00:00 14:00:00 DAYDAY archer [facility] 2020-01-26 2020-01-26 Desulfurizer Hand Ultrasound, [facility] 1.2 .840.114 [id number] Univers 13:20:33 13:52:11 Visit Tamiko Goncalves SANDING MACHINE BUFFER 350.1.13.10 ity of [facility] 4.2.7.2.686 Henry as MATERNAL [id number] [facility] ical & CHILD 369 [facility] 2020-01-26 2020-01-26 Outpatient P [facility] [id number] Univers 13:30:00 13:30:00 ity [facility]ly [facility] 2020-01-21 2020-01-21 Telephone Santos [facility] 1.2.840.114 [id number] Univers 00:00:00 00:00:00 Dayday Sanchez SANDING MACHINE BUFFER 350.1.13.10 it y of [place] [address].7.2.686 Henry as MATERNAL [id number] [facility] ical & CHILD 107 [facility] 2020-01-04 2020-01-04 Routine [facility] 1.2.466.352 [id number] Univers 14:10:07 14:25:07 Dayday Darren SANDING MACHINE BUFFER 350.1.13.10 i ty of Visit [place] [address].7.2.686 Henry as MATERNAL [id number] [facility] ical & CHILD [address] [place] [address] 2020-01-04 2020-01-04 [facility] [id number] Univers 14:15:00 14:15:00 DAYDAY archer [facility] 2019-12-03 2019-12-03 Initial [facility] 1.2.840.114 [id number] Univers 13:57:53 15:53:08 Paul SANDING MACHINE BUFFER 350.1.13.10 i ty of Visit [place] [address].7.2.686 Henry as MATERNAL [id number] Med ical & CHILD 111 [facility] 2019-12-03 2019-12-03 Outpatient Darya AREVALO [facility] [id number] Univers 14:00:00 14:00:00 PAUL archer [facility] 2019-11-28 2019-11-28 Orders Doctor LIA 1.2.840.114 [id number] Univers 00:00:00 00:00:00 Only Unassigned, [place] 350.1.13.10 ity of [place] [address]..2.686 Henry as [id number] [address] 2019-06-05 2019-06-07 Inpatient [facility] [id number] [facility] 12:52:00 06:25:28 94 [facility] 2019-05-12 2019-05-12 Outpatient theresa [facility] 5510 [place] 09:15:00 09:15:00 03[facility] 2019-03-12 2019-03-12 Office [facility] 1.2.206.452 [id number] Univers 14:09:29 15:05:26 Visit Lizette Sprague SANDING MACHINE BUFFER 350.1.13.10 ity of [place] 4.2.7.2.686 Henry as MATERNAL [phone] Med ical & CHILD 107 [facility] 2019-03-12 2019-03-12 Office [facility] 1.2.153.724 [id number] 14:09:29 15:05:26 Visit Lizette C SANDING MACHINE BUFFER 350.1.13.10 REGIONAL 4.2.7.2.686 MATERNAL [id number] & CHILD [address] [place] [address] 2019-03-12 2019-03-12 Orders Doctor LIA 1.2.840.114 [id number] Univers 00:00:00 00:00:00 Only Unassigned, [place] 350.1.13.10 ity of [place] [facility] 4.2.7.2.686 Henry as [id number] [facility] 009 [place] 2019-03-11 2019-03-11 Telephone [facility] 1.2.840.114 [id number] Univers 00:00:00 00:00:00 Lizette C SANDING MACHINE BUFFER 350.1.13.10 ity of [place] 4.2.7.2.686 Henry as MATERNAL [phone] Med ical & CHILD [address] [place] [address] 2018-11-02 2018-11-02 Routine [facility] 1.2.307.119 [id number] Univers 09:19:45 10:10:06 Lizette C SANDING MACHINE BUFFER 350.1.13.10 ity of Visit REGIONAL 4.2.7.2.686 Henry as MATERNAL [id number] [facility] ical & CHILD [address] [place] [address] 2018-10-11 2018-10-13 Hospital LIA Blandon 1.2.840.114 [id number] Univers 09:10:00 13:48:00 Encounter Altagracia LOZADA 350.1.13.10 ity of HOSPITAL 4.2.7.2.686 Henry as [id number] [facility] 038 [place] 2018-10-11 2018-10-11 Orders Doctor FITZGERALD 1.2.840.114 [id number] Univers 00:00:00 00:00:00 Only Unassigned, [place] 350.1.13.10 ity of [place] [facility] 4.2.7.2.686 Henry as [id number] [facility] 009 [place] 2018-10-07 2018-10-07 Routine Lizette Lugo [facility] 1.2.8 40.114 [id number] Univers 10:46:28 11:49:44 Dayday Graham SANDING MACHINE BUFFER 350.1.13.10 ity of Visit [facility] 4.2.7.2.686 Henry as MATERNAL [id number] [facility] ical & CHILD [address] [place] [address] 2018-09-30 2018-09-30 Routine Santos [facility] 1.2.816.403 [id number] Univers 10:52:31 11:16:08 Dayday Sanchez SANDING MACHINE BUFFER 350.1.13.10 i ty of Visit [facility] 4.2.7.2.686 Henry as MATERNAL [id number] [facility] & [address] 2018-09-28 2018-09-28 Hospital Kortney FITZGERALD 1.2.840.114 [id number] Univers 11:23:00 13:27:00 Encounter Carline LOZADA 350.1.13.10 ity of s, [place] 4.2.7.2.686 [place] [id number] [facility] 070 [place] 2018-09-28 2018-09-28 Nurse LIA Sutton 1.2.840.114 [id number] Univers 00:00:00 00:00:00 Triage Virginie LOZADA 350.1.13.10 i ty of [facility] 4.2.7.2.686 Henry as [id number] [facility] 019 [place] 2018-09-28 2018-09-28 [facility] 1.2.203.295 [id number] Univers 00:00:00 00:00:00 Secure Msg Lizette C SANDING MACHINE BUFFER 350.1.13.10 ity of [facility] 4.2.7.2.686 Henry as MATERNAL [id number] [facility] & CHILD [address] [place] [address] 2018-09-24 2018-09-24 Telephone Parish, [facility] 1.2.840.114 [id number] Univers 00:00:00 00:00:00 Lizette C SANDING MACHINE BUFFER 350.1.13.10 ity of REGIONAL 4.2.7.2.686 Henry as MATERNAL [id number] [facility] [address] [place] [address] 2018-09-24 2018-09-24 Patient COREY Lugo 1.2.587.006 [id number] Univers 00:00:00 00:00:00 Secure Msg Lizette Sprague SANDING MACHINE BUFFER 350.1.13.10 ity of REGIONAL 4.2.7.2.686 Henry as MATERNAL [id number] [facility] & CHILD [address] [place] [address] 2018-09-23 2018-09-23 Routine Parish, [facility] 1.2.740.730 [id number] Univers 08:57:20 10:50:36 Lizette C SANDING MACHINE BUFFER 350.1.13.10 ity of Visit REGIONAL 4.2.7.2.686 Henry as MATERNAL [id number] [facility] & CHILD [address] [place] [address] 2018-08-14 2018-08-14 Patient Doctor FITZGERALD 1.2.840.114 [id number] Univers 00:00:00 00:00:00 Secure Msg Unassigned, [place] 350.1.13.10 ity of [place] [facility] 4.2.7.2.686 Henry as [phone] [address] Results Test Description Test Time Test Comments Results Result [facility] e Comments LAB ONLY COVID COVID [place] [address] InterpretationInte [facility] 03:38:37 rpretation/Recomme Branch ndations: Molecular NAAT Tests [...] sample was collected for the antibody test. Interpretation Result Comments:These interpretation comments are based upon all COVID-19 testing the patient has had at [facility], including molecular NAAT testing (more commonly known as PCR testing and Rapid ID Now testing) and antibody testing. It does not take into account any testing that a patient has had outside of the [facility] medical record. [facility] LABORATORY SERVICESCOVID CpjvpiiEZAT-CwY-0 Rapid ID NOW (no units) ? ? Date ? Value ? 07/14/2020 ? Not Detected ? ? ? 07/08/2020 ? Not Detected ? ? ? 06/13/2020 ? Not Detected ? CoV-2 IgG (no units) ? ? Date ? Value ? 07/03/2020 ? Positive (A) ? ? ? 12/03/2019 ? Negative ? ? ? [facility]OR[facility]ORY SERVICES CBC with Differential 2020-07-16 10:28:11 [...] L [Au tomated message] The system which [employer] nerated this result transmit kishor reference range: [...] g/dL 31.6-35.1 L RDW-SD (test code = 09948-2) 48.5 fL 39.0-49.9 RDW-CV (test code = 788-0) 14.8 % 12.0-15.5 PLT (test code = 777-3) See_Comment [Au tomated message] The system which [employer] nerated this result transmit kishor reference range: 166 - 35 8 10*3/?L. The reference range was not used to interpret th is result as normal/abnormal . MPV (test code = 17506-8) 9.5 fL 9.5-12.9 NRBC/100 WBC (test code = See_Comment [ Automated message] The [id number]) system which [employer] nerated this result transmit kishor reference range: 0.0 - 10 .0 /100 WBCs. The reference r kb was not used to interpr et this result as normal/abnor mal. NRBC x10^3 (test code = <0.01 See_Comment [Au tomated message] The 8882500882) system which [employer] nerated this result transmit kishor reference range: 10*3/?L. The reference range was not u sed to interpret this result as normal/abnormal . GRAN MAT (NEUT) % (test code 77.0 % = 770-8) IMM GRAN % (test code = 0.80 % 1390324076) LYMPH % (test code = 736-9) 12.4 % MONO % (test code = 5905-5) 8.7 % EOS % (test code = 713-8) 0.9 % BASO % (test code = 706-2) 0.2 % GRAN MAT x10^3(ANC) (test 11.03 10*3/uL 1.88-7.09 H code = 9679362198) IMM GRAN x10^3 (test code = 0.12 10*3/uL 0.00-0.06 H 3469893794) LYMPH x10^3 (test code = 1.78 10*3/uL 1.32-3.29 731-0) MONO x10^3 (test code = 1.25 10*3/uL 0.33-0.92 H 742-7) EOS x10^3 (test code = 0.13 10*3/uL 0.03-0.39 711-2) BASO x10^3 (test code = 0.03 10*3/uL 0.01-0.07 704-7) Lab Interpretation (test Abnormal code = 90717-8) [facility] with Smqhayhypzoq2600-53-42 10:28:11 Test Item Value Reference Range Interpretation [...] RDW-SD (test code = 48.5 fL 39.0-49.9 82625-5) RDW-CV (test code = 14.8 % 12.0-15.5 788-0) PLT (test code = See_Comment [Automated 777-3) message] The system which generated this result transmit kishor reference range : 166 - 358 10*3/ ?L. The reference range was not u sed to interpret th is result as normal/abnormal . MPV (test code = 9.5 fL 9.5-12.9 63803-0) NRBC/100 WBC (test See_Comment [Automat ed code = 4705896574) message] The system which generated this result transmit kishor reference range : 0.0 - 10.0 /100 WBCs. The reference range was not used to interpret this result as normal/abnormal . NRBC x10^3 (test code <0.01 See_Comment [Auto mated = 2517863820) message] The system which generated this result transmit kishor reference range : 10*3/?L. The reference range was not used to interpret this result as normal/abnormal . GRAN MAT (NEUT) % 77.0 % (test code = 770-8) IMM GRAN % (test code 0.80 % = 3216105259) LYMPH % (test code = 12.4 % 736-9) MONO % (test code = 8.7 % 5905-5) EOS % (test code = 0.9 % 713-8) BASO % (test code = 0.2 % 706-2) GRAN MAT x10^3(ANC) 11.03 10*3/uL 1.88-7.09 H (test code = 8438194641) IMM GRAN x10^3 (test 0.12 10*3/uL 0.00-0.06 H code = 5418428486) LYMPH x10^3 (test code 1.78 10*3/uL 1.32-3.29 = 731-0) MONO x10^3 (test code 1.25 10*3/uL 0.33-0.92 H = 742-7) EOS x10^3 (test code = 0.13 10*3/uL 0.03-0.39 711-2) BASO x10^3 (test code 0.03 10*3/uL 0.01-0.07 = 704-7) Lab Interpretation Abnormal (test code = 44282-3) [facility] (D) IMMUNE [id number] 01:57:12 Test Item Value Reference Range Interpretation Comments RHIG CANDIDATE? No- see comment Patient i s not a (test code = candidate for R hIg- 5055) Patient is Rh Positive.Perfor med at [facility] Laboratory Services - [facility] Blood [address] Free: [phone] A No. [id number] [facility] () IMMUNE [id number] 01:57:12 Test Item Value Reference Range Interpretation Comments RHIG CANDIDATE? No- see comment Patient i s not a (test code = candidate for R hIg- 5055) Patient is Rh Positive.Perfor med at [facility] Laboratory Services - [facility] Blood [address] [place] [address] Free: [phone] A No. [id number] [facility] ONLY - SYPHILIS [id number] 16:55:55 Test Item Value Reference Range Interpretation Comments Syphilis IgG/IgM (test Non-reactive Non-reactive code = 82907-6) KARLA (test code = KARLA) Non-reactive - No serologic evidence of T. pallidum infection. Cannot exclude incubating or early syphilis. Submit a second specimen in 2-4 weeks if syphilis is clinically suspected. Equivocal - Further testing to follow. Reactive - Further testing to follow. Lab Interpretation (test Normal code = 57165-3) [facility] ONLY - SYPHILIS [id number] 16:55:55 Test Item Value Reference Range Interpretation Comments Syphilis IgG/IgM (test Non-reactive Non-reactive code = 76176-8) KARLA (test code = KARLA) Non-reactive - No serologic evidence of T. pallidum infection. Cannot exclude incubating or early syphilis. Submit a second specimen in 2-4 weeks if syphilis is clinically suspected. Equivocal - Further testing to follow. Reactive - Further testing to follow. Lab Interpretation (test Normal code = 89963-5) [facility] CORD [id number] 14:33:45 Test Item Value Reference Range Interpretation Comments VENOUS BASE EXCESS, mEq/L CORD (test code = 0889469178) VENOUS PH, CORD (test 7.25-7.45 code = 2984037569) VENOUS PC02, CORD See_Comment [Automate d message] The (test code = system which ge nerated 8510319844) this result tra nsmitted reference range : 27 - 49 mmHg. The refer ence range was not used to interpret this result as normal/abnormal . VENOUS PO2, CORD (test See_Comment [Aut omated message] The code = 6302895168) system [facility] generated this result tra nsmitted reference range : 17 - 41 mmHg. The refer ence range was not used to interpret this result as normal/abnormal . VENOUS BICARBONATE, See_Comment [Automa kishor message] The CORD (test code = system [facility] generated 2414594578) this result tra nsmitted reference range : 12 - 29 mEq/L. The refe rence range was not used to interpret this result as normal/abnormal . [facility] CORD [id number] 14:33:45 Test Item Value Reference Range Interpretation Comments VENOUS BASE EXCESS, mEq/L CORD (test code = 8451505170) VENOUS PH, CORD (test 7.25-7.45 code = 7550198625) VENOUS PC02, CORD See_Comment [Automate d message] The (test code = system which ge nerated 8800014108) this result tra nsmitted reference range : 27 - 49 mmHg. The refer ence range was not used to interpret this result as normal/abnormal . VENOUS PO2, CORD (test See_Comment [Aut omated message] The code = 6213512860) system [facility] generated this result tra nsmitted reference range : 17 - 41 mmHg. The refer ence range was not used to interpret this result as normal/abnormal . VENOUS BICARBONATE, See_Comment [Automa kishor message] The CORD (test code = system [facility] generated 7664201431) this result tra nsmitted reference range : 12 - 29 mEq/L. The refe rence range was not used to interpret this result as normal/abnormal . [facility] [id number] 14:30:44 Test Item Value Reference Range Interpretation Comments BASE EXCESS, CORD mEq/L (test code = 0009525817) AC PH, CORD (BEAKER) 7.18-7.38 (test code = 3035166786) PC02, CORD (test code See_Comment [Auto mated message] The = ) system which g enerated this result transmit kisohr reference range : 32 - 66 mmHg. The refer ence range was not used to interpret this result as normal/abnormal . PO2, CORD (test code See_Comment [Autom ated message] The = 7691441182) system which g enerated this result transmit kishor reference range : 10 - 30 mmHg. The refer ence range was not used to interpret this result as normal/abnormal . BICARBONATE, CORD See_Comment [Automate d message] The (test code = system which ge nerated this 3284113943) result transmit kishor reference range : 17 - 27 mEq/L. The refe rence range was not used to interpret this result as normal/abnormal . [facility] [id number] 14:30:44 Test Item Value Reference Range Interpretation Comments BASE EXCESS, CORD mEq/L (test code = 4046646243) AC PH, CORD (BEAKER) 7.18-7.38 (test code = 4665554762) PC02, CORD (test code See_Comment [Auto mated message] The = 3651217116) system which g enerated this result transmit kishor reference range : 32 - 66 mmHg. The refer ence range was not used to interpret this result as normal/abnormal . PO2, CORD (test code See_Comment [Autom ated message] The = 9497030464) system which g enerated this result transmit kishor reference range : 10 - 30 mmHg. The refer ence range was not used to interpret this result as normal/abnormal . BICARBONATE, CORD See_Comment [Automate d message] The (test code = system which ge nerated this 7033192771) result transmit kishor reference range : 17 - 27 mEq/L. The refe rence range was not used to interpret this result as normal/abnormal . [facility] GLUCOSE (AUTOMATED)2020-07-15 11:59:25 Test Item Value Reference Range Interpretation Comments POCT GLU (test code = 5211249474) 122 mg/dL 70-110 H Lab Interpretation (test code = Abnormal 43320-3) [facility] GLUCOSE (AUTOMATED)2020-07-15 11:59:25 Test Item Value Reference Range Interpretation Comments POCT GLU (test code = 9569942806) 122 mg/dL 70-110 H Lab Interpretation (test code = Abnormal 27303-1) [facility] GLUCOSE (AUTOMATED)2020-07-15 08:15:23 Test Item Value Reference Range Interpretation Comments POCT GLU (test code = 3806124825) 122 mg/dL 70-110 H Lab Interpretation (test code = Abnormal 98728-8) [facility] GLUCOSE (AUTOMATED)2020-07-15 08:15:23 Test Item Value Reference Range Interpretation Comments POCT GLU (test code = 5067485848) 122 mg/dL 70-110 H Lab Interpretation (test code = Abnormal 58745-7) [facility] 06:40:28 Test Item Value Reference Range Interpretation Comments APPEARANCE (test code = Clear Clear 6119265609) COLOR (test code = Yellow Yellow 0344537323) PH (test code = 4.8-8.0 8618767325) SP GRAVITY (test code = 1.003-1.030 3947634926) GLU U QUAL (test code = Normal Normal 2764366120) BLOOD (test code = Negative Negative 5106763909) KETONES (test code = 5 mg/dL Negative A 9230274910) PROTEIN (test code = Negative Negative 2887-8) UROBILIN (test code = Normal Normal 6701835843) BILIRUBIN (test code = Negative Negative 7189468855) NITRITE (test code = Negative Negative 7406181318) LEUK RAJ (test code = Negative Negative 6004608968) RBC/HPF (test code = See_Comment H [Autom ated message] 7639081249) The system [employer] generated this result transmitted ref erence range: 0 - 3 HP F. The reference range was not used to int erpret this result as normal/abnormal . WBC/HPF (test code = See_Comment [Autom ated message] 1791964535) The system [employer] generated this result transmitted ref erence range: 0 - 5 HP F. The reference range was not used to int erpret this result as normal/abnormal . BACTERIA (test code = Few Negative A 6576011676) MUCOUS (test code = Moderate Negative LPF A 4314127473) SQ EPITH (test code = See_Comment H [Auto mated message] 3335556511) The system [employer] generated this result transmitted ref erence range: <=2 HPF. The reference range was not used to int erpret this result as normal/abnormal . Lab Interpretation (test Abnormal code = 02667-2) [facility] 06:40:28 Test Item Value Reference Range Interpretation Comments APPEARANCE (test code = Clear Clear 7110300904) COLOR (test code = Yellow Yellow 4917934226) PH (test code = 4.8-8.0 3034047757) SP GRAVITY (test code = 1.003-1.030 7578327479) GLU U QUAL (test code = Normal Normal 3856500192) BLOOD (test code = Negative Negative 0595310998) KETONES (test code = 5 mg/dL Negative A 1419078899) PROTEIN (test code = Negative Negative 2887-8) UROBILIN (test code = Normal Normal 3387993046) BILIRUBIN (test code = Negative Negative 8283597975) NITRITE (test code = Negative Negative 8973401629) LEUK RAJ (test code = Negative Negative 4172937005) RBC/HPF (test code = See_Comment H [Autom ated message] 1992708269) The system [employer] generated this result transmitted ref erence range: 0 - 3 HP F. The reference range was not used to int erpret this result as normal/abnormal . WBC/HPF (test code = See_Comment [Autom ated message] 6663206677) The system [employer] generated this result transmitted ref erence range: 0 - 5 HP F. The reference range was not used to int erpret this result as normal/abnormal . BACTERIA (test code = Few Negative A 4032713068) MUCOUS (test code = Moderate Negative LPF A 4247626454) SQ EPITH (test code = See_Comment H [Auto mated message] 8522292087) The system [employer] generated this result transmitted ref erence range: <=2 HPF. The reference range was not used to int erpret this result as normal/abnormal . Lab Interpretation (test Abnormal code = 91390-9) [facility] Ratio Urine [id number] 06:39:32 Test Item Value Reference Range Interpretation Comments T. PROT U (test code = 2888-6) 13 mg/dL CREAT U (test code = 5348165598) 156.2 mg/dL Protein/Creatinine Ratio Urine 0.0-2.0 (test code = 8263798624) [facility] CRE[facility] Ratio Urine [id number] 06:39:32 Test Item Value Reference Range Interpretation Comments T. PROT U (test code = 2888-6) 13 mg/dL CREAT U (test code = 8059835964) 156.2 mg/dL Protein/Creatinine Ratio Urine 0.0-2.0 (test code = 4073235987) [facility] AG-AB WITH [id number] 06:12:14 Test Item Value Reference Range Interpretation Comments HIV Negative Negative Semi-quantitative (test code = 47645-6) KARLA (test code = Non-reactive for HIV-1 KARLA) antigen and HIV-1/HIV-2 antibodies. ?No laboratory evidence of HIV infection. ?Repeat in 2-4 weeks if acute HIV infection is suspected. [facility] AG-AB WITH [id number] 06:12:14 Test Item Value Reference Range Interpretation Comments HIV Negative Negative Semi-quantitative (test code = 30103-9) KARLA (test code = Non-reactive for HIV-1 KARLA) antigen and HIV-1/HIV-2 antibodies. ?No laboratory evidence of HIV infection. ?Repeat in 2-4 weeks if acute HIV infection is suspected. [facility] SystemHEPATITIS B SURFACE [id number] 06:03:09 Test Item Value Reference Range Interpretation Comments HBsAg Semi-Quantitative (test code = Negative Negative 5195-3) [facility]HE[facility]LE[facility] SURFACE [id number] 06:03:09 Test Item Value Reference Range Interpretation Comments HBsAg Semi-Quantitative (test code = Negative Negative 5195-3) [facility] SystemU[facility] Acid Coqkk3758-73-01 05:31:11 Test Item Value Reference Range Interpretation Comments URIC ACID (test code = 3527192796) 4.7 mg/dL 2.9-6.0 Lab Interpretation (test code = Normal 46582-4) [facility] Pvkqypjdfc0415-79-44 05:31:11 Test Item Value Reference Range Interpretation Comments CREATININE (test code = 0.49 mg/dL 0.50-1.04 L 0296848470) eGFR (test code = mL/min/1.73m2 3693844628) KARLA (test code = KARLA) Association of [...] tests). Lab Interpretation Abnormal (test code = 68851-0) [facility]2020-07-15 05:31:11 Test Item Value Reference Range Interpretation Comments AST(SGOT) (test code = 8364286550) 19 U/L 13-40 Lab Interpretation (test code = Normal 00055-2) [facility] System[facility] [id number] 05:31:11 Test Item Value Reference Range Interpretation Comments URIC ACID (test code = 1343404996) 4.7 mg/dL 2.9-6.0 Lab Interpretation (test code = Normal 44768-8) [facility] Hnhoxuutia7940-43-66 05:31:11 Test Item Value Reference Range Interpretation Comments CREATININE (test code = 0.49 mg/dL 0.50-1.04 L 4472408731) eGFR (test code = mL/min/1.73m2 4840643611) KARLA (test code = KARLA) Association of [...] tests). Lab Interpretation Abnormal (test code = 54312-1) [facility] (Asparate Amino Transfer)2020-07-15 05:31:11 Test Item Value Reference Range Interpretation Comments AST(SGOT) (test code = 1006354419) 19 U/L 13-40 Lab Interpretation (test code = Normal 77830-8) [facility] SystemAlanine Amino Transferase (SGPT)2020-07-15 05:31:10 Test Item Value Reference Range Interpretation Comments ALTv (test code = 1742-6) 12 U/L 5-35 Lab Interpretation (test code = Normal 86798-7) [facility] System[facility] Amino Transferase (SGPT)2020-07-15 05:31:10 Test Item Value Reference Range Interpretation Comments ALTv (test code = 1742-6) 12 U/L 5-35 Lab Interpretation (test code = Normal 31778-1) [facility] SystemLactate Syykvszgjkkgg7398-10-14 05:30:50 Test Item Value Reference Range Interpretation Comments LDH (test code = 0443088774) 459 U/L 300-600 Lab Interpretation (test code = Normal 61729-0) [facility] Weipwhznkwmtu3180-86-70 05:30:50 Test Item Value Reference Range Interpretation Comments LDH (test code = 8443297514) 459 U/L 300-600 Lab Interpretation (test code = Normal 95320-7) [facility] - ONCE [id number] 05:21:09 Test Item Value Reference Range Interpretation Comments ABO & RH (test code B POSITIVE Performe d at [facility] = 20) Laboratory [facility] [place] [address]Ykma Free: [phone] A No. [id number] IAT (test code = Negative Performed a t [facility] 1185) Laboratory [facility] Blood [address] [place] [address] s [address]Sbke Free: [phone] A No. [id number] [facility] - ONCE [id number] 05:21:09 Test Item Value Reference Range Interpretation Comments ABO & RH (test code B POSITIVE Performe d at [facility] = 20) Laboratory [facility] [address] [place] [address] s [address]Fsna Free: [phone] A No. [id number] IAT (test code = Negative Performed a t [facility] 1185) Laboratory [facility] Blood [address]loina avila [address]Inkq Free: [phone] A No. [id number] [facility] with Llcrumywjoxs1774-50-44 05:01:18 Test Item Value Reference Range Interpretation [...] RDW-SD (test code = 48.0 fL 39.0-49.9 77402-4) RDW-CV (test code = 14.8 % 12.0-15.5 788-0) PLT (test code = See_Comment [Automated 777-3) message] The system which generated this result transmit kishor reference range : 166 - 358 10*3/ ?L. The reference range was not u sed to interpret th is result as normal/abnormal . MPV (test code = 9.6 fL 9.5-12.9 43123-8) NRBC/100 WBC (test See_Comment [Automat ed code = 4378895997) message] The system which generated this result transmit kishor reference range : 0.0 - 10.0 /100 WBCs. The reference range was not used to interpret this result as normal/abnormal . NRBC x10^3 (test code <0.01 See_Comment [Auto mated = 6524759244) message] The system which generated this result transmit kishor reference range : 10*3/?L. The reference range was not used to interpret this result as normal/abnormal . GRAN MAT (NEUT) % 74.5 % (test code = 770-8) IMM GRAN % (test code 1.60 % = 2791170756) LYMPH % (test code = 15.7 % 736-9) MONO % (test code = 7.1 % 5905-5) EOS % (test code = 0.9 % 713-8) BASO % (test code = 0.2 % 706-2) GRAN MAT x10^3(ANC) 11.97 10*3/uL 1.88-7.09 H (test code = 5453632017) IMM GRAN x10^3 (test 0.25 10*3/uL 0.00-0.06 H code = 9501605877) LYMPH x10^3 (test code 2.52 10*3/uL 1.32-3.29 = 731-0) MONO x10^3 (test code 1.14 10*3/uL 0.33-0.92 H = 742-7) EOS x10^3 (test code = 0.14 10*3/uL 0.03-0.39 711-2) BASO x10^3 (test code 0.04 10*3/uL 0.01-0.07 = 704-7) Lab Interpretation Abnormal (test code = 64958-8) [facility] with Mbnqglpibnwl5849-82-90 05:01:18 Test Item Value Reference Range Interpretation Comments WBC (test code = See_Comment H [Automated 1490-2) message] The system which generated this result transmit kishor reference range : 4.30 - 11.10 10*3/?L. The reference range was not used to interpret this result as normal/abnormal . RBC (test code = See_Comment L [Automated 969-8) message] The system which generated this result [...] RDW-SD (test code = 48.0 fL 39.0-49.9 29621-3) RDW-CV (test code = 14.8 % 12.0-15.5 788-0) PLT (test code = See_Comment [Automated 777-3) message] The system which generated this result transmit kishor reference range : 166 - 358 10*3/ ?L. The reference range was not u sed to interpret th is result as normal/abnormal . MPV (test code = 9.6 fL 9.5-12.9 63365-1) NRBC/100 WBC (test See_Comment [Automat ed code = 7420279502) message] The system which generated this result transmit kishor reference range : 0.0 - 10.0 /100 WBCs. The reference range was not used to interpret this result as normal/abnormal . NRBC x10^3 (test code <0.01 See_Comment [Auto mated = 7901708376) message] The system which generated this result transmit kishor reference range : 10*3/?L. The reference range was not used to interpret this result as normal/abnormal . GRAN MAT (NEUT) % 74.5 % (test code = 770-8) IMM GRAN % (test code 1.60 % = 6154519285) LYMPH % (test code = 15.7 % 736-9) MONO % (test code = 7.1 % 5905-5) EOS % (test code = 0.9 % 713-8) BASO % (test code = 0.2 % 706-2) GRAN MAT x10^3(ANC) 11.97 10*3/uL 1.88-7.09 H (test code = 1709240957) IMM GRAN x10^3 (test 0.25 10*3/uL 0.00-0.06 H code = 0624134340) LYMPH x10^3 (test code 2.52 10*3/uL 1.32-3.29 = 731-0) MONO x10^3 (test code 1.14 10*3/uL 0.33-0.92 H = 742-7) EOS x10^3 (test code = 0.14 10*3/uL 0.03-0.39 711-2) BASO x10^3 (test code 0.04 10*3/uL 0.01-0.07 =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
--- NOTE | 2022-02-23 16:44 | ER ---
Nurse's Notes [facility] Name: Gail Juárez Age: 26 yrs Sex: Female : 1995 Arrival Date: 02/23/2022 Time: 15:47 Bed IW2 Private MD: Diagnosis: Dental Pain Presentation: 02/23 16:05 Chief complaint: Patient states: left lower jaw pain that radiates up into her head. kc6 stated "I have a bad tooth and I'm waiting to go to the dentist.". Coronavirus screen: Vaccine status: Patient reports being unvaccinated. At this time, the client does not indicate any symptoms associated with coronavirus-19. Ebola Screen: No symptoms or risks identified at this time. Initial Sepsis Screen: Does the patient meet any 2 criteria? No. Patient's initial sepsis screen is negative. Does the patient have a suspected source of infection? No. Patient's initial sepsis screen is negative. Risk Assessment: Do you want to hurt yourself or someone else? Patient reports no desire to harm self or others. Onset of symptoms was February 23, 2022. 16:05 Method Of Arrival: Ambulatory 6 16:05 Acuity: CHAYO 3 kc6 Triage Assessment: 16:09 General: Appears in no apparent distress. uncomfortable, Behavior is calm, cooperative, kc6 appropriate for age. Pain: Complains of pain in left lower jaw Pain radiates to head Pain currently is 7 out of 10 on a pain scale. Quality of pain is described as sharp, throbbing, Pain began gradually, Is continuous, Alleviated by nothing. Aggravated by eating, drinking, Noted to be Also complains of no other associated symptoms. EENT: Reports pain in left lower jaw. 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 - Social history:: Smoking status: Patient denies any tobacco usage or history of. Screenin:02 [facility] ED Fall Risk Assessment (Adult) History of falling in the last 3 months, kc6 including since admission No falls in past 3 months (0 pts) Confusion or Disorientation No (0 pts) Intoxicated or Sedated No (0 pts) Impaired Gait No (0 pts) Mobility Assist Device Used No (0 pt) Altered Elimination No (0 pt) Score/Fall Risk Level 0 - 2 = Low Risk Oriented to surroundings, Maintained a safe environment, Educated pt \\T\\ family on fall prevention, incl call for assistance when getting out of bed, Assessed \\T\\ reinforced patient's understanding of fall precautions, Hourly rounding (assess needs \\T\\ fall precautionary measures) done. Abuse screen: Denies threats or abuse. Denies injuries from another. Nutritional screening: No deficits noted. Tuberculosis screening: No symptoms or risk factors identified. Vital Signs: 16:05 Resp 18 S; Temp 99.0(O); Weight 113.4 kg (R); Height 5 ft. 7 in. (170.18 cm) (R); Pain kc6 7/10; 16:14 BP 120 / 67; Pulse 91; Resp 18 S; Pulse Ox 98% on R/A; kc6 16:05 Body Mass Index 39.16 (113.40 kg, 170.18 cm) kc6 ED Course: 15:47 Patient arrived in ED. am2 16:02 Scott Hannon PA is PHCP. [facility] 16:02 Hermann Price MD is Attending Physician. [facility] 16:09 Triage completed. [facility] 16:09 Arm band placed on. [facility] 16:43 Richard Cole DDS is Referral Physician. [facility] 17:03 Patient has correct armband on for positive identification. Bed in low position. Call kc6 light in reach. Side rails up X 1. 17:03 No provider procedures requiring assistance completed. Patient did not have IV access kc6 during this emergency room visit. Administered Medications: 17:02 Drug: Ketorolac 30 mg Route: IM; Site: left deltoid; kc6 Medication: 17:03 VIS not applicable for this client. 6 Outcome: 16:43 Discharge ordered by . [facility] 17:03 Discharged to home ambulatory. [facility] 17:03 Condition: stable 17:03 Discharge instructions given to patient, Instructed on discharge instructions, follow up and referral plans. medication usage, Demonstrated understanding of instructions, follow-up care, medications, Prescriptions given X 2. 17:03 Patient left the ED. kc6 Signatures: Scott Hannon PA PA jmm Moreno, Amanda am2 Campbell, Kaitlyn RN RN kc6
--- NOTE | 2022-02-23 16:44 | EDPHYS ---
Physician Documentation [facility] Name: Gail Juárez Age: 26 yrs Sex: Female : 1995 Arrival Date: 02/23/2022 Time: 15:47 Bed IW2 Private MD: ED Physician Hermann Price HPI: 02/23 16:10 This 26 yrs old Female presents to ER via Ambulatory with complaints of Toothache. jmm 16:10 The patient presents with broken tooth/teeth, pain. Onset: The symptoms/episode jmm began/occurred gradually. Duration: The symptoms are continuous, and are steadily getting worse. Modifying factors: The symptoms are alleviated by nothing, the symptoms are aggravated by chewing, cold fluids. Associated signs and symptoms: Pertinent negatives: fever. Patient states she initially injured her left lower molar approximately 3 years ago and is yet to. Due to dental office anxiety. Denies any fever or shortness of breath. Denies swelling sensation to her throat. 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 - Social history:: Smoking status: Patient denies any tobacco usage or history of. ROS: 16:10 Constitutional: Negative for fever, chills, and weight loss. jmm 16:10 Cardiovascular: Negative for chest pain, palpitations, and edema, Respiratory: Negative for shortness of breath, cough, wheezing, and pleuritic chest pain, Abdomen/GI: Negative for abdominal pain, nausea, vomiting, diarrhea, and constipation. 16:10 ENT: Positive for dental pain. 16:10 All other systems are negative. Exam: 16:10 Constitutional: This is a well developed, well nourished patient who is awake, alert, jmm and in no acute distress. Head/Face: atraumatic. Eyes: EOMI, no conjunctival erythema appreciated 16:10 Chest/axilla: Normal chest wall appearance and motion. Cardiovascular: Regular rate and rhythm. No edema appreciated Respiratory: Normal respirations, no respiratory distress appreciated Abdomen/GI: Non distended Back: Normal ROM Skin: General appearance color normal MS/ Extremity: Moves all extremities, no obvious deformities appreciated, no edema noted to the lower extremities Neuro: Awake and alert Psych: Behavior is normal, Mood is normal, Patient is cooperative and pleasant 16:10 ENT: Dental exam: dental caries, that is moderate, specifically in the lower left third molar (#17) and lower left second molar (#18). Vital Signs: 16:05 Resp 18 S; Temp 99.0(O); Weight 113.4 kg (R); Height 5 ft. 7 in. (170.18 cm) (R); Pain kc6 710; 16:14 BP 120 / 67; Pulse 91; Resp 18 S; Pulse Ox 98% on R/A; kc6 16:05 Body Mass Index 39.16 (113.40 kg, 170.18 cm) kc6 MDM: 16:10 Patient medically screened. [facility] 16:11 Data reviewed: vital signs, nurses notes. Counseling: I had a detailed discussion with [facility] the patient and/or guardian regarding: the historical points, exam findings, and any diagnostic results supporting the discharge/admit diagnosis, the need for outpatient follow up, to return to the emergency department if symptoms worsen or persist or if there are any questions or concerns that arise at home. Administered Medications: 17:02 Drug: Ketorolac 30 mg Route: IM; Site: left deltoid; kc6 Disposition: 02/24 15:07 Co-signature as Attending Physician, Hermann Price MD. rn Disposition Summary: 02/23/22 16:43 Discharge Ordered Location: Home [facility] Condition: Stable [facility] Diagnosis - Dental Pain [facility] Followup: [facility] - With: Richard Cole DDS - When: 2 - 3 days - Reason: Recheck today's complaints, Continuance of care, Re-evaluation by your physician Discharge Instructions: - Discharge Summary Sheet [facility] - Dental Pain [facility] Forms: - Medication Reconciliation Form [facility] - Thank You Letter [facility] - Antibiotic Education [facility] - Prescription Opioid Use [facility] Prescriptions: - Amoxicillin 875 mg Oral Tablet - take 1 tablet by ORAL route every 12 hours for 10 days; 20 tablet; Refills: 0, [facility] Product Selection Permitted - Diclofenac Sodium 75 mg Oral Tablet Sustained Release - take 1 tablet by ORAL route 2 times per day; 30 tablet; Refills: 0, Product jm Selection Permitted Signatures: Scott Hannon PA PA jmm Nieto, Roman, MD MD rn Ariadna Fox RN RN kc6
[2022-02-23] MEDS ORDERED: KETOROLAC 30 MG/ML INJ ONE (16:59)
[2022-02-23 17:14] VITALS: TEMP 99
[2022-02-23 17:15] VITALS: BP 120/67; O2SAT 98
== END 2022-02-23 17:03 | disposition home or self-care (01) ==
LOC: ER 15:46
DX: K08.89 Other specified disorders of teeth and supporting structures (principal)
CPT/HCPCS: 96372; 99283

== ENCOUNTER 2022-04-04 12:03 | Emergency (ER) | payer OTHER ==
--- OUTSIDE RECORDS SUMMARY | 2022-04-04 12:18 | XMS REPORT | Continuity of Care Document ---
:1995 Author Organization [facility] t Address [address] [place] [address] Dr. Gallegos [address] [place] [id number] Care Team Providers Name Role Phone Paul Montero Primary Care Physician LIZETTE LUGO Attending Clinician Unavailable Lizette Patino Attending Clinician [phone] Naomi Souza MD Attending Clinician [phone] Kate Alexandre MD Attending Clinician Risk, Umx-Kxijh-Sr/High Attending Clinician Unavailable Mary Grace Beyer Attending Clinician Ultrasound, Juan-Mfjustine Attending Clinician Unavailable Dion Acosta MD Attending Clinician TONIO ECHOLS Attending Clinician Unavailable Jaclyn Duval MD Attending Clinician Radha Mehta MD Attending Clinician Doctor Unassigned, [place] Attending Clinician Unavailable ARSALAN BLANDON Attending Clinician Unavailable Arsalan Blandon DO Attending Clinician DAYDAY GRAHAM Attending Clinician Unavailable Lab, Ang-Rmchp Attending Clinician Unavailable Santos JOURNAL CLERK, Dayday Sanchez Attending Clinician Candice CNP, Tara [...] Unavailable Libby GOMEZ, Naomi Baig Admitting Clinician [phone] Jaclyn Duval MD Admitting Clinician Radha Mehta MD Admitting Clinician theresa Admitting Clinician Unavailable Altagracia Blandon MD Admitting Clinician Yas Cordero Admitting Clinician Payers Payer Name Policy Type Policy Number Effective Date Expiration Date Ashish leary [facility] [id number] 2020 00:00:00 MEDICAID PENDING PENDING 2020 00:00:00 Problems Condition Condition Condition Status Onset Resolution Last Treating Co mments Source Name Details Category Date Date Treatment Clinician Date Other Other Disease Active Univers general general 7-14 ity of counseling [place] and advice and advice 00 [place] dical for for Branch contracept contracept mark mark management management Well woman Well woman Disease Active U nivers exam exam 6-21 ity of 00:00: [place] 00 Medical Branch History of History of Disease Active U nivers tubal tubal 6-21 ity of ligation ligation 00:00: [place] 00 [facility] Single Single Disease Active Univers liveborn liveborn 5-30 ity of 00:00: [place] 00 [facility] Disease Active Univers (spontaneo (spontaneo 5-30 it y of us vaginal us vaginal 00:[place] delivery) delivery) 00 [facility] 37 weeks 37 weeks Disease Active Unive rs gestation gestation 5-28 ity of of of 00:00: [place] 00 [facility] 36 weeks 36 weeks Disease Active Unive rs gestation gestation 5-22 ity of of of 00:00: [place] 00 [facility] High-risk High-risk Disease Active Uni vers 5-20 ity of in third in third 00:00: [place] trimester trimester 00 [facility] Oral Oral Disease Active Univers hypoglycem hypoglycem 5-20 it y of ic ic 00:00: [place] controlled controlled 00 Me dical [place] classifica classifica tion A2 tion A2 gestationa gestationa l diabetes l diabetes mellitus mellitus (GDM) (GDM) Abnormal Abnormal Disease Active Unive rs finding in finding in 5-20 it y of urine urine 00:00: [place] 00 [facility] Hematuria, Hematuria, Disease Active U nivers unspecifie unspecifie 5-20 it y of d type d type 00:00: [place] 00 [facility] Diabetes Diabetes Disease Active Unive rs mellitus mellitus 3-18 ity of complicati complicati 00:[place] ng ng 00 Medical , , Br anch antepartum antepartum GDM GDM Disease Active Univers (gestation (gestation 3-18 it y of al al 00:00: [place] diabetes diabetes 00 Medica l mellitus) mellitus) Bran ch Abnormal Abnormal Disease Active Overview: Un indra maternal maternal 3-10 Formattin ity of glucose glucose 00:00: g of this [place] tolerance, tolerance, 00 note Me dical antepartum [...] (BMI 1-17 ity of 30-39.9) 30-39.9) 00:00: [place] [facility] Supervisio Supervisio Disease Active 2020- U nivers n of high n of high 1-17 ity of risk risk 00:00: [place] 00 [facility] in second in second Bran ch trimester trimester Multiparit Multiparit Disease Active 2019-02 U nivers y y 1-17 ity of 00:00: [place] [facility] Obesity Obesity Disease Active 2019-02 Univers complicati complicati 1-17 it y of ng ng 00:00: [place] , , 00 Me dical childbirth childbirth Br anch , or , or puerperium puerperium , , antepartum antepartum Tubal Tubal Disease Active 2019-02 Univers ligation ligation 1-17 ity of evaluation evaluation 00:00[place] 00 [facility] Refused Refused Disease Active 2019-02 Univers influenza influenza 1-17 ity of vaccine vaccine 00:00: [place] [facility] Elevated Elevated Disease Active 2019-02 Unive rs BP without BP without 1-17 it y of diagnosis diagnosis 00:00: [place] hinojosa of of 00 Medical hypertensi hypertensi Br anch on on Nausea and Nausea and Disease Active 2019- U nivers vomiting vomiting 1-17 ity of during during 00:00: [place] 00 [facility] Branch Disease Active 2019-02 Uni vers screening screening 1-17 ity of for Down for Down 00:00: [place] syndrome syndrome 00 Medica l declined declined Branch Obesity in Obesity in Disease Active 2020- U nivers 1-17 ity of 00:00: [place] [facility] Nexplanon Nexplanon Disease Active 2018-02 Overview: Univers removal removal 0-22 Placed ity of 00:00: 11/2018 [place] [id number] removed Medical 02/2019 Branch Well woman Well woman Disease Active 2019- U nivers exam exam 0-07 ity of 00:00: [place] [facility] Routine Routine Disease Active 2019 Univers 9-16 it y of follow-up follow-up 00:00: [place] hinojosa Medical Branch Anemia, Anemia, Disease Active 2019 Univers 8-26 it y of 00:00: [place] [facility] Anemia, Anemia, Disease Active Univers 8-26 it y of 00:00: [place] [facility] 38 weeks 38 weeks Disease Active Unive rs gestation gestation 8-25 ity of of of 00:00: [place] 00 [facility] Branch Nausea & Nausea & Disease Active Unive rs vomiting vomiting 8-25 ity of 00:00: [place] [address] Medical Branch Encounter Encounter Disease Active Uni vers for for 8-25 ity of induction induction 00:00: [place] s of labor of labor 00 Medica l Branch Obesity Obesity Disease Active Univers (BMI (BMI 8-12 ity of 30-39.9) 30-39.9) 00:00: [place] [address] Medical Branch Decreased Decreased Disease Active Uni vers 8-12 ity of movements movements 00:00: [place] in third in third 00 Medica l trimester trimester Bran ch 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:00: [place] 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 00 [facility] Branch affecting affecting Pain of Pain of Disease Active Univers round round 5-20 ity of ligament ligament 00:00: [place] affecting affecting 00 [facility] , , Br anch antepartum antepartum Vaginal Vaginal Disease Active Univers yeast yeast 3-13 ity of infection infection 00:[place] Headache Headache Disease Active Unive rs in in 3-04 [place] Nausea and Nausea and Disease Active U nivers vomiting vomiting 2-04 ity of during during 00:00: [place] 00 [facility] Branch Chlamydia Chlamydia Disease Active Overview: Univers [...] 0-22 it y of status, status, 00:00: [place] antepartum antepartum 00 Me dical Branch Obesity Obesity Disease Active 2013-02 Overview: Univ ers affecting affecting 0-21 Formattin i ty of 00:00: [place] this [place] in third in third 00 note Medica l trimester trimester might be Br anch different from the original. 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 Supervisio Supervisio Disease Active 2013-02 U nivers n of n of 0-21 ity of high-risk high-risk 00:[place] [facility] Nausea and Nausea and Disease Resolve 2013-022018-02-20 2018-02-20 [facility] vomiting vomiting d 0-21 00:00:00 21:38:10 it y of in in 00:00: [place] 00 [facility] prior to prior to Branch 22 weeks 22 weeks gestation gestation Allergies, Adverse Reactions, Alerts Allergy Allergy Status Severity Reaction(s) Onset Inactive Treating Comm ents Source Name Type Date Date Clinician No Known DA Active U 2020-0 [facility]ie 4[facility]18 [place] 00:[facility]: e 00 Medical [place] No Known DA Active U 2020-0 [facility] Allergie 4-18 [place] 00 Medical [place] NO KNOWN Drug Active Univers ALLERGIE Class ity of S [facility] Social History Social Habit Start Date Stop Date Quantity Comments Source ASSERTION 2019-11-08 University of 00:00:00 [facility] Exposure to Not sure University of SARS-CoV-2 [facility] (event) Branch Alcohol intake 2020-08-30 2020-08-30 Current University of 00:00:00 00:00:00 non-drinker of [facility] alcohol Branch (finding) Tobacco use and 2020-08-30 2020-08-30 Never used Universit y of exposure 00:00:00 00:00:00 [facility] Sex Ass[birth year] At [birth year] Universit y of 00:00:00 00:00:00 [facility] Smoking Status Start Date Stop Date Source Never smoker [facility] Medications Ordered Filled Start Stop Current Ordering [...] 1951, Routine, Pain (scale 4-6), PACU
Fa cone healthy member approving Restricted medication : KELLEN KENNEDY ibuprofen Yes [id number] 600mg Take 1 Univers 600 mg 5-30 tablet by ity of tablet 00:00: mouth [place] 00 every 6 Medical (six) Branch hours as needed (Pain). Take with food or milk. docusate Yes [id number] 240mg Take 1 U nivers calcium 240 5-30 capsule by it y of mg capsule 00:00: mouth once [place] 00 daily as Medical needed for Branch Constipati on. ibuprofen Yes [id number] 600mg Take 1 Univers 600 mg 5-30 tablet by ity of tablet 00:00: mouth [place] 00 every 6 Medical (six) Branch hours as needed for Pain (scale 4-6). Yes [id number] 1{tbl} Take 1 Univers vitamin 5-30 tablet by ity of w/FA tablet 00:00: mouth [place] 00 daily. Medical Branch docusate Yes [id number] 240mg Take 1 U nivers calcium 240 5-30 capsule by it y of mg capsule 00:00: mouth once [place] 00 daily as Medical needed for Branch Constipati on. ferrous Yes [id number] 325mg Take 1 Un indra sulfate 325 5-30 tablet by ity of mg (65 mg 00:00: mouth 2 [place] iron) 00 (two) Medical tablet times Branch daily. ibuprofen Yes [id number] 600mg Take 1 Univers 600 mg 5-30 tablet by ity of tablet 00:00: mouth [place] 00 every 6 Medical (six) Branch hours as needed (Pain). Take with food or milk. docusate Yes [id number] 240mg Take 1 U nivers calcium 240 5-30 capsule by it y of mg capsule 00:00: mouth once [place] 00 daily as Medical needed for Branch Constipati on. ibuprofen Yes [id number] 600mg Take 1 Univers 600 mg 5-30 tablet by ity of tablet 00:00: mouth [place] 00 every 6 Medical (six) Branch hours as needed for Pain (scale 4-6). Yes [id number] 1{tbl} Take 1 Univers vitamin 5-30 tablet by ity of w/FA tablet 00:00: mouth [place] 00 daily. Medical Branch docusate Yes [id number] 240mg Take 1 U nivers calcium 240 5-30 capsule by it y of mg capsule 00:00: mouth once [place] 00 daily as Medical needed for Branch Constipati on. ferrous Yes [id number] 325mg Take 1 Un indra sulfate 325 5-30 tablet by ity of mg (65 mg 00:00: mouth 2 [place] iron) 00 (two) Medical tablet times Branch daily. ibuprofen Yes [id number] 600mg Take 1 Univers 600 mg 5-30 tablet by ity of tablet 00:00: mouth [place] 00 every 6 Medical (six) Branch hours as needed (Pain). Take with food or milk. docusate Yes [id number] 240mg Take 1 U nivers calcium 240 5-30 capsule by it y of mg capsule 00:00: mouth once [place] 00 daily as Medical needed for Branch Constipati on. ibuprofen Yes [id number] 600mg Take 1 Univers 600 mg 5-30 tablet by ity of tablet 00:00: mouth [place] 00 every 6 Medical (six) Branch hours as needed for Pain (scale 4-6). Yes [id number] 1{tbl} Take 1 Univers vitamin 5-30 tablet by ity of w/FA tablet 00:00: mouth [place] 00 daily. Medical Branch docusate Yes [id number] 240mg Take 1 U nivers calcium 240 5-30 capsule by it y of mg capsule 00:00: mouth once [place] 00 daily as Medical needed for Branch Constipati on. ferrous Yes [id number] 325mg Take 1 Un indra sulfate 325 5-30 tablet by ity of mg (65 mg 00:00: mouth 2 [place] iron) 00 (two) Medical tablet times Branch daily. ibuprofen Yes [id number] 600mg Take 1 Univers 600 mg 5-30 tablet by ity of tablet 00:00: mouth [place] 00 every 6 Medical (six) Branch hours as needed (Pain). Take with food or milk. docusate Yes [id number] 240mg Take 1 U nivers calcium 240 5-30 capsule by it y of mg capsule 00:00: mouth once [place] 00 daily as Medical needed for Branch Constipati on. ibuprofen 0 Yes [id number] 600mg Take 1 Univers 600 mg 5-30 tablet by ity of tablet 00:00: mouth [place] 00 every 6 Medical (six) Branch hours as needed for Pain (scale 4-6). Yes [id number] 1{tbl} Take 1 Univers vitamin 5-30 tablet by ity of w/FA tablet 00:00: mouth [place] 00 daily. Medical Branch docusate Yes [id number] 240mg Take 1 U nivers calcium 240 5-30 capsule by it y of mg capsule 00:00: mouth once [place] 00 daily as Medical needed for Branch Constipati on. ferrous Yes [id number] 325mg Take 1 Un indra sulfate 325 5-30 tablet by ity of mg (65 mg 00:00: mouth 2 [place] iron) 00 (two) Medical tablet times Branch daily. ibuprofen Yes [id number] 600mg Take 1 Univers 600 mg 5-30 tablet by ity of tablet 00:00: mouth [place] 00 every 6 Medical (six) Branch hours as needed (Pain). Take with food or milk. docusate Yes [id number] 240mg Take 1 U nivers calcium 240 5-30 capsule by it y of mg capsule 00:00: mouth once [place] 00 daily as Medical needed for Branch Constipati on. ibuprofen Yes [id number] 600mg Take 1 Univers 600 mg 5-30 tablet by ity of tablet 00:00: mouth [place] 00 every 6 Medical (six) Branch hours as needed for Pain (scale 4-6). Yes [id number] 1{tbl} Take 1 Univers vitamin 5-30 tablet by ity of w/FA tablet 00:00: mouth [place] 00 daily. Medical Branch docusate Yes [id number] 240mg Take 1 U nivers calcium 240 5-30 capsule by it y of mg capsule 00:00: mouth once [place] 00 daily as Medical needed for Branch Constipati on. ferrous Yes [id number] 325mg Take 1 Un indra sulfate 325 5-30 tablet by ity of mg (65 mg 00:00: mouth 2 [place] iron) 00 (two) Medical tablet times Branch daily. ibuprofen Yes [id number] 600mg Take 1 Univers 600 mg 5-30 tablet by ity of tablet 00:00: mouth [place] 00 every 6 Medical (six) Branch hours as needed (Pain). Take with food or milk. docusate Yes [id number] 240mg Take 1 U nivers calcium 240 5-30 capsule by it y of mg capsule 00:00: mouth once [place] 00 daily as Medical needed for Branch Constipati on. ibuprofen Yes [id number] 600mg Take 1 Univers 600 mg 5-30 tablet by ity of tablet 00:00: mouth [place] 00 every 6 Medical (six) Branch hours as needed for Pain (scale 4-6). Yes [id number] 1{tbl} Take 1 Univers vitamin 5-30 tablet by ity of w/FA tablet 00:00: mouth [place] 00 daily. Medical Branch docusate Yes [id number] 240mg Take 1 U nivers calcium 240 5-30 capsule by it y of mg capsule 00:00: mouth once [place] 00 daily as Medical needed for Branch Constipati on. ferrous Yes [id number] 325mg Take 1 Un indra sulfate 325 5-30 tablet by ity of mg (65 mg 00:00: mouth 2 [place] iron) 00 (two) Medical tablet times Branch daily. ibuprofen Yes [id number] 600mg Take 1 Univers 600 mg 5-30 tablet by ity of tablet 00:00: mouth [place] 00 every 6 Medical (six) Branch hours as needed (Pain). Take with food or milk. docusate Yes [id number] 240mg Take 1 U nivers calcium 240 5-30 capsule by it y of mg capsule 00:00: mouth once [place] 00 daily as Medical needed for Branch Constipati on. ibuprofen Yes [id number] 600mg Take 1 Univers 600 mg 5-30 tablet by ity of tablet 00:00: mouth [place] 00 every 6 Medical (six) Branch hours as needed for Pain (scale 4-6). Yes [id number] 1{tbl} Take 1 Univers vitamin 5-30 tablet by ity of w/FA tablet 00:00: mouth [place] 00 daily. Medical Branch docusate Yes [id number] 240mg Take 1 U nivers calcium 240 5-30 capsule by it y of mg capsule 00:00: mouth once [place] 00 daily as Medical needed for Branch Constipati on. ferrous Yes [id number] 325mg Take 1 Un indra sulfate 325 5-30 tablet by ity of mg (65 mg 00:00: mouth 2 [place] iron) 00 (two) Medical tablet times Branch daily. ibuprofen Yes [id number] 600mg Take 1 Univers 600 mg 5-30 tablet by ity of tablet 00:00: mouth [place] 00 every 6 Medical (six) Branch hours as needed (Pain). Take with food or milk. docusate Yes [id number] 240mg Take 1 U nivers calcium 240 5-30 capsule by it y of mg capsule 00:00: mouth once [place] 00 daily as Medical needed for Branch Constipati on. ibuprofen Yes [id number] 600mg Take 1 Univers 600 mg 5-30 tablet by ity of tablet 00:00: mouth [place] 00 every 6 Medical (six) Branch hours as needed for Pain (scale 4-6). Yes [id number] 1{tbl} Take 1 Univers vitamin 5-30 tablet by ity of w/FA tablet 00:00: mouth [place] 00 daily. Medical Branch docusate Yes [id number] 240mg Take 1 U nivers calcium 240 5-30 capsule by it y of mg capsule 00:00: mouth once [place] 00 daily as Medical needed for Branch Constipati on. ferrous Yes [id number] 325mg Take 1 Un indra sulfate 325 5-30 tablet by ity of mg (65 mg 00:00: mouth 2 [place] iron) 00 (two) Medical tablet times Branch daily. ibuprofen Yes [id number] 600mg Take 1 Univers 600 mg 5-30 tablet by ity of tablet 00:00: mouth [place] 00 every 6 Medical (six) Branch hours as needed (Pain). Take with food or milk. docusate Yes [id number] 240mg Take 1 U nivers calcium 240 5-30 capsule by it y of mg capsule 00:00: mouth once [place] 00 daily as Medical needed for Branch Constipati on. ibuprofen Yes [id number] 600mg Take 1 Univers 600 mg 5-30 tablet by ity of tablet 00:00: mouth [place] 00 every 6 Medical (six) Branch hours as needed for Pain (scale 4-6). 2020- Yes [id number] 1{tbl} Take 1 Univers vitamin 5-30 tablet by ity of w/FA tablet 00:00: mouth [place] 00 daily. Medical Branch docusate Yes [id number] 240mg Take 1 U nivers calcium 240 5-30 capsule by it y of mg capsule 00:00: mouth once [place] 00 daily as Medical needed for Branch Constipati on. ferrous 2020-0 Yes [id number] 325mg Take 1 Un indra sulfate 325 5-30 tablet by ity of mg (65 mg 00:00: mouth 2 [place] iron) 00 (two) Medical tablet times Branch daily. ibuprofen Yes [id number] 600mg Take 1 Univers 600 mg 5-30 tablet by ity of tablet 00:00: mouth [place] 00 every 6 Medical (six) Branch hours as needed (Pain). Take with food or milk. docusate Yes [id number] 240mg Take 1 U nivers calcium 240 5-30 capsule by it y of mg capsule 00:00: mouth once [place] 00 daily as Medical needed for Branch Constipati on. ibuprofen Yes [id number] 600mg Take 1 Univers 600 mg 5-30 tablet by ity of tablet 00:00: mouth [place] 00 every 6 Medical (six) Branch hours as needed for Pain (scale 4-6). 2020-0 Yes [id number] 1{tbl} Take 1 Univers vitamin 5-30 tablet by ity of w/FA tablet 00:00: mouth [place] 00 daily. Medical Branch docusate 0 Yes [id number] 240mg Take 1 U nivers calcium 240 5-30 capsule by it y of mg capsule 00:00: mouth once [place] 00 daily as Medical needed for Branch Constipati on. ferrous 2020-0 Yes [id number] 325mg Take 1 Un indra sulfate 325 5-30 tablet by ity of mg (65 mg 00:00: mouth 2 [place] iron) 00 (two) Medical tablet times Branch daily. ibuprofen 0 Yes [id number] 600mg Take 1 Univers 600 mg 5-30 tablet by ity of tablet 00:00: mouth [place] 00 every 6 Medical (six) Branch hours as needed (Pain). Take with food or milk. docusate 0 Yes [id number] 240mg Take 1 U nivers calcium 240 5-30 capsule by it y of mg capsule 00:00: mouth once [place] 00 daily as Medical needed for Branch Constipati on. ibuprofen 2020-0 Yes [id number] 600mg Take 1 Univers 600 mg 5-30 tablet by ity of tablet 00:00: mouth [place] 00 every 6 Medical (six) Branch hours as needed for Pain (scale 4-6). 2020- Yes [id number] 1{tbl} Take 1 Univers vitamin 5-30 tablet by ity of w/FA tablet 00:00: mouth [place] 00 daily. Medical Branch docusate Yes [id number] 240mg Take 1 U nivers calcium 240 5-30 capsule by it y of mg capsule 00:00: mouth once [place] 00 daily as Medical needed for Branch Constipati on. ferrous Yes [id number] 325mg Take 1 Un indra sulfate 325 5-30 tablet by ity of mg (65 mg 00:00: mouth 2 [place] iron) 00 (two) Medical tablet times Branch daily. ibuprofen Yes [id number] 600mg Take 1 Univers 600 mg 5-30 tablet by ity of tablet 00:00: mouth [place] 00 every 6 Medical (six) Branch hours as needed (Pain). Take with food or milk. docusate Yes [id number] 240mg Take 1 U nivers calcium 240 5-30 capsule by it y of mg capsule 00:00: mouth once [place] 00 daily as Medical needed for Branch Constipati on. ibuprofen Yes [id number] 600mg Take 1 Univers 600 mg 5-30 tablet by ity of tablet 00:00: mouth [place] 00 every 6 Medical (six) Branch hours as needed for Pain (scale 4-6). 2020- Yes [id number] 1{tbl} Take 1 Univers vitamin 5-30 tablet by ity of w/FA tablet 00:00: mouth [place] 00 daily. Medical Branch docusate Yes [id number] 240mg Take 1 U nivers calcium 240 5-30 capsule by it y of mg capsule 00:00: mouth once [place] 00 daily as Medical needed for Branch Constipati on. ferrous 0 Yes [id number] 325mg Take 1 Un indra sulfate 325 5-30 tablet by ity of mg (65 mg 00:00: mouth 2 [place] iron) 00 (two) Medical tablet times Branch daily. ibuprofen Yes [id number] 600mg Take 1 Univers 600 mg 5-30 tablet by ity of tablet 00:00: mouth [place] 00 every 6 Medical (six) Branch hours as needed (Pain). Take with food or milk. docusate Yes [id number] 240mg Take 1 U nivers calcium 240 5-30 capsule by it y of mg capsule 00:00: mouth once [place] 00 daily as Medical needed for Branch Constipati on. ibuprofen Yes [id number] 600mg Take 1 Univers 600 mg 5-30 tablet by ity of tablet 00:00: mouth [place] 00 every 6 Medical (six) Branch hours as needed for Pain (scale 4-6). Yes [id number] 1{tbl} Take 1 Univers vitamin 5-30 tablet by ity of w/FA tablet 00:00: mouth [place] 00 daily. Medical Branch docusate Yes [id number] 240mg Take 1 U nivers calcium 240 5-30 capsule by it y of mg capsule 00:00: mouth once [place] 00 daily as Medical needed for Branch Constipati on. ferrous Yes [id number] 325mg Take 1 Un indra sulfate 325 5-30 tablet by ity of mg (65 mg 00:00: mouth 2 [place] iron) 00 (two) Medical tablet times Branch daily. ibuprofen Yes [id number] 600mg Take 1 Univers 600 mg 5-30 tablet by ity of tablet 00:00: mouth [place] 00 every 6 Medical (six) Branch hours as needed (Pain). Take with food or milk. docusate Yes [id number] 240mg Take 1 U nivers calcium 240 5-30 capsule by it y of mg capsule 00:00: mouth once [place] 00 daily as Medical needed for Branch Constipati on. ibuprofen Yes [id number] 600mg Take 1 Univers 600 mg 5-30 tablet by ity of tablet 00:00: mouth [place] 00 every 6 Medical (six) Branch hours as needed for Pain (scale 4-6). Yes [id number] 1{tbl} Take 1 Univers vitamin 5-30 tablet by ity of w/FA tablet 00:00: mouth [place] 00 daily. Medical Branch docusate Yes [id number] 240mg Take 1 U nivers calcium 240 5-30 capsule by it y of mg capsule 00:00: mouth once [place] 00 daily as Medical needed for Branch Constipati on. ferrous Yes [id number] 325mg Take 1 Un nidra sulfate 325 5-30 tablet by ity of mg (65 mg 00:00: mouth 2 [place] iron) 00 (two) Medical tablet times Branch daily. ibuprofen Yes [id number] 600mg Take 1 Univers 600 mg 5-30 tablet by ity of tablet 00:00: mouth [place] 00 every 6 Medical (six) Branch hours as needed (Pain). Take with food or milk. docusate Yes [id number] 240mg Take 1 U nivers calcium 240 5-30 capsule by it y of mg capsule 00:00: mouth once [place] 00 daily as Medical needed for Branch Constipati on. ibuprofen Yes [id number] 600mg Take 1 Univers 600 mg 5-30 tablet by ity of tablet 00:00: mouth [place] 00 every 6 Medical (six) Branch hours as needed for Pain (scale 4-6). Yes [id number] 1{tbl} Take 1 Univers vitamin 5-30 tablet by ity of w/FA tablet 00:00: mouth [place] 00 daily. Medical Branch docusate Yes [id number] 240mg Take 1 U nivers calcium 240 5-30 capsule by it y of mg capsule 00:00: mouth once [place] 00 daily as Medical needed for Branch Constipati on. ferrous Yes [id number] 325mg Take 1 Un indra sulfate 325 5-30 tablet by ity of mg (65 mg 00:00: mouth 2 [place] iron) 00 (two) Medical tablet times Branch daily. acetaminoph 2021- No [id number] 650mg Take 2 Univers en 325 mg 5-30 05-31 tablets by ity of tablet 00:00: 04:59 mouth [place] 00 :00 every 6 Medical (six) Branch hours as needed for Pain (scale 1-3). acetaminoph 2021- No [id number] 650mg Take 2 [facility] 325 mg 5-30 05-31 tablets by ity of tablet 00:00: 04:59 mouth [place] 00 :00 every 6 Medical (six) Branch hours as needed for Pain (scale 1-3). acetaminoph 2021- No [id number] 650mg Take 2 [facility] en 325 mg 5-30 05-31 tablets by ity of tablet 00:00: 04:59 mouth [place] 00 :00 every 6 Medical (six) Branch hours as needed for Pain (scale 1-3). acetaminoph 2021- No [id number] 650mg Take 2 [facility] en 325 mg 5-30 05-31 tablets by ity of tablet 00:00: 04:59 mouth [place] 00 :00 every 6 Medical (six) Branch hours as needed for Pain (scale 1-3). acetaminoph 2021- No [id number] 650mg Take 2 [facility] en 325 mg 5-30 05-31 tablets by ity of tablet 00:00: 04:59 mouth [place] 00 :00 every 6 Medical (six) Branch hours as needed for Pain (scale 1-3). acetaminoph 2021- No [id number] 650mg Take 2 [facility] en 325 mg 5-30 05-31 tablets by ity of tablet 00:00: 04:59 mouth [place] 00 :00 every 6 Medical (six) Branch hours as needed for Pain (scale 1-3). acetaminoph 2021- No [id number] 650mg Take 2 [facility] en 325 mg 5-30 05-31 tablets by ity of tablet 00:00: 04:59 mouth [place] 00 :00 every 6 Medical (six) Branch hours as needed for Pain (scale 1-3). acetaminoph 2021- No [id number] 650mg Take 2 [facility] en 325 mg 5-30 05-31 tablets by ity of tablet 00:00: 04:59 mouth [place] 00 :00 every 6 Medical (six) Branch hours as needed for Pain (scale 1-3). acetaminoph 2021- No [id number] 650mg Take 2 [facility] en 325 mg 5-30 05-31 tablets by ity of tablet 00:00: 04:59 mouth [place] 00 :00 every 6 Medical (six) Branch hours as needed for Pain (scale 1-3). acetaminoph 2021- No [id number] 650mg Take 2 [facility] en 325 mg 5-30 05-31 tablets by ity of tablet 00:00: 04:59 mouth [place] 00 :00 every 6 Medical (six) Branch hours as needed for Pain (scale 1-3). acetaminoph 2021- No [id number] 650mg Take 2 [facility] en 325 mg 5-30 05-31 tablets by ity of tablet 00:00: 04:59 mouth [place] 00 :00 every 6 Medical (six) Branch hours as needed for Pain (scale 1-3). acetaminoph 2020-2021- No [id number] 650mg Take 2 [facility] en 325 mg 5-30 05-31 tablets by ity of tablet 00:00: 04:59 mouth [place] 00 :00 every 6 Medical (six) Branch hours as needed for Pain (scale 1-3). acetaminoph 2021- No [id number] 650mg Take 2 [facility] en 325 mg 5-30 05-31 tablets by ity of tablet 00:00: 04:59 mouth [place] 00 :00 every 6 Medical (six) Branch hours as needed for Pain (scale 1-3). acetaminoph 2021- No [id number] 650mg Take 2 [facility] en 325 mg 5-30 05-31 tablets by ity of tablet 00:00: 04:59 mouth [place] 00 :00 every 6 Medical (six) Branch hours as needed for Pain (scale 1-3). acetaminoph 2021- No [id number] 650mg Take 2 [facility] en 325 mg 5-30 05-31 tablets by ity of tablet 00:00: 04:59 mouth [place] 00 :00 every 6 Medical (six) Branch hours as needed for Pain (scale 1-3). bupivacaine Yes PRN, Univer s (preserv 07-15 Starting ity of free) 23:06: [facility] (SENSORCAIN 00 07/15/20 at [facility]) 0.25 1806, Branch % (2.5 Until mg/mL) Discontinu injection ed, Routine, Intra-op bupivacaine 2020- No PRN, Unive rs (preserv 07-15-30 Starting ity of free) 23:06: 21:14 [facility] (SENSORCAIN 00 :16 [facility] 0.25 1806, Branch % (2.5 Until Sun mg/mL) 07/16/20 at injection 1614, Routine, Intra-op ibuprofen Yes 600mg 600 mg, Univ ers (IBU) 07-15 Oral, ity of tablet 600 19:22: Q6HPRN[place] 05 Starting Medical [facility] Branch 07/15/20 at 1422, Until Discontinu ed, Routine, Pain (scale 4-6) ibuprofen 2020- No 600mg 600 mg, Uni vers (IBU) 07-15 Oral, ity of tablet 600 19:22: 21:14 Q6HPRN, [place] mg 05 :16 Starting Medical [facility] 07/15/20 at 1422, Until 07/16/20 at 1614, Routine, Pain (scale 4-6) ibuprofen 2020- No 600mg 600 mg, Uni vers (IBU) 07-15 Oral, ity of tablet 600 19:22: 19:25 ONCE, 1 [place] as mg 00 :00 dose, [facility] 07/15/20 at Branch 1430, Routine ondansetron 2020- [...] First dose Medi nba 40 mg on [facility] Branch 07/15/20 at 0900, Until Discontinu ed, Routine pantoprazol 2020- No 40mg 40 mg, Uni vers e 07-15 Oral, ity of (PROTONIX) 14:00: 21:14 DAILY, [place] EC tablet 00 :16 First dose Medi nba 40 mg on [facility] 07/15/20 at 0900, Until Discontinu ed, Routine [...] ity of en-caff 07:15: 06:20 ONCE, 1 [place] (ESGIC) 00 :00 dose, Sat Medical 50-325-40 [...] Until Discontinu ed, Routine, Surgery/Pr ocedure metroNIDAZO 0 Yes [id number] 500mg Take 1 Univers LE 500 mg 5-23 9109 tablet by ity o f tablet 00:00: mouth 2 [place] 00 (two) Medical times Branch daily. metroNIDAZO 0 2020- No [id number] 500mg Take 1 [facility] LE 500 mg 5-23 05-30 9109 tablet by ity of tablet 00:00: 00:00 mouth 2 [place] 00 :00 (two) Medical times Branch daily. metroNIDAZO 2020- No [id number] 500mg Take 1 [facility] LE 500 mg [...] for Nausea and Vomiting (N/V). glyBURIDE Yes [id number] Take 1 tab Univers 2.5 mg 5-06 PO AC ity of tablet 00:00: breakfast [place] 00 and 1 tab Medical PO HS with Branch snack pantoprazol Yes [id number] 40mg Take 1 Univers e 5-06 tablet by ity of (PROTONIX) 00:00: mouth [place] 40 mg EC 00 daily. Medical tablet Branch proMETHazin 0 Yes [id number] 25mg Take 1 Univers e 25 mg 5-06 tablet by ity of tablet 00:00: mouth [place] 00 every 6 Medical (six) Branch hours as needed for Nausea and Vomiting (N/V). glyBURIDE 0 Yes [id number] Take 1 tab Univers 2.5 mg 5-06 PO AC ity of tablet 00:00: breakfast [place] 00 and 1 tab Medical PO HS with Branch snack pantoprazol 0 Yes [id number] 40mg Take 1 Univers e 5-06 tablet by ity of (PROTONIX) 00:00: mouth [place] 40 mg EC 00 daily. Medical tablet Branch proMETHazin 0 Yes [id number] 25mg Take 1 Univers e 25 mg 5-06 tablet by ity of tablet 00:00: mouth [place] 00 every 6 Medical (six) Branch hours as needed for Nausea and Vomiting (N/V). glyBURIDE 2020-0 Yes [id number] Take 1 tab Univers 2.5 mg 5-06 PO AC ity of tablet 00:00: breakfast [place] 00 and 1 tab Medical PO HS with Branch snack pantoprazol 2020-0 Yes [id number] 40mg Take 1 Univers e 5-06 tablet by ity of (PROTONIX) 00:00: mouth [place] 40 mg EC 00 daily. Medical tablet Branch proMETHazin 0 Yes [id number] 25mg Take 1 Univers e 25 mg 5-06 tablet by ity of tablet 00:00: mouth [place] 00 every 6 Medical (six) Branch hours as needed for Nausea and Vomiting (N/V). glyBURIDE 2020-0 Yes [id number] Take 1 tab Univers 2.5 mg 5-06 PO AC ity of tablet 00:00: breakfast [place] 00 and 1 tab Medical PO HS with Branch snack pantoprazol 0 Yes [id number] 40mg Take 1 Univers e 5-06 tablet by ity of (PROTONIX) 00:00: mouth [place] 40 mg EC 00 daily. Medical tablet Branch proMETHazin 0 Yes [id number] 25mg Take 1 Univers e 25 mg 5-06 tablet by ity of tablet 00:00: mouth [place] 00 every 6 Medical (six) Branch hours as needed for Nausea and Vomiting (N/V). glyBURIDE 2020-0 Yes [id number] Take 1 tab Univers 2.5 mg 5-06 PO AC ity of tablet 00:00: breakfast [place] 00 and 1 tab Medical PO HS with Branch snack pantoprazol 0 Yes [id number] 40mg Take 1 Univers e 5-06 tablet by ity of (PROTONIX) 00:00: mouth [place] 40 mg EC 00 daily. Medical tablet Branch proMETHazin 0 Yes [id number] 25mg Take 1 Univers e 25 mg 5-06 tablet by ity of tablet 00:00: mouth [place] 00 every 6 Medical (six) Branch hours as needed for Nausea and Vomiting (N/V). glyBURIDE 2020-0 Yes [id number] Take 1 tab Univers 2.5 mg 5-06 PO AC ity of tablet 00:00: breakfast [place] 00 and 1 tab Medical PO HS with Branch snack pantoprazol 0 Yes [id number] 40mg Take 1 Univers e 5-06 tablet by ity of (PROTONIX) 00:00: mouth [place] 40 mg EC 00 daily. Medical tablet Branch proMETHazin 0 Yes [id number] 25mg Take 1 Univers e 25 mg 5-06 tablet by ity of tablet 00:00: mouth [place] 00 every 6 Medical (six) Branch hours as needed for Nausea and Vomiting (N/V). glyBURIDE 0 Yes [id number] Take 1 tab Univers 2.5 mg 5-06 PO AC ity of tablet 00:00: breakfast [place] 00 and 1 tab Medical PO HS with Branch snack pantoprazol Yes [id number] 40mg Take 1 Univers e 5-06 tablet by ity of (PROTONIX) 00:00: mouth [place] 40 mg EC 00 daily. Medical tablet Branch proMETHazin Yes [id number] 25mg Take 1 Univers e 25 mg 5-06 tablet by ity of tablet 00:00: mouth [place] 00 every 6 Medical (six) Branch hours as needed for Nausea and Vomiting (N/V). glyBURIDE Yes [id number] Take 1 tab Univers 2.5 mg 5-06 PO AC ity of tablet 00:00: breakfast [place] 00 and 1 tab Medical PO HS with Branch snack pantoprazol 0 Yes [id number] 40mg Take 1 Univers e 5-06 tablet by ity of (PROTONIX) 00:00: mouth [place] 40 mg EC 00 daily. Medical tablet Branch proMETHazin 0 Yes [id number] 25mg Take 1 Univers e 25 mg 5-06 tablet by ity of tablet 00:00: mouth [place] 00 every 6 Medical (six) Branch hours as needed for Nausea and Vomiting (N/V). glyBURIDE 2020-0 Yes [id number] Take 1 tab Univers 2.5 mg 5-06 PO AC ity of tablet 00:00: breakfast [place] 00 and 1 tab Medical PO HS with Branch snack pantoprazol 0 Yes [id number] 40mg Take 1 Univers e 5-06 tablet by ity of (PROTONIX) 00:00: mouth [place] 40 mg EC 00 daily. Medical tablet Branch proMETHazin 0 Yes [id number] 25mg Take 1 Univers e 25 mg 5-06 tablet by ity of tablet 00:00: mouth [place] 00 every 6 Medical (six) Branch hours as needed for Nausea and Vomiting (N/V). glyBURIDE 2020-0 Yes [id number] Take 1 tab [facility] 2.5 mg 5-06 PO AC ity of tablet 00:00: breakfast [place] 00 and 1 tab Medical PO HS with Branch snack pantoprazol 2020-0 Yes [id number] 40mg Take 1 Univers e 5-06 tablet by ity of (PROTONIX) 00:00: mouth [place] 40 mg EC 00 daily. Medical tablet Branch proMETHazin 0 Yes [id number] 25mg Take 1 Univers e 25 mg 5-06 tablet by ity of tablet 00:00: mouth [place] 00 every 6 Medical (six) Branch hours as needed for Nausea and Vomiting (N/V). glyBURIDE 2020-0 Yes [id number] Take 1 tab Univers 2.5 mg 5-06 PO AC ity of tablet 00:00: breakfast [place] 00 and 1 tab Medical PO HS with Branch snack pantoprazol 0 Yes [id number] 40mg Take 1 Univers e 5-06 tablet by ity of (PROTONIX) 00:00: mouth [place] 40 mg EC 00 daily. Medical tablet Branch proMETHazin 0 Yes [id number] 25mg Take 1 [facility] e 25 mg 5-06 tablet by ity of tablet 00:00: mouth [place] 00 every 6 Medical (six) Branch hours as needed for Nausea and Vomiting (N/V). glyBURIDE 2020-0 Yes [id number] Take 1 tab Univers 2.5 mg 5-06 PO AC ity of tablet 00:00: breakfast [place] 00 and 1 tab Medical PO HS with Branch snack pantoprazol 2020-0 Yes [id number] 40mg Take 1 Univers e 5-06 tablet by ity of (PROTONIX) 00:00: mouth [place] 40 mg EC 00 daily. Medical tablet Branch proMETHazin 0 Yes [id number] 25mg Take 1 Univers e 25 mg 5-06 tablet by ity of tablet 00:00: mouth [place] 00 every 6 Medical (six) Branch hours as needed for Nausea and Vomiting (N/V). glyBURIDE 2020-0 Yes [id number] Take 1 tab Univers 2.5 mg 5-06 PO AC ity of tablet 00:00: breakfast [place] 00 and 1 tab Medical PO HS with Branch snack pantoprazol Yes [id number] 40mg Take 1 Univers e 5-06 tablet by ity of (PROTONIX) 00:00: mouth [place] 40 mg EC 00 daily. Medical tablet Branch proMETHazin Yes [id number] 25mg Take 1 Univers e 25 mg [...] al tablet trimester Branch glyBURIDE 2020- No [id number] Take 1 tab Univers 2.5 mg 5-06 05-30 PO AC ity of tablet 00:00: 00:00 breakfast [place] 00 :00 and 1 tab Medical PO HS with Branch snack pantoprazol 2020- No [id number] 40mg Take 1 Univers e 5-06 05-30 tablet by ity of (PROTONIX) 00:00: 00:00 mouth [place] 40 mg EC 00 :00 daily. Medical tablet Branch proMETHazin 2020- No [id number] 25mg Take 1 Univers e 25 mg 5-06 05-30 tablet by ity of tablet 00:00: 00:00 mouth [place] 00 :00 every 6 Medical (six) Branch hours as needed for Nausea and Vomiting (N/V). glyBURIDE 2020- No [id number] Take 1 tab Univers 2.5 mg 5-06 05-30 PO AC ity of tablet 00:00: 00:00 breakfast [place] 00 :00 and 1 tab Medical PO HS with Branch snack pantoprazol 2020- No [id number] 40mg Take 1 Univers e 5-06 05-30 tablet by ity of (PROTONIX) 00:00: 00:00 mouth [place] 40 mg EC 00 :00 daily. Medical tablet Branch proMETHazin 2020- No [id number] 25mg Take 1 Univers e 25 mg [...] h (GDM) in second trimester Blood-Gluco Yes [id number] Check U nivers se Meter 3-18 blood ity of (ONETOUCH 00:00: glucose 4x [place] ULTRA2 00 dialy Medical METER) Kit Branch Lancets Yes [id number] Check Unive rs (ONETOUCH 3-18 blood ity of ULTRASOFT 00:00: glucose 4x [place] LANCETS) 00 daily Medical Misc Branch blood sugar Yes [id number] Check U nivers diagnostic 3-18 blood ity of (ONETOUCH 00:00: glucose 4x [place] VERIO TEST 00 daily Medical STRIPS) Branch strip Blood-Gluco Yes [id number] Check U nivers se Meter 3-18 blood ity of (ONETOUCH 00:00: glucose 4x [place] ULTRA2 00 dialy Medical METER) Kit Branch Lancets Yes [id number] Check Unive rs (ONETOUCH 3-18 blood ity of ULTRASOFT 00:00: glucose 4x [place] LANCETS) 00 daily Medical Misc Branch blood sugar Yes [id number] Check U nivers diagnostic 3-18 blood ity of (ONETOUCH 00:00: glucose 4x [place] VERIO TEST 00 daily Medical STRIPS) Branch strip Blood-Gluco Yes [id number] Check U nivers se Meter 3-18 blood ity of (ONETOUCH 00:00: glucose 4x [place] ULTRA2 00 dialy Medical METER) Kit Branch Lancets Yes [id number] Check Unive rs (ONETOUCH 3-18 blood ity of ULTRASOFT 00:00: glucose 4x [place] LANCETS) 00 daily Medical Misc Branch blood sugar Yes [id number] Check U nivers diagnostic 3-18 blood ity of (ONETOUCH 00:00: glucose 4x [place] VERIO TEST 00 daily Medical STRIPS) Branch strip Blood-Gluco Yes [id number] Check U nivers se Meter 3-18 blood ity of (ONETOUCH 00:00: glucose 4x [place] ULTRA2 00 dialy Medical METER) Kit Branch Lancets Yes [id number] Check Unive rs (ONETOUCH 3-18 blood ity of ULTRASOFT 00:00: glucose 4x [place] LANCETS) 00 daily Medical [facility] Branch blood sugar Yes [id number] Check U nivers diagnostic 3-18 blood ity of (ONETOUCH 00:00: glucose 4x [place] VERIO TEST 00 daily Medical STRIPS) Branch strip Blood-Gluco Yes [id number] Check U nivers se Meter 3-18 blood ity of (ONETOUCH 00:00: glucose 4x [place] ULTRA2 00 dialy Medical METER) Kit Branch Lancets Yes [id number] Check Unive rs (ONETOUCH 3-18 blood ity of ULTRASOFT 00:00: glucose 4x [place] LANCETS) 00 daily Medical [facility] Branch blood sugar Yes [id number] Check U nivers diagnostic 3-18 blood ity of (ONETOUCH 00:00: glucose 4x [place] VERIO TEST 00 daily Medical STRIPS) Branch strip Blood-Gluco Yes [id number] Check U nivers se Meter 3-18 blood ity of (ONETOUCH 00:00: glucose 4x [place] ULTRA2 00 dialy Medical METER) Kit Branch Lancets Yes [id number] Check Unive rs (ONETOUCH 3-18 blood ity of ULTRASOFT 00:00: glucose 4x [place] LANCETS) 00 daily Medical [facility] Branch blood sugar Yes [id number] Check U nivers diagnostic 3-18 blood ity of (ONETOUCH 00:00: glucose 4x [place] VERIO TEST 00 daily Medical STRIPS) Branch strip Blood-Gluco Yes [id number] Check U nivers se Meter 3-18 blood ity of (ONETOUCH 00:00: glucose 4x [place] ULTRA2 00 dialy Medical METER) Kit Branch Lancets Yes [id number] Check Unive rs (ONETOUCH 3-18 blood ity of ULTRASOFT 00:00: glucose 4x [place] LANCETS) 00 daily Medical [facility] Branch blood sugar Yes [id number] Check U nivers diagnostic 3-18 blood ity of (ONETOUCH 00:00: glucose 4x [place] VERIO TEST 00 daily Medical STRIPS) Branch strip Blood-Gluco Yes [id number] Check U nivers se Meter 3-18 blood ity of (ONETOUCH 00:00: glucose 4x [place] ULTRA2 00 dialy Medical METER) Kit Branch Lancets Yes [id number] Check Unive rs (ONETOUCH 3-18 blood ity of ULTRASOFT 00:00: glucose 4x [place] LANCETS) 00 daily Medical [facility] Branch blood sugar Yes [id number] Check U nivers diagnostic 3-18 blood ity of (ONETOUCH 00:00: glucose 4x [place] VERIO TEST 00 daily Medical STRIPS) Branch strip Blood-Gluco Yes [id number] Check U nivers se Meter 3-18 blood ity of (ONETOUCH 00:00: glucose 4x [place] ULTRA2 00 dialy Medical METER) Kit Branch Lancets Yes [id number] Check Unive rs (ONETOUCH 3-18 blood ity of ULTRASOFT 00:00: glucose 4x [place] LANCETS) 00 daily Medical [facility] Branch blood sugar Yes [id number] Check U nivers diagnostic 3-18 blood ity of (ONETOUCH 00:00: glucose 4x [place] VERIO TEST 00 daily Medical STRIPS) Branch strip Blood-Gluco Yes [id number] Check U nivers se Meter 3-18 blood ity of (ONETOUCH 00:00: glucose 4x [place] ULTRA2 00 dialy Medical METER) Kit Branch Lancets Yes [id number] Check Unive rs (ONETOUCH 3-18 blood ity of ULTRASOFT 00:00: glucose 4x [place] LANCETS) 00 daily Medical [facility] Branch blood sugar 2021-0 Yes [id number] Check U nivers diagnostic 3-18 blood ity of (ONETOUCH 00:00: glucose 4x [place] VERIO TEST 00 daily Medical STRIPS) Branch strip Blood-Gluco 0 Yes [id number] Check U nivers se Meter 3-18 blood ity of (ONETOUCH 00:00: glucose 4x [place] ULTRA2 00 dialy Medical METER) Kit Branch Lancets Yes [id number] Check Unive rs (ONETOUCH 3-18 blood ity of ULTRASOFT 00:00: glucose 4x [place] LANCETS) 00 daily Medical [facility] Branch blood sugar 0 Yes [id number] Check U nivers diagnostic 3-18 blood ity of (ONETOUCH 00:00: glucose 4x [place] VERIO TEST 00 daily Medical STRIPS) Branch strip Blood-Gluco Yes [id number] Check U nivers se Meter 3-18 blood ity of (ONETOUCH 00:00: glucose 4x [place] ULTRA2 00 dialy Medical METER) Kit Branch Lancets Yes [id number] Check Unive rs (ONETOUCH 3-18 blood ity of ULTRASOFT 00:00: glucose 4x [place] LANCETS) 00 daily Medical [facility] Branch blood sugar 0 Yes [id number] Check U nivers diagnostic 3-18 blood ity of (ONETOUCH 00:00: glucose 4x [place] VERIO TEST 00 daily Medical STRIPS) Branch strip Blood-Gluco Yes [id number] Check U nivers se Meter 3-18 blood ity of (ONETOUCH 00:00: glucose 4x [place] ULTRA2 00 dialy Medical METER) Kit Branch Lancets Yes [id number] Check Unive rs (ONETOUCH 3-18 blood ity of ULTRASOFT 00:00: glucose 4x [place] LANCETS) 00 daily Medical [facility] Branch blood sugar 0 Yes [id number] Check U nivers diagnostic 3-18 blood ity of (ONETOUCH 00:00: glucose 4x [place] VERIO TEST 00 daily Medical STRIPS) Branch strip Blood-Gluco Yes [id number] Check U nivers se Meter 3-18 blood ity of (ONETOUCH 00:00: glucose 4x [place] ULTRA2 00 dialy Medical METER) Kit Branch Lancets Yes [id number] Check Unive rs (ONETOUCH 3-18 blood ity of ULTRASOFT 00:00: glucose 4x [place] LANCETS) 00 daily Medical [facility] Branch blood sugar Yes [id number] Check U nivers diagnostic 3-18 blood ity of (ONETOUCH 00:00: glucose 4x [place] VERIO TEST 00 daily Medical STRIPS) Branch strip Blood-Gluco Yes [id number] Check U nivers se Meter 3-18 blood ity of (ONETOUCH 00:00: glucose 4x [place] ULTRA2 00 dialy Medical METER) Kit Branch Lancets Yes [id number] Check Unive rs (ONETOUCH 3-18 blood ity of ULTRASOFT 00:00: glucose 4x [place] LANCETS) 00 daily Medical [facility] Branch blood sugar Yes [id number] Check U nivers diagnostic 3-18 blood ity of (ONETOUCH 00:00: glucose 4x [place] VERIO TEST 00 daily Medical STRIPS) Branch strip Blood-Gluco Yes [id number] Check U nivers se Meter 3-18 blood ity of (ONETOUCH 00:00: glucose 4x [place] ULTRA2 00 dialy Medical METER) Kit Branch Lancets Yes [id number] Check Unive rs (ONETOUCH 3-18 blood ity of ULTRASOFT 00:00: glucose 4x [place] LANCETS) 00 daily Medical [facility] Branch blood sugar Yes [id number] Check U nivers diagnostic 3-18 blood ity of (ONETOUCH 00:00: glucose 4x [place] VERIO TEST 00 daily Medical STRIPS) Branch strip Blood-Gluco Yes [id number] Check U nivers se Meter 3-18 blood ity of (ONETOUCH 00:00: glucose 4x [place] ULTRA2 00 dialy Medical METER) Kit Branch Lancets Yes [id number] Check Unive rs (ONETOUCH 3-18 blood ity of ULTRASOFT 00:00: glucose 4x [place] LANCETS) 00 daily Medical [facility] Branch blood sugar Yes [id number] Check U nivers diagnostic 3-18 blood ity of (ONETOUCH 00:00: glucose 4x [place] VERIO TEST 00 daily Medical STRIPS) Branch strip Blood-Gluco Yes [id number] Check U nivers se Meter 3-18 blood ity of (ONETOUCH 00:00: glucose 4x [place] ULTRA2 00 dialy Medical METER) Kit Branch Lancets Yes [id number] Check Unive rs (ONETOUCH 3-18 blood ity of ULTRASOFT 00:00: glucose 4x [place] LANCETS) 00 daily Medical Misc Branch blood sugar 0 Yes [id number] Check U nivers diagnostic 3-18 blood ity of (ONETOUCH 00:00: glucose 4x [place] VERIO TEST 00 daily Medical STRIPS) Branch strip Blood-Gluco Yes [id number] Check U nivers se Meter 3-18 blood ity of (ONETOUCH 00:00: glucose 4x [place] ULTRA2 00 dialy Medical METER) Kit Branch Lancets Yes [id number] Check Unive rs (ONETOUCH 3-18 blood ity of ULTRASOFT 00:00: glucose 4x [place] LANCETS) 00 daily Medical Misc Branch blood sugar 0 Yes [id number] Check U nivers diagnostic 3-18 blood ity of (ONETOUCH 00:00: glucose 4x [place] VERIO TEST 00 daily Medical STRIPS) Branch strip Blood-Gluco Yes [id number] Check U nivers se Meter 3-18 blood ity of (ONETOUCH 00:00: glucose 4x [place] ULTRA2 00 dialy Medical METER) Kit Branch Lancets Yes [id number] Check Unive rs (ONETOUCH 3-18 blood ity of ULTRASOFT 00:00: glucose 4x [place] LANCETS) 00 daily Medical Misc Branch blood sugar 0 Yes [id number] Check U nivers diagnostic 3-18 blood ity of (ONETOUCH 00:00: glucose 4x [place] VERIO TEST 00 daily Medical STRIPS) Branch strip Blood-Gluco Yes [id number] Check U nivers se Meter 3-18 blood ity of (ONETOUCH 00:00: glucose 4x [place] ULTRA2 00 dialy Medical METER) Kit Branch Lancets Yes [id number] Check Unive rs (ONETOUCH 3-18 blood ity of ULTRASOFT 00:00: glucose 4x [place] LANCETS) 00 daily Medical Misc Branch blood sugar Yes [id number] Check U nivers diagnostic 3-18 blood ity of (ONETOUCH 00:00: glucose 4x [place] VERIO TEST 00 daily Medical STRIPS) Branch strip Blood-Gluco Yes [id number] Check U nivers se Meter 3-18 blood ity of (ONETOUCH 00:00: glucose 4x [place] ULTRA2 00 dialy Medical METER) Kit Branch Lancets Yes [id number] Check Unive rs (ONETOUCH 3-18 blood ity of ULTRASOFT 00:00: glucose 4x [place] LANCETS) 00 daily Medical Mis Branch blood sugar Yes [id number] Check U nivers diagnostic 3-18 blood ity of (ONETOUCH 00:00: glucose 4x [place] VERIO TEST 00 daily Medical STRIPS) Branch strip Blood-Gluco Yes [id number] Check U nivers se Meter 3-18 blood ity of (ONETOUCH 00:00: glucose 4x [place] ULTRA2 00 dialy Medical METER) Kit Branch Lancets Yes [id number] Check Unive rs (ONETOUCH 3-18 blood ity of ULTRASOFT 00:00: glucose 4x [place] LANCETS) 00 daily Medical [facility] Branch blood sugar Yes [id number] Check U nivers diagnostic 3-18 blood ity of (ONETOUCH 00:00: glucose 4x [place] VERIO TEST 00 daily Medical STRIPS) Branch strip Blood-Gluco Yes [id number] Check U nivers se Meter 3-18 blood ity of (ONETOUCH 00:00: glucose 4x [place] ULTRA2 00 dialy Medical METER) Kit Branch Lancets Yes [id number] Check Unive rs (ONETOUCH 3-18 blood ity of ULTRASOFT 00:00: glucose 4x [place] LANCETS) 00 daily Medical Misc Branch Lancets Yes Diet Check Univers (ONETOUCH 3-18 controlled blood ity of ULTRASOFT 00:00: gestational glucose 4x [place] LANCETS) 00 diabetes daily Medica l [facility] mellitus Branch (GDM) in second trimester blood sugar Yes [id number] Check U nivers diagnostic 3-18 blood ity of (ONETOUCH 00:00: glucose 4x [place] VERIO TEST 00 daily Medical STRIPS) Branch strip Blood-Gluco Yes [id number] Check U nivers se Meter 3-18 blood ity of (ONETOUCH 00:00: glucose 4x [place] ULTRA2 00 dialy Medical METER) Kit Branch Lancets Yes [id number] Check Unive rs (ONETOUCH 3-18 blood ity of ULTRASOFT 00:00: glucose 4x [place] LANCETS) 00 daily Medical [facility] Branch blood sugar Yes [id number] Check U nivers diagnostic 3-18 blood ity of (ONETOUCH 00:00: glucose 4x [place] VERIO TEST 00 daily Medical STRIPS) Branch strip Blood-Gluco Yes [id number] Check U nivers se Meter 3-18 blood ity of (ONETOUCH 00:00: glucose 4x [place] ULTRA2 00 dialy Medical METER) Kit Branch Lancets Yes [id number] Check Unive rs (ONETOUCH 3-18 blood ity of ULTRASOFT 00:00: glucose 4x [place] LANCETS) 00 daily Medical [facility] [facility] blood sugar Yes [id number] Check U nivers diagnostic 3-18 blood ity of (ONETOUCH 00:00: glucose 4x [place] VERIO TEST 00 daily Medical STRIPS) Branch strip Blood-Gluco Yes [id number] Check U nivers se Meter 3-18 blood ity of (ONETOUCH 00:00: glucose 4x [place] ULTRA2 00 dialy Medical METER) Kit Branch Lancets Yes [id number] Check Unive rs (ONETOUCH 3-18 blood ity of ULTRASOFT 00:00: glucose 4x [place] LANCETS) 00 daily Medical [facility] blood sugar Yes [id number] Check [facility] nivers diagnostic 3-18 blood ity of (ONETOUCH 00:00: glucose 4x [place] VERIO TEST 00 daily Medical STRIPS) Branch strip Blood-Gluco Yes [id number] Check U nivers se Meter 3-18 blood ity of (ONETOUCH 00:00: glucose 4x [place] ULTRA2 00 dialy Medical METER) Kit Branch Lancets Yes [id number] Check Unive rs (ONETOUCH 3-18 blood ity of ULTRASOFT 00:00: glucose 4x [place] LANCETS) 00 daily Medical Misc Branch blood sugar Yes [id number] Check [facility] nivers diagnostic 3-18 blood ity of (ONETOUCH 00:00: glucose 4x [place] VERIO TEST 00 daily Medical STRIPS) Branch strip blood sugar Yes Diet Check Unive rs diagnostic 3-18 controlled blood it y of (ONETOUCH 00:00: gestational glucose 4x [place] VERIO TEST 00 diabetes daily Medi nba STRIPS) mellitus Branch strip (GDM) in second trimester Blood-Gluco 2020- No [id number] Check [facility] se Meter 3-18 05-30 blood ity of (ONETOUCH 00:00: 00:00 glucose 4x [place] ULTRA2 00 :00 dialy Medical METER) Kit Branch Lancets 2020- No [id number] Check Univ ers (ONETOUCH 3-18 05-30 blood ity of ULTRASOFT 00:00: 00:00 glucose 4x [place] LANCETS) 00 :00 daily Medical Misc Branch blood sugar 2020- No [id number] Check [facility] diagnostic 3-18 05-30 blood ity of (ONETOUCH 00:00: 00:00 glucose 4x [place] VERIO TEST 00 :00 daily Medical STRIPS) Branch strip Blood-Gluco 2020- No [id number] Check Univers se Meter 3-18 05-30 blood ity of (ONETOUCH 00:00: 00:00 glucose 4x [place] ULTRA2 00 :00 dialy Medical METER) Kit Branch Lancets 2020- No [id number] Check Univ ers (ONETOUCH 3-18 05-30 blood ity of ULTRASOFT 00:00: 00:00 glucose 4x [place] LANCETS) 00 :00 daily Medical Misc Branch blood sugar 2020- No [id number] Check [facility] diagnostic 318 05-30 blood ity of (ONETOUCH 00:00: 00:00 glucose 4x [place] VERIO TEST 00 :00 daily Medical STRIPS) Branch strip ascorbic Yes [id number] 500mg Take 1 U nivers acid, 3-10 tablet by ity of vitamin C, 00:00: mouth 3 [place] 500 mg 00 (three) Medical tablet times Branch daily. ferrous Yes [id number] 325mg Take 1 Un indra sulfate 325 3-10 tablet by ity of mg (65 mg 00:00: mouth 2 [place] iron) 00 (two) Medical tablet times Branch daily. ascorbic Yes [id number] 500mg Take 1 [facility] nivers acid, 3-10 tablet by ity of vitamin C, 00:00: mouth 3 [place] 500 mg 00 (three) Medical tablet times Branch daily. ferrous Yes [id number] 325mg Take 1 Un indra sulfate 325 3-10 tablet by ity of mg (65 mg 00:00: mouth 2 [place] iron) 00 (two) Medical tablet times Branch daily. ascorbic Yes [id number] 500mg Take 1 [facility] nivers acid, 3-10 tablet by ity of vitamin C, 00:00: mouth 3 [place] 500 mg 00 (three) Medical tablet times Branch daily. ferrous Yes [id number] 325mg Take 1 Un indra sulfate 325 3-10 tablet by ity of mg (65 mg 00:00: mouth 2 [place] iron) 00 (two) Medical tablet times Branch daily. ascorbic Yes [id number] 500mg Take 1 [facility] nivers acid, 3-10 tablet by ity of vitamin C, 00:00: mouth 3 [place] 500 mg 00 (three) Medical tablet times Branch daily. ferrous Yes [id number] 325mg Take 1 Un indra sulfate 325 3-10 tablet by ity of mg (65 mg 00:00: mouth 2 [place] iron) 00 (two) Medical tablet times Branch daily. ascorbic Yes [id number] 500mg Take 1 [facility] nivers acid, 3-10 tablet by ity of vitamin C, 00:00: mouth 3 [place] 500 mg 00 (three) Medical tablet times Branch daily. ferrous Yes [id number] 325mg Take 1 Un indra sulfate 325 3-10 tablet by ity of mg (65 mg 00:00: mouth 2 [place] iron) 00 (two) Medical tablet times Branch daily. ascorbic Yes [id number] 500mg Take 1 U nivers acid, 3-10 tablet by ity of vitamin C, 00:00: mouth 3 [place] 500 mg 00 (three) Medical tablet times Branch daily. ferrous Yes [id number] 325mg Take 1 Un indra sulfate 325 3-10 tablet by ity of mg (65 mg 00:00: mouth 2 [place] iron) 00 (two) Medical tablet times Branch daily. ascorbic Yes [id number] 500mg Take 1 U nivers acid, 3-10 tablet by ity of vitamin C, 00:00: mouth 3 [place] 500 mg 00 (three) Medical tablet times Branch daily. ferrous Yes [id number] 325mg Take 1 Un indra sulfate 325 3-10 tablet by ity of mg (65 mg 00:00: mouth 2 [place] iron) 00 (two) Medical tablet times Branch daily. ascorbic Yes [id number] 500mg Take 1 [facility] nivers acid, 3-10 tablet by ity of vitamin C, 00:00: mouth 3 [place] 500 mg 00 (three) Medical tablet times Branch daily. ferrous Yes [id number] 325mg Take 1 Un indra sulfate 325 3-10 tablet by ity of mg (65 mg 00:00: mouth 2 [place] iron) 00 (two) Medical tablet times Branch daily. ascorbic Yes [id number] 500mg Take 1 U nivers acid, 3-10 tablet by ity of vitamin C, 00:00: mouth 3 [place] 500 mg 00 (three) Medical tablet times Branch daily. ferrous Yes [id number] 325mg Take 1 Un indra sulfate 325 3-10 tablet by ity of mg (65 mg 00:00: mouth 2 [place] iron) 00 (two) Medical tablet times Branch daily. ascorbic Yes [id number] 500mg Take 1 U nivers acid, 3-10 tablet by ity of vitamin C, 00:00: mouth 3 [place] 500 mg 00 (three) Medical tablet times Branch daily. ferrous Yes [id number] 325mg Take 1 Un indra sulfate 325 3-10 tablet by ity of mg (65 mg 00:00: mouth 2 [place] iron) 00 (two) Medical tablet times Branch daily. ascorbic Yes [id number] 500mg Take 1 U nivers acid, 3-10 tablet by ity of vitamin C, 00:00: mouth 3 [place] 500 mg 00 (three) Medical tablet times Branch daily. ferrous Yes [id number] 325mg Take 1 Un indra sulfate 325 3-10 tablet by ity of mg (65 mg 00:00: mouth 2 [place] iron) 00 (two) Medical tablet times Branch daily. ascorbic Yes [id number] 500mg Take 1 U nivers acid, 3-10 tablet by ity of vitamin C, 00:00: mouth 3 [place] 500 mg 00 (three) Medical tablet times Branch daily. ferrous Yes [id number] 325mg Take 1 Un indra sulfate 325 3-10 tablet by ity of mg (65 mg 00:00: mouth 2 [place] iron) 00 (two) Medical tablet times Branch daily. ascorbic Yes [id number] 500mg Take 1 U nivers acid, 3-10 tablet by ity of vitamin C, 00:00: mouth 3 [place] 500 mg 00 (three) Medical tablet times Branch daily. ferrous Yes [id number] 325mg Take 1 Un indra sulfate 325 3-10 tablet by ity of mg (65 mg 00:00: mouth 2 [place] iron) 00 (two) Medical tablet times Branch daily. ascorbic Yes [id number] 500mg Take 1 U nivers acid, 3-10 tablet by ity of vitamin C, 00:00: mouth 3 [place] 500 mg 00 (three) Medical tablet times Branch daily. ferrous Yes [id number] 325mg Take 1 Un indra sulfate 325 3-10 tablet by ity of mg (65 mg 00:00: mouth 2 [place] iron) 00 (two) Medical tablet times Branch daily. ascorbic Yes [id number] 500mg Take 1 U nivers acid, 3-10 tablet by ity of vitamin C, 00:00: mouth 3 [place] 500 mg 00 (three) Medical tablet times Branch daily. ferrous Yes [id number] 325mg Take 1 Un indra sulfate 325 3-10 tablet by ity of mg (65 mg 00:00: mouth 2 [place] iron) 00 (two) Medical tablet times Branch daily. ascorbic Yes [id number] 500mg Take 1 U nivers acid, 3-10 tablet by ity of vitamin C, 00:00: mouth 3 [place] 500 mg 00 (three) Medical tablet times Branch daily. ferrous Yes [id number] 325mg Take 1 Un indra sulfate 325 3-10 tablet by ity of mg (65 mg 00:00: mouth 2 [place] iron) 00 (two) Medical tablet times Branch daily. ascorbic Yes [id number] 500mg Take 1 U nivers acid, 3-10 tablet by ity of vitamin C, 00:00: mouth 3 [place] 500 mg 00 (three) Medical tablet times Branch daily. ferrous Yes [id number] 325mg Take 1 Un indra sulfate 325 3-10 tablet by ity of mg (65 mg 00:00: mouth 2 [place] iron) 00 (two) Medical tablet times Branch daily. ascorbic Yes [id number] 500mg Take 1 U nivers acid, 3-10 tablet by ity of vitamin C, 00:00: mouth 3 [place] 500 mg 00 (three) Medical tablet times Branch daily. ferrous Yes [id number] 325mg Take 1 Un indra sulfate 325 3-10 tablet by ity of mg (65 mg 00:00: mouth 2 [place] iron) 00 (two) Medical tablet times Branch daily. ascorbic Yes [id number] 500mg Take 1 U nivers acid, 3-10 tablet by ity of vitamin C, 00:00: mouth 3 [place] 500 mg 00 (three) Medical tablet times Branch daily. ferrous Yes [id number] 325mg Take 1 Un indra sulfate 325 3-10 tablet by ity of mg (65 mg 00:00: mouth 2 [place] iron) 00 (two) Medical tablet times Branch daily. ascorbic Yes [id number] 500mg Take 1 U nivers acid, 3-10 tablet by ity of vitamin C, 00:00: mouth 3 [place] 500 mg 00 (three) Medical tablet times Branch daily. ferrous Yes [id number] 325mg Take 1 Un indra sulfate 325 3-10 tablet by ity of mg (65 mg 00:00: mouth 2 [place] iron) 00 (two) Medical tablet times Branch daily. ascorbic Yes [id number] 500mg Take 1 U nivers acid, 3-10 tablet by ity of vitamin C, 00:00: mouth 3 [place] 500 mg 00 (three) Medical tablet times Branch daily. ferrous Yes [id number] 325mg Take 1 Un indra sulfate 325 3-10 tablet by ity of mg (65 mg 00:00: mouth 2 [place] iron) 00 (two) Medical tablet times Branch daily. ascorbic Yes [id number] 500mg Take 1 U nivers acid, 3-10 tablet by ity of vitamin C, 00:00: mouth 3 [place] 500 mg 00 (three) Medical tablet times Branch daily. ferrous Yes [id number] 325mg Take 1 Un indra sulfate 325 3-10 tablet by ity of mg (65 mg 00:00: mouth 2 [place] iron) 00 (two) Medical tablet times Branch daily. ascorbic Yes [id number] 500mg Take 1 U nivers acid, 3-10 tablet by ity of vitamin C, 00:00: mouth 3 [place] 500 mg 00 (three) Medical tablet times Branch daily. ferrous Yes [id number] 325mg Take 1 Un indra sulfate 325 3-10 tablet by ity of mg (65 mg 00:00: mouth 2 [place] iron) 00 (two) Medical tablet times Branch daily. ascorbic Yes [id number] 500mg Take 1 U nivers acid, 3-10 tablet by ity of vitamin C, 00:00: mouth 3 [place] 500 mg 00 (three) Medical tablet times Branch daily. ferrous Yes [id number] 325mg Take 1 Un indra sulfate 325 3-10 tablet by ity of mg (65 mg 00:00: mouth 2 [place] iron) 00 (two) Medical tablet times Branch daily. ascorbic Yes [id number] 500mg Take 1 U nivers acid, 3-10 tablet by ity of vitamin C, 00:00: mouth 3 [place] 500 mg 00 (three) Medical tablet times Branch daily. ferrous Yes [id number] 325mg Take 1 Un indra sulfate 325 3-10 tablet by ity of mg (65 mg 00:00: mouth 2 [place] iron) 00 (two) Medical tablet times Branch daily. ascorbic Yes [id number] 500mg Take 1 U nivers acid, 3-10 tablet by ity of vitamin C, 00:00: mouth 3 [place] 500 mg 00 (three) Medical tablet times Branch daily. ferrous Yes [id number] 325mg Take 1 Un indra sulfate 325 3-10 tablet by ity of mg (65 mg 00:00: mouth 2 [place] iron) 00 (two) Medical tablet times Branch daily. ascorbic Yes [id number] 500mg Take 1 U nivers acid, 3-10 tablet by ity of vitamin C, 00:00: mouth 3 [place] 500 mg 00 (three) Medical tablet times Branch daily. ferrous Yes [id number] 325mg Take 1 Un indra sulfate 325 3-10 tablet by ity of mg (65 mg 00:00: mouth 2 [place] iron) 00 (two) Medical tablet times Branch daily. ascorbic Yes [id number] 500mg Take 1 U nivers acid, 3-10 tablet by ity of vitamin C, 00:00: mouth 3 [place] 500 mg 00 (three) Medical tablet times Branch daily. ferrous Yes [id number] 325mg Take 1 Un indra sulfate 325 3-10 tablet by ity of mg (65 mg 00:00: mouth 2 [place] iron) 00 (two) Medical tablet times Branch daily. ascorbic Yes [id number] 500mg Take 1 U nivers acid, 3-10 tablet by ity of vitamin C, 00:00: mouth 3 [place] 500 mg 00 (three) Medical tablet times Branch daily. ferrous Yes [id number] 325mg Take 1 Un indra sulfate 325 3-10 tablet by ity of mg (65 mg 00:00: mouth 2 [place] iron) 00 (two) Medical tablet times Branch daily. ascorbic Yes [id number] 500mg Take 1 U nivers acid, 3-10 tablet by ity of vitamin C, 00:00: mouth 3 [place] 500 mg 00 (three) Medical tablet times Branch daily. ferrous Yes [id number] 325mg Take 1 Un indra sulfate 325 3-10 tablet by ity of mg (65 mg 00:00: mouth 2 [place] iron) 00 (two) Medical tablet times Branch daily. ascorbic Yes [id number] 500mg Take 1 U nivers acid, 3-10 tablet by ity of vitamin C, 00:00: mouth 3 [place] 500 mg 00 (three) Medical tablet times Branch daily. ferrous Yes [id number] 325mg Take 1 Un indra sulfate 325 [...] tablet times Branch daily. ascorbic 2020- No [id number] 500mg Take 1 [facility] acid, 3-10 05-30 tablet by ity of vitamin C, 00:00: 00:00 mouth 3 [place] 500 mg 00 :00 (three) Medical tablet times Branch daily. ferrous 2020- No [id number] 325mg Take 1 U nivers sulfate 325 3-10 05-30 tablet by it y of mg (65 mg 00:00: 00:00 mouth 2 [place] iron) 00 :00 (two) Medical tablet times Branch daily. ascorbic 2020- No [id number] 500mg Take 1 [facility] acid, 3-10 05-30 tablet by ity of vitamin C, 00:00: 00:00 mouth 3 [place] 500 mg 00 :00 (three) Medical tablet times Branch daily. ferrous 2020- No [id number] 325mg Take 1 U nivers sulfate 325 3-10 05-30 tablet by it y of mg (65 mg 00:00: 00:00 mouth 2 [place] iron) 00 :00 (two) Medical tablet times Branch daily. ferrous Yes [id number] 325mg Take 1 Un indra sulfate 325 3-05 tablet by ity of mg (65 mg 00:00: mouth 2 [place] iron) 00 (two) Medical tablet times Branch daily. ascorbic Yes [id number] 500mg Take 1 U nivers acid, 3-05 tablet by ity of vitamin C, 00:00: mouth 3 [place] 500 mg 00 (three) Medical tablet times Branch daily. ferrous Yes [id number] 325mg Take 1 Un indra sulfate 325 3-05 tablet by ity of mg (65 mg 00:00: mouth 2 [place] iron) 00 (two) Medical tablet times Branch daily. ascorbic Yes [id number] 500mg Take 1 U nivers acid, 3-05 tablet by ity of vitamin C, 00:00: mouth 3 [place] 500 mg 00 (three) Medical tablet times Branch daily. ferrous Yes [id number] 325mg Take 1 Un indra sulfate 325 3-05 tablet by ity of mg (65 mg 00:00: mouth 2 [place] iron) 00 (two) Medical tablet times Branch daily. ascorbic Yes [id number] 500mg Take 1 U nivers acid, 3-05 tablet by ity of vitamin C, 00:00: mouth 3 [place] 500 mg 00 (three) Medical tablet times Branch daily. ferrous Yes [id number] 325mg Take 1 Un indra sulfate 325 3-05 tablet by ity of mg (65 mg 00:00: mouth 2 [place] iron) 00 (two) Medical tablet times Branch daily. ascorbic Yes [id number] 500mg Take 1 U nivers acid, 3-05 tablet by ity of vitamin C, 00:00: mouth 3 [place] 500 mg 00 (three) Medical tablet times Branch daily. ferrous Yes [id number] 325mg Take 1 Un indra sulfate 325 3-05 tablet by ity of mg (65 mg 00:00: mouth 2 [place] iron) 00 (two) Medical tablet times Branch daily. ascorbic Yes [id number] 500mg Take 1 U nivers acid, 3-05 tablet by ity of vitamin C, 00:00: mouth 3 [place] 500 mg 00 (three) Medical tablet times Branch daily. ferrous Yes [id number] 325mg Take 1 Un indra sulfate 325 3-05 tablet by ity of mg (65 mg 00:00: mouth 2 [place] iron) 00 (two) Medical tablet times Branch daily. ascorbic Yes [id number] 500mg Take 1 U nivers acid, 3-05 tablet by ity of vitamin C, 00:00: mouth 3 [place] 500 mg 00 (three) Medical tablet times Branch daily. ferrous Yes [id number] 325mg Take 1 Un indra sulfate 325 3-05 tablet by ity of mg (65 mg 00:00: mouth 2 [place] iron) 00 (two) Medical tablet times Branch daily. ascorbic Yes [id number] 500mg Take 1 U nivers acid, 3-05 tablet by ity of vitamin C, 00:00: mouth 3 [place] 500 mg 00 (three) Medical tablet times Branch daily. ferrous Yes [id number] 325mg Take 1 Un indra sulfate 325 3-05 tablet by ity of mg (65 mg 00:00: mouth 2 [place] iron) 00 (two) Medical tablet times Branch daily. ascorbic Yes [id number] 500mg Take 1 U nivers acid, 3-05 tablet by ity of vitamin C, 00:00: mouth 3 [place] 500 mg 00 (three) Medical tablet times Branch daily. ferrous Yes [id number] 325mg Take 1 Un indra sulfate 325 3-05 tablet by ity of mg (65 mg 00:00: mouth 2 [place] iron) 00 (two) Medical tablet times Branch daily. ascorbic Yes [id number] 500mg Take 1 U nivers acid, 3-05 tablet by ity of vitamin C, 00:00: mouth 3 [place] 500 mg 00 (three) Medical tablet times Branch daily. ferrous Yes [id number] 325mg Take 1 Un indra sulfate 325 3-05 tablet by ity of mg (65 mg 00:00: mouth 2 [place] iron) 00 (two) Medical tablet times Branch daily. ascorbic Yes [id number] 500mg Take 1 U nivers acid, 3-05 tablet by ity of vitamin C, 00:00: mouth 3 [place] 500 mg 00 (three) Medical tablet times Branch daily. ferrous Yes [id number] 325mg Take 1 Un indra sulfate 325 3-05 tablet by ity of mg (65 mg 00:00: mouth 2 [place] iron) 00 (two) Medical tablet times Branch daily. ascorbic Yes [id number] 500mg Take 1 U nivers acid, 3-05 tablet by ity of vitamin C, 00:00: mouth 3 [place] 500 mg 00 (three) Medical tablet times Branch daily. ferrous Yes [id number] 325mg Take 1 Un indra sulfate 325 3-05 tablet by ity of mg (65 mg 00:00: mouth 2 [place] iron) 00 (two) Medical tablet times Branch daily. ascorbic Yes [id number] 500mg Take 1 U nivers acid, 3-05 tablet by ity of vitamin C, 00:00: mouth 3 [place] 500 mg 00 (three) Medical tablet times Branch daily. ferrous Yes [id number] 325mg Take 1 Un indra sulfate 325 3-05 tablet by ity of mg (65 mg 00:00: mouth 2 [place] iron) 00 (two) Medical tablet times Branch daily. ascorbic Yes [id number] 500mg Take 1 U nivers acid, 3-05 tablet by ity of vitamin C, 00:00: mouth 3 [place] 500 mg 00 (three) Medical tablet times Branch daily. ferrous Yes [id number] 325mg Take 1 Un indra sulfate 325 3-05 tablet by ity of mg (65 mg 00:00: mouth 2 [place] iron) 00 (two) Medical tablet times Branch daily. ascorbic Yes [id number] 500mg Take 1 U nivers acid, 3-05 tablet by ity of vitamin C, 00:00: mouth 3 [place] 500 mg 00 (three) Medical tablet times Branch daily. ferrous Yes [id number] 325mg Take 1 Un indra sulfate 325 3-05 tablet by ity of mg (65 mg 00:00: mouth 2 [place] iron) 00 (two) Medical tablet times Branch daily. ascorbic Yes [id number] 500mg Take 1 U nivers acid, 3-05 tablet by ity of vitamin C, 00:00: mouth 3 [place] 500 mg 00 (three) Medical tablet times Branch daily. ferrous Yes [id number] 325mg Take 1 Un indra sulfate 325 3-05 tablet by ity of mg (65 mg 00:00: mouth 2 [place] iron) 00 (two) Medical tablet times Branch daily. ascorbic Yes [id number] 500mg Take 1 U nivers acid, 3-05 tablet by ity of vitamin C, 00:00: mouth 3 [place] 500 mg 00 (three) Medical tablet times Branch daily. ferrous Yes [id number] 325mg Take 1 Un indra sulfate 325 3-05 tablet by ity of mg (65 mg 00:00: mouth 2 [place] iron) 00 (two) Medical tablet times Branch daily. ascorbic Yes [id number] 500mg Take 1 U nivers acid, 3-05 tablet by ity of vitamin C, 00:00: mouth 3 [place] 500 mg 00 (three) Medical tablet times Branch daily. ferrous Yes [id number] 325mg Take 1 Un indra sulfate 325 3-05 tablet by ity of mg (65 mg 00:00: mouth 2 [place] iron) 00 (two) Medical tablet times Branch daily. ascorbic Yes [id number] 500mg Take 1 U nivers acid, 3-05 tablet by ity of vitamin C, 00:00: mouth 3 [place] 500 mg 00 (three) Medical tablet times Branch daily. ferrous Yes [id number] 325mg Take 1 Un indra sulfate 325 3-05 tablet by ity of mg (65 mg 00:00: mouth 2 [place] iron) 00 (two) Medical tablet times Branch daily. ascorbic Yes [id number] 500mg Take 1 U nivers acid, 3-05 tablet by ity of vitamin C, 00:00: mouth 3 [place] 500 mg 00 (three) Medical tablet times Branch daily. ferrous Yes [id number] 325mg Take 1 Un indra sulfate 325 3-05 tablet by ity of mg (65 mg 00:00: mouth 2 [place] iron) 00 (two) Medical tablet times Branch daily. ascorbic Yes [id number] 500mg Take 1 U nivers acid, 3-05 tablet by ity of vitamin C, 00:00: mouth 3 [place] 500 mg 00 (three) Medical tablet times Branch daily. ferrous Yes [id number] 325mg Take 1 Un indra sulfate 325 3-05 tablet by ity of mg (65 mg 00:00: mouth 2 [place] iron) 00 (two) Medical tablet times Branch daily. ascorbic Yes [id number] 500mg Take 1 U nivers acid, 3-05 tablet by ity of vitamin C, 00:00: mouth 3 [place] 500 mg 00 (three) Medical tablet times Branch daily. ferrous Yes [id number] 325mg Take 1 Un indra sulfate 325 3-05 tablet by ity of mg (65 mg 00:00: mouth 2 [place] iron) 00 (two) Medical tablet times Branch daily. ascorbic Yes [id number] 500mg Take 1 U nivers acid, 3-05 tablet by ity of vitamin C, 00:00: mouth 3 [place] 500 mg 00 (three) Medical tablet times Branch daily. ferrous Yes [id number] 325mg Take 1 Un indra sulfate 325 3-05 tablet by ity of mg (65 mg 00:00: mouth 2 [place] iron) 00 (two) Medical tablet times Branch daily. ascorbic Yes [id number] 500mg Take 1 U nivers acid, 3-05 tablet by ity of vitamin C, 00:00: mouth 3 [place] 500 mg 00 (three) Medical tablet times Branch daily. ferrous Yes [id number] 325mg Take 1 Un indra sulfate 325 3-05 tablet by ity of mg (65 mg 00:00: mouth 2 [place] iron) 00 (two) Medical tablet times Branch daily. ascorbic Yes [id number] 500mg Take 1 U nivers acid, 3-05 tablet by ity of vitamin C, 00:00: mouth 3 [place] 500 mg 00 (three) Medical tablet times Branch daily. ferrous Yes [id number] 325mg Take 1 Un indra sulfate 325 3-05 tablet by ity of mg (65 mg 00:00: mouth 2 [place] iron) 00 (two) Medical tablet times Branch daily. ascorbic Yes [id number] 500mg Take 1 U nivers acid, 3-05 tablet by ity of vitamin C, 00:00: mouth 3 [place] 500 mg 00 (three) Medical tablet times Branch daily. ferrous Yes [id number] 325mg Take 1 Un indra sulfate 325 3-05 tablet by ity of mg (65 mg 00:00: mouth 2 [place] iron) 00 (two) Medical tablet times Branch daily. ascorbic Yes [id number] 500mg Take 1 U nivers acid, 3-05 tablet by ity of vitamin C, 00:00: mouth 3 [place] 500 mg 00 (three) Medical tablet times Branch daily. ferrous Yes [id number] 325mg Take 1 Un indra sulfate 325 3-05 tablet by ity of mg (65 mg 00:00: mouth 2 [place] iron) 00 (two) Medical tablet times Branch daily. ascorbic Yes [id number] 500mg Take 1 U nivers acid, 3-05 tablet by ity of vitamin C, 00:00: mouth 3 [place] 500 mg 00 (three) Medical tablet times Branch daily. ferrous Yes [id number] 325mg Take 1 Un indra sulfate 325 3-05 tablet by ity of mg (65 mg 00:00: mouth 2 [place] iron) 00 (two) Medical tablet times Branch daily. ascorbic Yes [id number] 500mg Take 1 U nivers acid, 3-05 tablet by ity of vitamin C, 00:00: mouth 3 [place] 500 mg 00 (three) Medical tablet times Branch daily. ferrous Yes [id number] 325mg Take 1 Un indra sulfate 325 3-05 tablet by ity of mg (65 mg 00:00: mouth 2 [place] iron) 00 (two) Medical tablet times Branch daily. ascorbic Yes [id number] 500mg Take 1 U nivers acid, 3-05 tablet by ity of vitamin C, 00:00: mouth 3 [place] 500 mg 00 (three) Medical tablet times Branch daily. ferrous Yes [id number] 325mg Take 1 Un indra sulfate 325 3-05 tablet by ity of mg (65 mg 00:00: mouth 2 [place] iron) 00 (two) Medical tablet times Branch daily. ascorbic Yes [id number] 500mg Take 1 U nivers acid, 3-05 tablet by ity of vitamin C, 00:00: mouth 3 [place] 500 mg 00 (three) Medical tablet times Branch daily. ferrous Yes [id number] 325mg Take 1 Un indra sulfate 325 3-05 tablet by ity of mg (65 mg 00:00: mouth 2 [place] iron) 00 (two) Medical tablet times Branch daily. ascorbic Yes [id number] 500mg Take 1 U nivers acid, 3-05 tablet by ity of vitamin C, 00:00: mouth 3 [place] 500 mg 00 (three) Medical tablet times Branch daily. ferrous Yes [id number] 325mg Take 1 Un indra sulfate 325 3-05 tablet by ity of mg (65 mg 00:00: mouth 2 [place] iron) 00 (two) Medical tablet times Branch daily. ascorbic Yes [id number] 500mg Take 1 U nivers acid, 3-05 tablet by ity of vitamin C, 00:00: mouth 3 [place] 500 mg 00 (three) Medical tablet times Branch daily. ferrous Yes [id number] 325mg Take 1 Un indra sulfate 325 3-05 tablet by ity of mg (65 mg 00:00: mouth 2 [place] iron) 00 (two) Medical tablet times Branch daily. ascorbic Yes [id number] 500mg Take 1 U nivers acid, 3-05 tablet by ity of vitamin C, 00:00: mouth 3 [place] 500 mg 00 (three) Medical tablet times Branch daily. ferrous Yes [id number] 325mg Take 1 Un indra sulfate 325 3-05 tablet by ity of mg (65 mg 00:00: mouth 2 [place] iron) 00 (two) Medical tablet times Branch daily. ascorbic Yes [id number] 500mg Take 1 [facility] nivers acid, 3-05 tablet by ity of vitamin C, 00:00: mouth 3 [place] 500 mg 00 (three) Medical tablet times Branch daily. ferrous Yes [id number] 325mg Take 1 Un indra sulfate 325 3-05 tablet by ity of mg (65 mg 00:00: mouth 2 [place] iron) 00 (two) Medical tablet times Branch daily. ascorbic Yes [id number] 500mg Take 1 U nivers acid, 3-05 tablet by ity of vitamin C, 00:00: mouth 3 [place] 500 mg 00 (three) Medical tablet times Branch daily. ferrous Yes [id number] 325mg Take 1 Un indra sulfate 325 3-05 tablet by ity of mg (65 mg 00:00: mouth 2 [place] iron) 00 (two) Medical tablet times Branch daily. ascorbic Yes [id number] 500mg Take 1 U nivers acid, 3-05 tablet by [facility] vitamin C, 00:00: mouth 3 [place] 500 mg 00 (three) Medical tablet times Branch daily. ferrous Yes [id number] 325mg Take 1 Un [facility] sulfate 325 3-05 tablet by ity of mg (65 mg 00:00: mouth 2 [place] iron) 00 (two) Medical tablet times Branch daily. ascorbic Yes [id number] 500mg Take 1 U nivers acid, 3-05 tablet by [facility] of vitamin C, 00:00: mouth 3 [place] 500 mg 00 (three) Medical tablet times Branch daily. ferrous Yes [id number] 325mg Take 1 Un [place] sulfate 325 3-05 tablet by ity of mg (65 mg 00:00: mouth 2 [place] iron) 00 (two) Medical tablet times Branch daily. ascorbic Yes [id number] 500mg Take 1 U nivers acid, 3-05 tablet by [facility] of vitamin C, 00:00: mouth 3 [place] 500 mg 00 (three) Medical tablet times Branch daily. ferrous Yes [id number] 325mg Take 1 Un indra sulfate 325 3-05 tablet by ity of mg (65 mg 00:00: mouth 2 [place] iron) 00 (two) Medical tablet times Branch daily. ascorbic Yes [id number] 500mg Take 1 U nivers acid, 3-05 tablet by [facility] of vitamin C, 00:00: mouth 3 [place] 500 mg 00 (three) Medical tablet times Branch daily. ferrous Yes [id number] 325mg Take 1 Un indra sulfate 325 3-05 tablet by ity of mg (65 mg 00:00: mouth 2 [place] iron) 00 (two) Medical tablet times Branch daily. ascorbic Yes [id number] 500mg Take 1 U nivers acid, 3-05 tablet by [facility] of vitamin C, 00:00: mouth 3 [place] 500 mg 00 (three) Medical tablet times Branch daily. ferrous Yes [id number] 325mg Take 1 Un indra sulfate 325 3-05 tablet by ity of mg (65 mg 00:00: mouth 2 [place] iron) 00 (two) Medical tablet times Branch daily. ascorbic Yes [id number] 500mg Take 1 U nivers acid, 3-05 tablet by [facility] of vitamin C, 00:00: mouth 3 [place] 500 mg 00 (three) Medical tablet times Branch daily. ferrous Yes [id number] 325mg Take 1 Un indra sulfate 325 3-05 tablet by ity of mg (65 mg 00:00: mouth 2 [place] iron) 00 (two) Medical tablet times Branch daily. ascorbic Yes [id number] 500mg Take 1 U nivers acid, 3-05 tablet by [facility] of vitamin C, 00:00: mouth 3 [place] 500 mg 00 (three) Medical tablet times Branch daily. ferrous Yes [id number] 325mg Take 1 Un indra sulfate 325 3-05 tablet by ity of mg (65 mg 00:00: mouth 2 [place] iron) 00 (two) Medical tablet times Branch daily. ascorbic Yes [id number] 500mg Take 1 U nivers acid, 3-05 tablet by [facility] of vitamin C, 00:00: mouth 3 [place] 500 mg 00 (three) Medical tablet times Branch daily. ferrous Yes [id number] 325mg Take 1 Un indra sulfate 325 3-05 tablet by ity of mg (65 mg 00:00: mouth 2 [place] iron) 00 (two) Medical tablet times Branch daily. ascorbic Yes [id number] 500mg Take 1 U nivers acid, 3-05 tablet by [facility] of vitamin C, 00:00: mouth 3 [place] 500 mg 00 (three) Medical tablet times Branch daily. ferrous Yes [id number] 325mg Take 1 Un indra sulfate 325 3-05 tablet by ity of mg (65 mg 00:00: mouth 2 [place] iron) 00 (two) Medical tablet times Branch daily. ascorbic Yes [id number] 500mg Take 1 U nivers acid, 3-05 tablet by [facility] of vitamin C, 00:00: mouth 3 [place] 500 mg 00 (three) Medical tablet times Branch daily. ferrous Yes [id number] 325mg Take 1 Un indra sulfate 325 3-05 tablet by ity of mg (65 mg 00:00: mouth 2 [place] iron) 00 (two) Medical tablet times Branch daily. ascorbic Yes [id number] 500mg Take 1 U nivers acid, 3-05 tablet by [facility] of vitamin C, 00:00: mouth 3 [place] 500 mg 00 (three) Medical tablet times Branch daily. ferrous Yes [id number] 325mg Take 1 Un indra sulfate 325 3-05 tablet by ity of mg (65 mg 00:00: mouth 2 [place] iron) 00 (two) Medical tablet times Branch daily. ascorbic Yes [id number] 500mg Take 1 U nivers acid, 3-05 tablet by [facility] of vitamin C, 00:00: mouth 3 [place] 500 mg 00 (three) Medical tablet times Branch daily. ferrous Yes [id number] 325mg Take 1 Un indra sulfate 325 3-05 tablet by ity of mg (65 mg 00:00: mouth 2 [place] iron) 00 (two) Medical tablet times Branch daily. ascorbic Yes [id number] 500mg Take 1 U nivers acid, 3-05 tablet by [facility] of vitamin C, 00:00: mouth 3 [place] 500 mg 00 (three) Medical tablet times Branch daily. ferrous Yes [id number] 325mg Take 1 Un indra sulfate 325 3-05 tablet by ity of mg (65 mg 00:00: mouth 2 [place] iron) 00 (two) Medical tablet times Branch daily. ascorbic Yes [id number] 500mg Take 1 U nivers acid, 3-05 [...] times Branch daily. PNV 67-iron 2019-02 Yes [id number] 1{capsu Take 1 [facility] ps-folate 2-15 le} capsule by ity of no.1-dha 00:00: mouth [place] (VITAFOL 00 daily. Medical ULTRA) 29 Branch mg iron- 1 mg-200 mg Cap PNV 67-iron 2019-02 Yes [id number] 1{capsu Take 1 [facility] ps-folate 2-15 le} capsule by ity of no.1-dha 00:00: mouth [place] (VITAFOL 00 daily. Medical ULTRA) 29 Branch mg iron- 1 mg-200 mg Cap PNV 67-iron 2020-1 Yes [id number] 1{capsu Take 1 [facility] ps-folate 2-15 le} capsule by ity of no.1-dha 00:00: mouth [place] (VITAFOL 00 daily. Medical ULTRA) 29 Branch mg iron- 1 mg-200 mg Cap PNV 67-iron 2020-1 Yes [id number] 1{capsu Take 1 [facility] ps-folate 2-15 le} capsule by ity of no.1-dha 00:00: mouth [place] (VITAFOL 00 daily. Medical ULTRA) 29 Branch mg iron- 1 mg-200 mg Cap PNV 67-iron 2020-1 Yes [id number] 1{capsu Take 1 [facility] ps-folate 2-15 le} capsule by ity of no.1-dha 00:00: mouth [place] (VITAFOL 00 daily. Medical ULTRA) 29 Branch mg iron- 1 mg-200 mg Cap PNV 67-iron 2020-1 Yes [id number] 1{capsu Take 1 [facility] ps-folate 2-15 le} capsule by ity of no.1-dha 00:00: mouth [place] (VITAFOL 00 daily. Medical ULTRA) 29 Branch mg iron- 1 mg-200 mg Cap PNV 67-iron 2020-1 Yes [id number] 1{capsu Take 1 [facility] ps-folate 2-15 le} capsule by ity of no.1-dha 00:00: mouth [place] (VITAFOL 00 daily. Medical ULTRA) 29 Branch mg iron- 1 mg-200 mg Cap PNV 67-iron 2020-1 Yes [id number] 1{capsu Take 1 [facility] ps-folate 2-15 le} capsule by ity of no.1-dha 00:00: mouth [place] (VITAFOL 00 daily. Medical ULTRA) 29 Branch mg iron- 1 mg-200 mg Cap PNV 67-iron 2020-1 Yes [id number] 1{capsu Take 1 [facility] ps-folate 2-15 le} capsule by ity of no.1-dha 00:00: mouth [place] (VITAFOL 00 daily. Medical ULTRA) 29 Branch mg iron- 1 mg-200 mg Cap PNV 67-iron 2020-1 Yes [id number] 1{capsu Take 1 [facility] ps-folate 2-15 le} capsule by ity of no.1-dha 00:00: mouth [place] (VITAFOL 00 daily. Medical ULTRA) 29 Branch mg iron- 1 mg-200 mg Cap PNV 67-iron 2020-1 Yes [id number] 1{capsu Take 1 [facility] ps-folate 2-15 le} capsule by ity of no.1-dha 00:00: mouth [place] (VITAFOL 00 daily. Medical ULTRA) 29 Branch mg iron- 1 mg-200 mg Cap PNV 67-iron 2020-1 Yes [id number] 1{capsu Take 1 [facility] ps-folate 2-15 le} capsule by ity of no.1-dha 00:00: mouth [place] (VITAFOL 00 daily. Medical ULTRA) 29 Branch mg iron- 1 mg-200 mg Cap PNV 67-iron 2020-1 Yes [id number] 1{capsu Take 1 [facility] ps-folate 2-15 le} capsule by ity of no.1-dha 00:00: mouth [place] (VITAFOL 00 daily. Medical ULTRA) 29 Branch mg iron- 1 mg-200 mg Cap PNV 67-iron 2020-1 Yes [id number] 1{capsu Take 1 [facility] ps-folate 2-15 le} capsule by ity of no.1-dha 00:00: mouth [place] (VITAFOL 00 daily. Medical ULTRA) 29 Branch mg iron- 1 mg-200 mg Cap PNV 67-iron 2020-1 Yes [id number] 1{capsu Take 1 [facility] ps-folate 2-15 le} capsule by ity of no.1-dha 00:00: mouth [place] (VITAFOL 00 daily. Medical ULTRA) 29 Branch mg iron- 1 mg-200 mg Cap PNV 67-iron 2020-1 Yes [id number] 1{capsu Take 1 [facility] ps-folate 2-15 le} capsule by ity of no.1-dha 00:00: mouth [place] (VITAFOL 00 daily. Medical ULTRA) 29 Branch mg iron- 1 mg-200 mg Cap PNV 67-iron 2020-1 Yes [id number] 1{capsu Take 1 [facility] ps-folate 2-15 le} capsule by ity of no.1-dha 00:00: mouth [place] (VITAFOL 00 daily. Medical ULTRA) 29 Branch mg iron- 1 mg-200 mg Cap PNV 67-iron 2020-1 Yes [id number] 1{capsu Take 1 [facility] ps-folate 2-15 le} capsule by ity of no.1-dha 00:00: mouth [place] (VITAFOL 00 daily. Medical ULTRA) 29 Branch mg iron- 1 mg-200 mg Cap PNV 67-iron 2020-1 Yes [id number] 1{capsu Take 1 [facility] ps-folate 2-15 le} capsule by ity of no.1-dha 00:00: mouth [place] (VITAFOL 00 daily. Medical ULTRA) 29 Branch mg iron- 1 mg-200 mg Cap PNV 67-iron 2020-1 Yes [id number] 1{capsu Take 1 [facility] ps-folate 2-15 le} capsule by ity of no.1-dha 00:00: mouth [place] (VITAFOL 00 daily. Medical ULTRA) 29 Branch mg iron- 1 mg-200 mg Cap PNV 67-iron 2020-1 Yes [id number] 1{capsu Take 1 [facility] ps-folate 2-15 le} capsule by ity of no.1-dha 00:00: mouth [place] (VITAFOL 00 daily. Medical ULTRA) 29 Branch mg iron- 1 mg-200 mg Cap PNV 67-iron 2020-1 Yes [id number] 1{capsu Take 1 [facility] ps-folate 2-15 le} capsule by ity of no.1-dha 00:00: mouth [place] (VITAFOL 00 daily. Medical ULTRA) 29 Branch mg iron- 1 mg-200 mg Cap PNV 67-iron 2020-1 Yes [id number] 1{capsu Take 1 [facility] ps-folate 2-15 le} capsule by ity of no.1-dha 00:00: mouth [place] (VITAFOL 00 daily. Medical ULTRA) 29 Branch mg iron- 1 mg-200 mg Cap PNV 67-iron 2020-1 Yes [id number] 1{capsu Take 1 [facility] ps-folate 2-15 le} capsule by ity of no.1-dha 00:00: mouth [place] (VITAFOL 00 daily. Medical ULTRA) 29 Branch mg iron- 1 mg-200 mg Cap PNV 67-iron 2020-1 Yes [id number] 1{capsu Take 1 [facility] ps-folate 2-15 le} capsule by ity of no.1-dha 00:00: mouth [place] (VITAFOL 00 daily. Medical ULTRA) 29 Branch mg iron- 1 mg-200 mg Cap PNV 67-iron 2020-1 Yes [id number] 1{capsu Take 1 [facility] ps-folate 2-15 le} capsule by ity of no.1-dha 00:00: mouth [place] (VITAFOL 00 daily. Medical ULTRA) 29 Branch mg iron- 1 mg-200 mg Cap PNV 67-iron 2020-1 Yes [id number] 1{capsu Take 1 [facility] ps-folate 2-15 le} capsule by ity of no.1-dha 00:00: mouth [place] (VITAFOL 00 daily. Medical ULTRA) 29 Branch mg iron- 1 mg-200 mg Cap PNV 67-iron 2020-1 Yes [id number] 1{capsu Take 1 [facility] ps-folate 2-15 le} capsule by ity of no.1-dha 00:00: mouth [place] (VITAFOL 00 daily. Medical ULTRA) 29 Branch mg iron- 1 mg-200 mg Cap PNV 67-iron 2020-1 Yes [id number] 1{capsu Take 1 [facility] ps-folate 2-15 le} capsule by ity of no.1-dha 00:00: mouth [place] (VITAFOL 00 daily. Medical ULTRA) 29 Branch mg iron- 1 mg-200 mg Cap PNV 67-iron 2020-1 Yes [id number] 1{capsu Take 1 [facility] ps-folate 2-15 le} capsule by ity of no.1-dha 00:00: mouth [place] (VITAFOL 00 daily. Medical ULTRA) 29 Branch mg iron- 1 mg-200 mg Cap PNV 67-iron 2020-1 Yes [id number] 1{capsu Take 1 [facility] ps-folate 2-15 le} capsule by ity of no.1-dha 00:00: mouth [place] (VITAFOL 00 daily. Medical ULTRA) 29 Branch mg iron- 1 mg-200 mg Cap PNV 67-iron 2020-1 Yes [id number] 1{capsu Take 1 [facility] ps-folate 2-15 le} capsule by ity of no.1-dha 00:00: mouth [place] (VITAFOL 00 daily. Medical ULTRA) 29 Branch mg iron- 1 mg-200 mg Cap PNV 67-iron 2020-1 Yes [id number] 1{capsu Take 1 [facility] ps-folate 2-15 le} capsule by ity of no.1-dha 00:00: mouth [place] (VITAFOL 00 daily. Medical ULTRA) 29 Branch mg iron- 1 mg-200 mg Cap PNV 67-iron 2020-1 Yes [id number] 1{capsu Take 1 [facility] ps-folate 2-15 le} capsule by ity of no.1-dha 00:00: mouth [place] (VITAFOL 00 daily. Medical ULTRA) 29 Branch mg iron- 1 mg-200 mg Cap PNV 67-iron 2020-1 Yes [id number] 1{capsu Take 1 [facility] ps-folate 2-15 le} capsule by ity of no.1-dha 00:00: mouth [place] (VITAFOL 00 daily. Medical ULTRA) 29 Branch mg iron- 1 mg-200 mg Cap PNV 67-iron 2020-1 Yes [id number] 1{capsu Take 1 [facility] ps-folate 2-15 le} capsule by ity of no.1-dha 00:00: mouth [place] (VITAFOL 00 daily. Medical ULTRA) 29 Branch mg iron- 1 mg-200 mg Cap PNV 67-iron 2020-1 Yes [id number] 1{capsu Take 1 [facility] ps-folate 2-15 le} capsule by ity of no.1-dha 00:00: mouth [place] (VITAFOL 00 daily. Medical ULTRA) 29 Branch mg iron- 1 mg-200 mg Cap PNV 67-iron 2020-1 Yes [id number] 1{capsu Take 1 [facility] ps-folate 2-15 le} capsule by ity of no.1-dha 00:00: mouth [place] (VITAFOL 00 daily. Medical ULTRA) 29 Branch mg iron- 1 mg-200 mg Cap PNV 67-iron 2020-1 Yes [id number] 1{capsu Take 1 [facility] ps-folate 2-15 le} [...] mg-200 mg Cap PNV 67-iron 2020-2020- No [id number] 1{capsu Take 1 [facility] ps-folate 2-15 05-30 le} capsule by ity of no.1-dha 00:00: 00:00 mouth [place] (VITAFOL 00 :00 daily. Medical ULTRA) 29 Branch mg iron- 1 mg-200 mg Cap PNV 67-iron 2019-02- No [id number] 1{capsu Take 1 [facility] ps-folate 2-15 05-30 le} capsule by ity of no.1-dha 00:00: 00:00 mouth [place] (VITAFOL 00 :00 daily. Medical ULTRA) 29 Branch mg iron- 1 mg-200 mg Cap measles, 2019- No .5mL 0.5 mL, Unive rs mumps + -10-13 Subcutaneo ity o f rubella vac 13:00: 17:27 , ONCE, [place] (M-M-R II) 00 :00 1 dose, Medica l 1,000-12,50 Tue Branch 0 10/13/18 at TCID50/0.5 0800, mL Routine injection 0.5 mL 2018- Yes [id number] 1{tbl} Take 1 [facility] vitamin 8-27 tablet by ity of w/FA tablet 00:00: mouth 00 daily. Medical Branch docusate Yes [id number] 240mg Take 1 U nivers calcium 240 8-27 capsule by it y of mg capsule 00:00: mouth once [place] 00 daily as Medical needed for Branch Constipati on. ferrous 2018- Yes [id number] 325mg Take 1 Un indra sulfate 325 8-27 tablet by ity of mg (65 mg 00:00: mouth 2 [place] iron) 00 (two) Medical tablet times Branch daily. ibuprofen 2018- Yes [id number] 600mg Take 1 [facility] 600 mg 8-27 tablet by ity of tablet 00:00: mouth [place] 00 every 6 Medical (six) Branch hours as needed for Pain (scale 1-3) or Pain (scale 4-6) (Pain). Take with food or milk. 2019- Yes [id number] 1{tbl} Take 1 [facility] vitamin 8-27 tablet by ity of w/FA tablet 00:00: mouth [place] 00 daily. Medical Branch docusate Yes [id number] 240mg Take 1 U nivers calcium 240 8-27 capsule by it y of mg capsule 00:00: mouth once [place] 00 daily as Medical needed for Branch Constipati on. ferrous 2019-0 Yes [id number] 325mg Take 1 Un indra sulfate 325 8-27 tablet by ity of mg (65 mg 00:00: mouth 2 [place] iron) 00 (two) Medical tablet times Branch daily. ibuprofen 2019- Yes [id number] 600mg Take 1 [facility] 600 mg 8-27 tablet by ity of tablet 00:00: mouth [place] 00 every 6 Medical (six) Branch hours as needed for Pain (scale 1-3) or Pain (scale 4-6) (Pain). Take with food or milk. 2018- Yes [id number] 1{tbl} Take 1 [facility] vitamin 8-27 tablet by ity of w/FA tablet 00:00: mouth [place] 00 daily. Medical Branch docusate Yes [id number] 240mg Take 1 U nivers calcium 240 8-27 capsule by it y of mg capsule 00:00: mouth once [place] 00 daily as Medical needed for Branch Constipati on. ferrous Yes [id number] 325mg Take 1 Un indra sulfate 325 8-27 tablet by ity of mg (65 mg 00:00: mouth 2 [place] iron) 00 (two) Medical tablet times Branch daily. ibuprofen 0 Yes [id number] 600mg Take 1 [facility] 600 mg 8-27 tablet by ity of tablet 00:00: mouth [place] 00 every 6 Medical (six) Branch hours as needed for Pain (scale 1-3) or Pain (scale 4-6) (Pain). Take with food or milk. 2018-0 Yes [id number] 1{tbl} Take 1 [facility] vitamin 8-27 tablet by ity of w/FA tablet 00:00: mouth [place] 00 daily. Medical Branch docusate 0 Yes [id number] 240mg Take 1 U nivers calcium 240 8-27 capsule by it y of mg capsule 00:00: mouth once [place] 00 daily as Medical needed for Branch Constipati on. ferrous 2018-0 Yes [id number] 325mg Take 1 Un indra sulfate 325 8-27 tablet by ity of mg (65 mg 00:00: mouth 2 [place] iron) 00 (two) Medical tablet times Branch daily. ibuprofen 2019-0 Yes [id number] 600mg Take 1 [facility] 600 mg 8-27 tablet by ity of tablet 00:00: mouth [place] 00 every 6 Medical (six) Branch hours as needed for Pain (scale 1-3) or Pain (scale 4-6) (Pain). Take with food or milk. 2018- Yes [id number] 1{tbl} Take 1 [facility] vitamin 8-27 tablet by ity of w/FA tablet 00:00: mouth [place] 00 daily. Medical Branch docusate 0 Yes [id number] 240mg Take 1 U nivers calcium 240 8-27 capsule by it y of mg capsule 00:00: mouth once [place] 00 daily as Medical needed for Branch Constipati on. ferrous 2018-0 Yes [id number] 325mg Take 1 Un indra sulfate 325 8-27 tablet by ity of mg (65 mg 00:00: mouth 2 [place] iron) 00 (two) Medical tablet times Branch daily. ibuprofen Yes [id number] 600mg Take 1 [facility] 600 mg 8-27 tablet by ity of tablet 00:00: mouth [place] 00 every 6 Medical (six) Branch hours as needed for Pain (scale 1-3) or Pain (scale 4-6) (Pain). Take with food or milk. Yes [id number] 1{tbl} Take 1 [facility] vitamin 8-27 tablet by ity of w/FA tablet 00:00: mouth [place] 00 daily. Medical Branch docusate Yes [id number] 240mg Take 1 U nivers calcium 240 8-27 capsule by it y of mg capsule 00:00: mouth once [place] 00 daily as Medical needed for Branch Constipati on. ferrous 2018-0 Yes [id number] 325mg Take 1 Un indra sulfate 325 8-27 tablet by ity of mg (65 mg 00:00: mouth 2 [place] iron) 00 (two) Medical tablet times Branch daily. ibuprofen 0 Yes [id number] 600mg Take 1 [facility] 600 mg 8-27 tablet by ity of tablet 00:00: mouth [place] 00 every 6 Medical (six) Branch hours as needed for Pain (scale 1-3) or Pain (scale 4-6) (Pain). Take with food or milk. 2018-0 Yes [id number] 1{tbl} Take 1 [facility] vitamin 8-27 tablet by ity of w/FA tablet 00:00: mouth [place] 00 daily. Medical Branch docusate Yes [id number] 240mg Take 1 U nivers calcium 240 8-27 capsule by it y of mg capsule 00:00: mouth once [place] 00 daily as Medical needed for Branch Constipati on. ferrous Yes [id number] 325mg Take 1 Un indra sulfate 325 8-27 tablet by ity of mg (65 mg 00:00: mouth 2 [place] iron) 00 (two) Medical tablet times Branch daily. ibuprofen 2018- Yes [id number] 600mg Take 1 [facility] 600 mg 8-27 tablet by ity of tablet 00:00: mouth [place] 00 every 6 Medical (six) Branch hours as needed for Pain (scale 1-3) or Pain (scale 4-6) (Pain). Take with food or milk. Yes [id number] 1{tbl} Take 1 [facility] vitamin 8-27 tablet by ity of w/FA tablet 00:00: mouth [place] 00 daily. Medical Branch docusate Yes [id number] 240mg Take 1 U nivers calcium 240 8-27 capsule by it y of mg capsule 00:00: mouth once [place] 00 daily as Medical needed for Branch Constipati on. ferrous Yes [id number] 325mg Take 1 Un indra sulfate 325 8-27 tablet by ity of mg (65 mg 00:00: mouth 2 [place] iron) 00 (two) Medical tablet times Branch daily. ibuprofen Yes [id number] 600mg Take 1 [facility] 600 mg 8-27 tablet by ity of tablet 00:00: mouth [place] 00 every 6 Medical (six) Branch hours as needed for Pain (scale 1-3) or Pain (scale 4-6) (Pain). Take with food or milk. 2019-0 Yes [id number] 1{tbl} Take 1 [facility] vitamin 8-27 tablet by ity of w/FA tablet 00:00: mouth [place] 00 daily. Medical Branch docusate Yes [id number] 240mg Take 1 U nivers calcium 240 8-27 capsule by it y of mg capsule 00:00: mouth once [place] 00 daily as Medical needed for Branch Constipati on. ferrous Yes [id number] 325mg Take 1 Un indra sulfate 325 8-27 tablet by ity of mg (65 mg 00:00: mouth 2 [place] iron) 00 (two) Medical tablet times Branch daily. ibuprofen Yes [id number] 600mg Take 1 [facility] 600 mg 8-27 tablet by ity of tablet 00:00: mouth [place] 00 every 6 Medical (six) Branch hours as needed for Pain (scale 1-3) or Pain (scale 4-6) (Pain). Take with food or milk. Yes [id number] 1{tbl} Take 1 [facility] vitamin 8-27 tablet by ity of w/FA tablet 00:00: mouth [place] 00 daily. Medical Branch docusate Yes [id number] 240mg Take 1 U nivers calcium 240 8-27 capsule by it y of mg capsule 00:00: mouth once [place] 00 daily as Medical needed for Branch Constipati on. ferrous Yes [id number] 325mg Take 1 Un indra sulfate 325 8-27 tablet by ity of mg (65 mg 00:00: mouth 2 [place] iron) 00 (two) Medical tablet times Branch daily. ibuprofen Yes [id number] 600mg Take 1 [facility] 600 mg 8-27 tablet by ity of tablet 00:00: mouth [place] 00 every 6 Medical (six) Branch hours as needed for Pain (scale 1-3) or Pain (scale 4-6) (Pain). Take with food or milk. 2020- No [id number] 1{tbl} Take 1 [facility] vitamin 8-27 10-16 tablet by ity of w/FA tablet 00:00: 00:00 mouth [place] 00 :00 daily. Medical Branch docusate 2020- No [id number] 240mg Take 1 [facility] calcium 240 8-27 10-16 capsule by i ty of mg capsule 00:00: 00:00 mouth once [place] 00 :00 daily as Medical needed for Branch Constipati on. ferrous 2020- No [id number] 325mg Take 1 U nivers sulfate 325 8-27 10-16 tablet by it y of mg (65 mg 00:00: 00:00 mouth 2 [place] iron) 00 :00 (two) Medical tablet times Branch daily. ibuprofen 2020- No [id number] 600mg Take 1 [facility] 600 mg 8 [...] 10-12 Oral, ity of (TYLENOL) 10:32: Q6HPRN, [place] tablet 650 12 Starting Medic al mg [facility] 10/12/18 at 0532, Until Discontinu ed, Routine, Pain (scale 1-3) ibuprofen 2019-0 Yes 600mg 600 mg, Univ ers (IBU) 10-12 Oral, ity of tablet 600 10:32: Q6HPRN, [place] mg 12 Starting Medical [facility] Branch 10/12/18 at 0532, Until Discontinu ed, Routine, Pain (scale 4-6) diphenhydrA 2019-0 Yes 25mg 25 mg, Univ ers MINE 10-12 Oral, ity of (BENADRYL) 10:32: Q6HPRN, [place] tablet 25 12 Starting Medica l mg [facility] 10/12/18 at 0532, Until Discontinu ed, Routine, Sleep, Itching ondansetron 2019-0 Yes 4mg 4 mg, Slow Univers (ZOFRAN 10-12 IV Push, ity of (PF)) 10:32: Q8HPRN, [place] injection 4 12 Starting Medi nba mg [facility] 10/12/18 at 0532, Until Discontinu ed, Routine, Nausea and Vomiting (N/V) simethicone 2019-0 Yes 160mg 160 mg, Un indra (GAS 10-12 Oral, ity of RELIEF) 10:32: PC+HSPRN, [place] chewable 12 Starting Medical tablet 160 Mon Branch mg 10/12/18 at 0532, Until Discontinu ed, Routine, Gas docusate Yes 240mg 240 mg, Unive rs calcium 10-12 Oral, ity of (SURFAK) 10:32: QDAILYPRN, [place] capsule 240 12 Starting Medi nba mg [facility] Branch 10/12/18 at 0532, Until Discontinu ed, Routine, Constipati on magnesium Yes 30mL 30 mL, Univer s hydroxide 10-12 Oral, ity of (MILK OF 10:32: QDAILYPRN, [place] MAGNESIA) 12 Starting Medica l 400 mg/5 mL [facility] suspension 10/12/18 at 30 mL 0532, Until [...] 00 :00 ONCE, 1 Medical dose, [facility] 10/12/18 at 0145, Routine sodium 2019- No [...] at 0532, TERI, [place] q2m acetaminoph Yes [id number] 1{capsu Take 1 [facility] en-caff-but 7-10 le} capsule by it y of albital 00:00: mouth [place] (ESGIC) per 00 every 6 Medic al capsule (six) Branch hours as needed for Pain. acetaminoph Yes [id number] 1{capsu Take 1 [facility] en-caff-but 7-10 le} capsule by it y of albital 00:00: mouth [place] (ESGIC) per 00 every 6 Medic al capsule (six) Branch hours as needed for Pain. acetaminoph Yes [id number] 1{capsu Take 1 [facility] en-caff-but 7-10 le} capsule by it y of albital 00:00: mouth [place] (ESGIC) per 00 every 6 Medic al capsule (six) Branch hours as needed for Pain. acetaminoph Yes [id number] 1{capsu Take 1 [facility] en-caff-but 7-10 le} capsule by it y of albital 00:00: mouth [place] (ESGIC) per 00 every 6 Medic al capsule (six) Branch hours as needed for Pain. acetaminoph Yes [id number] 1{capsu Take 1 [facility] en-caff-but 7-10 le} capsule by it y of albital 00:00: mouth [place] (ESGIC) per 00 every 6 Medic al capsule (six) Branch hours as needed for Pain. acetaminoph Yes [id number] 1{capsu Take 1 [facility] en-caff-but 7-10 le} capsule by it y of albital 00:00: mouth [place] (ESGIC) per 00 every 6 Medic al capsule (six) Branch hours as needed for Pain. acetaminoph Yes [id number] 1{capsu Take 1 [facility] en-caff-but 7-10 le} capsule by it y of albital 00:00: mouth [place] (ESGIC) per 00 every 6 Medic al capsule (six) Branch hours as needed for Pain. acetaminoph Yes [id number] 1{capsu Take 1 [facility] en-caff-but 7-10 le} capsule by it y of albital 00:00: mouth [place] (ESGIC) per 00 every 6 Medic al capsule (six) Branch hours as needed for Pain. acetaminoph Yes [id number] 1{capsu Take 1 [facility] en-caff-but 7-10 le} capsule by it y of albital 00:00: mouth [place] (ESGIC) per 00 every 6 Medic al capsule (six) Branch hours as needed for Pain. acetaminoph Yes [id number] 1{capsu Take 1 [facility] en-caff-but 7-10 le} capsule by it y of albital 00:00: mouth [place] (ESGIC) per 00 every 6 Medic al capsule (six) Branch hours as needed for Pain. acetaminoph Yes [id number] 1{capsu Take 1 [facility] en-caff-but 7-10 le} capsule by it y of albital 00:00: mouth [place] (ESGIC) per 00 every 6 Medic al capsule (six) Branch hours as needed for Pain. acetaminoph Yes [id number] 1{capsu Take 1 [facility] en-caff-but 7-10 le} capsule by it y of albital 00:00: mouth [place] (ESGIC) per 00 every 6 Medic al capsule (six) Branch hours as needed for Pain. acetaminoph Yes [id number] 1{capsu Take 1 [facility] en-caff-but 7-10 le} capsule by it y of albital 00:00: mouth [place] (ESGIC) per 00 every 6 Medic al capsule (six) Branch hours as needed for Pain. acetaminoph Yes [id number] 1{capsu Take 1 [facility] en-caff-but 7-10 le} capsule by it y of albital 00:00: mouth [place] (ESGIC) per 00 every 6 Medic al capsule (six) Branch hours as needed for Pain. acetaminoph Yes [id number] 1{capsu Take 1 [facility] en-caff-but 7-10 le} capsule by it y of albital 00:00: mouth [place] (ESGIC) per 00 every 6 Medic al capsule (six) Branch hours as needed for Pain. acetaminoph Yes [id number] 1{capsu Take 1 [facility] en-caff-but 7-10 le} capsule by it y of albital 00:00: mouth [place] (ESGIC) per 00 every 6 Medic al capsule (six) Branch hours as needed for Pain. acetaminoph Yes [id number] 1{capsu Take 1 [facility] en-caff-but 7-10 le} capsule by it y of albital 00:00: mouth [place] (ESGIC) per 00 every 6 Medic al capsule (six) Branch hours as needed for Pain. acetaminoph Yes [id number] 1{capsu Take 1 [facility] en-caff-but 7-10 le} capsule by it y of albital 00:00: mouth [place] (ESGIC) per 00 every 6 Medic al capsule (six) Branch hours as needed for Pain. acetaminoph Yes [id number] 1{capsu Take 1 [facility] en-caff-but 7-10 le} capsule by it y of albital 00:00: mouth [place] (ESGIC) per 00 every 6 Medic al capsule (six) Branch hours as needed for Pain. acetaminoph Yes [id number] 1{capsu Take 1 [facility] en-caff-but 7-10 le} capsule by it y of albital 00:00: mouth [place] (ESGIC) per 00 every 6 Medic al capsule (six) Branch hours as needed for Pain. acetaminoph Yes [id number] 1{capsu Take 1 [facility] en-caff-but 7-10 le} capsule by it y of albital 00:00: mouth [place] (ESGIC) per 00 every 6 Medic al capsule (six) Branch hours as needed for Pain. acetaminoph 2020- No [id number] 1{capsu Take 1 [facility] en-caff-but 7-10 10-16 le} capsule by i ty of albital 00:00: 00:00 mouth [place] (ESGIC) per 00 :00 every 6 Medic al capsule (six) Branch hours as needed for Pain. proMETHazin 2018- Yes [id number] 25mg Take 1 [facility] e 25 mg 5-10 tablet by ity of tablet 00:00: mouth [place] 00 every 6 Medical (six) Branch hours as needed for Nausea and Vomiting (N/V). acetaminoph Yes [id number] 1{capsu Take 1 [facility] en-caff-but 5-10 le} capsule by it y of albital 00:00: mouth [place] (ESGIC) per 00 every 6 Medic al capsule (six) Branch hours as needed (headache) . proMETHazin Yes [id number] 25mg Take 1 [facility] e 25 mg 5-10 tablet by ity of tablet 00:00: mouth [place] 00 every 6 Medical (six) Branch hours as needed for Nausea and Vomiting (N/V). acetaminoph Yes [id number] 1{capsu Take 1 [facility] en-caff-but 5-10 le} capsule by it y of albital 00:00: mouth [place] (ESGIC) per 00 every 6 Medic al capsule (six) Branch hours as needed (headache) . proMETHazin Yes [id number] 25mg Take 1 [facility] e 25 mg 5-10 tablet by ity of tablet 00:00: mouth [place] 00 every 6 Medical (six) Branch hours as needed for Nausea and Vomiting (N/V). acetaminoph Yes [id number] 1{capsu Take 1 [facility] en-caff-but 5-10 le} capsule by it y of albital 00:00: mouth [place] (ESGIC) per 00 every 6 Medic al capsule (six) Branch hours as needed (headache) . proMETHazin Yes [id number] 25mg Take 1 [facility] e 25 mg 5-10 tablet by ity of tablet 00:00: mouth [place] 00 every 6 Medical (six) Branch hours as needed for Nausea and Vomiting (N/V). acetaminoph Yes [id number] 1{capsu Take 1 [facility] en-caff-but 5-10 le} capsule by it y of albital 00:00: mouth [place] (ESGIC) per 00 every 6 Medic al capsule (six) Branch hours as needed (headache) . proMETHazin 2018- Yes [id number] 25mg Take 1 [facility] e 25 mg 5-10 tablet by ity of tablet 00:00: mouth [place] 00 every 6 Medical (six) Branch hours as needed for Nausea and Vomiting (N/V). acetaminoph Yes [id number] 1{capsu Take 1 [facility] en-caff-but 5-10 le} capsule by it y of albital 00:00: mouth [place] (ESGIC) per 00 every 6 Medic al capsule (six) Branch hours as needed (headache) . proMETHazin Yes [id number] 25mg Take 1 [facility] e 25 mg 5-10 tablet by ity of tablet 00:00: mouth [place] 00 every 6 Medical (six) Branch hours as needed for Nausea and Vomiting (N/V). acetaminoph Yes [id number] 1{capsu Take 1 [facility] en-caff-but 5-10 le} capsule by it y of albital 00:00: mouth [place] (ESGIC) per 00 every 6 Medic al capsule (six) Branch hours as needed (headache) . proMETHazin Yes [id number] 25mg Take 1 [facility] e 25 mg 5-10 tablet by ity of tablet 00:00: mouth [place] 00 every 6 Medical (six) Branch hours as needed for Nausea and Vomiting (N/V). acetaminoph Yes [id number] 1{capsu Take 1 [facility] en-caff-but 5-10 le} capsule by it y of albital 00:00: mouth [place] (ESGIC) per 00 every 6 Medic al capsule (six) Branch hours as needed (headache) . proMETHazin Yes [id number] 25mg Take 1 [facility] e 25 mg 5-10 tablet by ity of tablet 00:00: mouth [place] 00 every 6 Medical (six) Branch hours as needed for Nausea and Vomiting (N/V). acetaminoph Yes [id number] 1{capsu Take 1 [facility] en-caff-but 5-10 le} capsule by it y of albital 00:00: mouth [place] (ESGIC) per 00 every 6 Medic al capsule (six) Branch hours as needed (headache) . proMETHazin Yes [id number] 25mg Take 1 [facility] e 25 mg 5-10 tablet by ity of tablet 00:00: mouth [place] 00 every 6 Medical (six) Branch hours as needed for Nausea and Vomiting (N/V). acetaminoph Yes [id number] 1{capsu Take 1 [facility] en-caff-but 5-10 le} capsule by it y of albital 00:00: mouth [place] (ESGIC) per 00 every 6 Medic al capsule (six) Branch hours as needed (headache) . proMETHazin Yes [id number] 25mg Take 1 [facility] e 25 mg 5-10 tablet by ity of tablet 00:00: mouth [place] 00 every 6 Medical (six) Branch hours as needed for Nausea and Vomiting (N/V). proMETHazin 2019-0 Yes [id number] 25mg Take 1 [facility] e 25 mg 5-10 tablet by ity of tablet 00:00: mouth [place] 00 every 6 Medical (six) Branch hours as needed for Nausea and Vomiting (N/V). proMETHazin 2019-0 Yes [id number] 25mg Take 1 [facility] e 25 mg 5-10 tablet by ity of tablet 00:00: mouth [place] 00 every 6 Medical (six) Branch hours as needed for Nausea and Vomiting (N/V). proMETHazin 2018-0 Yes [id number] 25mg Take 1 [facility] e 25 mg 5-10 tablet by ity of tablet 00:00: mouth [place] 00 every 6 Medical (six) Branch hours as needed for Nausea and Vomiting (N/V). proMETHazin 2018-0 Yes [id number] 25mg Take 1 [facility] e 25 mg 5-10 tablet by ity of tablet 00:00: mouth [place] 00 every 6 Medical (six) Branch hours as needed for Nausea and Vomiting (N/V). proMETHazin 2018-0 Yes [id number] 25mg Take 1 [facility] e 25 mg 5-10 tablet by ity of tablet 00:00: mouth [place] 00 every 6 Medical (six) Branch hours as needed for Nausea and Vomiting (N/V). proMETHazin 2018-0 Yes [id number] 25mg Take 1 [facility] e 25 mg 5-10 tablet by ity of tablet 00:00: mouth [place] 00 every 6 Medical (six) Branch hours as needed for Nausea and Vomiting (N/V). proMETHazin 2019-0 Yes [id number] 25mg Take 1 [facility] e 25 mg 5-10 tablet by ity of tablet 00:00: mouth [place] 00 every 6 Medical (six) Branch hours as needed for Nausea and Vomiting (N/V). proMETHazin 2019-0 Yes [id number] 25mg Take 1 [facility] e 25 mg 5-10 tablet by ity of tablet 00:00: mouth [place] 00 every 6 Medical (six) Branch hours as needed for Nausea and Vomiting (N/V). proMETHazin 2019-0 Yes [id number] 25mg Take 1 [facility] e 25 mg 5-10 tablet by ity of tablet 00:00: mouth [place] 00 every 6 Medical (six) Branch hours as needed for Nausea and Vomiting (N/V). proMETHazin 2019 Yes [id number] 25mg Take 1 [facility] e 25 mg 5-10 tablet by ity of tablet 00:00: mouth [place] 00 every 6 Medical (six) Branch hours as needed for Nausea and Vomiting (N/V). proMETHazin Yes [id number] 25mg Take 1 [facility] e 25 mg 5-10 tablet by ity of tablet 00:00: mouth [place] 00 every 6 Medical (six) Branch hours as needed for Nausea and Vomiting (N/V). proMETHazin Yes [id number] 25mg Take 1 [facility] e 25 mg 5-10 tablet by ity of tablet 00:00: mouth [place] 00 every 6 Medical (six) Branch hours as needed for Nausea and Vomiting (N/V). proMETHazin 2020- No [id number] 25mg Take 1 [facility] e 25 mg 5-10 10-16 tablet by ity of tablet 00:00: 00:00 mouth [place] 00 :00 every 6 Medical (six) Branch hours as needed for Nausea and Vomiting (N/V). acetaminoph 2019- No [id number] 1{capsu Take 1 [facility] en-caff-but 5-10 08-14 le} capsule by i ty of albital 00:00: 00:00 mouth [place] (ESGIC) per 00 :00 every 6 Medic al capsule (six) Branch hours as needed (headache) . acetaminoph 2019- No [id number] 1{capsu Take 1 [facility] en-caff-but 5-10 08-14 le} capsule by i ty of albital 00:00: 00:00 mouth [place] (ESGIC) per 00 :00 every 6 Medic al capsule (six) Branch hours as needed (headache) . proMETHazin 2019- Yes [id number] 25mg Take 1 [facility] e 25 mg 1-17 tablet by ity of tablet 00:00: mouth [place] 00 every 6 Medical (six) Branch hours as needed for Nausea and Vomiting (N/V). proMETHazin 2019- Yes [id number] 25mg Take 1 [facility] e 25 mg 1-17 tablet by ity of tablet 00:00: mouth [place] 00 every 6 Medical (six) Branch hours as needed for Nausea and Vomiting (N/V). proMETHazin 2018-0 Yes [id number] 25mg Take 1 [facility] e 25 mg 1-17 tablet by ity of tablet 00:00: mouth [place] 00 every 6 Medical (six) Branch hours as needed for Nausea and Vomiting (N/V). proMETHazin 2018-0 Yes [id number] 25mg Take 1 [facility] e 25 mg 1-17 tablet by ity of tablet 00:00: mouth [place] 00 every 6 Medical (six) Branch hours as needed for Nausea and Vomiting (N/V). proMETHazin 2018-0 Yes [id number] 25mg Take 1 [facility] e 25 mg 1-17 tablet by ity of tablet 00:00: mouth [place] 00 every 6 Medical (six) Branch hours as needed for Nausea and Vomiting (N/V). proMETHazin 2018-0 Yes [id number] 25mg Take 1 [facility] e 25 mg 1-17 tablet by ity of tablet 00:00: mouth [place] 00 every 6 Medical (six) Branch hours as needed for Nausea and Vomiting (N/V). proMETHazin 2018- Yes [id number] 25mg Take 1 [facility] e 25 mg 1-17 tablet by ity of tablet 00:00: mouth [place] 00 every 6 Medical (six) Branch hours as needed for Nausea and Vomiting (N/V). proMETHazin 0 Yes [id number] 25mg Take 1 [facility] e 25 mg 1-17 tablet by ity of tablet 00:00: mouth [place] 00 every 6 Medical (six) Branch hours as needed for Nausea and Vomiting (N/V). proMETHazin 2018- Yes [id number] 25mg Take 1 [facility] e 25 mg 1-17 tablet by ity of tablet 00:00: mouth [place] 00 every 6 Medical (six) Branch hours as needed for Nausea and Vomiting (N/V). proMETHazin 2019- No [id number] 25mg Take 1 [facility] e 25 mg 1-17 08-14 tablet by ity of tablet 00:00: 00:00 mouth [place] 00 :00 every 6 Medical (six) Branch hours as needed for Nausea and Vomiting (N/V). proMETHazin 2019- No [id number] 25mg Take 1 [facility] e 25 mg 1-17 08-14 tablet by ity of tablet 00:00: 00:00 mouth [place] 00 :00 every 6 Medical (six) Branch hours as needed for Nausea and Vomiting (N/V). No known No [facility] medications [facility]y of [facility] No known No [facility] medications [facility] of [facility] No known No [facility] medications [facility]y of [facility] No known No [facility] medications it of [facility] Immunizations Ordered Filled Immunization Date Status Comments [facility] e Immunization Name Name SARS-COV-2 COVID-19 2020-06-20 Completed Unive rsity [facility] VACCINE 00:00:00 [facility] SARS-COV-2 COVID-19 2020-06-20 Completed [facility] of [facility]ERNA VACCINE 00:00:00 [facility] SARS-COV-2 COVID-19 2020-06-20 Completed Un[facility] rs[facility] of [facility]ERNA VACCINE 00:00:00 [facility] SARS-COV-2 COVID-19 2020-06-20 Completed Unive rsity of MODERNA VACCINE 00:00:00 [facility] SARS-COV-2 COVID-19 2020-06-20 Completed Unive rsity of MODERNA VACCINE 00:00:00 [facility] SARS-COV-2 COVID-19 2020-06-20 Completed Unive rsity of MODERNA VACCINE 00:00:00 [facility] SARS-COV-2 COVID-19 2020-06-20 Completed Unive rsity of MODERNA VACCINE 00:00:00 [facility] SARS-COV-2 COVID-19 2020-06-20 Completed Unive rsity of MODERNA VACCINE 00:00:00 [facility] SARS-COV-2 COVID-19 2020-06-20 Completed Unive rsity of MODERNA VACCINE 00:00:00 [facility] SARS-COV-2 COVID-19 2020-06-20 Completed Unive rsity of MODERNA VACCINE 00:00:00 [facility] SARS-COV-2 COVID-19 2020-06-20 Completed Unive rsity of MODERNA VACCINE 00:00:00 [facility] SARS-COV-2 COVID-19 2020-06-20 Completed Unive rsity of MODERNA VACCINE 00:00:00 [facility] Branch SARS-COV-2 COVID-19 2020-06-20 Completed Unive rsity of MODERNA VACCINE 00:00:00 [facility] SARS-COV-2 COVID-19 2020-06-20 Completed Unive rsity [...] Completed Unive rsity of MODERNA VACCINE 00:00:00 [facility] SARS-COV-2 COVID-19 2020-05-23 Completed Unive rsity of MODERNA VACCINE 00:00:00 [facility] SARS-COV-2 COVID-19 2020-05-23 Completed Unive rsity of MODERNA VACCINE 00:00:00 [facility] SARS-COV-2 COVID-19 2020-05-23 Completed Unive rsity of MODERNA VACCINE 00:00:00 [facility] SARS-COV-2 COVID-19 2020-05-23 Completed Unive rsity of MODERNA VACCINE 00:00:00 [facility] SARS-COV-2 COVID-19 2020-05-23 Completed Unive rsity of MODERNA VACCINE 00:00:00 [facility] SARS-COV-2 COVID-19 2020-05-23 Completed Unive rsity of MODERNA VACCINE 00:00:00 [facility] TDAP 2020-05-08 Completed University of 00:00:00 [facility] TDAP 2020-05-08 Completed University of 00:00:00 [facility] TDAP 2020-05-08 Completed University of 00:00:00 [facility] TDAP 2020-05-08 Completed University of 00:00:00 [facility] TDAP 2020-05-08 Completed University of 00:00:00 [facility] TDAP 2020-05-08 Completed University of 00:00:00 [facility] TDAP 2020-05-08 Completed University of 00:00:00 [facility] TDAP 2020-05-08 Completed University of 00:00:00 [facility] TDAP 2020-05-08 Completed University of 00:00:00 [facility] TDAP 2020-05-08 Completed University of 00:00:00 [facility] TDAP 2020-05-08 Completed University of 00:00:00 [facility] TDAP 2020-05-08 Completed University of 00:00:00 [facility] TDAP 2020-05-08 Completed University of 00:00:00 [facility] TDAP 2020-05-08 Completed University of 00:00:00 [facility] TDAP 2020-05-08 Completed University of 00:00:00 [facility] TDAP 2020-05-08 Completed University of 00:00:00 [facility] TDAP 2020-05-08 Completed University of 00:00:00 [facility] TDAP 2020-05-08 Completed University of 00:00:00 [facility] TDAP 2020-05-08 Completed University of 00:00:00 [facility] TDAP 2020-05-08 Completed University of 00:00:00 [facility] TDAP 2020-05-08 Completed University of 00:00:00 [facility] TDAP 2020-05-08 Completed University of 00:00:00 [facility] TDAP 2020-05-08 Completed University of 00:00:00 [facility] TDAP 2020-05-08 Completed University of 00:00:00 [facility] TDAP 2020-05-08 Completed University of 00:00:00 [facility] TDAP 2020-05-08 Completed University of 00:00:00 [facility] TDAP 2020-05-08 Completed University of 00:00:00 [facility] TDAP 2020-05-08 Completed University of 00:00:00 [facility] TDAP 2020-05-08 Completed University of 00:00:00 [facility] TDAP 2020-05-08 Completed University of 00:00:00 [facility] TDAP 2020-05-08 Completed University of 00:00:00 [facility] TDAP 2020-05-08 Completed University of 00:00:00 [facility] TDAP 2020-05-08 Completed University of 00:00:00 [facility] TDAP 2020-05-08 Completed University of 00:00:00 [facility] TDAP 2020-05-08 Completed University of 00:00:00 [facility] TDAP 2020-05-08 Completed University of 00:00:00 [facility] TDAP 2020-05-08 Completed University of 00:00:00 [facility] TDAP 2020-05-08 Completed University of 00:00:00 [facility] TDAP 2020-05-08 Completed University of 00:00:00 [facility] TDAP 2020-05-08 Completed University of 00:00:00 [facility] TDAP 2020-05-08 Completed University of 00:00:00 [facility] TDAP 2020-05-08 Completed University of 00:00:00 [facility] MMR 2018-10-13 Completed University of 00:00:00 [facility] MMR 2018-10-13 Completed University of 00:00:00 [facility] MMR 2018-10-13 Completed University of 00:00:00 [facility] MMR 2018-10-13 Completed University of 00:00:00 [facility] MMR 2018-10-13 Completed University of 00:00:00 [facility] MMR 2018-10-13 Completed University of 00:00:00 [facility] MMR 2018-10-13 Completed University of 00:00:00 [facility] MMR 2018-10-13 Completed University of 00:00:00 [facility] MMR 2018-10-13 Completed University of 00:00:00 [facility] MMR 2018-10-13 Completed University of 00:00:00 [facility] MMR 2018-10-13 Completed University of 00:00:00 [facility] MMR 2018-10-13 Completed University of 00:00:00 [facility] MMR 2018-10-13 Completed University of 00:00:00 [facility] MMR 2018-10-13 Completed University of 00:00:00 [facility] MMR 2018-10-13 Completed University of 00:00:00 [facility] MMR 2018-10-13 Completed University of 00:00:00 [facility] MMR 2018-10-13 Completed University of 00:00:00 [facility] MMR 2018-10-13 Completed University of 00:00:00 [facility] MMR 2018-10-13 Completed University of 00:00:00 [facility] MMR 2018-10-13 Completed University of 00:00:00 [facility] MMR 2018-10-13 Completed University of 00:00:00 [facility] MMR 2018-10-13 Completed University of 00:00:00 [facility] MMR 2018-10-13 Completed University of 00:00:00 [facility] MMR 2018-10-13 Completed University of 00:00:00 [facility] MMR 2018-10-13 Completed University of 00:00:00 [facility] MMR 2018-10-13 Completed University of 00:00:00 [facility] MMR 2018-10-13 Completed University of 00:00:00 [facility] MMR 2018-10-13 Completed University of 00:00:00 [facility] MMR 2018-10-13 Completed University of 00:00:00 [facility] MMR 2018-10-13 Completed University of 00:00:00 [facility] MMR 2018-10-13 Completed University of 00:00:00 [facility] MMR 2018-10-13 Completed University of 00:00:00 [facility] MMR 2018-10-13 Completed University of 00:00:00 [facility] MMR 2018-10-13 Completed University of 00:00:00 [facility] MMR 2018-10-13 Completed University of 00:00:00 [facility] MMR 2018-10-13 Completed University of 00:00:00 [facility] MMR 2018-10-13 Completed University of 00:00:00 [facility] MMR 2018-10-13 Completed University of 00:00:00 [facility] MMR 2018-10-13 Completed University of 00:00:00 [facility] MMR 2018-10-13 Completed University of 00:00:00 [facility] MMR 2018-10-13 Completed University of 00:00:00 [facility] MMR 2018-10-13 Completed University of 00:00:00 [facility] 2018-10-13 Completed University of 00:00:00 [facility] MMR 2018-10-13 Completed University of 00:00:00 [facility] MMR 2018-10-13 Completed University of 00:00:00 [facility] MMR 2018-10-13 Completed University of 00:00:00 [facility] 2018-10-13 Completed University of 00:00:00 [facility] 2018-10-13 Completed University of 00:00:00 [facility] MMR 2018-10-13 Completed University of 00:00:00 [facility] MMR 2018-10-13 Completed University of 00:00:00 [facility] MMR 2018-10-13 Completed University of 00:00:00 [facility] MMR 2018-10-13 Completed University of 00:00:00 [facility] MMR 2018-10-13 Completed University of 00:00:00 [facility] MMR 2018-10-13 Completed University of 00:00:00 [facility] MMR 2018-10-13 Completed University of 00:00:00 [facility] MMR 2018-10-13 Completed University of 00:00:00 [facility] MMR 2018-10-13 Completed University of 00:00:00 [facility] MMR 2018-10-13 Completed University of 00:00:00 [facility] MMR 2018-10-13 Completed University of 00:00:00 [facility] MMR 2018-10-13 Completed University of 00:00:00 [facility] MMR 2018-10-13 Completed University of 00:00:00 [facility] MMR 2018-10-13 Completed University of 00:00:00 [facility] MMR 2018-10-13 Completed University of 00:00:00 [facility] MMR 2018-10-13 Completed University of 00:00:00 [facility] MMR 2018-10-13 Completed University of 00:00:00 [facility] MMR 2018-10-13 Completed University of 00:00:00 [facility] MMR 2018-10-13 Completed University of 00:00:00 [facility] MMR 2018-10-13 Completed University of 00:00:00 [facility] MMR 2018-10-13 Completed University of 00:00:00 [facility] TDAP (ADACEL) 2018-07-29 Completed University of VACCINE 00:00:00 [facility] TDAP (ADACEL) 2018-07-29 Completed University of VACCINE 00:00:00 [facility] TDAP (ADACEL) 2018-07-29 Completed University of VACCINE 00:00:00 [facility] TDAP (ADACEL) 2018-07-29 Completed University of VACCINE 00:00:00 [facility] TDAP (ADACEL) 2018-07-29 Completed University of VACCINE 00:00:00 [facility] TDAP (ADACEL) 2018-07-29 Completed University of VACCINE 00:00:00 [facility] TDAP (ADACEL) 2018-07-29 Completed University of VACCINE 00:00:00 [facility] TDAP (ADACEL) 2018-07-29 Completed University of VACCINE 00:00:00 [facility] TDAP (ADACEL) 2018-07-29 Completed University of VACCINE 00:00:00 [facility] TDAP (ADACEL) 2018-07-29 Completed University of VACCINE 00:00:00 [facility] TDAP (ADACEL) 2018-07-29 Completed University of VACCINE 00:00:00 [facility] TDAP (ADACEL) 2018-07-29 Completed University of VACCINE 00:00:00 [facility] TDAP (ADACEL) 2018-07-29 Completed University of VACCINE 00:00:00 [facility] TDAP (ADACEL) 2018-07-29 Completed University of VACCINE 00:00:00 [facility] TDAP (ADACEL) 2018-07-29 Completed University of VACCINE 00:00:00 [facility] TDAP (ADACEL) 2018-07-29 Completed University of VACCINE 00:00:00 [facility] TDAP (ADACEL) 2018-07-29 Completed University of VACCINE 00:00:00 [facility] TDAP (ADACEL) 2018-07-29 Completed University of VACCINE 00:00:00 [facility] TDAP (ADACEL) 2018-07-29 Completed University of VACCINE 00:00:00 [facility] TDAP (ADACEL) 2018-07-29 Completed University of VACCINE 00:00:00 [facility] TDAP (ADACEL) 2018-07-29 Completed University of VACCINE 00:00:00 [facility] TDAP (ADACEL) 2018-07-29 Completed University of VACCINE 00:00:00 [facility] TDAP (ADACEL) 2018-07-29 Completed [facility] VACCINE 00:00:00 [facility] [facility] TDAP (ADACEL) 2018-07-29 Completed [facility] VACCINE 00:00:00 [facility] TDAP (ADACEL) 2018-07-29 Completed [facility] VACCINE 00:00:00 [facility] TDAP (ADACEL) 2018-07-29 Completed [facility] VACCINE 00:00:00 [facility] TDAP (ADACEL) 2018-07-29 Completed [facility] VACCINE 00:00:00 [facility] TDAP (ADACEL) 2018-07-29 Completed [facility] VACCINE 00:00:00 [facility] TDAP (ADACEL) 2018-07-29 Completed [facility] VACCINE 00:00:00 [facility] TDAP (ADACEL) 2018-07-29 Completed [facility] VACCINE 00:00:00 [facility] TDAP (ADACEL) 2018-07-29 Completed [facility] VACCINE 00:00:00 [facility] TDAP (ADACEL) 2018-07-29 Completed [facility] VACCINE 00:00:00 [facility] TDAP (ADACEL) 2018-07-29 Completed [facility] VACCINE 00:00:00 [facility] TDAP (ADACEL) 2018-07-29 Completed [facility] VACCINE 00:00:00 [facility] TDAP (ADACEL) 2018-07-29 Completed [facility] VACCINE 00:00:00 [facility] TDAP (ADACEL) 2018-07-29 Completed [facility] VACCINE 00:00:00 [facility] TDAP (ADACEL) 2018-07-29 Completed [facility] VACCINE 00:00:00 [facility] TDAP (ADACEL) 2018-07-29 Completed [facility] VACCINE 00:00:00 [facility] TDAP (ADACEL) 2018-07-29 Completed [facility] VACCINE 00:00:00 [facility] TDAP (ADACEL) 2018-07-29 Completed [facility] VACCINE 00:00:00 [facility] TDAP (ADACEL) 2018-07-29 Completed [facility] VACCINE 00:00:00 [facility] TDAP (ADACEL) 2018-07-29 Completed [facility] VACCINE 00:00:00 [facility] TDAP (ADACEL) 2018-07-29 Completed [facility] VACCINE 00:00:00 [facility] TDAP (ADACEL) 2018-07-29 Completed [facility] VACCINE 00:00:00 [facility] TDAP (ADACEL) 2018-07-29 Completed [facility] VACCINE 00:00:00 [facility] TDAP (ADACEL) 2018-07-29 Completed [facility] VACCINE 00:00:00 [facility] TDAP (ADACEL) 2018-07-29 Completed [facility] VACCINE 00:00:00 [facility] TDAP (ADACEL) 2018-07-29 Completed [facility] VACCINE 00:00:00 [facility] TDAP (ADACEL) 2018-07-29 Completed [facility] VACCINE 00:00:00 [facility] TDAP (ADACEL) 2018-07-29 Completed [facility] VACCINE 00:00:00 [facility] TDAP (ADACEL) 2018-07-29 Completed [facility] VACCINE 00:00:00 [facility] TDAP (ADACEL) 2018-07-29 Completed [facility] VACCINE 00:00:00 [facility] TDAP (ADACEL) 2018-07-29 Completed [facility] VACCINE 00:00:00 [facility] TDAP (ADACEL) 2018-07-29 Completed [facility] VACCINE 00:00:00 [facility] TDAP (ADACEL) 2018-07-29 Completed [facility] VACCINE 00:00:00 [facility] TDAP (ADACEL) 2018-07-29 Completed [facility] VACCINE 00:00:00 [facility] TDAP (ADACEL) 2018-07-29 Completed [facility] VACCINE 00:00:00 [facility] TDAP (ADACEL) 2018-07-29 Completed [facility] VACCINE 00:00:00 [facility] TDAP (ADACEL) 2018-07-29 Completed [facility] VACCINE 00:00:00 [facility] TDAP (ADACEL) 2018-07-29 Completed [facility] VACCINE 00:00:00 [facility] TDAP (ADACEL) 2018-07-29 Completed [facility] VACCINE 00:00:00 [facility] TDAP (ADACEL) 2018-07-29 Completed [facility] VACCINE 00:00:00 [facility] TDAP (ADACEL) 2018-07-29 Completed [facility] VACCINE 00:00:00 [facility] TDAP (ADACEL) 2018-07-29 Completed [facility] VACCINE 00:00:00 [facility] TDAP (ADACEL) 2018-07-29 Completed [facility] VACCINE 00:00:00 [facility] TDAP (ADACEL) 2018-07-29 Completed [facility] VACCINE 00:00:00 [facility] TDAP (ADACEL) 2018-07-29 Completed [facility] VACCINE 00:00:00 [facility] TDAP (ADACEL) 2018-07-29 Completed [facility] VACCINE 00:00:00 [facility] TDAP (ADACEL) 2018-07-29 Completed [facility] VACCINE 00:00:00 [facility] TDAP (ADACEL) 2018-07-29 Completed [facility] VACCINE 00:00:00 [facility] TDAP (ADACEL) 2018-07-29 Completed [facility] VACCINE 00:00:00 [facility] TDAP (ADACEL) 2018-07-29 Completed [facility] VACCINE 00:00:00 [facility] TDAP (ADACEL) 2018-07-29 Completed [facility] VACCINE 00:00:00 [facility] TDAP (ADACEL) 2018-07-29 Completed [facility] VACCINE 00:00:00 [facility] TDAP (ADACEL) 2018-07-29 Completed [facility] VACCINE 00:00:00 [facility] TDAP (ADACEL) 2018-07-29 Completed [facility] VACCINE 00:00:00 [facility] TDAP (ADACEL) 2018-07-29 Completed [facility] VACCINE 00:00:00 [facility] TDAP (ADACEL) 2018-07-29 Completed [facility] VACCINE 00:00:00 [facility] TDAP (ADACEL) 2018-07-29 Completed [facility] VACCINE 00:00:00 [facility] TDAP (ADACEL) 2018-07-29 Completed [facility] VACCINE 00:00:00 [facility] TDAP (ADACEL) 2018-07-29 Completed [facility] VACCINE 00:00:00 [facility] TDAP (ADACEL) 2018-07-29 Completed [facility] VACCINE 00:00:00 [facility] TDAP 2009-02-17 Completed [facility] 00:00:00 [facility] TDAP 2009-02-17 Completed [facility] 00:00:00 [facility] TDAP 2009-02-17 Completed [facility] 00:00:00 [facility] TDAP 2009-02-17 Completed [facility] 00:00:00 [facility] TDAP 2009-02-17 Completed [facility] 00:00:00 [facility] TDAP 2009-02-17 Completed [facility] 00:00:00 [facility] TDAP 2009-02-17 Completed [facility] 00:00:00 [facility] TDAP 2009-02-17 Completed [facility] 00:00:00 [facility] TDAP 2009-02-17 Completed [facility] 00:00:00 [facility] TDAP 2009-02-17 Completed [facility] 00:00:00 [facility] TDAP 2009-02-17 Completed [facility] 00:00:00 [facility] TDAP 2009-02-17 Completed [facility] 00:00:00 [facility] TDAP 2009-02-17 Completed [facility] 00:00:00 [facility] TDAP 2009-02-17 Completed [facility] 00:00:00 [facility] TDAP 2009-02-17 Completed [facility] 00:00:00 [facility] TDAP 2009-02-17 Completed [facility] 00:00:00 [facility] TDAP 2009-02-17 Completed [facility] 00:00:00 [facility] TDAP 2009-02-17 Completed [facility] 00:00:00 [facility] TDAP 2009-02-17 Completed [facility] 00:00:00 [facility] TDAP 2009-02-17 Completed [facility] 00:00:00 [facility] TDAP 2009-02-17 Completed [facility] 00:00:00 [facility] TDAP 2009-02-17 Completed [facility] 00:00:00 [facility] TDAP 2009-02-17 Completed [facility] 00:00:00 [facility] TDAP 2009-02-17 Completed [facility] 00:00:00 [facility] TDAP 2009-02-17 Completed [facility] 00:00:00 [facility] TDAP 2009-02-17 Completed [facility] 00:00:00 [facility] TDAP 2009-02-17 Completed [facility] 00:00:00 [facility] TDAP 2009-02-17 Completed [facility] 00:00:00 [facility] TDAP 2009-02-17 Completed [facility] 00:00:00 [facility] TDAP 2009-02-17 Completed [facility] 00:00:00 [facility] TDAP 2009-02-17 Completed [facility] 00:00:00 [facility] TDAP 2009-02-17 Completed [facility] 00:00:00 [facility] TDAP 2009-02-17 Completed [facility] 00:00:00 [facility] TDAP 2009-02-17 Completed [facility] of 00:00:00 [facility] Tdap 2009-02-17 Completed [facility] of 00:00:00 [facility] Tdap 2009-02-17 Completed [facility] 00:00:00 [facility] Tdap 2009-02-17 Completed [facility] 00:00:00 [facility] Tdap 2009-02-17 Completed [facility] 00:00:00 [facility] Tdap 2009-02-17 Completed [facility] 00:00:00 [facility] Tdap 2009-02-17 Completed [facility] 00:00:00 [facility] Tdap 2009-02-17 Completed [facility] 00:00:00 [facility] Tdap 2009-02-17 Completed [facility] 00:00:00 [facility] Tdap 2009-02-17 Completed [facility] 00:00:00 [facility] Tdap 2009-02-17 Completed [facility] 00:00:00 [facility] Tdap 2009-02-17 Completed [facility] 00:00:00 [facility] Tdap 2009-02-17 Completed [facility] 00:00:00 [facility] Tdap 2009-02-17 Completed [facility] 00:00:00 [facility] Tdap 2009-02-17 Completed [facility] 00:00:00 [facility] Tdap 2009-02-17 Completed [facility] 00:00:00 [facility] Tdap 2009-02-17 Completed [facility] 00:00:00 [facility] Tdap 2009-02-17 Completed [facility] 00:00:00 [facility] Tdap 2009-02-17 Completed [facility] 00:00:00 [facility] Tdap 2009-02-17 Completed [facility] 00:00:00 [facility] Tdap 2009-02-17 Completed [facility] 00:00:00 [facility] Tdap 2009-02-17 Completed [facility] 00:00:00 [facility] TDAP 2009-02-17 Completed [facility] 00:00:00 [facility] TDAP 2009-02-17 Completed [facility] 00:00:00 [facility] TDAP 2009-02-17 Completed [facility] 00:00:00 [facility] TDAP 2009-02-17 Completed [facility] 00:00:00 [facility] TDAP 2009-02-17 Completed [facility] 00:00:00 [facility] TDAP 2009-02-17 Completed [facility] 00:00:00 [facility] TDAP 2009-02-17 Completed [facility] 00:00:00 [facility] TDAP 2009-02-17 Completed [facility] 00:00:00 [facility] TDAP 2009-02-17 Completed [facility] 00:00:00 [facility] TDAP 2009-02-17 Completed [facility] 00:00:00 [facility] TDAP 2009-02-17 Completed [facility] 00:00:00 [facility] TDAP 2009-02-17 Completed [facility] 00:00:00 [facility] TDAP 2009-02-17 Completed [facility] 00:00:00 [facility] TDAP 2009-02-17 Completed [facility] 00:00:00 [facility] TDAP 2009-02-17 Completed [facility] 00:00:00 [facility] TDAP 2009-02-17 Completed [facility] 00:00:00 [facility] TDAP 2009-02-17 Completed [facility] 00:00:00 [facility] TDAP 2009-02-17 Completed [facility] 00:00:00 [facility] TDAP 2009-02-17 Completed [facility] 00:00:00 [facility] TDAP 2009-02-17 Completed [facility] 00:00:00 [facility] TDAP 2009-02-17 Completed [facility] 00:00:00 [facility] TDAP 2009-02-17 Completed [facility] 00:00:00 [facility] TDAP 2009-02-17 Completed [facility] 00:00:00 [facility] TDAP 2009-02-17 Completed [facility] 00:00:00 [facility] TDAP 2009-02-17 Completed [facility] of 00:00:00 [facility] TDAP 2009-02-17 Completed [facility] 00:00:00 [facility] TDAP 2009-02-17 Completed [facility] 00:00:00 [facility] Vital Signs Vital Name Observation Time Observation Value Comments Source Systolic blood 2020-08-30 13:38:00 125 mm[Hg] Univer sity of pressure [facility] Diastolic blood 2020-08-30 13:38:00 80 mm[Hg] Unive rsity of pressure [facility] Heart rate 2020-08-30 13:38:00 67 /min [facility] Body temperature 2020-08-30 13:38:00 36.5 Anel Univ ersity of [facility] Respiratory rate 2020-08-30 13:38:00 16 /min Univ ersity of [facility] Body height 2020-08-30 13:38:00 170.2 cm [facility] Body weight 2020-08-30 13:38:00 103.023 kg [facility] BMI 2020-08-30 13:38:00 35.57 kg/m2 [facility] Systolic blood 2020-08-07 14:31:00 118 mm[Hg] [facility] sity of pressure [facility] Diastolic blood 2020-08-07 14:31:00 79 mm[Hg] Unive rsity of pressure [facility] Heart rate 2020-08-07 14:31:00 60 /min [facility] Body temperature 2020-08-07 14:31:00 36.83 Anel [facility] Respiratory rate 2020-08-07 14:31:00 16 /min Univ ersity of [facility] Body height 2020-08-07 14:31:00 170.2 cm [facility] Body weight 2020-08-07 14:31:00 101.379 kg [facility] BMI 2020-08-07 14:31:00 35.01 kg/m2 [facility] Systolic blood 2020-07-16 12:54:00 124 mm[Hg] Un[facility] sity of pressure [facility] Diastolic blood 2020-07-16 12:54:00 74 mm[Hg] Unive rsity of pressure [facility] Heart rate 2020-07-16 12:54:00 67 /min [facility] Body temperature 2020-07-16 12:54:00 36.22 Anel [facility] Respiratory rate 2020-07-16 12:54:00 18 /min [facility] Oxygen saturation in 2020-07-16 12:54:00 97 /min [facility] of Arterial blood by [facility] Pulse oximetry Branch Systolic blood 2020-07-15 15:20:00 120 mm[Hg] Univer sity of pressure [facility] Diastolic blood 2020-07-15 15:20:00 53 mm[Hg] Unive rsity of pressure [facility] Heart rate 2020-07-15 15:20:00 85 /min [facility] Respiratory rate 2020-07-15 15:20:00 18 /min Univ ersity of [facility] Oxygen saturation in 2020-07-15 15:20:00 100 /min [facility] Arterial blood by [facility] Pulse oximetry [facility] Body temperature 2020-07-15 14:20:00 36.72 Anel [facility] Systolic blood 2020-07-10 19:56:00 130 mm[Hg] Univer sity of pressure [facility] Diastolic blood 2020-07-10 19:56:00 81 mm[Hg] [facility] rsity of pressure [facility] Heart rate 2020-07-10 19:56:00 87 /min [facility] Body temperature 2020-07-10 19:56:00 36.78 Anel [facility] Respiratory rate 2020-07-10 19:56:00 16 /min Univ ersity of [facility] Body height 2020-07-10 19:56:00 170.2 cm [facility] of [facility] Body weight 2020-07-10 19:56:00 111.613 kg [facility] ty of [facility] BMI 2020-07-10 19:56:00 38.54 kg/m2 [facility] Systolic blood 2020-07-06 19:35:00 132 mm[Hg] Univer sity of pressure [facility] Diastolic blood 2020-07-06 19:35:00 72 mm[Hg] Unive rsity of pressure [facility] Heart rate 2020-07-06 19:35:00 98 /min [facility] Body temperature 2020-07-06 19:35:00 36.78 Anel [facility] Respiratory rate 2020-07-06 19:35:00 16 /min [facility] Body height 2020-07-06 19:35:00 170.2 cm [facility] Body weight 2020-07-06 19:35:00 110.224 kg [facility] BMI 2020-07-06 19:35:00 38.06 kg/m2 [facility] Systolic blood 2020-07-03 19:46:00 125 mm[Hg] Univer sity of pressure [facility] Diastolic blood 2020-07-03 19:46:00 79 mm[Hg] Unive rsity of pressure [facility] Heart rate 2020-07-03 19:46:00 99 /min [facility] Body temperature 2020-07-03 19:46:00 36.89 Anel [facility] Respiratory rate 2020-07-03 19:46:00 16 /min [facility] Body height 2020-07-03 19:46:00 170.2 cm [facility] Body weight 2020-07-03 19:46:00 110.309 kg [facility] BMI 2020-07-03 19:46:00 38.09 kg/m2 [facility] Systolic blood 2020-06-29 18:35:00 135 mm[Hg] Univer sity of pressure [facility] Diastolic blood 2020-06-29 18:35:00 71 mm[Hg] Unive rsity of pressure [facility] Heart rate 2020-06-29 18:35:00 94 /min [facility] Body temperature 2020-06-29 18:35:00 36.44 Anel [facility] Respiratory rate 2020-06-29 18:35:00 16 /min [facility] Body height 2020-06-29 18:35:00 170.2 cm [facility] Body weight 2020-06-29 18:35:00 109.487 kg [facility] BMI 2020-06-29 18:35:00 37.80 kg/m2 [facility] Systolic blood 2020-06-26 19:04:00 137 mm[Hg] Univer sity of pressure [facility] Diastolic blood 2020-06-26 19:04:00 79 mm[Hg] Unive rsity of pressure [facility] Heart rate 2020-06-26 19:04:00 97 /min [facility] Body temperature 2020-06-26 19:04:00 36.89 Anel [facility] Respiratory rate 2020-06-26 19:04:00 16 /min [facility] Body height 2020-06-26 19:04:00 170.2 cm [facility] Body weight 2020-06-26 19:04:00 110.252 kg [facility] BMI 2020-06-26 19:04:00 38.07 kg/m2 [facility] Systolic blood 2020-06-22 14:09:00 127 mm[Hg] Univer sity of pressure [facility] Diastolic blood 2020-06-22 14:09:00 72 mm[Hg] Unive rsity of pressure [facility] Heart rate 2020-06-22 14:09:00 94 /min [facility] Body temperature 2020-06-22 14:09:00 36.67 Anel [facility] Respiratory rate 2020-06-22 14:09:00 16 /min [facility] Body height 2020-06-22 14:09:00 170.2 cm [facility] Body weight 2020-06-22 14:09:00 108.977 kg [facility] BMI 2020-06-22 14:09:00 37.63 kg/m2 [facility] Heart rate 2020-06-13 23:55:00 105 /min [facility] Oxygen saturation in 2020-06-13 23:55:00 100 /min [facility] Arterial blood by [facility] Pulse oximetry [facility] Systolic blood 2020-06-13 23:30:00 138 mm[Hg] Univer sity of pressure [facility] Diastolic blood 2020-06-13 23:30:00 76 mm[Hg] Unive rsity of pressure [facility] Body temperature 2020-06-13 23:17:00 36.89 Anel [facility] Respiratory rate 2020-06-13 23:17:00 18 /min [facility] Body height 2020-06-13 23:17:00 170.2 cm [facility] Body weight 2020-06-13 23:17:00 108.773 kg [facility] BMI 2020-06-13 23:17:00 37.56 kg/m2 [facility] Systolic blood 2020-06-06 00:45:00 146 mm[Hg] Univer sity of pressure [facility] Diastolic blood 2020-06-06 00:45:00 84 mm[Hg] Unive rsity of pressure [facility] Heart rate 2020-06-06 00:45:00 99 /min [facility] Oxygen saturation in 2020-06-06 00:45:00 100 /min [facility] Arterial blood by [facility] Pulse oximetry Branch Body temperature 2020-06-05 23:36:00 37.06 Anel [facility] Respiratory rate 2020-06-05 23:36:00 18 /min [facility] Body height 2020-06-05 23:36:00 170.2 cm [facility] Body weight 2020-06-05 23:36:00 109.045 kg [facility] BMI 2020-06-05 23:36:00 37.65 kg/m2 [facility] Heart rate 2020-05-31 02:00:00 99 /min [facility] Oxygen saturation in 2020-05-31 01:45:00 99 /min [facility] Arterial blood by [facility] Pulse oximetry [facility] Systolic blood 2020-05-31 01:15:00 134 mm[Hg] Univer sity of pressure [facility] Diastolic blood 2020-05-31 01:15:00 70 mm[Hg] Unive rsity of pressure [facility] Body temperature 2020-05-31 01:15:00 36.83 Anel [facility] Respiratory rate 2020-05-31 01:15:00 20 /min [facility] Body height 2020-05-31 01:15:00 170.2 cm [facility] Body weight 2020-05-31 01:15:00 108.863 kg [facility] BMI 2020-05-31 01:15:00 37.59 kg/m2 [facility] Systolic blood 2020-05-22 15:40:00 124 mm[Hg] [facility] Diastolic blood 2020-05-22 15:40:00 72 mm[Hg] [facility] Heart rate 2020-05-22 15:40:00 90 /min [facility] Body temperature 2020-05-22 15:40:00 36.89 Anel [facility] Respiratory rate 2020-05-22 15:40:00 16 /min [facility] Body height 2020-05-22 15:40:00 170.2 cm [facility] Body weight 2020-05-22 15:40:00 107.134 kg [facility] BMI 2020-05-22 15:40:00 36.99 kg/m2 [facility] Systolic blood 2020-05-08 14:33:00 127 mm[Hg] [facility] Diastolic blood 2020-05-08 14:33:00 74 mm[Hg] [facility] Heart rate 2020-05-08 14:32:00 99 /min [facility] Body temperature 2020-05-08 14:32:00 36.61 Anel [facility] Respiratory rate 2020-05-08 14:32:00 16 /min [facility] Body height 2020-05-08 14:32:00 170.2 cm [facility] Body weight 2020-05-08 14:32:00 107.106 kg [facility] BMI 2020-05-08 14:32:00 36.98 kg/m2 [facility] Systolic blood 2020-04-25 15:50:00 139 mm[Hg] [facility] Diastolic blood 2020-04-25 15:50:00 83 mm[Hg] [facility] Heart rate 2020-04-25 15:06:00 111 /min [facility] Body temperature 2020-04-25 15:06:00 36.72 Anel [facility] Respiratory rate 2020-04-25 15:06:00 16 /min [facility] Body height 2020-04-25 15:06:00 170.2 cm [facility] Body weight 2020-04-25 15:06:00 106.17 kg [facility] BMI 2020-04-25 15:06:00 36.66 kg/m2 [facility] Systolic blood 2020-04-20 16:25:00 123 mm[Hg] [facility] Diastolic blood 2020-04-20 16:25:00 68 mm[Hg] [facility] Heart rate 2020-04-20 16:25:00 88 /min [facility] Body temperature 2020-04-20 16:25:00 36.61 Anel [facility] Respiratory rate 2020-04-20 16:25:00 16 /min [facility] Body height 2020-04-20 16:25:00 170.2 cm [facility] Body weight 2020-04-20 16:25:00 105.858 kg [facility] BMI 2020-04-20 16:25:00 36.55 kg/m2 [facility] Systolic blood 2020-02-29 19:10:00 134 mm[Hg] [facility] Diastolic blood 2020-02-29 19:10:00 80 mm[Hg] [facility] Heart rate 2020-02-29 19:10:00 100 /min [facility] Body temperature 2020-02-29 19:10:00 36.72 Anel [facility] Respiratory rate 2020-02-29 19:10:00 16 /min [facility] Body height 2020-02-29 19:10:00 170.2 cm [facility] Body weight 2020-02-29 19:10:00 100.018 kg [facility] BMI 2020-02-29 19:10:00 34.54 kg/m2 [facility] Systolic blood 2020-02-01 19:50:00 138 mm[Hg] [facility] Diastolic blood 2020-02-01 19:50:00 73 mm[Hg] [facility] Heart rate 2020-02-01 19:50:00 86 /min [facility] Body temperature 2020-02-01 19:50:00 36.83 Anel [facility] Respiratory rate 2020-02-01 19:50:00 16 /min [facility] Body height 2020-02-01 19:50:00 170.2 cm [facility] Body weight 2020-02-01 19:50:00 98.544 kg [facility] BMI 2020-02-01 19:50:00 34.03 kg/m2 [facility] Systolic blood 2020-01-04 20:39:00 135 mm[Hg] [facility] Diastolic blood 2020-01-04 20:39:00 75 mm[Hg] [facility] Heart rate 2020-01-04 20:38:00 94 /min [facility] Body temperature 2020-01-04 20:38:00 36.5 Anel [facility] Respiratory rate 2020-01-04 20:38:00 16 /min [facility] Body height 2020-01-04 20:38:00 170.2 cm [facility] Body weight 2020-01-04 20:38:00 99.139 kg [facility] BMI 2020-01-04 20:38:00 34.23 kg/m2 [facility] Systolic blood 2019-12-03 20:12:00 128 mm[Hg] [facility] Diastolic blood 2019-12-03 20:12:00 68 mm[Hg] [facility] Heart rate 2019-12-03 19:16:00 90 /min [facility] Body temperature 2019-12-03 19:16:00 36.61 Anel [facility] Respiratory rate 2019-12-03 19:16:00 18 /min [facility] Body height 2019-12-03 19:16:00 170.2 cm [facility] Body weight 2019-12-03 19:16:00 102.059 kg [facility] BMI 2019-12-03 19:16:00 35.24 kg/m2 [facility] Oxygen saturation in 2019-12-03 19:16:00 100 /min University of Arterial blood by [facility] Pulse oximetry Branch Systolic blood 2019-03-12 20:41:00 132 mm[Hg] [facility]ity [facility] Diastolic blood 2019-03-12 20:41:00 73 mm[Hg] [facility]ity [facility] Heart rate 2019-03-12 20:41:00 95 /min [facility] of [facility] Body temperature 2019-03-12 20:41:00 36.78 Anel [facility] Respiratory rate 2019-03-12 20:41:00 16 /min [facility] Body height 2019-03-12 20:41:00 170.2 cm [facility] Body weight 2019-03-12 20:41:00 89.841 kg [facility] BMI 2019-03-12 20:41:00 31.02 kg/m2 [facility] Systolic blood 2019-03-12 20:41:00 132 mm[Hg] [facility] Diastolic blood 2019-03-12 20:41:00 73 mm[Hg] Unive rsity of pressure [facility] Heart rate 2019-03-12 20:41:00 95 /min Universi ty of [facility] Body temperature 2019-03-12 20:41:00 36.78 Anel [facility] Respiratory rate 2019-03-12 20:41:00 16 /min [facility] Body height 2019-03-12 20:41:00 170.2 cm [facility] [place] [facility] [place] Body weight 2019-03-12 20:41:00 89.841 kg [facility] of [facility] BMI 2019-03-12 20:41:00 31.02 kg/m2 [facility] Systolic blood 2018-11-02 14:26:00 113 mm[Hg] Univer [facility]ity of pressure [facility] Diastolic blood 2018-11-02 14:26:00 67 mm[Hg] Unive rsity of pressure [facility] Heart rate 2018-11-02 14:26:00 50 /min Universi [facility] of [facility] Body temperature 2018-11-02 14:26:00 36.61 Anel [facility] Respiratory rate 2018-11-02 14:26:00 16 /min [facility] Body height 2018-11-02 14:26:00 170.2 cm [facility] [place] [facility] [place] Body weight 2018-11-02 14:26:00 86.779 kg [facility] BMI 2018-11-02 14:26:00 29.96 kg/m2 [facility] Systolic blood 2018-10-13 13:00:00 125 mm[Hg] [facility]iver [facility]ity of pressure [facility] Diastolic blood 2018-10-13 13:00:00 68 mm[Hg] Unive rsity of pressure [facility] Heart rate 2018-10-13 13:00:00 69 /min [facility]i [facility] of [facility] Body temperature 2018-10-13 13:00:00 36.83 Anel [facility] Respiratory rate 2018-10-13 13:00:00 18 /min [facility] Oxygen saturation in 2018-10-13 13:00:00 98 /min [facility] Arterial blood by [facility] Pulse oximetry Branch Body height 2018-10-11 14:30:00 170.2 cm Universi ty of [facility] Body weight 2018-10-11 14:30:00 96.48 kg [facility]i [facility] of [facility] BMI 2018-10-11 14:30:00 33.31 kg/m2 [facility] Systolic blood 2018-10-07 16:39:00 129 mm[Hg] [facility] Diastolic blood 2018-10-07 16:39:00 71 mm[Hg] [facility] Heart rate 2018-10-07 16:39:00 86 /min [facility] Body temperature 2018-10-07 16:39:00 36.67 Anel [facility] Respiratory rate 2018-10-07 16:39:00 16 /min [facility] Body height 2018-10-07 16:39:00 170.2 cm [facility] Body weight 2018-10-07 16:39:00 96.673 kg [facility] BMI 2018-10-07 16:39:00 33.38 kg/m2 [facility] Systolic blood 2018-09-30 15:59:00 125 mm[Hg] [facility] Diastolic blood 2018-09-30 15:59:00 70 mm[Hg] [facility] Heart rate 2018-09-30 15:59:00 82 /min [facility] Body temperature 2018-09-30 15:59:00 36.17 Anel [facility] Respiratory rate 2018-09-30 15:59:00 16 /min [facility] Body height 2018-09-30 15:59:00 170.2 cm [facility] Body weight 2018-09-30 15:59:00 97.58 kg [facility] BMI 2018-09-30 15:59:00 33.69 kg/m2 [facility] Systolic blood 2018-09-28 17:05:00 123 mm[Hg] [facility] Diastolic blood 2018-09-28 17:05:00 75 mm[Hg] [facility] Heart rate 2018-09-28 17:05:00 106 /min [facility] Respiratory rate 2018-09-28 17:05:00 18 /min [facility] Body height 2018-09-28 17:05:00 170.2 cm [facility] Body weight 2018-09-28 17:05:00 95.618 kg [facility] BMI 2018-09-28 17:05:00 33.02 kg/m2 [facility] Oxygen saturation in 2018-09-28 17:05:00 98 /min [facility] Arterial blood by [facility] Pulse oximetry Branch Systolic blood 2018-09-23 14:12:00 132 mm[Hg] Univer sity of pressure [facility] Diastolic blood 2018-09-23 14:12:00 73 mm[Hg] [facility] 2018-09-23 14:12:00 99 /min [facility] Body temperature 2018-09-23 14:12:00 36.39 Anel [facility] 2018-09-23 14:12:00 16 /min [facility] Body height 2018-09-23 14:12:00 170.2 cm [facility] Body weight 2018-09-23 14:12:00 95.482 kg [facility] BMI 2018-09-23 14:12:00 32.97 kg/m2 [facility] Procedures Procedure Date / Time Performing Clinician Source Performed CBC WITH DIFF 2020-07-16 10:20:00 [place] [facility] CBC WITH DIFF 2020-07-16 10:20:00 Mike [facility] TUBAL LIGATION 2020-07-15 22:29:00 Kate Alexandre [facility] VENOUS CORD GAS 2020-07-15 14:21:00 Evelyn [facility] VENOUS CORD GAS 2020-07-15 14:21:00 Evelyn [facility] POCT GLUCOSE (AUTOMATED) 2020-07-15 11:56:00 Omere, Chasey [facility] POCT GLUCOSE (AUTOMATED) 2020-07-15 11:56:00 Omere, Chasey [facility] POCT GLUCOSE (AUTOMATED) 2020-07-15 08:10:00 [facility] 2020-07-15 08:10:00 OmedebraNaomi [facility] URINALYSIS 2020-07-15 06:21:00 Evelyn [facility] PROTEIN CREAT RATIO URINE 2020-07-15 06:21:00 [facility] 2020-07-15 06:21:00 Evelyn San [facility] PROTEIN CREAT RATIO URINE 2020-07-15 06:21:00 [facility] 2020-07-15 04:48:00 Omere Gabrielealie [facility] POCT GLUCOSE (AUTOMATED) 2020-07-15 04:48:00 OmereNaomi [facility] HB ABO GROUPING 2020-07-15 04:42:00 Evelyn San [facility] RHO (D) IMMUNE GLOBULIN 2020-07-15 04:42[facility]00 [facility] 2020-07-15 04:42:00 Evelyn San [facility] RHO (D) IMMUNE GLOBULIN 2020-07-15 04:42:00 [facility] SGOT (ASPARTATE AMINO 2020-07-15 04:40:00 Evelyn San [facility]) Medical Branch CREATININE 2020-07-15 04:40:00 Evelyn [facility] ALANINE AMINO 2020-07-15 04:40:00 Evelyn San [facility] TRANSFERASE(SGPT Medical Branch LACTATE DEHYDROGENASE 2020-07-15 04:40:00 Evelyn [facility] URIC ACID 2020-07-15 04:40:00 Evelyn [facility] CBC WITH DIFF 2020-07-15 04:40:00 Evelyn [facility] HEPATITIS B SURFACE 2020-07-15 04:40:00 Evelyn San [facility] ANTIGEN [facility] HIV 1/2 AG-AB WITH REFLEX 2020-07-15 04:40:00 Evelyn San [facility] GALV ONLY - SYPHILIS 2020-07-15 04:40:00 Evelyn San [facility] IGG/IGM [facility] Branch SGOT (ASPARTATE AMINO 2020-07-15 04:40:00 Evelyn San [facility] TRANSFER) Medical Branch CREATININE 2020-07-15 04:40:00 Evelyn San [facility] ALANINE AMINO 2020-07-15 04:40:00 Evelyn San [facility] TRANSFERASE(SGPT [facility] LACTATE DEHYDROGENASE 2020-07-15 04:40:00 Evelyn San [facility] URIC ACID 2020-07-15 04:40:00 Evelyn San [facility] CBC WITH DIFF 2020-07-15 04:40:00 Evelyn San [facility] HEPATITIS B SURFACE 2020-07-15 04:40:00 Evelyn San [facility] ANTIGEN [facility] HIV 1/2 AG-AB WITH REFLEX 2020-07-15 04:40:00 Evelyn San [facility] GALV ONLY - SYPHILIS 2020-07-15 04:40:00 Evelyn San [facility] IGG/IGM [facility] COVID-19 (ID NOW RAPID 2020-07-15 02:48:00 Omedebra [facility] TESTING) [facility] COVID-19 (ID NOW RAPID 2020-07-15 02:48:00 Omere [facility] TESTING) [facility] LAB ONLY COVID 2020-07-15 02:48:[address] [facility] INTERPRETATION [facility] NON-STRESS TEST 2020-07-10 21:44:58 Lizette Lugo [facility] POCT URINALYSIS 2020-07-10 19:59:00 Lizette Lugo [facility] HOSPITAL ADMISSION 2020-07-08 05:01:00 Doctor Unassigned, [facility] HOSPITAL ADMISSION 2020-07-08 05:01:00 Doctor Unassigned, [facility] NON-STRESS TEST 2020-07-07 03:07:40 Mary Grace [facility] POCT URINALYSIS 2020-07-06 19:43:00 Lizette Lugo [facility] PATIENT QUESTIONNAIRE 2020-07-06 05:01:00 Doctor Unassigned, [facility] PATIENT QUESTIONNAIRE 2020-07-06 05:01:00 Doctor Unassigned, [facility] NON-STRESS TEST 2020-07-03 20:39:49 Zeyad Lugoilola C U [facility] POCT URINALYSIS 2020-07-03 19:47:00 AkinZeyad ruizilola C [facility] NON-STRESS TEST 2020-06-30 01:17:10 Mary [facility] URINE CULTURE 2020-06-29 19:17:00 Mary Grace Nava [facility] POCT URINALYSIS 2020-06-29 18:38:00 Akinsipatricia Lizette C [facility] NON-STRESS TEST 2020-06-26 20:00:14 AkinZeyad ruizilola C U [facility] POCT URINALYSIS 2020-06-26 19:07:00 Akinsipatricia Lizette C [facility] POCT URINALYSIS 2020-06-22 14:10:00 Akinsipatricia Lizette C [facility] COVID-19 (ID NOW RAPID 2020-06-13 23:40:00 Jaclyn Duval [facility] POCT GLUCOSE (AUTOMATED) 2020-06-13 23:39:00 Jaclyn Duval [facility] NOTICE OF PRIVACY 2020-06-13 23:05:[address] [facility] CONSENT/REFUSAL FOR 2020-06-13 23:05:08 Doctor Unassrivka, [facility] DIAGNOSIS AND TREATMENT [facility] CONSENT/REFUSAL FOR 2020-06-05 23:13:27 Doctor Unassrivka, [facility] DIAGNOSIS AND TREATMENT [facility] ASSIGNMENT OF BENEFITS 2020-05-31 00:57:40 Doctor Unassigned, [facility] [place] CONSENT/REFUSAL FOR 2020-05-31 00:57:15 Doctor Unassrivka, [facility] DIAGNOSIS AND TREATMENT [facility] POCT URINALYSIS 2020-05-22 15:41:00 Lizette Lugo [facility] PATIENT QUESTIONNAIRE 2020-05-22 05:01:00 Doctor Mars, [facility] POCT URINALYSIS 2020-05-08 14:47:00 Lizette Lugo [facility] TDAP VACCINE, >11 YRS, IM 2020-05-08 14:31:42 Lizette Lugo [facility] STERILIZATION CONSENT 2020-05-08 05:01:00 Doctor Mars, [facility] FORM [facility] POCT URINALYSIS 2020-04-20 16:26:00 Lizette Lguo [facility] POCT URINALYSIS 2020-02-29 19:14:00 Lizette Lugo [facility] CONSENT FOR SERUM MARKER 2020-02-29 06:01:00 Doctor Mars, [facility] SCREENING [facility] POCT URINALYSIS 2020-02-01 20:26:00 Dayday Graham [facility] FIRST TRIMESTER 2020-01-26 19:45:00 Dayday Graham [facility] ULTRASOUND [facility] HB ABO GROUPING 2019-12-03 20:30:00 Mickey Paul [facility] GLUCOSE 1 HOUR POST 2019-12-03 20:29:00 Paul Arevalo [facility] PRANDIAL [facility] THYROID STIMULATING 2019-12-03 20:29:00 Paul Arevalo [facility] HORMONE [facility] COMP. METABOLIC PANEL 2019-12-03 20:29:00 Mickey Paul [facility] ([id number]) [facility] [place] CBC WITH DIFF 2019-12-03 20:29:00 Mickey [facility] HEPATITIS B SURFACE 2019-12-03 20:29:00 Paul Arevalo [facility] URINE CULTURE 2019-12-03 20:29:00 Mickey [facility] HIV 1/2 AG-AB WITH REFLEX 2019-12-03 20:29:00 [facility] SARS-COV-2 IGG 2019-12-03 20:29:00 Mickey [facility] POCT URINALYSIS 2019-12-03 00:00:00 Mickey [facility] POCT TEST 2019-12-03 00:00:00 Paul Arevalo [facility] CONSENT/REFUSAL FOR 2019-11-29 02:29:26 Doctor Unameet, [facility] DIAGNOSIS AND TREATMENT [facility] CONSENT/REFUSAL FOR 2019-03-12 20:07:12 Doctor Mars, [facility] DIAGNOSIS AND TREATMENT [facility] ASSIGNMENT OF BENEFITS 2019-03-12 20:06:52 Doctor Unameet, Un [facility] CBC WITH DIFFERENTIAL 2018-10-13 09:05:00 Evelyn [facility] VENOUS CORD GAS 2018-10-12 05:36:00 [facility] POCT GLUCOSE (AUTOMATED) 2018-10-12 02:07:00 Altagracia Blandon Un [facility] HEPATITIS B SURFACE 2018-10-11 16:54:00 [facility] TYPE AND SCREEN 2018-10-11 16:54:00 [facility] GALV ONLY - SYPHILIS 2018-10-11 16:54:00 [facility] IGG/IGM Medical Branch HOSPITAL ADMISSION 2018-10-11 05:01:00 Doctor Mars, [facility] POCT URINALYSIS W/O 2018-10-07 16:43:00 Lizette Lugo [facility] [place] [facility] POCT URINALYSIS GLUCOSE & 2018-09-30 16:00:00 Dayday Graham [facility] PROTEIN Medical Branch CONSENT/REFUSAL FOR 2018-09-28 05:01:00 Doctor Unassigned, [facility] DIAGNOSIS AND TREATMENT [facility] POCT URINALYSIS W/O 2018-09-23 14:15:00 Lizette Lugo Uni [facility] [place] Plan of Care Planned Activity Planned Date Details Comments Source Future Scheduled 2030-05-08 DTaP,Tdap,and Td Univers ity of Test 00:00:00 Vaccines (4 - Td) [facility] [code = Branch DTaP,Tdap,and Td Vaccines (4 - Td)] Future Scheduled 2021-04-29 HPV VACCINES (1 - Postponed from Univ ersity of Test 00:00:00 2-dose series) 06/18/2006 [facility] [code = HPV ( or Branch VACCINES (1 - ) 2-dose series)] Future Scheduled 2021-02-20 Screening for University of Test 00:00:00 malignant neoplasm [place] [facility] ical of cervix Branch (procedure) [code = 478425809] Future Scheduled 2020-12-02 Depression University of Test 00:00:00 screening [place] [facility] (procedure) [code Branch = 145821716] Future Scheduled 2020-10-18 INFLUENZA VACCINE Univer sity of Test 00:00:00 (Season Ended) [facility] [code = INFLUENZA Branch VACCINE (Season Ended)] Encounters Start End Encounter Admission Attending Care Care Encounter Source Date/Time Date/Time Type Type Clinicians Facility Department ID 2020-12-17 Outpatient P [facility] [id number] Univers 20:44:03 ity of [facility] 2020-12-17 Outpatient P [facility] [id number] Univers 15:42:38 ity of [facility] 2020-12-17 Outpatient P [facility] [id number] Univers 15:42:20 ity of [facility] 2020-12-17 Outpatient P [facility] [id number] Univers 12:42:32 ity of [facility] 2020-12-17 Outpatient P [facility] [id number] Univers 12:42:20 ity of [facility] 2020-12-06 2020-12-06 Outpatient [facility] [id number] Univers 10:30:00 10:30:00 LIZETTE archer o f [facility] 2020-09-04 2020-09-04 [facility] [id number] Univers 00:00:00 00:00:00 Lizette C HUMAN RESOURCE OFFICER [id number] ity of REGIONAL [id number] Henry as MATERNAL [id number] [facility] [address] [place] [address] 2020-08-30 2020-08-30 Office [facility] [id number] Univers 08:10:27 08:55:14 Visit Lizette C HUMAN RESOURCE OFFICER [id number] ity of REGIONAL [id number] Henry as MATERNAL [id number] [facility] [address] [place] [address] 2020-08-30 2020-08-30 Outpatient [facility] [id number] Univers 08:15:00 08:15:00 LIZETTE vasquez [facility] 2020-08-07 2020-08-07 [facility] [id number] Univers 09:02:18 09:17:18 Lizette C HUMAN RESOURCE OFFICER [id number] ity of Visit REGIONAL [id number] Henry as MATERNAL [id number] [facility] & [address] 2020-08-07 2020-08-07 Outpatient [facility] [id number] Univers 09:15:00 09:15:00 LIZETTE archer o [facility] 2020-07-20 2020-07-20 Outpatient R [facility] [id number] Univers 15:00:00 15:00:00 ity of [facility] 2020-07-18 2020-07-18 Outpatient R [facility] [id number] Univers 14:30:00 14:30:00 ity of [facility] 2020-07-14 2020-07-16 [facility] LIA Souza 1.2.840.114 [id number] Univers 21:46:00 14:09:00 Encounter Chasey NEVILLE 350.1.13.10 ity of [facility] 4.2.7.2.686 [place] [id number] [facility] [address] [place] 2020-07-15 2020-07-15 Surgery Kate Alexandre 1.2.011.112 [id number] Univers 11:50:00 13:16:00 [place]EV[place] 350.1.13.10 it y of [place]2.[place] [id number] [facility] [address] [place] 2020-07-13 2020-07-13 Outpatient R [facility] [id number] Univers 14:00:00 14:00:00 ity [facility] 2020-07-10 2020-07-10 Routine [facility], [facility] 1.2.367.134 [id number] Univers 14:39:24 15:42:26 Lizette C HUMAN RESOURCE OFFICER 350.1.13.10 ity of Visit REGIONAL 4.2.7.2.686 [place] as MATERNAL [phone] Med ical & CHILD [address] [place] [address] 2020-07-10 2020-07-10 Outpatient R [facility] [id number] Univers 14:30:00 14:30:00 ity [facility] 2020-07-06 2020-07-06 Routine Risk, Zpn-Pjznj-Wb/High [facility] 1. 2.840.114 [id number] Univers 13:51:59 15:15:19 Mary Grace Nava HUMAN RESOURCE OFFICER 350.1.13.10 ity of Visit REGIONAL 4.2.7.2.686 [place] as MATERNAL [phone] [facility] ical & CHILD [address] [place] [address] 2020-07-06 2020-07-06 Outpatient R [facility] [id number] Univers 14:00:00 14:00:00 ity [facility] 2020-07-04 2020-07-04 [facility] 1.2.840.114 [id number] Univers 00:00:00 00:00:00 Lizette C HUMAN RESOURCE OFFICER 350.1.13.10 ity of REGIONAL 4.2.7.2.686 Henry as MATERNAL [id number] [facility] [address] [place] [address] 2020-07-04 2020-07-04 Abstract Akinpe, [facility] 1.2.840.114 [id number] Univers 00:00:00 00:00:00 Lizette C HUMAN RESOURCE OFFICER 350.1.13.10 ity of REGIONAL 4.2.7.2.686 Henry as MATERNAL [phone] [facility] & CHILD [address] [place] [address] 2020-07-03 2020-07-03 Routine Akinpe, [facility] 1.2.040.526 [id number] Univers 14:35:38 15:23:50 Lizette C HUMAN RESOURCE OFFICER 350.1.13.10 ity of Visit REGIONAL 4.2.7.2.686 Henry as MATERNAL [id number] [facility] & CHILD [address] [place] [address] 2020-07-03 2020-07-03 Outpatient R [facility] [id number] Univers 14:45:00 14:45:00 ity of [facility] 2020-07-03 2020-07-03 Personal Insurance Advisor Ultrasound, Roberto [facility] 1.2 .840.114 [id number] Univers 14:15:12 14:34:18 Visit Dion Acosta HUMAN RESOURCE OFFICER 350.1.13.10 ity of REGIONAL 4.2.7.2.686 Henry as MATERNAL [phone] [facility] [address] [facility] 2020-06-29 2020-06-29 Routine Risk, Yhj-Jwdkr-Oh/High [facility] 1. 2.840.114 [id number] Univers 13:24:41 14:19:29 Mary Grace Nava HUMAN RESOURCE OFFICER 350.1.13.10 ity of Visit REGIONAL 4.2.7.2.686 Henry as MATERNAL [id number] [facility] [address] [place] [address] 2020-06-29 2020-06-29 Outpatient R [facility] [id number] Univers 14:00:00 14:00:00 ity of [facility] 2020-06-26 2020-06-26 Routine Akinsipe, [facility] 1.2.944.896 [id number] Univers 13:50:58 14:52:08 Lizette C HUMAN RESOURCE OFFICER 350.1.13.10 ity of Visit REGIONAL 4.2.7.2.686 Henry as MATERNAL [phone] [facility] & CHILD [address] [place] [address] 2020-06-26 2020-06-26 Outpatient R [facility] [id number] Univers 14:00:00 14:00:00 ity [facility] 2020-06-22 2020-06-22 Routine Risk, Cjt-Xgoan-Sz/High [facility] 1. 2.840.114 [id number] Univers 08:49:16 09:53:49 Mary Grace Nava HUMAN RESOURCE OFFICER 350.1.13.10 ity of Visit [facility] 4.2.7.2.686 Henry as MATERNAL [id number] [facility] & [address] 2020-06-22 2020-06-22 Outpatient R [facility] [id number] Univers 09:00:00 09:00:00 ity of [facility] 2020-06-22 2020-06-22 Telephone E[facility]formerly [facility], [facility] 1.2.840.114 [id number] Univers 00:00:00 00:00:00 Lizette C HUMAN RESOURCE OFFICER 350.1.13.10 ity of [facility] 4.2.7.2.686 Henry as MATERNAL [phone] [facility] & [address] 2020-06-20 2020-06-20 Outpatient R KINZA [facility] [id number] Univers 10:00:00 10:00:00 TONIO ity [facility] 2020-06-13 2020-06-13 [facility] Jaclyn Duval [facility] 1.2.840.114 [id number] Univers 18:04:00 19:07:00 Encounter Napoleon Paulina 350.1.13.10 ity [facility] 4.2.7.2.686 [facility] [id number] [facility] [address] [place] 2020-06-08 2020-06-08 Outpatient R [facility] [id number] Univers 08:30:00 08:30:00 ity of [facility] 2020-06-05 2020-06-05 [facility] Jaclyn Duval [facility] 1.2.840.114 [id number] Univers 18:10:00 20:23:00 Encounter Radha Mehta 350.1.13.10 ity of [place] 4.2.7.2.686 [facility] [id number] [place] [address] [place] 2020-06-05 2020-06-05 Telephone [facility], [facility] 1.2.920.246 [id number] Univers 00:00:00 00:00:00 Ang-Rmchp-N HUMAN RESOURCE OFFICER 350.1.13.10 ity of p/High [facility] 4.2.7.2.686 Henry as MATERNAL [phone] Med ical & CHILD [address] [place] [address] 2020-06-05 2020-06-05 Orders Doctor LIA 1.2.840.114 [id number] Univers 00:00:00 00:00:00 Only Unassigned, [place] 350.1.13.[address] [facility] 4.2.7.2.686 Henry as [id number] [facility] [address] [place] 2020-05-30 2020-05-30 [facility] Radha Mehta [facility] 1.2.840.114 [id number] Univers 19:58:00 21:25:00 Encounter Nikita 350.1.13.10 ity of [place] 4.2.7.2.686 [facility] [id number] [facility] [address] [place] 2020-05-30 2020-05-30 Orders Doctor LIA 1.2.840.114 [id number] Univers 00:00:00 00:00:00 Only Unassigned, [place] 350.1.13.[address] [facility] 4.2.7.2.686 Henry as [id number] [facility] [address] [place] 2020-05-23 2020-05-23 Outpatient TREVOR [facility] [id number] Univers 10:00:00 10:00:00 ARSALAN ity [facility] 2020-05-22 2020-05-22 Routine [facility] 1.2.265.134 [id number] Univers 10:26:59 10:58:34 Lizette C HUMAN RESOURCE OFFICER 350.1.13.10 ity of Visit [facility] 4.2.7.2.686 Henry as MATERNAL [id number] [facility] ical & CHILD [address] [place] [address] 2020-05-22 2020-05-22 [facility] [id number] Univers 09:45:00 09:45:00 LIZETTE hanson [facility] 2020-05-22 2020-05-22 Orders Doctor FITZGERALD 1.2.840.114 [id number] Univers 00:00:00 00:00:00 Only Unassigned, [place] 350.1.13.[address] [place] [facility] 4.2.7.2.686 Henry as [phone] [address] 2020-05-09 2020-05-09 [facility] 1.2.840.114 [id number] Univers 00:00:00 00:00:00 [facility] 350.1.13.10 i ty of [facility] 4.2.7.2.686 [place] RACHEL [phone] [address] 2020-05-08 2020-05-08 Routine [facility] 1.2.920.800 [id number] Univers 08:47:27 10:56:07 Lizette C HUMAN RESOURCE OFFICER 350.1.13.10 ity of Visit [facility] 4.2.7.2.686 Henry as MATERNAL [id number] [facility] ical & CHILD [address] [place] [address] 2020-05-08 2020-05-08 Outpatient Darya GRAHAM [facility] [id number] Univers 09:00:00 09:00:00 DAYDAY archer [facility] 2020-05-08 2020-05-08 [facility] [id number] Univers 09:00:00 09:00:00 LIZETTE hanson [facility] 2020-05-08 2020-05-08 Orders Doctor LIA 1.2.840.114 [id number] Univers 00:00:00 00:00:00 Only Unassigned, [place] 350.1.13.[address] [place] [facility] 4.2.7.2.686 Henry as [phone] [address] 2020-05-04 2020-05-04 Telephone [facility] 1.2.840.114 [id number] Univers 00:00:00 00:00:00 Lizette Sprague HUMAN RESOURCE OFFICER 350.1.13.10 ity of [facility] 4.2.7.2.686 Henry as MATERNAL [phone] [facility] ical & CHILD [address] [place] [address] 2020-05-03 2020-05-03 Personal Insurance Advisor Lab, [facility] 1.2.840. 114 [id number] Univers 07:46:58 08:01:58 Visit Dayday Graham HUMAN RESOURCE OFFICER 350.1.13.10 ity of [facility] 4.2.7.2.686 Henry as MATERNAL [phone] [facility] ical & CHILD [address] [place] [address] 2020-05-03 2020-05-03 Outpatient Darya GRAHAM [facility] [id number] Univers 07:45:00 07:45:00 DAYDAY archer [facility] 2020-04-26 2020-04-26 Telephone [facility] 1.2.840.114 [id number] Univers 00:00:00 00:00:00 Lizette Sprague HUMAN RESOURCE OFFICER 350.1.13.10 ity of REGIONAL 4.2.7.2.686 Henry as MATERNAL [phone] [facility] ical & CHILD [address] [place] [address] 2020-04-25 2020-04-25 Routine Lizette Lugo [facility] 1.2.8 40.114 [id number] Univers 08:55:43 09:34:31 Dayday Graham HUMAN RESOURCE OFFICER 350.1.13.10 ity of Visit [facility] 4.2.7.2.686 Henry as MATERNAL [phone] [facility] ical & CHILD [address] [place] [address] 2020-04-25 2020-04-25 Outpatient Darya GRAHAM [facility] [id number] Univers 09:15:00 09:15:00 DAYDAY gianni of [facility] 2020-04-21 2020-04-21 Telephone Santos [facility] 1.2.840.114 [id number] Univers 00:00:00 00:00:00 Dayday Darren HUMAN RESOURCE OFFICER 350.1.13.10 it y of REGIONAL 4.2.7.2.686 Henry as MATERNAL [id number] [facility] [address] [place] [address] 2020-04-20 2020-04-20 Routine Risk, Eip-Xfrck-Iv/High [facility] 1. 2.840.114 [id number] Univers 10:18:39 10:46:55 Tara Harvey HUMAN RESOURCE OFFICER 350.1.13.10 ity of Visit [facility]IONAL 4.2.7.2.686 Henry as MATERNAL [phone] [facility] & CHILD [address] [place] [address] 2020-04-20 2020-04-20 Outpatient R [facility] [id number] Univers 10:30:00 10:30:00 ity [facility] 2020-04-06 2020-04-06 Outpatient R [facility] [id number] Univers 10:00:00 10:00:00 [facility] 2020-03-28 2020-03-28 Outpatient R AKINARCHIE, [facility] [id number] Univers 11:00:00 11:00:00 LIZETTE archer o f [facility] 2020-03-09 2020-03-09 Personal Insurance Advisor Ultrasound, Dustyjustine [facility] 1.2 .840.114 [id number] Univers 13:52:50 15:07:50 Visit Tamiko Goncalves HUMAN RESOURCE OFFICER 350.1.13.10 ity of REGIONAL 4.2.7.2.686 Henry as MATERNAL [id number] [facility] & CHILD [address] [place] [address] 2020-03-09 2020-03-09 Outpatient P [facility] [id number] Univers 14:00:00 14:[facility] 2020-02-29 2020-02-29 Routine Akinarchie, [facility] 1.2.501.620 [id number] Univers 12:58:27 13:26:41 Lizette Sprague HUMAN RESOURCE OFFICER 350.1.13.10 ity of Visit [facility] 4.2.7.2.686 Henry as MATERNAL [phone] [facility] ical & CHILD [address] [place] [address] 2020-02-29 2020-02-29 Outpatient R PARISH [facility] [id number] Univers 13:00:00 13:00:00 LIZETTE archer o f [facility] 2020-02-29 2020-02-29 Orders Doctor LIA 1.2.840.114 [id number] Univers 00:00:00 00:00:00 Only Unassigned, [place] 350.1.13.[address] [place] [facility] 4.2.7.2.686 Henry as [phone] [address] 2020-02-01 2020-02-01 [facility] 1.2.787.843 [id number] Univers 13:43:05 14:05:32 Dayday Sanchez HUMAN RESOURCE OFFICER 350.1.13.10 i ty of Visit [facility] 4.2.7.2.686 Henry as MATERNAL [phone] [facility] & CHILD [address] [place] [address] 2020-02-01 2020-02-01 Outpatient R SANTOS [facility] [id number] Univers 14:00:00 14:00:00 DAYDAY archer [facility] 2020-01-26 2020-01-26 Personal Insurance Advisor Ultrasound, [facility] 1.2 .840.114 [id number] Univers 13:20:33 13:52:11 Visit Tamiko Goncalves HUMAN RESOURCE OFFICER 350.1.13.10 ity of [facility] 4.2.7.2.686 Henry as MATERNAL [phone] [facility] ical & CHILD 369 [facility] 2020-01-26 2020-01-26 Outpatient P [facility] [id number] Univers 13:30:00 13:30:00 ity [facility] 2020-01-21 2020-01-21 Telephone Santos [facility] 1.2.840.114 [id number] Univers 00:00:00 00:00:00 Dayday Sanchez HUMAN RESOURCE OFFICER 350.1.13.10 it y of [place] [address].2.7.2.686 Henry as MATERNAL [id number] [facility] ical & CHILD 107 [facility] 2020-01-04 2020-01-04 [facility]ine [facility] 1.2.773.842 [id number] Univers 14:10:07 14:25:07 Dayday Darren HUMAN RESOURCE OFFICER 350.1.13.10 i ty of Visit [facility] 4.2.7.2.686 Henry as MATERNAL [phone] [facility] ical & CHILD [address] [place] [address] 2020-01-04 2020-01-04 [facility] [id number] Univers 14:15:00 14:15:00 DAYDAY archer [facility] 2019-12-03 2019-12-03 Initial [facility] 1.2.840.114 [id number] Univers 13:57:53 15:53:08 Paul HUMAN RESOURCE OFFICER 350.1.13.10 i ty of Visit [facility] 4.2.7.2.686 Henry as MATERNAL [id number] Med ical & CHILD 111 [facility] 2019-12-03 2019-12-03 Outpatient Darya AREVALO [facility] [id number] Univers 14:00:00 14:00:00 PAUL archer [facility] 2019-11-28 2019-11-28 Orders Doctor LIA 1.2.840.114 [id number] Univers 00:00:00 00:00:00 Only Unassigned, [place] 350.1.13.[address] [place] [address].2.7.2.686 Henry as [id number] [address] 2019-06-05 2019-06-07 Inpatient [facility] FERS [id number] [facility] 12:52:00 06:25:28 94 [facility] 2019-05-12 2019-05-12 Outpatient theresa MM[facility] 5510 [place] 09:15:00 09:15:00 0325 [facility] 2019-03-12 2019-03-12 Office [facility] 1.2.748.595 [id number] 14:09:29 15:05:26 Visit Lizette Sprague HUMAN RESOURCE OFFICER 350.1.13.10 REGIONAL 4.2.7.2.686 MATERNAL [phone] & CHILD [address] [place] [address] 2019-03-12 2019-03-12 Office [facility] 1.2.534.931 [id number] Univers 14:09:29 15:05:26 Visit Lizette C HUMAN RESOURCE OFFICER 350.1.13.10 ity of [facility] 4.2.7.2.686 Henry as MATERNAL [phone] Med ical & CHILD [address] [place] [address] 2019-03-12 2019-03-12 Orders Doctor LIA 1.2.840.114 [id number] Univers 00:00:00 00:00:00 Only Unassigned, [place] 350.1.13.[address] [facility] 4.2.7.2.686 Henry as [phone] [facility] [address] [place] 2019-03-11 2019-03-11 Telephone [facility] 1.2.840.114 [id number] Univers 00:00:00 00:00:00 Lizette C HUMAN RESOURCE OFFICER 350.1.13.10 ity of [facility] 4.2.7.2.686 Henry as MATERNAL [id number] [facility] ical & CHILD [address] [place] [address] 2018-11-02 2018-11-02 Routine [facility] 1.2.920.378 [id number] Univers 09:19:45 10:10:06 Lizette C HUMAN RESOURCE OFFICER 350.1.13.10 ity of Visit [facility] 4.2.7.2.686 Henry as MATERNAL [phone] [facility] ical & CHILD [address] [place] [address] 2018-10-11 2018-10-13 Hospital LIA Blandon 1.2.840.114 [id number] Univers 09:10:00 13:48:00 Encounter Altagracia LOZADA 350.1.13.10 ity of HOSPITAL 4.2.7.2.686 Henry as [id number] [facility] [address] [place] 2018-10-11 2018-10-11 Orders Doctor LIA 1.2.840.114 [id number] Univers 00:00:00 00:00:00 Only Unassigned, [place] 350.1.13.[address] [facility] 4.2.7.2.686 Henry as [id number] [facility] [address] [place] 2018-10-07 2018-10-07 Routine Lizette Lugo [facility] 1.2.8 40.114 [id number] Univers 10:46:28 11:49:44 Dayday Graham HUMAN RESOURCE OFFICER 350.1.13.10 ity of Visit [facility] 4.2.7.2.686 Henry as MATERNAL [id number] [facility] ical & CHILD [address] [place] [address] 2018-09-30 2018-09-30 Routine Santos [facility] 1.2.066.562 [id number] Univers 10:52:31 11:16:08 Dayday Sanchez HUMAN RESOURCE OFFICER 350.1.13.10 i ty of Visit [facility] 4.2.7.2.686 Henry as MATERNAL [id number] [facility] & [address] 2018-09-28 2018-09-28 Hospital Kortney FITZGERALD 1.2.840.114 [id number] Univers 11:23:00 13:27:00 Encounter Carline LOZADA 350.1.13.10 ity of s, [place]2.7.2.[place] [id number] [facility] [address] [place] 2018-09-28 2018-09-28 Nurse LIA Sutton 1.2.840.114 [id number] Univers 00:00:00 00:00:00 Triage Virginie LOZADA 350.1.13.10 i ty of [facility] 4.2.7.2.686 Henry as [id number] [facility] [address] [place] 2018-09-28 2018-09-28 Patient [facility], [facility] 1.2.340.464 [id number] Univers 00:00:00 00:00:00 Secure Msg Lizette C HUMAN RESOURCE OFFICER 350.1.13.10 ity of [facility] 4.2.7.2.686 Henry as MATERNAL [id number] [facility] & CHILD [address] [place] [address] 2018-09-24 2018-09-24 Telephone Parish, [facility] 1.2.840.114 [id number] Univers 00:00:00 00:00:00 Lizette C HUMAN RESOURCE OFFICER 350.1.13.10 ity of [facility] 4.2.7.2.686 Henry as MATERNAL [phone] [facility] [address] [place] [address] 2018-09-24 2018-09-24 Patient COREY Lugo 1.2.039.963 [id number] Univers 00:00:00 00:00:00 Secure Msg Lizette Sprague HUMAN RESOURCE OFFICER 350.1.13.10 ity of [facility] 4.2.7.2.686 Henry as MATERNAL [id number] [facility] & CHILD [address] [place] [address] 2018-09-23 2018-09-23 Routine Parish, [facility] 1.2.615.993 [id number] Univers 08:57:20 10:50:36 Lizette C 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 [place] [facility] 4.2.7.2.686 Henry as [phone] [address] Results Test Description Test Time Test Comments Results Result [facility] e Comments LAB ONLY COVID COVID [place] [address] InterpretationInte [facility] 03:38:37 rpretation/Recomme [place] ndations: Molecular NAAT Tests [...] COVID-19 testing the patient has had at [facility], including molecular NAAT testing (more commonly known as PCR testing and Rapid ID Now testing) and antibody testing. It does not take into account any testing that a patient has had outside of the [facility] medical record. [facility] LABORATORY SERVICESCOVID [id number] Rapid ID NOW (no units) ? ? Date ? Value ? 07/14/2020 ? Not Detected ? ? ? 07/08/2020 ? Not Detected ? ? ? 06/13/2020 ? Not Detected ? CoV-2 IgG (no units) ? ? Date ? Value ? 07/03/2020 ? Positive (A) ? ? ? 12/03/2019 ? Negative ? ? ? [facility]OR[facility] CBC with Differential 2020-07-16 10:28:11 [...] L [Au tomated message] The system which [employer] nerated this result transmit kishor reference range: [...] g/dL 31.6-35.1 L RDW-SD (test code = 09025-0) 48.5 fL 39.0-49.9 RDW-CV (test code = 788-0) 14.8 % 12.0-15.5 PLT (test code = 777-3) See_Comment [Au tomated message] The system which [employer] nerated this result transmit kishor reference range: 166 - 35 8 10*3/?L. The reference range was not used to interpret th is result as normal/abnormal . MPV (test code = 11388-9) 9.5 fL 9.5-12.9 NRBC/100 WBC (test code = See_Comment [ Automated message] The [id number]) system which [employer] nerated this result transmit kishor reference range: 0.0 - 10 .0 /100 WBCs. The reference r kb was not used to interpr et this result as normal/abnor mal. NRBC x10^3 (test code = <0.01 See_Comment [Au tomated message] The [id number]) system which [employer] nerated this result transmit kishor reference range: 10*3/?L. The reference range was not u sed to interpret this result as normal/abnormal . GRAN MAT (NEUT) % (test code 77.0 % = 770-8) IMM GRAN % (test code = 0.80 % [id number]) LYMPH % (test code = 736-9) 12.4 % MONO % (test code = 5905-5) 8.7 % EOS % (test code = 713-8) 0.9 % BASO % (test code = 706-2) 0.2 % GRAN MAT x10^3(ANC) (test 11.03 10*3/uL 1.88-7.09 H code = 3875952634) IMM GRAN x10^3 (test code = 0.12 10*3/uL 0.00-0.06 H 0334974312) LYMPH x10^3 (test code = 1.78 10*3/uL 1.32-3.29 731-0) MONO x10^3 (test code = 1.25 10*3/uL 0.33-0.92 H 742-7) EOS x10^3 (test code = 0.13 10*3/uL 0.03-0.39 711-2) BASO x10^3 (test code = 0.03 10*3/uL 0.01-0.07 704-7) Lab Interpretation (test Abnormal code = 35065-8) [facility] with Nztrjqouxwfi8465-62-53 10:28:11 Test Item Value Reference Range Interpretation [...] RDW-SD (test code = 48.5 fL 39.0-49.9 33534-9) RDW-CV (test code = 14.8 % 12.0-15.5 788-0) PLT (test code = See_Comment [Automated 777-3) message] The system which generated this result transmit kishor reference range : 166 - 358 10*3/ ?L. The reference range was not u sed to interpret th is result as normal/abnormal . MPV (test code = 9.5 fL 9.5-12.9 43324-9) NRBC/100 WBC (test See_Comment [Automat ed code = [id number]) message] The system which generated this result transmit kishor reference range : 0.0 - 10.0 /100 WBCs. The reference range was not used to interpret this result as normal/abnormal . NRBC x10^3 (test code <0.01 See_Comment [Auto mated = [id number]) message] The system which generated this result transmit kishor reference range : 10*3/?L. The reference range was not used to interpret this result as normal/abnormal . GRAN MAT (NEUT) % 77.0 % (test code = 770-8) IMM GRAN % (test code 0.80 % = [id number]) LYMPH % (test code = 12.4 % 736-9) MONO % (test code = 8.7 % 5905-5) EOS % (test code = 0.9 % 713-8) BASO % (test code = 0.2 % 706-2) GRAN MAT x10^3(ANC) 11.03 10*3/uL 1.88-7.09 H (test code = [id number]) IMM GRAN x10^3 (test 0.12 10*3/uL 0.00-0.06 H code = [id number]) LYMPH x10^3 (test code 1.78 10*3/uL 1.32-3.29 = 731-0) MONO x10^3 (test code 1.25 10*3/uL 0.33-0.92 H = 742-7) EOS x10^3 (test code = 0.13 10*3/uL 0.03-0.39 711-2) BASO x10^3 (test code 0.03 10*3/uL 0.01-0.07 = 704-7) Lab Interpretation Abnormal (test code = 60148-6) [facility] (D) IMMUNE [id number] 01:57:12 Test Item Value Reference Range Interpretation Comments RHIG CANDIDATE? No- see comment Patient i s not a (test code = candidate for R hIg- 5055) Patient is Rh Positive.Perfor med at [facility] Laboratory Services - [facility] Blood [address] Free: [phone] A No. [id number] [facility] () IMMUNE [id number] 01:57:12 Test Item Value Reference Range Interpretation Comments RHIG CANDIDATE? No- see comment Patient i s not a (test code = candidate for R hIg- 5055) Patient is Rh Positive.Perfor med at [facility] Laboratory Services - [facility] Blood [address] [place] [address] Free: [phone] A No. [id number] [facility] ONLY - SYPHILIS [id number] 16:55:55 Test Item Value Reference Range Interpretation Comments Syphilis IgG/IgM (test Non-reactive Non-reactive code = 97306-7) KARLA (test code = KARLA) Non-reactive - No serologic evidence of T. pallidum infection. Cannot exclude incubating or early syphilis. Submit a second specimen in 2-4 weeks if syphilis is clinically suspected. Equivocal - Further testing to follow. Reactive - Further testing to follow. Lab Interpretation (test Normal code = 38182-4) [facility] ONLY - SYPHILIS [id number] 16:55:55 Test Item Value Reference Range Interpretation Comments Syphilis IgG/IgM (test Non-reactive Non-reactive code = 21979-5) KARLA (test code = KARLA) Non-reactive - No serologic evidence of T. pallidum infection. Cannot exclude incubating or early syphilis. Submit a second specimen in 2-4 weeks if syphilis is clinically suspected. Equivocal - Further testing to follow. Reactive - Further testing to follow. Lab Interpretation (test Normal code = 06531-0) [facility] CORD [id number] 14:33:45 Test Item Value Reference Range Interpretation Comments VENOUS BASE EXCESS, mEq/L CORD (test code = 2218247207) VENOUS PH, CORD (test 7.25-7.45 code = 9160376586) VENOUS PC02, CORD See_Comment [Automate d message] The (test code = system which ge nerated 6111116995) this result tra nsmitted reference range : 27 - 49 mmHg. The refer ence range was not used to interpret this result as normal/abnormal . VENOUS PO2, CORD (test See_Comment [Aut omated message] The code = 5794425764) system [facility] generated this result tra nsmitted reference range : 17 - 41 mmHg. The refer ence range was not used to interpret this result as normal/abnormal . VENOUS BICARBONATE, See_Comment [Automa kishor message] The CORD (test code = system [facility] generated 5730627656) this result tra nsmitted reference range : 12 - 29 mEq/L. The refe rence range was not used to interpret this result as normal/abnormal . [facility] CORD [id number] 14:33:45 Test Item Value Reference Range Interpretation Comments VENOUS BASE EXCESS, mEq/L CORD (test code = 3958849675) VENOUS PH, CORD (test 7.25-7.45 code = 0533514862) VENOUS PC02, CORD See_Comment [Automate d message] The (test code = system which ge nerated 7711276902) this result tra nsmitted reference range : 27 - 49 mmHg. The refer ence range was not used to interpret this result as normal/abnormal . VENOUS PO2, CORD (test See_Comment [Aut omated message] The code = 0031909677) system [facility] generated this result tra nsmitted reference range : 17 - 41 mmHg. The refer ence range was not used to interpret this result as normal/abnormal . VENOUS BICARBONATE, See_Comment [Automa kishor message] The CORD (test code = system [facility] generated 4992732096) this result tra nsmitted reference range : 12 - 29 mEq/L. The refe rence range was not used to interpret this result as normal/abnormal . [facility] [id number] 14:30:44 Test Item Value Reference Range Interpretation Comments BASE EXCESS, CORD mEq/L (test code = 4333095352) AC PH, CORD (BEAKER) 7.18-7.38 (test code = 3264427475) PC02, CORD (test code See_Comment [Auto mated message] The = ) system which g enerated this result transmit kishor reference range : 32 - 66 mmHg. The refer ence range was not used to interpret this result as normal/abnormal . PO2, CORD (test code See_Comment [Autom ated message] The = 3280279174) system which g enerated this result transmit kishor reference range : 10 - 30 mmHg. The refer ence range was not used to interpret this result as normal/abnormal . BICARBONATE, CORD See_Comment [Automate d message] The (test code = system which ge nerated this 6461975633) result transmit kishor reference range : 17 - 27 mEq/L. The refe rence range was not used to interpret this result as normal/abnormal . [facility] [id number] 14:30:44 Test Item Value Reference Range Interpretation Comments BASE EXCESS, CORD mEq/L (test code = 9411212909) AC PH, CORD (BEAKER) 7.18-7.38 (test code = 9625991488) PC02, CORD (test code See_Comment [Auto mated message] The = 9210091728) system which g enerated this result transmit kishor reference range : 32 - 66 mmHg. The refer ence range was not used to interpret this result as normal/abnormal . PO2, CORD (test code See_Comment [Autom ated message] The = 8181875272) system which g enerated this result transmit kishor reference range : 10 - 30 mmHg. The refer ence range was not used to interpret this result as normal/abnormal . BICARBONATE, CORD See_Comment [Automate d message] The (test code = system which ge nerated this 5115915729) result transmit kishor reference range : 17 - 27 mEq/L. The refe rence range was not used to interpret this result as normal/abnormal . [facility] GLUCOSE (AUTOMATED)2020-07-15 11:59:25 Test Item Value Reference Range Interpretation Comments POCT GLU (test code = 9016570700) 122 mg/dL 70-110 H Lab Interpretation (test code = Abnormal 09666-8) [facility] GLUCOSE (AUTOMATED)2020-07-15 11:59:25 Test Item Value Reference Range Interpretation Comments POCT GLU (test code = 8061889467) 122 mg/dL 70-110 H Lab Interpretation (test code = Abnormal 58890-7) [facility] GLUCOSE (AUTOMATED)2020-07-15 08:15:23 Test Item Value Reference Range Interpretation Comments POCT GLU (test code = 7088740069) 122 mg/dL 70-110 H Lab Interpretation (test code = Abnormal 67181-1) [facility] GLUCOSE (AUTOMATED)2020-07-15 08:15:23 Test Item Value Reference Range Interpretation Comments POCT GLU (test code = 3066358118) 122 mg/dL 70-110 H Lab Interpretation (test code = Abnormal 68879-8) [facility] 06:40:28 Test Item Value Reference Range Interpretation Comments APPEARANCE (test code = Clear Clear 1331926731) COLOR (test code = Yellow Yellow 0029579750) PH (test code = 4.8-8.0 9570321019) SP GRAVITY (test code = 1.003-1.030 9063305255) GLU U QUAL (test code = Normal Normal 4546068612) BLOOD (test code = Negative Negative 6864981998) KETONES (test code = 5 mg/dL Negative A 4127635373) PROTEIN (test code = Negative Negative 2887-8) UROBILIN (test code = Normal Normal 1636701653) BILIRUBIN (test code = Negative Negative 1119376124) NITRITE (test code = Negative Negative 5092031273) LEUK RAJ (test code = Negative Negative 2368756823) RBC/HPF (test code = See_Comment H [Autom ated message] 1162371939) The system [employer] generated this result transmitted ref erence range: 0 - 3 HP F. The reference range was not used to int erpret this result as normal/abnormal . WBC/HPF (test code = See_Comment [Autom ated message] 0822282333) The system [employer] generated this result transmitted ref erence range: 0 - 5 HP F. The reference range was not used to int erpret this result as normal/abnormal . BACTERIA (test code = Few Negative A 3487737589) MUCOUS (test code = Moderate Negative LPF A 9505185115) SQ EPITH (test code = See_Comment H [Auto mated message] 0854361517) The system [employer] generated this result transmitted ref erence range: <=2 HPF. The reference range was not used to int erpret this result as normal/abnormal . Lab Interpretation (test Abnormal code = 01050-2) [facility] 06:40:28 Test Item Value Reference Range Interpretation Comments APPEARANCE (test code = Clear Clear 4301552754) COLOR (test code = Yellow Yellow 7695261306) PH (test code = 4.8-8.0 4438472863) SP GRAVITY (test code = 1.003-1.030 5284185343) GLU U QUAL (test code = Normal Normal 7514468801) BLOOD (test code = Negative Negative 6284548004) KETONES (test code = 5 mg/dL Negative A 5853092601) PROTEIN (test code = Negative Negative 2887-8) UROBILIN (test code = Normal Normal 4204756346) BILIRUBIN (test code = Negative Negative 2092239496) NITRITE (test code = Negative Negative 3199884446) LEUK RAJ (test code = Negative Negative 6888362702) RBC/HPF (test code = See_Comment H [Autom ated message] 7373426651) The system [employer] generated this result transmitted ref erence range: 0 - 3 HP F. The reference range was not used to int erpret this result as normal/abnormal . WBC/HPF (test code = See_Comment [Autom ated message] 2893246438) The system [employer] generated this result transmitted ref erence range: 0 - 5 HP F. The reference range was not used to int erpret this result as normal/abnormal . BACTERIA (test code = Few Negative A 6628844469) MUCOUS (test code = Moderate Negative LPF A 3928414245) SQ EPITH (test code = See_Comment H [Auto mated message] 2158848729) The system [employer] generated this result transmitted ref erence range: <=2 HPF. The reference range was not used to int erpret this result as normal/abnormal . Lab Interpretation (test Abnormal code = 58813-7) [facility] CRE[facility] Ratio Urine [id number] 06:39:32 Test Item Value Reference Range Interpretation Comments T. PROT U (test code = 2888-6) 13 mg/dL CREAT U (test code = 4742912374) 156.2 mg/dL Protein/Creatinine Ratio Urine 0.0-2.0 (test code = 2868288549) [facility] Ratio Urine [id number] 06:39:32 Test Item Value Reference Range Interpretation Comments T. PROT U (test code = 2888-6) 13 mg/dL CREAT U (test code = 6275251833) 156.2 mg/dL Protein/Creatinine Ratio Urine 0.0-2.0 (test code = 5106487140) [facility] AG-AB WITH [id number] 06:12:14 Test Item Value Reference Range Interpretation Comments HIV Negative Negative Semi-quantitative (test code = 07409-5) KARLA (test code = Non-reactive for HIV-1 KARLA) antigen and HIV-1/HIV-2 antibodies. ?No laboratory evidence of HIV infection. ?Repeat in 2-4 weeks if acute HIV infection is suspected. [facility]-AB WITH [id number] 06:12:14 Test Item Value Reference Range Interpretation Comments HIV Negative Negative Semi-quantitative (test code = 10223-5) KARLA (test code = Non-reactive for HIV-1 KARLA) antigen and HIV-1/HIV-2 antibodies. ?No laboratory evidence of HIV infection. ?Repeat in 2-4 weeks if acute HIV infection is suspected. [facility]AT[facility]IS B SURFACE [id number] 06:03:09 Test Item Value Reference Range Interpretation Comments HBsAg Semi-Quantitative (test code = Negative Negative 5195-3) [facility]FACE [id number] 06:03:09 Test Item Value Reference Range Interpretation Comments HBsAg Semi-Quantitative (test code = Negative Negative 5195-3) [facility] Acid [id number] 05:31:11 Test Item Value Reference Range Interpretation Comments URIC ACID (test code = 9293756849) 4.7 mg/dL 2.9-6.0 Lab Interpretation (test code = Normal 57859-6) [facility] [id number] 05:31:11 Test Item Value Reference Range Interpretation Comments CREATININE (test code = 0.49 mg/dL 0.50-1.04 L 8141843357) eGFR (test code = mL/min/1.73m2 1323910650) KARLA (test code = KARLA) Association of [...] tests). Lab Interpretation Abnormal (test code = 95860-5) [facility]2020-07-15 05:31:11 Test Item Value Reference Range Interpretation Comments AST(SGOT) (test code = 8258630807) 19 U/L 13-40 Lab Interpretation (test code = Normal 69275-9) [facility] [id number] 05:31:11 Test Item Value Reference Range Interpretation Comments URIC ACID (test code = 2170851368) 4.7 mg/dL 2.9-6.0 Lab Interpretation (test code = Normal 31009-2) [facility] Imlvkximtz3986-23-05 05:31:11 Test Item Value Reference Range Interpretation Comments CREATININE (test code = 0.49 mg/dL 0.50-1.04 L 0846658010) eGFR (test code = mL/min/1.73m2 8357157924) KARLA (test code = KARLA) Association of [...] tests). Lab Interpretation Abnormal (test code = 80354-9) [facility] (Asparate Amino Transfer)2020-07-15 05:31:11 Test Item Value Reference Range Interpretation Comments AST(SGOT) (test code = 0325865187) 19 U/L 13-40 Lab Interpretation (test code = Normal 03375-5) [facility]landAlanine Amino Transferase (SGPT)2020-07-15 05:31:10 Test Item Value Reference Range Interpretation Comments ALTv (test code = 1742-6) 12 U/L 5-35 Lab Interpretation (test code = Normal 83699-0) [facility] Amin[facility] Transferase (SGPT)2020-07-15 05:31:10 Test Item Value Reference Range Interpretation Comments ALTv (test code = 1742-6) 12 U/L 5-35 Lab Interpretation (test code = Normal 67940-6) [facility]landLactate Okbyvmsbqpoyh4379-29-05 05:30:50 Test Item Value Reference Range Interpretation Comments LDH (test code = 7886366287) 459 U/L 300-600 Lab Interpretation (test code = Normal 11820-8) [facility] Xiabqulxzhoab4002-13-29 05:30:50 Test Item Value Reference Range Interpretation Comments LDH (test code = 4570206108) 459 U/L 300-600 Lab Interpretation (test code = Normal 38653-4) [facility] and Screen - ONCE [id number] 05:21:09 Test Item Value Reference Range Interpretation Comments ABO & RH (test code B POSITIVE Performe d at [facility] = 20) Laboratory [facility] Blood Bank[address] [place] [address]Nicy Free: [phone] A No. [id number] IAT (test code = Negative Performed a t [facility] 1185) Laboratory [facility] Blood Bank[address] [place] [address] s [address]Ocgs Free: [phone] A No. [id number] [facility] and Screen - ONCE [id number] 05:21:09 Test Item Value Reference Range Interpretation Comments ABO & RH (test code B POSITIVE Performe d at [facility] = 20) Laboratory [facility] Blood [address] [place] [address] s [address]Bzll Free: [phone] A No. [id number] IAT (test code = Negative Performed a t [facility] 1185) Laboratory [facility] Blood [address]Eloina avila [address]Duya Free: [phone] A No. [id number] [facility] with Prabupxlfpie5786-34-37 05:01:18 Test Item Value Reference Range Interpretation [...] RDW-SD (test code = 48.0 fL 39.0-49.9 96518-2) RDW-CV (test code = 14.8 % 12.0-15.5 788-0) PLT (test code = See_Comment [Automated 777-3) message] The system which generated this result transmit kishor reference range : 166 - 358 10*3/ ?L. The reference range was not u sed to interpret th is result as normal/abnormal . MPV (test code = 9.6 fL 9.5-12.9 40244-0) NRBC/100 WBC (test See_Comment [Automat ed code = 1919033319) message] The system which generated this result transmit kishor reference range : 0.0 - 10.0 /100 WBCs. The reference range was not used to interpret this result as normal/abnormal . NRBC x10^3 (test code <0.01 See_Comment [Auto mated = 0983236742) message] The system which generated this result transmit kishor reference range : 10*3/?L. The reference range was not used to interpret this result as normal/abnormal . GRAN MAT (NEUT) % 74.5 % (test code = 770-8) IMM GRAN % (test code 1.60 % = 8772804854) LYMPH % (test code = 15.7 % 736-9) MONO % (test code = 7.1 % 5905-5) EOS % (test code = 0.9 % 713-8) BASO % (test code = 0.2 % 706-2) GRAN MAT x10^3(ANC) 11.97 10*3/uL 1.88-7.09 H (test code = 1149231093) IMM GRAN x10^3 (test 0.25 10*3/uL 0.00-0.06 H code = 1772583350) LYMPH x10^3 (test code 2.52 10*3/uL 1.32-3.29 = 731-0) MONO x10^3 (test code 1.14 10*3/uL 0.33-0.92 H = 742-7) EOS x10^3 (test code = 0.14 10*3/uL 0.03-0.39 711-2) BASO x10^3 (test code 0.04 10*3/uL 0.01-0.07 = 704-7) Lab Interpretation Abnormal (test code = 77573-9) [facility] with Pedeyulypzyr5536-49-55 05:01:18 Test Item Value Reference Range Interpretation Comments WBC (test code = See_Comment H [Automated 9490-2) message] The system which generated this result transmit kishor reference range : 4.30 - 11.10 10*3/?L. The reference range was not used to interpret this result as normal/abnormal . RBC (test code = See_Comment L [Automated 069-8) message] The system which generated this result [...] RDW-SD (test code = 48.0 fL 39.0-49.9 64346-6) RDW-CV (test code = 14.8 % 12.0-15.5 788-0) PLT (test code = See_Comment [Automated 777-3) message] The system which generated this result transmit kishor reference range : 166 - 358 10*3/ ?L. The reference range was not u sed to interpret th is result as normal/abnormal . MPV (test code = 9.6 fL 9.5-12.9 32342-1) NRBC/100 WBC (test See_Comment [Automat ed code = 6322883040) message] The system which generated this result transmit kishor reference range : 0.0 - 10.0 /100 WBCs. The reference range was not used to interpret this result as normal/abnormal . NRBC x10^3 (test code <0.01 See_Comment [Auto mated = 4277037233) message] The system which generated this result transmit kishor reference range : 10*3/?L. The reference range was not used to interpret this result as normal/abnormal . GRAN MAT (NEUT) % 74.5 % (test code = 770-8) IMM GRAN % (test code 1.60 % = 5625428953) LYMPH % (test code = 15.7 % 736-9) MONO % (test code = 7.1 % 5905-5) EOS % (test code = 0.9 % 713-8) BASO % (test code = 0.2 % 706-2) GRAN MAT x10^3(ANC) 11.97 10*3/uL 1.88-7.09 H (test code = 1854610567) IMM GRAN x10^3 (test 0.25 10*3/uL 0.00-0.06 H code = 4348064362) LYMPH x10^3 (test code 2.52 10*3/uL 1.32-3.29 = 731-0) MONO x10^3 (test code 1.14 10*3/uL 0.33-0.92 H = 742-7) EOS x10^3 (test code = 0.14 10*3/uL 0.03-0.39 711-2) BASO x10^3 (test code 0.04 10*3/uL 0.01-0.07 = 704-7) Lab Interpretation Abnormal (test code = 31466-4) [facility] GLUCOSE (AUTOMATED)2020-07-15 04:49:15 Test Item Value Reference Range Interpretation Comments POCT GLU (test code = 0204854785) 137 mg/dL 70-110 H Lab Interpretation (test code = Abnormal 18823-0) [facility] GLUCOSE (AUTOMATED)2020-07-15 04:49:15 Test Item Value Reference Range Interpretation Comments POCT GLU (test code = 3332568647) 137 mg/dL 70-110 H Lab Interpretation (test code = Abnormal 15008-6) [facility]2020-07-15 03:33:51 Test Item Value Reference Range Interpretation Comments SARS-CoV-2 Rapid ID NOW Not Detected Not Detected (test code = 95130-0) KARLA (test code = KARLA) ID NOW COVID-19 Assay is an isothermal nucleic acid amplification test intended for the qualitative detection of nucleic acid from SARS-CoV-2 viral RNA in nasopharyngeal (BRUSH AND BROOM CLIPPER) specimens. It is used under Emergency Use [...] indicated. Lab Interpretation Normal (test code = 24381-3) [facility]2020-07-15 03:33:51 Test Item Value Reference Range Interpretation Comments SARS-CoV-2 Rapid ID NOW Not Detected Not Detected (test code = 50121-2) KARLA (test code = KARLA) ID NOW COVID-19 Assay is an isothermal nucleic acid amplification test intended for the qualitative detection of nucleic acid from SARS-CoV-2 viral RNA in nasopharyngeal (BRUSH AND BROOM CLIPPER) specimens. It is used under Emergency Use [...] indicated. Lab Interpretation Normal (test code = 24980-8) [facility] NON-STRESS [id number] 21:45:26NST: cat 1, reactive/reassuring, no ctx, +accels, neg decls, moderate variability [facility] URINALYSIS W SPECIFIC [id number] 19:59:00 Test Item Value Reference Range Interpretation [...] POCT U APPEAR (test code = 3267) [facility] NON-STRESS [id number] 03:09:14NST reactive and reassuring, no [facility]CIFIC [id number] 19:43:00 Test Item Value Reference Range Interpretation [...] POCT U APPEAR (test code = 3267) [facility] NON-STRESS [id number] 20:40:19NST: cat 1, reactive/reassuring, no ctx, +accels, neg decls, moderate variability [facility] URINALYSIS W SPECIFIC [id number] 19:47:00 Test Item Value Reference Range Interpretation [...] = 3267) [facility] [id number] 13:06:59 Test Item Value Reference Range Interpretation Comments URINE CULTURE (test 10,000 - 100,000 CFU/mL code = 630-4) mixed aerobic organisms - suggests endogenous microbial contamination [facility] NON-STRESS [id number] 01:18:29NST reactive and reassuring, no ctx [facility]UnPl[facility] W SPECIFIC [id number] 18:38:00 Test Item Value Reference Range Interpretation [...] POCT U APPEAR (test code = 3267) [facility] NON-STRESS [id number] 20:01:23NST: cat 1, reactive/reassuring, no ctx, +accels, neg decls, moderate variability [facility] NON-STRESS [id number] 20:01:23NST: cat 1, reactive/reassuring, no ctx, +accels, neg decls, moderate variability [facility] NON-STRESS [id number] 20:01:23NST: cat 1, reactive/reassuring, no ctx, +accels, neg decls, moderate variability [facility] URINALYSIS W SPECIFIC [id number] 19:07:00 Test Item Value Reference Range Interpretation [...] POCT U APPEAR (test code = 3267) [facility] URINALYSIS W SPECIFIC [id number] 19:07:00 Test Item Value Reference Range Interpretation [...] POCT U APPEAR (test code = 3267) [facility] URINALYSIS W SPECIFIC [id number] 19:07:00 Test Item Value Reference Range Interpretation [...] POCT U APPEAR (test code = 3267) [facility] [id number] 14:10:00 Test Item Value Reference Range Interpretation [...] POCT U APPEAR (test code = 3267) [facility] (ID NOW RAPID TESTING)2020-06-14 00:02:00 Test Item Value Reference Range Interpretation Comments SARS-CoV-2 Rapid ID NOW Not Detected Not Detected (test code = 26820-0) KARLA (test code = KARLA) ID NOW COVID-19 Assay is an isothermal nucleic acid amplification test intended for the qualitative detection of nucleic acid from SARS-CoV-2 viral RNA in nasopharyngeal (BRUSH AND BROOM CLIPPER) specimens. It is used under Emergency Use [...] indicated. Lab Interpretation Normal (test code = 69310-5) [facility] GLUCOSE (AUTOMATED)2020-06-13 23:45:50 Test Item Value Reference Range Interpretation Comments POCT GLU (test code = 7870607763) 113 mg/dL 70-110 H Lab Interpretation (test code = Abnormal 57309-2) [facility] URINALYSIS W SPECIFIC [id number] 15:41:00 Test Item Value Reference Range Interpretation [...] POCT U APPEAR (test code = 3267) [facility] URINALYSIS W SPECIFIC [id number] 14:47:00 Test Item Value Reference Range Interpretation [...] POCT U APPEAR (test code = 3267) [facility] URINALYSIS W SPECIFIC [id number] 14:47:00 Test Item Value Reference Range Interpretation [...] POCT U APPEAR (test code = 3267) [facility] URINALYSIS W SPECIFIC [id number] 14:47:00 Test Item Value Reference Range Interpretation [...] POCT U APPEAR (test code = 3267) [facility] URINALYSIS W SPECIFIC [id number] 16:26:00 Test Item Value Reference Range Interpretation [...] POCT U APPEAR (test code = 3267) [facility] URINALYSIS W SPECIFIC [id number] 19:14:00 Test Item Value Reference Range Interpretation [...] POCT U APPEAR (test code = 3267) [facility] URINALYSIS W SPECIFIC [id number] 20:26:00 Test Item Value Reference Range Interpretation [...] POCT U APPEAR (test code = 3267) [facility] [place]URINE [id number] 12:48:00 Test Item Value Reference Range Interpretation Comments URINE CULTURE (test 10,000 - 100,000 CFU/mL code = 630-4) mixed aerobic organisms - suggests endogenous microbial contamination [facility]landHIV 1/2 AG-AB WITH [id number] 04:51:00 Test Item Value Reference Range Interpretation Comments HIV Negative Negative Semi-quantitative (test code = 67260-7) KARLA (test code = Non-reactive for HIV-1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
--- NOTE | 2022-04-04 13:12 | RAD REPORT ---
EXAM DESCRIPTION: Ej Single View04/04/2022 12:55 pm CLINICAL HISTORY: Chest pain COMPARISON: 2016 FINDINGS: The lungs appear clear of acute infiltrate. The heart is normal size IMPRESSION: No acute abnormalities displayed
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
--- NOTE | 2022-04-04 13:38 | EDPHYS ---
Physician Documentation [facility] Name: Gail Juárez Age: 26 yrs Sex: Female : 1995 Arrival Date: 04/04/2022 Time: 12:06 Bed 16 Private MD: ED Physician Paramjit Romano HPI: 04/04 13:32 This 26 yrs old Female presents to ER via Ambulatory with complaints of Chest Pain. sp3 13:32 26-year-old female with no significant past medical history presents to the ED with sp3 chief complaint of chest pain substernal that started this morning from the epigastric region up into her throat. Symptoms are now resolved. Patient states that she had not had anything to eat today. She is status postcholecystectomy. No prior history of any cardiac problems, GERD, prior pneumonia, prior pulmonary embolism more hypercoagulable pathology, or prior chest pain. On review of systems, she denies headache, neck pain, back pain, shortness of breath, travel history, known sick contacts, prolonged immobilization, rash, melena, bleeding, nausea, vomiting, diarrhea, or any other signs or symptoms.. QA ARCHITECT: 13:04 LMP 03/27/2022 jl7 Historical: - Allergies: 13:04 No Known Allergies; jl7 - Home Meds: 13:04 None [Active]; jl7 - PMHx: 13:04 pre-diabetic; jl7 - PSHx: 13:04 Cholecystectomy; Tonsillectomy; tubal ligation; wisdom tooth removal; jl7 - Immunization history:: Client reports receiving the 2nd dose of the Covid vaccine. - Social history:: Smoking status: Patient denies any tobacco usage or history of. ROS: 13:34 Constitutional: Negative for fever, chills, and weight loss, Eyes: Negative for injury, sp3 pain, redness, and discharge, ENT: Negative for injury, pain, and discharge, Neck: Negative for injury, pain, and swelling, Respiratory: Negative for shortness of breath, cough, wheezing, and pleuritic chest pain, Back: Negative for injury and pain, MS/Extremity: Negative for injury and deformity, Skin: Negative for injury, rash, and discoloration, Neuro: Negative for headache, weakness, numbness, tingling, and seizure, Psych: Negative for depression, anxiety, suicide ideation, homicidal ideation, and hallucinations, Allergy/Immunology: Negative for hives, rash, and allergies, Endocrine: Negative for neck swelling, polydipsia, polyuria, polyphagia, and marked weight changes, Hematologic/Lymphatic: Negative for swollen nodes, abnormal bleeding, and unusual bruising. 13:34 All other systems are negative. Exam: 13:35 Constitutional: This is a well developed, well nourished patient who is awake, alert, sp3 and in no acute distress. Head/Face: Normocephalic, atraumatic. Eyes: Pupils equal round and reactive to light, extra-ocular motions intact. Lids and lashes normal. Conjunctiva and sclera are non-icteric and not injected. Cornea within normal limits. Periorbital areas with no swelling, redness, or edema. ENT: Nares patent. No nasal discharge, no septal abnormalities noted. External auditory canals are clear. Oropharynx with no redness, swelling, or masses, exudates, or evidence of obstruction, uvula midline. Mucous membranes moist. Neck: Trachea midline, no thyromegaly or masses palpated, and no cervical lymphadenopathy. Supple, full range of motion without nuchal rigidity, or vertebral point tenderness. No Meningismus. Chest/axilla: Normal chest wall appearance and motion. Nontender with no deformity. No lesions are appreciated. Cardiovascular: Regular rate and rhythm with a normal S1 and S2. No gallops, murmurs, or rubs. Normal PMI, no JVD. No pulse deficits. Respiratory: Lungs have equal breath sounds bilaterally, clear to auscultation and percussion. No rales, rhonchi or wheezes noted. No increased work of breathing, no retractions or nasal flaring. Abdomen/GI: Soft, non-tender, with normal bowel sounds. No distension or tympany. No guarding or rebound. No evidence of tenderness throughout. Back: No spinal tenderness. No costovertebral tenderness. Full range of motion. Skin: Warm, dry with normal turgor. Normal color with no rashes, no lesions, and no evidence of cellulitis. MS/ Extremity: Pulses equal, no cyanosis. Neurovascular intact. Full, normal range of motion. Neuro: Awake and alert, GCS 15, oriented to person, place, time, and situation. Cranial nerves II-XII grossly intact. Motor strength 5/5 in all extremities. Sensory grossly intact. Cerebellar exam normal. Normal gait. Psych: Awake, alert, with orientation to person, place and time. Behavior, mood, and affect are within normal limits. Vital Signs: 13:02 BP 130 / 79; Pulse 87; Resp 17; Temp 97.8; Pulse Ox 98% on R/A; Weight 111.13 kg; jl7 Height 5 ft. 7 in. (170.18 cm); Pain 3/10; 13:35 BP 125 / 89; Pulse 88; Resp 18; Pulse Ox 100% ; mb9 13:02 Body Mass Index 38.37 (111.13 kg, 170.18 cm) jl7 MDM: 13:32 Patient medically screened. sp3 13:35 Data reviewed: vital signs, nurses notes. ED course: 26-year-old female with likely sp3 esophageal reflux versus esophageal spasm versus functional chest pain. Given the EKG being normal and chest x-ray being normal and her age, I am not highly suspicious for coronary artery disease or other cardiac process. Clinically have also ruled out pulmonary embolism, thoracic aortic dissection, pneumonia, pleurisy. Given resolution of symptoms the end of H\T\P, I believe we can safely discharge patient home. I have assured her that she may return at any time for any further emergency or feelings of concern and she can also follow-up with her primary care physician. Patient acknowledged and was thankful for her treatment and was subsequently safely discharged.. 04/04 12:32 Order name: XRAY Chest (1 view) sp3 04/04 12:32 Order name: EKG; Complete Time: 12:34 sp3 04/04 12:32 Order name: EKG - Nurse/Tech; Complete Time: 13:22 sp3 Administered Medications: No medications were administered Disposition Summary: 04/04/22 13:38 Discharge Ordered Location: Home sp3 Condition: Stable sp3 Diagnosis - Chest pain, unspecified sp3 Followup: sp3 - With: Private Physician - When: As needed - Reason: If symptoms return, Further diagnostic work-up Discharge Instructions: - Discharge Summary Sheet sp3 - Nonspecific Chest Pain, Adult sp3 Forms: - Medication Reconciliation Form sp3 - Thank You Letter sp3 - Antibiotic Education sp3 - Prescription Opioid Use sp3 Signatures: Dispatcher [employer] EDMS Silvia Isidro, RN RN jl7 Paramjit Romano, MD sp3
[2022-04-04 13:57] VITALS: TEMP 97.8
[2022-04-04 13:59] VITALS: BP 125/89; O2SAT 100
--- NOTE | 2022-04-05 16:03 | EKG ---
Test Date: 2022-04-04 Test Time: 13:21:38 Brush Machine Setter: MB MEASUREMENT RESULTS: Intervals: Rate: 76 [place]: 172 QRSD: 88 QT: 352 QTc: 396 [place]: P: 62 [place]: 172 QRS: 67 T: 19 INTERPRETIVE STATEMENTS: Normal sinus rhythm Nonspecific T wave abnormality Abnormal ECG Compared to ECG 11/06/2016 13:45:06 T-wave abnormality now present Electronically Signed On 04-05-22 16:00:38 PRODUCTION LINE ASSEMBLER by Diego Carrillo
== END 2022-04-04 13:44 | disposition home or self-care (01) ==
LOC: ER 12:03
DX: R07.89 Other chest pain (principal)
CPT/HCPCS: 71045; 93005; 99284

== ENCOUNTER 2023-08-12 11:33 | Emergency (ER) | payer SELFPAY ==
--- NOTE | 2023-08-12 11:58 | ER ---
Nurse's Notes [facility] Name: Gail Juárez Age: 28 yrs Sex: Female : 1995 Arrival Date: 08/12/2023 Time: 11:33 Bed IW2 Private MD: Diagnosis: Tooth pain Presentation: 08/11 11:44 Chief complaint: Patient states: "I've had tooth pain for the past 2 days. It's keeping mb9 me awake at night. Ibuprofen and Tylenol isn't working anymore.". Coronavirus screen: At this time, the client does not indicate any symptoms associated with coronavirus-19. Ebola Screen: No symptoms or risks identified at this time. Initial Sepsis Screen: Does the patient meet any 2 criteria? No. Patient's initial sepsis screen is negative. Does the patient have a suspected source of infection? No. Patient's initial sepsis screen is negative. Risk Assessment: Do you want to hurt yourself or someone else? Patient reports no desire to harm self or others. Onset of symptoms was August 12, 2023. 11:44 Method Of Arrival: Ambulatory 9 11:44 Acuity: CHAYO 4 mb9 Triage Assessment: 11:46 General: Appears in no apparent distress. Behavior is calm, cooperative. Pain: mb9 Complains of pain in right side of mouth. EENT: Poor dentition noted. EENT: Reports pain since in toothh. Neuro: Tilley Agitation-Sedation Scale (RASS): 0 - Alert and Calm Level of Consciousness is awake, alert, obeys commands, Oriented to person, place, time, situation, Appropriate for age. Cardiovascular: Patient's skin is warm and dry. Respiratory: Airway is patent Respiratory effort is even, unlabored, Respiratory pattern is regular, symmetrical. GI: No signs and/or symptoms were reported involving the gastrointestinal system. : No signs and/or symptoms were reported regarding the genitourinary system. Derm: Skin is pink, warm \\T\\ dry. Musculoskeletal: Range of motion: intact in all extremities. TECHNICAL AIDE: 11:47 LMP N/A - , Not mb9 Historical: - Allergies: 11:45 No Known Allergies; mb9 - Home Meds: 11:45 None [Active]; mb9 - PMHx: 11:45 pre-diabetic; mb9 - PSHx: 11:45 Cholecystectomy; Tonsillectomy; tubal ligation; wisdom tooth removal; mb9 - Immunization history:: Adult Immunizations up to date. - Infectious Disease History:: Denies. - Social history:: Smoking status: Patient denies any tobacco usage or history of. Screenin:47 [facility] ED Fall Risk Assessment (Adult) History of falling in the last 3 months, mb9 including since admission No falls in past 3 months (0 pts) Confusion or Disorientation No (0 pts) Intoxicated or Sedated No (0 pts) Impaired Gait No (0 pts) Mobility Assist Device Used No (0 pt) Altered Elimination No (0 pt) Score/Fall Risk Level 0 - 2 = Low Risk Oriented to surroundings, Maintained a safe environment, Educated pt \\T\\ family on fall prevention, incl call for assistance when getting out of bed. Abuse screen: Denies threats or abuse. Nutritional screening: No deficits noted. Tuberculosis screening: No symptoms or risk factors identified. Assessment: 11:46 Reassessment: see triage assessment. mb9 Vital Signs: 11:44 BP 159 / 98; Pulse 80; Resp 18; Temp 97.7; Pulse Ox 100% on R/A; Weight 117.93 kg; mb9 Height 5 ft. 7 in. ; Pain 10/10; 11:44 Body Mass Index 40.72 (117.93 kg, 170.18 cm) mb9 11:44 Pain Scale: Adult mb9 ED Course: 11:37 Patient arrived in ED. mr 11:44 Reji Graham DO is Attending Physician. ms3 11:45 Triage completed. mb9 11:45 Arm band placed on. mb9 11:47 Patient has correct armband on for positive identification. Provided Education on: mb9 process of ER. 11:47 No provider procedures requiring assistance completed. Patient did not have IV access mb9 during this emergency room visit. 11:57 Richard Cole DDS is Referral Physician. ms3 Administered Medications: No medications were administered Medication: 11:47 VIS not applicable for this client. mb9 Outcome: 11:57 Discharge ordered by . ms3 12:16 Discharged to home ambulatory, as6 12:16 Condition: stable 12:16 Discharge instructions given to patient, Instructed on discharge instructions, follow up and referral plans. medication usage, Demonstrated understanding of instructions, follow-up care, medications, Prescriptions given X 2, 12:17 Patient left the ED. as6 Signatures: Amanda Landon, Devon Osorio mr Reji Graham DO DO ms3 Jonathon Everett RN RN as6 Amanda Rodriguez RN RN mb9
--- OUTSIDE RECORDS SUMMARY | 2023-08-12 12:22 | XMS REPORT | Continuity of Care Document ---
Author Name Unknown Address [address] [place] [address] [facility] thconnect Address [address] [place] [address] Care Team Providers Care Room Cleaner Name Role Phone Craig Dayday MCLEOD Primary Care Physician + [phone] LIZETTE LUGO Attending Clinician Unavail able Lizette Patino Attending Clinician + Naomi Souza MD Attending Clinician + Kate Rome MD Attending Clinician [phone] Risk, Vix-Ygutn-Jx/High Attending Clinician Unav Mary Grace Varela Attending Clinician [phone] Ultrasound, Dusty[employer]fm Attending Clinician Dion Lo MD Attending Clinician [phone] TONIO ECHOLS Attending Clinician Unavailable Jaclyn Duval MD Attending Clinician [phone] Radha Mehta MD Attending Clinician [phone] Doctor Unassigned, [place] Attending Clinician U ARSALAN Yang Attending Clinician Unavail able Arsalan Blandon DO Attending Clinician +[phone] DAYDAY GRAHAM Attending Clinician Unavailabl e Lab, Ang[facility]Rmch[facility] Attending Clinician Unavailable Craig RESIDENT CARE TECHNICIAN, Dayday Sanchez Attending Clinician [phone] [facility] Attending Clinician [phone] Tamiko Goncalves MD Attending Clinician [phone] Mickey MCLEOD, Paul Attending Clinician [phone] PAUL AREVALO Attending Clinician Unavailable matadrienne Attending Clinician Unavailable Altagracia Blandon MD Attending Clinician [phone] Yas Cordero Attending Clinician +[phone] Virginie Sutton RN Attending Clinician UnavailKATE Aleman Admitting Clinician Unavailable JACLYN DUVAL Admitting Clinician Unavailable RADHA MEHTA Admitting Clinician Unavailable Naomi Souza MD Admitting Clinician + Jaclyn Duval MD Admitting Clinician [phone] Radha Mehta MD Admitting Clinician [phone] theresa Admitting Clinician Unavailable Altagracia Blandon MD Admitting Clinician [phone] Yas Cordero Admitting Clinician +[phone] Payers Payer Name Policy Type Policy Number Effective Date Expirati on Date Source [facility] [id number] 2020 00:00:00 MEDICAID PENDING PENDING 2020 00:00:00 Problems Condition Name Condition Details Condition Category Status Onset Date Resolution Date Last Treatment Date Treating Clinician Comments Source Other general counseling and advice for contracept mark management Other general counseling and advice for contracept mark management Disease Active 7-14 00:00: 00 [facility] Well woman exam Well woman exam Disease Active 6-21 00:00: 00 [facility] History of tubal ligation History of tubal ligation Disease Active 621 00:00: 00 [facility] Single liveborn Single liveborn Disease Active 30 00:00: 00 [facility] (spontaneo us vaginal delivery) (spontaneo us vaginal delivery) Disease Active 530 00:00: 00 [facility] 37 weeks gestation of 37 weeks gestation of Disease Active 528 00:00: 00 [facility] 36 weeks gestation of 36 weeks gestation of Disease Active 22 00:00: 00 [facility] High-risk in third trimester High-risk in third trimester Disease Active 520 00:00: 00 [facility] Oral hypoglycem ic controlled White classifica tion A2 gestationa l diabetes mellitus (GDM) Oral hypoglycem ic controlled White classifica tion A2 gestationa l diabetes mellitus (GDM) Disease Active 520 00:00: 00 [facility] Abnormal finding in urine Abnormal finding in urine Disease Active 520 00:00: 00 [facility] Hematuria, unspecifie d type Hematuria, unspecifie d type Disease Active 520 00:00: 00 [facility] Diabetes mellitus complicati ng , antepartum Diabetes mellitus complicati ng , antepartum Disease Active 18 00:00: 00 [facility] Diabetes mellitus complicati ng , antepartum Diabetes mellitus complicati ng , antepartum Disease Active 18 00:00: 00 [facility] GDM (gestation al diabetes mellitus) GDM (gestation al diabetes mellitus) Disease Active 318 00:00: 00 [facility] Abnormal maternal glucose tolerance, antepartum Abnormal maternal glucose tolerance, antepartum Disease Active 3-10 00:00: 00 Overview: Formattin g of this note might be different from the original. Pending 3hr gtt [facility] Anemia of mother in , antepartum Anemia of mother in , antepartum Disease Active 3-05 00:00: 00 [facility] Dizziness and giddiness Dizziness and giddiness Disease Active 3-04 00:00: 00 [facility] Obesity (BMI 30-39.9) Obesity (BMI 30-39.9) Disease Active 2019-02 00:00: 00 [facility] Supervisio n of high risk in second trimester Supervisio n of high risk in second trimester Disease Active 2019-02 00:00: 00 [facility] Multiparit y Multiparit y Disease Active 2019-02 00:00: 00 [facility] Obesity complicati ng , childbirth , or puerperium , antepartum Obesity complicati ng , childbirth , or puerperium , antepartum Disease Active 2019-02 00:00: 00 [facility] Tubal ligation evaluation Tubal ligation evaluation Disease Active 2019-02 00:00: 00 [facility] Refused influenza vaccine Refused influenza vaccine Disease Active 2019-02 00:00: 00 [facility] Elevated BP without diagnosis of hypertensi on Elevated BP without diagnosis of hypertensi on Disease Active 2019-02 00:00: 00 [facility] Nausea and vomiting during Nausea and vomiting during Disease Active 2019-02 00:00: 00 [facility] screening for Down syndrome declined screening for Down syndrome declined Disease Active 2019-02 00:00: 00 [facility] Obesity in Obesity in Disease Active 2019-02 00:00: 00 [facility] Nexplanon removal Nexplanon removal Disease Active 2018-02 00:00: 00 Overview: Placed 11/2018 removed 02/2019 [facility] Well woman exam Well woman exam Disease Active 2018-02 0-07 00:00: 00 [facility] Routine follow-up Routine follow-up Disease Active 2019-0 9-16 00:00: 00 [facility] Anemia, Anemia, Disease Active 20190 8-26 00:00: 00 [facility] Anemia, Anemia, Disease Active 8-26 00:00: 00 [facility] 38 weeks gestation of 38 weeks gestation of Disease Active 2019 8-25 00:00: 00 [facility] Nausea & vomiting Nausea & vomiting Disease Active 8-25 00:00: 00 [facility] Encounter for induction of labor Encounter for induction of labor Disease Active 8 00:00: 00 [facility] Obesity (BMI 30-39.9) Obesity (BMI 30-39.9) Disease Active 8-12 00:00: 00 [facility] Decreased movements in third trimester Decreased movements in third trimester Disease Active 8-12 00:00: 00 [facility] 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 Disease Active 8-09 00:00: 00 [facility] Pain of round ligament affecting , antepartum Pain of round ligament affecting , antepartum Disease Active 5-20 00:00: 00 [facility] Vaginal yeast infection Vaginal yeast infection Disease Active 2019 3-13 00:00: 00 [facility] Headache in Headache in Disease Active 2019 3-04 00:00: 00 [facility] Nausea and vomiting during Nausea and vomiting during Disease Active 2019 2-04 00:00: 00 [facility] Chlamydia trachomati s infection of lower genitourin fiona sites Chlamydia trachomati s infection of lower genitourin finoa sites Disease Active 2019 1-08 00:00: 00 Overview: Jhon negative repeat at 36 weeks [facility] Abnormal maternal glucose tolerance, antepartum Abnormal maternal glucose tolerance, antepartum Disease Active 1-05 00:00: 00 Overview: Passed early 3hr, will need 3hr at 28 weeks -passed [facility] Influenza vaccinatio n declined Influenza vaccinatio n declined Disease Active 02-20 00:00: 00 [facility] History of hypothyroi dism History of hypothyroi dism Disease Active 02-20 00:00: 00 Overview: No medicatio n, consider labs second trimester [facility] Rubella non-immune status, antepartum Rubella non-immune status, antepartum Disease Active 2013-02 00:00: 00 [facility] Obesity affecting in third trimester Obesity affecting in third trimester Disease Active 2013-02 00:00: 00 Overview: Formattin g of this note might be different from the original. 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 [facility] Supervisio n of high-risk Supervisio n of high-risk Disease Active 2013-02 00:00: 00 [facility] Allergies, Adverse Reactions, Alerts Allergy Name Allergy Type Status Severity Reaction(s) Onset Date Inactive Date Treating Clinician Comments Source No Known Allergie s DA Active U 06-04 00:00: 00 [facility] No Known Allergie s DA Active U 06-04 00:00: 00 [facility] NO KNOWN ALLERGIE S Drug Class Active [facility] Social History Social Habit Start Date Stop Date Quantity Comments Source ASSERTION 2019-11-08 00:00:00 [facility] Exposure to SARS-CoV-2 (event) 2020-07-31 00:00:00 2020-08-30 08:38:00 Not sure [facility] Alcohol intake 2019-12-06 00:00:00 2019-12-06 00:00:00 Current non-drinker of alcohol (finding) [facility] History of Social function 2019-12-03 00:00:00 2019-12-03 00:00:00 [facility] Tobacco use and exposure 2013-12-07 00:00:00 2013-12-07 00:00:00 Smokeless tobacco non-user [facility] Sex Assigned At 1995 00:00:00 1995 00:00:00 [facility] Smoking Status Start Date Stop Date Source Never smoked tobacco [facility] Medications Ordered Medication Name Filled Medication Name Start Date Stop Date Current Medication? Ordering Clinician Indication Dosage Frequency Signature (SIG) Comments Components Source HYDROcodone -acetaminop hen (NORCO 5) 5-325 mg tablet 1 tablet 07-16 01:56: 22 Yes 1{tbl} 1 tablet, Oral, Q6HPRN, Starting 07/15/20 at 2055, Until Discontinu ed, Routine, Pain (scale 7-10) [facility] rho(D) immune globulin (RHOGAM) syringe 300 mcg 07-16 01:39: 54 Yes 300ug 300 mcg, Intramuscu lar, ONCE, For 1 dose, Conditiona l, Routine [facility] ondansetron (ZOFRAN (PF)) injection 4 mg 07-16 01:39: 06 Yes 4mg 4 mg, Slow IV Push, Q8HPRN, Starting 07/15/20 at 2038, Until Discontinu ed, Routine, Nausea and Vomiting (N/V) [facility] simethicone (GAS RELIEF (SIMETHICON E)) chewable tablet 160 mg 07-16 01:39: 06 Yes 160mg 160 mg, Oral, PC+HSPRN, Starting 07/15/20 at 2038, Until Discontinu ed, Routine, Gas [facility] acetaminoph en (TYLENOL) tablet 650 mg 07-16 01:39: 05 Yes 650mg 650 mg, Oral, Q6HPRN, Starting 07/15/20 at 2038, Until Discontinu ed, Routine, Pain (scale 1-3) [facility] diphenhydrA MINE (BENADRYL) tablet 25 mg 07-16 01:39: 05 Yes 25mg 25 mg, Oral, Q6HPRN, Starting 07/15/20 at 2038, Until Discontinu ed, Routine, Sleep, Itching [facility] diphenhydrA MINE-0.9 % sod.chlr (BENADRYL) 25 mg/50 mL piggyback 25 mg 07-16 01:39: 05 Yes 25mg 25 mg, IV Piggyback, Administer over 30 Minutes, Q6HPRN, Starting 07/15/20 at 2038, Until Discontinu ed, Routine, Itching [facility] docusate calcium (SURFAK) capsule 240 mg 07-16 01:39: 05 Yes 240mg 240 mg, Oral, QDAILYPRN, Starting 07/15/20 at 2038, Until Discontinu ed, Routine, Constipati on [facility] magnesium hydroxide (MILK OF MAGNESIA) 400 mg/5 mL suspension 30 mL 07-16 01:39: 05 Yes 30mL 30 mL, Oral, QDAILYPRN, Starting 07/15/20 at 2038, Until Discontinu ed, Routine, Constipati on [facility] benzocaine- menthol (DERMOPLAST ) 20-0.5 % topical spray 07-16 01:39: 05 Yes Topical, PRN, Starting 07/15/20 at 2038, Until Discontinu ed, Routine, Perineum discomfort [facility] acetaminoph en ADULT (OFIRMEV) injection 1,000 mg 07-16 01:00: 00 07-16 00:23 :00 No 1000mg 1,000 mg, IV Infusion, Administer over 15 Minutes, ONCE, 1 dose, 07/15/20 at 2000, Routine, PACU
In dication: Perioperat mark Patient [facility] ketorolac (TORADOL) injection 30 mg 07-16 00:01: 12 07-16 00:51 :00 No 30mg 30 mg, Slow IV Push, Q6HPRN, 1 dose, Starting 07/15/20 at 1901, Until 07/15/20 at 195, Routine, Pain (scale 4-6), [facility] : KELLEN KENNEDY [facility] vitamin w/FA tablet 07-16 00:00: 00 Yes [id number] 1{tbl} Take 1 tablet by mouth daily. [facility] ferrous sulfate 325 mg (65 mg iron) tablet 07-16 00:00: 00 Yes [id number] 325mg Take 1 tablet by mouth 2 (two) times daily. [facility] docusate calcium 240 mg capsule 07-16 00:00: 00 Yes [id number] 240mg Take 1 capsule by mouth once daily as needed for Constipati on. [facility] ibuprofen 600 mg tablet 07-16 00:00: 00 Yes [id number] 600mg Take 1 tablet by mouth every 6 (six) hours as needed for Pain (scale 4-6). [facility] acetaminoph en 325 mg tablet 07-16 00:00: 00 07-17 04:59 :00 No [id number] 650mg Take 2 tablets by mouth every 6 (six) hours as needed for Pain (scale 1-3). [facility] bupivacaine (preserv free) (SENSORCAIN E MPF) 0.25 % (2.5 mg/mL) injection 07-15 23:06: 00 Yes PRN, Starting 07/15/20 at 1806, Until Discontinu ed, Routine, Intra-op [facility] ibuprofen (IBU) tablet 600 mg 07-15 19:22: 05 Yes 600mg 600 mg, Oral, Q6HPRN, Starting 07/15/20 at 1422, Until Discontinu ed, Routine, Pain (scale 4-6) [facility] ibuprofen (IBU) tablet 600 mg 07-15 19:22: 00 07-15 19:25 :00 No 600mg 600 mg, Oral, ONCE, 1 dose, 07/15/20 at 1430, Routine [facility] ondansetron (ZOFRAN (PF)) injection 4 mg 07-15 15:54: 00 07-15 15:56 :00 No 4mg 4 mg, Slow IV Push, ONCE, 1 dose, 07/15/20 at 1100, Routine [facility] LR 1000 mL + oxytocin 20 units IV Solution 07-15 14:45: 00 07-15 17:23 :00 No 999mL/h 999 mL/hr, IV Infusion, ONCE, 07/15/20 at 0945, For 1 dose
In fuse 999 mL /hr & nbsp;over 30 minutes and then decrease rate to 125 mL/hr for the remainder.
[facility] pantoprazol e (PROTONIX) EC tablet 40 mg 07-15 14:00: 00 Yes 40mg 40 mg, Oral, DAILY, First dose on 07/15/20 at 0900, Until Discontinu ed, Routine [facility] lactated ringers IV infusion 500 mL 07-15 08:30: 00 07-15 07:48 :00 No 500mL at 999 mL/hr, 500 mL, IV Infusion, ONCE, 1 dose, 07/15/20 at 0330, Routine [facility] sodium citrate-cit gloria acid (BICITRA) 500-334 mg/5 mL solution 30 mL 07-15 07:27: 28 07-15 22:30 :00 No 30mL 30 mL, Oral, PRE-PROCED URE ONCE, 1 dose, Starting 07/15/20 at 0227, Until Discontinu ed, Routine, Surgery/Pr ocedure [facility] butalbital- acetaminoph en-caff (ESGIC) 50-325-40 mg tablet 2 tablet 07-15 07:15: 00 07-15 06:20 :00 No 2{tbl} 2 tablet, Oral, ONCE, 1 dose, 07/15/20 at 0215, Routine [facility] D5W-LR IV infusion 1,000 mL 07-15 04:00: 00 07-16 01:39 :54 No 1000mL at 125 mL/hr, IV Infusion, CONTINUOUS , Starting Fri07/14/20 at 2300, Until 07/15/20 at 2039, Routine [facility] Sliding Scale Insulin - Regular + Fsbg Testing 07-15 03:58: 17 07-16 01:39 :54 No Subcutaneo us, SEE-INSTRU CTIONS, Starting Fri07/14/20 at 2258, Until 07/15/20 at 2039, Routine [facility] sodium citrate-cit gloria acid (BICITRA) 500-334 mg/5 mL solution 30 mL 07-15 03:57: 09 07-15 07:47 :00 No 30mL 30 mL, Oral, PRE-PROCED URE ONCE, 1 dose, Starting 07/14/20 at 2257, Until Discontinu ed, Routine, Surgery/Pr ocedure [facility] metroNIDAZO LE 500 mg tablet 07-09 00:00: 00 07-16 00:00 :00 No [id number] 500mg Take 1 tablet by mouth 2 (two) times daily. [facility] glyBURIDE 2.5 mg tablet 06-22 00:00: 00 07-16 00:00 :00 No [id number] Take 1 tab PO AC breakfast and 1 tab PO HS with snack [facility] pantoprazol e (PROTONIX) 40 mg EC tablet 06-22 00:00: 00 07-16 00:00 :00 No [id number] 40mg Take 1 tablet by mouth daily. [facility] proMETHazin e 25 mg tablet 06-22 00:00: 00 07-16 00:00 :00 No [id number] 25mg Take 1 tablet by mouth every 6 (six) hours as needed for Nausea and Vomiting (N/V). [facility] Lancets (ONETOUCH ULTRASOFT LANCETS) [facility] 05-04 00:00: 00 Yes [id number] Check blood glucose 4x daily [facility] Blood-Gluco se Meter (ONETOUCH ULTRA2 METER) Kit 05-04 00:00: 00 07-16 00:00 :00 No [id number] Check blood glucose 4x dialy [facility] Lancets (ONETOUCH ULTRASOFT LANCETS) [facility] 05-04 00:00: 00 07-16 00:00 :00 No [id number] Check blood glucose 4x daily [facility] blood sugar diagnostic (ONETOUCH VERIO TEST STRIPS) strip 3-18 00:00: 00 07-16 00:00 :00 No [id number] Check blood glucose 4x daily [facility] ascorbic acid, vitamin C, 500 mg tablet 310 00:00: 00 07-16 00:00 :00 No [id number] 500mg Take 1 tablet by mouth 3 (three) times daily. [facility] ferrous sulfate 325 mg (65 mg iron) tablet 10 00:00: 00 07-16 00:00 :00 No [id number] 325mg Take 1 tablet by mouth 2 (two) times daily. [facility] ferrous sulfate 325 mg (65 mg iron) tablet 04-21 00:00: 00 Yes [id number] 325mg Take 1 tablet by mouth 2 (two) times daily. [facility] ascorbic acid, vitamin C, 500 mg tablet 04-21 00:00: 00 Yes [id number] 500mg Take 1 tablet by mouth 3 (three) times daily. [facility] PNV 67-iron ps-folate no.1-dha (VITAFOL ULTRA) 29 mg iron- 1 mg-200 mg Cap 2019-02 215 00:00: 00 07-16 00:00 :00 No [id number] 1{capsu le} Take 1 capsule by mouth daily. [facility] PNV 67-iron ps-folate no.1-dha (VITAFOL ULTRA) 29 mg iron- 1 mg-200 mg Cap 2019-02 2-15 00:00: 00 07-16 00:00 :00 No [id number] 1{capsu le} Take 1 capsule by mouth daily. [facility] measles, mumps + rubella vac (M-M-R II) 1,000-12,50 0 TCID50/0.5 mL injection 0.5 mL 10-13 13:00: 00 10-13 17:27 :00 No .5mL 0.5 mL, Subcutaneo us, ONCE, 1 dose, Fri10/13/18 at 0800, Routine [facility] vitamin w/FA tablet 10-13 00:00: 00 12-02 00:00 :00 No [id number] 1{tbl} Take 1 tablet by mouth daily. [facility] docusate calcium 240 mg capsule 10-13 00:00: 00 12-02 00:00 :00 No [id number] 240mg Take 1 capsule by mouth once daily as needed for Constipati on. [facility] ferrous sulfate 325 mg (65 mg iron) tablet 10-13 00:00: 00 12-02 00:00 :00 No [id number] 325mg Take 1 tablet by mouth 2 (two) times daily. [facility] ibuprofen 600 mg tablet 10-13 00:00: 00 12-02 00:00 :00 No [id number] 600mg Take 1 tablet by mouth every 6 (six) hours as needed for Pain (scale 1-3) or Pain (scale 4-6) (Pain). Take with food or milk. [facility] human papillomav vac,9-katherine(P F) (GARDASIL 9 (PF)) vial 0.5 mL 10-12 10:32: 12 Yes .5mL 0.5 mL, Intramuscu lar, ONCE-PRIOR TO DISCHARGE, 1 dose, Starting Fri10/12/18 at 0532, Until Discontinu ed, Routine, Give vaccine prior to discharge [facility] acetaminoph en (TYLENOL) tablet 650 mg 10-12 10:32: 12 Yes 650mg 650 mg, Oral, Q6HPRN, Starting 10/12/18 at 0532, Until Discontinu ed, Routine, Pain (scale 1-3) [facility] ibuprofen (IBU) tablet 600 mg 10-12 10:32: 12 Yes 600mg 600 mg, Oral, Q6HPRN, Starting 10/12/18 at 0532, Until Discontinu ed, Routine, Pain (scale 4-6) [facility] diphenhydrA MINE (BENADRYL) tablet 25 mg 10-12 10:32: 12 Yes 25mg 25 mg, Oral, Q6HPRN, Starting Fri10/12/18 at 0532, Until Discontinu ed, Routine, Sleep, Itching [facility] ondansetron (ZOFRAN (PF)) injection 4 mg 10-12 10:32: 12 Yes 4mg 4 mg, Slow IV Push, Q8HPRN, Starting Fri10/12/18 at 0532, Until Discontinu ed, Routine, Nausea and Vomiting (N/V) [facility] simethicone (GAS RELIEF) chewable tablet 160 mg 10-12 10:32: 12 Yes 160mg 160 mg, Oral, PC+HSPRN, Starting Fri10/12/18 at 0532, Until Discontinu ed, Routine, Gas [facility] docusate calcium (SURFAK) capsule 240 mg 10-12 10:32: 12 Yes 240mg 240 mg, Oral, QDAILYPRN, Starting Fri10/12/18 at 0532, Until Discontinu ed, Routine, Constipati on [facility] magnesium hydroxide (MILK OF MAGNESIA) 400 mg/5 mL suspension 30 mL 10-12 10:32: 12 Yes 30mL 30 mL, Oral, QDAILYPRN, Starting Fri10/12/18 at 0532, Until Discontinu ed, Routine, Constipati on [facility] benzocaine- menthol (DERMOPLAST ) 20-0.5 % topical spray 10-12 10:32: 12 Yes Topical, PRN, Starting Fri10/12/18 at 0532, Until Discontinu ed, Routine, Perineum discomfort [facility] ondansetron (ZOFRAN (PF)) injection 4 mg 10-12 08:15: 00 10-12 07:21 :00 No 4mg 4 mg, Slow IV Push, ONCE, 1 dose, Fri10/12/18 at 0315, Routine [facility] LR 1000 mL + oxytocin 20 units IV Solution 10-12 06:45: 00 10-12 05:57 :00 No at 999 mL/hr, IV Infusion, ONCE, 1 dose, Fri10/12/18 at 0145, Routine [facility] sodium citrate-cit gloria acid (BICITRA) 500-334 mg/5 mL solution 30 mL 10-11 21:25: 17 10-11 21:43 :00 No 30mL 30 mL, Oral, PRE-PROCED URE ONCE, 1 dose, Starting 10/11/18 at 1625, Until Discontinu ed, Routine, Surgery/Pr ocedure [facility] LR 1000 mL + oxytocin 20 units IV Solution 10-11 17:44: 00 10-12 10:32 :17 No 2mU/min 2 radha-unit s/min (6 mL/hr), at 6 mL/hr, IV Infusion, TITRATE, Starting 10/11/18 at 1244, Until 10/12/18 at 0532, TERI, CTX q2m [facility] acetaminoph en-caff-but albital (ESGIC) per capsule 08-26 00:00: 00 12-02 00:00 :00 No [id number] 1{capsu le} Take 1 capsule by mouth every 6 (six) hours as needed for Pain. [facility] proMETHazin e 25 mg tablet 06-26 00:00: 00 12-02 00:00 :00 No [id number] 25mg Take 1 tablet by mouth every 6 (six) hours as needed for Nausea and Vomiting (N/V). [facility] acetaminoph en-caff-but albital (ESGIC) per capsule 06-26 00:00: 00 09-30 00:00 :00 No [id number] 1{capsu le} Take 1 capsule by mouth every 6 (six) hours as needed (headache) . [facility] proMETHazin e 25 mg tablet 03-05 00:00: 00 09-30 00:00 :00 No [id number] 25mg Take 1 tablet by mouth every 6 (six) hours as needed for Nausea and Vomiting (N/V). [facility] No known medications No Un indra [facility] No known medications No Un indra [facility] No known medications No Un indra [facility] Immunizations Ordered Immunization Name Filled Immunization Name Date Status Comments Source SARS-COV-2 COVID-19 MODERNA VACCINE 2020-06-20 00:00:00 Completed [facility] SARS-COV-2 COVID-19 MODERNA VACCINE 2020-06-20 00:00:00 Completed [facility] SARS-COV-2 COVID-19 MODERNA VACCINE 2020-06-20 00:00:00 Completed [facility] SARS-COV-2 COVID-19 MODERNA VACCINE 2020-06-20 00:00:00 Completed [facility] SARS-COV-2 COVID-19 MODERNA VACCINE 2020-06-20 00:00:00 Completed [facility] SARS-COV-2 COVID-19 MODERNA VACCINE 2020-06-20 00:00:00 Completed [facility] [facility] COVID-19 MODERNA VACCINE 2020-06-20 00:00:00 Completed [facility] SARS-COV-2 COVID-19 MODERNA VACCINE 2020-06-20 00:00:00 Completed [facility] SARS-COV-2 COVID-19 MODERNA VACCINE 2020-06-20 00:00:00 Completed [facility] SARS-COV-2 COVID-19 MODERNA VACCINE 2020-06-20 00:00:00 Completed [facility] SARS-COV-2 COVID-19 MODERNA VACCINE 2020-06-20 00:00:00 Completed [facility] SARS-COV-2 COVID-19 MODERNA VACCINE 2020-06-20 00:00:00 Completed [facility] SARS-COV-2 COVID-19 MODERNA VACCINE 2020-06-20 00:00:00 Completed [facility] SARS-COV-2 COVID-19 MODERNA VACCINE 2020-06-20 00:00:00 Completed [facility] SARS-COV-2 COVID-19 MODERNA VACCINE 2020-06-20 00:00:00 Completed [facility] SARS-COV-2 COVID-19 MODERNA VACCINE 2020-06-20 00:00:00 Completed [facility] SARS-COV-2 COVID-19 MODERNA VACCINE 2020-06-20 00:00:00 Completed [facility] SARS-COV-2 COVID-19 MODERNA VACCINE 2020-06-20 00:00:00 Completed [facility] SARS-COV-2 COVID-19 MODERNA VACCINE 2020-06-20 00:00:00 Completed [facility] SARS-COV-2 COVID-19 MODERNA VACCINE 2020-06-20 00:00:00 Completed [facility] SARS-COV-2 COVID-19 MODERNA VACCINE 2020-06-20 00:00:00 Completed [facility] SARS-COV-2 COVID-19 MODERNA VACCINE 2020-06-20 00:00:00 Completed [facility] SARS-COV-2 COVID-19 MODERNA VACCINE 2020-06-20 00:00:00 Completed [facility] SARS-COV-2 COVID-19 MODERNA VACCINE 2020-06-20 00:00:00 Completed [facility] SARS-COV-2 COVID-19 MODERNA VACCINE 2020-06-20 00:00:00 Completed [facility] SARS-COV-2 COVID-19 MODERNA VACCINE 2020-06-20 00:00:00 Completed [facility] SARS-COV-2 COVID-19 MODERNA VACCINE 2020-06-20 00:00:00 Completed [facility] SARS-COV-2 COVID-19 MODERNA VACCINE 2020-06-20 00:00:00 Completed [facility] SARS-COV-2 COVID-19 MODERNA VACCINE 2020-05-23 00:00:00 Completed [facility] SARS-COV-2 COVID-19 MODERNA VACCINE 2020-05-23 00:00:00 Completed [facility] SARS-COV-2 COVID-19 MODERNA VACCINE 2020-05-23 00:00:00 Completed [facility] SARS-COV-2 COVID-19 MODERNA VACCINE 2020-05-23 00:00:00 Completed [facility] SARS-COV-2 COVID-19 MODERNA VACCINE 2020-05-23 00:00:00 Completed [facility] SARS-COV-2 COVID-19 MODERNA VACCINE 2020-05-23 00:00:00 Completed [facility] SARS-COV-2 COVID-19 MODERNA VACCINE 2020-05-23 00:00:00 Completed [facility] SARS-COV-2 COVID-19 MODERNA VACCINE 2020-05-23 00:00:00 Completed [facility] SARS-COV-2 COVID-19 MODERNA VACCINE 2020-05-23 00:00:00 Completed [facility] SARS-COV-2 COVID-19 MODERNA VACCINE 2020-05-23 00:00:00 Completed [facility] SARS-COV-2 COVID-19 MODERNA VACCINE 2020-05-23 00:00:00 Completed [facility] SARS-COV-2 COVID-19 MODERNA VACCINE 2020-05-23 00:00:00 Completed [facility] SARS-COV-2 COVID-19 MODERNA VACCINE 2020-05-23 00:00:00 Completed [facility] SARS-COV-2 COVID-19 MODERNA VACCINE 2020-05-23 00:00:00 Completed [facility] SARS-COV-2 COVID-19 MODERNA VACCINE 2020-05-23 00:00:00 Completed [facility] SARS-COV-2 COVID-19 MODERNA VACCINE 2020-05-23 00:00:00 Completed [facility] SARS-COV-2 COVID-19 MODERNA VACCINE 2020-05-23 00:00:00 Completed [facility] SARS-COV-2 COVID-19 MODERNA VACCINE 2020-05-23 00:00:00 Completed [facility] SARS-COV-2 COVID-19 MODERNA VACCINE 2020-05-23 00:00:00 Completed [facility] SARS-COV-2 COVID-19 MODERNA VACCINE 2020-05-23 00:00:00 Completed [facility] SARS-COV-2 COVID-19 MODERNA VACCINE 2020-05-23 00:00:00 Completed [facility] SARS-COV-2 COVID-19 MODERNA VACCINE 2020-05-23 00:00:00 Completed [facility] SARS-COV-2 COVID-19 MODERNA VACCINE 2020-05-23 00:00:00 Completed [facility] SARS-COV-2 COVID-19 MODERNA VACCINE 2020-05-23 00:00:00 Completed [facility] SARS-COV-2 COVID-19 MODERNA VACCINE 2020-05-23 00:00:00 Completed [facility] SARS-COV-2 COVID-19 MODERNA VACCINE 2020-05-23 00:00:00 Completed [facility] SARS-COV-2 COVID-19 MODERNA VACCINE 2020-05-23 00:00:00 Completed [facility] SARS-COV-2 COVID-19 MODERNA VACCINE 2020-05-23 00:00:00 Completed [facility] SARS-COV-2 COVID-19 MODERNA VACCINE 2020-05-23 00:00:00 Completed [facility] SARS-COV-2 COVID-19 MODERNA VACCINE 2020-05-23 00:00:00 Completed [facility] SARS-COV-2 COVID-19 MODERNA VACCINE 2020-05-23 00:00:00 Completed [facility] SARS-COV-2 COVID-19 MODERNA VACCINE 2020-05-23 00:00:00 Completed [facility] SARS-COV-2 COVID-19 MODERNA VACCINE 2020-05-23 00:00:00 Completed [facility] SARS-COV-2 COVID-19 MODERNA VACCINE 2020-05-23 00:00:00 Completed [facility] TDAP 2020-05-08 00:00:00 Completed [facility] TDAP 2020-05-08 00:00:00 Completed [facility] TDAP 2020-05-08 00:00:00 Completed [facility] TDAP 2020-05-08 00:00:00 Completed [facility] TDAP 2020-05-08 00:00:00 Completed [facility] TDAP 2020-05-08 00:00:00 Completed [facility] TDAP 2020-05-08 00:00:00 Completed [facility] TDAP 2020-05-08 00:00:00 Completed [facility] TDAP 2020-05-08 00:00:00 Completed [facility] TDAP 2020-05-08 00:00:00 Completed [facility] TDAP 2020-05-08 00:00:00 Completed [facility] TDAP 2020-05-08 00:00:00 Completed [facility] TDAP 2020-05-08 00:00:00 Completed [facility] TDAP 2020-05-08 00:00:00 Completed [facility] TDAP 2020-05-08 00:00:00 Completed [facility] TDAP 2020-05-08 00:00:00 Completed [facility] TDAP 2020-05-08 00:00:00 Completed [facility] TDAP 2020-05-08 00:00:00 Completed [facility] TDAP 2020-05-08 00:00:00 Completed [facility] TDAP 2020-05-08 00:00:00 Completed [facility] TDAP 2020-05-08 00:00:00 Completed [facility] TDAP 2020-05-08 00:00:00 Completed [facility] TDAP 2020-05-08 00:00:00 Completed [facility] TDAP 2020-05-08 00:00:00 Completed [facility] TDAP 2020-05-08 00:00:00 Completed [facility] TDAP 2020-05-08 00:00:00 Completed [facility] TDAP 2020-05-08 00:00:00 Completed [facility] TDAP 2020-05-08 00:00:00 Completed [facility] TDAP 2020-05-08 00:00:00 Completed [facility] TDAP 2020-05-08 00:00:00 Completed [facility] TDAP 2020-05-08 00:00:00 Completed [facility] TDAP 2020-05-08 00:00:00 Completed [facility] TDAP 2020-05-08 00:00:00 Completed [facility] TDAP 2020-05-08 00:00:00 Completed [facility] TDAP 2020-05-08 00:00:00 Completed [facility] TDAP 2020-05-08 00:00:00 Completed [facility] TDAP 2020-05-08 00:00:00 Completed [facility] TDAP 2020-05-08 00:00:00 Completed [facility] TDAP 2020-05-08 00:00:00 Completed [facility] TDAP 2020-05-08 00:00:00 Completed [facility] TDAP 2020-05-08 00:00:00 Completed [facility] MMR 2018-10-13 00:00:00 Completed [facility] MMR 2018-10-13 00:00:00 Completed [facility] MMR 2018-10-13 00:00:00 Completed [facility] MMR 2018-10-13 00:00:00 Completed [facility] MMR 2018-10-13 00:00:00 Completed [facility] MMR 2018-10-13 00:00:00 Completed [facility] MMR 2018-10-13 00:00:00 Completed [facility] MMR 2018-10-13 00:00:00 Completed [facility] MMR 2018-10-13 00:00:00 Completed [facility] MMR 2018-10-13 00:00:00 Completed [facility] MMR 2018-10-13 00:00:00 Completed [facility] MMR 2018-10-13 00:00:00 Completed [facility] MMR 2018-10-13 00:00:00 Completed [facility] MMR 2018-10-13 00:00:00 Completed [facility] MMR 2018-10-13 00:00:00 Completed [facility] MMR 2018-10-13 00:00:00 Completed [facility] MMR 2018-10-13 00:00:00 Completed [facility] MMR 2018-10-13 00:00:00 Completed [facility] MMR 2018-10-13 00:00:00 Completed [facility] MMR 2018-10-13 00:00:00 Completed [facility] MMR 2018-10-13 00:00:00 Completed [facility] MMR 2018-10-13 00:00:00 Completed [facility] MMR 2018-10-13 00:00:00 Completed [facility] MMR 2018-10-13 00:00:00 Completed [facility] MMR 2018-10-13 00:00:00 Completed [facility] MMR 2018-10-13 00:00:00 Completed [facility] MMR 2018-10-13 00:00:00 Completed [facility] MMR 2018-10-13 00:00:00 Completed [facility] MMR 2018-10-13 00:00:00 Completed [facility] MMR 2018-10-13 00:00:00 Completed [facility] MMR 2018-10-13 00:00:00 Completed [facility] MMR 2018-10-13 00:00:00 Completed [facility] MMR 2018-10-13 00:00:00 Completed [facility] MMR 2018-10-13 00:00:00 Completed [facility] MMR 2018-10-13 00:00:00 Completed [facility] MMR 2018-10-13 00:00:00 Completed [facility] MMR 2018-10-13 00:00:00 Completed [facility] MMR 2018-10-13 00:00:00 Completed [facility] MMR 2018-10-13 00:00:00 Completed [facility] MMR 2018-10-13 00:00:00 Completed [facility] MMR 2018-10-13 00:00:00 Completed [facility] MMR 2018-10-13 00:00:00 Completed [facility] MMR 2018-10-13 00:00:00 Completed [facility] MMR 2018-10-13 00:00:00 Completed [facility] MMR 2018-10-13 00:00:00 Completed [facility] MMR 2018-10-13 00:00:00 Completed [facility] MMR 2018-10-13 00:00:00 Completed [facility] MMR 2018-10-13 00:00:00 Completed [facility] MMR 2018-10-13 00:00:00 Completed [facility] MMR 2018-10-13 00:00:00 Completed [facility] MMR 2018-10-13 00:00:00 Completed [facility] MMR 2018-10-13 00:00:00 Completed [facility] MMR 2018-10-13 00:00:00 Completed [facility] MMR 2018-10-13 00:00:00 Completed [facility] MMR 2018-10-13 00:00:00 Completed [facility] MMR 2018-10-13 00:00:00 Completed [facility] MMR 2018-10-13 00:00:00 Completed [facility] MMR 2018-10-13 00:00:00 Completed [facility] MMR 2018-10-13 00:00:00 Completed [facility] MMR 2018-10-13 00:00:00 Completed [facility] MMR 2018-10-13 00:00:00 Completed [facility] MMR 2018-10-13 00:00:00 Completed [facility] MMR 2018-10-13 00:00:00 Completed [facility] MMR 2018-10-13 00:00:00 Completed [facility] MMR 2018-10-13 00:00:00 Completed [facility] MMR 2018-10-13 00:00:00 Completed [facility] MMR 2018-10-13 00:00:00 Completed [facility] MMR 2018-10-13 00:00:00 Completed [facility] TDAP (ADACEL) VACCINE 2018-07-29 00:00:00 Completed [facility] TDAP (ADACEL) VACCINE 2018-07-29 00:00:00 Completed [facility] TDAP (ADACEL) VACCINE 2018-07-29 00:00:00 Completed [facility] TDAP (ADACEL) VACCINE 2018-07-29 00:00:00 Completed [facility] TDAP (ADACEL) VACCINE 2018-07-29 00:00:00 Completed [facility] TDAP (ADACEL) VACCINE 2018-07-29 00:00:00 Completed [facility] TDAP (ADACEL) VACCINE 2018-07-29 00:00:00 Completed [facility] TDAP (ADACEL) VACCINE 2018-07-29 00:00:00 Completed [facility] TDAP (ADACEL) VACCINE 2018-07-29 00:00:00 Completed [facility] TDAP (ADACEL) VACCINE 2018-07-29 00:00:00 Completed [facility] TDAP (ADACEL) VACCINE 2018-07-29 00:00:00 Completed [facility] TDAP (ADACEL) VACCINE 2018-07-29 00:00:00 Completed [facility] TDAP (ADACEL) VACCINE 2018-07-29 00:00:00 Completed [facility] TDAP (ADACEL) VACCINE 2018-07-29 00:00:00 Completed [facility] TDAP (ADACEL) VACCINE 2018-07-29 00:00:00 Completed [facility] TDAP (ADACEL) VACCINE 2018-07-29 00:00:00 Completed [facility] TDAP (ADACEL) VACCINE 2018-07-29 00:00:00 Completed [facility] TDAP (ADACEL) VACCINE 2018-07-29 00:00:00 Completed [facility] TDAP (ADACEL) VACCINE 2018-07-29 00:00:00 Completed [facility] TDAP (ADACEL) VACCINE 2018-07-29 00:00:00 Completed [facility] TDAP (ADACEL) VACCINE 2018-07-29 00:00:00 Completed [facility] TDAP (ADACEL) VACCINE 2018-07-29 00:00:00 Completed [facility] TDAP (ADACEL) VACCINE 2018-07-29 00:00:00 Completed [facility] TDAP (ADACEL) VACCINE 2018-07-29 00:00:00 Completed [facility] TDAP (ADACEL) VACCINE 2018-07-29 00:00:00 Completed [facility] TDAP (ADACEL) VACCINE 2018-07-29 00:00:00 Completed [facility] TDAP (ADACEL) VACCINE 2018-07-29 00:00:00 Completed [facility] TDAP (ADACEL) VACCINE 2018-07-29 00:00:00 Completed [facility] TDAP (ADACEL) VACCINE 2018-07-29 00:00:00 Completed [facility] TDAP (ADACEL) VACCINE 2018-07-29 00:00:00 Completed [facility] TDAP (ADACEL) VACCINE 2018-07-29 00:00:00 Completed [facility] TDAP (ADACEL) VACCINE 2018-07-29 00:00:00 Completed [facility] TDAP (ADACEL) VACCINE 2018-07-29 00:00:00 Completed [facility] TDAP (ADACEL) VACCINE 2018-07-29 00:00:00 Completed [facility] TDAP (ADACEL) VACCINE 2018-07-29 00:00:00 Completed [facility] TDAP (ADACEL) VACCINE 2018-07-29 00:00:00 Completed [facility] TDAP (ADACEL) VACCINE 2018-07-29 00:00:00 Completed [facility] TDAP (ADACEL) VACCINE 2018-07-29 00:00:00 Completed [facility] TDAP (ADACEL) VACCINE 2018-07-29 00:00:00 Completed [facility] TDAP (ADACEL) VACCINE 2018-07-29 00:00:00 Completed [facility] TDAP (ADACEL) VACCINE 2018-07-29 00:00:00 Completed [facility] TDAP (ADACEL) VACCINE 2018-07-29 00:00:00 Completed [facility] TDAP (ADACEL) VACCINE 2018-07-29 00:00:00 Completed [facility] TDAP (ADACEL) VACCINE 2018-07-29 00:00:00 Completed [facility] TDAP (ADACEL) VACCINE 2018-07-29 00:00:00 Completed [facility] TDAP (ADACEL) VACCINE 2018-07-29 00:00:00 Completed [facility] TDAP (ADACEL) VACCINE 2018-07-29 00:00:00 Completed [facility] TDAP (ADACEL) VACCINE 2018-07-29 00:00:00 Completed [facility] TDAP (ADACEL) VACCINE 2018-07-29 00:00:00 Completed [facility] TDAP (ADACEL) VACCINE 2018-07-29 00:00:00 Completed [facility] TDAP (ADACEL) VACCINE 2018-07-29 00:00:00 Completed [facility] TDAP (ADACEL) VACCINE 2018-07-29 00:00:00 Completed [facility] TDAP (ADACEL) VACCINE 2018-07-29 00:00:00 Completed [facility] TDAP (ADACEL) VACCINE 2018-07-29 00:00:00 Completed [facility] TDAP (ADACEL) VACCINE 2018-07-29 00:00:00 Completed [facility] TDAP (ADACEL) VACCINE 2018-07-29 00:00:00 Completed [facility] TDAP (ADACEL) VACCINE 2018-07-29 00:00:00 Completed [facility] TDAP (ADACEL) VACCINE 2018-07-29 00:00:00 Completed [facility] TDAP (ADACEL) VACCINE 2018-07-29 00:00:00 Completed [facility] TDAP (ADACEL) VACCINE 2018-07-29 00:00:00 Completed [facility] TDAP (ADACEL) VACCINE 2018-07-29 00:00:00 Completed [facility] TDAP (ADACEL) VACCINE 2018-07-29 00:00:00 Completed [facility] TDAP (ADACEL) VACCINE 2018-07-29 00:00:00 Completed [facility] TDAP (ADACEL) VACCINE 2018-07-29 00:00:00 Completed [facility] TDAP (ADACEL) VACCINE 2018-07-29 00:00:00 Completed [facility] TDAP (ADACEL) VACCINE 2018-07-29 00:00:00 Completed [facility] TDAP (ADACEL) VACCINE 2018-07-29 00:00:00 Completed [facility] TDAP (ADACEL) VACCINE 2018-07-29 00:00:00 Completed [facility] TDAP (ADACEL) VACCINE 2018-07-29 00:00:00 Completed [facility] TDAP (ADACEL) VACCINE 2018-07-29 00:00:00 Completed [facility] TDAP (ADACEL) VACCINE 2018-07-29 00:00:00 Completed [facility] TDAP (ADACEL) VACCINE 2018-07-29 00:00:00 Completed [facility] TDAP (ADACEL) VACCINE 2018-07-29 00:00:00 Completed [facility] TDAP (ADACEL) VACCINE 2018-07-29 00:00:00 Completed [facility] TDAP (ADACEL) VACCINE 2018-07-29 00:00:00 Completed [facility] TDAP (ADACEL) VACCINE 2018-07-29 00:00:00 Completed [facility] TDAP (ADACEL) VACCINE 2018-07-29 00:00:00 Completed [facility] TDAP (ADACEL) VACCINE 2018-07-29 00:00:00 Completed [facility] TDAP (ADACEL) VACCINE 2018-07-29 00:00:00 Completed [facility] TDAP (ADACEL) VACCINE 2018-07-29 00:00:00 Completed [facility] TDAP (ADACEL) VACCINE 2018-07-29 00:00:00 Completed [facility] TDAP 2009-02-17 00:00:00 Completed [facility] TDAP 2009-02-17 00:00:00 Completed [facility] TDAP 2009-02-17 00:00:00 Completed [facility] TDAP 2009-02-17 00:00:00 Completed [facility] TDAP 2009-02-17 00:00:00 Completed [facility] TDAP 2009-02-17 00:00:00 Completed [facility] TDAP 2009-02-17 00:00:00 Completed [facility] TDAP 2009-02-17 00:00:00 Completed [facility] TDAP 2009-02-17 00:00:00 Completed [facility] TDAP 2009-02-17 00:00:00 Completed [facility] TDAP 2009-02-17 00:00:00 Completed [facility] TDAP 2009-02-17 00:00:00 Completed [facility] TDAP 2009-02-17 00:00:00 Completed [facility] TDAP 2009-02-17 00:00:00 Completed [facility] TDAP 2009-02-17 00:00:00 Completed [facility] TDAP 2009-02-17 00:00:00 Completed [facility] TDAP 2009-02-17 00:00:00 Completed [facility] TDAP 2009-02-17 00:00:00 Completed [facility] TDAP 2009-02-17 00:00:00 Completed [facility] TDAP 2009-02-17 00:00:00 Completed [facility] TDAP 2009-02-17 00:00:00 Completed [facility] TDAP 2009-02-17 00:00:00 Completed [facility] TDAP 2009-02-17 00:00:00 Completed [facility] TDAP 2009-02-17 00:00:00 Completed [facility] TDAP 2009-02-17 00:00:00 Completed [facility] TDAP 2009-02-17 00:00:00 Completed [facility] TDAP 2009-02-17 00:00:00 Completed [facility] TDAP 2009-02-17 00:00:00 Completed [facility] TDAP 2009-02-17 00:00:00 Completed [facility] TDAP 2009-02-17 00:00:00 Completed [facility] TDAP 2009-02-17 00:00:00 Completed [facility] TDAP 2009-02-17 00:00:00 Completed [facility] TDAP 2009-02-17 00:00:00 Completed [facility] TDAP 2009-02-17 00:00:00 Completed [facility] Tdap 2009-02-17 00:00:00 Completed [facility] Tdap 2009-02-17 00:00:00 Completed [facility] Tdap 2009-02-17 00:00:00 Completed [facility] Tdap 2009-02-17 00:00:00 Completed [facility] Tdap 2009-02-17 00:00:00 Completed [facility] Tdap 2009-02-17 00:00:00 Completed [facility] Tdap 2009-02-17 00:00:00 Completed [facility] Tdap 2009-02-17 00:00:00 Completed [facility] Tdap 2009-02-17 00:00:00 Completed [facility] Tdap 2009-02-17 00:00:00 Completed [facility] Tdap 2009-02-17 00:00:00 Completed [facility] Tdap 2009-02-17 00:00:00 Completed [facility] Tdap 2009-02-17 00:00:00 Completed [facility] Tdap 2009-02-17 00:00:00 Completed [facility] Tdap 2009-02-17 00:00:00 Completed [facility] Tdap 2009-02-17 00:00:00 Completed [facility] Tdap 2009-02-17 00:00:00 Completed [facility] Tdap 2009-02-17 00:00:00 Completed [facility] Tdap 2009-02-17 00:00:00 Completed [facility] Tdap 2009-02-17 00:00:00 Completed [facility] Tdap 2009-02-17 00:00:00 Completed [facility] TDAP 2009-02-17 00:00:00 Completed [facility] TDAP 2009-02-17 00:00:00 Completed [facility] TDAP 2009-02-17 00:00:00 Completed [facility] TDAP 2009-02-17 00:00:00 Completed [facility] TDAP 2009-02-17 00:00:00 Completed [facility] TDAP 2009-02-17 00:00:00 Completed [facility] TDAP 2009-02-17 00:00:00 Completed [facility] TDAP 2009-02-17 00:00:00 Completed [facility] TDAP 2009-02-17 00:00:00 Completed [facility] TDAP 2009-02-17 00:00:00 Completed [facility] TDAP 2009-02-17 00:00:00 Completed [facility] TDAP 2009-02-17 00:00:00 Completed [facility] TDAP 2009-02-17 00:00:00 Completed [facility] TDAP 2009-02-17 00:00:00 Completed [facility] TDAP 2009-02-17 00:00:00 Completed [facility] TDAP 2009-02-17 00:00:00 Completed [facility] TDAP 2009-02-17 00:00:00 Completed [facility] TDAP 2009-02-17 00:00:00 Completed [facility] TDAP 2009-02-17 00:00:00 Completed [facility] TDAP 2009-02-17 00:00:00 Completed [facility] TDAP 2009-02-17 00:00:00 Completed [facility] TDAP 2009-02-17 00:00:00 Completed [facility] TDAP 2009-02-17 00:00:00 Completed [facility] TDAP 2009-02-17 00:00:00 Completed [facility] TDAP 2009-02-17 00:00:00 Completed [facility] TDAP 2009-02-17 00:00:00 Completed [facility] TDAP Unknown Completed [facility] TDAP (ADACEL) VACCINE Unknown Completed [facility] MMR Unknown Completed [facility] TDAP Unknown Completed [facility] TDAP (ADACEL) VACCINE Unknown Completed [facility] MMR Unknown Completed [facility] TDAP Unknown Completed [facility] TDAP (ADACEL) VACCINE Unknown Completed [facility] MMR Unknown Completed [facility] TDAP Unknown Completed [facility] TDAP (ADACEL) VACCINE Unknown Completed [facility] MMR Unknown Completed [facility] TDAP Unknown Completed [facility] TDAP (ADACEL) VACCINE Unknown Completed [facility] MMR Unknown Completed [facility] TDAP Unknown Completed [facility] TDAP (ADACEL) VACCINE Unknown Completed [facility] MMR Unknown Completed [facility] Vital Signs Vital Name Observation Time Observation Value Comments S ource Systolic blood pressure 2020-08-30 13:38:00 125 [facility] 2020-08-30 13:38:00 80 mm[facility]Hg[facility] Heart rate 2020-08-30 13:38:00 67 /min [facility] Body temperature 2020-08-30 13:38:00 36.5 Anel [facility] Respiratory rate 2020-08-30 13:38:00 16 /min [facility] Body height 2020-08-30 13:38:00 170.2 cm [facility] Body weight 2020-08-30 13:38:00 103.023 kg [facility] BMI 2020-08-30 13:38:00 35.57 kg/m2 [facility] Systolic blood pressure 2020-08-07 14:31:00 118 mm[Hg[facility] Diastolic blood pressure 2020-08-07 14:31:00 79 mm[Hg[facility] Heart rate 2020-08-07 14:31:00 60 /min [facility] Body temperature 2020-08-07 14:31:00 36.83 Anel [facility] Respiratory rate 2020-08-07 14:31:00 16 /min [facility] Body height 2020-08-07 14:31:00 170.2 cm [facility] Body weight 2020-08-07 14:31:00 101.379 kg [facility] BMI 2020-08-07 14:31:00 35.01 kg/m2 [facility] Systolic blood pressure 2020-07-16 12:54:00 124 mm[Hg[facility] Diastolic blood pressure 2020-07-16 12:54:00 74 mm[Hg[facility] Heart rate 2020-07-16 12:54:00 67 /min [facility] Body temperature 2020-07-16 12:54:00 36.22 Anel [facility] Respiratory rate 2020-07-16 12:54:00 18 /min [facility] Oxygen saturation in Arterial blood by Pulse oximetry 2020-07-16 12:54:00 97 /min [facility] Systolic blood pressure 2020-07-15 15:20:00 120 mm[Hg] [facility] Diastolic blood pressure 2020-07-15 15:20:00 53 mm[Hg[facility] Heart rate 2020-07-15 15:20:00 85 /min [facility] Respiratory rate 2020-07-15 15:20:00 18 /min [facility] Oxygen saturation in Arterial blood by Pulse oximetry 2020-07-15 15:20:00 100 /min [facility] Body temperature 2020-07-15 14:20:00 36.72 Anel [facility] Systolic blood pressure 2020-07-10 19:56:00 130 mm[Hg] [facility] Diastolic blood pressure 2020-07-10 19:56:00 81 mm[Hg] [facility] Heart rate 2020-07-10 19:56:00 87 /[facility] 2020-07-10 19:56:00 36.78 Anel [facility] Respiratory rate 2020-07-10 19:56:00 16 /min [facility] Body height 2020-07-10 19:56:00 170.2 cm [facility] Body weight 2020-07-10 19:56:00 111.613 kg [facility] BMI 2020-07-10 19:56:00 38.54 kg/m2 [facility] Systolic blood pressure 2020-07-06 19:35:00 132 mm[Hg[facility] Diastolic blood pressure 2020-07-06 19:35:00 72 mm[Hg] [facility] Heart rate 2020-07-06 19:35:00 98 /min [facility] 2020-07-06 19:35:00 36.78 Anel [facility] Respiratory rate 2020-07-06 19:35:00 16 /min [facility] Body height 2020-07-06 19:35:00 170.2 cm [facility] Body weight 2020-07-06 19:35:00 110.224 kg [facility] BMI 2020-07-06 19:35:00 38.06 kg/m2 [facility] Systolic blood pressure 2020-07-03 19:46:00 125 mm[Hg[facility] Di[facility] blood pressure 2020-07-03 19:46:00 79 mm[Hg[facility] Heart rate 2020-07-03 19:46:00 99 /min [facility] Body temperature 2020-07-03 19:46:00 36.89 Anel [facility] Respiratory rate 2020-07-03 19:46:00 16 /min [facility] Body height 2020-07-03 19:46:00 170.2 [facility] 2020-07-03 19:46:00 110.309 kg [facility] BMI 2020-07-03 19:46:00 38.09 kg/m2 [facility] Systolic blood pressure 2020-06-29 18:35:00 135 mm[Hg[facility] Di[facility] blood pressure 2020-06-29 18:35:00 71 mm[Hg] [facility] Heart rate 2020-06-29 18:35:00 94 /min [facility] Body temperature 2020-06-29 18:35:00 36.44 Anel [facility] Respiratory rate 2020-06-29 18:35:00 16 /min [facility] Body height 2020-06-29 18:35:00 170.2 cm [facility] Body weight 2020-06-29 18:35:00 109.487 kg [facility] BMI 2020-06-29 18:35:00 37.80 kg/m2 [facility] Systolic blood pressure 2020-06-26 19:04:00 137 mm[Hg[facility] Diastolic blood pressure 2020-06-26 19:04:00 79 mm[Hg[facility] Heart rate 2020-06-26 19:04:00 97 /min [facility] Body temperature 2020-06-26 19:04:00 36.89 Anel [facility] Respiratory rate 2020-06-26 19:04:00 16 /min [facility] Body height 2020-06-26 19:04:00 170.2 cm [facility] Body weight 2020-06-26 19:04:00 110.252 kg [facility] BMI 2020-06-26 19:04:00 38.07 kg/m2 [facility] Systolic blood pressure 2020-06-22 14:09:00 127 mm[Hg[facility] Di[facility] blood pressure 2020-06-22 14:09:00 72 mm[Hg[facility] Heart rate 2020-06-22 14:09:00 94 /min [facility] Body temperature 2020-06-22 14:09:00 36.67 Anel [facility] Respiratory rate 2020-06-22 14:09:00 16 /min [facility] Body height 2020-06-22 14:09:00 170.2 cm [facility] Body weight 2020-06-22 14:09:00 108.977 kg [facility] BMI 2020-06-22 14:09:00 37.63 kg/m2 [facility] Heart rate 2020-06-13 23:55:00 105 /min [facility] Oxygen saturation in Arterial blood by Pulse oximetry 2020-06-13 23:55:00 100 /min [facility] Systolic blood pressure 2020-06-13 23:30:00 138 mm[Hg] [facility] Diastolic blood pressure 2020-06-13 23:30:00 76 mm[Hg] [facility] Body temperature 2020-06-13 23:17:00 36.89 Anel [facility] Respiratory rate 2020-06-13 23:17:00 18 /min [facility] Body height 2020-06-13 23:17:00 170.2 cm [facility] Body weight 2020-06-13 23:17:00 108.773 kg [facility] BMI 2020-06-13 23:17:00 37.56 kg/m2 [facility] Systolic blood pressure 2020-06-06 00:45:00 146 mm[Hg[facility] Diastolic blood pressure 2020-06-06 00:45:00 84 mm[Hg] [facility] Heart rate 2020-06-06 00:45:00 99 /min [facility] Oxygen saturation in Arterial blood by Pulse oximetry 2020-06-06 00:45:00 100 /min [facility] Body temperature 2020-06-05 23:36:00 37.06 Anel [facility] Respiratory rate 2020-06-05 23:36:00 18 /min [facility] Body height 2020-06-05 23:36:00 170.2 cm [facility] Body weight 2020-06-05 23:36:00 109.045 kg [facility] BMI 2020-06-05 23:36:00 37.65 kg/m2 [facility] Heart rate 2020-05-31 02:00:00 99 /min [facility] Oxygen saturation in Arterial blood by Pulse oximetry 2020-05-31 01:45:00 99 /min [facility] Systolic blood pressure 2020-05-31 01:15:00 134 mm[Hg[facility] Diastolic blood pressure 2020-05-31 01:15:00 70 mm[Hg] [facility] Body temperature 2020-05-31 01:15:00 36.83 Anel [facility] Respiratory rate 2020-05-31 01:15:00 20 /min [facility] Body height 2020-05-31 01:15:00 170.2 cm [facility] Body weight 2020-05-31 01:15:00 108.863 kg [facility] BMI 2020-05-31 01:15:00 37.59 kg/m2 [facility] Systolic blood pressure 2020-05-22 15:40:00 124 mm[Hg[facility] Diastolic blood pressure 2020-05-22 15:40:00 72 mm[Hg] [facility] Heart rate 2020-05-22 15:40:00 90 /min [facility] Body temperature 2020-05-22 15:40:00 36.89 Anel [facility] Respiratory rate 2020-05-22 15:40:00 16 /min [facility] Body height 2020-05-22 15:40:00 170.2 cm [facility] Body weight 2020-05-22 15:40:00 107.134 kg [facility] BMI 2020-05-22 15:40:00 36.99 kg/m2 [facility] Systolic blood pressure 2020-05-08 14:33:00 127 mm[Hg[facility] Diastolic blood pressure 2020-05-08 14:33:00 74 mm[Hg[facility] Heart rate 2020-05-08 14:32:00 99 /min [facility] Body temperature 2020-05-08 14:32:00 36.61 Anel [facility] Respiratory rate 2020-05-08 14:32:00 16 /min [facility] Body height 2020-05-08 14:32:00 170.2 cm [facility] Body weight 2020-05-08 14:32:00 107.106 kg [facility] BMI 2020-05-08 14:32:00 36.98 kg/m2 [facility] Systolic blood pressure 2020-04-25 15:50:00 139 mm[Hg[facility] Diastolic blood pressure 2020-04-25 15:50:00 83 mm[Hg[facility] Heart rate 2020-04-25 15:06:00 111 /min [facility] Body temperature 2020-04-25 15:06:00 36.72 Anel [facility] Respiratory rate 2020-04-25 15:06:00 16 /min [facility] Body height 2020-04-25 15:06:00 170.2 cm [facility] Body weight 2020-04-25 15:06:00 106.17 kg [facility] BMI 2020-04-25 15:06:00 36.66 kg/m2 [facility] Systolic blood pressure 2020-04-20 16:25:00 123 mm[Hg[facility] Diastolic blood pressure 2020-04-20 16:25:00 68 mm[Hg] [facility] Heart rate 2020-04-20 16:25:00 88 /min [facility] Body temperature 2020-04-20 16:25:00 36.61 Anel [facility] Respiratory rate 2020-04-20 16:25:00 16 /min [facility] Body height 2020-04-20 16:25:00 170.2 cm [facility] Body weight 2020-04-20 16:25:00 105.858 kg [facility] BMI 2020-04-20 16:25:00 36.55 kg/m2 [facility] Systolic blood pressure 2020-02-29 19:10:00 134 mm[Hg[facility] Diastolic blood pressure 2020-02-29 19:10:00 80 mm[Hg[facility] Heart rate 2020-02-29 19:10:00 100 /min [facility] Body temperature 2020-02-29 19:10:00 36.72 Anel [facility] Respiratory rate 2020-02-29 19:10:00 16 /min [facility] Body height 2020-02-29 19:10:00 170.2 cm [facility] Body weight 2020-02-29 19:10:00 100.018 kg [facility] BMI 2020-02-29 19:10:00 34.54 kg/m2 [facility] Systolic blood pressure 2020-02-01 19:50:00 138 mm[Hg[facility] Di[facility] blood pressure 2020-02-01 19:50:00 73 mm[Hg] [facility] Heart rate 2020-02-01 19:50:00 86 /min [facility] Body temperature 2020-02-01 19:50:00 36.83 Anel [facility] Respiratory rate 2020-02-01 19:50:00 16 /min [facility] Body height 2020-02-01 19:50:00 170.2 cm [facility] Body weight 2020-02-01 19:50:00 98.544 kg [facility] BMI 2020-02-01 19:50:00 34.03 kg/m2 [facility] Systolic blood pressure 2020-01-04 20:39:00 135 mm[Hg[facility] Diastolic blood pressure 2020-01-04 20:39:00 75 mm[Hg] [facility] Heart rate 2020-01-04 20:38:00 94 /min [facility] Body temperature 2020-01-04 20:38:00 36.5 Anel [facility] Respiratory rate 2020-01-04 20:38:00 16 /min [facility] Body height 2020-01-04 20:38:00 170.2 cm [facility] Body weight 2020-01-04 20:38:00 99.139 kg [facility] BMI 2020-01-04 20:38:00 34.23 kg/m2 [facility] Systolic blood pressure 2019-12-03 20:12:00 128 mm[Hg[facility] Diastolic blood pressure 2019-12-03 20:12:00 68 mm[Hg] [facility] Heart rate 2019-12-03 19:16:00 90 /min [facility] Body temperature 2019-12-03 19:16:00 36.61 Anel [facility] Respiratory rate 2019-12-03 19:16:00 18 /min [facility] Body height 2019-12-03 19:16:00 170.2 cm [facility] Body weight 2019-12-03 19:16:00 102.059 kg [facility] BMI 2019-12-03 19:16:00 35.24 kg/m2 [facility] Oxygen saturation in Arterial blood by Pulse oximetry 2019-12-03 19:16:00 100 /min [facility] Systolic blood pressure 2019-03-12 20:41:00 132 mm[Hg[facility] Diastolic blood pressure 2019-03-12 20:41:00 73 mm[Hg] [facility] Heart rate 2019-03-12 20:41:00 95 /min [facility] Body temperature 2019-03-12 20:41:00 36.78 Anel [facility] Respiratory rate 2019-03-12 20:41:00 16 /min [facility] Body height 2019-03-12 20:41:00 170.2 cm [facility] Body weight 2019-03-12 20:41:00 89.841 kg [facility] BMI 2019-03-12 20:41:00 31.02 kg/m2 [facility] Systolic blood pressure 2019-03-12 20:41:00 132 mm[Hg] [facility] Diastolic blood pressure 2019-03-12 20:41:00 73 mm[Hg] [facility] Heart rate 2019-03-12 20:41:00 95 /min [facility] Body temperature 2019-03-12 20:41:00 36.78 Anel [facility] Respiratory rate 2019-03-12 20:41:00 16 /min [facility] Body height 2019-03-12 20:41:00 170.2 cm [facility] Body weight 2019-03-12 20:41:00 89.841 kg [facility] BMI 2019-03-12 20:41:00 31.02 kg/m2 [facility] Systolic blood pressure 2018-11-02 14:26:00 113 mm[Hg[facility] Diastolic blood pressure 2018-11-02 14:26:00 67 mm[Hg] [facility] Heart rate 2018-11-02 14:26:00 50 /min [facility] Body temperature 2018-11-02 14:26:00 36.61 Anel [facility] Respiratory rate 2018-11-02 14:26:00 16 /min [facility] Body height 2018-11-02 14:26:00 170.2 cm [facility] Body weight 2018-11-02 14:26:00 86.779 kg [facility] BMI 2018-11-02 14:26:00 29.96 kg/m2 [facility] Systolic blood pressure 2018-10-13 13:00:00 125 mm[Hg[facility] Diastolic blood pressure 2018-10-13 13:00:00 68 mm[Hg] [facility] Heart rate 2018-10-13 13:00:00 69 /min [facility] Body temperature 2018-10-13 13:00:00 36.83 Anel [facility] Respiratory rate 2018-10-13 13:00:00 18 /min [facility] Oxygen saturation in Arterial blood by Pulse oximetry 2018-10-13 13:00:00 98 /min [facility] Body height 2018-10-11 14:30:00 170.2 cm [facility] Body weight 2018-10-11 14:30:00 96.48 kg [facility] BMI 2018-10-11 14:30:00 33.31 kg/m2 [facility] Systolic blood pressure 2018-10-07 16:39:00 129 mm[Hg[facility] Diastolic blood pressure 2018-10-07 16:39:00 71 mm[Hg] [facility] Heart rate 2018-10-07 16:39:00 86 /min [facility] Body temperature 2018-10-07 16:39:00 36.67 Anel [facility] Respiratory rate 2018-10-07 16:39:00 16 /min [facility] Body height 2018-10-07 16:39:00 170.2 cm [facility] Body weight 2018-10-07 16:39:00 96.673 kg [facility] BMI 2018-10-07 16:39:00 33.38 kg/m2 [facility] Systolic blood pressure 2018-09-30 15:59:00 125 mm[Hg[facility] Diastolic blood pressure 2018-09-30 15:59:00 70 mm[Hg] [facility] Heart rate 2018-09-30 15:59:00 82 /min [facility] Body temperature 2018-09-30 15:59:00 36.17 Anel [facility] Respiratory rate 2018-09-30 15:59:00 16 /min [facility] Body height 2018-09-30 15:59:00 170.2 cm [facility] Body weight 2018-09-30 15:59:00 97.58 kg [facility] BMI 2018-09-30 15:59:00 33.69 kg/m2 [facility] Systolic blood pressure 2018-09-28 17:05:00 123 mm[Hg[facility] Di[facility] blood pressure 2018-09-28 17:05:00 75 mm[Hg] [facility] Heart rate 2018-09-28 17:05:00 106 /min [facility] Respiratory rate 2018-09-28 17:05:00 18 /min [facility] Body height 2018-09-28 17:05:00 170.2 cm [facility] Body weight 2018-09-28 17:05:00 95.618 kg [facility] BMI 2018-09-28 17:05:00 33.02 kg/m2 [facility] Oxygen saturation in Arterial blood by Pulse oximetry 2018-09-28 17:05:00 98 /min [facility] Systolic blood pressure 2018-09-23 14:12:00 132 mm[Hg[facility] Diastolic blood pressure 2018-09-23 14:12:00 73 mm[Hg] [facility] Heart rate 2018-09-23 14:12:00 99 /min [facility] Body temperature 2018-09-23 14:12:00 36.39 Anel [facility] Respiratory rate 2018-09-23 14:12:00 16 /min [facility] Body height 2018-09-23 14:12:00 170.2 cm [facility] Body weight 2018-09-23 14:12:00 95.482 kg [facility] BMI 2018-09-23 14:12:00 32.97 kg/m2 [facility] Procedures Procedure Date / Time Performed Performing Clinician Source CBC WITH DIFF 2020-07-16 10:20:00 Evelin Mckeon [facility] CBC WITH DIFF 2020-07-16 10:20:00 Evelin Mckeon [facility] TUBAL LIGATION 2020-07-15 22:29:00 Kate Rome [facility] VENOUS CORD GAS 2020-07-15 14:21:00 Evelyn [facility] VENOUS CORD GAS 2020-07-15 14:21:00 Evelyn [facility] POCT GLUCOSE (AUTOMATED) 2020-07-15 11:56:00 Naomi Rubi [facility] POCT GLUCOSE (AUTOMATED) 2020-07-15 11:56:00 Naomi Rubi [facility] POCT GLUCOSE (AUTOMATED) 2020-07-15 08:10:00 Ome Naomi richardson [facility] POCT GLUCOSE (AUTOMATED) 2020-07-15 08:10:00 Ome debra Naomi [facility] URINALYSIS 2020-07-15 06:21:00 Evelyn [facility] PROTEIN CREAT RATIO URINE RANDOM 2020-07-15 06:21:00 Evelyn San [facility] URINALYSIS 2020-07-15 06:21:00 Evelyn [facility] PROTEIN CREAT RATIO URINE RANDOM 2020-07-15 06:21:00 Evelyn San [facility] POCT GLUCOSE (AUTOMATED) 2020-07-15 04:48:00 Ome re Naomi [facility] POCT GLUCOSE (AUTOMATED) 2020-07-15 04:48:00 Ome re Olmitzalie [facility] HB ABO GROUPING 2020-07-15 04:42:00 Evelyn [facility] RHO (D) IMMUNE GLOBULIN 2020-07-15 04:42:00 Daylin Mckeon [facility] HB ABO GROUPING 2020-07-15 04:42:00 Evelyn [facility] RHO (D) IMMUNE GLOBULIN 2020-07-15 04:42:00 Daylin Mckeon [facility] SGOT (ASPARTATE AMINO TRANSFER) 2020-07-15 04:40:00 Evelyn San [facility] CREATININE 2020-07-15 04:40:00 Evelyn [facility] ALANINE AMINO TRANSFERASE(SGPT 2020-07-15 04:40:00 Evelyn San [facility] LACTATE DEHYDROGENASE 2020-07-15 04:40:00 Saurabh San [facility] URIC ACID 2020-07-15 04:40:00 Evelyn [facility] CBC WITH DIFF 2020-07-15 04:40:00 Evelyn San [facility] HEPATITIS B SURFACE ANTIGEN 2020-07-15 04:40:00 Evelyn San [facility] HIV 1/2 AG-AB WITH REFLEX 2020-07-15 04:40:00 Evelyn San [facility] GALV ONLY - SYPHILIS IGG/IGM 2020-07-15 04:40:00 Evelyn San [facility] SGOT (ASPARTATE AMINO TRANSFER) 2020-07-15 04:40:00 Evelyn San [facility] CREATININE 2020-07-15 04:40:00 Evelyn [facility] ALANINE AMINO TRANSFERASE(SGPT 2020-07-15 04:40:00 Evelyn Sna [facility] LACTATE DEHYDROGENASE 2020-07-15 04:40:00 Saurabh San [facility] URIC ACID 2020-07-15 04:40:00 Evelyn [facility] CBC WITH DIFF 2020-07-15 04:40:00 Evelyn San [facility] HEPATITIS B SURFACE ANTIGEN 2020-07-15 04:40:00 Evelyn San [facility] HIV 1/2 AG-AB WITH REFLEX 2020-07-15 04:40:00 Evelyn San [facility] GALV ONLY - SYPHILIS IGG/IGM 2020-07-15 04:40:00 Evelyn San [facility] COVID-19 (ID NOW RAPID TESTING) 2020-07-15 02:48:00 Naomi Souza [facility] COVID-19 (ID NOW RAPID TESTING) 2020-07-15 02:48:00 Naomi Souza [facility] LAB ONLY COVID INTERPRETATION 2020-07-15 02:48:00 Naomi Souza [facility] NON-STRESS TEST 2020-07-10 21:44:58 Jesús Lugo [facility] POCT URINALYSIS 2020-07-10 19:59:00 Lizette Lugo [facility] HOSPITAL ADMISSION 2020-07-08 05:01:00 Doctor Un assigned, [place] [facility] HOSPITAL ADMISSION 2020-07-08 05:01:00 Doctor Un assigned, [place] [facility] NON-STRESS TEST 2020-07-07 03:07:40 Aster Nava [facility] POCT URINALYSIS 2020-07-06 19:43:00 Lizette Lugo [facility] PATIENT QUESTIONNAIRE 2020-07-06 05:01:00 Doctor Unassigned, [place] [facility] PATIENT QUESTIONNAIRE 2020-07-06 05:01:00 Doctor Unassigned, [place] [facility] NON-STRESS TEST 2020-07-03 20:39:49 Jesús Lugo [facility] POCT URINALYSIS 2020-07-03 19:47:00 Lizette Lugo [facility] NON-STRESS TEST 2020-06-30 01:17:10 Aster Nava [facility] URINE CULTURE 2020-06-29 19:17:00 [facility] 2020-06-29 18:38:00 Lizette Lugo [facility] NON-STRESS TEST 2020-06-26 20:00:14 Jesús Lugo [facility] POCT URINALYSIS 2020-06-26 19:07:00 Lizette Lugo [facility] POCT URINALYSIS 2020-06-22 14:10:00 Lizette Lugo [facility] COVID-19 (ID NOW RAPID TESTING) 2020-06-13 23:40:00 Jaclyn Duval [facility] POCT GLUCOSE (AUTOMATED) 2020-06-13 23:39:00 Jaclyn Duval [facility] NOTICE OF PRIVACY PRACTICES 2020-06-13 23:05:21 Doctor Unassigned, [place] [facility] CONSENT/REFUSAL FOR DIAGNOSIS AND TREATMENT 2020-06-13 23:05:08 Doctor Unassigned, [place] [facility] CONSENT/REFUSAL FOR DIAGNOSIS AND TREATMENT 2020-06-05 23:13:27 Doctor Unassigned, [place] [facility] ASSIGNMENT OF BENEFITS 2020-05-31 00:57:40 Docto r Unassigned, [place] [facility] CONSENT/REFUSAL FOR DIAGNOSIS AND TREATMENT 2020-05-31 00:57:15 Doctor Unassigned, [place] [facility] POCT URINALYSIS 2020-05-22 15:41:00 Lizette Lugo [facility] PATIENT QUESTIONNAIRE 2020-05-22 05:01:00 Doctor Unassigned, [place] [facility] POCT URINALYSIS 2020-05-08 14:47:00 Lizette Lugo [facility] TDAP VACCINE, >11 YRS, IM 2020-05-08 14:31:42 Lizette Lugo [facility] STERILIZATION CONSENT FORM 2020-05-08 05:01:00 Doctor Unassigned, [place] [facility] POCT URINALYSIS 2020-04-20 16:26:00 Lizette Lugo [facility] POCT URINALYSIS 2020-02-29 19:14:00 Lizette Lugo [facility] CONSENT FOR SERUM MARKER SCREENING 2020-02-29 06:01:00 Doctor Unassigned, [place] [facility] POCT URINALYSIS 2020-02-01 20:26:00 Dayday Graham [facility] FIRST TRIMESTER ULTRASOUND 2020-01-26 19:45:00 Dayday Graham [facility] HB ABO GROUPING 2019-12-03 20:30:[address] [facility] GLUCOSE 1 HOUR POST PRANDIAL 2019-12-03 20:29:[address] [facility] THYROID STIMULATING HORMONE 2019-12-03 20:29:00 Mickey Paul [facility] COMP. METABOLIC PANEL (52947) 2019-12-03 20:29:00 Paul Arevalo [facility] CBC WITH DIFF 2019-12-03 20:29:00 Paul Arevalo [facility] HEPATITIS B SURFACE ANTIGEN 2019-12-03 20:29:00 Mickey Paul [facility] URINE CULTURE 2019-12-03 20:29:00 Paul Arevalo [facility] HIV 1/2 AG-AB WITH REFLEX 2019-12-03 20:29:00 Ryan wasserman Paul [facility] SARS-COV-2 IGG 2019-12-03 20:29:00 [facility] 2019-12-03 00:00:00 [facility] 2019-12-03 00:00:00 Elin Arevalo [facility] CONSENT/REFUSAL FOR DIAGNOSIS AND TREATMENT 2019-11-29 02:29:26 Doctor Unassigned, [place] [facility] CONSENT/REFUSAL FOR DIAGNOSIS AND TREATMENT 2019-03-12 20:07:12 Doctor Unassigned, [place] [facility] ASSIGNMENT OF BENEFITS 2019-03-12 20:06:52 Docto r Unassigned, [place] [facility] CBC WITH DIFFERENTIAL 2018-10-13 09:05:00 Saurabh San [facility] VENOUS CORD GAS 2018-10-12 05:36:00 Agustina Cooney [facility] POCT GLUCOSE (AUTOMATED) 2018-10-12 02:07:00 Coleen Blandon [facility] HEPATITIS B SURFACE ANTIGEN 2018-10-11 16:54:00 Agustina Cooney [facility] TYPE AND SCREEN 2018-10-11 16:54:00 Agustina Cooney [facility] GALV ONLY - SYPHILIS IGG/IGM 2018-10-11 16:54:00 Agustina Cooney [facility] HOSPITAL ADMISSION 2018-10-11 05:01:00 Doctor Un assigned, [place] [facility] POCT URINALYSIS W/O SPECIFIC GRAVITY 2018-10-07 16:43:00 Lizette Lugo [facility] POCT URINALYSIS GLUCOSE & PROTEIN 2018-09-30 16:00:00 Dayday Graham [facility] CONSENT/REFUSAL FOR DIAGNOSIS AND TREATMENT 2018-09-28 05:01:00 Doctor Unassigned, [place] [facility] POCT URINALYSIS W/O SPECIFIC GRAVITY 2018-09-23 14:15:00 Lizette Lugo [facility] Encounters Start Date/Time End Date/Time Encounter Type Admission Type Attending [facility] Care Facility Care Department Encounter ID Source 2020-12-17 20:44:03 Outpatient P [facility] [id number] [facility] 2020-12-17 15:42:38 Outpatient P [facility] [id number] [facility] 2020-12-17 15:42:20 Outpatient P [facility] [id number] [facility] 2020-12-17 12:42:32 Outpatient P [facility] [id number] [facility] 2020-12-17 12:42:20 Outpatient P [facility] [id number] [facility] 2020-12-06 10:30:00 2020-12-06 10:30:00 Outpatient R LIZETTE LUGO [facility] [id number] [facility] 2020-09-04 00:00:00 2020-09-04 00:00:00 Telephone Lizette Lugo [facility] CHILD [facility] 1..840.114 350.1.13.10 4.2.7.2.686 [id number] [facility] 2020-08-30 08:10:27 2020-08-30 08:55:14 Office Visit Lizette Lugo [facility]ILD [facility] 1..840.114 350.1.13.10 4.2.7.2.686 [id number] [facility] 2020-08-30 08:15:00 2020-08-30 08:15:00 Outpatient R LIZETTE LUGO [facility] [id number] [facility] 2020-08-07 09:02:18 2020-08-07 09:17:18 Routine Visit Lizette Lugo [facility]ILD [facility] 1..840.114 350.1.13.10 4.2.7.2.686 [id number] [facility] 2020-08-07 09:15:00 2020-08-07 09:15:00 Outpatient R LIZETTE LUGO [facility] [id number] [facility] 2020-07-20 15:00:00 2020-07-20 15:00:00 Outpatient R [facility] [id number] [facility] 2020-07-18 14:30:00 2020-07-18 14:30:00 Outpatient R [facility] [id number] [facility] 2020-07-14 21:46:00 2020-07-16 14:09:00 Hospital Encounter Naomi Souza [facility] 1.2.840.114 350.1.13.10 4.2.7.2.686 [id number] [facility] 2020-07-15 11:50:00 2020-07-15 13:16:00 Surgery Wild Kate [facility] 1.2.840.114 350.1.13.10 4.2.7.2.686 [id number] [facility] 2020-07-13 14:00:00 2020-07-13 14:00:00 Outpatient R [facility] [id number] [facility] 2020-07-10 14:39:24 2020-07-10 15:42:26 Routine Visit Lizette Lugo [facility]ANIC [facility] & [facility]ILD [facility] 1.2.840.114 350.1.13.10 4.2.7.2.686 [id number] [facility] 2020-07-10 14:30:00 2020-07-10 14:30:00 Outpatient R [facility] [id number] [facility] 2020-07-06 13:51:59 2020-07-06 15:15:19 Routine Visit Risk, Ang-Rmchp-N p/High Mary Grace Nava [facility] & [facility]ILD [facility] 1.2840.114 350.1.13.10 4.2.7.2.686 [id number] [facility] 2020-07-06 14:00:00 2020-07-06 14:00:00 Outpatient R [facility] [id number] [facility] 2020-07-04 00:00:00 2020-07-04 00:00:00 Telephone Lizette Lugo [facility] 1.2.840.114 350.1.13.10 4.2.7.2.686 [id number] [facility] 2020-07-04 00:00:00 2020-07-04 00:00:00 Abstract EdsonLizette gomez [facility] 1.2.840.114 350.1.13.10 4.2.7.2.686 [id number] [facility] 2020-07-03 14:35:38 2020-07-03 15:23:50 Routine Visit Lizette Lugo [facility] 1.2.840.114 350.1.13.10 4.2.7.2.686 [id number] 107 [id number] [facility] 2020-07-03 14:45:00 2020-07-03 14:45:00 Outpatient R [facility] [id number] [facility] 2020-07-03 14:15:12 2020-07-03 14:34:18 Ending Machine Operator Visit Ultrasound, Dion Burdick [facility] 1.2.840.114 350.1.13.10 4.2.7.2.686 [id number] [facility] 2020-06-29 13:24:41 2020-06-29 14:19:29 Routine Visit Risk, Ang-Rmchp-N p/High Mary Grace Nava [facility] 1.2.840.114 350.1.13.10 4.2.7.2.686 [id number] [facility] 2020-06-29 14:00:00 2020-06-29 14:00:00 Outpatient R [facility] [id number] [facility] 2020-06-26 13:50:58 2020-06-26 14:52:08 Routine Visit Lizette Lugo [facility] 1..840.114 350.1.13.10 4.2.7.2.686 [id number] [facility] 2020-06-26 14:00:00 2020-06-26 14:00:00 Outpatient R [facility] [id number] [facility] 2020-06-22 08:49:16 2020-06-22 09:53:49 Routine Visit Risk, Ang-Rmchp-N p/High Mary Grace Nava [facility] 1..840.114 350.1.13.10 4.2.7.2.686 [id number] [facility] 2020-06-22 09:00:00 2020-06-22 09:00:00 Outpatient R [facility] [id number] [facility] 2020-06-22 00:00:00 2020-06-22 00:00:00 Telephone Lizette Lugo [facility] 1..840.114 350.1.13.10 4.2.7.2.686 [id number] [facility] 2020-06-20 10:00:00 2020-06-20 10:00:00 Outpatient R TONIO ECHOLS [facility] [id number] [facility] 2020-06-13 18:04:00 2020-06-13 19:07:00 Hospital Encounter Jaclyn Duval [facility] 1.2.840.114 350.1.13.10 4.2.7.2.686 [id number] [facility] 2020-06-08 08:30:00 2020-06-08 08:30:00 Outpatient R [facility] [id number] [facility] 2020-06-05 18:10:00 2020-06-05 20:23:00 Hospital Encounter Jaclyn Duval [facility] 1.2840.114 350.1.13.10 4.2.7.2.686 [id number] [facility] 2020-06-05 00:00:00 2020-06-05 00:00:00 Telephone Risk, Ang-Rmchp-N p/High [facility] & [facility] 1.2840.114 350.1.13.10 4.2.7.2.686 [id number] [facility] 2020-06-05 00:00:00 2020-06-05 00:00:00 Orders Only Doctor Unassigned, [place] [facility] 1.2840.114 350.1.13.10 4.2.7.2.686 [id number] [facility] 2020-05-30 19:58:00 2020-05-30 21:25:00 Hospital Encounter Tyson [facility] 1.2.840.114 350.1.13.10 4.2.7.2.686 [id number] [facility] 2020-05-30 00:00:00 2020-05-30 00:00:00 Orders Only Doctor Unassigned, [place] [facility] 1.2840.114 350.1.13.10 4.2.7.2.686 [id number] [facility] 2020-05-23 10:00:00 2020-05-23 10:00:00 Outpatient ARSALAN BLANDON [facility] [id number] [facility] 2020-05-22 10:26:59 2020-05-22 10:58:34 Routine Visit Lizette Lugo [facility] 1.840.114 350.1.13.10 4.2.7.2.686 [id number] [facility] 2020-05-22 09:45:00 2020-05-22 09:45:00 Outpatient R LIZETTE LUGO [facility] [id number] [facility] 2020-05-22 00:00:00 2020-05-22 00:00:00 Orders Only Doctor Unassigned, [place] [facility] 1.2840.114 350.1.13.10 4.2.7.2.686 [id number] [facility] 2020-05-09 00:00:00 2020-05-09 00:00:00 Patient Outreach Arsalan Blandon [facility] 1.840.114 350.1.13.10 4.2.7.2.686 [id number] [facility] 2020-05-08 08:47:27 2020-05-08 10:56:07 Routine Visit Lizette Lugo [facility] 1.2840.114 350.1.13.10 4.2.7.2.686 [id number] [facility] 2020-05-08 09:00:00 2020-05-08 09:00:00 Outpatient DAYDAY ROBLES [facility] [id number] [facility] 2020-05-08 09:00:00 2020-05-08 09:00:00 Outpatient R LIZETTE LUGO [facility] [id number] [facility] 2020-05-08 00:00:00 2020-05-08 00:00:00 Orders Only Doctor Unassigned, [place] [facility] 1..114 350.1.13.10 4.2.7.2.686 [id number] [facility] 2020-05-04 00:00:00 2020-05-04 00:00:00 Telephone Lizette Lugo [facility] 1..114 350.1.13.10 4.2.7.2.686 [id number] [facility] 2020-05-03 07:46:58 2020-05-03 08:01:58 Ending Machine Operator Visit Lab[facility] Graham [facility] 1..114 350.1.13.10 4.2.7.2.686 [id number] [facility] 2020-05-03 07:45:00 2020-05-03 07:45:00 Outpatient R DAYDAY GRAHAM [facility] [id number] [facility] 2020-04-26 00:00:00 2020-04-26 00:00:00 Telephone Lizette Lugo [facility] 1..114 350.1.13.10 4.2.7.2.686 [id number] [facility] 2020-04-25 08:55:43 2020-04-25 09:34:31 Routine Visit Lizette Lugo Emily N [facility] 1..114 350.1.13.10 4.2.7.2.686 [id number] [facility] 2020-04-25 09:15:00 2020-04-25 09:15:00 Outpatient R DAYDAY GRAHAM [facility] [id number] [facility] 2020-04-21 00:00:00 2020-04-21 00:00:00 Telephone Dayday Graham [facility] MECHANIC [facility] & CHILD [facility] 1.2.840.114 350.1.13.10 4.2.7.2.686 [id number] [facility] 2020-04-20 10:18:39 2020-04-20 10:46:55 Routine Visit Risk, Jefferychp-N p/High Tara Harvey [facility] 1..840.114 350.1.13.10 4.2.7.2.686 [id number] [facility] 2020-04-20 10:30:00 2020-04-20 10:30:00 Outpatient R [facility] [id number] [facility] 2020-04-15 00:00:00 2020-04-15 00:00:00 Patient Secure Msg Doctor Unassigned, [place] [facility] 1..840.114 350.1.13.10 4.2.7.2.686 [id number] [facility] 2020-04-06 10:00:00 2020-04-06 10:00:00 Outpatient R [facility] [id number] [facility] 2020-03-28 11:00:00 2020-03-28 11:00:00 Outpatient R LIZETTE LUGO [facility] [id number] [facility] 2020-03-09 13:52:50 2020-03-09 15:07:50 Ending Machine Operator Visit Ultrasound, Tamiko Russell [facility]CHANIC [facility] & [facility]ILD [facility] 1.2.840.114 350.1.13.10 4.2.7.2.686 [id number] [facility] 2020-03-09 14:00:00 2020-03-09 14:00:00 Outpatient P [facility] [id number] [facility] 2020-02-29 12:58:27 2020-02-29 13:26:41 Routine Visit Lizette Lugo [facility] RAD[facility] MECHANIC [facility]NAL & [facility]ILD [facility] 1.2.840.114 350.1.13.10 4.2.7.2.686 [id number] [facility] 2020-02-29 13:00:00 2020-02-29 13:00:00 Outpatient R LIZETTE LUGO [facility] [id number] [facility] 2020-02-29 00:00:00 2020-02-29 00:00:00 Orders Only Doctor Unassigned, [place] [facility] 1.2840.114 350.1.13.10 4.2.7.2.686 [id number] [facility] 2020-02-22 00:00:00 2020-02-22 00:00:00 Patient Secure Msg Doctor Unassigned, [place] [facility]IC [facility] 1.2.840.114 350.1.13.10 4.2.7.2.686 [id number] [facility] 2020-02-01 13:43:05 2020-02-01 14:05:32 Routine Visit Dayday Graham [facility] 1.2.840.114 350.1.13.10 4.2.7.2.686 [id number] [facility] 2020-02-01 14:00:00 2020-02-01 14:00:00 Outpatient R DAYDAY GRAHAM [facility] [id number] [facility] 2020-01-26 13:20:33 2020-01-26 13:52:11 Ending Machine Operator Visit Ultrasound, Tamiko Russell [facility] 1.2.840.114 350.1.13.10 4.2.7.2.686 [id number] [facility] 2020-01-26 13:30:00 2020-01-26 13:30:00 Outpatient P [facility] [id number] [facility] 2020-01-21 00:00:00 2020-01-21 00:00:00 Patient Secure Msg Doctor Unassigned, [place] [facility] 1.2.840.114 350.1.13.10 4.2.7.2.686 [id number] [facility] 2020-01-21 00:00:00 2020-01-21 00:00:00 Telephone Dayday Graham [facility] MECHANIC [facility]ILD [facility] 1.2.840.114 350.1.13.10 4.2.7.2.686 [id number] [facility] 2020-01-17 00:00:00 2020-01-17 00:00:00 Patient Secure Msg Doctor Unassigned, [place] [facility] 1.2.840.114 350.1.13.10 4.2.7.2.686 [id number] [facility] 2020-01-04 14:10:07 2020-01-04 14:25:07 Routine Visit Dayday Graham [facility] 1.2.840.114 350.1.13.10 4.2.7.2.686 [id number] [facility] 2020-01-04 14:15:00 2020-01-04 14:15:00 Outpatient Darya GRAHAM, DAYDAY [facility] [id number] [facility] 2019-12-08 00:00:00 2019-12-08 00:00:00 Patient Secure Msg Doctor Unassigned, [place] [facility] 1.2.840.114 350.1.13.10 4.2.7.2.686 [id number] [facility] 2019-12-08 00:00:00 2019-12-08 00:00:00 Patient Secure Msg Doctor Unassigned, [place] [facility] RADIO MECHANIC [facility] 1.2.840.114 350.1.13.10 4.2.7.2.686 [id number] [facility] 2019-12-03 13:57:53 2019-12-03 15:53:08 Initial Visit Mickey Paul [facility] 1.2840.114 350.1.13.10 4.2.7.2.686 [id number] [facility] 2019-12-03 14:00:00 2019-12-03 14:00:00 Outpatient Darya AREVALOPAUL [facility] [id number] [facility] 2019-11-28 00:00:00 2019-11-28 00:00:00 Orders Only Doctor Unassigned, [place] [facility] 1.284.114 350.1.13.10 4.2.7.2.686 [id number] [facility] 2019-06-05 12:52:00 2019-06-07 06:25:28 Inpatient [facility] [id number] 94 [facility] 2019-05-12 09:15:00 2019-05-12 09:15:00 [place] [id number] [facility] 2019-03-12 14:09:29 2019-03-12 15:05:26 Office Visit Lizette Lugo [facility] 1.2.840.114 350.1.13.10 4.2.7.2.686 [id number] 2019-03-12 14:09:29 2019-03-12 15:05:26 Office Visit Lizette Lugo [facility] 1.2.840.114 350.1.13.10 4.2.7.2.686 [id number] [facility] 2019-03-12 00:00:00 2019-03-12 00:00:00 Orders Only Doctor Unassigned, [place] [facility] 1.2.840.114 350.1.13.10 4.2.7.2.686 [id number] [facility] 2019-03-11 00:00:00 2019-03-11 00:00:00 Telephone Lizette Lugo [facility] 1.2.840.114 350.1.13.10 4.2.7.2.686 [id number] [facility] 2018-11-02 09:19:45 2018-11-02 10:10:06 Routine Visit Lizette Lugo [facility] 1.2.840.114 350.1.13.10 4.2.7.2.686 [id number] [facility] 2018-10-11 09:10:00 2018-10-13 13:48:00 Hospital Encounter Altagracia Blandon [facility] 1.2.840.114 350.1.13.10 4.2.7.2.686 [id number] [facility] 2018-10-11 00:00:00 2018-10-11 00:00:00 Orders Only Doctor Unassigned, [place] [facility] 1.2.840.114 350.1.13.10 4.2.7.2.686 [id number] [facility] 2018-10-07 10:46:28 2018-10-07 11:49:44 Routine Visit Lizette Lugo Emily N [facility] [employer] [facility] 1.2.840.114 350.1.13.10 4.2.7.2.686 [id number] [facility] 2018-09-30 10:52:31 2018-09-30 11:16:08 Routine Visit Dayday Graham [facility] [employer] [facility] 1.2.840.114 350.1.13.10 4.2.7.2.686 [id number] [facility] 2018-09-28 11:23:00 2018-09-28 13:27:00 Hospital Encounter Yas Hilario [facility] 1.2.840.114 350.1.13.10 4.2.7.2.686 [id number] [facility] 2018-09-28 00:00:00 2018-09-28 00:00:00 Nurse Triage Virginie Sutton [facility] 1.2.840.114 350.1.13.10 4.2.7.2.686 [id number] [facility] 2018-09-28 00:00:00 2018-09-28 00:00:00 Patient Secure Msg Lizette Lugo [facility] [employer] 1.2.840.114 350.1.13.10 4.2.7.2.686 [id number] [facility] 2018-09-24 00:00:00 2018-09-24 00:00:00 Telephone Lizette Lugo [facility] [employer] [facility] 1.2.840.114 350.1.13.10 4.2.7.2.686 [id number] [facility] 2018-09-24 00:00:00 2018-09-24 00:00:00 Patient Secure g Lizette Lugo [facility] [employer] [facility] 1.2840.114 350.1.13.10 4.2.7.2.686 [id number] [facility] 2018-09-23 08:57:20 2018-09-23 10:50:36 Routine Visit Lizette Lugo [facility] 1.2840.114 350.1.13.10 4.2.7.2.686 [id number] [facility] 2018-08-14 00:00:00 2018-08-14 00:00:00 Patient Secure g Doctor Unassigned, [place] [facility] 1.2840.114 350.1.13.10 4.2.7.2.686 [id number] [facility] Results Test Description Test Time Test Comments Results Resul t Comments Source LAB ONLY COVID INTERPRETATION 1 03:38:37 COVID DMT InterpretationInte rpretation/Recomme ndations: Molecular NAAT Tests for Active Infection [...] COVID-19 testing the patient has had at [facility], including molecular NAAT testing (more commonly known as PCR testing and Rapid ID Now testing) and antibody testing. It does not take into account any testing that a patient has had outside of the [facility] medical record. [facility] LABORATORY SERVICESCOVID QnvugatHJRI-FtO-8 Rapid ID NOW (no units) ? ? Date ? Value ? 07/14/2020 ? Not Detected ? ? ? 07/08/2020 ? Not Detected ? ? ? 06/13/2020 ? Not Detected ? CoV-2 IgG (no units) ? ? Date ? Value ? 07/03/2020 ? Positive (A) ? ? ? 12/03/2019 ? Negative ? ? ? [facility] Uwmpeglwcdal2709-97-79 10:28:11* Test Item Value Reference Range Interpretation Comme nts WBC (test code = 6690-2) See_Comment H [Automated message] The system which generated this result transmitted reference range: 4.30 - 11.10 10*3/?L. The reference range was not used to interpret this result as normal/abnormal. RBC (test code = 789-8) See_Comment L [Automated message] The system which generated this result transmitted reference range: 3.93 - 5.25 10*6/?L. The reference range was not used to interpret this result as normal/abnormal. HGB (test code = 718-7) 9.7 g/dL 11.6-15.0 L HCT (test code = 4544-3) 31.2 % 35.7-45.2 L MCV (test code = 787-2) 89.7 fL 80.6-95.5 MCH (test code = 785-6) 27.9 pg 25.9-32.8 MCHC (test code = 786-4) 31.1 g/dL 31.6-35.1 L RDW-SD (test code = 17460-6) 48.5 fL 39.0-49.9 RDW-CV (test code = 788-0) 14.8 % 12.0-15.5 PLT (test code = 777-3) See_Comment [Automated message] The system which generated this result transmitted reference range: 166 - 358 10*3/?L. The reference range was not used to interpret this result as normal/abnormal. MPV (test code = 99601-4) 9.5 fL 9.5-12.9 NRBC/100 WBC (test code = 8707088972) See_Comment [Automated message] The system which generated this result transmitted reference range: 0.0 - 10.0 /100 WBCs. The reference range was not used to interpret this result as normal/abnormal. NRBC x10^3 (test code = 9766047150) <0.01 See_Comment [Automated message] The system which generated this result transmitted reference range: 10*3/?L. The reference range was not used to interpret this result as normal/abnormal. GRAN MAT (NEUT) % (test code = 770-8) 77.0 % IMM GRAN % (test code = 0486560585) 0.80 % LYMPH % (test code = 736-9) 12.4 % MONO % (test code = 5905-5) 8.7 % EOS % (test code = 713-8) 0.9 % BASO % (test code = 706-2) 0.2 % GRAN MAT x10^3(ANC) (test code = 9601589871) 11.03 10*3/uL 1.88-7.09 H IMM GRAN x10^3 (test code = 8041572503) 0.12 10*3/uL 0.00-0.06 H LYMPH x10^3 (test code = 731-0) 1.78 10*3/uL 1.32-3.29 MONO x10^3 (test code = 742-7) 1.25 10*3/uL 0.33-0.92 H EOS x10^3 (test code = 711-2) 0.13 10*3/uL 0.03-0.39 BASO x10^3 (test code = 704-7) 0.03 10*3/uL 0.01-0.07 Lab Interpretation (test code = 76275-6) Abnormal [facility] (D) IMMUNE TROBRZBY1920-79-13 01:57:12* Test Item Value Reference Range Interpretation Comme nts RHIG CANDIDATE? (test code = 5055) No- see comment Patient is not a candidate for RhIg- Patient is Rh Positive.Performed at [facility] Laboratory Services - [facility] Blood [address] Free: [phone] No. [id number] [facility] (D) IMMUNE UIKSDRSC1713-46-62 01:57:12* Test Item Value Reference Range Interpretation Comme nts RHIG CANDIDATE? (test code = 5055) No- see comment Patient is not a candidate for RhIg- Patient is Rh Positive.Performed at [facility] Laboratory Services - [facility] Blood [address] [place], [place] [id number] Free: [phone] No. [id number] [facility] ONLY - SYPHILIS IGG/[id number] 16:55:55* Test Item Value Reference Range Interpretation Comme nts Syphilis IgG/IgM (test code = 69715-5) Non-reactive Non-reactive KARLA (test code = KARLA) Non-reactive - No serologic evidence of T. pallidum infection. Cannot exclude incubating or early syphilis. Submit a second specimen in 2-4 weeks if syphilis is clinically suspected. Equivocal - Further testing to follow. Reactive - Further testing to follow. Lab Interpretation (test code = 32703-2) [facility] [place] IGG/[id number] 16:55:55* Test Item Value Reference Range Interpretation Comme [facility] Syphilis IgG/IgM (test code = 65540-7) Non-reactive Non-reactive KARLA (test code = KARLA) Non-reactive - No serologic evidence of T. pallidum infection. Cannot exclude incubating or early syphilis. Submit a second specimen in 2-4 weeks if syphilis is clinically suspected. Equivocal - Further testing to follow. Reactive - Further testing to follow. Lab Interpretation (test code = 47577-7) Normal [facility] CORD [id number] 14:33:45* Test Item Value Reference Range Interpretation Comme [facility] VENOUS BASE EXCESS, CORD (test code = 0448573367) mEq/L VENOUS PH, CORD (test code = 6734275886) 7.25-7.45 VENOUS PC02, CORD (test code = 6621123861) See_Comment [Automated messa ge] The system which generated this result transmitted reference range: 27 - 49 mmHg. The reference range was not used to interpret this result as normal/abnormal. VENOUS PO2, CORD (test code = 4376602176) See_Comment [Automated me ssage] The system which generated this result transmitted reference range: 17 - 41 mmHg. The reference range was not used to interpret this result as normal/abnormal. VENOUS BICARBONATE, CORD (test code = 1994316219) See_Comment [Automated messa ge] The system which generated this result transmitted reference range: 12 - 29 mEq/L. The reference range was not used to interpret this result as normal/abnormal. [facility] CORD [id number] 14:33:45* Test Item Value Reference Range Interpretation Comme [facility] VENOUS BASE EXCESS, CORD (test code = 0006584451) mEq/L VENOUS PH, CORD (test code = 8898967886) 7.25-7.45 VENOUS PC02, CORD (test code = 6121813270) See_Comment [Automated messa ge] The system which generated this result transmitted reference range: 27 - 49 mmHg. The reference range was not used to interpret this result as normal/abnormal. VENOUS PO2, CORD (test code = 4646088994) See_Comment [Automated me ssage] The system which generated this result transmitted reference range: 17 - 41 mmHg. The reference range was not used to interpret this result as normal/abnormal. VENOUS BICARBONATE, CORD (test code = 9879844642) See_Comment [Automated messa ge] The system which generated this result transmitted reference range: 12 - 29 mEq/L. The reference range was not used to interpret this result as normal/abnormal. [facility] CORD [id number] 14:30:44* Test Item Value Reference Range Interpretation Comme nts BASE EXCESS, CORD (test code = 5913364378) mEq/L AC PH, CORD (BEAKER) (test code = 8482943739) 7.18-7.38 PC02, CORD (test code = 8771303706) See_Comment [Automated messa ge] The system which generated this result transmitted reference range: 32 - 66 mmHg. The reference range was not used to interpret this result as normal/abnormal. PO2, CORD (test code = 2425109400) See_Comment [Automated messa ge] The system which generated this result transmitted reference range: 10 - 30 mmHg. The reference range was not used to interpret this result as normal/abnormal. BICARBONATE, CORD (test code = 5821975576) See_Comment [Automated messa ge] The system which generated this result transmitted reference range: 17 - 27 mEq/L. The reference range was not used to interpret this result as normal/abnormal. [facility] CORD [id number] 14:30:44* Test Item Value Reference Range Interpretation Comme nts BASE EXCESS, CORD (test code = 0962519752) mEq/L AC PH, CORD (BEAKER) (test code = 9382352766) 7.18-7.38 PC02, CORD (test code = 4056243320) See_Comment [Automated messa ge] The system which generated this result transmitted reference range: 32 - 66 mmHg. The reference range was not used to interpret this result as normal/abnormal. PO2, CORD (test code = 0876253266) See_Comment [Automated messa ge] The system which generated this result transmitted reference range: 10 - 30 mmHg. The reference range was not used to interpret this result as normal/abnormal. BICARBONATE, CORD (test code = 6631718902) See_Comment [Automated [employer] ge] The system which generated this result transmitted reference range: 17 - 27 mEq/L. The reference range was not used to interpret this result as normal/abnormal. [facility] GLUCOSE (AUTOMATED)2020-07-15 11:59:25* Test Item Value Reference Range Interpretation Comme nts POCT GLU (test code = 1027061249) 122 mg/dL 70-110 H Lab Interpretation (test cod e = 21759-7) Abnormal [facility] GLUCOSE (AUTOMATED)2020-07-15 11:59:25* Test Item Value Reference Range Interpretation Comme nts POCT GLU (test code = 9420245491) 122 mg/dL 70-110 H Lab Interpretation (test cod e = 87876-6) Abnormal [facility] GLUCOSE (AUTOMATED)2020-07-15 08:15:23* Test Item Value Reference Range Interpretation Comme nts POCT GLU (test code = 7178024676) 122 mg/dL 70-110 H Lab Interpretation (test cod e = 26096-4) Abnormal [facility] GLUCOSE (AUTOMATED)2020-07-15 08:15:23* Test Item Value Reference Range Interpretation Comme nts POCT GLU (test code = 7349633678) 122 mg/dL 70-110 H Lab Interpretation (test cod e = 66803-2) Abnormal [facility] 06:40:28* Test Item Value Reference Range Interpretation Comme nts APPEARANCE (test code = 5597117355) Clear Clear COLOR (test code = 6589870175) Yellow Yellow PH (test code = 0864888468) 4.8-8.0 SP GRAVITY (test code = 2046158333) 1.003-1.030 GLU U QUAL (test code = 3255690497) Normal Normal BLOOD (test code = 4352246058) Negative Negative KETONES (test code = 6367186763) 5 mg/dL Negative A PROTEIN (test code = 2887-8) Negative Negative UROBILIN (test code = 1066407499) Normal Normal BILIRUBIN (test code = 9123243807) Negative Negative NITRITE (test code = 5649455556) Negative Negative LEUK RAJ (test code = 3788431498) Negative Negative RBC/HPF (test code = 3521455318) See_Comment H [Automated messa ge] The system which generated this result transmitted reference range: 0 - 3 HPF. The reference range was not used to interpret this result as normal/abnormal. WBC/HPF (test code = 6172925535) See_Comment [Automated messa ge] The system which generated this result transmitted reference range: 0 - 5 HPF. The reference range was not used to interpret this result as normal/abnormal. BACTERIA (test code = 6668302861) Few Negative A MUCOUS (test code = 3876692713) Moderate Negative LPF A SQ EPITH (test code = 9094964636) See_Comment H [Automated messa ge] The system which generated this result transmitted reference range: <=2 HPF. The reference range was not used to interpret this result as normal/abnormal. Lab Interpretation (test code = 38458-6) Abnormal [facility] 06:40:28* Test Item Value Reference Range Interpretation Comme nts APPEARANCE (test code = 8962480027) Clear Clear COLOR (test code = 7729648063) Yellow Yellow PH (test code = 5034488867) 4.8-8.0 SP GRAVITY (test code = 3791881676) 1.003-1.030 GLU U QUAL (test code = 6411830953) Normal Normal BLOOD (test code = 3494806758) Negative Negative KETONES (test code = 3388110880) 5 mg/dL Negative A PROTEIN (test code = 2887-8) Negative Negative UROBILIN (test code = 2825333560) Normal Normal BILIRUBIN (test code = 5542056798) Negative Negative NITRITE (test code = 2692118275) Negative Negative LEUK RAJ (test code = 0091340657) Negative Negative RBC/HPF (test code = 3230613927) See_Comment H [Automated messa ge] The system which generated this result transmitted reference range: 0 - 3 HPF. The reference range was not used to interpret this result as normal/abnormal. WBC/HPF (test code = 5379770058) See_Comment [Automated messa ge] The system which generated this result transmitted reference range: 0 - 5 HPF. The reference range was not used to interpret this result as normal/abnormal. BACTERIA (test code = 8245858303) Few Negative A MUCOUS (test code = 4639337423) Moderate Negative LPF A SQ EPITH (test code = 2885697443) See_Comment H [Automated messa ge] The system which generated this result transmitted reference range: <=2 HPF. The reference range was not used to interpret this result as normal/abnormal. Lab Interpretation (test code = 63150-8) Abnormal [facility] Center[facility] CREAT Ratio Urine Dnciar9035-91-74 06:39:32* Test Item Value Reference Range Interpretation Comme nts T. PROT U (test code = 2888-6) 13 mg/dL CREAT U (test code = 1645275200) 156.2 mg/dL Protein/Creatinine Ratio Uri ne (test code = 4300637021) 0.0-2.0 [facility] CREAT Ratio Urine Xkmwzo4357-66-48 06:39:32* Test Item Value Reference Range Interpretation Comme nts T. PROT U (test code = 2888-6) 13 mg/dL CREAT U (test code = 3079300857) 156.2 mg/dL Protein/Creatinine Ratio Uri ne (test code = 7303751151) 0.0-2.0 [facility]HIV 1/2 AG-AB WITH [id number] 06:12:14* Test Item Value Reference Range Interpretation Comme nts HIV Semi-quantitative (test code = 19585-8) Negative Negative KARLA (test code = KARLA) Non-reactive for HIV-1 antigen and HIV-1/HIV-2 antibodies. ?No laboratory evidence of HIV infection. ?Repeat in 2-4 weeks if acute HIV infection is suspected. [facility]2 AG-AB WITH [id number] 06:12:14* Test Item Value Reference Range Interpretation Comme nts HIV Semi-quantitative (test code = 09293-3) Negative Negative KARLA (test code = KARLA) Non-reactive for HIV-1 antigen and HIV-1/HIV-2 antibodies. ?No laboratory evidence of HIV infection. ?Repeat in 2-4 weeks if acute HIV infection is suspected. [facility] CenterHEPATITIS B SURFACE UMLZPDY0753-27-27 06:03:09 * Test Item Value Reference Range Interpretation Comme nts HBsAg Semi-Quantitative (cristian t code = 5195-3) Negative Negative [facility] CenterHE[facility]ALTIS B SURFACE [id number] 06:03:09 * Test Item Value Reference Range Interpretation Comme nts HBsAg Semi-Quantitative (cristian t code = 5195-3) Negative Negative [facility] CenterUric Acid Uoqtb9012-85-83 05:31:11* Test Item Value Reference Range Interpretation Comme nts URIC ACID (test code = 9355339581) 4.7 mg/dL 2.9-6.0 Lab Interpretation (test cod e = 84854-8) Normal [facility] CenterSerum Zdkjtccsem5877-95-87 05:31:11* Test Item Value Reference Range Interpretation Comme nts CREATININE (test code = 0349225082) 0.49 mg/dL 0.50-1.04 L eGFR (test code = 9944595170) mL/min/1.73m2 KARLA (test code = KARLA) Association of [...] or abnormalities in imaging tests). Lab Interpretation (test code = 26881-1) Abnormal [facility] CenterSGOT (Asparate Amino Transfer)2020-07-15 05:31:11* Test Item Value Reference Range Interpretation Comme [facility] AST(SGOT) (test code = 9738596296) 19 U/L 13-40 Lab Interpretation (test cod e = 82126-2) Normal [facility] CenterUric Acid Knxgz4619-44-92 05:31:11* Test Item Value Reference Range Interpretation Comme [facility] URIC ACID (test code = 0022103201) 4.7 mg/dL 2.9-6.0 Lab Interpretation (test cod e = 93743-7) Normal [facility] Pdpdnkudle6306-58-33 05:31:11* Test Item Value Reference Range Interpretation Comme [facility] CREATININE (test code = 5795145544) 0.49 mg/dL 0.50-1.04 L eGFR (test code = 5419998797) mL/min/1.73m2 KARLA (test code = KARLA) Association of [...] or abnormalities in imaging tests). Lab Interpretation (test code = 40608-0) Abnormal [facility] CenterSGOT (Asparate Amino Transfer)2020-07-15 05:31:11* Test Item Value Reference Range Interpretation Comme nts AST(SGOT) (test code = 1884292965) 19 U/L 13-40 Lab Interpretation (test cod e = 38124-7) Normal [facility] CenterAlanine Amino Transferase (SGPT)2020-07-15 05:31:10* Test Item Value Reference Range Interpretation Comme nts ALTv (test code = 1742-6) 12 U/L 5-35 Lab Interpretation (test cod e = 49828-6) Normal [facility] CenterAlanine Amino Transferase (SGPT)2020-07-15 05:31:10* Test Item Value Reference Range Interpretation Comme nts ALTv (test code = 1742-6) 12 U/L 5-35 Lab Interpretation (test cod e = 33284-9) Normal [facility] CenterLactate Tbluduexsvgpt6223-04-24 05:30:50* Test Item Value Reference Range Interpretation Comme nts LDH (test code = 9375019570) 459 U/L 300-600 Lab Interpretation (test cod e = 68780-6) Normal [facility] CenterLactate Vwuejhpeghnxx3960-84-59 05:30:50* Test Item Value Reference Range Interpretation Comme nts LDH (test code = 4583250645) 459 U/L 300-600 Lab Interpretation (test cod e = 70495-6) Normal [facility] CenterType and Screen - ONCE [id number] 05:21:09 * Test Item Value Reference Range Interpretation Comme nts ABO & RH (test code = 20) B POSITIVE Performed at [facility] Laboratory Services - [facility] Blood [address] [address] Free: [phone] No. [id number] IAT (test code = 1185) Negative Performed at [facility] Laboratory Services - [facility] Blood [place] [address]Toll Free: [phone] No. [id number] [facility] CenterType and Screen - ONCE [id number] 05:21:09 * Test Item Value Reference Range Interpretation Comme nts ABO & RH (test code = 20) B POSITIVE Performed at [facility] Laboratory Services - [facility] Blood [address] Free: [phone] No. [id number] IAT (test code = 1185) Negative Performed at [facility] Laboratory Services - [place] [address]Toll Free: [phone] No. [id number] [facility] CenterCBC with Zesozygizjlr3945-59-26 05:01:18* Test Item Value Reference Range Interpretation Comme nts WBC (test code = 6690-2) See_Comment H [Automated message] The system which generated this result transmitted reference range: 4.30 - 11.10 10*3/?L. The reference range was not used to interpret this result as normal/abnormal. RBC (test code = 789-8) See_Comment L [Automated message] The system which generated this result transmitted reference range: 3.93 - 5.25 10*6/?L. The reference range was not used to interpret this result as normal/abnormal. HGB (test code = 718-7) 10.9 g/dL 11.6-15.0 L HCT (test code = 4544-3) 34.4 % 35.7-45.2 L MCV (test code = 787-2) 88.4 fL 80.6-95.5 MCH (test code = 785-6) 28.0 pg 25.9-32.8 MCHC (test code = 786-4) 31.7 g/dL 31.6-35.1 RDW-SD (test code = 00626-4) 48.0 fL 39.0-49.9 RDW-CV (test code = 788-0) 14.8 % 12.0-15.5 PLT (test code = 777-3) See_Comment [Automated message] The system which generated this result transmitted reference range: 166 - 358 10*3/?L. The reference range was not used to interpret this result as normal/abnormal. MPV (test code = 06381-5) 9.6 fL 9.5-12.9 NRBC/100 WBC (test code = 4443877602) See_Comment [Automated message] The system which generated this result transmitted reference range: 0.0 - 10.0 /100 WBCs. The reference range was not used to interpret this result as normal/abnormal. NRBC x10^3 (test code = 2101092152) <0.01 See_Comment [Automated message] The system which generated this result transmitted reference range: 10*3/?L. The reference range was not used to interpret this result as normal/abnormal. GRAN MAT (NEUT) % (test code = 770-8) 74.5 % IMM GRAN % (test code = 8787855747) 1.60 % LYMPH % (test code = 736-9) 15.7 % MONO % (test code = 5905-5) 7.1 % EOS % (test code = 713-8) 0.9 % BASO % (test code = 706-2) 0.2 % GRAN MAT x10^3(ANC) (test code = 8103922996) 11.97 10*3/uL 1.88-7.09 H IMM GRAN x10^3 (test code = 9471579843) 0.25 10*3/uL 0.00-0.06 H LYMPH x10^3 (test code = 731-0) 2.52 10*3/uL 1.32-3.29 MONO x10^3 (test code = 742-7) 1.14 10*3/uL 0.33-0.92 H EOS x10^3 (test code = 711-2) 0.14 10*3/uL 0.03-0.39 BASO x10^3 (test code = 704-7) 0.04 10*3/uL 0.01-0.07 Lab Interpretation (test code = 20576-1) Abnormal [facility] with Bbtumzfwbtve8510-87-03 05:01:18* Test Item Value Reference Range Interpretation Comme nts WBC (test code = 6690-2) See_Comment H [Automated message] The system which generated this result transmitted reference range: 4.30 - 11.10 10*3/?L. The reference range was not used to interpret this result as normal/abnormal. RBC (test code = 789-8) See_Comment L [Automated message] The system which generated this result transmitted reference range: 3.93 - 5.25 10*6/?L. The reference range was not used to interpret this result as normal/abnormal. HGB (test code = 718-7) 10.9 g/dL 11.6-15.0 L HCT (test code = 4544-3) 34.4 % 35.7-45.2 L MCV (test code = 787-2) 88.4 fL 80.6-95.5 MCH (test code = 785-6) 28.0 pg 25.9-32.8 MCHC (test code = 786-4) 31.7 g/dL 31.6-35.1 RDW-SD (test code = 57388-8) 48.0 fL 39.0-49.9 RDW-CV (test code = 788-0) 14.8 % 12.0-15.5 PLT (test code = 777-3) See_Comment [Automated message] The system which generated this result transmitted reference range: 166 - 358 10*3/?L. The reference range was not used to interpret this result as normal/abnormal. MPV (test code = 65069-9) 9.6 fL 9.5-12.9 NRBC/100 WBC (test code = 9713037047) See_Comment [Automated message] The system which generated this result transmitted reference range: 0.0 - 10.0 /100 WBCs. The reference range was not used to interpret this result as normal/abnormal. NRBC x10^3 (test code = 6032482758) <0.01 See_Comment [Automated message] The system which generated this result transmitted reference range: 10*3/?L. The reference range was not used to interpret this result as normal/abnormal. GRAN MAT (NEUT) % (test code = 770-8) 74.5 % IMM GRAN % (test code = 0199994367) 1.60 % LYMPH % (test code = 736-9) 15.7 % MONO % (test code = 5905-5) 7.1 % EOS % (test code = 713-8) 0.9 % BASO % (test code = 706-2) 0.2 % GRAN MAT x10^3(ANC) (test code = 5599463007) 11.97 10*3/uL 1.88-7.09 H IMM GRAN x10^3 (test code = 7043752124) 0.25 10*3/uL 0.00-0.06 H LYMPH x10^3 (test code = 731-0) 2.52 10*3/uL 1.32-3.29 MONO x10^3 (test code = 742-7) 1.14 10*3/uL 0.33-0.92 H EOS x10^3 (test code = 711-2) 0.14 10*3/uL 0.03-0.39 BASO x10^3 (test code = 704-7) 0.04 10*3/uL 0.01-0.07 Lab Interpretation (test code = 76044-4) Abnormal [facility] GLUCOSE (AUTOMATED)2020-07-15 04:49:15* Test Item Value Reference Range Interpretation Comme nts POCT GLU (test code = 9173897147) 137 mg/dL 70-110 H Lab Interpretation (test cod e = 59580-5) Abnormal [facility] GLUCOSE (AUTOMATED)2020-07-15 04:49:15* Test Item Value Reference Range Interpretation Comme nts POCT GLU (test code = 5837404598) 137 mg/dL 70-110 H Lab Interpretation (test cod e = 91486-4) [facility]ID [facility]2020-07-15 03:33:51* Test Item Value Reference Range Interpretation Comme nts SARS-CoV-2 Rapid ID NOW (test code = 58694-4) Not Detected Not Detected KARLA (test code = KARLA) ID NOW COVID-19 As say is an isothermal nucleic acid amplification test intended for the qualitative detection of nucleic acid from SARS-CoV-2 viral RNA in nasopharyngeal (ENVIRONMENTAL RESEARCH SCIENTIST) specimens. It is used under Emergency Use [...] patient testing if clinically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
[2023-08-12 12:54] VITALS: BP 159/98; TEMP 97.7; O2SAT 100
--- NOTE | 2023-08-13 12:17 | EDPHYS ---
Physician Documentation [facility] Name: Gail Juárez Age: 28 yrs Sex: Female : 1995 Arrival Date: 08/12/2023 Time: 11:33 Bed IW2 Private MD: ED Physician Reji Graham HPI: 08/11 16:09 This 28 yrs old Female presents to ER via Ambulatory with complaints of Toothache. ms3 16:09 28-year-old female with past medical history of prediabetes presents to the emergency ms3 department for right-sided tooth pain that is been ongoing for 2 days. Patient denies obtaining relief from ibuprofen or Tylenol. She rates the pain a 10/10. She denies any alleviating or inciting factors. 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 - Infectious Disease History:: Denies. - Social history:: Smoking status: Patient denies any tobacco usage or history of. ROS: 16:09 Constitutional: Negative for fever, and chills. Neck: Negative for injury, pain, and ms3 swelling, Cardiovascular: Negative for chest pain, and palpitations. Respiratory: Negative for shortness of breath, cough, wheezing, and pleuritic chest pain, Abdomen/GI: Negative for abdominal pain, nausea, vomiting, diarrhea, and constipation, MS/Extremity: Negative for injury and deformity, Skin: Negative for injury, rash, and discoloration, 16:09 ENT: Positive for Teeth pain Exam: 16:09 Constitutional: This is a well developed, well nourished patient who is awake, alert, ms3 and in no acute distress. Head/Face: Normocephalic, atraumatic. Neck: Trachea midline, no cervical lymphadenopathy. Supple, full range of motion without nuchal rigidity, or vertebral point tenderness. No Meningismus. Chest/axilla: Normal chest wall appearance and motion. Nontender with no deformity. Cardiovascular: Regular rate and rhythm with a normal S1 and S2. No gallops, murmurs, or rubs. Normal PMI, no JVD. No pulse deficits. Respiratory: Lungs have equal breath sounds bilaterally, clear to auscultation and percussion. No rales, rhonchi or wheezes noted. No increased work of breathing, no retractions or nasal flaring. 16:09 ENT: Mouth: Dental exam: pain, that is moderate, specifically in the upper right first molar (#3), Vital Signs: 11:44 BP 159 / 98; Pulse 80; Resp 18; Temp 97.7; Pulse Ox 100% on R/A; Weight 117.93 kg; mb9 Height 5 ft. 7 in. ; Pain 10/10; 11:44 Body Mass Index 40.72 (117.93 kg, 170.18 cm) mb9 11:44 Pain Scale: Adult mb9 MDM: 11:55 Patient medically screened. ms3 16:09 Differential diagnosis: dental caries, gingivitis. Data reviewed: vital signs, nurses ms3 notes, and as a result, I will discharge patient. I considered the following discharge prescriptions or medication management in the emergency department. Counseling: I had a detailed discussion with the patient and/or guardian regarding the historical points, exam findings, and any diagnostic results supporting the discharge/admit diagnosis, the need for outpatient follow up, to return to the emergency department if symptoms worsen or persist or if there are any questions or concerns that arise at home. ED course: Discussed physical exam findings with patient. Patient to follow-up with dentist in 2 to 3 days. All questions were answered. Return precautions discussed include worsening symptoms, or any other concerns. Administered Medications: No medications were administered Disposition: 16:29 Chart complete. ms3 Disposition Summary: 08/12/23 11:57 Discharge Ordered Notes: Location: Home ms3 Condition: Stable ms3 Diagnosis - Tooth pain ms3 Followup: ms3 - With: Richard Cole DDS - When: 2 - 3 days - Reason: Recheck today's complaints Discharge Instructions: - Discharge Summary Sheet ms3 - Dental Pain ms3 Forms: - Medication Reconciliation Form ms3 - Antibiotic Education ms3 - Prescription Opioid Use ms3 - Patient Portal Instructions ms3 - Leadership Thank You Letter ms3 Prescriptions: - acetaminophen-codeine 300-30 mg Oral tablet - take 1 tablet ORAL route every 6 hours as needed for pain; 6 tablet; Refills: ms3 0, Product Selection Permitted - penicillin V potassium 500 mg Oral tablet - take 1 tablet ORAL route every 6 hours; 28 tablet; Refills: 0, Product ms3 Selection Permitted Signatures: Reji Graham DO DO ms3 Amanda Rodriguez, RN RN mb9
== END 2023-08-12 12:17 | disposition home or self-care (01) ==
LOC: ER 11:33
DX: K08.89 Other specified disorders of teeth and supporting structures (principal)

== ENCOUNTER 2024-02-07 09:36 | Emergency (ER) | payer SELFPAY ==
--- OUTSIDE RECORDS SUMMARY | 2024-02-07 09:43 | XMS REPORT | Continuity of Care Document ---
Author Name Unknown Address [address] [facility] [address] [place] [address] [facility] thconnect Address [address] [facility]. [address] [place] [address] Care Team Providers Care [employer] Supervisor Name Role Phone Dayday Rey Primary Care Physician + [phone] LIZETTE LUGO Attending Clinician Unavail able [facility] Lizette DICKERSON Attending Clinician + Naomi Souza MD Attending Clinician + Kate Rome MD Attending Clinician [phone] Risk, Emn-Jlqrw-Lp/High Attending Clinician UnaMary Grace Magana Attending Clinician [phone] Ultrasound, Juan-Mfm Attending Clinician Dion Lo MD Attending Clinician [phone] TONIO ECHOLS Attending Clinician Unavailable Maninder GOMEZ, Jaclyn Bender Attending Clinician [phone] Radha Mehta MD Attending Clinician [phone] Doctor Unassigned, [place] Attending Clinician U anitaailable ARSALAN BLANDON Attending Clinician Unavail able Arsalan Blandon DO Attending Clinician [phone] DAYDAY GRAHAM Attending Clinician Unavailabl e Lab, Ang-Rmchp Attending Clinician Unavailable Santos CHANGE CONSULTANTDayday Attending Clinician [phone] Tara Umanzor Attending Clinician [phone] Tamiko Goncalves MD Attending Clinician [phone] Mickey MCLEOD, Paul Attending Clinician [phone] PAUL AREVALO Attending Clinician Unavailable theresa Attending Clinician Unavailable Altagracia Blandon MD Attending Clinician [phone] Yas Cordero Attending Clinician [phone] Herman KWOK, Virginie Galvez Attending Clinician UnavailKATE Aleman Admitting Clinician Unavailable JACLYN DUVAL Admitting Clinician Unavailable RADHA MEHTA Admitting Clinician Unavailable Naomi Souza MD Admitting Clinician + Jaclyn Duval MD Admitting Clinician [phone] Radha Mehta MD Admitting Clinician [phone] theresa Admitting Clinician Unavailable Altagracia Blandon MD Admitting Clinician [phone] Yas Cordero Admitting Clinician [phone] Payers Payer Name Policy Type Policy Number Effective Date Expirati on Date Source [facility] XAVIER BROWN [id number] 2020 00:00:00 MEDICAID PENDING PENDING 2020 00:00:00 Problems Condition Name Condition Details Condition Category Status Onset Date Resolution Date Last Treatment Date Treating Clinician Comments Source Other general counseling and advice for contracept mark management Other general counseling and advice for contracept mark management Disease Active 2021-0 7-14 00:00: 00 [facility] Well woman exam Well woman exam Disease Active 6-21 00:00: 00 [facility] History of tubal ligation History of tubal ligation Disease Active 6-21 00:00: 00 [facility] Single liveborn Single liveborn Disease Active 5-30 00:00: 00 [facility] (spontaneo us vaginal delivery) (spontaneo us vaginal delivery) Disease Active 530 00:00: 00 [facility] 37 weeks gestation of 37 weeks gestation of Disease Active 528 00:00: 00 [facility] 36 weeks gestation of 36 weeks gestation of Disease Active 522 00:00: 00 [facility] High-risk in third trimester High-risk in third trimester Disease Active 520 00:00: 00 [facility] Oral hypoglycem ic controlled White classifica tion A2 gestationa l diabetes mellitus (GDM) Oral hypoglycem ic controlled White classifica tion A2 gestationa l diabetes mellitus (GDM) Disease Active 520 00:00: 00 [facility] Abnormal finding in urine Abnormal finding in urine Disease Active 520 00:00: 00 [facility] Hematuria, unspecifie d type Hematuria, unspecifie d type Disease Active 520 00:00: 00 [facility] Diabetes mellitus complicati ng , antepartum Diabetes mellitus complicati ng , antepartum Disease Active 18 00:00: 00 [facility] Diabetes mellitus complicati ng , antepartum Diabetes mellitus complicati ng , antepartum Disease Active 18 00:00: 00 [facility] GDM (gestation al diabetes mellitus) GDM (gestation al diabetes mellitus) Disease Active 318 00:00: 00 [facility] Abnormal maternal glucose tolerance, antepartum Abnormal maternal glucose tolerance, antepartum Disease Active 3-10 00:00: 00 Overview: Formattin g of this note might be different from the original. Pending 3hr gtt [facility] Anemia of mother in , antepartum Anemia of mother in , antepartum Disease Active 3-05 00:00: 00 [facility] Dizziness and giddiness Dizziness and giddiness Disease Active 3-04 00:00: 00 [facility] Obesity (BMI 30-39.9) Obesity (BMI 30-39.9) Disease Active 2019-02 00:00: 00 [facility] Supervisio n of high risk in second trimester Supervisio n of high risk in second trimester Disease Active 2019-02 00:00: 00 [facility] Multiparit y Multiparit y Disease Active 2019-02 00:00: 00 [facility] Obesity complicati ng , childbirth , or puerperium , antepartum Obesity complicati ng , childbirth , or puerperium , antepartum Disease Active 2019-02 00:00: 00 [facility] Tubal ligation evaluation Tubal ligation evaluation Disease Active 2019-02 00:00: 00 [facility] Refused influenza vaccine Refused influenza vaccine Disease Active 2019-02 00:00: 00 [facility] Elevated BP without diagnosis of hypertensi on Elevated BP without diagnosis of hypertensi on Disease Active 2019-02 00:00: 00 [facility] Nausea and vomiting during Nausea and vomiting during Disease Active 2019-02 00:00: 00 [facility] screening for Down syndrome declined screening for Down syndrome declined Disease Active 2019-02 00:00: 00 [facility] Obesity in Obesity in Disease Active 2019-02 00:00: 00 [facility] Nexplanon removal Nexplanon removal Disease Active 2018-02 0- 00:00: 00 Overview: Placed 11/2018 removed 02/2019 [facility] Well woman exam Well woman exam Disease Active 2019-1 0-07 00:00: 00 [facility] Routine follow-up Routine follow-up Disease Active 2019-0 9-16 00:00: 00 [facility] Anemia, Anemia, Disease Active 20190 8-26 00:00: 00 [facility] Anemia, Anemia, Disease Active 20190 8-26 00:00: 00 [facility] 38 weeks gestation of 38 weeks gestation of Disease Active 20190 8-25 00:00: 00 [facility] Nausea & vomiting Nausea & vomiting Disease Active 20190 8-25 00:00: 00 [facility] Encounter for induction of labor Encounter for induction of labor Disease Active 20190 8 00:00: 00 [facility] Obesity (BMI 30-39.9) Obesity (BMI 30-39.9) Disease Active 20190 8-12 00:00: 00 [facility] Decreased movements in third trimester Decreased movements in third trimester Disease Active 20190 8-12 00:00: 00 [facility] 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 Disease Active 20190 8-09 00:00: 00 [facility] Pain of round ligament affecting , antepartum Pain of round ligament affecting , antepartum Disease Active 20190 5-20 00:00: 00 [facility] Vaginal yeast infection Vaginal yeast infection Disease Active 20190 3-13 00:00: 00 [facility] Headache in Headache in Disease Active 20190 3-04 00:00: 00 [facility] Nausea and vomiting during Nausea and vomiting during Disease Active 20190 2-04 00:00: 00 [facility] Chlamydia trachomati s infection of lower genitourin fiona sites Chlamydia trachomati s infection of lower genitourin fiona sites Disease Active 20190 1-08 00:00: 00 Overview: Jhon negative repeat at 36 weeks [facility] Abnormal maternal glucose tolerance, antepartum Abnormal maternal glucose tolerance, antepartum Disease Active 20190 1-05 00:00: 00 Overview: Passed early 3hr, will need 3hr at 28 weeks -passed [facility] Influenza vaccinatio n declined Influenza vaccinatio n declined Disease Active 02-20 00:00: 00 [facility] History of hypothyroi dism History of hypothyroi dism Disease Active 02-20 00:00: 00 Overview: No medicatio n, consider labs second trimester [facility] Rubella non-immune status, antepartum Rubella non-immune status, antepartum Disease Active 2013-02 00:00: 00 [facility] Obesity affecting in third trimester Obesity affecting in third trimester Disease Active 2013-02 00:00: 00 Overview: Formattin g of this note might be different from the original. 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 [facility] Supervisio n of high-risk Supervisio n of high-risk Disease Active 2013-02 00:00: 00 [facility] Allergies, Adverse Reactions, Alerts Allergy Name Allergy Type Status Severity Reaction(s) Onset Date Inactive Date Treating Clinician Comments Source No Known Allergie s DA Active U 06-04 00:00: 00 [facility] No Known Allergie s DA Active U 06-04 00:00: 00 [facility] NO KNOWN ALLERGIE S Drug Class Active [facility] Social History Social Habit Start Date Stop Date Quantity Comments Source ASSERTION 2019-11-08 00:00:00 [facility] Exposure to SARS-CoV-2 (event) 2020-07-31 00:00:00 2020-08-30 08:38:00 Not sure [facility] Alcohol intake 2019-12-06 00:00:00 2019-12-06 00:00:00 Current non-drinker of alcohol (finding) [facility] History of Social function 2019-12-03 00:00:00 2019-12-03 00:00:00 [facility] Tobacco use and exposure 2013-12-07 00:00:00 2013-12-07 00:00:00 Smokeless tobacco non-user [facility] Sex Assigned At 1995 00:00:00 1995 00:00:00 [facility] Smoking Status Start Date Stop Date Source Never smoked tobacco [facility] Medications Ordered Medication Name Filled Medication Name Start Date Stop Date Current Medication? Ordering Clinician Indication Dosage Frequency Signature (SIG) Comments Components Source HYDROcodone -acetaminop hen (NORCO 5) 5-325 mg tablet 1 tablet 07-16 01:56: 22 Yes 1{tbl} 1 tablet, Oral, Q6HPRN, Starting 07/15/20 at 2055, Until Discontinu ed, Routine, Pain (scale 7-10) [facility] rho(D) immune globulin (RHOGAM) syringe 300 mcg 07-16 01:39: 54 Yes 300ug 300 mcg, Intramuscu lar, ONCE, For 1 dose, Conditiona l, Routine [facility] ondansetron (ZOFRAN (PF)) injection 4 mg 07-16 01:39: 06 Yes 4mg 4 mg, Slow IV Push, Q8HPRN, Starting 07/15/20 at 2038, Until Discontinu ed, Routine, Nausea and Vomiting (N/V) [facility] simethicone (GAS RELIEF (SIMETHICON E)) chewable tablet 160 mg 07-16 01:39: 06 Yes 160mg 160 mg, Oral, PC+HSPRN, Starting 07/15/20 at 2038, Until Discontinu ed, Routine, Gas Univers [facility] acetaminoph en (TYLENOL) tablet 650 mg 07-16 01:39: 05 Yes 650mg 650 mg, Oral, Q6HPRN, Starting 07/15/20 at 2038, Until Discontinu ed, Routine, Pain (scale 1-3) [facility] diphenhydrA MINE (BENADRYL) tablet 25 mg 07-16 01:39: 05 Yes 25mg 25 mg, Oral, Q6HPRN, Starting 07/15/20 at 2038, Until Discontinu ed, Routine, Sleep, Itching [facility] diphenhydrA MINE-0.9 % sod.chlr (BENADRYL) 25 mg/50 mL piggyback 25 mg 07-16 01:39: 05 Yes 25mg 25 mg, IV Piggyback, Administer over 30 Minutes, Q6HPRN, Starting 07/15/20 at 2038, Until Discontinu ed, Routine, Itching [facility] docusate calcium (SURFAK) capsule 240 mg 07-16 01:39: 05 Yes 240mg 240 mg, Oral, QDAILYPRN, Starting 07/15/20 at 2038, Until Discontinu ed, Routine, Constipati on [facility] magnesium hydroxide (MILK OF MAGNESIA) 400 mg/5 mL suspension 30 mL 07-16 01:39: 05 Yes 30mL 30 mL, Oral, QDAILYPRN, Starting 07/15/20 at 2038, Until Discontinu ed, Routine, Constipati on [facility] benzocaine- menthol (DERMOPLAST ) 20-0.5 % topical spray 07-16 01:39: 05 Yes Topical, PRN, Starting 07/15/20 at 2038, Until Discontinu ed, Routine, Perineum discomfort [facility] acetaminoph en ADULT (OFIRMEV) injection 1,000 mg 07-16 01:00: 00 07-16 00:23 :00 No 1000mg 1,000 mg, IV Infusion, Administer over 15 Minutes, ONCE, 1 dose, 07/15/20 at 2000, Routine, PACU
In dication: Perioperat mark Patient [facility] ketorolac (TORADOL) injection 30 mg 07-16 00:01: 12 07-16 00:51 :00 No 30mg 30 mg, Slow IV Push, Q6HPRN, 1 dose, Starting 07/15/20 at 1901, Until 07/15/20 at 195, Routine, Pain (scale 4-6), PACU
Fa culty member approving Restricted medication : KELLEN KENNEDY [facility] vitamin w/FA tablet 07-16 00:00: 00 Yes [id number] 1{tbl} Take 1 tablet by mouth daily. [facility] ferrous sulfate 325 mg (65 mg iron) tablet 07-16 00:00: 00 Yes [id number] 325mg Take 1 tablet by mouth 2 (two) times daily. [facility] docusate calcium 240 mg capsule 07-16 00:00: 00 Yes [id number] 240mg Take 1 capsule by mouth once daily as needed for Constipati on. [facility] ibuprofen 600 mg tablet 07-16 00:00: 00 Yes [id number] 600mg Take 1 tablet by mouth every 6 (six) hours as needed for Pain (scale 4-6). [facility] acetaminoph en 325 mg tablet 07-16 00:00: 00 07-17 04:59 :00 No [id number] 650mg Take 2 tablets by mouth every 6 (six) hours as needed for Pain (scale 1-3). [facility] bupivacaine (preserv free) (SENSORCAIN E MPF) 0.25 % (2.5 mg/mL) injection 07-15 23:06: 00 Yes PRN, Starting 07/15/20 at 1806, Until Discontinu ed, Routine, Intra-op [facility] ibuprofen (IBU) tablet 600 mg 07-15 19:22: 05 Yes 600mg 600 mg, Oral, Q6HPRN, Starting 07/15/20 at 1422, Until Discontinu ed, Routine, Pain (scale 4-6) [facility] ibuprofen (IBU) tablet 600 mg 07-15 19:22: 00 07-15 19:25 :00 No 600mg 600 mg, Oral, ONCE, 1 dose, 07/15/20 at 1430, Routine [facility] ondansetron (ZOFRAN (PF)) injection 4 mg 07-15 15:54: 00 07-15 15:56 :00 No 4mg 4 mg, Slow IV Push, ONCE, 1 dose, 07/15/20 at 1100, Routine [facility] LR 1000 mL + oxytocin 20 units IV Solution 07-15 14:45: 00 07-15 17:23 :00 No 999mL/h 999 mL/hr, IV Infusion, ONCE, 07/15/20 at 0945, For 1 dose
In fuse 999 mL /hr & nbsp;over 30 minutes and then decrease rate to 125 mL/hr for the remainder.
[facility] pantoprazol e (PROTONIX) EC tablet 40 mg 07-15 14:00: 00 Yes 40mg 40 mg, Oral, DAILY, First dose on 07/15/20 at 0900, Until Discontinu ed, Routine [facility] lactated ringers IV infusion 500 mL 07-15 08:30: 00 07-15 07:48 :00 No 500mL at 999 mL/hr, 500 mL, IV Infusion, ONCE, 1 dose, 07/15/20 at 0330, Routine [facility] sodium citrate-cit gloria acid (BICITRA) 500-334 mg/5 mL solution 30 mL 07-15 07:27: 28 07-15 22:30 :00 No 30mL 30 mL, Oral, PRE-PROCED URE ONCE, 1 dose, Starting 07/15/20 at 0227, Until Discontinu ed, Routine, Surgery/Pr ocedure [facility] butalbital- acetaminoph en-caff (ESGIC) 50-325-40 mg tablet 2 tablet 07-15 07:15: 00 07-15 06:20 :00 No 2{tbl} 2 tablet, Oral, ONCE, 1 dose, 07/15/20 at 0215, Routine [facility] D5W-LR IV infusion 1,000 mL 07-15 04:00: 00 07-16 01:39 :54 No 1000mL at 125 mL/hr, IV Infusion, CONTINUOUS , Starting Fri07/14/20 at 2300, Until 07/15/20 at 2039, Routine [facility] Sliding Scale Insulin - Regular + Fsbg Testing 07-15 03:58: 17 07-16 01:39 :54 No Subcutaneo us, SEE-INSTRU CTIONS, Starting Fri07/14/20 at 2258, Until 07/15/20 at 2039, Routine [facility] sodium citrate-cit gloria acid (BICITRA) 500-334 mg/5 mL solution 30 mL 07-15 03:57: 09 07-15 07:47 :00 No 30mL 30 mL, Oral, PRE-PROCED URE ONCE, 1 dose, Starting Fri07/14/20 at 2257, Until Discontinu ed, Routine, Surgery/Pr ocedure [facility] metroNIDAZO LE 500 mg tablet 07-09 00:00: 00 07-16 00:00 :00 No [id number] 9109 500mg Take 1 tablet by mouth 2 (two) times daily. [facility] glyBURIDE 2.5 mg tablet 06-22 00:00: 00 07-16 00:00 :00 No [id number] Take 1 tab PO AC breakfast and 1 tab PO HS with snack [facility] pantoprazol e (PROTONIX) 40 mg EC tablet 06-22 00:00: 00 07-16 00:00 :00 No [id number] 40mg Take 1 tablet by mouth daily. [facility] proMETHazin e 25 mg tablet 06-22 00:00: 00 07-16 00:00 :00 No [id number] 25mg Take 1 tablet by mouth every 6 (six) hours as needed for Nausea and Vomiting (N/V). [facility] Lancets (ONETOUCH ULTRASOFT LANCETS) [facility] 05-04 00:00: 00 Yes [id number] Check blood glucose 4x daily [facility] Blood-Gluco se Meter (ONETOUCH ULTRA2 METER) Kit 05-04 00:00: 00 07-16 00:00 :00 No [id number] Check blood glucose 4x dialy [facility] Lancets (ONETOUCH ULTRASOFT LANCETS) [facility] 05-04 00:00: 07-16 00:00 :00 No [id number] Check blood glucose 4x daily [facility] blood sugar diagnostic (ONETOUCH VERIO TEST STRIPS) strip 05-04 00:00: 00 07-16 00:00 :00 No [id number] Check blood glucose 4x daily [facility] ascorbic acid, vitamin C, 500 mg tablet 04-26 00:00: 00 07-16 00:00 :00 No [id number] 500mg Take 1 tablet by mouth 3 (three) times daily. [facility] ferrous sulfate 325 mg (65 mg iron) tablet 04-26 00:00: 00 07-16 00:00 :00 No [id number] 325mg Take 1 tablet by mouth 2 (two) times daily. [facility] ferrous sulfate 325 mg (65 mg iron) tablet 04-21 00:00: 00 Yes [id number] 325mg Take 1 tablet by mouth 2 (two) times daily. [facility] ascorbic acid, vitamin C, 500 mg tablet 04-21 00:00: 00 Yes [id number] 500mg Take 1 tablet by mouth 3 (three) times daily. [facility] PNV 67-iron ps-folate no.1-dha (VITAFOL ULTRA) 29 mg iron- 1 mg-200 mg Cap 2019-02 2-15 00:00: 00 07-16 00:00 :00 No [id number] 1{capsu le} Take 1 capsule by mouth daily. [facility] PNV 67-iron ps-folate no.1-dha (VITAFOL ULTRA) 29 mg iron- 1 mg-200 mg Cap 2019-02 2-15 00:00: 00 07-16 00:00 :00 No [id number] 1{capsu le} Take 1 capsule by mouth daily. [facility] measles, mumps + rubella vac (M-M-R II) 1,000-12,50 0 TCID50/0.5 mL injection 0.5 mL 10-13 13:00: 00 10-13 17:27 :00 No .5mL 0.5 mL, Subcutaneo us, ONCE, 1 dose, 10/13/18 at 0800, Routine [facility] vitamin w/FA tablet 10-13 00:00: 00 12-02 00:00 :00 No [id number] 1{tbl} Take 1 tablet by mouth daily. [facility] docusate calcium 240 mg capsule 10-13 00:00: 12-02 00:00 :00 No [id number] 240mg Take 1 capsule by mouth once daily as needed for Constipati on. [facility] ferrous sulfate 325 mg (65 mg iron) tablet 10-13 00:00: 12-02 00:00 :00 No [id number] 325mg Take 1 tablet by mouth 2 (two) times daily. [facility] ibuprofen 600 mg tablet 10-13 00:00: 12-02 00:00 :00 No [id number] 600mg Take 1 tablet by mouth every 6 (six) hours as needed for Pain (scale 1-3) or Pain (scale 4-6) (Pain). Take with food or milk. [facility] human papillomav vac,9-katherine(P F) (GARDASIL 9 (PF)) vial 0.5 mL 10-12 10:32: 12 Yes .5mL 0.5 mL, Intramuscu lar, ONCE-PRIOR TO DISCHARGE, 1 dose, Starting Fri10/12/18 at 0532, Until Discontinu ed, Routine, Give vaccine prior to discharge [facility] acetaminoph en (TYLENOL) tablet 650 mg 10-12 10:32: 12 Yes 650mg 650 mg, Oral, Q6HPRN, Starting Fri10/12/18 at 0532, Until Discontinu ed, Routine, Pain (scale 1-3) [facility] ibuprofen (IBU) tablet 600 mg 10-12 10:32: 12 Yes 600mg 600 mg, Oral, Q6HPRN, Starting Fri10/12/18 at 0532, Until Discontinu ed, Routine, Pain (scale 4-6) [facility] diphenhydrA MINE (BENADRYL) tablet 25 mg 10-12 10:32: 12 Yes 25mg 25 mg, Oral, Q6HPRN, Starting Fri10/12/18 at 0532, Until Discontinu ed, Routine, Sleep, Itching [facility] ondansetron (ZOFRAN (PF)) injection 4 mg 10-12 10:32: 12 Yes 4mg 4 mg, Slow IV Push, Q8HPRN, Starting Fri10/12/18 at 0532, Until Discontinu ed, Routine, Nausea and Vomiting (N/V) [facility] simethicone (GAS RELIEF) chewable tablet 160 mg 10-12 10:32: 12 Yes 160mg 160 mg, Oral, PC+HSPRN, Starting Fri10/12/18 at 0532, Until Discontinu ed, Routine, Gas [facility] docusate calcium (SURFAK) capsule 240 mg 10-12 10:32: 12 Yes 240mg 240 mg, Oral, QDAILYPRN, Starting Fri10/12/18 at 0532, Until Discontinu ed, Routine, Constipati on [facility] magnesium hydroxide (MILK OF MAGNESIA) 400 mg/5 mL suspension 30 mL 10-12 10:32: 12 Yes 30mL 30 mL, Oral, QDAILYPRN, Starting Fri10/12/18 at 0532, Until Discontinu ed, Routine, Constipati on [facility] benzocaine- menthol (DERMOPLAST ) 20-0.5 % topical spray 10-12 10:32: 12 Yes Topical, PRN, Starting Fri10/12/18 at 0532, Until Discontinu ed, Routine, Perineum discomfort [facility] ondansetron (ZOFRAN (PF)) injection 4 mg 10-12 08:15: 00 10-12 07:21 :00 No 4mg 4 mg, Slow IV Push, ONCE, 1 dose, Fri10/12/18 at 0315, Routine [facility] LR 1000 mL + oxytocin 20 units IV Solution 10-12 06:45: 00 10-12 05:57 :00 No at 999 mL/hr, IV Infusion, ONCE, 1 dose, 10/12/18 at 0145, Routine [facility] sodium citrate-cit gloria acid (BICITRA) 500-334 mg/5 mL solution 30 mL 10-11 21:25: 17 10-11 21:43 :00 No 30mL 30 mL, Oral, PRE-PROCED URE ONCE, 1 dose, Starting 10/11/18 at 1625, Until Discontinu ed, Routine, Surgery/Pr ocedure [facility] LR 1000 mL + oxytocin 20 units IV Solution 10-11 17:44: 00 10-12 10:32 :17 No 2mU/min 2 radha-unit s/min (6 mL/hr), at 6 mL/hr, IV Infusion, TITRATE, Starting 10/11/18 at 1244, Until 10/12/18 at 0532, TERI, CTX q2m [facility] acetaminoph en-caff-but albital (ESGIC) per capsule 08-26 00:00: 00 12-02 00:00 :00 No [id number] 1{capsu le} Take 1 capsule by mouth every 6 (six) hours as needed for Pain. [facility] proMETHazin e 25 mg tablet 06-26 00:00: 00 12-02 00:00 :00 No [id number] 25mg Take 1 tablet by mouth every 6 (six) hours as needed for Nausea and Vomiting (N/V). [facility] acetaminoph en-caff-but albital (ESGIC) per capsule 06-26 00:00: 00 09-30 00:00 :00 No [id number] 1{capsu le} Take 1 capsule by mouth every 6 (six) hours as needed (headache) . [facility] proMETHazin e 25 mg tablet -17 00:00: 00 09-30 00:00 :00 No [id number] 25mg Take 1 tablet by mouth every 6 (six) hours as needed for Nausea and Vomiting (N/V). [facility] No known medications No Un indra [facility] No known medications No Un indra [facility] No known medications No Un indra [facility] Immunizations Ordered Immunization Name Filled Immunization Name Date Status Comments Source SARS-COV-2 COVID-19 MODERNA VACCINE 2020-06-20 00:00:00 Completed [facility] SARS-COV-2 COVID-19 MODERNA VACCINE 2020-06-20 00:00:00 Completed [facility] SARS-COV-2 COVID-19 MODERNA VACCINE 2020-06-20 00:00:00 Completed [facility] SARS-COV-2 COVID-19 MODERNA VACCINE 2020-06-20 00:00:00 Completed [facility] [facility] SARS-COV-2 COVID-19 MODERNA VACCINE 2020-06-20 00:00:00 Completed [facility] SARS-COV-2 COVID-19 MODERNA VACCINE 2020-06-20 00:00:00 Completed [facility] SARS-COV-2 COVID-19 MODERNA VACCINE 2020-06-20 00:00:00 Completed [facility] SARS-COV-2 COVID-19 MODERNA VACCINE 2020-06-20 00:00:00 Completed [facility] SARS-COV-2 COVID-19 MODERNA VACCINE 2020-06-20 00:00:00 Completed [facility] SARS-COV-2 COVID-19 MODERNA VACCINE 2020-06-20 00:00:00 Completed [facility] SARS-COV-2 COVID-19 MODERNA VACCINE 2020-06-20 00:00:00 Completed [facility] SARS-COV-2 COVID-19 MODERNA VACCINE 2020-06-20 00:00:00 Completed [facility] SARS-COV-2 COVID-19 MODERNA VACCINE 2020-06-20 00:00:00 Completed [facility] SARS-COV-2 COVID-19 MODERNA VACCINE 2020-06-20 00:00:00 Completed [facility] SARS-COV-2 COVID-19 MODERNA VACCINE 2020-06-20 00:00:00 Completed [facility] SARS-COV-2 COVID-19 MODERNA VACCINE 2020-05-23 00:00:00 Completed [facility] SARS-COV-2 COVID-19 MODERNA VACCINE 2020-05-23 00:00:00 Completed [facility] SARS-COV-2 COVID-19 MODERNA VACCINE 2020-05-23 00:00:00 Completed [facility] SARS-COV-2 COVID-19 MODERNA VACCINE 2020-05-23 00:00:00 Completed [facility] SARS-COV-2 COVID-19 MODERNA VACCINE 2020-05-23 00:00:00 Completed [facility] SARS-COV-2 COVID-19 MODERNA VACCINE 2020-05-23 00:00:00 Completed [facility] SARS-COV-2 COVID-19 MODERNA VACCINE 2020-05-23 00:00:00 Completed [facility] SARS-COV-2 COVID-19 MODERNA VACCINE 2020-05-23 00:00:00 Completed [facility] SARS-COV-2 COVID-19 MODERNA VACCINE 2020-05-23 00:00:00 Completed [facility] SARS-COV-2 COVID-19 MODERNA VACCINE 2020-05-23 00:00:00 Completed [facility] SARS-COV-2 COVID-19 MODERNA VACCINE 2020-05-23 00:00:00 Completed [facility] SARS-COV-2 COVID-19 MODERNA VACCINE 2020-05-23 00:00:00 Completed [facility] SARS-COV-2 COVID-19 MODERNA VACCINE 2020-05-23 00:00:00 Completed [facility] SARS-COV-2 COVID-19 MODERNA VACCINE 2020-05-23 00:00:00 Completed [facility] SARS-COV-2 COVID-19 MODERNA VACCINE 2020-05-23 00:00:00 Completed [facility] SARS-COV-2 COVID-19 MODERNA VACCINE 2020-05-23 00:00:00 Completed [facility] SARS-COV-2 COVID-19 MODERNA VACCINE 2020-05-23 00:00:00 Completed [facility] SARS-COV-2 COVID-19 MODERNA VACCINE 2020-05-23 00:00:00 Completed [facility] SARS-COV-2 COVID-19 MODERNA VACCINE 2020-05-23 00:00:00 Completed [facility] SARS-COV-2 COVID-19 MODERNA VACCINE 2020-05-23 00:00:00 Completed [facility] SARS-COV-2 COVID-19 MODERNA VACCINE 2020-05-23 00:00:00 Completed [facility] TDAP 2020-05-08 00:00:00 Completed [facility] TDAP 2020-05-08 00:00:00 Completed [facility] TDAP 2020-05-08 00:00:00 Completed [facility] TDAP 2020-05-08 00:00:00 Completed [facility] TDAP 2020-05-08 00:00:00 Completed [facility] TDAP 2020-05-08 00:00:00 Completed [facility] TDAP 2020-05-08 00:00:00 Completed [facility] TDAP 2020-05-08 00:00:00 Completed [facility] TDAP 2020-05-08 00:00:00 Completed [facility] TDAP 2020-05-08 00:00:00 Completed [facility] TDAP 2020-05-08 00:00:00 Completed [facility] TDAP 2020-05-08 00:00:00 Completed [facility] TDAP 2020-05-08 00:00:00 Completed [facility] TDAP 2020-05-08 00:00:00 Completed [facility] TDAP 2020-05-08 00:00:00 Completed [facility] TDAP 2020-05-08 00:00:00 Completed [facility] TDAP 2020-05-08 00:00:00 Completed [facility] TDAP 2020-05-08 00:00:00 Completed [facility] TDAP 2020-05-08 00:00:00 Completed [facility] TDAP 2020-05-08 00:00:00 Completed [facility] TDAP 2020-05-08 00:00:00 Completed [facility] TDAP 2020-05-08 00:00:00 Completed [facility] TDAP 2020-05-08 00:00:00 Completed [facility] TDAP 2020-05-08 00:00:00 Completed [facility] TDAP 2020-05-08 00:00:00 Completed [facility] TDAP 2020-05-08 00:00:00 Completed [facility] MMR 2018-10-13 00:00:00 Completed [facility] MMR 2018-10-13 00:00:00 Completed [facility] MMR 2018-10-13 00:00:00 Completed [facility] MMR 2018-10-13 00:00:00 Completed [facility] MMR 2018-10-13 00:00:00 Completed [facility] MMR 2018-10-13 00:00:00 Completed [facility] MMR 2018-10-13 00:00:00 Completed [facility] MMR 2018-10-13 00:00:00 Completed [facility] MMR 2018-10-13 00:00:00 Completed [facility] MMR 2018-10-13 00:00:00 Completed [facility] MMR 2018-10-13 00:00:00 Completed [facility] MMR 2018-10-13 00:00:00 Completed [facility] MMR 2018-10-13 00:00:00 Completed [facility] MMR 2018-10-13 00:00:00 Completed [facility] MMR 2018-10-13 00:00:00 Completed [facility] MMR 2018-10-13 00:00:00 Completed [facility] MMR 2018-10-13 00:00:00 Completed [facility] MMR 2018-10-13 00:00:00 Completed [facility] MMR 2018-10-13 00:00:00 Completed [facility] MMR 2018-10-13 00:00:00 Completed [facility] MMR 2018-10-13 00:00:00 Completed [facility] MMR 2018-10-13 00:00:00 Completed [facility] MMR 2018-10-13 00:00:00 Completed [facility] MMR 2018-10-13 00:00:00 Completed [facility] MMR 2018-10-13 00:00:00 Completed [facility] MMR 2018-10-13 00:00:00 Completed [facility] MMR 2018-10-13 00:00:00 Completed [facility] MMR 2018-10-13 00:00:00 Completed [facility] MMR 2018-10-13 00:00:00 Completed [facility] MMR 2018-10-13 00:00:00 Completed [facility] MMR 2018-10-13 00:00:00 Completed [facility] MMR 2018-10-13 00:00:00 Completed [facility] MMR 2018-10-13 00:00:00 Completed [facility] MMR 2018-10-13 00:00:00 Completed [facility] MMR 2018-10-13 00:00:00 Completed [facility] MMR 2018-10-13 00:00:00 Completed [facility] MMR 2018-10-13 00:00:00 Completed [facility] MMR 2018-10-13 00:00:00 Completed [facility] MMR 2018-10-13 00:00:00 Completed [facility] MMR 2018-10-13 00:00:00 Completed [facility] MMR 2018-10-13 00:00:00 Completed [facility] MMR 2018-10-13 00:00:00 Completed [facility] MMR 2018-10-13 00:00:00 Completed [facility] MMR 2018-10-13 00:00:00 Completed [facility] MMR 2018-10-13 00:00:00 Completed [facility] MMR 2018-10-13 00:00:00 Completed [facility] TDAP (ADACEL) VACCINE 2018-07-29 00:00:00 Completed [facility] TDAP (ADACEL) VACCINE 2018-07-29 00:00:00 Completed [facility] TDAP (ADACEL) VACCINE 2018-07-29 00:00:00 Completed [facility] TDAP (ADACEL) VACCINE 2018-07-29 00:00:00 Completed [facility] TDAP (ADACEL) VACCINE 2018-07-29 00:00:00 Completed [facility] TDAP (ADACEL) VACCINE 2018-07-29 00:00:00 Completed [facility] TDAP (ADACEL) VACCINE 2018-07-29 00:00:[address] [facility] TDAP (ADACEL) VACCINE 2018-07-29 00:00:[address] [facility] TDAP (ADACEL) VACCINE 2018-07-29 00:00:[address] [facility] TDAP (ADACEL) VACCINE 2018-07-29 00:00:00 Completed [facility] TDAP (ADACEL) VACCINE 2018-07-29 00:00:[address] [facility] TDAP (ADACEL) VACCINE 2018-07-29 00:00:[address] [facility] TDAP (ADACEL) VACCINE 2018-07-29 00:00:[address] [facility] TDAP (ADACEL) VACCINE 2018-07-29 00:00:00 Completed [facility] TDAP (ADACEL) VACCINE 2018-07-29 00:00:00 Completed [facility] TDAP (ADACEL) VACCINE 2018-07-29 00:00:00 Completed [facility] TDAP (ADACEL) VACCINE 2018-07-29 00:00:00 Completed [facility] TDAP (ADACEL) VACCINE 2018-07-29 00:00:00 Completed [facility] TDAP (ADACEL) VACCINE 2018-07-29 00:00:[address] [facility] TDAP (ADACEL) VACCINE 2018-07-29 00:00:00 Completed [facility] TDAP (ADACEL) VACCINE 2018-07-29 00:00:00 Completed [facility] TDAP (ADACEL) VACCINE 2018-07-29 00:00:[address] [facility] TDAP (ADACEL) VACCINE 2018-07-29 00:00:[address] [facility] TDAP (ADACEL) VACCINE 2018-07-29 00:00:[address] [facility] TDAP (ADACEL) VACCINE 2018-07-29 00:00:[address] [facility] TDAP (ADACEL) VACCINE 2018-07-29 00:00:[address] [facility] TDAP (ADACEL) VACCINE 2018-07-29 00:00:[address] [facility] TDAP (ADACEL) VACCINE 2018-07-29 00:00:00 Completed [facility] TDAP (ADACEL) VACCINE 2018-07-29 00:00:[address] [facility] TDAP (ADACEL) VACCINE 2018-07-29 00:00:[address] [facility] TDAP (ADACEL) VACCINE 2018-07-29 00:00:[address] [facility] TDAP (ADACEL) VACCINE 2018-07-29 00:00:[address] [facility] TDAP (ADACEL) VACCINE 2018-07-29 00:00:[address] [facility] TDAP (ADACEL) VACCINE 2018-07-29 00:00:[address] [facility] TDAP (ADACEL) VACCINE 2018-07-29 00:00:00 Completed [facility] TDAP (ADACEL) VACCINE 2018-07-29 00:00:00 Completed [facility] TDAP (ADACEL) VACCINE 2018-07-29 00:00:00 Completed [facility] TDAP (ADACEL) VACCINE 2018-07-29 00:00:00 Completed [facility] TDAP (ADACEL) VACCINE 2018-07-29 00:00:00 Completed [facility] TDAP (ADACEL) VACCINE 2018-07-29 00:00:00 Completed [facility] TDAP (ADACEL) VACCINE 2018-07-29 00:00:[address] [facility] TDAP (ADACEL) VACCINE 2018-07-29 00:00:00 Completed [facility] TDAP (ADACEL) VACCINE 2018-07-29 00:00:00 Completed [facility] TDAP (ADACEL) VACCINE 2018-07-29 00:00:[address] [facility] TDAP (ADACEL) VACCINE 2018-07-29 00:00:[address] [facility] TDAP (ADACEL) VACCINE 2018-07-29 00:00:[address] [facility] TDAP (ADACEL) VACCINE 2018-07-29 00:00:[address] [facility] TDAP (ADACEL) VACCINE 2018-07-29 00:00:[address] [facility] TDAP (ADACEL) VACCINE 2018-07-29 00:00:[address] [facility] TDAP (ADACEL) VACCINE 2018-07-29 00:00:00 Completed [facility] TDAP (ADACEL) VACCINE 2018-07-29 00:00:00 Completed [facility] TDAP (ADACEL) VACCINE 2018-07-29 00:00:00 Completed [facility] TDAP (ADACEL) VACCINE 2018-07-29 00:00:00 Completed [facility] TDAP (ADACEL) VACCINE 2018-07-29 00:00:00 Completed [facility] TDAP (ADACEL) VACCINE 2018-07-29 00:00:00 Completed [facility] TDAP (ADACEL) VACCINE 2018-07-29 00:00:00 Completed [facility] TDAP 2009-02-17 00:00:00 Completed [facility] TDAP 2009-02-17 00:00:00 Completed [facility] TDAP 2009-02-17 00:00:00 Completed [facility] TDAP 2009-02-17 00:00:00 Completed [facility] TDAP 2009-02-17 00:00:00 Completed [facility] TDAP 2009-02-17 00:00:00 Completed [facility] TDAP 2009-02-17 00:00:00 Completed [facility] TDAP 2009-02-17 00:00:00 Completed [facility] TDAP 2009-02-17 00:00:00 Completed [facility] TDAP 2009-02-17 00:00:00 Completed [facility] TDAP 2009-02-17 00:00:00 Completed [facility] TDAP 2009-02-17 00:00:00 Completed [facility] TDAP 2009-02-17 00:00:00 Completed [facility] TDAP 2009-02-17 00:00:00 Completed [facility] TDAP 2009-02-17 00:00:00 Completed [facility] TDAP 2009-02-17 00:00:00 Completed [facility] TDAP 2009-02-17 00:00:00 Completed [facility] TDAP 2009-02-17 00:00:00 Completed [facility] TDAP 2009-02-17 00:00:00 Completed [facility] TDAP 2009-02-17 00:00:00 Completed [facility] TDAP 2009-02-17 00:00:00 Completed [facility] Tdap 2009-02-17 00:00:00 Completed [facility] Tdap 2009-02-17 00:00:00 Completed [facility] Tdap 2009-02-17 00:00:00 Completed [facility] Tdap 2009-02-17 00:00:00 Completed [facility] Tdap 2009-02-17 00:00:00 Completed [facility] Tdap 2009-02-17 00:00:00 Completed [facility] Tdap 2009-02-17 00:00:00 Completed [facility] Tdap 2009-02-17 00:00:00 Completed [facility] Tdap 2009-02-17 00:00:00 Completed [facility] Tdap 2009-02-17 00:00:00 Completed [facility] Tdap 2009-02-17 00:00:00 Completed [facility] Tdap 2009-02-17 00:00:00 Completed [facility] Tdap 2009-02-17 00:00:00 Completed [facility] Tdap 2009-02-17 00:00:00 Completed [facility] Tdap 2009-02-17 00:00:00 Completed [facility] TDAP 2009-02-17 00:00:00 Completed [facility] TDAP 2009-02-17 00:00:00 Completed [facility] TDAP 2009-02-17 00:00:00 Completed [facility] TDAP 2009-02-17 00:00:00 Completed [facility] TDAP 2009-02-17 00:00:00 Completed [facility] TDAP 2009-02-17 00:00:00 Completed [facility] TDAP 2009-02-17 00:00:00 Completed [facility] TDAP 2009-02-17 00:00:00 Completed [facility] TDAP 2009-02-17 00:00:00 Completed [facility] TDAP 2009-02-17 00:00:00 Completed [facility] TDAP 2009-02-17 00:00:00 Completed [facility] TDAP 2009-02-17 00:00:00 Completed [facility] TDAP 2009-02-17 00:00:00 Completed [facility] TDAP 2009-02-17 00:00:00 Completed [facility] TDAP 2009-02-17 00:00:00 Completed [facility] TDAP 2009-02-17 00:00:00 Completed [facility] TDAP 2009-02-17 00:00:00 Completed [facility] TDAP 2009-02-17 00:00:00 Completed [facility] TDAP 2009-02-17 00:00:00 Completed [facility] TDAP 2009-02-17 00:00:00 Completed [facility] TDAP Unknown Completed [facility] MMR Unknown Completed [facility] TDAP Unknown Completed [facility] MMR Unknown Completed [facility] TDAP Unknown Completed [facility] MMR Unknown [facility]pleted [facility] TDAP Unknown Completed [facility] MMR Unknown Completed [facility] TDAP Unknown Completed [facility] MMR Unknown Completed [facility] TDAP Unknown Completed [facility] MMR Unknown Completed [facility] Vital Signs Vital Name Observation Time Observation Value Comments S ource Systolic blood pressure 2020-08-30 13:38:00 125 mm[Hg] [facility] Diastolic blood pressure 2020-08-30 13:38:00 80 mm[Hg] [facility] Heart rate 2020-08-30 13:38:00 67 /min [facility] Body temperature 2020-08-30 13:38:00 36.5 Anel [facility] Respiratory rate 2020-08-30 13:38:00 16 /min [facility] Body height 2020-08-30 13:38:00 170.2 cm [facility] Body weight 2020-08-30 13:38:00 103.023 kg [facility] BMI 2020-08-30 13:38:00 35.57 kg/m2 [facility] Systolic blood pressure 2020-08-07 14:31:00 118 mm[Hg] [facility] Diastolic blood pressure 2020-08-07 14:31:00 79 mm[Hg] [facility] Heart rate 2020-08-07 14:31:00 60 /min [facility] Body [facility] 2020-08-07 14:31:00 36.83 Anel [facility] Respiratory rate 2020-08-07 14:31:00 16 /min [facility] Body height 2020-08-07 14:31:00 170.2 cm [facility] Body weight 2020-08-07 14:31:00 101.379 kg [facility] BMI 2020-08-07 14:31:00 35.01 kg/m2 [facility] Systolic blood pressure 2020-07-16 12:54:00 124 mm[Hg] [facility] Diastolic blood pressure 2020-07-16 12:54:00 74 mm[Hg] [facility] Heart rate 2020-07-16 12:54:00 67 /min [facility] Body temperature 2020-07-16 12:54:00 36.22 Anel [facility] Respiratory rate 2020-07-16 12:54:00 18 /min [facility] Oxygen saturation in Arterial blood by Pulse oximetry 2020-07-16 12:54:00 97 /min [facility] Systolic blood pressure 2020-07-15 15:20:00 120 mm[Hg] [facility] Diastolic blood pressure 2020-07-15 15:20:00 53 mm[Hg] [facility] Heart rate 2020-07-15 15:20:00 85 /min [facility] Respiratory rate 2020-07-15 15:20:00 18 /min [facility] Oxygen saturation in Arterial blood by Pulse oximetry 2020-07-15 15:20:00 100 /min [facility] Body temperature 2020-07-15 14:20:00 36.72 Anel [facility] Systolic blood pressure 2020-07-10 19:56:00 130 mm[Hg] [facility] Diastolic blood pressure 2020-07-10 19:56:00 81 mm[Hg] [facility] Heart rate 2020-07-10 19:56:00 87 /min [facility] Body temperature 2020-07-10 19:56:00 36.78 Anel [facility] Respiratory rate 2020-07-10 19:56:00 16 /min [facility] Body height 2020-07-10 19:56:00 170.2 cm [facility] Body weight 2020-07-10 19:56:00 111.613 kg [facility] BMI 2020-07-10 19:56:00 38.54 kg/m2 [facility] Systolic blood pressure 2020-07-06 19:35:00 132 mm[Hg] [facility] Diastolic blood pressure 2020-07-06 19:35:00 72 mm[Hg] [facility] Heart rate 2020-07-06 19:35:00 98 /min [facility] [facility] Body temperature 2020-07-06 19:35:00 36.78 Anel [facility] Respiratory rate 2020-07-06 19:35:00 16 /min [facility] Body height 2020-07-06 19:35:00 170.2 cm [facility] Body weight 2020-07-06 19:35:00 110.224 kg [facility] BMI 2020-07-06 19:35:00 38.06 kg/m2 [facility] Systolic blood pressure 2020-07-03 19:46:00 125 mm[Hg] [facility] Diastolic blood pressure 2020-07-03 19:46:00 79 mm[Hg] [facility] Heart rate 2020-07-03 19:46:00 99 /min Un[facility] Body temperature 2020-07-03 19:46:00 36.89 Anel [facility] Respiratory rate 2020-07-03 19:46:00 16 /min [facility] Body height 2020-07-03 19:46:00 170.2 cm [facility] Body weight 2020-07-03 19:46:00 110.309 kg [facility] BMI 2020-07-03 19:46:00 38.09 kg/m2 [facility] Systolic blood pressure 2020-06-29 18:35:00 135 mm[Hg] [facility] Diastolic blood pressure 2020-06-29 18:35:00 71 mm[Hg] [facility] Heart rate 2020-06-29 18:35:00 94 /min Un[facility] Body temperature 2020-06-29 18:35:00 36.44 Anel [facility] Respiratory rate 2020-06-29 18:35:00 16 /min [facility] Body height 2020-06-29 18:35:00 170.2 cm [facility] Body weight 2020-06-29 18:35:00 109.487 kg [facility] BMI 2020-06-29 18:35:00 37.80 kg/m2 [facility] Systolic blood pressure 2020-06-26 19:04:00 137 mm[Hg] [facility] Diastolic blood pressure 2020-06-26 19:04:00 79 mm[Hg] [facility] Heart rate 2020-06-26 19:04:00 97 /min Un[facility] Body temperature 2020-06-26 19:04:00 36.89 Anel [facility] Respiratory rate 2020-06-26 19:04:00 16 /min [facility] Body height 2020-06-26 19:04:00 170.2 cm [facility] Body weight 2020-06-26 19:04:00 110.252 kg [facility] BMI 2020-06-26 19:04:00 38.07 kg/m2 [facility] Systolic blood pressure 2020-06-22 14:09:00 127 mm[Hg] [facility] Diastolic blood pressure 2020-06-22 14:09:00 72 mm[Hg] [facility] Heart rate 2020-06-22 14:09:00 94 /min Unive [facility] Body temperature 2020-06-22 14:09:00 36.67 Anel [facility] Respiratory rate 2020-06-22 14:09:00 16 /min [facility] Body height 2020-06-22 14:09:00 170.2 cm [facility] weight 2020-06-22 14:09:00 108.977 kg [facility] BMI 2020-06-22 14:09:00 37.63 kg/m2 [facility] Heart rate 2020-06-13 23:55:00 105 /min [facility] Oxygen saturation in Arterial blood by Pulse oximetry 2020-06-13 23:55:00 100 /min [facility] Systolic blood pressure 2020-06-13 23:30:00 138 mm[Hg] [facility] Diastolic blood pressure 2020-06-13 23:30:00 76 mm[Hg] [facility] Body temperature 2020-06-13 23:17:00 36.89 Anel [facility] Respiratory rate 2020-06-13 23:17:00 18 /min [facility] Body height 2020-06-13 23:17:00 170.2 cm [facility] Body weight 2020-06-13 23:17:00 108.773 kg [facility] BMI 2020-06-13 23:17:00 37.56 kg/m2 [facility] Systolic blood pressure 2020-06-06 00:45:00 146 mm[Hg] [facility] Diastolic blood pressure 2020-06-06 00:45:00 84 mm[Hg] [facility] Heart rate 2020-06-06 00:45:00 99 /min [facility] saturation in Arterial blood by Pulse oximetry 2020-06-06 00:45:00 100 /min [facility] Body temperature 2020-06-05 23:36:00 37.06 Anel [facility] Respiratory rate 2020-06-05 23:36:00 18 /min [facility] Body height 2020-06-05 23:36:00 170.2 cm [facility] Body weight 2020-06-05 23:36:00 109.045 kg [facility] BMI 2020-06-05 23:36:00 37.65 kg/m2 [facility] Heart rate 2020-05-31 02:00:00 99 [facility] Oxygen saturation in Arterial blood by Pulse oximetry 2020-05-31 01:45:00 99 /min [facility] Systolic blood pressure 2020-05-31 01:15:00 134 mm[Hg] [facility] Diastolic blood pressure 2020-05-31 01:15:00 70 mm[Hg] [facility] Body temperature 2020-05-31 01:15:00 36.83 Anel [facility] Respiratory rate 2020-05-31 01:15:00 20 /min [facility] Body height 2020-05-31 01:15:00 170.2 cm [facility] Body weight 2020-05-31 01:15:00 108.863 kg [facility] BMI 2020-05-31 01:15:00 37.59 kg/m2 [facility] Systolic blood pressure 2020-05-22 15:40:00 124 mm[Hg] [facility] Diastolic blood pressure 2020-05-22 15:40:00 72 mm[Hg] [facility] Heart rate 2020-05-22 15:40:00 90 /min Unive [facility] Body temperature 2020-05-22 15:40:00 36.89 Anel [facility] Respiratory rate 2020-05-22 15:40:00 16 /min [facility] Body height 2020-05-22 15:40:00 170.2 cm [facility] Body weight 2020-05-22 15:40:00 107.134 kg [facility] BMI 2020-05-22 15:40:00 36.99 kg/m2 [facility] Systolic blood pressure 2020-05-08 14:33:00 127 mm[Hg] [facility] Diastolic blood pressure 2020-05-08 14:33:00 74 mm[Hg] [facility] Heart rate 2020-05-08 14:32:00 99 /min [facility] Body temperature 2020-05-08 14:32:00 36.61 Anel [facility] Respiratory rate 2020-05-08 14:32:00 16 /min [facility] Body height 2020-05-08 14:32:00 170.2 cm [facility] Body weight 2020-05-08 14:32:00 107.106 kg [facility] BMI 2020-05-08 14:32:00 36.98 kg/m2 [facility] Systolic blood pressure 2020-04-25 15:50:00 139 mm[Hg] [facility] Diastolic blood pressure 2020-04-25 15:50:00 83 mm[Hg] [facility] Heart rate 2020-04-25 15:06:00 111 /min [facility] Body temperature 2020-04-25 15:06:00 36.72 Anel [facility] Respiratory rate 2020-04-25 15:06:00 16 /min [facility] Body height 2020-04-25 15:06:00 170.2 cm [facility] Body weight 2020-04-25 15:06:00 106.17 kg [facility] BMI 2020-04-25 15:06:00 36.66 kg/m2 [facility] Systolic blood pressure 2020-04-20 16:25:00 123 mm[Hg] [facility] Diastolic blood pressure 2020-04-20 16:25:00 68 mm[Hg] [facility] Heart rate 2020-04-20 16:25:00 88 /min Unive [facility] Body temperature 2020-04-20 16:25:00 36.61 Anel [facility] Respiratory rate 2020-04-20 16:25:00 16 /min [facility] Body height 2020-04-20 16:25:00 170.2 cm [facility] Body weight 2020-04-20 16:25:00 105.858 kg [facility] BMI 2020-04-20 16:25:00 36.55 kg/m2 [facility] Systolic blood pressure 2020-02-29 19:10:00 134 mm[Hg] [facility] Diastolic blood pressure 2020-02-29 19:10:00 80 mm[Hg] [facility] Heart rate 2020-02-29 19:10:00 100 /min Unive [facility] Body temperature 2020-02-29 19:10:00 36.72 Anel [facility] Respiratory rate 2020-02-29 19:10:00 16 /min [facility] Body height 2020-02-29 19:10:00 170.2 cm [facility] Body weight 2020-02-29 19:10:00 100.018 kg [facility] BMI 2020-02-29 19:10:00 34.54 kg/m2 [facility] Systolic blood pressure 2020-02-01 19:50:00 138 mm[Hg] [facility] Diastolic blood pressure 2020-02-01 19:50:00 73 mm[Hg] [facility] Heart rate 2020-02-01 19:50:00 86 /min Unive [facility] Body temperature 2020-02-01 19:50:00 36.83 Anel [facility] Respiratory rate 2020-02-01 19:50:00 16 /min [facility] Body height 2020-02-01 19:50:00 170.2 cm [facility] Body weight 2020-02-01 19:50:00 98.544 kg [facility] BMI 2020-02-01 19:50:00 34.03 kg/m2 [facility] Systolic blood pressure 2020-01-04 20:39:00 135 mm[Hg] [facility] Diastolic blood pressure 2020-01-04 20:39:00 75 mm[Hg] [facility] Heart rate 2020-01-04 20:38:00 94 /min Unive [facility] Body temperature 2020-01-04 20:38:00 36.5 Anel [facility] Respiratory rate 2020-01-04 20:38:00 16 /min [facility] Body height 2020-01-04 20:38:00 170.2 cm [facility] Body weight 2020-01-04 20:38:00 99.139 kg [facility] BMI 2020-01-04 20:38:00 34.23 kg/m2 [facility] Systolic blood pressure 2019-12-03 20:12:00 128 mm[Hg] [facility] Diastolic blood pressure 2019-12-03 20:12:00 68 mm[Hg] [facility] Heart rate 2019-12-03 19:16:00 90 /min Unive [facility] Body temperature 2019-12-03 19:16:00 36.61 Anel [facility] Respiratory rate 2019-12-03 19:16:00 18 /min [facility] Body height 2019-12-03 19:16:00 170.2 cm [facility] Body weight 2019-12-03 19:16:00 102.059 kg [facility] BMI 2019-12-03 19:16:00 35.24 kg/m2 [facility] Oxygen saturation in Arterial blood by Pulse oximetry 2019-12-03 19:16:00 100 /min [facility] Systolic blood pressure 2019-03-12 20:41:00 132 mm[Hg] [facility] Diastolic blood pressure 2019-03-12 20:41:00 73 mm[Hg] [facility] Heart rate 2019-03-12 20:41:00 95 /min Unive [facility] Body temperature 2019-03-12 20:41:00 36.78 Anel [facility] Respiratory rate 2019-03-12 20:41:00 16 /min [facility] Body height 2019-03-12 20:41:00 170.2 cm [facility] Body weight 2019-03-12 20:41:00 89.841 kg [facility] BMI 2019-03-12 20:41:00 31.02 kg/m2 [facility] Systolic blood pressure 2019-03-12 20:41:00 132 mm[Hg] [facility] Diastolic blood pressure 2019-03-12 20:41:00 73 mm[Hg] [facility] Heart rate 2019-03-12 20:41:00 95 /min Unive [facility] Body temperature 2019-03-12 20:41:00 36.78 Anel [facility] Respiratory rate 2019-03-12 20:41:00 16 /min [facility] Body height 2019-03-12 20:41:00 170.2 cm [facility] Body weight 2019-03-12 20:41:00 89.841 kg [facility] BMI 2019-03-12 20:41:00 31.02 kg/m2 [facility] Systolic blood pressure 2018-11-02 14:26:00 113 mm[Hg] [facility] Diastolic blood pressure 2018-11-02 14:26:00 67 mm[Hg] [facility] Heart rate 2018-11-02 14:26:00 50 /min Unive [facility] Body temperature 2018-11-02 14:26:00 36.61 Anel [facility] Respiratory rate 2018-11-02 14:26:00 16 /min [facility] Body height 2018-11-02 14:26:00 170.2 cm [facility] Body weight 2018-11-02 14:26:00 86.779 kg [facility] BMI 2018-11-02 14:26:00 29.96 kg/m2 [facility] Systolic blood pressure 2018-10-13 13:00:00 125 mm[Hg] [facility] Diastolic blood pressure 2018-10-13 13:00:00 68 mm[Hg] [facility] Heart rate 2018-10-13 13:00:00 69 /min Unive [facility] Body temperature 2018-10-13 13:00:00 36.83 Anel [facility] Respiratory rate 2018-10-13 13:00:00 18 /min [facility] Oxygen saturation in Arterial blood by Pulse oximetry 2018-10-13 13:00:00 98 /min [facility] Body height 2018-10-11 14:30:00 170.2 cm [facility] Body weight 2018-10-11 14:30:00 96.48 kg [facility] BMI 2018-10-11 14:30:00 33.31 kg/m2 [facility] Systolic blood pressure 2018-10-07 16:39:00 129 mm[Hg] [facility] Diastolic blood pressure 2018-10-07 16:39:00 71 mm[Hg] [facility] Heart rate 2018-10-07 16:39:00 86 /min Unive [facility] Body temperature 2018-10-07 16:39:00 36.67 Anel [facility] Respiratory rate 2018-10-07 16:39:00 16 /min [facility] Body height 2018-10-07 16:39:00 170.2 cm [facility] Body weight 2018-10-07 16:39:00 96.673 kg [facility] BMI 2018-10-07 16:39:00 33.38 kg/m2 [facility] Systolic blood pressure 2018-09-30 15:59:00 125 mm[Hg] [facility] Diastolic blood pressure 2018-09-30 15:59:00 70 mm[Hg] [facility] Heart rate 2018-09-30 15:59:00 82 /min Unive [facility] Body temperature 2018-09-30 15:59:00 36.17 Anel [facility] Respiratory rate 2018-09-30 15:59:00 16 /min [facility] Body height 2018-09-30 15:59:00 170.2 cm [facility] Body weight 2018-09-30 15:59:00 97.58 kg [facility] BMI 2018-09-30 15:59:00 33.69 kg/m2 [facility] Systolic blood pressure 2018-09-28 17:05:00 123 mm[Hg] [facility] Diastolic blood pressure 2018-09-28 17:05:00 75 mm[Hg] [facility] Heart rate 2018-09-28 17:05:00 106 /min [facility] Respiratory rate 2018-09-28 17:05:00 18 /min [facility] Body height 2018-09-28 17:05:00 170.2 cm [facility] Body weight 2018-09-28 17:05:00 95.618 kg [facility] BMI 2018-09-28 17:05:00 33.02 kg/m2 [facility] Oxygen saturation in Arterial blood by Pulse oximetry 2018-09-28 17:05:00 98 /min [facility] Systolic blood pressure 2018-09-23 14:12:00 132 mm[Hg] [facility] Diastolic blood pressure 2018-09-23 14:12:00 73 mm[Hg] [facility] Heart rate 2018-09-23 14:12:00 99 /min [facility] Body temperature 2018-09-23 14:12:00 36.39 Anel [facility] Respiratory rate 2018-09-23 14:12:00 16 /min [facility] Body height 2018-09-23 14:12:00 170.2 cm [facility] Body weight 2018-09-23 14:12:00 95.482 kg [facility] BMI 2018-09-23 14:12:00 32.97 kg/m2 [facility] Procedures Procedure Date / Time Performed Performing Clinician Source CBC WITH DIFF 2020-07-16 10:20:00 Evelin Mckeon [facility] CBC WITH DIFF 2020-07-16 10:20:00 Evelin Mckeon [facility] TUBAL LIGATION 2020-07-15 22:29[facility] 2020-07-15 14:21:00 [facility] VENOUS CORD GAS 2020-07-15 14:21:00 [facility] POCT GLUCOSE (AUTOMATED) 2020-07-15 11:56:00 Ome Naomi richardson [facility] POCT GLUCOSE (AUTOMATED) 2020-07-15 11:56:00 Ome Naomi richardson [facility] POCT GLUCOSE (AUTOMATED) 2020-07-15 08:10:00 Ome Naomi richardson [facility] POCT GLUCOSE (AUTOMATED) 2020-07-15 08:10:00 Ome re Naomi [facility] URINALYSIS 2020-07-15 06:21:00 Evelyn San [facility] PROTEIN CREAT RATIO URINE RANDOM 2020-07-15 06:21:00 Evelyn San [facility] URINALYSIS 2020-07-15 06:21:00 Evelyn San [facility] PROTEIN CREAT RATIO URINE RANDOM 2020-07-15 06:21:00 Evelyn San [facility] POCT GLUCOSE (AUTOMATED) 2020-07-15 04:48:00 Ome re Naomi [facility] POCT GLUCOSE (AUTOMATED) 2020-07-15 04:48:00 Ome re Naomi [facility] HB ABO GROUPING 2020-07-15 04:42:00 [facility] RHO (D) IMMUNE GLOBULIN 2020-07-15 04:42:00 Daylin Mckeon [facility] HB ABO GROUPING 2020-07-15 04:42:00 [facility] RHO (D) IMMUNE GLOBULIN 2020-07-15 04:42:00 Daylin Mckeon [facility] SGOT (ASPARTATE AMINO TRANSFER) 2020-07-15 04:40:00 Evelyn San [facility] CREATININE 2020-07-15 04:40:00 Evelyn San [facility] ALANINE AMINO TRANSFERASE(SGPT 2020-07-15 04:40:00 Evelyn San [facility] LACTATE DEHYDROGENASE 2020-07-15 04:40:00 Saurabh San [facility] URIC ACID 2020-07-15 04:40:00 Evelyn San [facility] CBC WITH DIFF 2020-07-15 04:40:00 Evelyn San [facility] HEPATITIS B SURFACE ANTIGEN 2020-07-15 04:40:00 Evelyn San [facility] HIV 1/2 AG-AB WITH REFLEX 2020-07-15 04:40:00 Evelyn San [facility] GALV ONLY - SYPHILIS IGG/IGM 2020-07-15 04:40:00 Evelyn San [facility] SGOT (ASPARTATE AMINO TRANSFER) 2020-07-15 04:40:00 Evelyn San [facility] CREATININE 2020-07-15 04:40:00 Evelyn San [facility] ALANINE AMINO TRANSFERASE(SGPT 2020-07-15 04:40:00 Evelyn San [facility] LACTATE DEHYDROGENASE 2020-07-15 04:40:00 Saurabh San [facility] URIC ACID 2020-07-15 04:40:00 Evelyn San [facility] CBC WITH DIFF 2020-07-15 04:40:00 Evelyn San [facility] HEPATITIS B SURFACE ANTIGEN 2020-07-15 04:40:00 Evelyn San [facility] HIV 1/2 AG-AB WITH REFLEX 2020-07-15 04:40:00 Evelyn San [facility] GALV ONLY - SYPHILIS IGG/IGM 2020-07-15 04:40:00 Evelyn San [facility] COVID-19 (ID NOW RAPID TESTING) 2020-07-15 02:48:00 Naomi Souza [facility] COVID-19 (ID NOW RAPID TESTING) 2020-07-15 02:48:00 Naomi Souza [facility] LAB ONLY COVID INTERPRETATION 2020-07-15 02:48:00 Naomi Souza [facility] NON-STRESS TEST 2020-07-10 21:44:58 Jesús Lugo [facility] POCT URINALYSIS 2020-07-10 19:59:00 Lizette Lugo [facility] HOSPITAL ADMISSION 2020-07-08 05:01:00 Doctor Un assigned, [place] [facility] HOSPITAL ADMISSION 2020-07-08 05:01:00 Doctor Un assigned, [place] [facility] NON-STRESS TEST 2020-07-07 03:07:40 Aster Nava [facility] POCT URINALYSIS 2020-07-06 19:43:00 Lizette Lugo [facility] PATIENT QUESTIONNAIRE 2020-07-06 05:01:00 Doctor Unassigned, [place] [facility] PATIENT QUESTIONNAIRE 2020-07-06 05:01:00 Doctor Unassigned, [place] [facility] NON-STRESS TEST 2020-07-03 20:39:49 Jesús Lugo [facility] POCT URINALYSIS 2020-07-03 19:47:00 Lizette Lugo [facility] NON-STRESS TEST 2020-06-30 01:17:10 Aster Nava [facility] URINE CULTURE 2020-06-29 19:17:00 [facility] 2020-06-29 18:38:00 Lizette Lugo [facility] NON-STRESS TEST 2020-06-26 20:00:14 Jesús Lugo [facility] POCT URINALYSIS 2020-06-26 19:07:00 Lizette Lugo [facility] POCT URINALYSIS 2020-06-22 14:10:00 Lizette Lugo [facility] COVID-19 (ID NOW RAPID TESTING) 2020-06-13 23:40:00 Jaclyn Duval [facility] POCT GLUCOSE (AUTOMATED) 2020-06-13 23:39:00 Jaclyn Duval [facility] NOTICE OF PRIVACY PRACTICES 2020-06-13 23:05:21 Doctor Unassigned, [place] [facility] CONSENT/REFUSAL FOR DIAGNOSIS AND TREATMENT 2020-06-13 23:05:08 Doctor Unassigned, [place] [facility] CONSENT/REFUSAL FOR DIAGNOSIS AND TREATMENT 2020-06-05 23:13:27 Doctor Unassigned, [place] [facility] ASSIGNMENT OF BENEFITS 2020-05-31 00:57:40 Docgemma r Unassigned, [place] [facility] CONSENT/REFUSAL FOR DIAGNOSIS AND TREATMENT 2020-05-31 00:57:15 Doctor Unassigned, [place] [facility] POCT URINALYSIS 2020-05-22 15:41:00 Lizette Lugo [facility] PATIENT QUESTIONNAIRE 2020-05-22 05:01:00 Doctor Unassigned, [place] [facility] POCT URINALYSIS 2020-05-08 14:47:00 Lizette Lugo [facility] TDAP VACCINE, >11 YRS, IM 2020-05-08 14:31:42 Lizette Lugo [facility] STERILIZATION CONSENT FORM 2020-05-08 05:01:00 Doctor Unassigned, [place] [facility] POCT URINALYSIS 2020-04-20 16:26:00 Lizette Lugo [facility] POCT URINALYSIS 2020-02-29 19:14:00 Lizette Lugo [facility] CONSENT FOR SERUM MARKER SCREENING 2020-02-29 06:01:00 Doctor Unassigned, [place] [facility] POCT URINALYSIS 2020-02-01 20:26:00 Dayday Graham [facility] FIRST TRIMESTER ULTRASOUND 2020-01-26 19:45:00 Dayday Graham [facility] HB ABO GROUPING 2019-12-03 20:30:00 Paul Arevalo [facility] GLUCOSE 1 HOUR POST PRANDIAL 2019-12-03 20:29:00 Mickey Paul [facility] THYROID STIMULATING HORMONE 2019-12-03 20:29:00 Mickey Paul [facility] COMP. METABOLIC PANEL ([id number]) 2019-12-03 20:29:00 Paul Arevalo [facility] CBC WITH DIFF 2019-12-03 20:29:00 Paul Arevalo [facility] HEPATITIS B SURFACE ANTIGEN 2019-12-03 20:29:00 Paul Arevalo [facility] URINE CULTURE 2019-12-03 20:29:00 Paul Arevalo [facility] HIV 1/2 AG-AB WITH REFLEX 2019-12-03 20:29:00 Paul Muller [facility] SARS-COV-2 IGG 2019-12-03 20:29:00 [facility] 2019-12-03 00:00:00 [facility] TEST 2019-12-03 00:00:00 Elin Arevalo [facility] CONSENT/REFUSAL FOR DIAGNOSIS AND TREATMENT 2019-11-29 02:29:26 Doctor Unassigned, [place] [facility] CONSENT/REFUSAL FOR DIAGNOSIS AND TREATMENT 2019-03-12 20:07:12 Doctor Unassigned, [place] [facility] ASSIGNMENT OF BENEFITS 2019-03-12 20:06:52 Docto r Unassigned, [place] [facility] CBC WITH DIFFERENTIAL 2018-10-13 09:05:00 Saurabh San [facility] VENOUS CORD GAS 2018-10-12 05:36:00 Agustina Cooney [facility] POCT GLUCOSE (AUTOMATED) 2018-10-12 02:07:00 Coleen Blandon [facility] HEPATITIS B SURFACE ANTIGEN 2018-10-11 16:54:00 Agustina Cooney [facility] TYPE AND SCREEN 2018-10-11 16:54:00 Agustina [facility] GALV ONLY - SYPHILIS IGG/IGM 2018-10-11 16:54:00 Agustina Cooney [facility] HOSPITAL ADMISSION 2018-10-11 05:01:00 Doctor Un assigned, [place] [facility] POCT URINALYSIS W/O SPECIFIC GRAVITY 2018-10-07 16:43:00 Lizette Lugo [facility] POCT URINALYSIS GLUCOSE & PROTEIN 2018-09-30 16:00:00 Dayday Graham [facility] CONSENT/REFUSAL FOR DIAGNOSIS AND TREATMENT 2018-09-28 05:01:00 Doctor Unassigned, [place] [facility] POCT URINALYSIS W/O SPECIFIC GRAVITY 2018-09-23 14:15:00 Lizette Lugo [facility] Encounters Start Date/Time End Date/Time Encounter Type Admission Type Attending [facility] Care Facility Care Department Encounter ID Source 2020-12-17 20:44:03 Outpatient P [facility] [id number] [facility] 2020-12-17 15:42:38 Outpatient P [facility] [id number] [facility] 2020-12-17 15:42:20 Outpatient P [facility] [id number] [facility] 2020-12-17 12:42:32 Outpatient P [facility] [id number] [facility] 2020-12-17 12:42:20 Outpatient P [facility] [id number] [facility] 2020-12-06 10:30:00 2020-12-06 10:30:00 Outpatient R LIZETTE LUGO [facility] [id number] [facility] 2020-09-04 00:00:00 2020-09-04 00:00:00 Telephone Lizette Lugo [facility] CONTROL PANEL TESTER [facility] & CHILD [facility] ..840.114 350.1.13.10 4.2.7.2.686 [id number] [facility] 2020-08-30 08:10:27 2020-08-30 08:55:14 Office Visit Lizette Lugo [facility] CONTROL PANEL TESTER [facility] & CHILD [facility] ..840.114 350.1.13.10 4.2.7.2.686 [id number] [facility] 2020-08-30 08:15:00 2020-08-30 08:15:00 Outpatient R LIZETTE LUGO [facility] [id number] [facility] 2020-08-07 09:02:18 2020-08-07 09:17:18 Routine Visit Lizette Lugo [facility] CONTROL PANEL TESTER [facility] & CHILD [facility] ..840.114 350.1.13.10 4.2.7.2.686 [id number] [facility] 2020-08-07 09:15:00 2020-08-07 09:15:00 Outpatient R LIZETTE LUGO [facility] [id number] [facility] 2020-07-20 15:00:00 2020-07-20 15:00:00 Outpatient R [facility] [id number] [facility] 2020-07-18 14:30:00 2020-07-18 14:30:00 Outpatient R [facility] [id number] [facility] 2020-07-14 21:46:00 2020-07-16 14:09:00 Hospital Encounter Naomi Souza [facility] 1..840.114 350.1.13.10 4.2.7.2.686 [id number] [facility] 2020-07-15 11:50:00 2020-07-15 13:16:00 Surgery Wild Kate [facility] 1.2.840.114 350.1.13.10 4.2.7.2.686 [id number] [facility] 2020-07-13 14:00:00 2020-07-13 14:00:00 Outpatient R [facility] [id number] [facility] 2020-07-10 14:39:24 2020-07-10 15:42:26 Routine Visit Lizette Lugo [facility] CONTROL PANEL TESTER [facility] 1.2.840.114 350.1.13.10 4.2.7.2.686 [id number] [facility] 2020-07-10 14:30:00 2020-07-10 14:30:00 Outpatient R [facility] [id number] [facility] 2020-07-06 13:51:59 2020-07-06 15:15:19 Routine Visit , Ang-Rmchp-N p/High Mary Grace Nava [facility] CONTROL PANEL TESTER [facility] & CHILD [facility] 1.2.840.114 350.1.13.10 4.2.7.2.686 [id number] [facility] 2020-07-06 14:00:00 2020-07-06 14:00:00 Outpatient R [facility] [id number] [facility] 2020-07-04 00:00:00 2020-07-04 00:00:00 Telephone Lizette Lugo [facility] CONTROL PANEL TESTER [facility] & CHILD [facility] 1.2.840.114 350.1.13.10 4.2.7.2.686 [id number] [facility] 2020-07-04 00:00:00 2020-07-04 00:00:00 Abstract Lizette Lugo [facility] CONTROL PANEL TESTER [facility] CHILD [facility] 1.2.840.114 350.1.13.10 4.2.7.2.686 [id number] [facility] 2020-07-03 14:35:38 2020-07-03 15:23:50 Routine Visit Lizette Lugo [facility] CONTROL PANEL TESTER [facility] & CHILD [facility] 1.2.840.114 350.1.13.10 4.2.7.2.686 [id number] [facility] 2020-07-03 14:45:00 2020-07-03 14:45:00 Outpatient R [facility] [id number] [facility] 2020-07-03 14:15:12 2020-07-03 14:34:18 Oracle Architect Visit Ultrasound, Dion Burdick [facility] CONTROL PANEL TESTER [facility] & CHILD [facility] 1.2.840.114 350.1.13.10 4.2.7.2.686 [id number] [facility] 2020-06-29 13:24:41 2020-06-29 14:19:29 Routine Visit Risk, Ang-Rmchp-N p/High Mary Grace Nava [facility] CONTROL PANEL TESTER [facility] & CHILD [facility] 1.840.114 350.1.13.10 4.2.7.2.686 [id number] [facility] 2020-06-29 14:00:00 2020-06-29 14:00:00 Outpatient R [facility] [id number] [facility] 2020-06-26 13:50:58 2020-06-26 14:52:08 Routine Visit Lizette Lugo [facility] CONTROL PANEL TESTER [facility] & CHILD [facility] 1.840.114 350.1.13.10 4.2.7.2.686 [id number] [facility] 2020-06-26 14:00:00 2020-06-26 14:00:00 Outpatient R [facility] [id number] [facility] 2020-06-22 08:49:16 2020-06-22 09:53:49 Routine Visit Risk, Ang-Rmchp-N p/High Mary Grace Nava [facility] CONTROL PANEL TESTER [facility] & CHILD [facility] 1.84.114 350.1.13.10 4.2.7.2.686 [id number] [facility] 2020-06-22 09:00:00 2020-06-22 09:00:00 Outpatient R [facility] [id number] [facility] 2020-06-22 00:00:00 2020-06-22 00:00:00 Telephone Lizette Lugo [facility] 1.840.114 350.1.13.10 4.2.7.2.686 [id number] [facility] 2020-06-20 10:00:00 2020-06-20 10:00:00 Outpatient R TONIO ECHOLS [facility] [id number] [facility] 2020-06-13 18:04:00 2020-06-13 19:07:00 Hospital Encounter Jaclyn Duval [facility] 1.2.840.114 350.1.13.10 4.2.7.2.686 [id number] [facility] 2020-06-08 08:30:00 2020-06-08 08:30:00 Outpatient R [facility] [id number] [facility] 2020-06-05 18:10:00 2020-06-05 20:23:00 Hospital Encounter Jaclyn Duval Radha [facility] 1.2.840.114 350.1.13.10 4.2.7.2.686 [id number] [facility] 2020-06-05 00:00:00 2020-06-05 00:00:00 Telephone Risk, Ang-Rmchp-N p/High [facility] CONTROL PANEL [facility] 1.2840.114 350.1.13.10 4.2.7.2.686 [id number] [facility] 2020-06-05 00:00:00 2020-06-05 00:00:00 Orders Only Doctor Unassigned, [place] [facility] 1.2.840.114 350.1.13.10 4.2.7.2.686 [id number] [facility] 2020-05-30 19:58:00 2020-05-30 21:25:00 Hospital Encounter Tyson Radha [facility] 1.2.840.114 350.1.13.10 4.2.7.2.686 [id number] [facility] 2020-05-30 00:00:00 2020-05-30 00:00:00 Orders Only Doctor Unassigned, [place] [facility] 1.2840.114 350.1.13.10 4.2.7.2.686 [id number] [facility] 2020-05-23 10:00:00 2020-05-23 10:00:00 Outpatient ARSALAN BLANDON [facility] [id number] [facility] 2020-05-22 10:26:59 2020-05-22 10:58:34 Routine Visit Lizette Lugo [facility] CONTROL PANEL TESTER [facility] & CHILD [facility] 1.840.114 350.1.13.10 4.2.7.2.686 [id number] [facility] 2020-05-22 09:45:00 2020-05-22 09:45:00 Outpatient LIZETTE WOO [facility] [id number] [facility] 2020-05-22 00:00:00 2020-05-22 00:00:00 Orders Only Doctor Unassigned, [place] [facility] 1.840.114 350.1.13.10 4.2.7.2.686 [id number] [facility] 2020-05-09 00:00:00 2020-05-09 00:00:00 Patient Outreach Arsalan Blandon [facility] 1.840.114 350.1.13.10 4.2.7.2.686 [id number] [facility] 2020-05-08 08:47:27 2020-05-08 10:56:07 Routine Visit Lizette Lugo [facility] CONTROL PANEL TESTER [facility] & CHILD [facility] 1.2840.114 350.1.13.10 4.2.7.2.686 [id number] [facility] 2020-05-08 09:00:00 2020-05-08 09:00:00 Outpatient DAYDAY ROBLES [facility] [id number] [facility] 2020-05-08 09:00:00 2020-05-08 09:00:00 Outpatient LIZETTE WOO [facility] [id number] [facility] 2020-05-08 00:00:00 2020-05-08 00:00:00 Orders Only Doctor Unassigned, [place] [facility] ..114 350.1.13.10 4.2.7.2.686 [id number] [facility] 2020-05-04 00:00:00 2020-05-04 00:00:00 Telephone Lizette Lugo [facility] CONTROL PANEL TESTER [facility] & CHILD [facility] ..114 350.1.13.10 4.2.7.2.686 [id number] [facility] 2020-05-03 07:46:58 2020-05-03 08:01:58 Oracle Architect Visit Lab, [facility] Dayday Graham [facility] CONTROL PANEL TESTER [facility] & CHILD [facility] ..114 350.1.13.10 4.2.7.2.686 [id number] [facility] 2020-05-03 07:45:00 2020-05-03 07:45:00 Outpatient DAYDAY ROBLES [facility] [id number] [facility] 2020-04-26 00:00:00 2020-04-26 00:00:00 Telephone Lizette Lugo [facility] CONTROL PANEL TESTER [facility] & CHILD [facility] ..114 350.1.13.10 4.2.7.2.686 [id number] [facility] 2020-04-25 08:55:43 2020-04-25 09:34:31 Routine Visit Lizette Lugo Emily [facility] CONTROL PANEL TESTER [facility] & CHILD [facility] 1.0.114 350.1.13.10 4.2.7.2.686 [id number] [facility] 2020-04-25 09:15:00 2020-04-25 09:15:00 Outpatient R DAYDAY GRAHAM [facility] [id number] [facility] 2020-04-21 00:00:00 2020-04-21 00:00:00 Telephone Santos Dayday Laura [facility] CONTROL PANEL TESTER [facility] & CHILD [facility] 1..840.114 350.1.13.10 4.2.7.2.686 [id number] [facility] 2020-04-20 10:18:39 2020-04-20 10:46:55 Routine Visit Risk, Jefferychp-N p/High Tara Harvey [facility] CONTROL PANEL TESTER [facility] & CHILD [facility] 1..840.114 350.1.13.10 4.2.7.2.686 [id number] [facility] 2020-04-20 10:30:00 2020-04-20 10:30:00 Outpatient R [facility] [id number] [facility] 2020-04-15 00:00:00 2020-04-15 00:00:00 Patient Secure Msg Doctor Unassigned, [place] [facility] 1..840.114 350.1.13.10 4.2.7.2.686 [id number] [facility] 2020-04-06 10:00:00 2020-04-06 10:00:00 Outpatient R [facility] [id number] [facility] 2020-03-28 11:00:00 2020-03-28 11:00:00 Outpatient R LIZETTE LUGO [facility] [id number] [facility] 2020-03-09 13:52:50 2020-03-09 15:07:50 Oracle Architect Visit Ultrasound, Roberto Goncalves Tamiko [facility] CONTROL PANEL TESTER [facility] CHILD [facility] 1.2840.114 350.1.13.10 4.2.7.2.686 [id number] [facility] 2020-03-09 14:00:00 2020-03-09 14:00:00 Outpatient P [facility] [id number] [facility] 2020-02-29 12:58:27 2020-02-29 13:26:41 Routine Visit Lizette Lugo [facility] CONTROL PANEL TESTER [facility] & CHILD [facility] 1.20.114 350.1.13.10 4.2.7.2.686 [id number] [facility] 2020-02-29 13:00:00 2020-02-29 13:00:00 Outpatient R LIZETTE LUGO [facility] [id number] [facility] 2020-02-29 00:00:00 2020-02-29 00:00:00 Orders Only Doctor Unassigned, [place] [facility] 1.20.114 350.1.13.10 4.2.7.2.686 [id number] [facility] 2020-02-22 00:00:00 2020-02-22 00:00:00 Patient Secure Msg Doctor Unassigned, [place] [facility] CONTROL PANEL TESTER [facility] CHILD [facility] 1.20.114 350.1.13.10 4.2.7.2.686 [id number] [facility] 2020-02-01 13:43:05 2020-02-01 14:05:32 Routine Visit Dayday Graham [facility] CONTROL PANEL TESTER [facility] & CHILD [facility] 1.2.840.114 350.1.13.10 4.2.7.2.686 [id number] [facility] 2020-02-01 14:00:00 2020-02-01 14:00:00 Outpatient R DAYDAY GRAHAM [facility] [id number] [facility] 2020-01-26 13:20:33 2020-01-26 13:52:11 Oracle Architect Visit Ultrasound, Tamiko Russell [facility] CONTROL PANEL TESTER [facility] CHILD [facility] 1.2.840.114 350.1.13.10 4.2.7.2.686 [id number] [facility] 2020-01-26 13:30:00 2020-01-26 13:30:00 Outpatient P [facility] [id number] [facility] 2020-01-21 00:00:00 2020-01-21 00:00:00 Patient Secure Msg Doctor Unassigned, [place] [facility] CONTROL PANEL TESTER [facility] CHILD [facility] 1.2.840.114 350.1.13.10 4.2.7.2.686 [id number] [facility] 2020-01-21 00:00:00 2020-01-21 00:00:00 Telephone Dayday Graham [facility] CONTROL PANEL TESTER [facility] & CHILD [facility] 1.2.840.114 350.1.13.10 4.2.7.2.686 [id number] [facility] 2020-01-17 00:00:00 2020-01-17 00:00:00 Patient Secure Msg Doctor Unassigned, [place] [facility] CONTROL PANEL TESTER [facility] & CHILD [facility] 1.2.840.114 350.1.13.10 4.2.7.2.686 [id number] [facility] 2020-01-04 14:10:07 2020-01-04 14:25:07 Routine Visit Dayday Graham [facility] CONTROL PANEL TESTER [facility] & CHILD [facility] 1.2.840.114 350.1.13.10 4.2.7.2.686 [id number] [facility] 2020-01-04 14:15:00 2020-01-04 14:15:00 Outpatient Darya SANTOSDAYDAY [facility] [id number] [facility] 2019-12-08 00:00:00 2019-12-08 00:00:00 Patient Secure Msg Doctor Unassigned, [place] [facility] CONTROL PANEL TESTER [facility] CH[facility] 1.2.840.114 350.1.13.10 4.2.7.2.686 [id number] [facility] 2019-12-08 00:00:00 2019-12-08 00:00:00 Patient Secure Msg Doctor Unassigned, [place] [facility] CONTROL PANEL TESTER [facility] CH[facility] 1.2.840.114 350.1.13.10 4.2.7.2.686 [id number] [facility] 2019-12-03 13:57:53 2019-12-03 15:53:08 Initial Visit MickeyPaul [facility] 1.2.840.114 350.1.13.10 4.2.7.2.686 [id number] [facility] 2019-12-03 14:00:00 2019-12-03 14:00:00 Outpatient Darya AREVALOPAUL [facility] [id number] [facility] 2019-11-28 00:00:00 2019-11-28 00:00:00 Orders Only Doctor Unassigned, [place] [facility] 1..840.114 350.1.13.10 4.2.7.2.686 [id number] [facility] 2019-06-05 12:52:00 2019-06-07 06:25:28 Inpatient [facility] [id number] 94 [facility] 2019-05-12 09:15:00 2019-05-12 09:15:00 Outpatient theresa TAVERAS [facility] [id number] [facility] 2019-03-12 14:09:29 2019-03-12 15:05:26 Office Visit Lizette Lugo [facility] CONTROL PANEL TESTER [facility] & CHILD [facility] 1.2.840.114 350.1.13.10 4.2.7.2.686 [id number] 2019-03-12 14:09:29 2019-03-12 15:05:26 Office Visit Lizette Lugo [facility] CONTROL PANEL TESTER [facility] 1.2.840.114 350.1.13.10 4.2.7.2.686 [id number] [facility] 2019-03-12 00:00:00 2019-03-12 00:00:00 Orders Only Doctor Unassigned, [place] [facility] 1.2.840.114 350.1.13.10 4.2.7.2.686 [id number] [facility] 2019-03-11 00:00:00 2019-03-11 00:00:00 Telephone Lizette Lugo [facility] CONTROL PANEL TESTER [facility] & CHILD [facility] 1.2.840.114 350.1.13.10 4.2.7.2.686 [id number] [facility] 2018-11-02 09:19:45 2018-11-02 10:10:06 Routine Visit Lizette Lugo [facility] CONTROL PANEL TESTER [facility] CHILD [facility] 1.2.840.114 350.1.13.10 4.2.7.2.686 [id number] [facility] 2018-10-11 09:10:00 2018-10-13 13:48:00 Hospital Encounter Altagracia Blandon [facility] 1.2.840.114 350.1.13.10 4.2.7.2.686 [id number] [facility] 2018-10-11 00:00:00 2018-10-11 00:00:00 Orders Only Doctor Unassigned, [place] [facility] 1.2.840.114 350.1.13.10 4.2.7.2.686 [id number] [facility] 2018-10-07 10:46:28 2018-10-07 11:49:44 Routine Visit Lizette Lugo Emily N [facility] CONTROL PANEL TESTER [facility] & CHILD [facility] 1.2.840.114 350.1.13.10 4.2.7.2.686 [id number] [facility] 2018-09-30 10:52:31 2018-09-30 11:16:08 Routine Visit Dayday Graham [facility] CONTROL PANEL TESTER [facility]ILD [facility] 1.20.114 350.1.13.10 4.2.7.2.686 [id number] [facility] 2018-09-28 11:23:00 2018-09-28 13:27:00 Hospital Encounter Yas Hilario [facility] 1.2.840.114 350.1.13.10 4.2.7.2.686 [id number] [facility] 2018-09-28 00:00:00 2018-09-28 00:00:00 Nurse Triage Virginie Sutton [facility] 1.840.114 350.1.13.10 4.2.7.2.686 [id number] [facility] 2018-09-28 00:00:00 2018-09-28 00:00:00 Patient Secure Msg Lizette Lugo [facility] CONTROL PANEL TESTER [facility] CHILD [facility] 1.2.840.114 350.1.13.10 4.2.7.2.686 [id number] [facility] 2018-09-24 00:00:00 2018-09-24 00:00:00 Telephone Lizette Lugo [facility] CONTROL PANEL TESTER [facility] 1.2.840.114 350.1.13.10 4.2.7.2.686 [id number] [facility] 2018-09-24 00:00:00 2018-09-24 00:00:00 Patient Secure g Lizette Lugo [facility] CONTROL PANEL TESTER [facility] 1.2840.114 350.1.13.10 4.2.7.2.686 [id number] [facility] 2018-09-23 08:57:20 2018-09-23 10:50:36 Routine Visit Lizette Lugo [facility] 1.2840.114 350.1.13.10 4.2.7.2.686 [id number] [facility] 2018-08-14 00:00:00 2018-08-14 00:00:00 Patient Secure g Doctor Unassigned, [place] [facility] 1.2840.114 350.1.13.10 4.2.7.2.686 [id number] [facility] Results Test Description Test Time [...] COVID-19 testing the patient has had at [facility], including molecular NAAT testing (more commonly known as PCR testing and Rapid ID Now testing) and antibody testing. It does not take into account any testing that a patient has had outside of the [facility] medical record. [facility] LABORATORY SERVICESCOVID [id number] Rapid ID NOW (no units) ? ? Date ? Value ? 07/14/2020 ? Not Detected ? ? ? 07/08/2020 ? Not Detected ? ? ? 06/13/2020 ? Not Detected ? CoV-2 IgG (no units) ? ? Date ? Value ? 07/03/2020 ? Positive (A) ? ? ? 12/03/2019 ? Negative ? ? ? [facility] [id number] 10:28:11* Test Item Value Reference Range Interpretation [...] g/dL 31.6-35.1 L RDW-SD (test code = 95850-4) 48.5 fL 39.0-49.9 RDW-CV (test code = 788-0) 14.8 % 12.0-15.5 PLT (test code = 777-3) See_Comment [Automated message] The system which generated this result transmitted reference range: 166 - 358 10*3/?L. The reference range was not used to interpret this result as normal/abnormal. MPV (test code = 12039-4) 9.5 fL 9.5-12.9 NRBC/100 WBC (test code = 7142369430) See_Comment [Automated message] The system which generated this result transmitted reference range: 0.0 - 10.0 /100 WBCs. The reference range was not used to interpret this result as normal/abnormal. NRBC x10^3 (test code = 5580702551) <0.01 See_Comment [Automated message] The system which generated this result transmitted reference range: 10*3/?L. The reference range was not used to interpret this result as normal/abnormal. GRAN MAT (NEUT) % (test code = 770-8) 77.0 % IMM GRAN % (test code = 8721160039) 0.80 % LYMPH % (test code = 736-9) 12.4 % MONO % (test code = 5905-5) 8.7 % EOS % (test code = 713-8) 0.9 % BASO % (test code = 706-2) 0.2 % GRAN MAT x10^3(ANC) (test code = 0866929386) 11.03 10*3/uL 1.88-7.09 H IMM GRAN x10^3 (test code = 1744638265) 0.12 10*3/uL 0.00-0.06 H LYMPH x10^3 (test code = 731-0) 1.78 10*3/uL 1.32-3.29 MONO x10^3 (test code = 742-7) 1.25 10*3/uL 0.33-0.92 H EOS x10^3 (test code = 711-2) 0.13 10*3/uL 0.03-0.39 BASO x10^3 (test code = 704-7) 0.03 10*3/uL 0.01-0.07 Lab Interpretation (test code = 80827-7) Abnormal [facility] (D) IMMUNE [id number] 01:57:12* Test Item Value Reference Range Interpretation Comme nts RHIG CANDIDATE? (test code = 5055) No- see comment Patient is not a candidate for RhIg- Patient is Rh Positive.Performed at [facility] Laboratory Services - [facility] Blood [address] Free: [phone] No. [id number] [facility] (D) IMMUNE [id number] 01:57:12* Test Item Value Reference Range Interpretation Comme nts RHIG CANDIDATE? (test code = 5055) No- see comment Patient is not a candidate for RhIg- Patient is Rh Positive.Performed at [facility] Laboratory Services - [facility] Blood [address] [address]Dy[place] Free: [phone] No. [id number] [facility] - SYPHILIS IGG/[id number] 16:55:55* Test Item Value Reference Range Interpretation Comme nts Syphilis IgG/IgM (test code = 85630-2) Non-reactive Non-reactive KARLA (test code = KARLA) Non-reactive - No serologic evidence of T. pallidum infection. Cannot exclude incubating or early syphilis. Submit a second specimen in 2-4 weeks if syphilis is clinically suspected. Equivocal - Further testing to follow. Reactive - Further testing to follow. Lab Interpretation (test code = 82103-3) Normal [facility] - SYPHILIS [id number] 16:55:55* Test Item Value Reference Range Interpretation Comme nts Syphilis IgG/IgM (test code = 76843-8) Non-reactive Non-reactive KARLA (test code = KARLA) Non-reactive - No serologic evidence of T. pallidum infection. Cannot exclude incubating or early syphilis. Submit a second specimen in 2-4 weeks if syphilis is clinically suspected. Equivocal - Further testing to follow. Reactive - Further testing to follow. Lab Interpretation (test code = 11855-2) Normal [facility] CORD [id number] 14:33:45* Test Item Value Reference Range Interpretation Comme [facility] VENOUS BASE EXCESS, CORD (test code = 7320319458) mEq/L VENOUS PH, CORD (test code = 9844829889) 7.25-7.45 VENOUS PC02, CORD (test code = 9360659075) See_Comment [Automated messa ge] The system which generated this result transmitted reference range: 27 - 49 mmHg. The reference range was not used to interpret this result as normal/abnormal. VENOUS PO2, CORD (test code = 6306286455) See_Comment [Automated me ssage] The system which generated this result transmitted reference range: 17 - 41 mmHg. The reference range was not used to interpret this result as normal/abnormal. VENOUS BICARBONATE, CORD (test code = 3726424581) See_Comment [Automated messa ge] The system which generated this result transmitted reference range: 12 - 29 mEq/L. The reference range was not used to interpret this result as normal/abnormal. [facility] CORD [id number] 14:33:45* Test Item Value Reference Range Interpretation Comme [facility] VENOUS BASE EXCESS, CORD (test code = 6094727348) mEq/L VENOUS PH, CORD (test code = 1256137291) 7.25-7.45 VENOUS PC02, CORD (test code = 9138327159) See_Comment [Automated messa ge] The system which generated this result transmitted reference range: 27 - 49 mmHg. The reference range was not used to interpret this result as normal/abnormal. VENOUS PO2, CORD (test code = 1512609805) See_Comment [Automated me ssage] The system which generated this result transmitted reference range: 17 - 41 mmHg. The reference range was not used to interpret this result as normal/abnormal. VENOUS BICARBONATE, CORD (test code = 2884131828) See_Comment [Automated messa ge] The system which generated this result transmitted reference range: 12 - 29 mEq/L. The reference range was not used to interpret this result as normal/abnormal. [facility] CORD [id number] 14:30:44* Test Item Value Reference Range Interpretation Comme nts BASE EXCESS, CORD (test code = 9744896506) mEq/L AC PH, CORD (BEAKER) (test code = 6427788974) 7.18-7.38 PC02, CORD (test code = 6500528500) See_Comment [Automated messa ge] The system which generated this result transmitted reference range: 32 - 66 mmHg. The reference range was not used to interpret this result as normal/abnormal. PO2, CORD (test code = 8648775619) See_Comment [Automated messa ge] The system which generated this result transmitted reference range: 10 - 30 mmHg. The reference range was not used to interpret this result as normal/abnormal. BICARBONATE, CORD (test code = 1824322879) See_Comment [Automated messa ge] The system which generated this result transmitted reference range: 17 - 27 mEq/L. The reference range was not used to interpret this result as normal/abnormal. [facility] CORD [id number] 14:30:44* Test Item Value Reference Range Interpretation Comme nts BASE EXCESS, CORD (test code = 6374281903) mEq/L AC PH, CORD (BEAKER) (test code = 5135860155) 7.18-7.38 PC02, CORD (test code = 0577138207) See_Comment [Automated messa ge] The system which generated this result transmitted reference range: 32 - 66 mmHg. The reference range was not used to interpret this result as normal/abnormal. PO2, CORD (test code = 4698821524) See_Comment [Automated messa ge] The system which generated this result transmitted reference range: 10 - 30 mmHg. The reference range was not used to interpret this result as normal/abnormal. BICARBONATE, CORD (test code = 8854753631) See_Comment [Automated messa ge] The system which generated this result transmitted reference range: 17 - 27 mEq/L. The reference range was not used to interpret this result as normal/abnormal. [facility] GLUCOSE (AUTOMATED)2020-07-15 11:59:25* Test Item Value Reference Range Interpretation Comme nts POCT GLU (test code = 1548182064) 122 mg/dL 70-110 H Lab Interpretation (test cod e = 95259-4) Abnormal [facility] GLUCOSE (AUTOMATED)2020-07-15 11:59:25* Test Item Value Reference Range Interpretation Comme nts POCT GLU (test code = 9520108797) 122 mg/dL 70-110 H Lab Interpretation (test cod e = 19856-5) Abnormal [facility] GLUCOSE (AUTOMATED)2020-07-15 08:15:23* Test Item Value Reference Range Interpretation Comme nts POCT GLU (test code = 0923494718) 122 mg/dL 70-110 H Lab Interpretation (test cod e = 45163-8) Abnormal [facility] GLUCOSE (AUTOMATED)2020-07-15 08:15:23* Test Item Value Reference Range Interpretation Comme nts POCT GLU (test code = 3660644703) 122 mg/dL 70-110 H Lab Interpretation (test cod e = 21835-0) Abnormal [facility] Club[facility]inalysis2021-[facility]-29 06:40:28* Test Item Value Reference Range Interpretation Comme nts APPEARANCE (test code = 4429137576) Clear Clear COLOR (test code = 0891721573) Yellow Yellow PH (test code = 2084711139) 4.8-8.0 SP GRAVITY (test code = 4412028423) 1.003-1.030 GLU U QUAL (test code = 1758448874) Normal Normal BLOOD (test code = 9789819457) Negative Negative KETONES (test code = 0288672789) 5 mg/dL Negative A PROTEIN (test code = 2887-8) Negative Negative UROBILIN (test code = 7767303910) Normal Normal BILIRUBIN (test code = 0656237375) Negative Negative NITRITE (test code = 3013846198) Negative Negative LEUK RAJ (test code = 8812972288) Negative Negative RBC/HPF (test code = 3413808756) See_Comment H [Automated messa ge] The system which generated this result transmitted reference range: 0 - 3 HPF. The reference range was not used to interpret this result as normal/abnormal. WBC/HPF (test code = 5126988180) See_Comment [Automated messa ge] The system which generated this result transmitted reference range: 0 - 5 HPF. The reference range was not used to interpret this result as normal/abnormal. BACTERIA (test code = 5713799980) Few Negative A MUCOUS (test code = 7473266693) Moderate Negative LPF A SQ EPITH (test code = 9408228296) See_Comment H [Automated messa ge] The system which generated this result transmitted reference range: <=2 HPF. The reference range was not used to interpret this result as normal/abnormal. Lab Interpretation (test code = 79983-6) Abnormal [facility]2021-05-29 06:40:28* Test Item Value Reference Range Interpretation Comme nts APPEARANCE (test code = 8366343964) Clear Clear COLOR (test code = 5459612236) Yellow Yellow PH (test code = 5969487349) 4.8-8.0 SP GRAVITY (test code = 1062132614) 1.003-1.030 GLU U QUAL (test code = 5807703089) Normal Normal BLOOD (test code = 6619339288) Negative Negative KETONES (test code = 2139439276) 5 mg/dL Negative A PROTEIN (test code = 2887-8) Negative Negative UROBILIN (test code = 9454607363) Normal Normal BILIRUBIN (test code = 3856244229) Negative Negative NITRITE (test code = 0621944230) Negative Negative LEUK RAJ (test code = 7956463113) Negative Negative RBC/HPF (test code = 3013844772) See_Comment H [Automated messa ge] The system which generated this result transmitted reference range: 0 - 3 HPF. The reference range was not used to interpret this result as normal/abnormal. WBC/HPF (test code = 3010914139) See_Comment [Automated messa ge] The system which generated this result transmitted reference range: 0 - 5 HPF. The reference range was not used to interpret this result as normal/abnormal. BACTERIA (test code = 3179729377) Few Negative A MUCOUS (test code = 0471647028) Moderate Negative LPF A SQ EPITH (test code = 6722991000) See_Comment H [Automated messa ge] The system which generated this result transmitted reference range: <=2 HPF. The reference range was not used to interpret this result as normal/abnormal. Lab Interpretation (test code = 12784-5) Abnormal [facility] Club[facility] CREAT Ratio Urine Dyudql0560-01-91 06:39:32* Test Item Value Reference Range Interpretation Comme nts T. PROT U (test code = 2888-6) 13 mg/dL CREAT U (test code = 2090803203) 156.2 mg/dL Protein/Creatinine Ratio Uri ne (test code = 6833375579) 0.0-2.0 [facility] CREAT Ratio Urine Mcvake4868-80-51 06:39:32* Test Item Value Reference Range Interpretation Comme nts T. PROT U (test code = 2888-6) 13 mg/dL CREAT U (test code = 8932509971) 156.2 mg/dL Protein/Creatinine Ratio Uri ne (test code = 0739823923) 0.0-2.0 [facility] ClubHIV 1/2 AG-AB WITH [id number] 06:12:14* Test Item Value Reference Range Interpretation Comme nts HIV Semi-quantitative (test code = 64110-7) Negative Negative KARLA (test code = KARLA) Non-reactive for HIV-1 antigen and HIV-1/HIV-2 antibodies. ?No laboratory evidence of HIV infection. ?Repeat in 2-4 weeks if acute HIV infection is suspected. [facility] ClubHIV 1/2 AG-AB WITH [id number] 06:12:14* Test Item Value Reference Range Interpretation Comme nts HIV Semi-quantitative (test code = 44646-1) Negative Negative KARLA (test code = KARLA) Non-reactive for HIV-1 antigen and HIV-1/HIV-2 antibodies. ?No laboratory evidence of HIV infection. ?Repeat in 2-4 weeks if acute HIV infection is suspected. [facility] ClubHEPATITIS B SURFACE [id number] 06:03:09 * Test Item Value Reference Range Interpretation Comme nts HBsAg Semi-Quantitative (cristian t code = 5195-3) Negative Negative [facility] ClubHEPATITIS B SURFACE [id number] 06:03:09 * Test Item Value Reference Range Interpretation Comme nts HBsAg Semi-Quantitative (cristian t code = 5195-3) Negative Negative [facility] ClubUric Acid Oecgg7196-76-36 05:31:11* Test Item Value Reference Range Interpretation Comme nts URIC ACID (test code = 6278547002) 4.7 mg/dL 2.9-6.0 Lab Interpretation (test cod e = 88144-2) Normal [facility] Fysudfcdmt4771-88-86 05:31:11* Test Item Value Reference Range Interpretation Comme [facility] CREATININE (test code = 6234986200) 0.49 mg/dL 0.50-1.04 L eGFR (test code = 6512444837) mL/min/1.73m2 KARLA (test code = KARLA) Association [...] imaging tests). Lab Interpretation (test code = 97356-5) Abnormal [facility] ClubSGOT (Asparate Amino Transfer)2020-07-15 05:31:11* Test Item Value Reference Range Interpretation Comme [facility] AST(SGOT) (test code = 6185318290) 19 U/L 13-40 Lab Interpretation (test cod e = 77419-5) Normal [facility] ClubUric Acid Evxlw6911-56-35 05:31:11* Test Item Value Reference Range Interpretation Comme [facility] URIC ACID (test code = 2818314388) 4.7 mg/dL 2.9-6.0 Lab Interpretation (test cod e = 40826-9) Normal [facility] ClubSerum Tzpigcmlge6865-13-67 05:31:11* Test Item Value Reference Range Interpretation Comme [facility] CREATININE (test code = 1167899012) 0.49 mg/dL 0.50-1.04 L eGFR (test code = 6494080744) mL/min/1.73m2 KARLA (test code = KARLA) Association [...] imaging tests). Lab Interpretation (test code = 79214-7) Abnormal [facility] ClubSGOT (Asparate Amino Transfer)2020-07-15 05:31:11* Test Item Value Reference Range Interpretation Comme nts AST(SGOT) (test code = 8268823001) 19 U/L 13-40 Lab Interpretation (test cod e = 08652-1) Normal [facility] ClubAlanine Amino Transferase (SGPT)2020-07-15 05:31:10* Test Item Value Reference Range Interpretation Comme nts ALTv (test code = 1742-6) 12 U/L 5-35 Lab Interpretation (test cod e = 33823-4) Normal [facility] ClubAlanine Amino Transferase (SGPT)2020-07-15 05:31:10* Test Item Value Reference Range Interpretation Comme nts ALTv (test code = 1742-6) 12 U/L 5-35 Lab Interpretation (test cod e = 42240-2) Normal [facility] ClubLactate Ettkvyivhaele0017-74-73 05:30:50* Test Item Value Reference Range Interpretation Comme nts LDH (test code = 3272507879) 459 U/L 300-600 Lab Interpretation (test cod e = 25171-3) Normal [facility] ClubLactate Chgvemvssixjd6077-74-07 05:30:50* Test Item Value Reference Range Interpretation Comme nts LDH (test code = 8141671466) 459 U/L 300-600 Lab Interpretation (test cod e = 33067-8) Normal [facility] ClubType and Screen - ONCE [id number] 05:21:09 * Test Item Value Reference Range Interpretation Comme nts ABO & RH (test code = 20) B POSITIVE Performed at [facility] Laboratory [facility] - [facility] Blood [address] [address]Qtlq Free: [phone] No. [id number] IAT (test code = 1185) Negative Performed at [facility] Laboratory Services - [facility] Blood [address] [address]Rasd Free: [phone] No. [id number] [facility] ClubType and Screen - ONCE [id number] 05:21:09 * Test Item Value Reference Range Interpretation Comme nts ABO & RH (test code = 20) B POSITIVE Performed at [facility] Laboratory Services - [place] [address]Toll Free: [phone] No. [id number] IAT (test code = 1185) Negative Performed at [facility] Laboratory Services - [address] [address] Free: [phone] No. [id number] [facility] ClubCBC with Rugvcfhepxmv1193-13-47 05:01:18* Test Item Value Reference Range Interpretation [...] 31.7 g/dL 31.6-35.1 RDW-SD (test code = 89092-0) 48.0 fL 39.0-49.9 RDW-CV (test code = 788-0) 14.8 % 12.0-15.5 PLT (test code = 777-3) See_Comment [Automated message] The system which generated this result transmitted reference range: 166 - 358 10*3/?L. The reference range was not used to interpret this result as normal/abnormal. MPV (test code = 27424-8) 9.6 fL 9.5-12.9 NRBC/100 WBC (test code = 2750516782) See_Comment [Automated message] The system which generated this result transmitted reference range: 0.0 - 10.0 /100 WBCs. The reference range was not used to interpret this result as normal/abnormal. NRBC x10^3 (test code = 6667225648) <0.01 See_Comment [Automated message] The system which generated this result transmitted reference range: 10*3/?L. The reference range was not used to interpret this result as normal/abnormal. GRAN MAT (NEUT) % (test code = 770-8) 74.5 % IMM GRAN % (test code = 8610658811) 1.60 % LYMPH % (test code = 736-9) 15.7 % MONO % (test code = 5905-5) 7.1 % EOS % (test code = 713-8) 0.9 % BASO % (test code = 706-2) 0.2 % GRAN MAT x10^3(ANC) (test code = 5420683371) 11.97 10*3/uL 1.88-7.09 H IMM GRAN x10^3 (test code = 1823226104) 0.25 10*3/uL 0.00-0.06 H LYMPH x10^3 (test code = 731-0) 2.52 10*3/uL 1.32-3.29 MONO x10^3 (test code = 742-7) 1.14 10*3/uL 0.33-0.92 H EOS x10^3 (test code = 711-2) 0.14 10*3/uL 0.03-0.39 BASO x10^3 (test code = 704-7) 0.04 10*3/uL 0.01-0.07 Lab Interpretation (test code = 12621-1) Abnormal [facility] with Pjyuhheqwfbt4842-98-79 05:01:18* Test Item Value Reference Range Interpretation [...] 31.7 g/dL 31.6-35.1 RDW-SD (test code = 69062-2) 48.0 fL 39.0-49.9 RDW-CV (test code = 788-0) 14.8 % 12.0-15.5 PLT (test code = 777-3) See_Comment [Automated message] The system which generated this result transmitted reference range: 166 - 358 10*3/?L. The reference range was not used to interpret this result as normal/abnormal. MPV (test code = 14843-5) 9.6 fL 9.5-12.9 NRBC/100 WBC (test code = 8531640894) See_Comment [Automated message] The system which generated this result transmitted reference range: 0.0 - 10.0 /100 WBCs. The reference range was not used to interpret this result as normal/abnormal. NRBC x10^3 (test code = 7294714444) <0.01 See_Comment [Automated message] The system which generated this result transmitted reference range: 10*3/?L. The reference range was not used to interpret this result as normal/abnormal. GRAN MAT (NEUT) % (test code = 770-8) 74.5 % IMM GRAN % (test code = 3280915920) 1.60 % LYMPH % (test code = 736-9) 15.7 % MONO % (test code = 5905-5) 7.1 % EOS % (test code = 713-8) 0.9 % BASO % (test code = 706-2) 0.2 % GRAN MAT x10^3(ANC) (test code = 1638987418) 11.97 10*3/uL 1.88-7.09 H IMM GRAN x10^3 (test code = 7918554368) 0.25 10*3/uL 0.00-0.06 H LYMPH x10^3 (test code = 731-0) 2.52 10*3/uL 1.32-3.29 MONO x10^3 (test code = 742-7) 1.14 10*3/uL 0.33-0.92 H EOS x10^3 (test code = 711-2) 0.14 10*3/uL 0.03-0.39 BASO x10^3 (test code = 704-7) 0.04 10*3/uL 0.01-0.07 Lab Interpretation (test code = 71312-7) Abnormal [facility] GLUCOSE (AUTOMATED)2020-07-15 04:49:15* Test Item Value Reference Range Interpretation Comme nts POCT GLU (test code = 1715766647) 137 mg/dL 70-110 H Lab Interpretation (test cod e = 28717-2) Abnormal [facility] GLUCOSE (AUTOMATED)2020-07-15 04:49:15* Test Item Value Reference Range Interpretation Comme nts POCT GLU (test code = 4362798818) 137 mg/dL 70-110 H Lab Interpretation (test cod e = 96904-5) Abnormal [facility] ClubCOVID[facility] (ID NOW RAPID TESTING)2020-07-15 03:33:51* Test Item Value Reference Range Interpretation Comme nts SARS-CoV-2 Rapid ID NOW (test code = 58116-4) Not Detected Not Detected KARLA (test code = KARLA) ID NOW COVID-19 As say is an isothermal nucleic acid amplification test intended for the qualitative detection of nucleic acid from SARS-CoV-2 viral RNA in nasopharyngeal (ORTHODONTIST) specimens. It is used under Emergency Use [...] clinically indicated. Lab Interpretation (test code = 74220-6) Normal [facility] ClubCOVID-[facility] (ID NOW RAPID TESTING)2020-07-15 03:33:51* Test Item Value Reference Range Interpretation Comme nts SARS-CoV-2 Rapid ID NOW (test code = 38473-8) Not Detected Not Detected KARLA (test code = KARLA) ID NOW COVID-19 As say is an isothermal nucleic acid amplification test intended for the qualitative detection of nucleic acid from SARS-CoV-2 viral RNA in nasopharyngeal (ORTHODONTIST) specimens. It is used under Emergency Use [...] clinically indicated. Lab Interpretation (test code = 88608-9) Normal [facility] ClubFETAL NON-STRESS [id number] 21:45:26NST: cat 1, reactive/reassuring, no ctx, +accels, neg decls, moderate variability [facility] ClubPOPA URINALYSIS W SPECIFIC [id number] 19:59:00* Test Item Value Reference Range Interpretation [...] POCT U APPEAR (test code = 3267) [facility] NON-STRESS [id number] 03:09:14NST reactive and reassuring, no ctx notedUnMary [facility]CIFIC EJEIJQU4493-35-15 19:43:00* Test Item Value Reference Range Interpretation [...] POCT U APPEAR (test code = 3267) [facility] NON-STRESS [id number] 20:40:19NST: cat 1, reactive/reassuring, no ctx, +accels, neg decls, moderate variability [facility] URINALYSIS W SPECIFIC DPNPNZZ1678-90-55 19:47:00* Test Item Value Reference Range Interpretation [...] POCT U APPEAR (test code = 3267) [facility] ClubURINE KCVIMDG4032-34-63 13:06:59* Test Item Value Reference Range Interpretation Comme nts URINE CULTURE (test code = 630-4) 10,000 - 100,000 CFU/mL mixed aerobic organisms - suggests endogenous microbial contamination [facility] ClubFETAL NON-STRESS [id number] 01:18:29NST reactive and reassuring, no ctx notedUnHouston [facility] HospitalPOCT [facility]AL[facility] W SPECIFIC AJXGZLM5072-23-17 18:38:00* Test Item Value Reference Range Interpretation [...] POCT U APPEAR (test code = 3267) [facility] NON-STRESS BRGW7762-27-23 20:01:23NST: cat 1, reactive/reassuring, no ctx, +accels, neg decls, moderate variability [facility] NON-STRESS [id number] 20:01:23NST: cat 1, reactive/reassuring, no ctx, +accels, neg decls, moderate variability [facility] NON-STRESS [id number] 20:01:23NST: cat 1, reactive/reassuring, no ctx, +accels, neg decls, moderate variability [facility] URINALYSIS W SPECIFIC [id number] 19:07:00* Test Item Value Reference Range Interpretation [...] POCT U APPEAR (test code = 3267) [facility] URINAL[facility] W SPECIFIC [id number] 19:07:00* Test Item Value Reference Range Interpretation [...] POCT U APPEAR (test code = 3267) [facility] URINALYSIS W SPECIFIC [id number] 19:07:00* Test Item Value Reference Range Interpretation [...] POCT U APPEAR (test code = 3267) [facility] URINALYSIS W SPECIFIC [id number] 14:10:00* Test Item Value Reference Range Interpretation [...] POCT U APPEAR (test code = 3267) [facility]OVID[facility] (ID NOW RAPID TESTING)2020-06-14 00:02:00* Test Item Value Reference Range Interpretation Comme nts SARS-CoV-2 Rapid ID NOW (test code = 25626-3) Not Detected Not Detected KARLA (test code = KARLA) ID NOW COVID-19 As say is an isothermal nucleic acid amplification test intended for the qualitative detection of nucleic acid from SARS-CoV-2 viral RNA in nasopharyngeal (ORTHODONTIST) specimens. It is used under Emergency Use [...] clinically indicated. Lab Interpretation (test code = 24007-3) Normal [facility] GLUCOSE (AUTOMATED)2020-06-13 23:45:50* Test Item Value Reference Range Interpretation Comme nts POCT GLU (test code = 2469176913) 113 mg/dL 70-110 H Lab Interpretation (test cod e = 01598-8) Abnormal [facility] URINALYSIS W SPECIFIC [id number] 15:41:00* Test Item Value Reference Range Interpretation [...] POCT U APPEAR (test code = 3267) [facility] URINALYSIS W SPECIFIC [id number] 14:47:00* Test Item Value Reference Range Interpretation [...] POCT U APPEAR (test code = 3267) [facility] URINALYSIS W SPECIFIC [id number] 14:47:00* Test Item Value Reference Range Interpretation [...] POCT U APPEAR (test code = 3267) [facility] URINALYSIS W SPECIFIC [id number] 14:47:00* Test Item Value Reference Range Interpretation [...] POCT U APPEAR (test code = 3267) [facility] URINALYSIS W SPECIFIC [id number] 16:26:00* Test Item Value Reference Range Interpretation [...] POCT U APPEAR (test code = 3267) [facility] URINALYSIS W SPECIFIC [id number] 19:14:00* Test Item Value Reference Range Interpretation [...] POCT U APPEAR (test code = 3267) [facility] URINALYSIS W SPECIFIC [id number] 20:26:00* Test Item Value Reference Range Interpretation [...] POCT U APPEAR (test code = 3267) [facility]UR[facility] [id number] 12:48:00* Test Item Value Reference Range Interpretation Comme nts URINE CULTURE (test code = 630-4) 10,000 - 100,000 CFU/mL mixed aerobic organisms - suggests endogenous microbial contamination [facility] ClubHIV 1/2 AG-AB WITH [id number] 04:51:00* Test Item Value Reference Range Interpretation Comme nts HIV Semi-quantitative (test code = 77048-5) Negative Negative KARLA (test code = KARLA) Non-reactive for HIV-1 antigen and HIV-1/HIV-2 antibodies. ?No laboratory evidence of HIV infection. ?Repeat in 2-4 weeks if acute HIV infection is suspected. [facility] ClubPRENATAL WORKUP, BLOOD [id number] 03:55:37 * Test Item Value Reference Range Interpretation Comme nts ABO & RH (test code = 20) B POSITIVE Performed at [facility] Laboratory Services - [facility] Blood [address] Free: [phone] No. [id number] IAT (test code = 1185) Negative Performed at [facility] Laboratory [facility] Blood [address] Free: [phone] No. [id number] [facility] ClubSARS-COV-2 [id number] 03:47:00* Test Item Value Reference Range Interpretation Comme nts CoV-2 IgG (test code = 18118-9) Negative Negative Negative result does not rule out acute SARS-CoV-2 infection. Clinical correlation as well as molecular diagnostic test are recommended to rule out acute infection if clinically indicated. KARLA (test code = KARLA) This test has been approved by FDA for emergency use. Lab Interpretation (test code = 29685-8) Normal [facility] ClubGlucose 1 Hour Post [id number] 03:34:00* Test Item Value Reference Range Interpretation Comme nts GLUC 1 HR (test code = 5034837300) 117 mg/dL 120-170 L Lab Interpretation (test cod e = 97415-2) Abnormal [facility] ClubHEPATITIS B SURFACE [id number] 03:33:00 * Test Item Value Reference Range Interpretation Comme nts HBsAg Semi-Quantitative (cristian t code = 5195-3) Negative Negative [facility] ClubTHYROID STIMULATING [id number] 03:33:00 * Test Item Value Reference Range Interpretation Comme nts TSH (test code = 0958842038) See_Comment [Automated messa ge] The system which generated this result transmitted reference range: 0.45 - 4.70 mIU/L. The reference range was not used to interpret this result as normal/abnormal. Lab Interpretation (test code = 84471-4) Normal [facility] ClubCOMP. METABOLIC PANEL (81672)2019-12-04 02:59:00* Test Item Value Reference Range Interpretation Comme nts NA (test code = 6483032016) 138 mmol/L 135-145 K (test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
[2024-02-07] MEDS ORDERED: NA CHLORIDE 0.9% 1,000 ML ONE (10:23)
[2024-02-07] MEDS ORDERED: METOCLOPRAMIDE 10 MG/2mL INJ ONE (10:23)
[2024-02-07] MEDS ORDERED: DIPHENHYDRAMINE 50 MG/ML VIAL ONE (10:23)
[2024-02-07] MEDS ORDERED: KETOROLAC 30 MG/ML INJ ONE (10:23)
[2024-02-07 10:28] LABS: Specific Gravity 1.015 (1.005-1.030)
[2024-02-07 10:29] LABS: Specific Gravity 1.015 (1.005-1.030); Sqamous Epithelial <5 /HPF (None Seen); Urine Bacteria None Seen /HPF (<20); Urine Bilirubin NEGATIVE (Negative); Urine Blood Negative (Negative); Urine Clarity Turbid (Clear); Urine Color Light-Yellow (Yellow); Urine Culture Reflex Order NOT NEEDED; Urine Glucose NEGATIVE (Negative); Urine Ketones NEGATIVE (Negative); Urine Microscopic Reflex YN ORDER UMIC; Urine Mucus Slight /HPF (None Seen); Urine Nitrite NEGATIVE (Negative); Urine Protein NEGATIVE (Negative); Urine RBC <5 /HPF (None Seen); Urine Urobilinogen Normal (Normal); Urine WBC <5 /HPF (<5)
[2024-02-07 10:35] LABS: Absolute Eosinophils 0.2 K/uL (0-0.5); Absolute Lymphocytes (CBC) 1.7 K/uL (0.7-4.9); Absolute Monocytes 0.5 K/uL (0.1-1.3); Absolute Neutrophil 3.9 K/uL (1.8-8.0); Basophils % 0.5 % (0-1.3); Eosinophils % 3.9 % (0-4.4); Hematocrit 41.4 % (36.0-45.0); Hemoglobin 13.8 g/dL (12.0-15.0); Lymphocytes % 26.7 % (15.3-44.8); MCH 28.3 pg (27.0-35.0); MCHC 33.3 g/dL (32.0-36.0); MCV 84.9 fL (80-100); MPV 7.5 fL (7.6-11.3); Monocytes % 7.4 % (3.3-12.3); Neutrophils % 61.5 % (41.7-73.7); Nucleated Red Blood Cells % 0.1 % (0-0); Platelets 342 thou/uL (152-406); RBC Red Blood Cell Count 4.88 M/uL (3.86-4.86); Red Cell Distribution Width 13.7 % (12.1-15.2)
[2024-02-07 10:43] LABS: Albumin 3.4 g/dL (3.4-5.0); Albumin/Globulin Ratio 0.9 (1.1-1.8); Anion Gap 6.7 mEq/L (5.0-15.0); Bilirubin Total 0.3 mg/dL (0.2-1.0); Globulin 3.9 g/dL (2.3-3.5); Potassium 3.7 mEq/L (3.5-5.1); Protein, Total 7.3 g/dL (6.4-8.2)
--- NOTE | 2024-02-07 11:21 | RAD REPORT ---
EXAMINATION: CT HEAD WITHOUT CONTRAST CLINICAL INDICATION: Female, 28 years old.HEADACHE TECHNIQUE: Axial CT images from the skull base to the vertex without intravenous contrast. Coronal an d sagittal reformatted images were created from the data set. One or more of the following dose reduction techniques were used: Automated exposure control, adjustment of the mA and/or kV according to patient size, and/or iterative reconstruction. Unless otherwise specified, incidental findings do not require dedicated imaging follow-up. [id number]. COMPARISON: No prior exam. FINDINGS: INTRACRANIAL: No acute intracranial hemorrhage. No hydrocephalus. No mass effect or midline shift. No significant white matter disease. VASCULATURE: No visualized abnormalities in the arteries or dural venous sinuses. SCALP/SKULL: No significant soft tissue or osseous abnormalities. SINUSES: The visualized paranasal sinuses and mastoid air cells are predominantly clear. IMPRESSION: No acute intracranial abnormality.
--- NOTE | 2024-02-07 11:30 | EDPHYS ---
Physician Documentation [facility] Name: Gail Juárez Age: 28 yrs Sex: Female : 1995 Arrival Date: 02/07/2024 Time: 09:36 Bed 2 Private MD: [place] Physician Nahum Roberts HPI: 02/06 10:03 This 28 yrs old Female presents to ER via Ambulatory with complaints of amber Headache. 10:03 The patient complains of pain to the top of head, forehead, left eye and left moravian. amber The patient describes the headache as constant. Onset: The symptoms/episode began/occurred 1 day(s) ago. Associated signs and symptoms: Pertinent positives: nausea. Severity of symptoms: At its worst the pain was moderate, in the emergency department the pain is unchanged. Headache History: The patient has had previous headaches and this one is more severe than previous episodes. The patient has experienced similar episodes in the past, several times. 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 - Infectious Disease History:: Denies. - Social history:: Smoking status: Patient denies any tobacco usage or history of. - Family history:: not pertinent. ROS: 10:03 Constitutional: Negative for fever, chills, and weight loss, Eyes: Negative for injury, amber pain, redness, and discharge, ENT: Negative for injury, pain, and discharge, Neck: Negative for injury, pain, and swelling, Cardiovascular: Negative for chest pain, palpitations, and edema, Respiratory: Negative for shortness of breath, cough, wheezing, and pleuritic chest pain, Abdomen/GI: Negative for abdominal pain, nausea, vomiting, diarrhea, and constipation, Back: Negative for injury and pain, : Negative for injury, bleeding, discharge, and swelling, MS/Extremity: Negative for injury and deformity, Skin: Negative for injury, rash, and discoloration, Psych: Negative for depression, anxiety, suicide ideation, homicidal ideation, and hallucinations, Allergy/Immunology: Negative for hives, rash, and allergies, Endocrine: Negative for neck swelling, polydipsia, polyuria, polyphagia, and marked weight changes, Hematologic/Lymphatic: Negative for swollen nodes, abnormal bleeding, and unusual bruising, 10:03 Neuro: Positive for headache, Exam: 10:03 Constitutional: This is a well developed, well nourished patient who is awake, alert, amber and in no acute distress. Head/Face: Normocephalic, atraumatic. Eyes: Pupils equal round and reactive to light, extra-ocular motions intact. Lids and lashes normal. Conjunctiva and sclera are non-icteric and not injected. Cornea within normal limits. Periorbital areas with no swelling, redness, or edema. ENT: Nares patent. No nasal discharge, no septal abnormalities noted. Tympanic membranes are normal and external auditory canals are clear. Oropharynx with no redness, swelling, or masses, exudates, or evidence of obstruction, uvula midline. Mucous membranes moist. Neck: Trachea midline, no thyromegaly or masses palpated, and no cervical lymphadenopathy. Supple, full range of motion without nuchal rigidity, or vertebral point tenderness. No Meningismus. Chest/axilla: Normal chest wall appearance and motion. Nontender with no deformity. No lesions are appreciated. Cardiovascular: Regular rate and rhythm with a normal S1 and S2. No gallops, murmurs, or rubs. Normal PMI, no JVD. No pulse deficits. Respiratory: Lungs have equal breath sounds bilaterally, clear to auscultation and percussion. No rales, rhonchi or wheezes noted. No increased work of breathing, no retractions or nasal flaring. Abdomen/GI: Soft, non-tender, with normal bowel sounds. No distension or tympany. No guarding or rebound. No evidence of tenderness throughout. Back: No spinal tenderness. No costovertebral tenderness. Full range of motion. Skin: Warm, dry with normal turgor. Normal color with no rashes, no lesions, and no evidence of cellulitis. MS/ Extremity: Pulses equal, no cyanosis. Neurovascular intact. Full, normal range of motion., bilateral aka Neuro: Awake and alert, GCS 15, oriented to person, place, time, and situation. Cranial nerves II-XII grossly intact. Motor strength 5/5 in all extremities. Sensory grossly intact. Cerebellar exam normal. Normal gait. Psych: Awake, alert, with orientation to person, place and time. Behavior, mood, and affect are within normal limits. Vital Signs: 09:50 BP 132 / 68; Pulse 93; Resp 18 S; Temp 98.1(O); Pulse Ox 100% on R/A; Weight 111.13 kg aa5 (R); Height 5 ft. 7 in. (R); 12:10 BP 124 / 75; Pulse 72; Resp 18; Temp 97.7; Pulse Ox 98% on R/A; ph 09:50 Body Mass Index 38.37 (111.13 kg, 170.18 cm) aa5 Finesse Coma Score: 10:04 Eye Response: spontaneous(4). Motor Response: obeys commands(6). Verbal Response: amber oriented(5). Total: 15. MDM: 09:41 Medical Screening Exam initiated amber 09:46 Medical Screening Exam initiated amber 10:04 Differential diagnosis: cluster headache, hyponatremia, migraine, subdural hematoma, amber temporal arteritis, tension headache, traumatic injuries. Data reviewed: vital signs, nurses notes, lab test result(s), radiologic studies, CT scan. Consideration of Admission/Observation Escalation of care including admission/observation considered. I considered the following discharge prescriptions or medication management in the emergency department Medications were administered in the Emergency Department. See MAR. Independent interpretation of the following test(s) in the Emergency Department CT Scan: My interpretation is ct head. Test considered but Not performed: EKG: no ekg. Care significantly affected by the following chronic conditions: Diabetes, Obesity. 02/06 10:02 Order name: CBC with Diff; Complete Time: 10:43 [facility] 02/06 10:02 Order name: Comprehensive Metabolic Panel; Complete Time: 11:03 [facility] 02/06 10:02 Order name: Urinalysis w/ reflexes; Complete Time: :43 [facility] 02/06 10:02 Order name: PREGU; Complete Time: :43 [facility] 02/06 10:02 Order name: CT Head Brain wo Cont; Complete Time: 11:29 [facility] Administered Medications: 10:32 Drug: NS 0.9% IV 1000 ml IV at 1000 ml once; to be given as a bolus over 60 minutes aa5 Route: IV; Rate: 1000 ml; Site: left antecubital; 11:35 Follow up: Response: No adverse reaction; IV Status: Completed infusion; IV Intake: ph 1000ml 10:32 Drug: Ketorolac IVP 30 mg IVP once Route: IVP; Site: left antecubital; aa5 12:11 Follow up: Response: No adverse reaction; Pain is decreased ph 10:32 Drug: metoCLOPramide IVP 10 mg IVP once; over 1 to 2 minutes Route: IVP; Site: left aa5 antecubital; 12:11 Follow up: Response: No adverse reaction; Pain is decreased ph 10:32 Drug: diphenhydrAMINE IVP 50 mg IVP once Route: IVP; Site: left antecubital; aa5 12:11 Follow up: Response: No adverse reaction ph Disposition Summary: 02/07/24 11:29 Discharge Ordered Notes: Location: Home amber Problem: new amber Symptoms: have improved amber Condition: Stable amber Diagnosis - Headache amber Followup: amber - With: Private Physician - When: 2 - 3 days - Reason: Recheck today's complaints, Continuance of care, Re-evaluation by your physician Followup: amber - With: Doroteo Mcrae MD - When: 2 - 3 days - Reason: Recheck today's complaints, Re-evaluation by your physician Discharge Instructions: - Discharge Summary Sheet amber - General Headache Without Cause amber - General Headache Without Cause, [id number] amber Forms: - Medication Reconciliation Form amber - Antibiotic Education amber - Prescription Opioid Use amber - Patient Portal Instructions amber - Leadership Thank You Letter [facility] Prescriptions: - ondansetron 4 mg Oral Tablet,disintegrating - take 1 tablet ORAL route every 6-8 hours for 5 days as needed for nausea and amber vomiting; 20 tablet; Refills: 0, Product Selection Permitted - Ibuprofen 600 mg Oral tablet - take 1 tablet ORAL route every 6 hours As needed take with food; 20 tablet; amber Refills: 0, Product Selection Permitted Signatures: Dispatcher [employer] Nahum Lr MD MD cha Calderon, Audri RN RN aa5 Mey Estes RN ph Corrections: (The following items were deleted from the chart) 10:03 10:03 CBC+H.LAB.BRZ ordered. EDUT EDMS 10:03 10:03 COMPREHENSIVE METABOLIC PANEL+C.LAB.BRZ ordered. EDMS EDMS 10:03 10:03 Urinalysis+U.LAB.BRZ ordered. EDMS EDMS 10:03 10:03 Test, Urine+UC.LAB.BRZ ordered. EDMS EDMS 10:03 10:03 Head Brain Wo Cont+CT.RAD.BRZ ordered. EDMS EDMS
--- NOTE | 2024-02-07 11:30 | ER ---
Nurse's Notes [facility] Name: Gail Juárez Age: 28 yrs Sex: Female : 1995 Arrival Date: 02/07/2024 Time: 09:36 Bed 2 Private MD: Diagnosis: Headache Presentation: 02/06 09:50 Chief complaint: Patient states: headache since 1400 yesterday. Today pt reports aa5 headache to left side of head radiating down to left side of neck, left ear, and left shoulder. Coronavirus screen: headache. Ebola Screen: Patient denies travel to an Ebola-affected area in the 21 days before illness onset. Initial Sepsis Screen: Does the patient meet any 2 criteria? No. Patient's initial sepsis screen is negative. Does the patient have a suspected source of infection? No. Patient's initial sepsis screen is negative. Risk Assessment: Do you want to hurt yourself or someone else? Patient reports no desire to harm self or others. Onset of symptoms was February 06, 2024. 09:50 Acuity: CHAYO 3 aa5 09:50 Method Of Arrival: Ambulatory aa5 HEALTHCARE TRANSLATOR: 09:52 LMP 01/30/2024, unknown aa5 Historical: - Allergies: 09:50 No Known Allergies; aa5 - Home Meds: 09:50 None [Active]; aa5 - PMHx: 09:50 pre-diabetic; aa5 - PSHx: 09:50 Cholecystectomy; Tonsillectomy; tubal ligation; wisdom tooth removal; aa5 - Immunization history:: Adult Immunizations unknown. - Infectious Disease History:: Denies. - Social history:: Smoking status: Patient denies any tobacco usage or history of. - Family history:: not pertinent. Screenin:[address] [facility] ED Fall Risk Assessment (Adult) History of falling in the last 3 months, aa5 including since admission No falls in past 3 months (0 pts) Confusion or Disorientation No (0 pts) Intoxicated or Sedated No (0 pts) Impaired Gait No (0 pts) Mobility Assist Device Used No (0 pt) Altered Elimination No (0 pt) Score/Fall Risk Level 0 - 2 = Low Risk Oriented to surroundings, Maintained a safe environment, Educated pt \T\ family on fall prevention, incl call for assistance when getting out of bed. Abuse screen: Denies threats or abuse. Nutritional screening: No deficits noted. Tuberculosis screening: No symptoms or risk factors identified. Assessment: 09:50 General: Appears uncomfortable, Behavior is calm, cooperative. Pain: Complains of pain aa5 in left side of head Pain radiates to left side of neck, left ear, and left shoulder Quality of pain is described as aching, radiating, shooting, Pain began 1 day ago. Is continuous. Neuro: Level of Consciousness is awake, alert, obeys commands, Oriented to person, place, time, situation. Cardiovascular: Patient's skin is warm and dry. Respiratory: Airway is patent Respiratory effort is even, unlabored, Respiratory pattern is regular, symmetrical. GI: Abdomen is round non-distended, Bowel sounds present X 4 quads. Abd is soft and non tender X 4 quads. Patient currently denies diarrhea, nausea, vomiting. : Denies burning with urination, inability to void, urinary frequency, urgency. EENT: No signs and/or symptoms were reported regarding the EENT system. Derm: Skin is pink, warm \T\ dry. Musculoskeletal: Range of motion: intact in all extremities. 09:59 Reassessment: MD at bedside . aa5 10:05 Reassessment: Pt ambulatory to restroom to provide urine specimen. . aa5 10:32 Reassessment: Patient is alert, oriented x 3, equal unlabored respirations, skin aa5 warm/dry/pink. 11:00 Reassessment: Pt to CT scan . aa5 11:40 Reassessment: Patient is alert, oriented x 3, equal unlabored respirations, skin aa5 warm/dry/pink. Patient denies pain at this time. Patient states feeling better. Patient states symptoms have improved. 12:10 Reassessment: Patient appears in no apparent distress at this time. Patient and/or ph family updated on plan of care and expected duration. Pain level reassessed. Patient is alert, oriented x 3, equal unlabored respirations, skin warm/dry/pink. Patient states feeling better. Patient states symptoms have improved. Vital Signs: 09:50 BP 132 / 68; Pulse 93; Resp 18 S; Temp 98.1(O); Pulse Ox 100% on R/A; Weight 111.13 kg aa5 (R); Height 5 ft. 7 in. (R); 12:10 BP 124 / 75; Pulse 72; Resp 18; Temp 97.7; Pulse Ox 98% on R/A; ph 09:50 Body Mass Index 38.37 (111.13 kg, 170.18 cm) aa5 Hunt Coma Score: 10:04 Eye Response: spontaneous(4). Motor Response: obeys commands(6). Verbal Response: amber oriented(5). Total: 15. ED Course: 09:39 Patient arrived in ED. ra3 09:41 Nahum Roberts MD is Attending Physician. amber 09:45 Arm band placed on Patient placed in an exam room, on a stretcher. aa5 09:45 Patient has correct armband on for positive identification. Placed in gown. Bed in low aa5 position. Call light in reach. Side rails up X 1. Pulse ox on. NIBP on. 09:49 Domi Gonzales, RN is Primary Nurse. aa5 09:52 Triage completed. aa5 10:11 Urine collected: clean catch specimen, sent to lab. aa5 10:17 Initial lab(s) drawn, by de, sent to lab. Inserted saline lock: 20 gauge in left aa5 antecubital area, using aseptic technique. Blood collected. Flushed with 10 mL NS. 11:07 CT Head Brain wo Cont In Process Unspecified. EDMS 11:29 Doroteo Mcrae MD is Referral Physician. amber 12:10 No provider procedures requiring assistance completed. IV discontinued, intact, ph bleeding controlled, No redness/swelling at site. Pressure dressing applied. Administered Medications: 10:32 Drug: NS 0.9% IV 1000 ml IV at 1000 ml once; to be given as a bolus over 60 minutes aa5 Route: IV; Rate: 1000 ml; Site: left antecubital; 11:35 Follow up: Response: No adverse reaction; IV Status: Completed infusion; IV Intake: ph 1000ml 10:32 Drug: Ketorolac IVP 30 mg IVP once Route: IVP; Site: left antecubital; aa5 12:11 Follow up: Response: No adverse reaction; Pain is decreased ph 10:32 Drug: metoCLOPramide IVP 10 mg IVP once; over 1 to 2 minutes Route: IVP; Site: left aa5 antecubital; 12:11 Follow up: Response: No adverse reaction; Pain is decreased ph 10:32 Drug: diphenhydrAMINE IVP 50 mg IVP once Route: IVP; Site: left antecubital; aa5 12:11 Follow up: Response: No adverse reaction ph Medication: 10:02 VIS not applicable for this client. aa5 Intake: 11:35 IV: 1000ml; Total: 1000ml. ph Outcome: 11:29 Discharge ordered by . amber 12:13 Discharged to home ambulatory, ph 12:13 Condition: good 12:13 Discharge instructions given to patient, Instructed on discharge instructions, follow up and referral plans. medication usage, Demonstrated understanding of instructions, follow-up care, medications, Prescriptions given X 2, 12:14 Patient left the ED. ph Signatures: Dispatcher [employer] EDNahum Mike MD MD cha Calderon, Audri, RN RN aa5 Mey Estes RN RN ph Mariam, Crystal [email or web address]
[2024-02-07 12:32] VITALS: BP 132/68; TEMP 98.1; O2SAT 100
== END 2024-02-07 12:14 | disposition home or self-care (01) ==
LOC: ER 09:36
DX: R51.9 Headache, unspecified (principal); R11.0 Nausea
CPT/HCPCS: 36415; 70450; 80053; 81001; 81025; 85025; 96361; 96374; 96375; 99284; J1200; J2765; J7030

== ENCOUNTER 2024-02-19 10:44 | Emergency (ER) | payer SELFPAY ==
--- OUTSIDE RECORDS SUMMARY | 2024-02-19 10:50 | XMS REPORT | Continuity of Care Document ---
Author Name Unknown Address [address] [facility] [address] [place] [address] [facility] thconnect Address [address] [facility] [place] [address] Care Team Providers Care Fence Post Cutter Name Role Phone Craig Dayday MCLEOD Primary Care Physician LIZETTE LUGO Attending Clinician Unavail able Lizette Patino Attending Clinician + Libby GOMEZ, Naomi Baig Attending Clinician + Kate Rome MD Attending Clinician [phone] Risk, Tpg-Hkngn-Wk/High Attending Clinician Albav Mary Grace Varela Attending Clinician [phone] Ultrasound, Ang-Mfm Attending Clinician Bowen Acosta MD, Dion Harman Attending Clinician [phone] TONIO ECHOLS Attending Clinician Unavailable Jaclyn Duval MD Attending Clinician [phone] Radah Mehta MD Attending Clinician [phone] Doctor Unassigned, [place] Attending Clinician U ARSALAN Yang Attending Clinician Unavail able Arsalan Blandon DO Attending Clinician [phone] DAYDAY GRAHAM Attending Clinician Unavailabl e Lab, Ang-Rmchp Attending Clinician Unavailable Dayday Rey Attending Clinician [phone] Candice Tara DICKERSON Attending Clinician [phone] Tamiko Goncalves MD Attending Clinician [phone] Paul Montero Attending Clinician [phone] PAUL AREVALO Attending Clinician Unavailable theresa Attending Clinician Unavailable Altagracia Blandon MD Attending Clinician [phone] Yas Cordero Attending Clinician +[phone] Herman KWOK, Virginie Galvez Attending Clinician UnavailKATE Aleman Admitting Clinician Unavailable JACLYN DUVAL Admitting Clinician Unavailable RADHA MEHTA Admitting Clinician Unavailable Libby GOMEZ, Naomi Baig Admitting Clinician + Jaclyn Duval MD Admitting Clinician [phone] Radha Mehta MD Admitting Clinician [phone] theresa Admitting Clinician Unavailable Altargacia Blandon MD Admitting Clinician [phone] Yas Cordero Admitting Clinician [phone] Payers Payer Name Policy Type Policy Number Effective Date Expirati on Date Source [facility] [id number] 2020 00:00:00 MEDICAID PENDING PENDING 2020 00:00:00 Problems Condition Name Condition Details Condition Category Status Onset Date Resolution Date Last Treatment Date Treating Clinician Comments Source Other general counseling and advice for contracept mark management Other general counseling and advice for contracept mark management Disease Active 7-14 00:00: 00 [facility] Well woman exam Well woman exam Disease Active 2021-0 6-21 00:00: 00 [facility] History of tubal ligation History of tubal ligation Disease Active 0 6-21 00:00: 00 [facility] Single liveborn Single liveborn Disease Active 5-30 00:00: 00 [facility] (spontaneo us vaginal delivery) (spontaneo us vaginal delivery) Disease Active 530 00:00: 00 [facility] 37 weeks gestation of 37 weeks gestation of Disease Active 528 00:00: 00 [facility] 36 weeks gestation of 36 weeks gestation of Disease Active 522 00:00: 00 [facility] High-risk in third trimester High-risk in third trimester Disease Active 520 00:00: 00 [facility] Oral hypoglycem ic controlled White classifica tion A2 gestationa l diabetes mellitus (GDM) Oral hypoglycem ic controlled White classifica tion A2 gestationa l diabetes mellitus (GDM) Disease Active 520 00:00: 00 [facility] Abnormal finding in urine Abnormal finding in urine Disease Active 520 00:00: 00 [facility] Hematuria, unspecifie d type Hematuria, unspecifie d type Disease Active 520 00:00: 00 [facility] Diabetes mellitus complicati ng , antepartum Diabetes mellitus complicati ng , antepartum Disease Active -18 00:00: 00 [facility] Diabetes mellitus complicati ng , antepartum Diabetes mellitus complicati ng , antepartum Disease Active 3-18 00:00: 00 [facility] GDM (gestation al diabetes mellitus) GDM (gestation al diabetes mellitus) Disease Active 3-18 00:00: 00 [facility] Abnormal maternal glucose tolerance, antepartum Abnormal maternal glucose tolerance, antepartum Disease Active 3-10 00:00: 00 Overview: Formattin g of this note might be different from the original. Pending 3hr gtt [facility] Anemia of mother in , antepartum Anemia of mother in , antepartum Disease Active 3-05 00:00: 00 [facility] Dizziness and giddiness Dizziness and giddiness Disease Active 3-04 00:00: 00 [facility] Obesity (BMI 30-39.9) Obesity (BMI 30-39.9) Disease Active 2019-02 00:00: 00 [facility] Supervisio n of high risk in second trimester Supervisio n of high risk in second trimester Disease Active 2019-02 00:00: 00 [facility] Multiparit y Multiparit y Disease Active 2019-02 00:00: 00 [facility] Obesity complicati ng , childbirth , or puerperium , antepartum Obesity complicati ng , childbirth , or puerperium , antepartum Disease Active 2019-02 00:00: 00 [facility] Tubal ligation evaluation Tubal ligation evaluation Disease Active 2019-02 00:00: 00 [facility] Refused influenza vaccine Refused influenza vaccine Disease Active 2019-02 00:00: 00 [facility] Elevated BP without diagnosis of hypertensi on Elevated BP without diagnosis of hypertensi on Disease Active 2019-02 00:00: 00 [facility] Nausea and vomiting during Nausea and vomiting during Disease Active 2019-02 00:00: 00 [facility] screening for Down syndrome declined screening for Down syndrome declined Disease Active 2019-02 00:00: 00 [facility] Obesity in Obesity in Disease Active 2019-02 00:00: 00 [facility] Nexplanon removal Nexplanon removal Disease Active 2018-02 00:00: 00 Overview: Placed 11/2018 removed 02/2019 [facility] Well woman exam Well woman exam Disease Active 2018-02 0-07 00:00: 00 [facility] Routine follow-up Routine follow-up Disease Active 9-16 00:00: 00 [facility] Anemia, Anemia, Disease Active 20190 8-26 00:00: 00 [facility] Anemia, Anemia, Disease Active 20190 8-26 00:00: 00 [facility] 38 weeks gestation of 38 weeks gestation of Disease Active 20190 8-25 00:00: 00 [facility] Nausea & vomiting Nausea & vomiting Disease Active 20190 825 00:00: 00 [facility] Encounter for induction of labor Encounter for induction of labor Disease Active 2019 8 00:00: 00 [facility] Obesity (BMI 30-39.9) Obesity (BMI 30-39.9) Disease Active 20190 8-12 00:00: 00 [facility] Decreased movements in third trimester Decreased movements in third trimester Disease Active 2019 8-12 00:00: 00 [facility] 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 Disease Active 2019 8-09 00:00: 00 [facility] Pain of round ligament affecting , antepartum Pain of round ligament affecting , antepartum Disease Active 20190 5-20 00:00: 00 [facility] Vaginal yeast infection Vaginal yeast infection Disease Active 20190 3-13 00:00: 00 [facility] Headache in Headache in Disease Active 20190 3-04 00:00: 00 [facility] Nausea and vomiting during Nausea and vomiting during Disease Active 2019 2-04 00:00: 00 [facility] Chlamydia trachomati s infection of lower genitourin fiona sites Chlamydia trachomati s infection of lower genitourin fiona sites Disease Active 20190 1-08 00:00: 00 Overview: Jhon negative repeat at 36 weeks [facility] Abnormal maternal glucose tolerance, antepartum Abnormal maternal glucose tolerance, antepartum Disease Active 2019 1-05 00:00: 00 Overview: Passed early 3hr, will need 3hr at 28 weeks -passed [facility] Influenza vaccinatio n declined Influenza vaccinatio n declined Disease Active 2019 1-04 00:00: 00 [facility] History of hypothyroi dism History of hypothyroi dism Disease Active 02-20 00:00: 00 Overview: No medicatio n, consider labs second trimester [facility] Rubella non-immune status, antepartum Rubella non-immune status, antepartum Disease Active 2013-02 00:00: 00 [facility] Obesity affecting in third trimester Obesity affecting in third trimester Disease Active 2013-02 00:00: 00 Overview: Formattin g of this note might be different from the original. 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 [facility] Supervisio n of high-risk Supervisio n of high-risk Disease Active 2013-02 00:00: 00 [facility] Allergies, Adverse Reactions, Alerts Allergy Name Allergy Type Status Severity Reaction(s) Onset Date Inactive Date Treating Clinician Comments Source No Known Allergie s DA Active U 06-04 00:00: 00 [facility] No Known Allergie s DA Active U 06-04 00:00: 00 [facility] NO KNOWN ALLERGIE S Drug Class Active [facility] Social History Social Habit Start Date Stop Date Quantity Comments Source ASSERTION 2019-11-08 00:00:00 [facility] Exposure to SARS-CoV-2 (event) 2020-07-31 00:00:00 2020-08-30 [...] Date Stop Date Source Never smoked tobacco [facility] Medications Ordered Medication Name Filled Medication Name Start Date Stop Date Current Medication? Ordering Clinician Indication Dosage Frequency Signature (SIG) Comments Components Source HYDROcodone -acetaminop hen (NORCO 5) 5-325 mg tablet 1 tablet 07-16 01:56: 22 Yes 1{tbl} 1 tablet, Oral, Q6HPRN, Starting 07/15/20 at 2055, Until Discontinu ed, Routine, Pain (scale 7-10) [facility] rho(D) immune globulin (RHOGAM) syringe 300 mcg 07-16 01:39: 54 Yes 300ug 300 mcg, Intramuscu lar, ONCE, For 1 dose, Conditiona l, Routine Univers [facility] ondansetron (ZOFRAN (PF)) injection 4 mg 07-16 01:39: 06 Yes 4mg 4 mg, Slow IV Push, Q8HPRN, Starting 07/15/20 at 2038, Until Discontinu ed, Routine, Nausea and Vomiting (N/V) [facility] simethicone (GAS RELIEF (SIMETHICON E)) chewable tablet 160 mg 07-16 01:39: 06 Yes 160mg 160 mg, Oral, PC+HSPRN, Starting 07/15/20 at 2038, Until Discontinu ed, Routine, Gas Univers [facility] acetaminoph en (TYLENOL) tablet 650 mg 07-16 01:39: 05 Yes 650mg 650 mg, Oral, Q6HPRN, Starting 07/15/20 at 2038, Until Discontinu ed, Routine, Pain (scale 1-3) [facility] diphenhydrA MINE (BENADRYL) tablet 25 mg 07-16 01:39: 05 Yes 25mg 25 mg, Oral, Q6HPRN, Starting 07/15/20 at 2038, Until Discontinu ed, Routine, Sleep, Itching Univers [facility] diphenhydrA MINE-0.9 % sod.chlr (BENADRYL) 25 mg/50 mL piggyback 25 mg 07-16 01:39: 05 Yes 25mg 25 mg, IV Piggyback, Administer over 30 Minutes, Q6HPRN, Starting 07/15/20 at 2038, Until Discontinu ed, Routine, Itching [facility] docusate calcium (SURFAK) capsule 240 mg 07-16 01:39: 05 Yes 240mg 240 mg, Oral, QDAILYPRN, Starting 07/15/20 at 2038, Until Discontinu ed, Routine, Constipati on [facility] magnesium hydroxide (MILK OF MAGNESIA) 400 mg/5 mL suspension 30 mL 07-16 01:39: 05 Yes 30mL 30 mL, Oral, QDAILYPRN, Starting 07/15/20 at 2038, Until Discontinu ed, Routine, Constipati on [facility] benzocaine- menthol (DERMOPLAST ) 20-0.5 % topical spray 07-16 01:39: 05 Yes Topical, PRN, Starting 07/15/20 at 2038, Until Discontinu ed, Routine, Perineum discomfort [facility] acetaminoph en ADULT (OFIRMEV) injection 1,000 mg 07-16 01:00: 00 07-16 00:23 :00 No 1000mg 1,000 mg, IV Infusion, Administer over 15 Minutes, ONCE, 1 dose, 07/15/20 at 2000, Routine, PACU
In dication: Perioperat mark Patient [facility] ketorolac (TORADOL) injection 30 mg 07-16 00:01: 12 07-16 00:51 :00 No 30mg 30 mg, Slow IV Push, Q6HPRN, 1 dose, Starting 07/15/20 at 1901, Until 07/15/20 at 195, Routine, Pain (scale 4-6), [facility] : KELLEN KENNEDY [facility] vitamin w/FA tablet 07-16 00:00: 00 Yes [id number] 1{tbl} Take 1 tablet by mouth daily. [facility] ferrous sulfate 325 mg (65 mg iron) tablet 07-16 00:00: 00 Yes [id number] 325mg Take 1 tablet by mouth 2 (two) times daily. [facility] docusate calcium 240 mg capsule 07-16 00:00: 00 Yes [id number] 240mg Take 1 capsule by mouth once daily as needed for Constipati on. [facility] ibuprofen 600 mg tablet 07-16 00:00: 00 Yes [id number] 600mg Take 1 tablet by mouth every 6 (six) hours as needed for Pain (scale 4-6). [facility] acetaminoph en 325 mg tablet 07-16 00:00: 00 07-17 04:59 :00 No [id number] 650mg Take 2 tablets by mouth every 6 (six) hours as needed for Pain (scale 1-3). [facility] bupivacaine (preserv free) (SENSORCAIN E MPF) 0.25 % (2.5 mg/mL) injection 07-15 23:06: 00 Yes PRN, Starting 07/15/20 at 1806, Until Discontinu ed, Routine, Intra-op [facility] ibuprofen (IBU) tablet 600 mg 07-15 19:22: 05 Yes 600mg 600 mg, Oral, Q6HPRN, Starting 07/15/20 at 1422, Until Discontinu ed, Routine, Pain (scale 4-6) [facility] ibuprofen (IBU) tablet 600 mg 07-15 19:22: 07-15 19:25 :00 No 600mg 600 mg, Oral, ONCE, 1 dose, 07/15/20 at 1430, Routine [facility] ondansetron (ZOFRAN (PF)) injection 4 mg 07-15 15:54: 00 07-15 15:56 :00 No 4mg 4 mg, Slow IV Push, ONCE, 1 dose, 07/15/20 at 1100, Routine [facility] LR 1000 mL + oxytocin 20 units IV Solution 07-15 14:45: 00 07-15 17:23 :00 No 999mL/h 999 mL/hr, IV Infusion, ONCE, 07/15/20 at 0945, For 1 dose
In fuse 999 mL /hr & nbsp;over 30 minutes and then decrease rate to 125 mL/hr for the remainder.
[facility] pantoprazol e (PROTONIX) EC tablet 40 mg 07-15 14:00: 00 Yes 40mg 40 mg, Oral, DAILY, First dose on 07/15/20 at 0900, Until Discontinu ed, Routine [facility] lactated ringers IV infusion 500 mL 07-15 08:30: 00 07-15 07:48 :00 No 500mL at 999 mL/hr, 500 mL, IV Infusion, ONCE, 1 dose, 07/15/20 at 0330, Routine [facility] sodium citrate-cit gloria acid (BICITRA) 500-334 mg/5 mL solution 30 mL 07-15 07:27: 28 07-15 22:30 :00 No 30mL 30 mL, Oral, PRE-PROCED URE ONCE, 1 dose, Starting 07/15/20 at 0227, Until Discontinu ed, Routine, Surgery/Pr ocedure [facility] butalbital- acetaminoph en-caff (ESGIC) 50-325-40 mg tablet 2 tablet 07-15 07:15: 00 07-15 06:20 :00 No 2{tbl} 2 tablet, Oral, ONCE, 1 dose, 07/15/20 at 0215, Routine [facility] D5W-LR IV infusion 1,000 mL 07-15 04:00: 00 07-16 01:39 :54 No 1000mL at 125 mL/hr, IV Infusion, CONTINUOUS , Starting Fri07/14/20 at 2300, Until 07/15/20 at 2039, Routine [facility] Sliding Scale Insulin - Regular + Fsbg Testing 07-15 03:58: 17 07-16 01:39 :54 No Subcutaneo us, SEE-INSTRU CTIONS, Starting Fri07/14/20 at 2258, Until 07/15/20 at 2039, Routine [facility] sodium citrate-cit gloria acid (BICITRA) 500-334 mg/5 mL solution 30 mL 07-15 03:57: 09 07-15 07:47 :00 No 30mL 30 mL, Oral, PRE-PROCED URE ONCE, 1 dose, Starting 07/14/20 at 2257, Until Discontinu ed, Routine, Surgery/Pr ocedure [facility] metroNIDAZO LE 500 mg tablet 07-09 00:00: 00 07-16 00:00 :00 No [id number] 500mg Take 1 tablet by mouth 2 (two) times daily. [facility] glyBURIDE 2.5 mg tablet 06-22 00:00: 00 07-16 00:00 :00 No [id number] Take 1 tab PO AC breakfast and 1 tab PO HS with snack [facility] pantoprazol e (PROTONIX) 40 mg EC tablet 06-22 00:00: 00 07-16 00:00 :00 No [id number] 40mg Take 1 tablet by mouth daily. [facility] proMETHazin e 25 mg tablet 06-22 00:00: 00 07-16 00:00 :00 No [id number] 25mg Take 1 tablet by mouth every 6 (six) hours as needed for Nausea and Vomiting (N/V). [facility] Lancets (ONETOUCH ULTRASOFT LANCETS) [facility] 05-04 00:00: 00 Yes [id number] Check blood glucose 4x daily [facility] Blood-Gluco se Meter (ONETOUCH ULTRA2 METER) Kit 05-04 00:00: 00 07-16 00:00 :00 No [id number] Check blood glucose 4x dialy [facility] Lancets (ONETOUCH ULTRASOFT LANCETS) [facility] 05-04 00:00: 00 07-16 00:00 :00 No [id number] Check blood glucose 4x daily [facility] blood sugar diagnostic (ONETOUCH VERIO TEST STRIPS) strip 3-18 00:00: 00 07-16 00:00 :00 No [id number] Check blood glucose 4x daily [facility] ascorbic acid, vitamin C, 500 mg tablet 310 00:00: 00 07-16 00:00 :00 No [id number] 500mg Take 1 tablet by mouth 3 (three) times daily. [facility] ferrous sulfate 325 mg (65 mg iron) tablet 04-26 00:00: 00 07-16 00:00 :00 No [id number] 325mg Take 1 tablet by mouth 2 (two) times daily. [facility] ferrous sulfate 325 mg (65 mg iron) tablet 04-21 00:00: 00 Yes [id number] 325mg Take 1 tablet by mouth 2 (two) times daily. [facility] ascorbic acid, vitamin C, 500 mg tablet 04-21 00:00: 00 Yes [id number] 500mg Take 1 tablet by mouth 3 (three) times daily. [facility] PNV 67-iron ps-folate no.1-dha (VITAFOL ULTRA) 29 mg iron- 1 mg-200 mg Cap 2019-02 2-15 00:00: 00 07-16 00:00 :00 No [id number] 1{capsu le} Take 1 capsule by mouth daily. [facility] PNV 67-iron ps-folate no.1-dha (VITAFOL ULTRA) 29 mg iron- 1 mg-200 mg Cap 2019-02 2-15 00:00: 00 07-16 00:00 :00 No [id number] 1{capsu le} Take 1 capsule by mouth daily. [facility] measles, mumps + rubella vac (M-M-R II) 1,000-12,50 0 TCID50/0.5 mL injection 0.5 mL 10-13 13:00: 00 10-13 17:27 :00 No .5mL 0.5 mL, Subcutaneo us, ONCE, 1 dose, omar 10/13/18 at 0800, Routine [facility] vitamin w/FA tablet 10-13 00:00: 00 12-02 00:00 :00 No [id number] 1{tbl} Take 1 tablet by mouth daily. [facility] docusate calcium 240 mg capsule 10-13 00:00: 00 12-02 00:00 :00 No [id number] 240mg Take 1 capsule by mouth once daily as needed for Constipati on. [facility] ferrous sulfate 325 mg (65 mg iron) tablet 10-13 00:00: 12-02 00:00 :00 No [id number] 325mg Take 1 tablet by mouth 2 (two) times daily. [facility] ibuprofen 600 mg tablet 10-13 00:00: 00 12-02 00:00 :00 No [id number] 600mg Take 1 tablet by mouth every 6 (six) hours as needed for Pain (scale 1-3) or Pain (scale 4-6) (Pain). Take with food or milk. [facility] human papillomav vac,9-katherine(P F) (GARDASIL 9 (PF)) vial 0.5 mL 10-12 10:32: 12 Yes .5mL 0.5 mL, Intramuscu lar, ONCE-PRIOR TO DISCHARGE, 1 dose, Starting 10/12/18 at 0532, Until Discontinu ed, Routine, Give vaccine prior to discharge [facility] acetaminoph en (TYLENOL) tablet 650 mg 10-12 10:32: 12 Yes 650mg 650 mg, Oral, Q6HPRN, Starting 10/12/18 at 0532, Until Discontinu ed, Routine, Pain (scale 1-3) [facility] ibuprofen (IBU) tablet 600 mg 10-12 10:32: 12 Yes 600mg 600 mg, Oral, Q6HPRN, Starting 10/12/18 at 0532, Until Discontinu ed, Routine, Pain (scale 4-6) [facility] diphenhydrA MINE (BENADRYL) tablet 25 mg 10-12 10:32: 12 Yes 25mg 25 mg, Oral, Q6HPRN, Starting Fri10/12/18 at 0532, Until Discontinu ed, Routine, Sleep, Itching [facility] ondansetron (ZOFRAN (PF)) injection 4 mg 10-12 10:32: 12 Yes 4mg 4 mg, Slow IV Push, Q8HPRN, Starting Fri10/12/18 at 0532, Until Discontinu ed, Routine, Nausea and Vomiting (N/V) [facility] simethicone (GAS RELIEF) chewable tablet 160 mg 10-12 10:32: 12 Yes 160mg 160 mg, Oral, PC+HSPRN, Starting Fri10/12/18 at 0532, Until Discontinu ed, Routine, Gas [facility] docusate calcium (SURFAK) capsule 240 mg 10-12 10:32: 12 Yes 240mg 240 mg, Oral, QDAILYPRN, Starting Fri10/12/18 at 0532, Until Discontinu ed, Routine, Constipati on [facility] magnesium hydroxide (MILK OF MAGNESIA) 400 mg/5 mL suspension 30 mL 10-12 10:32: 12 Yes 30mL 30 mL, Oral, QDAILYPRN, Starting Fri10/12/18 at 0532, Until Discontinu ed, Routine, Constipati on [facility] benzocaine- menthol (DERMOPLAST ) 20-0.5 % topical spray 10-12 10:32: 12 Yes Topical, PRN, Starting Fri10/12/18 at 0532, Until Discontinu ed, Routine, Perineum discomfort [facility] ondansetron (ZOFRAN (PF)) injection 4 mg 10-12 08:15: 00 10-12 07:21 :00 No 4mg 4 mg, Slow IV Push, ONCE, 1 dose, Fri10/12/18 at 0315, Routine [facility] LR 1000 mL + oxytocin 20 units IV Solution 10-12 06:45: 00 10-12 05:57 :00 No at 999 mL/hr, IV Infusion, ONCE, 1 dose, Fri10/12/18 at 0145, Routine [facility] sodium citrate-cit gloria acid (BICITRA) 500-334 mg/5 mL solution 30 mL 10-11 21:25: 17 10-11 21:43 :00 No 30mL 30 mL, Oral, PRE-PROCED URE ONCE, 1 dose, Starting 10/11/18 at 1625, Until Discontinu ed, Routine, Surgery/Pr ocedure [facility] LR 1000 mL + oxytocin 20 units IV Solution 10-11 17:44: 00 10-12 10:32 :17 No 2mU/min 2 radha-unit s/min (6 mL/hr), at 6 mL/hr, IV Infusion, TITRATE, Starting 10/11/18 at 1244, Until 10/12/18 at 0532, TERI, CTX q2m [facility] acetaminoph en-caff-but albital (ESGIC) per capsule 710 00:00: 00 12-02 00:00 :00 No [id number] 1{capsu le} Take 1 capsule by mouth every 6 (six) hours as needed for Pain. [facility] proMETHazin e 25 mg tablet 510 00:00: 00 12-02 00:00 :00 No [id number] 25mg Take 1 tablet by mouth every 6 (six) hours as needed for Nausea and Vomiting (N/V). [facility] acetaminoph en-caff-but albital (ESGIC) per capsule 510 00:00: 00 09-30 00:00 :00 No [id number] 1{capsu le} Take 1 capsule by mouth every 6 (six) hours as needed (headache) . [facility] proMETHazin e 25 mg tablet -17 00:00: 00 09-30 00:00 :00 No [id number] 25mg Take 1 tablet by mouth every 6 (six) hours as needed for Nausea and Vomiting (N/V). [facility] No known medications No Un indra [facility] No known medications No Un indra [facility] No known medications No Un indra [facility] Immunizations Ordered Immunization Name Filled Immunization Name [...] Club TDAP (ADACEL) VACCINE 2018-07-29 00:00:00 Completed [facility] TDAP (ADACEL) VACCINE 2018-07-29 00:00:00 Completed [facility] TDAP (ADACEL) VACCINE 2018-07-29 00:00:00 Completed [facility] TDAP (ADACEL) VACCINE 2018-07-29 00:00:00 Completed [facility] TDAP (ADACEL) VACCINE 2018-07-29 00:00:00 Completed [facility] TDAP (ADACEL) VACCINE 2018-07-29 00:00:00 Completed [facility] TDAP (ADACEL) VACCINE 2018-07-29 00:00:00 [...] Club TDAP (ADACEL) VACCINE 2018-07-29 00:00:00 Completed [facility] TDAP (ADACEL) VACCINE 2018-07-29 00:00:00 Completed [facility] TDAP (ADACEL) VACCINE 2018-07-29 00:00:00 Completed [facility] TDAP (ADACEL) VACCINE 2018-07-29 00:00:00 [...] Systolic blood pressure 2020-08-30 13:38:00 125 mm[Hg] [facility] Diastolic blood pressure 2020-08-30 13:38:00 80 mm[Hg] [facility] Heart rate 2020-08-30 13:38:00 67 /min [facility] Body temperature 2020-08-30 13:38:00 36.5 Anel [facility] Respiratory rate 2020-08-30 13:38:00 16 /min [facility] Body height 2020-08-30 13:38:00 170.2 cm [facility] Body weight 2020-08-30 13:38:00 103.023 kg [facility] BMI 2020-08-30 13:38:00 35.57 kg/m2 [facility] Systolic blood pressure 2020-08-07 14:31:00 118 mm[Hg] [facility] Diastolic blood pressure 2020-08-07 14:31:00 79 mm[Hg] [facility] Heart rate 2020-08-07 14:31:00 60 /min [facility] Body temperature 2020-08-07 14:31:00 36.83 Anel [facility] Respiratory rate 2020-08-07 14:31:00 16 /min [facility] Body height 2020-08-07 14:31:00 170.2 cm [facility] Body weight 2020-08-07 14:31:00 101.379 kg [facility] BMI 2020-08-07 14:31:00 35.01 kg/m2 [facility] Systolic blood pressure 2020-07-16 12:54:00 124 mm[Hg] [facility] Diastolic blood pressure 2020-07-16 12:54:00 74 mm[Hg] [facility] Heart rate 2020-07-16 12:54:00 67 /min [facility] Body temperature 2020-07-16 12:54:00 36.22 Anel [facility] Respiratory rate 2020-07-16 12:54:00 18 /min [facility] Oxygen saturation in Arterial blood by Pulse oximetry 2020-07-16 12:54:00 97 /min [facility] Systolic blood pressure 2020-07-15 15:20:00 120 mm[Hg] [facility] Diastolic blood pressure 2020-07-15 15:20:00 53 mm[Hg] [facility] Heart rate 2020-07-15 15:20:00 85 /min [facility] Respiratory rate 2020-07-15 15:20:00 18 /min [facility] Oxygen saturation in Arterial blood by Pulse oximetry 2020-07-15 15:20:00 100 /min [facility] Body temperature 2020-07-15 14:20:00 36.72 Anel [facility] Systolic blood pressure 2020-07-10 19:56:00 130 mm[Hg] [facility] Diastolic blood pressure 2020-07-10 19:56:00 81 mm[Hg] [facility] Heart rate 2020-07-10 19:56:00 87 /min [facility] Body temperature 2020-07-10 19:56:00 36.78 Anel [facility] Respiratory rate 2020-07-10 19:56:00 16 /min [facility] Body height 2020-07-10 19:56:00 170.2 cm [facility] Body weight 2020-07-10 19:56:00 111.613 kg [facility] BMI 2020-07-10 19:56:00 38.54 kg/m2 [facility] Systolic blood pressure 2020-07-06 19:35:00 132 mm[Hg] [facility] Diastolic blood pressure 2020-07-06 19:35:00 72 mm[Hg] [facility] Heart rate 2020-07-06 19:35:00 98 [facility] Body temperature 2020-07-06 19:35:00 36.78 Anel [facility] Respiratory rate 2020-07-06 19:35:00 16 /min [facility] Body height 2020-07-06 19:35:00 170.2 cm [facility] Body weight 2020-07-06 19:35:00 110.224 kg [facility] BMI 2020-07-06 19:35:00 38.06 kg/m2 [facility] Systolic blood pressure 2020-07-03 19:46:00 125 mm[Hg] [facility] Diastolic blood pressure 2020-07-03 19:46:00 79 mm[Hg] [facility] Heart rate 2020-07-03 19:46:00 99 /min [facility] Body temperature 2020-07-03 19:46:00 36.89 Anel [facility] Respiratory rate 2020-07-03 19:46:00 16 /min [facility] Body height 2020-07-03 19:46:00 170.2 cm [facility] Body weight 2020-07-03 19:46:00 110.309 kg [facility] BMI 2020-07-03 19:46:00 38.09 kg/m2 [facility] Systolic blood pressure 2020-06-29 18:35:00 135 mm[Hg] [facility] Diastolic blood pressure 2020-06-29 18:35:00 71 mm[Hg] [facility] Heart rate 2020-06-29 18:35:00 94 /min [facility] Body temperature 2020-06-29 18:35:00 36.44 Anel [facility] Respiratory rate 2020-06-29 18:35:00 16 /min [facility] Body height 2020-06-29 18:35:00 170.2 cm [facility] Body weight 2020-06-29 18:35:00 109.487 kg [facility] BMI 2020-06-29 18:35:00 37.80 kg/m2 [facility] Systolic blood pressure 2020-06-26 19:04:00 137 mm[Hg] [facility] Diastolic blood pressure 2020-06-26 19:04:00 79 mm[Hg] [facility] Heart rate 2020-06-26 19:04:00 97 /min [facility] Body temperature 2020-06-26 19:04:00 36.89 Anel [facility] Respiratory rate 2020-06-26 19:04:00 16 /min [facility] Body height 2020-06-26 19:04:00 170.2 cm [facility] Body weight 2020-06-26 19:04:00 110.252 kg [facility] BMI 2020-06-26 19:04:00 38.07 kg/m2 [facility] Systolic blood pressure 2020-06-22 14:09:00 127 mm[Hg] [facility] Diastolic blood pressure 2020-06-22 14:09:00 72 mm[Hg] [facility] Heart rate 2020-06-22 14:09:00 94 /min [facility] Body temperature 2020-06-22 14:09:00 36.67 Anel [facility] Respiratory rate 2020-06-22 14:09:00 16 /min [facility] Body height 2020-06-22 14:09:00 170.2 cm [facility] Body weight 2020-06-22 14:09:00 108.977 kg [facility] BMI 2020-06-22 14:09:00 37.63 kg/m2 [facility] Heart rate 2020-06-13 23:55:00 105 /min [facility] in [facility]terial blood by Pulse oximetry 2020-06-13 23:55:00 100 /min [facility] Systolic blood pressure 2020-06-13 23:30:00 138 mm[Hg] [facility] Diastolic blood pressure 2020-06-13 23:30:00 76 mm[Hg] [facility] Body temperature 2020-06-13 23:17:00 36.89 Anel [facility] Respiratory rate 2020-06-13 23:17:00 18 /min [facility] Body height 2020-06-13 23:17:00 170.2 cm [facility] Body weight 2020-06-13 23:17:00 108.773 kg [facility] BMI 2020-06-13 23:17:00 37.56 kg/m2 [facility] Systolic blood pressure 2020-06-06 00:45:00 146 mm[Hg] [facility] Diastolic blood pressure 2020-06-06 00:45:00 84 mm[Hg] [facility] Heart rate 2020-06-06 00:45:00 99 /min [facility] in Arterial blood by Pulse oximetry 2020-06-06 00:45:00 100 /min [facility] Body temperature 2020-06-05 23:36:00 37.06 Anel [facility] Respiratory rate 2020-06-05 23:36:00 18 /min [facility] Body height 2020-06-05 23:36:00 170.2 cm [facility] Body weight 2020-06-05 23:36:00 109.045 kg [facility] BMI 2020-06-05 23:36:00 37.65 kg/m2 [facility] Heart rate 2020-05-31 02:00:00 99 /min [facility] Oxygen saturation in Arterial blood by Pulse oximetry 2020-05-31 01:45:00 99 /min [facility] Systolic blood pressure 2020-05-31 01:15:00 134 mm[Hg] [facility] Diastolic blood pressure 2020-05-31 01:15:00 70 mm[Hg] [facility] Body temperature 2020-05-31 01:15:00 36.83 Anel [facility] Respiratory rate 2020-05-31 01:15:00 20 /min [facility] Body height 2020-05-31 01:15:00 170.2 cm [facility] Body weight 2020-05-31 01:15:00 108.863 kg [facility] BMI 2020-05-31 01:15:00 37.59 kg/m2 [facility] Systolic blood pressure 2020-05-22 15:40:00 124 mm[Hg] [facility] Diastolic blood pressure 2020-05-22 15:40:00 72 mm[Hg] [facility] Heart rate 2020-05-22 15:40:00 90 /min [facility] Body temperature 2020-05-22 15:40:00 36.89 Anel [facility] Respiratory rate 2020-05-22 15:40:00 16 /min [facility] Body height 2020-05-22 15:40:00 170.2 cm [facility] Body weight 2020-05-22 15:40:00 107.134 kg [facility] BMI 2020-05-22 15:40:00 36.99 kg/m2 [facility] Systolic blood pressure 2020-05-08 14:33:00 127 mm[Hg] [facility] Diastolic blood pressure 2020-05-08 14:33:00 74 mm[Hg] [facility] Heart rate 2020-05-08 14:32:00 99 /min [facility] Body temperature 2020-05-08 14:32:00 36.61 Anel [facility] Respiratory rate 2020-05-08 14:32:00 16 /min [facility] Body height 2020-05-08 14:32:00 170.2 cm [facility] Body weight 2020-05-08 14:32:00 107.106 kg [facility] BMI 2020-05-08 14:32:00 36.98 kg/m2 [facility] Systolic blood pressure 2020-04-25 15:50:00 139 mm[Hg] [facility] Diastolic blood pressure 2020-04-25 15:50:00 83 mm[Hg] [facility] Heart rate 2020-04-25 15:06:00 111 /min [facility] Body temperature 2020-04-25 15:06:00 36.72 Anel [facility] Respiratory rate 2020-04-25 15:06:00 16 /min [facility] Body height 2020-04-25 15:06:00 170.2 cm [facility] Body weight 2020-04-25 15:06:00 106.17 kg [facility] BMI 2020-04-25 15:06:00 36.66 kg/m2 [facility] Systolic blood pressure 2020-04-20 16:25:00 123 mm[Hg] [facility] Diastolic blood pressure 2020-04-20 16:25:00 68 mm[Hg] [facility] Heart rate 2020-04-20 16:25:00 88 /min [facility] Body temperature 2020-04-20 16:25:00 36.61 Anel [facility] Respiratory rate 2020-04-20 16:25:00 16 /min [facility] Body height 2020-04-20 16:25:00 170.2 cm [facility] Body weight 2020-04-20 16:25:00 105.858 kg [facility] BMI 2020-04-20 16:25:00 36.55 kg/m2 [facility] Systolic blood pressure 2020-02-29 19:10:00 134 mm[Hg] [facility] Diastolic blood pressure 2020-02-29 19:10:00 80 mm[Hg] [facility] Heart rate 2020-02-29 19:10:00 100 /min [facility] Body temperature 2020-02-29 19:10:00 36.72 Anel [facility] Respiratory rate 2020-02-29 19:10:00 16 /min [facility] Body height 2020-02-29 19:10:00 170.2 cm [facility] Body weight 2020-02-29 19:10:00 100.018 kg [facility] BMI 2020-02-29 19:10:00 34.54 kg/m2 [facility] Systolic blood pressure 2020-02-01 19:50:00 138 mm[Hg] [facility] Diastolic blood pressure 2020-02-01 19:50:00 73 mm[Hg] [facility] Heart rate 2020-02-01 19:50:00 86 /min [facility] Body temperature 2020-02-01 19:50:00 36.83 Anel [facility] Respiratory rate 2020-02-01 19:50:00 16 /min [facility] Body height 2020-02-01 19:50:00 170.2 cm [facility] Body weight 2020-02-01 19:50:00 98.544 kg [facility] BMI 2020-02-01 19:50:00 34.03 kg/m2 [facility] Systolic blood pressure 2020-01-04 20:39:00 135 mm[Hg] [facility] Diastolic blood pressure 2020-01-04 20:39:00 75 mm[Hg] [facility] Heart rate 2020-01-04 20:38:00 94 /min [facility] Body temperature 2020-01-04 20:38:00 36.5 Anel [facility] Respiratory rate 2020-01-04 20:38:00 16 /min [facility] Body height 2020-01-04 20:38:00 170.2 cm [facility] Body weight 2020-01-04 20:38:00 99.139 kg [facility] BMI 2020-01-04 20:38:00 34.23 kg/m2 [facility] Systolic blood pressure 2019-12-03 20:12:00 128 mm[Hg] [facility] Diastolic blood pressure 2019-12-03 20:12:00 68 mm[Hg] [facility] Heart rate 2019-12-03 19:16:00 90 /min [facility] Body temperature 2019-12-03 19:16:00 36.61 Anel [facility] Respiratory rate 2019-12-03 19:16:00 18 /min [facility] Body height 2019-12-03 19:16:00 170.2 cm [facility] Body weight 2019-12-03 19:16:00 102.059 kg [facility] BMI 2019-12-03 19:16:00 35.24 kg/m2 [facility] Oxygen saturation in Arterial blood by Pulse oximetry 2019-12-03 19:16:00 100 /min [facility] Systolic blood pressure 2019-03-12 20:41:00 132 mm[Hg] [facility] Diastolic blood pressure 2019-03-12 20:41:00 73 mm[Hg] [facility] Heart rate 2019-03-12 20:41:00 95 /min [facility] Body temperature 2019-03-12 20:41:00 36.78 Anel [facility] Respiratory rate 2019-03-12 20:41:00 16 /min [facility] Body height 2019-03-12 20:41:00 170.2 cm [facility] Body weight 2019-03-12 20:41:00 89.841 kg [facility] BMI 2019-03-12 20:41:00 31.02 kg/m2 [facility] Systolic blood pressure 2019-03-12 20:41:00 132 mm[Hg] [facility] Diastolic blood pressure 2019-03-12 20:41:00 73 mm[Hg] [facility] Heart rate 2019-03-12 20:41:00 95 /min [facility] Body temperature 2019-03-12 20:41:00 36.78 Anel [facility] Respiratory rate 2019-03-12 20:41:00 16 /min [facility] Body height 2019-03-12 20:41:00 170.2 cm [facility] Body weight 2019-03-12 20:41:00 89.841 kg [facility] BMI 2019-03-12 20:41:00 31.02 kg/m2 [facility] Systolic blood pressure 2018-11-02 14:26:00 113 mm[Hg] [facility] Diastolic blood pressure 2018-11-02 14:26:00 67 mm[Hg] [facility] Heart rate 2018-11-02 14:26:00 50 /min [facility] Body temperature 2018-11-02 14:26:00 36.61 Anel [facility] Respiratory rate 2018-11-02 14:26:00 16 /min [facility] Body height 2018-11-02 14:26:00 170.2 cm [facility] Body weight 2018-11-02 14:26:00 86.779 kg [facility] BMI 2018-11-02 14:26:00 29.96 kg/m2 [facility] Systolic blood pressure 2018-10-13 13:00:00 125 mm[Hg] [facility] Diastolic blood pressure 2018-10-13 13:00:00 68 mm[Hg] [facility] Heart rate 2018-10-13 13:00:00 69 /min [facility] Body temperature 2018-10-13 13:00:00 36.83 Anel [facility] Respiratory rate 2018-10-13 13:00:00 18 /min [facility] Oxygen saturation in Arterial blood by Pulse oximetry 2018-10-13 13:00:00 98 /min [facility] Body height 2018-10-11 14:30:00 170.2 cm [facility] Body weight 2018-10-11 14:30:00 96.48 kg [facility] BMI 2018-10-11 14:30:00 33.31 kg/m2 [facility] Systolic blood pressure 2018-10-07 16:39:00 129 mm[Hg] [facility] Diastolic blood pressure 2018-10-07 16:39:00 71 mm[Hg] [facility] Heart rate 2018-10-07 16:39:00 86 /min [facility] Body temperature 2018-10-07 16:39:00 36.67 Anel [facility] Respiratory rate 2018-10-07 16:39:00 16 /min [facility] Body height 2018-10-07 16:39:00 170.2 cm [facility] Body weight 2018-10-07 16:39:00 96.673 kg [facility] BMI 2018-10-07 16:39:00 33.38 kg/m2 [facility] Systolic blood pressure 2018-09-30 15:59:00 125 mm[Hg] [facility] Diastolic blood pressure 2018-09-30 15:59:00 70 mm[Hg] [facility] Heart rate 2018-09-30 15:59:00 82 /min [facility] Body temperature 2018-09-30 15:59:00 36.17 Anel [facility] Respiratory rate 2018-09-30 15:59:00 16 /min [facility] Body height 2018-09-30 15:59:00 170.2 cm [facility] Body weight 2018-09-30 15:59:00 97.58 kg [facility] BMI 2018-09-30 15:59:00 33.69 kg/m2 [facility] Systolic blood pressure 2018-09-28 17:05:00 123 mm[Hg] [facility] Diastolic blood pressure 2018-09-28 17:05:00 75 mm[Hg] [facility] Heart rate 2018-09-28 17:05:00 106 /min [facility] Respiratory rate 2018-09-28 17:05:00 18 /min [facility] Body height 2018-09-28 17:05:00 170.2 cm [facility] Body weight 2018-09-28 17:05:00 95.618 kg [facility] BMI 2018-09-28 17:05:00 33.02 kg/m2 [facility] Oxygen saturation in Arterial blood by Pulse oximetry 2018-09-28 17:05:00 98 /min [facility] Systolic blood pressure 2018-09-23 14:12:00 132 mm[Hg] [facility] Diastolic blood pressure 2018-09-23 14:12:00 73 mm[Hg] [facility] Heart rate 2018-09-23 14:12:00 99 /min [facility] Body temperature 2018-09-23 14:12:00 36.39 Anel [facility] Respiratory rate 2018-09-23 14:12:00 16 /min [facility] Body height 2018-09-23 14:12:00 170.2 cm [facility] Body weight 2018-09-23 14:12:00 95.482 kg [facility] BMI 2018-09-23 14:12:00 32.97 kg/m2 [facility] Procedures Procedure Date / Time Performed Performing Clinician Source CBC WITH DIFF 2020-07-16 10:20:00 Evelin Mckeon [facility] CBC WITH DIFF 2020-07-16 10:20:00 Evelin Mckeon [facility] TUBAL LIGATION 2020-07-15 22:29:00 Kate Rome [facility] VENOUS CORD GAS 2020-07-15 14:21:00 Evelyn [facility] VENOUS CORD GAS 2020-07-15 14:21:00 Evelyn [facility] POCT GLUCOSE (AUTOMATED) 2020-07-15 11:56:00 Ome Naomi richardson [facility] POCT GLUCOSE (AUTOMATED) 2020-07-15 11:56:00 [facility] POCT GLUCOSE (AUTOMATED) 2020-07-15 08:10:00 Ome Naomi richardson [facility] POCT GLUCOSE (AUTOMATED) 2020-07-15 08:10:00 [facility] 2020-07-15 06:21:00 Evelyn [facility] PROTEIN CREAT RATIO URINE RANDOM 2020-07-15 06:21:00 Evelyn San [facility] URINALYSIS 2020-07-15 06:21:00 Evelyn [facility] PROTEIN CREAT RATIO URINE RANDOM 2020-07-15 06:21:00 Evelyn San [facility] POCT GLUCOSE (AUTOMATED) 2020-07-15 04:48:00 Ome reNaomi [facility] POCT GLUCOSE (AUTOMATED) 2020-07-15 04:48:00 Ome re Naomi [facility] HB ABO GROUPING 2020-07-15 04:42:00 Evelyn [facility] RHO (D) IMMUNE GLOBULIN 2020-07-15 04:42:00 Daylin Mckeon [facility] HB ABO GROUPING 2020-07-15 04:42:00 Evelyn [facility] RHO (D) IMMUNE GLOBULIN 2020-07-15 04:42:00 Daylin Mckeon [facility] SGOT (ASPARTATE AMINO TRANSFER) 2020-07-15 04:40:00 Evelyn San [facility] CREATININE 2020-07-15 04:40:00 Evelyn [facility] ALANINE AMINO TRANSFERASE(SGPT 2020-07-15 04:40:00 Evelyn San [facility] LACTATE DEHYDROGENASE 2020-07-15 04:40:00 Saurabh San [facility] URIC ACID 2020-07-15 04:40:00 Evelyn [facility] CBC WITH DIFF 2020-07-15 04:40:00 Evelyn San [facility] HEPATITIS B SURFACE ANTIGEN 2020-07-15 04:40:00 [...] [facility] CREATININE 2020-07-15 04:40:00 Evelyn [facility] ALANINE AMINO TRANSFERASE(SGPT 2020-07-15 04:40:00 Evelyn San [facility] LACTATE DEHYDROGENASE 2020-07-15 04:40:00 Saurabh San [facility] URIC ACID 2020-07-15 04:40:00 Evelyn [facility] CBC WITH DIFF 2020-07-15 04:40:00 Evelyn San [facility] HEPATITIS B SURFACE ANTIGEN 2020-07-15 04:40:00 Evelyn San [facility] HIV 1/2 AG-AB WITH REFLEX 2020-07-15 04:40:00 Evelyn San [facility] GALV ONLY - SYPHILIS IGG/IGM 2020-07-15 04:40:00 Evelyn San [facility] COVID-19 (ID NOW RAPID TESTING) 2020-07-15 02:48:00 [facility] COVID-19 (ID NOW RAPID TESTING) 2020-07-15 02:48:00 [facility] LAB ONLY COVID INTERPRETATION 2020-07-15 02:48:00 [facility] NON-STRESS TEST 2020-07-10 21:44:58 Jesús Lugo [facility] POCT URINALYSIS 2020-07-10 19:59:00 Lizette Lugo [facility] HOSPITAL ADMISSION 2020-07-08 05:01:00 Doctor Un assigned, [place] [facility] HOSPITAL ADMISSION 2020-07-08 05:01:00 Doctor Un assigned, [place] [facility] NON-STRESS TEST 2020-07-07 03:07:40 Aster Nava [facility] POCT URINALYSIS 2020-07-06 19:43:00 Lizette Lugo [facility] PATIENT QUESTIONNAIRE 2020-07-06 05:01:00 Doctor Unassigned, [place] [facility] PATIENT QUESTIONNAIRE 2020-07-06 05:01:00 Doctor Unassigned, [place] [facility] 19:17:00 [facility] 2020-06-29 18:38:00 [facility]IVACY PRACT[facility] 2020-06-13 23:05:21 Doctor Unassigned, [place] [facility] CONSENT/REFUSAL FOR DIAGNOSIS AND TREATMENT 2020-06-13 23:05:08 Doctor Unassigned, [place] [facility] CONSENT/REFUSAL FOR DIAGNOSIS AND TREATMENT 2020-06-05 23:13:27 Doctor Unassigned, [place] [facility] ASSIGNMENT OF BENEFITS 2020-05-31 00:57:40 Docto r Unassigned, [place] [facility] CONSENT/REFUSAL FOR DIAGNOSIS AND TREATMENT 2020-05-31 00:57:15 Doctor Unassigned, [place] [facility] POCT URINALYSIS 2020-05-22 15:41:00 Lizette Lugo [facility] PATIENT QUESTIONNAIRE 2020-05-22 05:01:00 Doctor Unassigned, [place] [facility] POCT URINALYSIS 2020-05-08 14:47:00 Lizette Lugo [facility] TDAP VACCINE, >11 YRS, IM 2020-05-08 14:31:42 Lizette Lugo [facility] STERILIZATION CONSENT FORM 2020-05-08 05:01:00 Doctor Unassigned, [place] [facility] POCT URINALYSIS 2020-04-20 16:26:00 Lizette Lugo [facility] POCT URINALYSIS 2020-02-29 19:14:00 Lizette Lugo [facility] CONSENT FOR SERUM MARKER SCREENING 2020-02-29 06:01:00 Doctor Unassigned, [place] [facility] POCT URINALYSIS 2020-02-01 20:26:00 Dayday Graham [facility] FIRST TRIMESTER ULTRASOUND 2020-01-26 19:45:00 Dayday Graham [facility] HB ABO GROUPING 2019-12-03 20:30:00 Paul Arevalo [facility] GLUCOSE 1 HOUR POST PRANDIAL 2019-12-03 20:29:00 Mickey [facility] THYROID STIMULATING HORMONE 2019-12-03 20:29:00 Mickey [facility] COMP. METABOLIC PANEL (43146) 2019-12-03 20:29:00 [facility]FF 2019-12-03 20:29:00 Paul Arevalo [facility] HEPATITIS B SURFACE ANTIGEN 2019-12-03 20:29:00 Mickey [facility] URINE CULTURE 2019-12-03 20:29:00 Paul Arevalo [facility] HIV 1/2 AG-AB WITH REFLEX 2019-12-03 20:29:00 Ryan wasserman [facility] SARS-COV-2 IGG 2019-12-03 20:29:00 [facility] 2019-12-03 00:00:00 [facility] 2019-12-03 00:00:00 Elin Arevalo [facility] CONSENT/REFUSAL FOR DIAGNOSIS AND TREATMENT 2019-11-29 02:29:26 Doctor Unassigned, [place] [facility] CONSENT/REFUSAL FOR DIAGNOSIS AND TREATMENT 2019-03-12 20:07:12 Doctor Unassigned, [place] [facility] ASSIGNMENT OF BENEFITS 2019-03-12 20:06:52 Docto r Unassigned, [place] [facility] CBC WITH DIFFERENTIAL 2018-10-13 09:05:00 Saurabh San [facility] VENOUS CORD GAS 2018-10-12 05:36:00 Agustina Cooney [facility] POCT GLUCOSE (AUTOMATED) 2018-10-12 02:07:00 Coleen Blandon [facility] HEPATITIS B SURFACE ANTIGEN 2018-10-11 16:54:00 Agustina Cooney [facility] TYPE AND SCREEN 2018-10-11 16:54:00 Agustina Cooney [facility] GALV ONLY - SYPHILIS IGG/IGM 2018-10-11 16:54:00 Agustina Cooney [facility] HOSPITAL ADMISSION 2018-10-11 05:01:00 Doctor Un assigned, [place] [facility] POCT URINALYSIS W/O SPECIFIC GRAVITY 2018-10-07 16:43:00 Lizette Lugo [facility] POCT URINALYSIS GLUCOSE & PROTEIN 2018-09-30 16:00:00 Dayday Graham [facility] CONSENT/REFUSAL FOR DIAGNOSIS AND TREATMENT 2018-09-28 05:01:00 Doctor Unassigned, [place] [facility] POCT URINALYSIS W/O SPECIFIC GRAVITY 2018-09-23 14:15:00 Lizette Lugo [facility] Encounters Start Date/Time End Date/Time Encounter Type Admission Type Attending Clinicians Care Facility Care Department Encounter ID Source 2020-12-17 20:44:03 Outpatient P [facility] [id number] [facility] 2020-12-17 15:42:38 Outpatient P [facility] [id number] [facility] 2020-12-17 15:42:20 Outpatient P [facility] [id number] [facility] 2020-12-17 12:42:32 Outpatient P [facility] [id number] [facility] 2020-12-17 12:42:20 Outpatient P [facility] [id number] [facility] 2020-12-06 10:30:00 2020-12-06 10:30:00 Outpatient R LIZETTE LUGO [facility] [id number] [facility] 2020-09-04 00:00:00 2020-09-04 00:00:00 Telephone Lizette Lugo [facility] CHILD [facility] 1..840.114 350.1.13.10 4.2.7.2.686 [id number] [facility] 2020-08-30 08:10:27 2020-08-30 08:55:14 Office Visit Lizette Lugo [facility] CHILD [facility] 1..840.114 350.1.13.10 4.2.7.2.686 [id number] [facility] 2020-08-30 08:15:00 2020-08-30 08:15:00 Outpatient R LIZETTE LUGO [facility] [id number] [facility] 2020-08-07 09:02:18 2020-08-07 09:17:18 Routine Visit Lizette Lugo [facility] CHILD [facility] 1..840.114 350.1.13.10 4.2.7.2.686 [id number] [facility] 2020-08-07 09:15:00 2020-08-07 09:15:00 Outpatient R LIZETTE LUGO [facility] [id number] [facility] 2020-07-20 15:00:00 2020-07-20 15:00:00 Outpatient R [facility] [id number] [facility] 2020-07-18 14:30:00 2020-07-18 14:30:00 Outpatient R [facility] [id number] [facility] 2020-07-14 21:46:00 2020-07-16 14:09:00 Hospital [facility] 1.840.114 350.1.13.10 4.2.7.2.686 [id number] [facility] 2020-07-15 11:50:00 2020-07-15 13:16:00 Surgery Kate Rome [facility] 1..840.114 350.1.13.10 4.2.7.2.686 [id number] [facility] 2020-07-13 14:00:00 2020-07-13 14:00:00 Outpatient R [facility] [id number] [facility] 2020-07-10 14:39:24 2020-07-10 15:42:26 Routine Visit Lizette Lugo [facility] CHILD [facility] 1.840.114 350.1.13.10 4.2.7.2.686 [id number] [facility] 2020-07-10 14:30:00 2020-07-10 14:30:00 Outpatient R [facility] [id number] [facility] 2020-07-06 13:51:59 2020-07-06 15:15:19 Routine Visit Risk, Ang-Rmchp-N p/High Mary Grace Nava [facility] CHILD [facility] 1.2.840.114 350.1.13.10 4.2.7.2.686 [id number] [facility] 2020-07-06 14:00:00 2020-07-06 14:00:00 Outpatient R [facility] [id number] [facility] 2020-07-04 00:00:00 2020-07-04 00:00:00 Telephone Lizette Lugo [facility] CHILD [facility] 1.2.840.114 350.1.13.10 4.2.7.2.686 [id number] [facility] 2020-07-04 00:00:00 2020-07-04 00:00:00 Abstract Lizette Lugo [facility] CHILD [facility] 1.2.840.114 350.1.13.10 4.2.7.2.686 [id number] [facility] 2020-07-03 14:35:38 2020-07-03 15:23:50 Routine Visit Lizette Lugo [facility] CHILD [facility] 1.2.840.114 350.1.13.10 4.2.7.2.686 [id number] [facility] 2020-07-03 14:45:00 2020-07-03 14:45:00 Outpatient R [facility] [id number] [facility] 2020-07-03 14:15:12 2020-07-03 14:34:18 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 CHILD [facility] 1.2.840.114 350.1.13.10 4.2.7.2.686 [id number] [facility] 2020-06-29 14:00:00 2020-06-29 14:00:00 Outpatient R [facility] [id number] [facility] 2020-06-26 13:50:58 2020-06-26 14:52:08 Routine Visit Lizette Lugo [facility] CHILD [facility] 1..840.114 350.1.13.10 4.2.7.2.686 [id number] [facility] 2020-06-26 14:00:00 2020-06-26 14:00:00 Outpatient R [facility] [id number] [facility] 2020-06-22 08:49:16 2020-06-22 09:53:49 Routine Visit Risk, Ang-Rmchp-N p/High Mary Grace Nava [facility] CHILD [facility] 1..840.114 350.1.13.10 4.2.7.2.686 [id number] [facility] 2020-06-22 09:00:00 2020-06-22 09:00:00 Outpatient R [facility] [id number] [facility] 2020-06-22 00:00:00 2020-06-22 00:00:00 Telephone Lizette Lugo [facility] CHILD [facility] 1..840.114 350.1.13.10 4.2.7.2.686 [id number] [facility] 2020-06-20 10:00:00 2020-06-20 10:00:00 Outpatient R TONIO ECHOLS [facility] [id number] [facility] 2020-06-13 18:04:00 2020-06-13 19:07:00 Hospital Encounter Jaclyn Duval [facility] 1.2.840.114 350.1.13.10 4.2.7.2.686 [id number] [facility] 2020-06-08 08:30:00 2020-06-08 08:30:00 Outpatient R [facility] [id number] [facility] 2020-06-05 18:10:00 2020-06-05 20:23:00 Hospital Encounter Jaclyn Duval Radha [facility] 1.2.840.114 350.1.13.10 4.2.7.2.686 [id number] [facility] 2020-06-05 00:00:00 2020-06-05 00:00:00 Telephone Risk, Juan-Rmchp-N p/High [facility]ILD [facility] 1.2.840.114 350.1.13.10 4.2.7.2.686 [id number] [facility] 2020-06-05 00:00:00 2020-06-05 00:00:00 Orders Only Doctor Unassigned, [place] [facility] 1.2.840.114 350.1.13.10 4.2.7.2.686 [id number] [facility] 2020-05-30 19:58:00 2020-05-30 21:25:00 Hospital Encounter Radha Mehta [facility] 1.2.840.114 350.1.13.10 4.2.7.2.686 [id number] [facility] 2020-05-30 00:00:00 2020-05-30 00:00:00 Orders Only Doctor Unassigned, [place] [facility] 1.2840.114 350.1.13.10 4.2.7.2.686 [id number] [facility] 2020-05-23 10:00:00 2020-05-23 10:00:00 Outpatient ARSALAN BLANDON [facility] [id number] [facility] 2020-05-22 10:26:59 2020-05-22 10:58:34 Routine Visit Lizette Lguo [facility] CHILD [facility] 1.840.114 350.1.13.10 4.2.7.2.686 [id number] [facility] 2020-05-22 09:45:00 2020-05-22 09:45:00 Outpatient R LIZETTE LUGO [facility] [id number] [facility] 2020-05-22 00:00:00 2020-05-22 00:00:00 Orders Only Doctor Unassigned, [place] [facility] 1.840.114 350.1.13.10 4.2.7.2.686 [id number] [facility] 2020-05-09 00:00:00 2020-05-09 00:00:00 Patient Outreach Arsalan Blandon [facility] 1.84.114 350.1.13.10 4.2.7.2.686 [id number] [facility] 2020-05-08 08:47:27 2020-05-08 10:56:07 Routine Visit Lizette Lugo [facility] CHILD [facility] 1..114 350.1.13.10 4.2.7.2.686 [id number] [facility] 2020-05-08 09:00:00 2020-05-08 09:00:00 Outpatient DAYDAY ROBLES [facility] [id number] [facility] 2020-05-08 09:00:00 2020-05-08 09:00:00 Outpatient R LIZETTE LUGO [facility] [id number] [facility] 2020-05-08 00:00:00 2020-05-08 00:00:00 Orders Only Doctor Unassigned, [place] [facility] 1.114 350.1.13.10 4.2.7.2.686 [id number] [facility] 2020-05-04 00:00:00 2020-05-04 00:00:00 Telephone Lizette Lugo [facility] CHILD [facility] 1..114 350.1.13.10 4.2.7.2.686 [id number] [facility] 2020-05-03 07:46:58 2020-05-03 08:01:58 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[employer] [facility] CHILD [facility] 1..114 350.1.13.10 4.2.7.2.686 [id number] [facility] 2020-05-03 07:45:00 2020-05-03 07:45:00 Outpatient R DAYDAY GRAHAM [facility] [id number] [facility] 2020-04-26 00:00:00 2020-04-26 00:00:00 Telephone Lizette Lugo [facility] CHILD [facility] ..114 350.1.13.10 4.2.7.2.686 [id number] [facility] 2020-04-25 08:55:43 2020-04-25 09:34:31 Routine Visit Lizette Lugo Emily N [facility] CHILD [facility] 1..114 350.1.13.10 4.2.7.2.686 [id number] [facility] 2020-04-25 09:15:00 2020-04-25 09:15:00 Outpatient R DAYDAY GRAHAM [facility] [id number] [facility] 2020-04-21 00:00:00 2020-04-21 00:00:00 Telephone Dayday Graham [facility] CHILD [facility] 1.84.114 350.1.13.10 4.2.7.2.686 [id number] [facility] 2020-04-20 10:18:39 2020-04-20 10:46:55 Routine Visit Risk, Jefferychp-N p/High Tara Harvey [facility] [employer] [facility] CHILD [facility] 1.840.114 350.1.13.10 4.2.7.2.686 [id number] [facility] 2020-04-20 10:30:00 2020-04-20 10:30:00 Outpatient R [facility] [id number] [facility] 2020-04-15 00:00:00 2020-04-15 00:00:00 Patient Secure Msg Doctor Unassigned, [place] [facility] 1.84.114 350.1.13.10 4.2.7.2.686 [id number] [facility] 2020-04-06 10:00:00 2020-04-06 10:00:00 Outpatient R [facility] [id number] [facility] 2020-03-28 11:00:00 2020-03-28 11:00:00 Outpatient R LIZETTE LUGO [facility] [id number] [facility] 2020-03-09 13:52:50 2020-03-09 15:07:50 Demolition Hammer Operator Visit Ultrasound, Tamiko Russell [facility] [employer] [facility] CHILD [facility] 1.84.114 350.1.13.10 4.2.7.2.686 [id number] [facility] 2020-03-09 14:00:00 2020-03-09 14:00:00 Outpatient P [facility] [id number] [facility] 2020-02-29 12:58:27 2020-02-29 13:26:41 Routine Visit Lizette Lugo [facility] CHILD [facility] 1.2840.114 350.1.13.10 4.2.7.2.686 [id number] [facility] 2020-02-29 13:00:00 2020-02-29 13:00:00 Outpatient R LIZETTE LUGO [facility] [id number] [facility] 2020-02-29 00:00:00 2020-02-29 00:00:00 Orders Only Doctor Unassigned, [place] [facility] 1.2840.114 350.1.13.10 4.2.7.2.686 [id number] [facility] 2020-02-22 00:00:00 2020-02-22 00:00:00 Patient Secure Msg Doctor Unassigned, [place] [facility] [employer] [facility] CHILD [facility] 1.2840.114 350.1.13.10 4.2.7.2.686 [id number] [facility] 2020-02-01 13:43:05 2020-02-01 14:05:32 Routine Visit Dayday Graham [facility] CHILD [facility] 1.2840.114 350.1.13.10 4.2.7.2.686 [id number] [facility] 2020-02-01 14:00:00 2020-02-01 14:00:00 Outpatient R DAYDAY GRAHAM [facility] [id number] [facility] 2020-01-26 13:20:33 2020-01-26 13:52:11 Demolition Hammer Operator Visit Ultrasound, Tamiko Russell [facility] CHILD [facility] 1.2.840.114 350.1.13.10 4.2.7.2.686 [id number] [facility] 2020-01-26 13:30:00 2020-01-26 13:30:00 Outpatient P [facility] [id number] [facility] 2020-01-21 00:00:00 2020-01-21 00:00:00 Patient Secure Msg Doctor Unassigned, [place] [facility] [facility] CHILD [facility] 1.2.840.114 350.1.13.10 4.2.7.2.686 [id number] [facility] 2020-01-21 00:00:00 2020-01-21 00:00:00 Telephone Dayday Graham [facility] [employer] [facility] CHILD [facility] 1.2.840.114 350.1.13.10 4.2.7.2.686 [id number] [facility] 2020-01-17 00:00:00 2020-01-17 00:00:00 Patient Secure Msg Doctor Unassigned, [place] [facility] [facility] CHILD [facility] 1.2.840.114 350.1.13.10 4.2.7.2.686 [id number] [facility] 2020-01-04 14:10:07 2020-01-04 14:25:07 Routine Visit Dayday Graham [facility] [employer] [facility] CHILD [facility] 1.2.840.114 350.1.13.10 4.2.7.2.686 [id number] [facility] 2020-01-04 14:15:00 2020-01-04 14:15:00 Outpatient R DAYDAY GRAHAM [facility] [id number] [facility] 2019-12-08 00:00:00 2019-12-08 00:00:00 Patient Secure Msg Doctor Unassigned, [place] [facility] 1.2840.114 350.1.13.10 4.2.7.2.686 [id number] [facility] 2019-12-08 00:00:00 2019-12-08 00:00:00 Patient Secure Msg Doctor Unassigned, [place] [facility] 1.2840.114 350.1.13.10 4.2.7.2.686 [id number] [facility] 2019-12-03 13:57:53 2019-12-03 15:53:08 Initial Visit Mickey Paul [facility] 1.84.114 350.1.13.10 4.2.7.2.686 [id number] [facility] 2019-12-03 14:00:00 2019-12-03 14:00:00 Outpatient PAUL JIMENEZ [facility] [id number] [facility] 2019-11-28 00:00:00 2019-11-28 00:00:00 Orders Only Doctor Unassigned, [place] [facility] 1.114 350.1.13.10 4.2.7.2.686 [id number] [facility] 2019-06-05 12:52:00 2019-06-07 06:25:28 Inpatient [facility] [id number] 94 [facility] 2019-05-12 09:15:00 2019-05-12 09:15:00 Outpatient theresa TAVERAS [id number] [facility] 2019-03-12 14:09:29 2019-03-12 15:05:26 Office Visit Lizette Lugo [facility] [id number] 350.1.13.10 4.2.7.2.686 [id number] 2019-03-12 14:09:29 2019-03-12 15:05:26 Office Visit Lizette Lugo [facility] [address] [facility] 1.2.840.114 350.1.13.10 4.2.7.2.686 [id number] [facility] 2019-03-12 00:00:00 2019-03-12 00:00:00 Orders Only Doctor Unassigned, [place] [facility] 1.2.840.114 350.1.13.10 4.2.7.2.686 [id number] [facility] 2019-03-11 00:00:00 2019-03-11 00:00:00 Telephone Lizette Lugo [facility]ILD [facility] 1.2.840.114 350.1.13.10 4.2.7.2.686 [id number] 107 [id number] [facility] 2018-11-02 09:19:45 2018-11-02 10:10:06 Routine Visit Lizette Lugo [facility]ILD [facility] 1.2.840.114 350.1.13.10 4.2.7.2.686 [id number] [facility] 2018-10-11 09:10:00 2018-10-13 13:48:00 Hospital Encounter Altagracia Blandon [facility] 1.2.840.114 350.1.13.10 4.2.7.2.686 [id number] [facility] 2018-10-11 00:00:00 2018-10-11 00:00:00 Orders Only Doctor Unassigned, [place] [facility] 1.2.840.114 350.1.13.10 4.2.7.2.686 [id number] [facility] 2018-10-07 10:46:28 2018-10-07 11:49:44 Routine Visit Lizette Lugo Emily N [facility] [place]ILD [facility] 1.2.840.114 350.1.13.10 4.2.7.2.686 [id number] [facility] 2018-09-30 10:52:31 2018-09-30 11:16:08 Routine Visit Daydya Graham [facility] [place]ILD [facility] 1.2.840.114 350.1.13.10 4.2.7.2.686 [id number] [facility] 2018-09-28 11:23:00 2018-09-28 13:27:00 Hospital Encounter Yas Hilario [facility] 1.2.840.114 350.1.13.10 4.2.7.2.686 [id number] [facility] 2018-09-28 00:00:00 2018-09-28 00:00:00 Nurse Triage Virginie Sutton [facility] 1.2.840.114 350.1.13.10 4.2.7.2.686 [id number] [facility] 2018-09-28 00:00:00 2018-09-28 00:00:00 Patient Secure Msg Lizette Lugo [facility]ILD [facility] 1.2.840.114 350.1.13.10 4.2.7.2.686 [id number] [facility] 2018-09-24 00:00:00 2018-09-24 00:00:00 Telephone Lizette Lugo [facility] [place] [facility]ILD [facility] 1.2.840.114 350.1.13.10 4.2.7.2.686 [id number] [facility] 2018-09-24 00:00:00 2018-09-24 00:00:00 Patient Secure g Lizette Lugo [facility] [place] [facility]ILD [facility] 1.2.840.114 350.1.13.10 4.2.7.2.686 [id number] [facility] 2018-09-23 08:57:20 2018-09-23 10:50:36 Routine Visit Lizette Lguo [facility]ILD [facility] 1.2.840.114 350.1.13.10 4.2.7.2.686 [id number] [facility] 2018-08-14 00:00:00 2018-08-14 00:00:00 Patient Secure Doctor Unassigned, [place] [facility] 1.2.840.114 350.1.13.10 4.2.7.2.686 [id number] [facility] Results Test Description Test Time Test Comments [...] COVID-19 testing the patient has had at [facility], including molecular NAAT testing (more commonly known as PCR testing and Rapid ID Now testing) and antibody testing. It does not take into account any testing that a patient has had outside of the [facility] medical record. [facility] LABORATORY SERVICESCOVID PllwtipKAOV-FaN-9 Rapid ID NOW (no units) ? ? Date ? Value ? 07/14/2020 ? Not Detected ? ? ? 07/08/2020 ? Not Detected ? ? ? 06/13/2020 ? Not Detected ? CoV-2 IgG (no units) ? ? Date ? Value ? 07/03/2020 ? Positive (A) ? ? ? 12/03/2019 ? Negative ? ? ? [facility] with Hpccrfchnycf6237-25-53 10:28:11* Test Item Value Reference Range Interpretation [...] g/dL 31.6-35.1 L RDW-SD (test code = 05549-3) 48.5 fL 39.0-49.9 RDW-CV (test code = 788-0) 14.8 % 12.0-15.5 PLT (test code = 777-3) See_Comment [Automated message] The system which generated this result transmitted reference range: 166 - 358 10*3/?L. The reference range was not used to interpret this result as normal/abnormal. MPV (test code = 70154-5) 9.5 fL 9.5-12.9 NRBC/100 WBC (test code = 5889769597) See_Comment [Automated message] The system which generated this result transmitted reference range: 0.0 - 10.0 /100 WBCs. The reference range was not used to interpret this result as normal/abnormal. NRBC x10^3 (test code = 5237168383) <0.01 See_Comment [Automated message] The system which generated this result transmitted reference range: 10*3/?L. The reference range was not used to interpret this result as normal/abnormal. GRAN MAT (NEUT) % (test code = 770-8) 77.0 % IMM GRAN % (test code = 4896918105) 0.80 % LYMPH % (test code = 736-9) 12.4 % MONO % (test code = 5905-5) 8.7 % EOS % (test code = 713-8) 0.9 % BASO % (test code = 706-2) 0.2 % GRAN MAT x10^3(ANC) (test code = 6187101767) 11.03 10*3/uL 1.88-7.09 H IMM GRAN x10^3 (test code = 4156528625) 0.12 10*3/uL 0.00-0.06 H LYMPH x10^3 (test code = 731-0) 1.78 10*3/uL 1.32-3.29 MONO x10^3 (test code = 742-7) 1.25 10*3/uL 0.33-0.92 H EOS x10^3 (test code = 711-2) 0.13 10*3/uL 0.03-0.39 BASO x10^3 (test code = 704-7) 0.03 10*3/uL 0.01-0.07 Lab Interpretation (test code = 74008-3) Abnormal [facility] (D) IMMUNE [id number] 01:57:12* Test Item Value Reference Range Interpretation Comme nts RHIG CANDIDATE? (test code = 5055) No- see comment Patient is not a candidate for RhIg- Patient is Rh Positive.Performed at [facility] Laboratory Services - [facility] Blood [address] Free: [phone] No. [id number] [facility] (D) IMMUNE [id number] 01:57:12* Test Item Value Reference Range Interpretation Comme nts RHIG CANDIDATE? (test code = 5055) No- see comment Patient is not a candidate for RhIg- Patient is Rh Positive.Performed at [facility] Laboratory Services - [facility] Blood [place] [address]Toll Free: [phone] No. [id number] [facility] - [place] IGG/[id number] 16:55:55* Test Item Value Reference Range Interpretation Comme nts Syphilis IgG/IgM (test code = 04456-8) Non-reactive Non-reactive KARLA (test code = KARLA) Non-reactive - No serologic evidence of T. pallidum infection. Cannot exclude incubating or early syphilis. Submit a second specimen in 2-4 weeks if syphilis is clinically suspected. Equivocal - Further testing to follow. Reactive - Further testing to follow. Lab Interpretation (test code = 42694-0) Normal [facility] - [place] IGG/[id number] 16:55:55* Test Item Value Reference Range Interpretation Comme [facility] Syphilis IgG/IgM (test code = 11285-5) Non-reactive Non-reactive KARLA (test code = KARLA) Non-reactive - No serologic evidence of T. pallidum infection. Cannot exclude incubating or early syphilis. Submit a second specimen in 2-4 weeks if syphilis is clinically suspected. Equivocal - Further testing to follow. Reactive - Further testing to follow. Lab Interpretation (test code = 08505-5) Normal [facility] CORD [id number] 14:33:45* Test Item Value Reference Range Interpretation Comme [facility] VENOUS BASE EXCESS, CORD (test code = 9393078207) mEq/L VENOUS PH, CORD (test code = 4481793917) 7.25-7.45 VENOUS PC02, CORD (test code = 8800593757) See_Comment [Automated messa ge] The system which generated this result transmitted reference range: 27 - 49 mmHg. The reference range was not used to interpret this result as normal/abnormal. VENOUS PO2, CORD (test code = 8046995728) See_Comment [Automated me ssage] The system which generated this result transmitted reference range: 17 - 41 mmHg. The reference range was not used to interpret this result as normal/abnormal. VENOUS BICARBONATE, CORD (test code = 1981454119) See_Comment [Automated messa ge] The system which generated this result transmitted reference range: 12 - 29 mEq/L. The reference range was not used to interpret this result as normal/abnormal. [facility] CORD [id number] 14:33:45* Test Item Value Reference Range Interpretation Comme [facility] VENOUS BASE EXCESS, CORD (test code = 5950335455) mEq/L VENOUS PH, CORD (test code = 5953710656) 7.25-7.45 VENOUS PC02, CORD (test code = 3744957462) See_Comment [Automated messa ge] The system which generated this result transmitted reference range: 27 - 49 mmHg. The reference range was not used to interpret this result as normal/abnormal. VENOUS PO2, CORD (test code = 2021240138) See_Comment [Automated me ssage] The system which generated this result transmitted reference range: 17 - 41 mmHg. The reference range was not used to interpret this result as normal/abnormal. VENOUS BICARBONATE, CORD (test code = 4353768290) See_Comment [Automated messa ge] The system which generated this result transmitted reference range: 12 - 29 mEq/L. The reference range was not used to interpret this result as normal/abnormal. [facility] CORD [id number] 14:30:44* Test Item Value Reference Range Interpretation Comme nts BASE EXCESS, CORD (test code = 5926587739) mEq/L AC PH, CORD (BEAKER) (test code = 9554743479) 7.18-7.38 PC02, CORD (test code = 2772292077) See_Comment [Automated messa ge] The system which generated this result transmitted reference range: 32 - 66 mmHg. The reference range was not used to interpret this result as normal/abnormal. PO2, CORD (test code = 3510622728) See_Comment [Automated messa ge] The system which generated this result transmitted reference range: 10 - 30 mmHg. The reference range was not used to interpret this result as normal/abnormal. BICARBONATE, CORD (test code = 1424453157) See_Comment [Automated messa ge] The system which generated this result transmitted reference range: 17 - 27 mEq/L. The reference range was not used to interpret this result as normal/abnormal. [facility] CORD [id number] 14:30:44* Test Item Value Reference Range Interpretation Comme nts BASE EXCESS, CORD (test code = 9186477705) mEq/L AC PH, CORD (BEAKER) (test code = 2058082104) 7.18-7.38 PC02, CORD (test code = 9470174206) See_Comment [Automated messa ge] The system which generated this result transmitted reference range: 32 - 66 mmHg. The reference range was not used to interpret this result as normal/abnormal. PO2, CORD (test code = 5116615325) See_Comment [Automated messa ge] The system which generated this result transmitted reference range: 10 - 30 mmHg. The reference range was not used to interpret this result as normal/abnormal. BICARBONATE, CORD (test code = 4170221601) See_Comment [Automated messa ge] The system which generated this result transmitted reference range: 17 - 27 mEq/L. The reference range was not used to interpret this result as normal/abnormal. [facility] GLUCOSE (AUTOMATED)2020-07-15 11:59:25* Test Item Value Reference Range Interpretation Comme nts POCT GLU (test code = 4796482376) 122 mg/dL 70-110 H Lab Interpretation (test cod e = 17545-5) Abnormal [facility] GLUCOSE (AUTOMATED)2020-07-15 11:59:25* Test Item Value Reference Range Interpretation Comme nts POCT GLU (test code = 6884072113) 122 mg/dL 70-110 H Lab Interpretation (test cod e = 98817-1) Abnormal [facility] GLUCOSE (AUTOMATED)2020-07-15 08:15:23* Test Item Value Reference Range Interpretation Comme nts POCT GLU (test code = 9680187371) 122 mg/dL 70-110 H Lab Interpretation (test cod e = 84769-5) Abnormal [facility] GLUCOSE (AUTOMATED)2020-07-15 08:15:23* Test Item Value Reference Range Interpretation Comme nts POCT GLU (test code = 8173425743) 122 mg/dL 70-110 H Lab Interpretation (test cod e = 79604-9) Abnormal [facility]inalysis2021-[facility]-29 06:40:28* Test Item Value Reference Range Interpretation Comme nts APPEARANCE (test code = 6415373275) Clear Clear COLOR (test code = 0926802213) Yellow Yellow PH (test code = 3795224886) 4.8-8.0 SP GRAVITY (test code = 7572703967) 1.003-1.030 GLU U QUAL (test code = 2236033819) Normal Normal BLOOD (test code = 2776288546) Negative Negative KETONES (test code = 4023260107) 5 mg/dL Negative A PROTEIN (test code = 2887-8) Negative Negative UROBILIN (test code = 9418859164) Normal Normal BILIRUBIN (test code = 4158344366) Negative Negative NITRITE (test code = 3974578871) Negative Negative LEUK RAJ (test code = 9794131666) Negative Negative RBC/HPF (test code = 8691353130) See_Comment H [Automated messa ge] The system which generated this result transmitted reference range: 0 - 3 HPF. The reference range was not used to interpret this result as normal/abnormal. WBC/HPF (test code = 8934495633) See_Comment [Automated messa ge] The system which generated this result transmitted reference range: 0 - 5 HPF. The reference range was not used to interpret this result as normal/abnormal. BACTERIA (test code = 6235275384) Few Negative A MUCOUS (test code = 8675330055) Moderate Negative LPF A SQ EPITH (test code = 4487693939) See_Comment H [Automated messa ge] The system which generated this result transmitted reference range: <=2 HPF. The reference range was not used to interpret this result as normal/abnormal. Lab Interpretation (test code = 08470-7) Abnormal [facility]inalysis2021-05-29 06:40:28* Test Item Value Reference Range Interpretation Comme nts APPEARANCE (test code = 2698176604) Clear Clear COLOR (test code = 4461068945) Yellow Yellow PH (test code = 8246986969) 4.8-8.0 SP GRAVITY (test code = 7910806605) 1.003-1.030 GLU U QUAL (test code = 2434341361) Normal Normal BLOOD (test code = 6686890136) Negative Negative KETONES (test code = 8723664757) 5 mg/dL Negative A PROTEIN (test code = 2887-8) Negative Negative UROBILIN (test code = 6309748751) Normal Normal BILIRUBIN (test code = 9368309183) Negative Negative NITRITE (test code = 9986920721) Negative Negative LEUK RAJ (test code = 0345156069) Negative Negative RBC/HPF (test code = 1848325959) See_Comment H [Automated messa ge] The system which generated this result transmitted reference range: 0 - 3 HPF. The reference range was not used to interpret this result as normal/abnormal. WBC/HPF (test code = 2654506060) See_Comment [Automated messa ge] The system which generated this result transmitted reference range: 0 - 5 HPF. The reference range was not used to interpret this result as normal/abnormal. BACTERIA (test code = 3848962005) Few Negative A MUCOUS (test code = 0268626549) Moderate Negative LPF A SQ EPITH (test code = 3078251387) See_Comment H [Automated messa ge] The system which generated this result transmitted reference range: <=2 HPF. The reference range was not used to interpret this result as normal/abnormal. Lab Interpretation (test code = 43536-3) Abnormal [facility] Club[facility] CREAT Ratio Urine Jlqfsp0758-78-85 06:39:32* Test Item Value Reference Range Interpretation Comme nts T. PROT U (test code = 2888-6) 13 mg/dL CREAT U (test code = 1065303655) 156.2 mg/dL Protein/Creatinine Ratio Uri ne (test code = 7418108000) 0.0-2.0 [facility] CREAT Ratio Urine Eudrbz4309-87-21 06:39:32* Test Item Value Reference Range Interpretation Comme nts T. PROT U (test code = 2888-6) 13 mg/dL CREAT U (test code = 2284662174) 156.2 mg/dL Protein/Creatinine Ratio Uri ne (test code = 3588544320) 0.0-2.0 [facility] ClubHIV 1/2 AG-AB WITH ONPAVX6772-24-36 06:12:14* Test Item Value Reference Range Interpretation Comme nts HIV Semi-quantitative (test code = 61030-8) Negative Negative KARLA (test code = KARLA) Non-reactive for HIV-1 antigen and HIV-1/HIV-2 antibodies. ?No laboratory evidence of HIV infection. ?Repeat in 2-4 weeks if acute HIV infection is suspected. [facility] ClubHIV [facility]/2 AG-AB WITH [id number] 06:12:14* Test Item Value Reference Range Interpretation Comme nts HIV Semi-quantitative (test code = 99187-6) Negative Negative KARLA (test code = KARLA) Non-reactive for HIV-1 antigen and HIV-1/HIV-2 antibodies. ?No laboratory evidence of HIV infection. ?Repeat in 2-4 weeks if acute HIV infection is suspected. [facility] ClubHEPATITIS B SURFACE TTAUKXC6268-18-87 06:03:09 * Test Item Value Reference Range Interpretation Comme nts HBsAg Semi-Quantitative (cristian t code = 5195-3) Negative Negative [facility] ClubHEPATITIS B SURFACE OQHWLIZ9689-58-89 06:03:09 * Test Item Value Reference Range Interpretation Comme nts HBsAg Semi-Quantitative (cristian t code = 5195-3) Negative Negative [facility] ClubUric Acid Gxfxk8270-92-57 05:31:11* Test Item Value Reference Range Interpretation Comme nts URIC ACID (test code = 3481981562) 4.7 mg/dL 2.9-6.0 Lab Interpretation (test cod e = 45410-7) Normal [facility] ClubSerum Orfyzmpcvk7482-92-00 05:31:11* Test Item Value Reference Range Interpretation Comme nts CREATININE (test code = 0778863789) 0.49 mg/dL 0.50-1.04 L eGFR (test code = 6382508737) mL/min/1.73m2 KARLA (test code = KARLA) Association [...] imaging tests). Lab Interpretation (test code = 94342-7) Abnormal [facility] ClubSGOT (Asparate Amino Transfer)2020-07-15 05:31:11* Test Item Value Reference Range Interpretation Comme nts AST(SGOT) (test code = 4623531459) 19 U/L 13-40 Lab Interpretation (test cod e = 97166-8) Normal [facility] ClubUric Acid Nxowh3625-85-26 05:31:11* Test Item Value Reference Range Interpretation Comme nts URIC ACID (test code = 6444216056) 4.7 mg/dL 2.9-6.0 Lab Interpretation (test cod e = 31068-8) Normal [facility] ClubSerum Srmdmhdowk1863-03-13 05:31:11* Test Item Value Reference Range Interpretation Comme nts CREATININE (test code = 9616044577) 0.49 mg/dL 0.50-1.04 L eGFR (test code = 1368938936) mL/min/1.73m2 KARLA (test code = KARLA) Association [...] imaging tests). Lab Interpretation (test code = 24518-4) Abnormal [facility] Club[facility] (Asparate Amino Transfer)2020-07-15 05:31:11* Test Item Value Reference Range Interpretation Comme nts AST(SGOT) (test code = 9905004005) 19 U/L 13-40 Lab Interpretation (test cod e = 38009-8) Normal [facility] ClubAlanine Amino Transferase (SGPT)2020-07-15 05:31:10* Test Item Value Reference Range Interpretation Comme nts ALTv (test code = 1742-6) 12 U/L 5-35 Lab Interpretation (test cod e = 56918-7) Normal [facility] ClubAlanine Amino Transferase (SGPT)2020-07-15 05:31:10* Test Item Value Reference Range Interpretation Comme nts ALTv (test code = 1742-6) 12 U/L 5-35 Lab Interpretation (test cod e = 99375-9) Normal [facility] ClubLactate Kkoqckgdokiyu1922-47-17 05:30:50* Test Item Value Reference Range Interpretation Comme nts LDH (test code = 0025912670) 459 U/L 300-600 Lab Interpretation (test cod e = 01244-6) Normal [facility] ClubLactate Jagasbvxnxbls5759-76-71 05:30:50* Test Item Value Reference Range Interpretation Comme nts LDH (test code = 0284216343) 459 U/L 300-600 Lab Interpretation (test cod e = 41104-6) Normal [facility] ClubType and Screen - ONCE EXCJ4301-60-32 05:21:09 * Test Item Value Reference Range Interpretation Comme nts ABO & RH (test code = 20) B POSITIVE Performed at [facility] Laboratory Services - [facility] Blood [address] [address]Pp[address] Free: [phone] No. [id number] IAT (test code = 1185) Negative Performed at [facility] Laboratory Services - [facility] Blood [address] [address]Ollf Free: [phone] No. [id number] [facility] ClubType and Screen - ONCE [id number] 05:21:09 * Test Item Value Reference Range Interpretation Comme nts ABO & RH (test code = 20) B POSITIVE Performed at [facility] Laboratory Services - [facility] Blood [address] [address]Ymjs Free: [phone] No. [id number] IAT (test code = 1185) Negative Performed at [facility] Laboratory Services - [facility] Blood [place] [id number] Free: [phone] No. [id number] [facility] ClubCBC with Tkmbxeeryepy7453-15-42 05:01:18* Test Item Value Reference Range Interpretation [...] 31.7 g/dL 31.6-35.1 RDW-SD (test code = 86781-9) 48.0 fL 39.0-49.9 RDW-CV (test code = 788-0) 14.8 % 12.0-15.5 PLT (test code = 777-3) See_Comment [Automated message] The system which generated this result transmitted reference range: 166 - 358 10*3/?L. The reference range was not used to interpret this result as normal/abnormal. MPV (test code = 11007-0) 9.6 fL 9.5-12.9 NRBC/100 WBC (test code = 5737054956) See_Comment [Automated message] The system which generated this result transmitted reference range: 0.0 - 10.0 /100 WBCs. The reference range was not used to interpret this result as normal/abnormal. NRBC x10^3 (test code = 2573785110) <0.01 See_Comment [Automated message] The system which generated this result transmitted reference range: 10*3/?L. The reference range was not used to interpret this result as normal/abnormal. GRAN MAT (NEUT) % (test code = 770-8) 74.5 % IMM GRAN % (test code = 2234677748) 1.60 % LYMPH % (test code = 736-9) 15.7 % MONO % (test code = 5905-5) 7.1 % EOS % (test code = 713-8) 0.9 % BASO % (test code = 706-2) 0.2 % GRAN MAT x10^3(ANC) (test code = 3889501601) 11.97 10*3/uL 1.88-7.09 H IMM GRAN x10^3 (test code = 4480625217) 0.25 10*3/uL 0.00-0.06 H LYMPH x10^3 (test code = 731-0) 2.52 10*3/uL 1.32-3.29 MONO x10^3 (test code = 742-7) 1.14 10*3/uL 0.33-0.92 H EOS x10^3 (test code = 711-2) 0.14 10*3/uL 0.03-0.39 BASO x10^3 (test code = 704-7) 0.04 10*3/uL 0.01-0.07 Lab Interpretation (test code =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
[2024-02-19] MEDS ORDERED: KETOROLAC 30 MG/ML INJ ONE (11:15)
[2024-02-19] MEDS ORDERED: ONDANSETRON 4 MG (ODT) TAB ONE (11:15)
[2024-02-19] MEDS ORDERED: BENZONATATE 100 MG CAP PO ONE (11:16)
--- NOTE | 2024-02-19 11:42 | RAD REPORT ---
Procedure: Chest Single View HISTORY: Cough COMPARISON: 2022 FINDINGS: The lungs appear clear of acute infiltrate. No significant pleural effusion noted. The heart is normal size. IMPRESSION: No acute abnormality is displayed.
[2024-02-19 11:48] LABS: SARS-CoV-2 Antigen CONTROL BLUE LINE VIS/BG OK; SARS-CoV-2 Antigen Rapid Res Negative (Negative)
--- NOTE | 2024-02-19 11:55 | EDPHYS ---
Physician Documentation [facility] Name: Gail Juárez Age: 28 yrs Sex: Female : 1995 Arrival Date: 02/19/2024 Time: 10:44 Bed 4 Private MD: ED Physician Jeyson Mcfarland HPI: 02/18 11:09 This 28 yrs old Female presents to ER via Ambulatory with complaints of Cough.ec2 11:09 Patient arrives today for evaluation of upper respiratory symptoms. Patient reports ec2 cough and cold symptoms. Reports some bodyaches and feeling unwell. No vomiting, no diarrhea. No fevers or chills.. 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 - Infectious Disease History:: Denies. - Social history:: Smoking status: Patient denies any tobacco usage or history of. ROS: 11:09 Constitutional: as per hpi ec2 Exam: 11:09 Constitutional: GEN: NAD Head: atraumatic Eyes: EOMI Ears: External ears are ec2 normal. CV: regular rate LUNGS: no respiratory distress, no wheezes or rales or rhonchi ABD: non-distended SKIN: no evidence of rashes MSK: no evidence of trauma Vital Signs: 10:56 BP 133 / 71; Pulse 97; Resp 19; Temp 98.6; Pulse Ox 98% on R/A; Weight 111.13 kg; iw Height 5 ft. 7 in. ; Pain 5/10; 10:56 Body Mass Index 38.37 (111.13 kg, 170.18 cm) iw 10:56 Pain Scale: Adult iw MDM: 10:47 Medical Screening Exam initiated ec2 11:09 Data reviewed: vital signs, nurses notes. ED course: Patient arrives today for URI ec2 symptoms. Examination reveals well-appearing nontoxic hemodynamically stable individuals otherwise in no acute distress with a reassuring cardiopulmonary examination. Will obtain viral swab, chest x-ray. Suspect viral infection. Additionally considered other processes such as urinary tract infection, pneumonia.. 11:45 ED course: Chest x-ray independently reviewed and interpreted by me, shows no acute ec2 intrathoracic process.. 11:52 ED course: Viral swabs negative.. ec2 11:54 ED course: On reassessment patient is well-appearing and in no acute distress. Will ec2 discharge home have the patient follow-up with PCP. Return precautions given.. 02/18 11:09 Order name: Influenza Screen (a \T\ B); Complete Time: 11:51 ec2 02/18 11:09 Order name: SARS RAPID; Complete Time: 11:51 ec2 02/18 11:09 Order name: CXR XRAY; Complete Time: 11:44 ec2 Administered Medications: 11:28 Not Given (Patient Refused): [id number] mg IM once ap3 11:28 Drug: Ondansetron Oral Disintegrating Tablet Oral Disintegrating Tablet 8 mg PO once; ap3 may repeat once in 8-12 hours Route: PO; 12:13 Follow up: Response: No adverse reaction ap3 11:28 Drug: Tessalon Perle PO 200 mg PO once Route: PO; ap3 12:13 Follow up: Response: No adverse reaction ap3 Disposition Summary: 02/19/24 11:55 Discharge Ordered Notes: Location: Home ec2 Condition: Stable ec2 Diagnosis - Viral infection, unspecified ec2 Followup: ec2 - With: Private Physician - When: - Reason: Re-evaluation by your physician Discharge Instructions: - Discharge Summary Sheet ec2 - Viral Illness, Adult ec2 Forms: - Medication Reconciliation Form ec2 - Antibiotic Education ec2 - Prescription Opioid Use ec2 - Patient Portal Instructions ec2 - Leadership Thank You Letter ec2 Prescriptions: - Compazine 10 mg Oral Tablet - take 1 tablet ORAL route every 8 hours As needed; 20 tablet; Refills: 0, ec2 Product Selection Permitted - Tessalon Perles 100 mg Oral Capsule - take 1 capsule ORAL route every 8 hours As needed; 15 capsule; Refills: 0, ec2 Product Selection Permitted Signatures: Dispatcher [employer] Maria Antonia Sharma RN RN iw Karen Potter RN RN ap3 Jeyson Mcfarland MD MD ec2
--- NOTE | 2024-02-19 11:55 | ER ---
Nurse's Notes [facility] Name: Gail Juárez Age: 28 yrs Sex: Female : 1995 Arrival Date: 02/19/2024 Time: 10:44 Bed 4 Private MD: Diagnosis: Viral infection, unspecified Presentation: 02/18 10:56 Chief complaint: Patient states: has been sick for one week, has a cough, head iw pressure, SOB and chest pains , no appetite. Coronavirus screen: Client presents with at least one sign or symptom that may indicate coronavirus-19. Ebola Screen: No symptoms or risks identified at this time. Initial Sepsis Screen: Does the patient meet any 2 criteria? No. Patient's initial sepsis screen is negative. Does the patient have a suspected source of infection? No. Patient's initial sepsis screen is negative. Risk Assessment: Do you want to hurt yourself or someone else? Patient reports no desire to harm self or others. Onset of symptoms was February 11, 2024. 10:56 Method Of Arrival: Ambulatory iw 10:56 Acuity: CHAYO 3 iw Triage Assessment: 12:11 General: Appears in no apparent distress. Behavior is calm, cooperative, appropriate ap3 for age. Pain: Complains of pain in generalized body aches. Neuro: Level of Consciousness is awake, alert, obeys commands, Oriented to person, place, time, situation. Cardiovascular: Patient's skin is warm and dry. 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 - Infectious Disease History:: Denies. - Social history:: Smoking status: Patient denies any tobacco usage or history of. Screenin:11 [facility] ED Fall Risk Assessment (Adult) History of falling in the last 3 months, ap3 including since admission No falls in past 3 months (0 pts) Confusion or Disorientation No (0 pts) Intoxicated or Sedated No (0 pts) Impaired Gait No (0 pts) Mobility Assist Device Used No (0 pt) Altered Elimination No (0 pt) Score/Fall Risk Level 0 - 2 = Low Risk Oriented to surroundings, Maintained a safe environment, Educated pt \T\ family on fall prevention, incl call for assistance when getting out of bed, Assessed \T\ reinforced patient's understanding of fall precautions, Hourly rounding (assess needs \T\ fall precautionary measures) done, Used ambulatory aids as needed (educated on \T\ assisted with), Used gait belt as appropriate. Abuse screen: Denies threats or abuse. Nutritional screening: No deficits noted. Tuberculosis screening: No symptoms or risk factors identified. Assessment: 12:13 Pain: Pain does not radiate. Pain began gradually. ap3 Vital Signs: 10:56 BP 133 / 71; Pulse 97; Resp 19; Temp 98.6; Pulse Ox 98% on R/A; Weight 111.13 kg; iw Height 5 ft. 7 in. ; Pain 5/10; 10:56 Body Mass Index 38.37 (111.13 kg, 170.18 cm) iw 10:56 Pain Scale: Adult iw ED Course: 10:46 Patient arrived in ED. mr 10:47 Jeyson Mcfarland MD is Attending Physician. ec2 10:58 Triage completed. iw 10:58 Arm band placed on. iw 11:03 Sen Morton, SUNDAR is Primary Nurse. bp 11:28 SARS RAPID Sent. ap3 11:28 Influenza Screen (a \T\ B) Sent. ap3 11:39 CXR XRAY In Process Unspecified. EDMS 12:12 Patient has correct armband on for positive identification. Provided Education on: ap3 medications prior to administration. Pulse ox on. NIBP on. 12:12 No provider procedures requiring assistance completed. Patient did not have IV access ap3 during this emergency room visit. Patient maintains SpO2 saturation greater than 95% on room air. Administered Medications: 11:28 Not Given (Patient Refused): [id number] mg IM once ap3 11:28 Drug: Ondansetron Oral Disintegrating Tablet Oral Disintegrating Tablet 8 mg PO once; ap3 may repeat once in 8-12 hours Route: PO; 12:13 Follow up: Response: No adverse reaction ap3 11:28 Drug: Tessalon Perle PO 200 mg PO once Route: PO; ap3 12:13 Follow up: Response: No adverse reaction ap3 Medication: 12:13 VIS not applicable for this client. ap3 Outcome: 11:55 Discharge ordered by . ec2 12:12 Discharged to home ambulatory, ap3 12:12 Condition: good 12:12 Discharge instructions given to patient, Instructed on discharge instructions, follow up and referral plans. medication usage, Demonstrated understanding of instructions, follow-up care, medications, Prescriptions given X 2, 12:13 Patient left the ED. ap3 Signatures: Dispatcher [employer] EDRI Amanda Landon, Reg Reg mr Maria Antonia Srinivasan, SUNDAR KWOK Sen Morton RN RN bp Prokisch, Amanda, RN RN ap3 Jeysno Mcfarland MD MD ec2
[2024-02-19 12:38] VITALS: BP 133/71; TEMP 98.6; O2SAT 98
== END 2024-02-19 12:13 | disposition home or self-care (01) ==
LOC: ER 10:44
DX: B34.9 Viral infection, unspecified (principal); Z11.52 Encounter for screening for COVID-19
CPT/HCPCS: 36415; 71045; 87804; 87811; 99284; Q0162

== ENCOUNTER 2024-05-01 15:46 | Emergency (ER) | payer SELFPAY ==
--- OUTSIDE RECORDS SUMMARY | 2024-05-01 15:54 | XMS REPORT | Continuity of Care Document ---
Author Name Unknown Address [address] [facility] [address]. [address] [place] [address] [facility] Address [address] [facility]. 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 Phone Craig Dayday MLCEOD Primary Care Physician + [phone] LIZETTE LUGO Attending Clinician Unavail able Lizette Patino Attending Clinician + Naomi Souza MD Attending Clinician + Kate Rome MD Attending Clinician [phone] Risk, Efc-Ezcbi-My/High Attending Clinician Mary Grace Blackwell Attending Clinician [phone] Ultrasound, Ang-Mfm Attending Clinician Bowen Acosta MD, Dion Harman Attending Clinician [phone] TONIO ECHOLS Attending Clinician Unavailable Jaclyn Duval MD Attending Clinician [phone] Radha Mehta MD Attending Clinician [phone] Doctor Unassigned, [place] Attending Clinician U ARSALAN Yang Attending Clinician Unavail able Arsalan Blandon DO Attending Clinician +[phone] DAYDAY GRAHAM Attending Clinician Unavailabl e Lab, Ang-Rmchp Attending Clinician Unavailable Dayday Rey Attending Clinician [phone] Candice Tara DICKERSON Attending Clinician +[phone] Tamiko Goncalves MD Attending Clinician [phone] Paul Montero Attending Clinician [phone] PAUL AREVALO Attending Clinician Unavailable matadrienne Attending Clinician Unavailable Altagracia Blandon MD Attending Clinician [phone] Yas Cordero Attending Clinician +[phone] Herman KWOK, Virginie Galvez Attending Clinician UnavailKATE Aleman Admitting Clinician Unavailable JACLYN DUVAL Admitting Clinician Unavailable RADHA MEHTA Admitting Clinician Unavailable Libby GOMEZ, Naomi Baig Admitting Clinician + Jaclyn Duval MD Admitting Clinician [phone] Radha Mehta MD Admitting Clinician [phone] theresa Admitting Clinician Unavailable Altagracia Blandon MD Admitting Clinician [phone] Yas Cordero Admitting Clinician [phone] Payers Payer Name Policy Type Policy Number Effective Date Expirati on Date Source [facility] [id number] 2020 00:00:00 MEDICAID PENDING PENDING 2020 00:00:00 Problems Condition Name Condition Details Condition Category Status Onset Date Resolution Date Last Treatment Date Treating Clinician Comments Source Other general counseling and advice for contracept mark management Other general counseling and advice for contracept mark management Disease Active 7-14 00:00: 00 [facility] Well woman exam Well woman exam Disease Active 2021-0 6-21 00:00: 00 [facility] History of tubal ligation History of tubal ligation Disease Active 0 6-21 00:00: 00 [facility] Single liveborn Single liveborn Disease Active 5-30 00:00: 00 [facility] (spontaneo us vaginal delivery) (spontaneo us vaginal delivery) Disease Active 530 00:00: 00 [facility] 37 weeks gestation of 37 weeks gestation of Disease Active 528 00:00: 00 [facility] 36 weeks gestation of 36 weeks gestation of Disease Active 522 00:00: 00 [facility] High-risk in third trimester High-risk in third trimester Disease Active 520 00:00: 00 [facility] Oral hypoglycem ic controlled White classifica tion A2 gestationa l diabetes mellitus (GDM) Oral hypoglycem ic controlled White classifica tion A2 gestationa l diabetes mellitus (GDM) Disease Active 520 00:00: 00 [facility] Abnormal finding in urine Abnormal finding in urine Disease Active 520 00:00: 00 [facility] Hematuria, unspecifie d type Hematuria, unspecifie d type Disease Active 520 00:00: 00 [facility] Diabetes mellitus complicati ng , antepartum Diabetes mellitus complicati ng , antepartum Disease Active -18 00:00: 00 [facility] Diabetes mellitus complicati ng , antepartum Diabetes mellitus complicati ng , antepartum Disease Active 3-18 00:00: 00 [facility] GDM (gestation al diabetes mellitus) GDM (gestation al diabetes mellitus) Disease Active 3-18 00:00: 00 [facility] Abnormal maternal glucose tolerance, antepartum Abnormal maternal glucose tolerance, antepartum Disease Active 3-10 00:00: 00 Overview: Formattin g of this note might be different from the original. Pending 3hr gtt [facility] Anemia of mother in , antepartum Anemia of mother in , antepartum Disease Active 3-05 00:00: 00 [facility] Dizziness and giddiness Dizziness and giddiness Disease Active 3-04 00:00: 00 [facility] Obesity (BMI 30-39.9) Obesity (BMI 30-39.9) Disease Active 2019-02 00:00: 00 [facility] Supervisio n of high risk in second trimester Supervisio n of high risk in second trimester Disease Active 2019-02 00:00: 00 [facility] Multiparit y Multiparit y Disease Active 2019-02 00:00: 00 [facility] Obesity complicati ng , childbirth , or puerperium , antepartum Obesity complicati ng , childbirth , or puerperium , antepartum Disease Active 2019-02 00:00: 00 [facility] Tubal ligation evaluation Tubal ligation evaluation Disease Active 2019-02 00:00: 00 [facility] Refused influenza vaccine Refused influenza vaccine Disease Active 2019-02 00:00: 00 [facility] Elevated BP without diagnosis of hypertensi on Elevated BP without diagnosis of hypertensi on Disease Active 2019-02 00:00: 00 [facility] Nausea and vomiting during Nausea and vomiting during Disease Active 2019-02 00:00: 00 [facility] screening for Down syndrome declined screening for Down syndrome declined Disease Active 2019-02 00:00: 00 [facility] Obesity in Obesity in Disease Active 2019-02 00:00: 00 [facility] Nexplanon removal Nexplanon removal Disease Active 2018-02 00:00: 00 Overview: Placed 11/2018 removed 02/2019 [facility] Well woman exam Well woman exam Disease Active 2018-02 0-07 00:00: 00 [facility] Routine follow-up Routine follow-up Disease Active 9-16 00:00: 00 [facility] Anemia, Anemia, Disease Active 20190 8-26 00:00: 00 [facility] Anemia, Anemia, Disease Active 20190 8-26 00:00: 00 [facility] 38 weeks gestation of 38 weeks gestation of Disease Active 2019 8-25 00:00: 00 [facility] Nausea & vomiting Nausea & vomiting Disease Active 2019 8-25 00:00: 00 [facility] Encounter for induction of labor Encounter for induction of labor Disease Active 2019 8 00:00: 00 [facility] Obesity (BMI 30-39.9) Obesity (BMI 30-39.9) Disease Active 8-12 00:00: 00 [facility] Decreased movements in third trimester Decreased movements in third trimester Disease Active 2019 8-12 00:00: 00 [facility] 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 Disease Active 2019 8-09 00:00: 00 [facility] Pain of round ligament affecting , antepartum Pain of round ligament affecting , antepartum Disease Active 2019 5-20 00:00: 00 [facility] Vaginal yeast infection Vaginal yeast infection Disease Active 20190 3-13 00:00: 00 [facility] Headache in Headache in Disease Active 2019 3-04 00:00: 00 [facility] Nausea and vomiting during Nausea and vomiting during Disease Active 2019 2-04 00:00: 00 [facility] Chlamydia trachomati s infection of lower genitourin fiona sites Chlamydia trachomati s infection of lower genitourin fiona sites Disease Active 20190 1-08 00:00: 00 Overview: Jhon negative repeat at 36 weeks [facility] Abnormal maternal glucose tolerance, antepartum Abnormal maternal glucose tolerance, antepartum Disease Active 2019 1-05 00:00: 00 Overview: Passed early 3hr, will need 3hr at 28 weeks -passed [facility] Influenza vaccinatio n declined Influenza vaccinatio n declined Disease Active 2019 1-04 00:00: 00 [facility] History of hypothyroi dism History of hypothyroi dism Disease Active 02-20 00:00: 00 Overview: No medicatio n, consider labs second trimester [facility] Rubella non-immune status, antepartum Rubella non-immune status, antepartum Disease Active 2013-02 00:00: 00 [facility] Obesity affecting in third trimester Obesity affecting in third trimester Disease Active 2013-02 00:00: 00 Overview: Formattin g of this note might be different from the original. 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[employer] [facility] Supervisio n of high-risk Supervisio n of high-risk Disease Active 2013-02 00:00: 00 [facility] Allergies, Adverse Reactions, Alerts Allergy Name Allergy Type Status Severity Reaction(s) Onset Date Inactive Date Treating Clinician Comments Source No Known Allergie s DA Active U 06-04 00:00: 00 [facility] No Known Allergie s DA Active U 06-04 00:00: 00 [facility] NO KNOWN ALLERGIE S Drug Class Active [facility] Social History Social Habit Start Date Stop Date Quantity Comments Source ASSERTION 2019-11-08 00:00:00 [facility] to SARS-CoV-2 (event) 2020-07-31 00:00:00 2020-08-30 08:38:00 Not sure [facility] Alcohol intake 2019-12-06 00:00:00 2019-12-06 00:00:00 Current non-drinker of alcohol (finding) [facility] History of Social function 2019-12-03 00:00:00 2019-12-03 00:00:00 [facility] Tobacco use and exposure 2013-12-07 00:00:00 2013-12-07 00:00:00 Smokeless tobacco non-user [facility] Sex Assigned At 1995 00:00:00 1995 00:00:00 [facility] Smoking Status Start Date Stop Date Source Never smoked tobacco [facility] Medications Ordered Medication Name Filled Medication Name Start Date Stop Date Current Medication? Ordering Clinician Indication Dosage Frequency Signature (SIG) Comments Components Source HYDROcodone -acetaminop hen (NORCO 5) 5-325 mg tablet 1 tablet 07-16 01:56: 22 Yes 1{tbl} 1 tablet, Oral, Q6HPRN, Starting 07/15/20 at 2055, Until Discontinu ed, Routine, Pain (scale 7-10) [facility] rho(D) immune globulin (RHOGAM) syringe 300 mcg 07-16 01:39: 54 Yes 300ug 300 mcg, Intramuscu lar, ONCE, For 1 dose, Conditiona l, Routine [facility] ondansetron (ZOFRAN (PF)) injection 4 mg 07-16 01:39: 06 Yes 4mg 4 mg, Slow IV Push, Q8HPRN, Starting 07/15/20 at 2038, Until Discontinu ed, Routine, Nausea and Vomiting (N/V) [facility] simethicone (GAS RELIEF (SIMETHICON E)) chewable tablet 160 mg 07-16 01:39: 06 Yes 160mg 160 mg, Oral, PC+HSPRN, Starting 07/15/20 at 2038, Until Discontinu ed, Routine, Gas [facility] acetaminoph en (TYLENOL) tablet 650 mg 07-16 01:39: 05 Yes 650mg 650 mg, Oral, Q6HPRN, Starting 07/15/20 at 2038, Until Discontinu ed, Routine, Pain (scale 1-3) [facility] diphenhydrA MINE (BENADRYL) tablet 25 mg 07-16 01:39: 05 Yes 25mg 25 mg, Oral, Q6HPRN, Starting 07/15/20 at 2038, Until Discontinu ed, Routine, Sleep, Itching [facility] diphenhydrA MINE-0.9 % sod.chlr (BENADRYL) 25 mg/50 mL piggyback 25 mg 07-16 01:39: 05 Yes 25mg 25 mg, IV Piggyback, Administer over 30 Minutes, Q6HPRN, Starting 07/15/20 at 2038, Until Discontinu ed, Routine, Itching [facility] docusate calcium (SURFAK) capsule 240 mg 07-16 01:39: 05 Yes 240mg 240 mg, Oral, QDAILYPRN, Starting 07/15/20 at 2038, Until Discontinu ed, Routine, Constipati on [facility] magnesium hydroxide (MILK OF MAGNESIA) 400 mg/5 mL suspension 30 mL 07-16 01:39: 05 Yes 30mL 30 mL, Oral, QDAILYPRN, Starting 07/15/20 at 2038, Until Discontinu ed, Routine, Constipati on [facility] benzocaine- menthol (DERMOPLAST ) 20-0.5 % topical spray 07-16 01:39: 05 Yes Topical, PRN, Starting 07/15/20 at 2038, Until Discontinu ed, Routine, Perineum discomfort [facility] acetaminoph en ADULT (OFIRMEV) injection 1,000 mg 07-16 01:00: 00 07-16 00:23 :00 No 1000mg 1,000 mg, IV Infusion, Administer over 15 Minutes, ONCE, 1 dose, 07/15/20 at 2000, Routine, PACU
In dication: Perioperat mark Patient [facility] ketorolac (TORADOL) injection 30 mg 07-16 00:01: 12 07-16 00:51 :00 No 30mg 30 mg, Slow IV Push, Q6HPRN, 1 dose, Starting 07/15/20 at 1901, Until 07/15/20 at 195, Routine, Pain (scale 4-6), PACU
[facility] approving Restricted medication : KELLEN KENNEDY [facility] vitamin w/FA tablet 07-16 00:00: 00 Yes [id number] 1{tbl} Take 1 tablet by mouth daily. [facility] ferrous sulfate 325 mg (65 mg iron) tablet 07-16 00:00: 00 Yes [id number] 325mg Take 1 tablet by mouth 2 (two) times daily. [facility] docusate calcium 240 mg capsule 07-16 00:00: 00 Yes [id number] 240mg Take 1 capsule by mouth once daily as needed for Constipati on. [facility] ibuprofen 600 mg tablet 07-16 00:00: 00 Yes [id number] 600mg Take 1 tablet by mouth every 6 (six) hours as needed for Pain (scale 4-6). [facility] acetaminoph en 325 mg tablet 07-16 00:00: 00 07-17 04:59 :00 No [id number] 650mg Take 2 tablets by mouth every 6 (six) hours as needed for Pain (scale 1-3). [facility] bupivacaine (preserv free) (SENSORCAIN E MPF) 0.25 % (2.5 mg/mL) injection 07-15 23:06: 00 Yes PRN, Starting 07/15/20 at 1806, Until Discontinu ed, Routine, Intra-op [facility] ibuprofen (IBU) tablet 600 mg 07-15 19:22: 05 Yes 600mg 600 mg, Oral, Q6HPRN, Starting 07/15/20 at 1422, Until Discontinu ed, Routine, Pain (scale 4-6) [facility] ibuprofen (IBU) tablet 600 mg 07-15 19:22: 07-15 19:25 :00 No 600mg 600 mg, Oral, ONCE, 1 dose, 07/15/20 at 1430, Routine [facility] ondansetron (ZOFRAN (PF)) injection 4 mg 07-15 15:54: 00 07-15 15:56 :00 No 4mg 4 mg, Slow IV Push, ONCE, 1 dose, 07/15/20 at 1100, Routine [facility] LR 1000 mL + oxytocin 20 units IV Solution 07-15 14:45: 00 07-15 17:23 :00 No 999mL/h 999 mL/hr, IV Infusion, ONCE, 07/15/20 at 0945, For 1 dose
In fuse 999 mL /hr & nbsp;over 30 minutes and then decrease rate to 125 mL/hr for the remainder.
[facility] pantoprazol e (PROTONIX) EC tablet 40 mg 07-15 14:00: 00 Yes 40mg 40 mg, Oral, DAILY, First dose on 07/15/20 at 0900, Until Discontinu ed, Routine [facility] lactated ringers IV infusion 500 mL 07-15 08:30: 00 07-15 07:48 :00 No 500mL at 999 mL/hr, 500 mL, IV Infusion, ONCE, 1 dose, 07/15/20 at 0330, Routine [facility] sodium citrate-cit gloria acid (BICITRA) 500-334 mg/5 mL solution 30 mL 07-15 07:27: 28 07-15 22:30 :00 No 30mL 30 mL, Oral, PRE-PROCED URE ONCE, 1 dose, Starting 07/15/20 at 0227, Until Discontinu ed, Routine, Surgery/Pr ocedure [facility] butalbital- acetaminoph en-caff (ESGIC) 50-325-40 mg tablet 2 tablet 07-15 07:15: 00 07-15 06:20 :00 No 2{tbl} 2 tablet, Oral, ONCE, 1 dose, 07/15/20 at 0215, Routine [facility] D5W-LR IV infusion 1,000 mL 07-15 04:00: 00 07-16 01:39 :54 No 1000mL at 125 mL/hr, IV Infusion, CONTINUOUS , Starting Fri07/14/20 at 2300, Until 07/15/20 at 2039, Routine [facility] Sliding Scale Insulin - Regular + Fsbg Testing 07-15 03:58: 17 07-16 01:39 :54 No Subcutaneo us, SEE-INSTRU CTIONS, Starting Fri07/14/20 at 2258, Until 07/15/20 at 2039, Routine [facility] sodium citrate-cit gloria acid (BICITRA) 500-334 mg/5 mL solution 30 mL 07-15 03:57: 09 07-15 07:47 :00 No 30mL 30 mL, Oral, PRE-PROCED URE ONCE, 1 dose, Starting 07/14/20 at 2257, Until Discontinu ed, Routine, Surgery/Pr ocedure [facility] metroNIDAZO LE 500 mg tablet 07-09 00:00: 00 07-16 00:00 :00 No [id number] 500mg Take 1 tablet by mouth 2 (two) times daily. [facility] glyBURIDE 2.5 mg tablet 06-22 00:00: 00 07-16 00:00 :00 No [id number] Take 1 tab PO AC breakfast and 1 tab PO HS with snack [facility] pantoprazol e (PROTONIX) 40 mg EC tablet 06-22 00:00: 00 07-16 00:00 :00 No [id number] 40mg Take 1 tablet by mouth daily. [facility] proMETHazin e 25 mg tablet 06-22 00:00: 00 07-16 00:00 :00 No [id number] 25mg Take 1 tablet by mouth every 6 (six) hours as needed for Nausea and Vomiting (N/V). [facility] Lancets (ONETOUCH ULTRASOFT LANCETS) [facility] [place]04 00:00: 00 Yes [id number] Check blood glucose 4x daily [facility] Blood-Gluco se Meter (ONETOUCH ULTRA2 METER) Kit 05-04 00:00: 00 07-16 00:00 :00 No [id number] Check blood glucose 4x dialy [facility] Lancets (ONETOUCH ULTRASOFT LANCETS) [facility] 05-04 00:00: 00 07-16 00:00 :00 No [id number] Check blood glucose 4x daily [facility] blood sugar diagnostic (ONETOUCH VERIO TEST STRIPS) strip 3-18 00:00: 00 07-16 00:00 :00 No [id number] Check blood glucose 4x daily [facility] ascorbic acid, vitamin C, 500 mg tablet 310 00:00: 00 07-16 00:00 :00 No [id number] 500mg Take 1 tablet by mouth 3 (three) times daily. [facility] ferrous sulfate 325 mg (65 mg iron) tablet 04-26 00:00: 00 07-16 00:00 :00 No [id number] 325mg Take 1 tablet by mouth 2 (two) times daily. [facility] ferrous sulfate 325 mg (65 mg iron) tablet 04-21 00:00: 00 Yes [id number] 325mg Take 1 tablet by mouth 2 (two) times daily. [facility] ascorbic acid, vitamin C, 500 mg tablet 04-21 00:00: 00 Yes [id number] 500mg Take 1 tablet by mouth 3 (three) times daily. [facility] PNV 67-iron ps-folate no.1-dha (VITAFOL ULTRA) 29 mg iron- 1 mg-200 mg Cap 2019-02 2-15 00:00: 00 07-16 00:00 :00 No [id number] 1{capsu le} Take 1 capsule by mouth daily. [facility] PNV 67-iron ps-folate no.1-dha (VITAFOL ULTRA) 29 mg iron- 1 mg-200 mg Cap 2019-02 2-15 00:00: 00 07-16 00:00 :00 No [id number] 1{capsu le} Take 1 capsule by mouth daily. [facility] measles, mumps + rubella vac (M-M-R II) 1,000-12,50 0 TCID50/0.5 mL injection 0.5 mL 10-13 13:00: 00 10-13 17:27 :00 No .5mL 0.5 mL, Subcutaneo us, ONCE, 1 dose, Tu10/13/18 at 0800, Routine [facility] vitamin w/FA tablet 10-13 00:00: 00 12-02 00:00 :00 No [id number] 1{tbl} Take 1 tablet by mouth daily. [facility] docusate calcium 240 mg capsule 10-13 00:00: 00 12-02 00:00 :00 No [id number] 240mg Take 1 capsule by mouth once daily as needed for Constipati on. [facility] ferrous sulfate 325 mg (65 mg iron) tablet 10-13 00:00: 00 12-02 00:00 :00 No [id number] 325mg Take 1 tablet by mouth 2 (two) times daily. [facility] ibuprofen 600 mg tablet 10-13 00:00: 00 12-02 00:00 :00 No [id number] 600mg Take 1 tablet by mouth every 6 (six) hours as needed for Pain (scale 1-3) or Pain (scale 4-6) (Pain). Take with food or milk. [facility] human papillomav vac,9-katherine(P F) (GARDASIL 9 (PF)) vial 0.5 mL 10-12 10:32: 12 Yes .5mL 0.5 mL, Intramuscu lar, ONCE-PRIOR TO DISCHARGE, 1 dose, Starting 10/12/18 at 0532, Until Discontinu ed, Routine, Give vaccine prior to discharge [facility] acetaminoph en (TYLENOL) tablet 650 mg 10-12 10:32: 12 Yes 650mg 650 mg, Oral, Q6HPRN, Starting 10/12/18 at 0532, Until Discontinu ed, Routine, Pain (scale 1-3) [facility] ibuprofen (IBU) tablet 600 mg 10-12 10:32: 12 Yes 600mg 600 mg, Oral, Q6HPRN, Starting 10/12/18 at 0532, Until Discontinu ed, Routine, Pain (scale 4-6) [facility] diphenhydrA MINE (BENADRYL) tablet 25 mg 10-12 10:32: 12 Yes 25mg 25 mg, Oral, Q6HPRN, Starting Fri10/12/18 at 0532, Until Discontinu ed, Routine, Sleep, Itching [facility] ondansetron (ZOFRAN (PF)) injection 4 mg 10-12 10:32: 12 Yes 4mg 4 mg, Slow IV Push, Q8HPRN, Starting Fri10/12/18 at 0532, Until Discontinu ed, Routine, Nausea and Vomiting (N/V) [facility] simethicone (GAS RELIEF) chewable tablet 160 mg 10-12 10:32: 12 Yes 160mg 160 mg, Oral, PC+HSPRN, Starting Fri10/12/18 at 0532, Until Discontinu ed, Routine, Gas [facility] docusate calcium (SURFAK) capsule 240 mg 10-12 10:32: 12 Yes 240mg 240 mg, Oral, QDAILYPRN, Starting Fri10/12/18 at 0532, Until Discontinu ed, Routine, Constipati on [facility] magnesium hydroxide (MILK OF MAGNESIA) 400 mg/5 mL suspension 30 mL 10-12 10:32: 12 Yes 30mL 30 mL, Oral, QDAILYPRN, Starting Fri10/12/18 at 0532, Until Discontinu ed, Routine, Constipati on [facility] benzocaine- menthol (DERMOPLAST ) 20-0.5 % topical spray 10-12 10:32: 12 Yes Topical, PRN, Starting Fri10/12/18 at 0532, Until Discontinu ed, Routine, Perineum discomfort [facility] ondansetron (ZOFRAN (PF)) injection 4 mg 10-12 08:15: 00 10-12 07:21 :00 No 4mg 4 mg, Slow IV Push, ONCE, 1 dose, Fri10/12/18 at 0315, Routine [facility] LR 1000 mL + oxytocin 20 units IV Solution 10-12 06:45: 00 10-12 05:57 :00 No at 999 mL/hr, IV Infusion, ONCE, 1 dose, Fri10/12/18 at 0145, Routine [facility] sodium citrate-cit gloria acid (BICITRA) 500-334 mg/5 mL solution 30 mL 10-11 21:25: 17 10-11 21:43 :00 No 30mL 30 mL, Oral, PRE-PROCED URE ONCE, 1 dose, Starting 10/11/18 at 1625, Until Discontinu ed, Routine, Surgery/Pr ocedure [facility] LR 1000 mL + oxytocin 20 units IV Solution 10-11 17:44: 00 10-12 10:32 :17 No 2mU/min 2 radha-unit s/min (6 mL/hr), at 6 mL/hr, IV Infusion, TITRATE, Starting 10/11/18 at 1244, Until 10/12/18 at 0532, TERI, CTX q2m [facility] acetaminoph en-caff-but albital (ESGIC) per capsule 08-26 00:00: 00 12-02 00:00 :00 No [id number] 1{capsu le} Take 1 capsule by mouth every 6 (six) hours as needed for Pain. [facility] proMETHazin e 25 mg tablet 06-26 00:00: 00 12-02 00:00 :00 No [id number] 25mg Take 1 tablet by mouth every 6 (six) hours as needed for Nausea and Vomiting (N/V). [facility] acetaminoph en-caff-but albital (ESGIC) per capsule 06-26 00:00: 00 09-30 00:00 :00 No [id number] 1{capsu le} Take 1 capsule by mouth every 6 (six) hours as needed (headache) . [facility] proMETHazin e 25 mg tablet 03-05 00:00: 00 09-30 00:00 :00 No [id number] 25mg Take 1 tablet by mouth every 6 (six) hours as needed for Nausea and Vomiting (N/V). [facility] No known medications No [facility] No known medications No [facility] No known medications No [facility] Immunizations Ordered Immunization Name Filled Immunization Name Date Status Comments Source SARS-COV-2 COVID-19 MODERNA VACCINE 2020-06-20 00:00:00 Completed [facility] SARS-COV-2 COVID-19 MODERNA VACCINE 2020-06-20 00:00:00 Completed [facility] SARS-COV-2 COVID-19 MODERNA VACCINE 2020-06-20 00:00:00 Completed [facility] SARS-COV-2 COVID-19 MODERNA VACCINE 2020-06-20 00:00:00 Completed [facility] SARS-COV-2 COVID-19 MODERNA VACCINE 2020-06-20 00:00:00 Completed [facility] SARS-COV-2 COVID-19 MODERNA VACCINE 2020-06-20 00:00:00 Completed [facility] SARS-COV-2 COVID-19 MODERNA VACCINE 2020-06-20 00:00:00 Completed [facility] SARS-COV-2 COVID-19 MODERNA VACCINE 2020-06-20 00:00:00 Completed [facility] SARS-COV-2 COVID-19 MODERNA VACCINE 2020-06-20 00:00:00 Completed [facility] SARS-COV-2 COVID-19 MODERNA VACCINE 2020-06-20 00:00:00 Completed [facility] SARS-COV-2 COVID-19 MODERNA VACCINE 2020-06-20 00:00:00 Completed [facility] SARS-COV-2 COVID-19 MODERNA VACCINE 2020-06-20 00:00:00 Completed [facility] SARS-COV-2 COVID-19 MODERNA VACCINE 2020-06-20 00:00:00 Completed [facility] SARS-COV-2 COVID-19 MODERNA VACCINE 2020-06-20 00:00:00 Completed [facility] SARS-COV-2 COVID-19 MODERNA VACCINE 2020-06-20 00:00:00 Completed [facility] SARS-COV-2 COVID-19 MODERNA VACCINE 2020-05-23 00:00:00 Completed [facility] SARS-COV-2 COVID-19 MODERNA VACCINE 2020-05-23 00:00:00 Completed [facility] SARS-COV-2 COVID-19 MODERNA VACCINE 2020-05-23 00:00:00 Completed [facility] SARS-COV-2 COVID-19 MODERNA VACCINE 2020-05-23 00:00:00 Completed [facility] SARS-COV-2 COVID-19 MODERNA VACCINE 2020-05-23 00:00:00 Completed [facility] SARS-COV-2 COVID-19 MODERNA VACCINE 2020-05-23 00:00:00 Completed [facility] SARS-COV-2 COVID-19 MODERNA VACCINE 2020-05-23 00:00:00 Completed [facility] SARS-COV-2 COVID-19 MODERNA VACCINE 2020-05-23 00:00:00 Completed [facility] SARS-COV-2 COVID-19 MODERNA VACCINE 2020-05-23 00:00:00 Completed [facility] SARS-COV-2 COVID-19 MODERNA VACCINE 2020-05-23 00:00:00 Completed [facility] SARS-COV-2 COVID-19 MODERNA VACCINE 2020-05-23 00:00:00 Completed [facility] SARS-COV-2 COVID-19 MODERNA VACCINE 2020-05-23 00:00:00 Completed [facility] SARS-COV-2 COVID-19 MODERNA VACCINE 2020-05-23 00:00:00 Completed [facility] SARS-COV-2 COVID-19 MODERNA VACCINE 2020-05-23 00:00:00 Completed [facility] SARS-COV-2 COVID-19 MODERNA VACCINE 2020-05-23 00:00:00 Completed [facility] SARS-COV-2 COVID-19 MODERNA VACCINE 2020-05-23 00:00:00 Completed [facility] SARS-COV-2 COVID-19 MODERNA VACCINE 2020-05-23 00:00:00 Completed [facility] SARS-COV-2 COVID-19 MODERNA VACCINE 2020-05-23 00:00:00 Completed [facility] SARS-COV-2 COVID-19 MODERNA VACCINE 2020-05-23 00:00:00 Completed [facility] SARS-COV-2 COVID-19 MODERNA VACCINE 2020-05-23 00:00:00 Completed [facility] SARS-COV-2 COVID-19 MODERNA VACCINE 2020-05-23 00:00:00 Completed [facility] TDAP 2020-05-08 00:00:00 Completed [facility] TDAP 2020-05-08 00:00:00 Completed [facility] TDAP 2020-05-08 00:00:00 Completed [facility] TDAP 2020-05-08 00:00:00 Completed [facility] TDAP 2020-05-08 00:00:00 Completed [facility] TDAP 2020-05-08 00:00:00 Completed [facility] TDAP 2020-05-08 00:00:00 Completed [facility] TDAP 2020-05-08 00:00:00 Completed [facility] TDAP 2020-05-08 00:00:00 Completed [facility] TDAP 2020-05-08 00:00:00 Completed [facility] TDAP 2020-05-08 00:00:00 Completed [facility] TDAP 2020-05-08 00:00:00 Completed [facility] TDAP 2020-05-08 00:00:00 Completed [facility] TDAP 2020-05-08 00:00:00 Completed [facility] TDAP 2020-05-08 00:00:00 Completed [facility] TDAP 2020-05-08 00:00:00 Completed [facility] TDAP 2020-05-08 00:00:00 Completed [facility] TDAP 2020-05-08 00:00:00 Completed [facility] TDAP 2020-05-08 00:00:00 Completed [facility] TDAP 2020-05-08 00:00:00 Completed [facility] TDAP 2020-05-08 00:00:00 Completed [facility] TDAP 2020-05-08 00:00:00 Completed [facility] TDAP 2020-05-08 00:00:00 Completed [facility] TDAP 2020-05-08 00:00:00 Completed [facility] TDAP 2020-05-08 00:00:00 Completed [facility] TDAP 2020-05-08 00:00:00 Completed [facility] MMR 2018-10-13 00:00:00 Completed [facility] MMR 2018-10-13 00:00:00 Completed [facility] MMR 2018-10-13 00:00:00 Completed [facility] MMR 2018-10-13 00:00:00 Completed [facility] MMR 2018-10-13 00:00:00 Completed [facility] MMR 2018-10-13 00:00:00 Completed [facility] MMR 2018-10-13 00:00:00 Completed [facility] MMR 2018-10-13 00:00:00 Completed [facility] MMR 2018-10-13 00:00:00 Completed [facility] MMR 2018-10-13 00:00:00 Completed [facility] MMR 2018-10-13 00:00:00 Completed [facility] MMR 2018-10-13 00:00:00 Completed [facility] MMR 2018-10-13 00:00:00 Completed [facility] MMR 2018-10-13 00:00:00 Completed [facility] MMR 2018-10-13 00:00:00 Completed [facility] MMR 2018-10-13 00:00:00 Completed [facility] MMR 2018-10-13 00:00:00 Completed [facility] MMR 2018-10-13 00:00:00 Completed [facility] MMR 2018-10-13 00:00:00 Completed [facility] MMR 2018-10-13 00:00:00 Completed [facility] MMR 2018-10-13 00:00:00 Completed [facility] MMR 2018-10-13 00:00:00 Completed [facility] MMR 2018-10-13 00:00:00 Completed [facility] MMR 2018-10-13 00:00:00 Completed [facility] MMR 2018-10-13 00:00:00 Completed [facility] MMR 2018-10-13 00:00:00 Completed [facility] MMR 2018-10-13 00:00:00 Completed [facility] MMR 2018-10-13 00:00:00 Completed [facility] MMR 2018-10-13 00:00:00 Completed [facility] MMR 2018-10-13 00:00:00 Completed [facility] MMR 2018-10-13 00:00:00 Completed [facility] MMR 2018-10-13 00:00:00 Completed [facility] MMR 2018-10-13 00:00:00 Completed [facility] MMR 2018-10-13 00:00:00 Completed [facility] MMR 2018-10-13 00:00:00 Completed [facility] MMR 2018-10-13 00:00:00 Completed [facility] MMR 2018-10-13 00:00:00 Completed [facility] MMR 2018-10-13 00:00:00 Completed [facility] MMR 2018-10-13 00:00:00 Completed [facility] MMR 2018-10-13 00:00:00 Completed [facility] MMR 2018-10-13 00:00:00 Completed [facility] MMR 2018-10-13 00:00:00 Completed [facility] MMR 2018-10-13 00:00:00 Completed [facility] MMR 2018-10-13 00:00:00 Completed [facility] MMR 2018-10-13 00:00:00 Completed [facility] MMR 2018-10-13 00:00:00 Completed [facility] TDAP (ADACEL) VACCINE 2018-07-29 00:00:00 Completed [facility] TDAP (ADACEL) VACCINE 2018-07-29 00:00:00 Completed [facility] TDAP (ADACEL) VACCINE 2018-07-29 00:00:00 Completed [facility] TDAP (ADACEL) VACCINE 2018-07-29 00:00:00 Completed [facility] TDAP (ADACEL) VACCINE 2018-07-29 00:00:00 Completed [facility] TDAP (ADACEL) VACCINE 2018-07-29 00:00:00 Completed [facility] TDAP (ADACEL) VACCINE 2018-07-29 00:00:00 Completed [facility] TDAP (ADACEL) VACCINE 2018-07-29 00:00:00 Completed [facility] TDAP (ADACEL) VACCINE 2018-07-29 00:00:00 Completed [facility] TDAP (ADACEL) VACCINE 2018-07-29 00:00:00 Completed [facility] TDAP (ADACEL) VACCINE 2018-07-29 00:00:00 Completed [facility] TDAP (ADACEL) VACCINE 2018-07-29 00:00:00 Completed [facility] TDAP (ADACEL) VACCINE 2018-07-29 00:00:00 Completed [facility] TDAP (ADACEL) VACCINE 2018-07-29 00:00:00 Completed [facility] TDAP (ADACEL) VACCINE 2018-07-29 00:00:00 Completed [facility] TDAP (ADACEL) VACCINE 2018-07-29 00:00:00 Completed [facility] TDAP (ADACEL) VACCINE 2018-07-29 00:00:00 Completed [facility] TDAP (ADACEL) VACCINE 2018-07-29 00:00:00 Completed [facility] TDAP (ADACEL) VACCINE 2018-07-29 00:00:00 Completed [facility] TDAP (ADACEL) VACCINE 2018-07-29 00:00:00 Completed [facility] TDAP (ADACEL) VACCINE 2018-07-29 00:00:00 Completed [facility] TDAP (ADACEL) VACCINE 2018-07-29 00:00:00 Completed [facility] TDAP (ADACEL) VACCINE 2018-07-29 00:00:00 Completed [facility] TDAP (ADACEL) VACCINE 2018-07-29 00:00:00 Completed [facility] TDAP (ADACEL) VACCINE 2018-07-29 00:00:00 Completed [facility] TDAP (ADACEL) VACCINE 2018-07-29 00:00:00 Completed [facility] TDAP (ADACEL) VACCINE 2018-07-29 00:00:00 Completed [facility] TDAP (ADACEL) VACCINE 2018-07-29 00:00:00 Completed [facility] TDAP (ADACEL) VACCINE 2018-07-29 00:00:00 Completed [facility] TDAP (ADACEL) VACCINE 2018-07-29 00:00:00 Completed [facility] TDAP (ADACEL) VACCINE 2018-07-29 00:00:00 Completed [facility] TDAP (ADACEL) VACCINE 2018-07-29 00:00:00 Completed [facility] TDAP (ADACEL) VACCINE 2018-07-29 00:00:00 Completed [facility] TDAP (ADACEL) VACCINE 2018-07-29 00:00:00 Completed [facility] TDAP (ADACEL) VACCINE 2018-07-29 00:00:00 Completed [facility] TDAP (ADACEL) VACCINE 2018-07-29 00:00:00 Completed [facility] TDAP (ADACEL) VACCINE 2018-07-29 00:00:00 Completed [facility] TDAP (ADACEL) VACCINE 2018-07-29 00:00:00 Completed [facility] TDAP (ADACEL) VACCINE 2018-07-29 00:00:00 Completed [facility] TDAP (ADACEL) VACCINE 2018-07-29 00:00:00 Completed [facility] TDAP (ADACEL) VACCINE 2018-07-29 00:00:00 Completed [facility] TDAP (ADACEL) VACCINE 2018-07-29 00:00:00 Completed [facility] TDAP (ADACEL) VACCINE 2018-07-29 00:00:00 Completed [facility] TDAP (ADACEL) VACCINE 2018-07-29 00:00:00 Completed [facility] TDAP (ADACEL) VACCINE 2018-07-29 00:00:00 Completed [facility] TDAP (ADACEL) VACCINE 2018-07-29 00:00:00 Completed [facility] TDAP (ADACEL) VACCINE 2018-07-29 00:00:00 Completed [facility] TDAP (ADACEL) VACCINE 2018-07-29 00:00:00 Completed [facility] TDAP (ADACEL) VACCINE 2018-07-29 00:00:00 Completed [facility] TDAP (ADACEL) VACCINE 2018-07-29 00:00:00 Completed [facility] TDAP (ADACEL) VACCINE 2018-07-29 00:00:00 Completed [facility] TDAP (ADACEL) VACCINE 2018-07-29 00:00:00 Completed [facility] TDAP (ADACEL) VACCINE 2018-07-29 00:00:00 Completed [facility] TDAP (ADACEL) VACCINE 2018-07-29 00:00:00 Completed [facility] TDAP (ADACEL) VACCINE 2018-07-29 00:00:00 Completed [facility] TDAP (ADACEL) VACCINE 2018-07-29 00:00:00 Completed [facility] TDAP 2009-02-17 00:00:00 Completed [facility] TDAP 2009-02-17 00:00:00 Completed [facility] TDAP 2009-02-17 00:00:00 Completed [facility] TDAP 2009-02-17 00:00:00 Completed [facility] TDAP 2009-02-17 00:00:00 Completed [facility] TDAP 2009-02-17 00:00:00 Completed [facility] TDAP 2009-02-17 00:00:00 Completed [facility] TDAP 2009-02-17 00:00:00 Completed [facility] TDAP 2009-02-17 00:00:00 Completed [facility] TDAP 2009-02-17 00:00:00 Completed [facility] TDAP 2009-02-17 00:00:00 Completed [facility] TDAP 2009-02-17 00:00:00 Completed [facility] TDAP 2009-02-17 00:00:00 Completed [facility] TDAP 2009-02-17 00:00:00 Completed [facility] TDAP 2009-02-17 00:00:00 Completed [facility] TDAP 2009-02-17 00:00:00 Completed [facility] TDAP 2009-02-17 00:00:00 Completed [facility] TDAP 2009-02-17 00:00:00 Completed [facility] TDAP 2009-02-17 00:00:00 Completed [facility] TDAP 2009-02-17 00:00:00 Completed [facility] TDAP 2009-02-17 00:00:00 Completed [facility] Tdap 2009-02-17 00:00:00 Completed [facility] Tdap 2009-02-17 00:00:00 Completed [facility] Tdap 2009-02-17 00:00:00 Completed [facility] Tdap 2009-02-17 00:00:00 Completed [facility] Tdap 2009-02-17 00:00:00 Completed [facility] Tdap 2009-02-17 00:00:00 Completed [facility] Tdap 2009-02-17 00:00:00 Completed [facility] Tdap 2009-02-17 00:00:00 Completed [facility] Tdap 2009-02-17 00:00:00 Completed [facility] Tdap 2009-02-17 00:00:00 Completed [facility] Tdap 2009-02-17 00:00:00 Completed [facility] Tdap 2009-02-17 00:00:00 Completed [facility] Tdap 2009-02-17 00:00:00 Completed [facility] Tdap 2009-02-17 00:00:00 Completed [facility] Tdap 2009-02-17 00:00:00 Completed [facility] TDAP 2009-02-17 00:00:00 Completed [facility] TDAP 2009-02-17 00:00:00 Completed [facility] TDAP 2009-02-17 00:00:00 Completed [facility] TDAP 2009-02-17 00:00:00 Completed [facility] TDAP 2009-02-17 00:00:00 Completed [facility] TDAP 2009-02-17 00:00:00 Completed [facility] TDAP 2009-02-17 00:00:00 Completed [facility] TDAP 2009-02-17 00:00:00 Completed [facility] TDAP 2009-02-17 00:00:00 Completed [facility] TDAP 2009-02-17 00:00:00 Completed [facility] TDAP 2009-02-17 00:00:00 Completed [facility] TDAP 2009-02-17 00:00:00 Completed [facility] TDAP 2009-02-17 00:00:00 Completed [facility] TDAP 2009-02-17 00:00:00 Completed [facility] TDAP 2009-02-17 00:00:00 Completed [facility] TDAP 2009-02-17 00:00:00 Completed [facility] TDAP 2009-02-17 00:00:00 Completed [facility] TDAP 2009-02-17 00:00:00 Completed [facility] TDAP 2009-02-17 00:00:00 Completed [facility] TDAP 2009-02-17 00:00:00 Completed [facility] TDAP Unknown Completed [facility] MMR Unknown Completed [facility] TDAP Unknown Completed [facility] MMR Unknown Completed [facility] TDAP Unknown Completed [facility] MMR Unknown Completed [facility] TDAP Unknown Completed [facility] MMR Unknown Completed [facility] TDAP Unknown Completed [facility] MMR Unknown Completed [facility] TDAP Unknown Completed [facility] MMR Unknown Completed [facility] Vital Signs Vital Name Observation Time Observation Value Comments S ource Systolic blood pressure 2020-08-30 13:38:00 125 mm[Hg] [facility] Diastolic blood pressure 2020-08-30 13:38:00 80 mm[Hg] [facility] Heart rate 2020-08-30 13:38:00 67 /min [facility] Body temperature 2020-08-30 13:38:00 36.5 Anel [facility] Respiratory rate 2020-08-30 13:38:00 16 /min [facility] Body height 2020-08-30 13:38:00 170.2 cm [facility] Body weight 2020-08-30 13:38:00 103.023 kg [facility] BMI 2020-08-30 13:38:00 35.57 kg/m2 [facility] Systolic blood pressure 2020-08-07 14:31:00 118 mm[Hg] [facility] Diastolic blood pressure 2020-08-07 14:31:00 79 mm[Hg] [facility] Heart rate 2020-08-07 14:31:00 60 /min [facility] Body temperature 2020-08-07 14:31:00 36.83 Anel [facility] Respiratory rate 2020-08-07 14:31:00 16 /min [facility] Body height 2020-08-07 14:31:00 170.2 cm [facility] Body weight 2020-08-07 14:31:00 101.379 kg [facility] BMI 2020-08-07 14:31:00 35.01 kg/m2 [facility] Systolic blood pressure 2020-07-16 12:54:00 124 mm[Hg] [facility] Diastolic blood pressure 2020-07-16 12:54:00 74 mm[Hg] [facility] Heart rate 2020-07-16 12:54:00 67 /min [facility] Body temperature 2020-07-16 12:54:00 36.22 Anel [facility] Respiratory rate 2020-07-16 12:54:00 18 /min [facility] Oxygen saturation in Arterial blood by Pulse oximetry 2020-07-16 12:54:00 97 /min [facility] Systolic blood pressure 2020-07-15 15:20:00 120 mm[Hg] [facility] Diastolic blood pressure 2020-07-15 15:20:00 53 mm[Hg] [facility] Heart rate 2020-07-15 15:20:00 85 /min [facility] Respiratory rate 2020-07-15 15:20:00 18 /min [facility] Oxygen saturation in Arterial blood by Pulse oximetry 2020-07-15 15:20:00 100 /min [facility] Body temperature 2020-07-15 14:20:00 36.72 Anel [facility] Systolic blood pressure 2020-07-10 19:56:00 130 mm[Hg] [facility] Diastolic blood pressure 2020-07-10 19:56:00 81 mm[Hg] [facility] Heart rate 2020-07-10 19:56:00 87 /min [facility] Body temperature 2020-07-10 19:56:00 36.78 Anel [facility] Respiratory rate 2020-07-10 19:56:00 16 /min [facility] Body height 2020-07-10 19:56:00 170.2 cm [facility] Body weight 2020-07-10 19:56:00 111.613 kg [facility] BMI 2020-07-10 19:56:00 38.54 kg/m2 [facility] Systolic blood pressure 2020-07-06 19:35:00 132 mm[Hg] [facility] Diastolic blood pressure 2020-07-06 19:35:00 72 mm[Hg] [facility] Heart rate 2020-07-06 19:35:00 98 /min [facility] Body temperature 2020-07-06 19:35:00 36.78 Anel [facility] Respiratory rate 2020-07-06 19:35:00 16 /min [facility] Body height 2020-07-06 19:35:00 170.2 cm [facility] Body weight 2020-07-06 19:35:00 110.224 kg [facility] BMI 2020-07-06 19:35:00 38.06 kg/m2 [facility] Systolic blood pressure 2020-07-03 19:46:00 125 mm[Hg] [facility] [facility] Di[facility] blood pressure 2020-07-03 19:46:00 79 mm[Hg] [facility] Heart rate 2020-07-03 19:46:00 99 /min [facility] Body temperature 2020-07-03 19:46:00 36.89 Anel [facility] Respiratory rate 2020-07-03 19:46:00 16 /min [facility] Body height 2020-07-03 19:46:00 170.2 cm [facility] Body weight 2020-07-03 19:46:00 110.309 kg [facility] BMI 2020-07-03 19:46:00 38.09 kg/m2 [facility] Systolic blood pressure 2020-06-29 18:35:00 135 mm[Hg] [facility] Diastolic blood pressure 2020-06-29 18:35:00 71 mm[Hg] [facility] Heart rate 2020-06-29 18:35:00 94 /min [facility] Body temperature 2020-06-29 18:35:00 36.44 Anel [facility] Respiratory rate 2020-06-29 18:35:00 16 /min [facility] Body height 2020-06-29 18:35:00 170.2 cm [facility] Body weight 2020-06-29 18:35:00 109.487 kg [facility] BMI 2020-06-29 18:35:00 37.80 kg/m2 [facility] Systolic blood pressure 2020-06-26 19:04:00 137 mm[Hg] [facility] Diastolic blood pressure 2020-06-26 19:04:00 79 mm[Hg] [facility] Heart rate 2020-06-26 19:04:00 97 /min [facility] Body temperature 2020-06-26 19:04:00 36.89 Anel [facility] Respiratory rate 2020-06-26 19:04:00 16 /min [facility] Body height 2020-06-26 19:04:00 170.2 cm [facility] Body weight 2020-06-26 19:04:00 110.252 kg [facility] BMI 2020-06-26 19:04:00 38.07 kg/m2 [facility] Systolic blood pressure 2020-06-22 14:09:00 127 mm[Hg] [facility] Diastolic blood pressure 2020-06-22 14:09:00 72 mm[Hg] [facility] Heart rate 2020-06-22 14:09:00 94 /min [facility] Body temperature 2020-06-22 14:09:00 36.67 Anel [facility] Respiratory rate 2020-06-22 14:09:00 16 /min [facility] Body height 2020-06-22 14:09:00 170.2 cm [facility] Body weight 2020-06-22 14:09:00 108.977 kg [facility] BMI 2020-06-22 14:09:00 37.63 kg/m2 [facility] Heart rate 2020-06-13 23:55:00 105 /[facility] in Arterial blood by Pulse oximetry 2020-06-13 23:55:00 100 /min [facility] Systolic blood pressure 2020-06-13 23:30:00 138 mm[Hg] [facility] Diastolic blood pressure 2020-06-13 23:30:00 76 mm[Hg] [facility] Body temperature 2020-06-13 23:17:00 36.89 Anel [facility] Respiratory rate 2020-06-13 23:17:00 18 /min [facility] Body height 2020-06-13 23:17:00 170.2 cm [facility] Body weight 2020-06-13 23:17:00 108.773 kg [facility] BMI 2020-06-13 23:17:00 37.56 kg/m2 [facility] Systolic blood pressure 2020-06-06 00:45:00 146 mm[Hg] [facility] Diastolic blood pressure 2020-06-06 00:45:00 84 mm[Hg] [facility] Heart rate 2020-06-06 00:45:00 99 /min [facility] saturation in Arterial blood by Pulse oximetry 2020-06-06 00:45:00 100 /min [facility] Body temperature 2020-06-05 23:36:00 37.06 Anel [facility] Respiratory rate 2020-06-05 23:36:00 18 /min [facility] Body height 2020-06-05 23:36:00 170.2 cm [facility] Body weight 2020-06-05 23:36:00 109.045 kg [facility] BMI 2020-06-05 23:36:00 37.65 kg/m2 [facility] Heart rate 2020-05-31 02:00:00 99 /min [facility] Oxygen saturation in Arterial blood by Pulse oximetry 2020-05-31 01:45:00 99 /min [facility] Systolic blood pressure 2020-05-31 01:15:00 134 mm[Hg] [facility] Diastolic blood pressure 2020-05-31 01:15:00 70 mm[Hg] [facility] Body temperature 2020-05-31 01:15:00 36.83 Anel [facility] Respiratory rate 2020-05-31 01:15:00 20 /min [facility] Body height 2020-05-31 01:15:00 170.2 cm [facility] Body weight 2020-05-31 01:15:00 108.863 kg [facility] BMI 2020-05-31 01:15:00 37.59 kg/m2 [facility] Systolic blood pressure 2020-05-22 15:40:00 124 mm[Hg] [facility] Diastolic blood pressure 2020-05-22 15:40:00 72 mm[Hg] [facility] Heart rate 2020-05-22 15:40:00 90 /min [facility] Body temperature 2020-05-22 15:40:00 36.89 Anel [facility] Respiratory rate 2020-05-22 15:40:00 16 /min [facility] Body height 2020-05-22 15:40:00 170.2 cm [facility] Body weight 2020-05-22 15:40:00 107.134 kg [facility] BMI 2020-05-22 15:40:00 36.99 kg/m2 [facility] Systolic blood pressure 2020-05-08 14:33:00 127 mm[Hg] [facility] Diastolic blood pressure 2020-05-08 14:33:00 74 mm[Hg] [facility] Heart rate 2020-05-08 14:32:00 99 /min [facility] Body temperature 2020-05-08 14:32:00 36.61 Anel [facility] Respiratory rate 2020-05-08 14:32:00 16 /min [facility] Body height 2020-05-08 14:32:00 170.2 cm [facility] Body weight 2020-05-08 14:32:00 107.106 kg [facility] BMI 2020-05-08 14:32:00 36.98 kg/m2 [facility] Systolic blood pressure 2020-04-25 15:50:00 139 mm[Hg] [facility] Diastolic blood pressure 2020-04-25 15:50:00 83 mm[Hg] [facility] Heart rate 2020-04-25 15:06:00 111 /min [facility] Body temperature 2020-04-25 15:06:00 36.72 Anel [facility] Respiratory rate 2020-04-25 15:06:00 16 /min [facility] Body height 2020-04-25 15:06:00 170.2 cm [facility] Body weight 2020-04-25 15:06:00 106.17 kg [facility] BMI 2020-04-25 15:06:00 36.66 kg/m2 [facility] Systolic blood pressure 2020-04-20 16:25:00 123 mm[Hg] [facility] Diastolic blood pressure 2020-04-20 16:25:00 68 mm[Hg] [facility] Heart rate 2020-04-20 16:25:00 88 /min [facility] Body temperature 2020-04-20 16:25:00 36.61 Anel [facility] Respiratory rate 2020-04-20 16:25:00 16 /min [facility] Body height 2020-04-20 16:25:00 170.2 cm [facility] Body weight 2020-04-20 16:25:00 105.858 kg [facility] BMI 2020-04-20 16:25:00 36.55 kg/m2 [facility] Systolic blood pressure 2020-02-29 19:10:00 134 mm[Hg] [facility] Diastolic blood pressure 2020-02-29 19:10:00 80 mm[Hg] [facility] Heart rate 2020-02-29 19:10:00 100 /min [facility] Body temperature 2020-02-29 19:10:00 36.72 Anel [facility] Respiratory rate 2020-02-29 19:10:00 16 /min [facility] Body height 2020-02-29 19:10:00 170.2 cm [facility] Body weight 2020-02-29 19:10:00 100.018 kg [facility] BMI 2020-02-29 19:10:00 34.54 kg/m2 [facility] Systolic blood pressure 2020-02-01 19:50:00 138 mm[Hg] [facility] Diastolic blood pressure 2020-02-01 19:50:00 73 mm[Hg] [facility] Heart rate 2020-02-01 19:50:00 86 /min [facility] Body temperature 2020-02-01 19:50:00 36.83 Anel [facility] Respiratory rate 2020-02-01 19:50:00 16 /min [facility] Body height 2020-02-01 19:50:00 170.2 cm [facility] Body weight 2020-02-01 19:50:00 98.544 kg [facility] BMI 2020-02-01 19:50:00 34.03 kg/m2 [facility] Systolic blood pressure 2020-01-04 20:39:00 135 mm[Hg] [facility] Diastolic blood pressure 2020-01-04 20:39:00 75 mm[Hg] [facility] Heart rate 2020-01-04 20:38:00 94 /min [facility] Body temperature 2020-01-04 20:38:00 36.5 Anel [facility] Respiratory rate 2020-01-04 20:38:00 16 /min [facility] Body height 2020-01-04 20:38:00 170.2 cm [facility] Body weight 2020-01-04 20:38:00 99.139 kg [facility] BMI 2020-01-04 20:38:00 34.23 kg/m2 [facility] Systolic blood pressure 2019-12-03 20:12:00 128 mm[Hg] [facility] Diastolic blood pressure 2019-12-03 20:12:00 68 mm[Hg] [facility] Heart rate 2019-12-03 19:16:00 90 /min [facility] Body temperature 2019-12-03 19:16:00 36.61 Anel [facility] Respiratory rate 2019-12-03 19:16:00 18 /min [facility] Body height 2019-12-03 19:16:00 170.2 cm [facility] Body weight 2019-12-03 19:16:00 102.059 kg [facility] BMI 2019-12-03 19:16:00 35.24 kg/m2 [facility] Oxygen saturation in Arterial blood by Pulse oximetry 2019-12-03 19:16:00 100 /min [facility] Systolic blood pressure 2019-03-12 20:41:00 132 mm[Hg] [facility] Diastolic blood pressure 2019-03-12 20:41:00 73 mm[Hg] [facility] Heart rate 2019-03-12 20:41:00 95 /min [facility] Body temperature 2019-03-12 20:41:00 36.78 Anel [facility] Respiratory rate 2019-03-12 20:41:00 16 /min [facility] Body height 2019-03-12 20:41:00 170.2 cm [facility] Body weight 2019-03-12 20:41:00 89.841 kg [facility] BMI 2019-03-12 20:41:00 31.02 kg/m2 [facility] Systolic blood pressure 2019-03-12 20:41:00 132 mm[Hg] [facility] Diastolic blood pressure 2019-03-12 20:41:00 73 mm[Hg] [facility] Heart rate 2019-03-12 20:41:00 95 /min [facility] Body temperature 2019-03-12 20:41:00 36.78 Anel [facility] Respiratory rate 2019-03-12 20:41:00 16 /min [facility] Body height 2019-03-12 20:41:00 170.2 cm [facility] Body weight 2019-03-12 20:41:00 89.841 kg [facility] BMI 2019-03-12 20:41:00 31.02 kg/m2 [facility] Systolic blood pressure 2018-11-02 14:26:00 113 mm[Hg] [facility] Diastolic blood pressure 2018-11-02 14:26:00 67 mm[Hg] [facility] Heart rate 2018-11-02 14:26:00 50 /min [facility] Body temperature 2018-11-02 14:26:00 36.61 Anel [facility] Respiratory rate 2018-11-02 14:26:00 16 /min [facility] Body height 2018-11-02 14:26:00 170.2 cm [facility] Body weight 2018-11-02 14:26:00 86.779 kg [facility] BMI 2018-11-02 14:26:00 29.96 kg/m2 [facility] Systolic blood pressure 2018-10-13 13:00:00 125 mm[Hg] [facility] Diastolic blood pressure 2018-10-13 13:00:00 68 mm[Hg] [facility] Heart rate 2018-10-13 13:00:00 69 /min [facility] Body temperature 2018-10-13 13:00:00 36.83 Anel [facility] Respiratory rate 2018-10-13 13:00:00 18 /min [facility] Oxygen saturation in Arterial blood by Pulse oximetry 2018-10-13 13:00:00 98 /min [facility] Body height 2018-10-11 14:30:00 170.2 cm [facility] Body weight 2018-10-11 14:30:00 96.48 kg [facility] BMI 2018-10-11 14:30:00 33.31 kg/m2 [facility] Systolic blood pressure 2018-10-07 16:39:00 129 mm[Hg] [facility] Diastolic blood pressure 2018-10-07 16:39:00 71 mm[Hg] [facility] Heart rate 2018-10-07 16:39:00 86 /min [facility] Body temperature 2018-10-07 16:39:00 36.67 Anel [facility] Respiratory rate 2018-10-07 16:39:00 16 /min [facility] Body height 2018-10-07 16:39:00 170.2 cm [facility] Body weight 2018-10-07 16:39:00 96.673 kg [facility] BMI 2018-10-07 16:39:00 33.38 kg/m2 [facility] Systolic blood pressure 2018-09-30 15:59:00 125 mm[Hg] [facility] Diastolic blood pressure 2018-09-30 15:59:00 70 mm[Hg] [facility] Heart rate 2018-09-30 15:59:00 82 /min [facility] Body temperature 2018-09-30 15:59:00 36.17 Anel [facility] Respiratory rate 2018-09-30 15:59:00 16 /min [facility] Body height 2018-09-30 15:59:00 170.2 cm [facility] Body weight 2018-09-30 15:59:00 97.58 kg [facility] BMI 2018-09-30 15:59:00 33.69 kg/m2 [facility] Systolic blood pressure 2018-09-28 17:05:00 123 mm[Hg] [facility] Diastolic blood pressure 2018-09-28 17:05:00 75 mm[Hg] [facility] Heart rate 2018-09-28 17:05:00 106 /min [facility] Respiratory rate 2018-09-28 17:05:00 18 /min [facility] Body height 2018-09-28 17:05:00 170.2 cm [facility] Body weight 2018-09-28 17:05:00 95.618 kg [facility] BMI 2018-09-28 17:05:00 33.02 kg/m2 [facility] Oxygen saturation in Arterial blood by Pulse oximetry 2018-09-28 17:05:00 98 /min [facility] Systolic blood pressure 2018-09-23 14:12:00 132 mm[Hg] [facility] Diastolic blood pressure 2018-09-23 14:12:00 73 mm[Hg] [facility] Heart rate 2018-09-23 14:12:00 99 /min [facility] Body temperature 2018-09-23 14:12:00 36.39 Anel [facility] Respiratory rate 2018-09-23 14:12:00 16 /min [facility] Body height 2018-09-23 14:12:00 170.2 cm [facility] Body weight 2018-09-23 14:12:00 95.482 kg [facility] BMI 2018-09-23 14:12:00 32.97 kg/m2 [facility] Procedures Procedure Date / Time Performed Performing Clinician Source CBC WITH DIFF 2020-07-16 10:20:00 Evelin Mckeon [facility] CBC WITH DIFF 2020-07-16 10:20:00 Evelin Mckeon [facility] TUBAL LIGATION 2020-07-15 22:29:00 Kate Rome [facility] VENOUS CORD GAS 2020-07-15 14:21:00 Evelyn San [facility] VENOUS CORD GAS 2020-07-15 14:21:00 Evelyn San [facility] POCT GLUCOSE (AUTOMATED) 2020-07-15 11:56:00 Ome Naomi richardson [facility] POCT GLUCOSE (AUTOMATED) 2020-07-15 11:56:00 Ome Naomi richardson [facility] POCT GLUCOSE (AUTOMATED) 2020-07-15 08:10:00 Ome Naomi richardson [facility] POCT GLUCOSE (AUTOMATED) 2020-07-15 08:10:00 Ome Naomi richardson [facility] URINALYSIS 2020-07-15 06:21:00 Evelyn San [facility] PROTEIN CREAT RATIO URINE RANDOM 2020-07-15 06:21:00 Evelyn San [facility] URINALYSIS 2020-07-15 06:21:00 Evelyn San [facility] PROTEIN CREAT RATIO URINE RANDOM 2020-07-15 06:21:00 Evelyn San [facility] POCT GLUCOSE (AUTOMATED) 2020-07-15 04:48:00 Ome re Naomi [facility] POCT GLUCOSE (AUTOMATED) 2020-07-15 04:48:00 Ome re Naomi [facility] HB ABO GROUPING 2020-07-15 04:42:00 Evelyn San [facility] RHO (D) IMMUNE GLOBULIN 2020-07-15 04:42:00 Daylin Mckeon [facility] HB ABO GROUPING 2020-07-15 04:42:00 Evelyn San [facility] RHO (D) IMMUNE GLOBULIN 2020-07-15 04:42:00 Daylin Mckeon [facility] SGOT (ASPARTATE AMINO TRANSFER) 2020-07-15 04:40:00 Evelyn San [facility] CREATININE 2020-07-15 04:40:00 Evelyn San [facility] ALANINE AMINO TRANSFERASE(SGPT 2020-07-15 04:40:00 Evelyn San [facility] LACTATE DEHYDROGENASE 2020-07-15 04:40:00 Saurabh San [facility] URIC ACID 2020-07-15 04:40:00 Evelyn San [facility] CBC WITH DIFF 2020-07-15 04:40:00 Evelyn San [facility] HEPATITIS B SURFACE ANTIGEN 2020-07-15 04:40:00 Evelyn San [facility] HIV 1/2 AG-AB WITH REFLEX 2020-07-15 04:40:00 Evelyn San [facility] GALV ONLY - SYPHILIS IGG/IGM 2020-07-15 04:40:00 Evelyn San [facility] SGOT (ASPARTATE AMINO TRANSFER) 2020-07-15 04:40:00 Evelyn San [facility] CREATININE 2020-07-15 04:40:00 Evelyn San [facility] ALANINE AMINO TRANSFERASE(SGPT 2020-07-15 04:40:00 Evelyn San [facility] LACTATE DEHYDROGENASE 2020-07-15 04:40:00 Saurabh San [facility] URIC ACID 2020-07-15 04:40:00 Evelyn San [facility] CBC WITH DIFF 2020-07-15 04:40:00 Evelyn San [facility] HEPATITIS B SURFACE ANTIGEN 2020-07-15 04:40:00 Evelyn San [facility] HIV 1/2 AG-AB WITH REFLEX 2020-07-15 04:40:00 Evelyn San [facility] GALV ONLY - SYPHILIS IGG/IGM 2020-07-15 04:40:00 Evelyn San [facility] COVID-19 (ID NOW RAPID TESTING) 2020-07-15 02:48:[address] [facility] COVID-19 (ID NOW RAPID TESTING) 2020-07-15 02:48:[address] [facility] LAB ONLY COVID INTERPRETATION 2020-07-15 02:48:[address] [facility] [facility] NON-STRESS TEST 2020-07-10 21:44:58 Jesús Lugo [facility] POCT URINALYSIS 2020-07-10 19:59:00 Lizette Lugo [facility] HOSPITAL ADMISSION 2020-07-08 05:01:00 Doctor Un assigned, [place] [facility] HOSPITAL ADMISSION 2020-07-08 05:01:00 Doctor Un assigned, [place] [facility] NON-STRESS TEST 2020-07-07 03:07:40 Aster Nava [facility] POCT URINALYSIS 2020-07-06 19:43:00 Lizette Lugo [facility] PATIENT QUESTIONNAIRE 2020-07-06 05:01:00 Doctor Unassigned, [place] [facility] PATIENT QUESTIONNAIRE 2020-07-06 05:01:00 Doctor Unassigned, [place] [facility] NON-STRESS TEST 2020-07-03 20:39:49 Jesús Lugo [facility] POCT URINALYSIS 2020-07-03 19:47:00 Lizette Lugo [facility] NON-STRESS TEST 2020-06-30 01:17:10 Aster Nava [facility] URINE CULTURE 2020-06-29 19:17:00 [facility] 2020-06-29 18:38:00 Lizette uLgo [facility] NON-STRESS TEST 2020-06-26 20:00:14 Jesús Lugo [facility] POCT URINALYSIS 2020-06-26 19:07:00 Lizette Lugo [facility] POCT URINALYSIS 2020-06-22 14:10:00 Lizette Lugo [facility] COVID-19 (ID NOW RAPID TESTING) 2020-06-13 23:40:00 Jaclyn Duval [facility] POCT GLUCOSE (AUTOMATED) 2020-06-13 23:39:00 Jaclyn Duval [facility] NOTICE OF PRIVACY PRACTICES 2020-06-13 23:05:21 Doctor Unassigned, [place] [facility] CONSENT/REFUSAL FOR DIAGNOSIS AND TREATMENT 2020-06-13 23:05:08 Doctor Unassigned, [place] [facility] CONSENT/REFUSAL FOR DIAGNOSIS AND TREATMENT 2020-06-05 23:13:27 Doctor Unassigned, [place] [facility] ASSIGNMENT OF BENEFITS 2020-05-31 00:57:40 Docto r Unassigned, [place] [facility] CONSENT/REFUSAL FOR DIAGNOSIS AND TREATMENT 2020-05-31 00:57:15 Doctor Unassigned, [place] [facility] POCT URINALYSIS 2020-05-22 15:41:00 Lizette Lugo [facility] PATIENT QUESTIONNAIRE 2020-05-22 05:01:00 Doctor Unassigned, [place] [facility] POCT URINALYSIS 2020-05-08 14:47:00 Lizette Lugo [facility] TDAP VACCINE, >11 YRS, IM 2020-05-08 14:31:42 Lizette Lugo [facility] STERILIZATION CONSENT FORM 2020-05-08 05:01:00 Doctor Unassigned, [place] [facility] POCT URINALYSIS 2020-04-20 16:26:00 Lizette Lugo [facility] POCT URINALYSIS 2020-02-29 19:14:00 Lizette Lugo [facility] CONSENT FOR SERUM MARKER SCREENING 2020-02-29 06:01:00 Doctor Unassigned, [place] [facility] POCT URINALYSIS 2020-02-01 20:26:00 Dayday Graham [facility] FIRST TRIMESTER ULTRASOUND 2020-01-26 19:45:00 Dayday Graham [facility] HB ABO GROUPING 2019-12-03 20:30:00 Paul Arevalo [facility] GLUCOSE 1 HOUR POST PRANDIAL 2019-12-03 20:29:00 Mickey [facility] THYROID STIMULATING HORMONE 2019-12-03 20:29:00 Mickey [facility] COMP. METABOLIC PANEL (13536) 2019-12-03 20:29:00 [facility]FF 2019-12-03 20:29:00 Paul Arevalo [facility] HEPATITIS B SURFACE ANTIGEN 2019-12-03 20:29:00 Mickey [facility] URINE CULTURE 2019-12-03 20:29:00 Paul Arevalo [facility] HIV 1/2 AG-AB WITH REFLEX 2019-12-03 20:29:00 Ryan wasserman [facility] SARS-COV-2 IGG 2019-12-03 20:29:00 [facility] 2019-12-03 00:00:00 [facility] 2019-12-03 00:00:00 Elin Arevalo [facility] CONSENT/REFUSAL FOR DIAGNOSIS AND TREATMENT 2019-11-29 02:29:26 Doctor Unassigned, [place] [facility] CONSENT/REFUSAL FOR DIAGNOSIS AND TREATMENT 2019-03-12 20:07:12 Doctor Unassigned, [place] [facility] ASSIGNMENT OF BENEFITS 2019-03-12 20:06:52 Docto r Unassigned, [place] [facility] CBC WITH DIFFERENTIAL 2018-10-13 09:05:00 Saurabh San [facility] VENOUS CORD GAS 2018-10-12 05:36:00 Agustina Cooney [facility] POCT GLUCOSE (AUTOMATED) 2018-10-12 02:07:00 Coleen Blandon [facility] HEPATITIS B SURFACE ANTIGEN 2018-10-11 16:54:00 Agustina Cooney [facility] TYPE AND SCREEN 2018-10-11 16:54:00 Agustina Cooney [facility] GALV ONLY - SYPHILIS IGG/IGM 2018-10-11 16:54:00 Agustina Cooney [facility] HOSPITAL ADMISSION 2018-10-11 05:01:00 Doctor Un assigned, [place] [facility] POCT URINALYSIS W/O SPECIFIC GRAVITY 2018-10-07 16:43:00 Lizette Lugo [facility] POCT URINALYSIS GLUCOSE & PROTEIN 2018-09-30 16:00:00 Dayday Graham [facility] CONSENT/REFUSAL FOR DIAGNOSIS AND TREATMENT 2018-09-28 05:01:00 Doctor Unassigned, [place] [facility] POCT URINALYSIS W/O SPECIFIC GRAVITY 2018-09-23 14:15:00 Lizette Lugo [facility] Encounters Start Date/Time End Date/Time Encounter Type Admission Type Attending [facility] Care Facility Care Department Encounter ID Source 2020-12-17 20:44:03 Outpatient P [facility] [id number] [facility] 2020-12-17 15:42:38 Outpatient P [facility] [id number] [facility] 2020-12-17 15:42:20 Outpatient P [facility] [id number] [facility] 2020-12-17 12:42:32 Outpatient P [facility] [id number] [facility] 2020-12-17 12:42:20 Outpatient P [facility] [id number] [facility] 2020-12-06 10:30:00 2020-12-06 10:30:00 Outpatient R LIZETTE LUGO [facility] [id number] [facility] 2020-09-04 00:00:00 2020-09-04 00:00:00 Telephone Lizette Lugo [facility] FOREMAN OR SUPERVISOR AND OPERATOR [facility] & CHILD [facility] 1..840.114 350.1.13.10 4.2.7.2.686 [id number] 107 [id number] [facility] 2020-08-30 08:10:27 2020-08-30 08:55:14 Office Visit Lizette Lugo [place] FOREMAN OR SUPERVISOR AND OPERATOR [facility] & CHILD [facility] 1..840.114 350.1.13.10 4.2.7.2.686 [id number] [facility] 2020-08-30 08:15:00 2020-08-30 08:15:00 Outpatient R LIZETTE LUGO [facility] [id number] [facility] 2020-08-07 09:02:18 2020-08-07 09:17:18 Routine Visit Lizette Lugo [facility] FOREMAN OR SUPERVISOR AND OPERATOR [facility] & CHILD [facility] 1..840.114 350.1.13.10 4.2.7.2.686 [id number] [facility] 2020-08-07 09:15:00 2020-08-07 09:15:00 Outpatient R LIZETTE LUGO [facility] [id number] [facility] 2020-07-20 15:00:00 2020-07-20 15:00:00 Outpatient R [facility] [id number] [facility] 2020-07-18 14:30:00 2020-07-18 14:30:00 Outpatient R [facility] [id number] [facility] 2020-07-14 21:46:00 2020-07-16 14:09:00 Hospital Encounter Naomi Souza [facility] 1..840.114 350.1.13.10 4.2.7.2.686 [id number] [facility] 2020-07-15 11:50:00 2020-07-15 13:16:00 Surgery Kate Rome [facility] 1..840.114 350.1.13.10 4.2.7.2.686 [id number] [facility] 2020-07-13 14:00:00 2020-07-13 14:00:00 Outpatient R [facility] [id number] [facility] 2020-07-10 14:39:24 2020-07-10 15:42:26 Routine Visit Lizette Lugo [facility] FOREMAN OR SUPERVISOR AND OPERATOR [facility]NAL & CHILD [facility] 1.840.114 350.1.13.10 4.2.7.2.686 [id number] 107 [id number] [facility] 2020-07-10 14:30:00 2020-07-10 14:30:00 Outpatient R [facility] [id number] [facility] 2020-07-06 13:51:59 2020-07-06 15:15:19 Routine Visit Risk, Ang-Rmchp-N p/High Mary Grace Nava [facility] FOREMAN OR SUPERVISOR AND OPERATOR [facility]NAL & CHILD [facility] 1.2.840.114 350.1.13.10 4.2.7.2.686 [id number] [facility] 2020-07-06 14:00:00 2020-07-06 14:00:00 Outpatient R [facility] [id number] [facility] 2020-07-04 00:00:00 2020-07-04 00:00:00 Telephone Lizette Lugo [facility] FOREMAN OR SUPERVISOR AND OPERATOR [facility] & CHILD [facility] 1.2.840.114 350.1.13.10 4.2.7.2.686 [id number] [facility] 2020-07-04 00:00:00 2020-07-04 00:00:00 Abstract Lizette Lugo [facility] FOREMAN OR SUPERVISOR AND OPERATOR [facility] CHILD [facility] 1.2.840.114 350.1.13.10 4.2.7.2.686 [id number] 107 [id number] [facility] 2020-07-03 14:35:38 2020-07-03 15:23:50 Routine Visit Lizette Lugo [facility] FOREMAN OR SUPERVISOR AND OPERATOR [facility] CHILD [facility] 1.2.840.114 350.1.13.10 4.2.7.2.686 [id number] [facility] 2020-07-03 14:45:00 2020-07-03 14:45:00 Outpatient R [facility] [id number] [facility] 2020-07-03 14:15:12 2020-07-03 14:34:18 Human Resources File Clerk Visit Ultrasound, Dion Burdick [facility] FOREMAN OR SUPERVISOR AND OPERATOR [facility] & CHILD [facility] 1.2.840.114 350.1.13.10 4.2.7.2.686 [id number] [facility] 2020-06-29 13:24:41 2020-06-29 14:19:29 Routine Visit Risk, Ang-Rmchp-N p/High Nava, Mary Grace L [facility] FOREMAN OR SUPERVISOR AND OPERATOR [facility] & CHILD [facility] 1.2.840.114 350.1.13.10 4.2.7.2.686 [id number] [facility] 2020-06-29 14:00:00 2020-06-29 14:00:00 Outpatient R [facility] [id number] [facility] 2020-06-26 13:50:58 2020-06-26 14:52:08 Routine Visit Lizette Lugo [facility] FOREMAN OR SUPERVISOR AND OPERATOR [facility]NAL & CHILD [facility] 1..840.114 350.1.13.10 4.2.7.2.686 [id number] 107 [id number] [facility] 2020-06-26 14:00:00 2020-06-26 14:00:00 Outpatient R [facility] [id number] [facility] 2020-06-22 08:49:16 2020-06-22 09:53:49 Routine Visit Risk, Ang-Rmchp-N p/High Mary Grace Nava [facility] FOREMAN OR SUPERVISOR AND OPERATOR [facility] & CHILD [facility] 1..840.114 350.1.13.10 4.2.7.2.686 [id number] [facility] 2020-06-22 09:00:00 2020-06-22 09:00:00 Outpatient R [facility] [id number] [facility] 2020-06-22 00:00:00 2020-06-22 00:00:00 Telephone Lizette Lugo [facility] FOREMAN OR SUPERVISOR AND OPERATOR [facility] & CHILD [facility] 1..840.114 350.1.13.10 4.2.7.2.686 [id number] 107 [id number] [facility] 2020-06-20 10:00:00 2020-06-20 10:00:00 Outpatient R TONIO ECHOLS [facility] [id number] [facility] 2020-06-13 18:04:00 2020-06-13 19:07:00 Hospital Encounter Jaclyn Duval [facility] 1.2.840.114 350.1.13.10 4.2.7.2.686 [id number] [facility] 2020-06-08 08:30:00 2020-06-08 08:30:00 Outpatient R [facility] [id number] [facility] 2020-06-05 18:10:00 2020-06-05 20:23:00 Hospital Encounter Jaclyn Duval Radha [facility] 1.2.840.114 350.1.13.10 4.2.7.2.686 [id number] [facility] 2020-06-05 00:00:00 2020-06-05 00:00:00 Telephone Risk, Juan-Rmchp-N p/High [facility] FOREMAN OR SUPERVISOR AND OPERATOR [facility] 1.2.840.114 350.1.13.10 4.2.7.2.686 [id number] [facility] 2020-06-05 00:00:00 2020-06-05 00:00:00 Orders Only Doctor Unassigned, [place] [facility] 1.2.840.114 350.1.13.10 4.2.7.2.686 [id number] [facility] 2020-05-30 19:58:00 2020-05-30 21:25:00 Hospital Encounter Radha Mehta [facility] 1.2.840.114 350.1.13.10 4.2.7.2.686 [id number] [facility] 2020-05-30 00:00:00 2020-05-30 00:00:00 Orders Only Doctor Unassigned, [place] [facility] 1.2.840.114 350.1.13.10 4.2.7.2.686 [id number] [facility] 2020-05-23 10:00:00 2020-05-23 10:00:00 Outpatient ARSALAN BLANDON [facility] [id number] [facility] 2020-05-22 10:26:59 2020-05-22 10:58:34 Routine Visit Lizette Lugo [facility] FOREMAN OR SUPERVISOR AND OPERATOR [facility] & CHILD [facility] 1.2840.114 350.1.13.10 4.2.7.2.686 [id number] [facility] 2020-05-22 09:45:00 2020-05-22 09:45:00 Outpatient R LIZETTE LUGO [facility] [id number] [facility] 2020-05-22 00:00:00 2020-05-22 00:00:00 Orders Only Doctor Unassigned, [place] [facility] 1.840.114 350.1.13.10 4.2.7.2.686 [id number] [facility] 2020-05-09 00:00:00 2020-05-09 00:00:00 Patient Outreach Arsalan Blandon [facility] 1.84.114 350.1.13.10 4.2.7.2.686 [id number] [facility] 2020-05-08 08:47:27 2020-05-08 10:56:07 Routine Visit Lizette Lugo [facility] FOREMAN OR SUPERVISOR AND OPERATOR [facility] CHILD [facility] 1.84.114 350.1.13.10 4.2.7.2.686 [id number] 107 [id number] [facility] 2020-05-08 09:00:00 2020-05-08 09:00:00 Outpatient DAYDAY ROBLES [facility] [id number] [facility] 2020-05-08 09:00:00 2020-05-08 09:00:00 Outpatient R LIZETTE LUGO [facility] [id number] [facility] 2020-05-08 00:00:00 2020-05-08 00:00:00 Orders Only Doctor Unassigned, [place] [facility] 1..114 350.1.13.10 4.2.7.2.686 [id number] [facility] 2020-05-04 00:00:00 2020-05-04 00:00:00 Telephone Lizette Lugo [facility] FOREMAN OR SUPERVISOR AND OPERATOR [facility] & CHILD [facility] 1..114 350.1.13.10 4.2.7.2.686 [id number] 107 [id number] [facility] 2020-05-03 07:46:58 2020-05-03 08:01:58 Human Resources File Clerk Visit Lab, [facility] Dayday Graham [facility] FOREMAN OR SUPERVISOR AND OPERATOR [facility] & CHILD [facility] 1..114 350.1.13.10 4.2.7.2.686 [id number] [facility] 2020-05-03 07:45:00 2020-05-03 07:45:00 Outpatient R DAYDAY GRAHAM [facility] [id number] [facility] 2020-04-26 00:00:00 2020-04-26 00:00:00 Telephone Lizette Lugo [facility] FOREMAN OR SUPERVISOR AND OPERATOR [facility] & CHILD [facility] ..114 350.1.13.10 4.2.7.2.686 [id number] 107 [id number] [facility] 2020-04-25 08:55:43 2020-04-25 09:34:31 Routine Visit Lizette Lugo Emily N [facility] FOREMAN OR SUPERVISOR AND OPERATOR [facility] & CHILD [facility] 1..114 350.1.13.10 4.2.7.2.686 [id number] [facility] 2020-04-25 09:15:00 2020-04-25 09:15:00 Outpatient R DAYDAY GRAHAM [facility] [id number] [facility] 2020-04-21 00:00:00 2020-04-21 00:00:00 Telephone Dayday Graham [facility] FOREMAN OR SUPERVISOR AND OPERATOR [facility] & CHILD [facility] 1.840.114 350.1.13.10 4.2.7.2.686 [id number] 107 [id number] [facility] 2020-04-20 10:18:39 2020-04-20 10:46:55 Routine Visit Risk, Jefferychp-N p/High Tara Harvey [facility] FOREMAN OR SUPERVISOR AND OPERATOR [facility] & CHILD [facility] 1.840.114 350.1.13.10 4.2.7.2.686 [id number] [facility] 2020-04-20 10:30:00 2020-04-20 10:30:00 Outpatient R [facility] [id number] [facility] 2020-04-15 00:00:00 2020-04-15 00:00:00 Patient Secure Msg Doctor Unassigned, [place] [facility] 1.84.114 350.1.13.10 4.2.7.2.686 [id number] [facility] 2020-04-06 10:00:00 2020-04-06 10:00:00 Outpatient R [facility] [id number] [facility] 2020-03-28 11:00:00 2020-03-28 11:00:00 Outpatient R LIZETTE LUGO [facility] [id number] [facility] 2020-03-09 13:52:50 2020-03-09 15:07:50 Human Resources File Clerk Visit Ultrasound, Tamiko Russell [facility] FOREMAN OR SUPERVISOR AND OPERATOR [facility] & CHILD [facility] 1.84.114 350.1.13.10 4.2.7.2.686 [id number] [facility] 2020-03-09 14:00:00 2020-03-09 14:00:00 Outpatient P [facility] [id number] [facility] 2020-02-29 12:58:27 2020-02-29 13:26:41 Routine Visit Lizette Lugo [facility] FOREMAN OR SUPERVISOR AND OPERATOR [facility] & CHILD [facility] 1.2840.114 350.1.13.10 4.2.7.2.686 [id number] [facility] 2020-02-29 13:00:00 2020-02-29 13:00:00 Outpatient R LIZETTE LUGO [facility] [id number] [facility] 2020-02-29 00:00:00 2020-02-29 00:00:00 Orders Only Doctor Unassigned, [place] [facility] 1.840.114 350.1.13.10 4.2.7.2.686 [id number] [facility] 2020-02-22 00:00:00 2020-02-22 00:00:00 Patient Secure Msg Doctor Unassigned, [place] [facility] FOREMAN OR SUPERVISOR AND OPERATOR [facility] & CHILD [facility] 1.840.114 350.1.13.10 4.2.7.2.686 [id number] [facility] 2020-02-01 13:43:05 2020-02-01 14:05:32 Routine Visit Dayday Graham [facility] FOREMAN OR SUPERVISOR AND OPERATOR [facility] & CHILD [facility] 1.2840.114 350.1.13.10 4.2.7.2.686 [id number] [facility] 2020-02-01 14:00:00 2020-02-01 14:00:00 Outpatient R DAYDAY GRAHAM [facility] [id number] [facility] 2020-01-26 13:20:33 2020-01-26 13:52:11 Human Resources File Clerk Visit Ultrasound, Tamiko Russell [facility] FOREMAN OR SUPERVISOR AND OPERATOR [facility] & CHILD [facility] 1.2.840.114 350.1.13.10 4.2.7.2.686 [id number] [facility] 2020-01-26 13:30:00 2020-01-26 13:30:00 Outpatient P [facility] [id number] [facility] 2020-01-21 00:00:00 2020-01-21 00:00:00 Patient Secure Msg Doctor Unassigned, [place] [facility] FOREMAN OR SUPERVISOR AND OPERATOR [facility] & CHILD [facility] 1.2.840.114 350.1.13.10 4.2.7.2.686 [id number] [facility] 2020-01-21 00:00:00 2020-01-21 00:00:00 Telephone Dayday Graham [facility] FOREMAN OR SUPERVISOR AND OPERATOR [facility] & CHILD [facility] 1.2.840.114 350.1.13.10 4.2.7.2.686 [id number] [facility] 2020-01-17 00:00:00 2020-01-17 00:00:00 Patient Secure Msg Doctor Unassigned, [place] [facility] FOREMAN OR SUPERVISOR AND OPERATOR [facility] & CHILD [facility] 1.2.840.114 350.1.13.10 4.2.7.2.686 [id number] [facility] 2020-01-04 14:10:07 2020-01-04 14:25:07 Routine Visit Dayday Graham [facility] FOREMAN OR SUPERVISOR AND OPERATOR [facility] & CHILD [facility] 1.2.840.114 350.1.13.10 4.2.7.2.686 [id number] [facility] 2020-01-04 14:15:00 2020-01-04 14:15:00 Outpatient R DAYDAY GRAHAM [facility] [id number] [facility] 2019-12-08 00:00:00 2019-12-08 00:00:00 Patient Secure Msg Doctor Unassigned, [place] [facility] FOREMAN OR SUPERVISOR AND OPERATOR [facility] CHILD [facility] 1.20.114 350.1.13.10 4.2.7.2.686 [id number] [facility] 2019-12-08 00:00:00 2019-12-08 00:00:00 Patient Secure Msg Doctor Unassigned, [place] [facility] FOREMAN OR SUPERVISOR AND OPERATOR [facility] CHILD [facility] 1.20.114 350.1.13.10 4.2.7.2.686 [id number] [facility] 2019-12-03 13:57:53 2019-12-03 15:53:08 Initial Visit Paul Arevalo [facility] FOREMAN [facility] 1..114 350.1.13.10 4.2.7.2.686 [id number] [facility] 2019-12-03 14:00:00 2019-12-03 14:00:00 Outpatient PAUL JIMENEZ [facility] [id number] [facility] 2019-11-28 00:00:00 2019-11-28 00:00:00 Orders Only Doctor Unassigned, [place] [facility] 1.114 350.1.13.10 4.2.7.2.686 [id number] [facility] 2019-06-05 12:52:00 2019-06-07 06:25:28 Inpatient [facility]ERS [id number] [facility] 2019-05-12 09:15:00 2019-05-12 09:15:00 Outpatient theresa TAVERAS [id number] [facility] 2019-03-12 14:09:29 2019-03-12 15:05:26 Office Visit Lizette Lugo [facility] FOREMAN OR SUPERVISOR AND OPERATOR [facility] & CHILD [facility] 1.2.840.114 350.1.13.10 4.2.7.2.686 [id number] 2019-03-12 14:09:29 2019-03-12 15:05:26 Office Visit Lizette Lugo [facility] FOREMAN OR SUPERVISOR AND OPERATOR [facility] & CHILD [facility] 1.2.840.114 350.1.13.10 4.2.7.2.686 [id number] [facility] 2019-03-12 00:00:00 2019-03-12 00:00:00 Orders Only Doctor Unassigned, [place] [facility] 1.2.840.114 350.1.13.10 4.2.7.2.686 [id number] [facility] 2019-03-11 00:00:00 2019-03-11 00:00:00 Telephone Lizette Lugo [facility] FOREMAN OR SUPERVISOR AND OPERATOR [facility] & CHILD [facility] 1.2.840.114 350.1.13.10 4.2.7.2.686 [id number] [facility] 2018-11-02 09:19:45 2018-11-02 10:10:06 Routine Visit Lizette Lugo [facility] FOREMAN OR SUPERVISOR AND OPERATOR [facility] & CHILD [facility] 1.2.840.114 350.1.13.10 4.2.7.2.686 [id number] [facility] 2018-10-11 09:10:00 2018-10-13 13:48:00 Hospital Encounter Altagracia Blandon [facility] 1.2.840.114 350.1.13.10 4.2.7.2.686 [id number] [facility] 2018-10-11 00:00:00 2018-10-11 00:00:00 Orders Only Doctor Unassigned, [place] [facility] 1.2.840.114 350.1.13.10 4.2.7.2.686 [id number] [facility] 2018-10-07 10:46:28 2018-10-07 11:49:44 Routine Visit Lizette Lugo Emily N [facility] FOREMAN OR SUPERVISOR AND OPERATOR [facility] & CHILD [facility] 1.2.840.114 350.1.13.10 4.2.7.2.686 [id number] [facility] 2018-09-30 10:52:31 2018-09-30 11:16:08 Routine Visit Dayday Graham [facility] FOREMAN OR SUPERVISOR AND OPERATOR [facility] & CHILD [facility] 1.2.840.114 350.1.13.10 4.2.7.2.686 [id number] [facility] 2018-09-28 11:23:00 2018-09-28 13:27:00 Hospital Encounter Yas Hilario [facility] 1.2.840.114 350.1.13.10 4.2.7.2.686 [id number] [facility] 2018-09-28 00:00:00 2018-09-28 00:00:00 Nurse Triage Virginie Sutton [facility] 1.2.840.114 350.1.13.10 4.2.7.2.686 [id number] [facility] 2018-09-28 00:00:00 2018-09-28 00:00:00 Patient Secure Msg Lizette Lugo [facility] FOREMAN OR SUPERVISOR AND OPERATOR [facility] CHILD [facility] 1.2.840.114 350.1.13.10 4.2.7.2.686 [id number] [facility] 2018-09-24 00:00:00 2018-09-24 00:00:00 Telephone Lizette Lugo [facility] FOREMAN OR SUPERVISOR AND OPERATOR [facility]ILD [facility] 1.2.840.114 350.1.13.10 4.2.7.2.686 [id number] 107 [id number] [facility] 2018-09-24 00:00:00 2018-09-24 00:00:00 Patient Secure Msg Lizette Lugo [facility] FOREMAN OR SUPERVISOR AND OPERATOR [facility]ILD [facility] 1.2.840.114 350.1.13.10 4.2.7.2.686 [id number] [facility] 2018-09-23 08:57:20 2018-09-23 10:50:36 Routine Visit Lizette Lugo [facility] FOREMAN OR SUPERVISOR AND OPERATOR [facility] 1.2.840.114 350.1.13.10 4.2.7.2.686 [id number] [facility] 2018-08-14 00:00:00 2018-08-14 00:00:00 Patient Secure Doctor Unassigned, [place] [facility] 1.2.840.114 350.1.13.10 4.2.7.2.686 [id number] [facility] Results Test Description Test Time Test Comments [...] COVID-19 testing the patient has had at [facility], including molecular NAAT testing (more commonly known as PCR testing and Rapid ID Now testing) and antibody testing. It does not take into account any testing that a patient has had outside of the [facility] medical record. [facility] LABORATORY SERVICESCOVID VjpihvuLYRN-BbY-2 Rapid ID NOW (no units) ? ? Date ? Value ? 07/14/2020 ? Not Detected ? ? ? 07/08/2020 ? Not Detected ? ? ? 06/13/2020 ? Not Detected ? CoV-2 IgG (no units) ? ? Date ? Value ? 07/03/2020 ? Positive (A) ? ? ? 12/03/2019 ? Negative ? ? ? [facility] LABORATORY SERVICES [facility] with Gdlbsjawugsy9884-73-68 10:28:11* Test Item Value Reference Range Interpretation [...] g/dL 31.6-35.1 L RDW-SD (test code = 04162-4) 48.5 fL 39.0-49.9 RDW-CV (test code = 788-0) 14.8 % 12.0-15.5 PLT (test code = 777-3) See_Comment [Automated message] The system which generated this result transmitted reference range: 166 - 358 10*3/?L. The reference range was not used to interpret this result as normal/abnormal. MPV (test code = 19774-4) 9.5 fL 9.5-12.9 NRBC/100 WBC (test code = 6445876641) See_Comment [Automated message] The system which generated this result transmitted reference range: 0.0 - 10.0 /100 WBCs. The reference range was not used to interpret this result as normal/abnormal. NRBC x10^3 (test code = 3165658443) <0.01 See_Comment [Automated message] The system which generated this result transmitted reference range: 10*3/?L. The reference range was not used to interpret this result as normal/abnormal. GRAN MAT (NEUT) % (test code = 770-8) 77.0 % IMM GRAN % (test code = 8400126519) 0.80 % LYMPH % (test code = 736-9) 12.4 % MONO % (test code = 5905-5) 8.7 % EOS % (test code = 713-8) 0.9 % BASO % (test code = 706-2) 0.2 % GRAN MAT x10^3(ANC) (test code = 8198262901) 11.03 10*3/uL 1.88-7.09 H IMM GRAN x10^3 (test code = 8676344981) 0.12 10*3/uL 0.00-0.06 H LYMPH x10^3 (test code = 731-0) 1.78 10*3/uL 1.32-3.29 MONO x10^3 (test code = 742-7) 1.25 10*3/uL 0.33-0.92 H EOS x10^3 (test code = 711-2) 0.13 10*3/uL 0.03-0.39 BASO x10^3 (test code = 704-7) 0.03 10*3/uL 0.01-0.07 Lab Interpretation (test code = 69227-0) Abnormal [facility] (D) IMMUNE [id number] 01:57:12* Test Item Value Reference Range Interpretation Comme nts RHIG CANDIDATE? (test code = 5055) No- see comment Patient is not a candidate for RhIg- Patient is Rh Positive.Performed at [facility] Laboratory Services - [facility] Blood [address] Free: [phone] No. [id number] [facility] (D) IMMUNE [id number] 01:57:12* Test Item Value Reference Range Interpretation Comme nts RHIG CANDIDATE? (test code = 5055) No- see comment Patient is not a candidate for RhIg- Patient is Rh Positive.Performed at [facility] Laboratory Services - [facility] Blood [place] [address]Toll Free: [phone] No. [id number] [facility] ONLY - SYPHILIS IGG/[id number] 16:55:55* Test Item Value Reference Range Interpretation Comme nts Syphilis IgG/IgM (test code = 67021-4) Non-reactive Non-reactive KARLA (test code = KARLA) Non-reactive - No serologic evidence of T. pallidum infection. Cannot exclude incubating or early syphilis. Submit a second specimen in 2-4 weeks if syphilis is clinically suspected. Equivocal - Further testing to follow. Reactive - Further testing to follow. Lab Interpretation (test code = 69065-4) Normal [facility] - SYPHILIS IGG/[id number] 16:55:55* Test Item Value Reference Range Interpretation Comme [facility] Syphilis IgG/IgM (test code = 22990-7) Non-reactive Non-reactive KARLA (test code = KARLA) Non-reactive - No serologic evidence of T. pallidum infection. Cannot exclude incubating or early syphilis. Submit a second specimen in 2-4 weeks if syphilis is clinically suspected. Equivocal - Further testing to follow. Reactive - Further testing to follow. Lab Interpretation (test code = 03136-6) Normal [facility] CORD [id number] 14:33:45* Test Item Value Reference Range Interpretation Comme [facility] VENOUS BASE EXCESS, CORD (test code = 7597036328) mEq/L VENOUS PH, CORD (test code = 9496266854) 7.25-7.45 VENOUS PC02, CORD (test code = 9612955520) See_Comment [Automated messa ge] The system which generated this result transmitted reference range: 27 - 49 mmHg. The reference range was not used to interpret this result as normal/abnormal. VENOUS PO2, CORD (test code = 4967411090) See_Comment [Automated me ssage] The system which generated this result transmitted reference range: 17 - 41 mmHg. The reference range was not used to interpret this result as normal/abnormal. VENOUS BICARBONATE, CORD (test code = 0876661524) See_Comment [Automated messa ge] The system which generated this result transmitted reference range: 12 - 29 mEq/L. The reference range was not used to interpret this result as normal/abnormal. [facility] CORD [id number] 14:33:45* Test Item Value Reference Range Interpretation Comme [facility] VENOUS BASE EXCESS, CORD (test code = 1445948767) mEq/L VENOUS PH, CORD (test code = 9895766229) 7.25-7.45 VENOUS PC02, CORD (test code = 2264224968) See_Comment [Automated messa ge] The system which generated this result transmitted reference range: 27 - 49 mmHg. The reference range was not used to interpret this result as normal/abnormal. VENOUS PO2, CORD (test code = 7163021627) See_Comment [Automated me ssage] The system which generated this result transmitted reference range: 17 - 41 mmHg. The reference range was not used to interpret this result as normal/abnormal. VENOUS BICARBONATE, CORD (test code = 2852286655) See_Comment [Automated messa ge] The system which generated this result transmitted reference range: 12 - 29 mEq/L. The reference range was not used to interpret this result as normal/abnormal. [facility] CORD [id number] 14:30:44* Test Item Value Reference Range Interpretation Comme nts BASE EXCESS, CORD (test code = 4816956668) mEq/L AC PH, CORD (BEAKER) (test code = 5546635921) 7.18-7.38 PC02, CORD (test code = 3101496799) See_Comment [Automated messa ge] The system which generated this result transmitted reference range: 32 - 66 mmHg. The reference range was not used to interpret this result as normal/abnormal. PO2, CORD (test code = 4315323377) See_Comment [Automated messa ge] The system which generated this result transmitted reference range: 10 - 30 mmHg. The reference range was not used to interpret this result as normal/abnormal. BICARBONATE, CORD (test code = 3520142538) See_Comment [Automated messa ge] The system which generated this result transmitted reference range: 17 - 27 mEq/L. The reference range was not used to interpret this result as normal/abnormal. [facility] CORD [id number] 14:30:44* Test Item Value Reference Range Interpretation Comme nts BASE EXCESS, CORD (test code = 2553172796) mEq/L AC PH, CORD (BEAKER) (test code = 2653273314) 7.18-7.38 PC02, CORD (test code = 5253638297) See_Comment [Automated messa ge] The system which generated this result transmitted reference range: 32 - 66 mmHg. The reference range was not used to interpret this result as normal/abnormal. PO2, CORD (test code = 4965012568) See_Comment [Automated messa ge] The system which generated this result transmitted reference range: 10 - 30 mmHg. The reference range was not used to interpret this result as normal/abnormal. BICARBONATE, CORD (test code = 3687885471) See_Comment [Automated messa ge] The system which generated this result transmitted reference range: 17 - 27 mEq/L. The reference range was not used to interpret this result as normal/abnormal. [facility] GLUCOSE (AUTOMATED)2020-07-15 11:59:25* Test Item Value Reference Range Interpretation Comme nts POCT GLU (test code = 1437024939) 122 mg/dL 70-110 H Lab Interpretation (test cod e = 00842-4) Abnormal [facility] GLUCOSE (AUTOMATED)2020-07-15 11:59:25* Test Item Value Reference Range Interpretation Comme nts POCT GLU (test code = 3819931066) 122 mg/dL 70-110 H Lab Interpretation (test cod e = 64893-3) Abnormal [facility] GLUCOSE (AUTOMATED)2020-07-15 08:15:23* Test Item Value Reference Range Interpretation Comme nts POCT GLU (test code = 9108487821) 122 mg/dL 70-110 H Lab Interpretation (test cod e = 94377-9) Abnormal [facility] GLUCOSE (AUTOMATED)2020-07-15 08:15:23* Test Item Value Reference Range Interpretation Comme nts POCT GLU (test code = 4477779011) 122 mg/dL 70-110 H Lab Interpretation (test cod e = 04455-9) Abnormal [facility] CenterUrinalysis2021-05-29 06:40:28* Test Item Value Reference Range Interpretation Comme nts APPEARANCE (test code = 4179113165) Clear Clear COLOR (test code = 3635600630) Yellow Yellow PH (test code = 2196844890) 4.8-8.0 SP GRAVITY (test code = 5643601325) 1.003-1.030 GLU U QUAL (test code = 5303236892) Normal Normal BLOOD (test code = 5780240689) Negative Negative KETONES (test code = 8411000734) 5 mg/dL Negative A PROTEIN (test code = 2887-8) Negative Negative UROBILIN (test code = 9439924750) Normal Normal BILIRUBIN (test code = 0815658031) Negative Negative NITRITE (test code = 8298709244) Negative Negative LEUK RAJ (test code = 1832796965) Negative Negative RBC/HPF (test code = 3434417485) See_Comment H [Automated messa ge] The system which generated this result transmitted reference range: 0 - 3 HPF. The reference range was not used to interpret this result as normal/abnormal. WBC/HPF (test code = 4762411170) See_Comment [Automated messa ge] The system which generated this result transmitted reference range: 0 - 5 HPF. The reference range was not used to interpret this result as normal/abnormal. BACTERIA (test code = 0718190716) Few Negative A MUCOUS (test code = 2214065697) Moderate Negative LPF A SQ EPITH (test code = 3074432688) See_Comment H [Automated messa ge] The system which generated this result transmitted reference range: <=2 HPF. The reference range was not used to interpret this result as normal/abnormal. Lab Interpretation (test code = 14825-5) Abnormal [facility] CenterUrinalysis2021-05-29 06:40:28* Test Item Value Reference Range Interpretation Comme nts APPEARANCE (test code = 9712133950) Clear Clear COLOR (test code = 4602316253) Yellow Yellow PH (test code = 0859454899) 4.8-8.0 SP GRAVITY (test code = 4196087717) 1.003-1.030 GLU U QUAL (test code = 5980757557) Normal Normal BLOOD (test code = 4201620232) Negative Negative KETONES (test code = 1495906676) 5 mg/dL Negative A PROTEIN (test code = 2887-8) Negative Negative UROBILIN (test code = 4212721928) Normal Normal BILIRUBIN (test code = 4041516216) Negative Negative NITRITE (test code = 5199303554) Negative Negative LEUK RAJ (test code = 7276422742) Negative Negative RBC/HPF (test code = 5750292916) See_Comment H [Automated messa ge] The system which generated this result transmitted reference range: 0 - 3 HPF. The reference range was not used to interpret this result as normal/abnormal. WBC/HPF (test code = 3746675974) See_Comment [Automated messa ge] The system which generated this result transmitted reference range: 0 - 5 HPF. The reference range was not used to interpret this result as normal/abnormal. BACTERIA (test code = 3843683826) Few Negative A MUCOUS (test code = 4847957684) Moderate Negative LPF A SQ EPITH (test code = 9387394066) See_Comment H [Automated messa ge] The system which generated this result transmitted reference range: <=2 HPF. The reference range was not used to interpret this result as normal/abnormal. Lab Interpretation (test code = 08420-1) Abnormal [facility] CenterProtein CREAT Ratio Urine [id number] 06:39:32* Test Item Value Reference Range Interpretation Comme nts T. PROT U (test code = 2888-6) 13 mg/dL CREAT U (test code = 1540806504) 156.2 mg/dL Protein/Creatinine Ratio Uri ne (test code = 7274562407) 0.0-2.0 [facility] CenterProtein CREAT Ratio Urine Khgmdh1458-02-52 06:39:32* Test Item Value Reference Range Interpretation Comme nts T. PROT U (test code = 2888-6) 13 mg/dL CREAT U (test code = 5471429347) 156.2 mg/dL Protein/Creatinine Ratio Uri ne (test code = 1047010728) 0.0-2.0 [facility] CenterHIV 1/2 AG-AB WITH [id number] 06:12:14* Test Item Value Reference Range Interpretation Comme nts HIV Semi-quantitative (test code = 16128-3) Negative Negative KARLA (test code = KARLA) Non-reactive for HIV-1 antigen and HIV-1/HIV-2 antibodies. ?No laboratory evidence of HIV infection. ?Repeat in 2-4 weeks if acute HIV infection is suspected. [facility] CenterHIV 1/2 AG-AB WITH [id number] 06:12:14* Test Item Value Reference Range Interpretation Comme nts HIV Semi-quantitative (test code = 63582-9) Negative Negative KARLA (test code = KARLA) Non-reactive for HIV-1 antigen and HIV-1/HIV-2 antibodies. ?No laboratory evidence of HIV infection. ?Repeat in 2-4 weeks if acute HIV infection is suspected. [facility] CenterHEPATITIS B SURFACE [id number] 06:03:09 * Test Item Value Reference Range Interpretation Comme nts HBsAg Semi-Quantitative (cristian t code = 5195-3) Negative Negative [facility] CenterHEPINEVIL[facility]PITALTIS B SURFACE [id number] 06:03:09 * Test Item Value Reference Range Interpretation Comme nts HBsAg Semi-Quantitative (cristian t code = 5195-3) Negative Negative [facility] CenterUric Acid Eeetx3740-74-87 05:31:11* Test Item Value Reference Range Interpretation Comme nts URIC ACID (test code = 9609305430) 4.7 mg/dL 2.9-6.0 Lab Interpretation (test cod e = 95649-2) Normal [facility] CenterSerum Qwyrkhshmw8572-59-46 05:31:11* Test Item Value Reference Range Interpretation Comme nts CREATININE (test code = 4605348597) 0.49 mg/dL 0.50-1.04 L eGFR (test code = 8420893947) mL/min/1.73m2 KARLA (test code = KARLA) Association [...] imaging tests). Lab Interpretation (test code = 44288-6) Abnormal [facility] CenterSGOT (Asparate Amino Transfer)2020-07-15 05:31:11* Test Item Value Reference Range Interpretation Comme nts AST(SGOT) (test code = 2887039143) 19 U/L 13-40 Lab Interpretation (test cod e = 98305-6) Normal [facility] CenterUric Acid Yjszh8798-36-73 05:31:11* Test Item Value Reference Range Interpretation Comme nts URIC ACID (test code = 7712721415) 4.7 mg/dL 2.9-6.0 Lab Interpretation (test cod e = 84330-4) Normal [facility] CenterSerum Bvvfsmlpdg3752-00-54 05:31:11* Test Item Value Reference Range Interpretation Comme [facility] CREATININE (test code = 5993974607) 0.49 mg/dL 0.50-1.04 L eGFR (test code = 2146780223) mL/min/1.73m2 KARLA (test code = KARLA) Association [...] imaging tests). Lab Interpretation (test code = 19167-8) Abnormal [facility] CenterSGOT (Asparate Amino Transfer)2020-07-15 05:31:11* Test Item Value Reference Range Interpretation Comme nts AST(SGOT) (test code = 1212676663) 19 U/L 13-40 Lab Interpretation (test cod e = 46106-8) Normal [facility] CenterAlanine Amino Transferase (SGPT)2020-07-15 05:31:10* Test Item Value Reference Range Interpretation Comme nts ALTv (test code = 1742-6) 12 U/L 5-35 Lab Interpretation (test cod e = 37515-5) Normal [facility] CenterAlanine Amino Transferase (SGPT)2020-07-15 05:31:10* Test Item Value Reference Range Interpretation Comme nts ALTv (test code = 1742-6) 12 U/L 5-35 Lab Interpretation (test cod e = 55705-1) Normal [facility] CenterLactate Cyydcctcnzfkk9024-57-47 05:30:50* Test Item Value Reference Range Interpretation Comme nts LDH (test code = 4209671283) 459 U/L 300-600 Lab Interpretation (test cod e = 12994-8) Normal [facility] CenterLactate Eybeidleaplzg6499-34-09 05:30:50* Test Item Value Reference Range Interpretation Comme nts LDH (test code = 0508497045) 459 U/L 300-600 Lab Interpretation (test cod e = 44380-1) Normal [facility] CenterType and Screen - ONCE [id number] 05:21:09 * Test Item Value Reference Range Interpretation Comme nts ABO & RH (test code = 20) B POSITIVE Performed at [facility] Laboratory Services - [facility] Blood [address] [address] Free: [phone] No. [id number] IAT (test code = 1185) Negative Performed at [facility] Laboratory Services - [facility] Blood [address] [address]Ebvu Free: [phone] No. [id number] [facility] CenterType and Screen - ONCE [id number] 05:21:09 * Test Item Value Reference Range Interpretation Comme nts ABO & RH (test code = 20) B POSITIVE Performed at [facility] Laboratory Services - [facility] Blood [address] [address]Qzdz Free: [phone] No. [id number] IAT (test code = 1185) Negative Performed at [facility] Laboratory Services - [facility] Blood [place] [id number] Free: [phone] No. [id number] [facility] CenterCBC with Atfumknduwjd9514-28-65 05:01:18* Test Item Value Reference Range Interpretation [...] 31.7 g/dL 31.6-35.1 RDW-SD (test code = 54924-4) 48.0 fL 39.0-49.9 RDW-CV (test code = 788-0) 14.8 % 12.0-15.5 PLT (test code = 777-3) See_Comment [Automated message] The system which generated this result transmitted reference range: 166 - 358 10*3/?L. The reference range was not used to interpret this result as normal/abnormal. MPV (test code = 62855-1) 9.6 fL 9.5-12.9 NRBC/100 WBC (test code = 2357941671) See_Comment [Automated message] The system which generated this result transmitted reference range: 0.0 - 10.0 /100 WBCs. The reference range was not used to interpret this result as normal/abnormal. NRBC x10^3 (test code = 7222227912) <0.01 See_Comment [Automated message] The system which generated this result transmitted reference range: 10*3/?L. The reference range was not used to interpret this result as normal/abnormal. GRAN MAT (NEUT) % (test code = 770-8) 74.5 % IMM GRAN % (test code = 1878803729) 1.60 % LYMPH % (test code = 736-9) 15.7 % MONO % (test code = 5905-5) 7.1 % EOS % (test code = 713-8) 0.9 % BASO % (test code = 706-2) 0.2 % GRAN MAT x10^3(ANC) (test code = 7530417350) 11.97 10*3/uL 1.88-7.09 H IMM GRAN x10^3 (test code = 8073136409) 0.25 10*3/uL 0.00-0.06 H LYMPH x10^3 (test code = 731-0) 2.52 10*3/uL 1.32-3.29 MONO x10^3 (test code = 742-7) 1.14 10*3/uL 0.33-0.92 H EOS x10^3 (test code = 711-2) 0.14 10*3/uL 0.03-0.39 BASO x10^3 (test code = 704-7) 0.04 10*3/uL 0.01-0.07 Lab Interpretation (test code = 64654-5) Abnormal [facility] with Zdmgfqjidunx4394-47-37 05:01:18* Test Item Value Reference Range Interpretation [...] 31.7 g/dL 31.6-35.1 RDW-SD (test code = 23625-9) 48.0 fL 39.0-49.9 RDW-CV (test code = 788-0) 14.8 % 12.0-15.5 PLT (test code = 777-3) See_Comment [Automated message] The system which generated this result transmitted reference range: 166 - 358 10*3/?L. The reference range was not used to interpret this result as normal/abnormal. MPV (test code = 97772-4) 9.6 fL 9.5-12.9 NRBC/100 WBC (test code = 4806436984) See_Comment [Automated message] The system which generated this result transmitted reference range: 0.0 - 10.0 /100 WBCs. The reference range was not used to interpret this result as normal/abnormal. NRBC x10^3 (test code = 3062412030) <0.01 See_Comment [Automated message] The system which generated this result transmitted reference range: 10*3/?L. The reference range was not used to interpret this result as normal/abnormal. GRAN MAT (NEUT) % (test code = 770-8) 74.5 % IMM GRAN % (test code = 2295078103) 1.60 % LYMPH % (test code = 736-9) 15.7 % MONO % (test code = 5905-5) 7.1 % EOS % (test code = 713-8) 0.9 % BASO % (test code = 706-2) 0.2 % GRAN MAT x10^3(ANC) (test code = 2008966088) 11.97 10*3/uL 1.88-7.09 H IMM GRAN x10^3 (test code = 9745059742) 0.25 10*3/uL 0.00-0.06 H LYMPH x10^3 (test code = 731-0) 2.52 10*3/uL 1.32-3.29 MONO x10^3 (test code = 742-7) 1.14 10*3/uL 0.33-0.92 H EOS x10^3 (test code = 711-2) 0.14 10*3/uL 0.03-0.39 BASO x10^3 (test code = 704-7) 0.04 10*3/uL 0.01-0.07 Lab Interpretation (test code = 78836-4) Abnormal [facility] GLUCOSE (AUTOMATED)2020-07-15 04:49:15* Test Item Value Reference Range Interpretation Comme nts POCT GLU (test code = 1316579593) 137 mg/dL 70-110 H Lab Interpretation (test cod e = 91112-9) Abnormal [facility] GLUCOSE (AUTOMATED)2020-07-15 04:49:15* Test Item Value Reference Range Interpretation Comme nts POCT GLU (test code = 7301549450) 137 mg/dL 70-110 H Lab Interpretation (test cod e = 26910-4) Abnormal [facility] CenterCOVID-19 (ID NOW RAPID TESTING)2020-07-15 03:33:51* Test Item Value Reference Range Interpretation Comme nts SARS-CoV-2 Rapid ID NOW (test code = 19592-7) Not Detected Not Detected KARLA (test code = KARLA) ID NOW COVID-19 As say is an isothermal nucleic acid amplification test intended for the qualitative detection of nucleic acid from SARS-CoV-2 viral RNA in nasopharyngeal (ALL PURPOSE CLERK) specimens. It is used under Emergency Use [...] clinically indicated. Lab Interpretation (test code = 97565-1) Normal [facility] CenterCOVID-19 (ID NOW RAPID TESTING)2020-07-15 03:33:51* Test Item Value Reference Range Interpretation Comme nts SARS-CoV-2 Rapid ID NOW (test code = 78548-3) Not Detected Not Detected KARLA (test code = KARLA) ID NOW COVID-19 As say is an isothermal nucleic acid amplification test intended for the qualitative detection of nucleic acid from SARS-CoV-2 viral RNA in nasopharyngeal (ALL PURPOSE CLERK) specimens. It is used under Emergency Use [...] clinically indicated. Lab Interpretation (test code = 60033-4) Normal [facility] CenterFETAL NON-STRESS [id number] 21:45:26NST: cat 1, reactive/reassuring, no ctx, +accels, neg decls, moderate variability [facility] CenterPOWA URINALYSIS W SPECIFIC [id number] 19:59:00* Test Item Value Reference Range Interpretation [...] POCT U APPEAR (test code = 3267) [facility] NON-STRESS [id number] 03:09:14NST reactive and reassuring, no ctx notedUnGrand [facility]INAL[facility] W SPECIFIC NCPHDBY6124-27-63 19:43:00* Test Item Value Reference Range Interpretation [...] POCT U APPEAR (test code = 3267) [facility] NON-STRESS [id number] 20:40:19NST: cat 1, reactive/reassuring, no ctx, +accels, neg decls, moderate variability [facility] URINALYSIS W SPECIFIC [id number] 19:47:00* Test Item Value Reference Range Interpretation [...] POCT U APPEAR (test code = 3267) [facility] CenterURINE QHIVGOU2011-89-89 13:06:59* Test Item Value Reference Range Interpretation Comme nts URINE CULTURE (test code = 630-4) 10,000 - 100,000 CFU/mL mixed aerobic organisms - suggests endogenous microbial contamination [facility] NON-STRESS [id number] 01:18:29NST reactive and reassuring, no ctx notedUnNorth Central Surgical Center HospitalPOCT URINALYSIS W SPECIFIC LNYAISY8432-88-07 18:38:00* Test Item Value Reference Range Interpretation [...] POCT U APPEAR (test code = 3267) [facility] [facility]ESS [id number] 20:01:23NST: cat 1, reactive/reassuring, no ctx, +accels, neg decls, moderate variability [facility] NON-STRESS [id number] 20:01:23NST: cat 1, reactive/reassuring, no ctx, +accels, neg decls, moderate variability [facility] NON-STRESS [id number] 20:01:23NST: cat 1, reactive/reassuring, no ctx, +accels, neg decls, moderate variability [facility] URINALYSIS W SPECIFIC [id number] 19:07:00* Test Item Value Reference Range Interpretation [...] POCT U APPEAR (test code = 3267) [facility] URINALYSIS W SPECIFIC [id number] 19:07:00* Test Item Value Reference Range Interpretation [...] POCT U APPEAR (test code = 3267) [facility] URINALYSIS W SPECIFIC [id number] 19:07:00* Test Item Value Reference Range Interpretation [...] POCT U APPEAR (test code = 3267) [facility] URINALYSIS W SPECIFIC [id number] 14:10:00* Test Item Value Reference Range Interpretation [...] POCT U APPEAR (test code = 3267) [facility] (ID NOW RAPID TESTING)2020-06-14 00:02:00* Test Item Value Reference Range Interpretation Comme nts SARS-CoV-2 Rapid ID NOW (test code = 90651-0) Not Detected Not Detected KARLA (test code = KARLA) ID NOW COVID-19 As say is an isothermal nucleic acid amplification test intended for the qualitative detection of nucleic acid from SARS-CoV-2 viral RNA in nasopharyngeal (ALL PURPOSE CLERK) specimens. It is used under Emergency Use [...] clinically indicated. Lab Interpretation (test code = 94461-8) Normal [facility] GLUCOSE (AUTOMATED)2020-06-13 23:45:50* Test Item Value Reference Range Interpretation Comme nts POCT GLU (test code = 4505949103) 113 mg/dL 70-110 H Lab Interpretation (test cod e = 02530-4) Abnormal [facility] URINALYSIS W SPECIFIC [id number] 15:41:00* Test Item Value Reference Range Interpretation [...] POCT U APPEAR (test code = 3267) [facility] URINALYSIS W SPECIFIC [id number] 14:47:00* Test Item Value Reference Range Interpretation [...] POCT U APPEAR (test code = 3267) [facility] URINALYSIS W SPECIFIC [id number] 14:47:00* Test Item Value Reference Range Interpretation [...] POCT U APPEAR (test code = 3267) [facility] URINALYSIS W SPECIFIC [id number] 14:47:00* Test Item Value Reference Range Interpretation [...] POCT U APPEAR (test code = 3267) [facility] URINALYSIS W SPECIFIC [id number] 16:26:00* Test Item Value Reference Range Interpretation [...] POCT U APPEAR (test code = 3267) [facility] URINALYSIS W SPECIFIC [id number] 19:14:00* Test Item Value Reference Range Interpretation [...] POCT U APPEAR (test code = 3267) [facility] URINALYSIS W SPECIFIC [id number] 20:26:00* Test Item Value Reference Range Interpretation [...] POCT U APPEAR (test code = 3267) [facility] [id number] 12:48:00* Test Item Value Reference Range Interpretation Comme nts URINE CULTURE (test code = 630-4) 10,000 - 100,000 CFU/mL mixed aerobic organisms - suggests endogenous microbial contamination [facility] CenterHIV 1/2 AG-AB WITH [id number] 04:51:00* Test Item Value Reference Range Interpretation Comme nts HIV Semi-quantitative (test code = 90731-8) Negative Negative KARLA (test code = KARLA) Non-reactive for HIV-1 antigen and HIV-1/HIV-2 antibodies. ?No laboratory evidence of HIV infection. ?Repeat in 2-4 weeks if acute HIV infection is suspected. [facility] CenterPRENATAL WORKUP, BLOOD [id number] 03:55:37 * Test Item Value Reference Range Interpretation Comme nts ABO & RH (test code = 20) B POSITIVE Performed at [facility] Laboratory Services - [facility] Blood [address] Free: [phone] No. [id number] IAT (test code = 1185) Negative Performed at [facility] Laboratory [facility] Blood [address] Free: [phone] No. [id number] [facility] CenterSARS-COV-2 [id number] 03:47:00* Test Item Value Reference Range Interpretation Comme nts CoV-2 IgG (test code = 61265-9) Negative Negative Negative result does not rule out acute SARS-CoV-2 infection. Clinical correlation as well as molecular diagnostic test are recommended to rule out acute infection if clinically indicated. KARLA (test code = KARLA) This test has been approved by FDA for emergency use. Lab Interpretation (test code = 85345-5) Normal [facility] CenterGlucose 1 Hour Post [id number] 03:34:00* Test Item Value Reference Range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
[2024-05-01 16:08] LABS: Urine Bilirubin NEGATIVE (Negative); Urine Blood Negative (Negative); Urine Clarity Clear (Clear); Urine Color Colorless (Yellow); Urine Glucose NEGATIVE (Negative); Urine Ketones NEGATIVE (Negative); Urine Microscopic Reflex YN NO UMIC; Urine Nitrite NEGATIVE (Negative); Urine Protein NEGATIVE (Negative); Urine Urobilinogen Normal (Normal)
[2024-05-01] MEDS ORDERED: ONDANSETRON 4 MG/2 ML VIAL ONE (16:08)
[2024-05-01] MEDS ORDERED: NA CHLORIDE 0.9% 1,000 ML ONE (16:09)
[2024-05-01] MEDS ORDERED: KETOROLAC 30 MG/ML INJ ONE (16:09)
[2024-05-01 16:15] LABS: Absolute Eosinophils 0.3 K/uL (0-0.5); Absolute Lymphocytes (CBC) 2.2 K/uL (0.7-4.9); Absolute Monocytes 0.7 K/uL (0.1-1.3); Absolute Neutrophil 7.3 K/uL (1.8-8.0); Basophils % 0.4 % (0-1.3); Eosinophils % 2.9 % (0-4.4); Hematocrit 37.9 % (36.0-45.0); Lymphocytes % 21.2 % (15.3-44.8); MCH 28.5 pg (27.0-35.0); MCHC 34.2 g/dL (32.0-36.0); MCV 83.3 fL (80-100); MPV 7.5 fL (7.6-11.3); Monocytes % 6.2 % (3.3-12.3); Neutrophils % 69.3 % (41.7-73.7); Platelets 378 thou/uL (152-406); RBC Red Blood Cell Count 4.55 M/uL (3.86-4.86); Red Cell Distribution Width 14.1 % (12.1-15.2)
[2024-05-01 16:31] LABS: Albumin 3.3 g/dL (3.4-5.0); Albumin/Globulin Ratio 0.8 (1.1-1.8); Anion Gap 9.5 mEq/L (5.0-15.0); Bilirubin Total 0.3 mg/dL (0.2-1.0); Globulin 4.3 g/dL (2.3-3.5); Potassium 3.5 mEq/L (3.5-5.1); Protein, Total 7.6 g/dL (6.4-8.2)
--- NOTE | 2024-05-01 16:55 | RAD REPORT ---
EXAMINATION: CT ABDOMEN AND PELVIS WITH CONTRAST CLINICAL INDICATION: ABD PAIN TECHNIQUE: CT abdomen and pelvis was performed, after the administration of IV contrast, as per [facility] protocol. Axial, sagittal and coronal reconstructions were obtained. One or more of the following dose reduction techniques were used: Automated exposure control, adjustment of the mA and k V according to patient size, and iterative reconstruction. Unless otherwise specified, incidental findings do not require dedicated imaging follow-up. COMPARISON: No prior exam. FINDINGS: LOWER CHEST: The visualized lung bases are clear. LIVER: Mild fatty liver is present. No focal lesion or biliary dilatation is seen. Cholecystectomy clips. SPLEEN: Normal size. No focal lesion. PANCREAS: No mass, ductal dilation, or ericka-pancreatic fluid. ADRENALS: Normal; no mass. KIDNEYS: Normal size and contour. No hydronephrosis. GASTROINTESTINAL TRACT: No evidence of free air, significant intra-abdominal free fluid, bowel obstru ction or abscess. APPENDIX: Normal appendix. LYMPH NODES: No lymphadenopathy. MUSCULOSKELETAL: Mild lower lumbar spondylosis. ADDITIONAL FINDINGS: None. IMPRESSION: No acute or concerning abnormalities seen in the abdomen or pelvis.
--- NOTE | 2024-05-01 17:02 | ER ---
Nurse's Notes [facility] Name: Gail Juárez Age: 28 yrs Sex: Female : 1995 Arrival Date: 05/01/2024 Time: 15:46 Bed 12 Private MD: Diagnosis: Lower abdominal pain, unspecified Presentation: 05/01 15:57 Chief complaint: Patient states: abdominal pain that started last night and worse aa5 today. Reports nausea, denies vomiting. Coronavirus screen: nausea. 15:57 Method Of Arrival: Ambulatory aa5 15:57 Ebola Screen: Patient denies travel to an Ebola-affected area in the 21 days before aa5 illness onset. Initial Sepsis Screen: Does the patient meet any 2 criteria? No. Patient's initial sepsis screen is negative. Does the patient have a suspected source of infection? No. Patient's initial sepsis screen is negative. Risk Assessment: Do you want to hurt yourself or someone else? Patient reports no desire to harm self or others. 15:57 Acuity: CHAYO 3 aa5 15:57 Onset of symptoms was April 2024. 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 - Infectious Disease History:: Denies. - Social history:: Smoking status: Patient denies any tobacco usage or history of. Screenin:57 [facility] ED Fall Risk Assessment (Adult) History of falling in the last 3 months, aa5 including since admission No falls in past 3 months (0 pts) Confusion or Disorientation No (0 pts) Intoxicated or Sedated No (0 pts) Impaired Gait No (0 pts) Mobility Assist Device Used No (0 pt) Altered Elimination No (0 pt) Score/Fall Risk Level 0 - 2 = Low Risk Oriented to surroundings, Maintained a safe environment, Educated pt \T\ family on fall prevention, incl call for assistance when getting out of bed, Assessed \T\ reinforced patient's understanding of fall precautions. Abuse screen: Denies threats or abuse. Nutritional screening: No deficits noted. Tuberculosis screening: No symptoms or risk factors identified. Assessment: 15:57 General: Appears in no apparent distress. comfortable, Behavior is calm, cooperative, aa5 Denies. Pain: Complains of pain in right lower quadrant and left lower quadrant Pain does not radiate. Pain currently is 3 out of 10 on a pain scale. Quality of pain is described as crampy, Pain began 1 day ago. Is intermittent. Neuro: Level of Consciousness is awake, alert, obeys commands, Oriented to person, place, time, situation, Appropriate for age. Cardiovascular: Patient's skin is warm and dry. Respiratory: Respiratory effort is even, unlabored, Respiratory pattern is regular. GI: Abdomen is round Abd is soft Abdomen is tender to palpation in right lower quadrant. : No signs and/or symptoms were reported regarding the genitourinary system. Derm: Skin is pink, warm \T\ dry. Musculoskeletal: No signs and/or symptoms reported regarding the musculoskeletal system. 15:57 EENT: No signs and/or symptoms were reported regarding the EENT system. aa5 16:45 Reassessment: Patient is alert, oriented x 3, equal unlabored respirations, skin aa5 warm/dry/pink. Patient states feeling better. 18:10 Reassessment: Patient is alert, oriented x 3, equal unlabored respirations, skin aa5 warm/dry/pink. Vital Signs: 15:57 BP 149 / 84; Pulse 82; Resp 16 S; Temp 99(O); Pulse Ox 98% on R/A; Weight 112.49 kg aa5 (R); Height 5 ft. 7 in. (R); 15:57 Body Mass Index 38.84 (112.49 kg, 170.18 cm) aa5 ED Course: 15:50 Patient arrived in ED. al6 15:53 Barb Wilburn [facility]C [facility]. kb 15:53 Daniel Louie MD is Attending Physician. kb 15:57 Arm band placed on Patient placed in an exam room, on a stretcher. aa5 15:57 Patient has correct armband on for positive identification. Bed in low position. Call aa5 light in reach. Side rails up X 1. 15:58 Domi Gonzales, RN is Primary Nurse. aa5 15:58 Triage completed. aa5 16:10 Initial lab(s) drawn, by me, sent to lab. Urine collected: clean catch specimen, clear. aa5 Inserted saline lock: 20 gauge in right antecubital area, using aseptic technique. Blood collected. Flushed with 10 mL NS. 16:11 CBC with Diff Sent. aa5 16:11 CMP Sent. aa5 16:11 Lipase Sent. aa5 16:50 CT Abd/Pelvis - IV Contrast Only In Process Unspecified. EDMS 18:11 No provider procedures requiring assistance completed. IV discontinued, intact, aa5 bleeding controlled, No redness/swelling at site. Pressure dressing applied. Administered Medications: 16:23 Drug: Ondansetron IVP 4 mg IVP once; over 2 minutes Route: IVP; Site: right antecubital;aa5 16:45 Follow up: Response: No adverse reaction aa5 16:23 Drug: NS 0.9% IV 1000 ml IV at 1 bolus Per protocol; to be given as a bolus over 60 aa5 minutes Route: IV; Rate: 1 bolus; Site: right antecubital; 17:23 Follow up: IV Status: Completed infusion; IV Intake: 1000ml aa5 16:24 Drug: TORadol - Ketorolac IVP 15 mg IVP once Route: IVP; Site: right antecubital; aa5 16:45 Follow up: Response: No adverse reaction aa5 Medication: 17:23 VIS not applicable for this client. aa5 Intake: 17:23 IV: 1000ml; Total: 1000ml. aa5 Outcome: 17:01 Discharge ordered by . kb 18:10 Discharged to home ambulatory, aa5 18:10 Condition: stable 18:10 Discharge instructions given to patient, Instructed on discharge instructions, follow up and referral plans. medication usage, Demonstrated understanding of instructions, follow-up care, medications, Prescriptions given X 1, 18:12 Patient left the ED. aa5 Signatures: Dispatcher [employer] EDMS Barb Wilburn, KLAUSC HARSHA-Domi Clement RN RN aa5 Essie Benitez Corrections: (The following items were deleted from the chart) 16:34 16:26 General: Appears in no apparent distress. comfortable, Behavior is calm, aa5 cooperative, Denies aa5 16:34 16:26 Pain: Complains of pain in right lower quadrant and left lower quadrant Pain does aa5 not radiate. Pain currently is 3 out of 10 on a pain scale. Quality of pain is described as crampy, Pain began 1 day ago. Is intermittent, aa5 34 16:26 Neuro: Level of Consciousness is awake, alert, obeys commands, Oriented to aa5 person, place, time, situation, Appropriate for age aa5 :34 16:26 Cardiovascular: Patient's skin is warm and dry. aa5 aa5 :34 16:26 Respiratory: Respiratory effort is even, unlabored, Respiratory pattern is aa5 regular, aa5 34 16:26 GI: Abdomen is round Abd is soft Abdomen is tender to palpation in right lower aa5 quadrant aa5 34 16:26 : No signs and/or symptoms were reported regarding the genitourinary system. aa5aa5 :34 16:26 EENT: No signs and/or symptoms were reported regarding the EENT system. aa5 aa5 :34 16:26 Derm: Skin is pink, warm \T\ dry. aa5 aa5 34 16:26 Musculoskeletal: No signs and/or symptoms reported regarding the musculoskeletal aa5 system. aa5
--- NOTE | 2024-05-01 17:02 | EDPHYS ---
Physician Documentation [facility] Name: Gail Juárez Age: 28 yrs Sex: Female : 1995 Arrival Date: 05/01/2024 Time: 15:46 Bed 12 Private MD: ED Physician Daniel Louie HPI: 05/01 15:55 This 28 yrs old Female presents to ER via Unassigned with complaints of Abdominal Pain. kb 15:55 Pt is a 28 year old female who presents for RLQ pain that started last night and kb progressively got worse today. Reports nausea. Denies vomiting, diarrhea, fever. LMP 03/29/24. Concerned about ectopic since her cycle is late and she has had a tubal ligation. 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 - Infectious Disease History:: Denies. - Social history:: Smoking status: Patient denies any tobacco usage or history of. ROS: 15:56 Constitutional: As per HPI kb Exam: 15:56 Constitutional: This is a well developed, well nourished patient who is awake, alert, kb and in no acute distress. Head/Face: Normocephalic, atraumatic. ENT: Moist Mucous membranes Cardiovascular: Regular rate Respiratory: Respirations even and unlabored. No increased work of breathing. Talking in full sentences Skin: Warm, dry with normal turgor. Normal color. MS/ Extremity: Pulses equal, no cyanosis. Neurovascular intact. Full, normal range of motion. Neuro: Awake and alert, GCS 15, oriented to person, place, time, and situation. 16:12 Abdomen/GI: Inspection: abdomen appears normal, Bowel sounds: normal, Palpation: soft, kb in all quadrants, mild abdominal tenderness, in the right upper quadrant and right lower quadrant, Vital Signs: 15:57 BP 149 / 84; Pulse 82; Resp 16 S; Temp 99(O); Pulse Ox 98% on R/A; Weight 112.49 kg aa5 (R); Height 5 ft. 7 in. (R); 15:57 Body Mass Index 38.84 (112.49 kg, 170.18 cm) aa5 MDM: 15:53 Medical Screening Exam initiated kb 16:36 Data reviewed: vital signs, nurses notes. kb 17:00 Differential diagnosis: appendicitis, Ectopic , non-specific abd pain, kb Ureterolithiasis, urinary tract infection. Counseling: I had a detailed discussion with the patient and/or guardian regarding the historical points, exam findings, and any diagnostic results supporting the discharge/admit diagnosis, lab results, radiology results, the need for outpatient follow up, a family practitioner, an OB/Gyne specialist, to return to the emergency department if symptoms worsen or persist or if there are any questions or concerns that arise at home. 05/01 15:55 Order name: CBC with Diff; Complete Time: 16:32 kb 05/01 15:55 Order name: CMP; Complete Time: 16:32 kb 05/01 15:55 Order name: Lipase; Complete Time: 16:32 kb 05/01 15:55 Order name: Test, Urine; Complete Time: 16:12 kb 05/01 15:55 Order name: Urinalysis w/ reflexes; Complete Time: 16:09 kb 05/01 15:55 Order name: CT Abd/Pelvis - IV Contrast Only; Complete Time: 16:56 kb 05/01 15:55 Order name: IV Saline Lock; Complete Time: 16:11 kb 05/01 15:55 Order name: Labs collected and sent; Complete Time: 16:11 kb Administered Medications: 16:23 Drug: Ondansetron IVP 4 mg IVP once; over 2 minutes Route: IVP; Site: right antecubital;aa5 16:45 Follow up: Response: No adverse reaction aa5 16:23 Drug: NS 0.9% IV 1000 ml IV at 1 bolus Per protocol; to be given as a bolus over 60 aa5 minutes Route: IV; Rate: 1 bolus; Site: right antecubital; 17:23 Follow up: IV Status: Completed infusion; IV Intake: 1000ml aa5 16:24 Drug: TORadol - Ketorolac IVP 15 mg IVP once Route: IVP; Site: right antecubital; aa5 16:45 Follow up: Response: No adverse reaction aa5 Disposition: 18:28 Co-signature as Attending Physician, Daniel Louie MD I reviewed the patient's care rt provided by the Advanced Practice Provider and agree with the diagnosis and treatment plan. Disposition Summary: 05/01/24 17:01 Discharge Ordered Notes: Location: Home kb Condition: Stable kb Diagnosis - Lower abdominal pain, unspecified kb Followup: kb - With: Emergency Department - When: As needed - Reason: Worsening of condition Followup: kb - With: Private Physician - When: 2 - 3 days - Reason: Recheck today's complaints, Continuance of care, Re-evaluation by your physician Discharge Instructions: - Discharge Summary Sheet kb - Abdominal Pain, Adult, [id number] kb Forms: - Medication Reconciliation Form kb - Antibiotic Education kb - Prescription Opioid Use kb - Patient Portal Instructions kb - Leadership Thank You Letter kb Prescriptions: - Diclofenac Sodium 75 mg Oral tablet, delayed release (enteric coated) - take 1 tablet ORAL route 2 times per day As needed; 30 tablet; Refills: 0, kb Product Selection Permitted Signatures: Dispatcher [employer] EDMS Barb Wilburn, HARSHA-C HARSHA-Domi Clement, RN RN aa5 Daniel Louie MD MD rt Corrections: (The following items were deleted from the chart) 17:01 15:55 Pt is a 28 year old female who presents for RLQ pain that started last night and kb progressively got worse today. Reports nausea. Denies vomiting, diarrhea, fever. LMP 03/29/24. . kb
[2024-05-01 18:16] VITALS: BP 149/84; TEMP 99; O2SAT 98
== END 2024-05-01 18:12 | disposition home or self-care (01) ==
LOC: ER 15:46
DX: R10.31 Right lower quadrant pain (principal)
CPT/HCPCS: 36415; 74177; 80053; 81003; 81025; 83690; 85025; 96361; 96374; 96375; 99284; J2405; J7030; Q9967